=== PATIENT | female | born 1955 | race Caucasian/White ===

== ENCOUNTER 2016-04-28 11:51 | Emergency (ER) | payer MEDICARE, OTHER ==
[~2016-04-28] VITALS: Ht 157.5 cm; Wt 57.6 kg
[~2016-04-28 11:51] MED LIST: ALBU0.63 IH; DILT120C97 PO; DOXY100C2 PO; Doxycycline Hyclate PO; GLIM1TAB2 PO; GUAI600T38 PO; HYDR-2762 PO; HYDR-971 PO; LEVO500T38 PO; LIDO700A4 TP; LOSA25TA4 PO; METH4TAB2 PO; MONT10TA6 PO; ONDA4TAB7 PO; PANT40GR PO; PROAIR HFA8.5 GM IH; PROM25TA10 PO; SIMV40TA3 PO; TIOT18CA IH; VALS80TA3 PO
[2016-04-28] MEDS ORDERED: IV NORMAL SALINE 1000ML BAG 1,000 ML IV SCH (13:01)
[2016-04-28] MEDS ORDERED: ONDANSETRON PF 4 MG/2 ML VIAL. IV ONE (13:15)
[2016-04-28 13:16] LABS: BASO % 1 % (0-3); EOS % 2 % (0-3); HEMATOCRIT 36.8 % (36.0-47.0); HEMOGLOBIN 12.3 g/dL (12.0-15.5); LYMPH # 0.8 x10^3/uL (1.0-4.8); LYMPH % 10 % (24-48); MEAN CORPUSCULAR HEMOGLOBIN 29 pg (25-35); MEAN CORPUSCULAR HGB CONC 33 g/dL (31-37); MEAN CORPUSCULAR VOLUME 87 fL (79-100); MONO % 8 % (0-9); NEUT % 80 % (31-73); PLATELET COUNT 477 x10^3/uL (140-400); RED BLOOD COUNT 4.25 x10^6/uL (3.50-5.40); RED CELL DISTRIBUTION WIDTH 13.8 % (11.5-14.5); WHITE BLOOD COUNT 8.4 x10^3/uL (4.0-11.0)
[2016-04-28] MEDS: MORPHINE SULFATE 4 MG/ML DISP.SYRIN. IV/SQ PRN ×2 (13:25→14:48)
[2016-04-28 13:30] LABS: ALBUMIN 3.5 g/dL (3.4-5.0); DIRECT BILIRUBIN 0.1 mg/dL (0.0-0.2); TOTAL BILIRUBIN 0.6 mg/dL (0.2-1.0); TOTAL PROTEIN 7.4 g/dL (6.4-8.2)
[2016-04-28] MEDS ORDERED: IOHEXOL 300 MG/ML 75 ML VIAL IV ONE (13:30)
[2016-04-28 13:36] LABS: BILIRUBIN,URINE NEGATIVE (NEG); GLUCOSE,URINE NEGATIVE (NEG); NITRITE,URINE NEGATIVE (NEG); PROTEIN,URINE NEGATIVE (NEG-TRACE); UROBILINOGEN,URINE 0.2 mg/dL (0.2 mg/dL)
[2016-04-28 13:48] LABS: BACTERIA,URINE MANY /HPF (0-FEW); RBC,URINE OCC /HPF (0-2); SQUAMOUS EPITHELIAL CELL,UR FEW /LPF
--- NOTE | 2016-04-28 14:19 | RAD ---
CT of the abdomen and pelvis with contrast, 04/28/2016: History: Left-sided pain Multidetector CT imaging was performed following an IV bolus injection of iodinated contrast material. No oral contrast material was administered for this exam. There is a moderate thoracolumbar scoliosis. There is chronic atelectasis and/or scarring posteromedially in the right base, improved since the previous study. A small pleural effusion evident on the previous study has diminished with only a trace amount of residual right-sided pleural fluid. The gallbladder is surgically absent. Unchanged small low-density lesions in the liver are compatible with cysts. The pancreas demonstrates fatty change. The spleen is unremarkable. There is deformity of the lower pole of the left kidney with increased cortical densities compatible with calcifications and/or sutures. These postsurgical findings are unchanged. The kidneys show no evidence of obstruction. A couple of unchanged tiny low density lesions in the right kidney are too small to definitively characterize but are probably cysts. The abdominal aorta is unremarkable. Portions of the lower pelvis are partially obscured by artifacts arising from a right hip prosthesis. No abdominal or pelvic adenopathy is seen. Several small sigmoid diverticula are noted. There is mild streaky increased density in the paracolic fat at the junction of the descending colon and sigmoid. The appearance suggests mild inflammation or scarring. No paracolic abscess is identified. There is a moderate amount stool in the colon. The cecum extends medially to the midline. The small bowel loops are unremarkable. No free air or free fluid is evident in the abdomen or pelvis. Vertebrae in the lower thoracic spine are partially fused. A small sclerotic focus in the superior aspect of the left femoral head suggests avascular necrosis. IMPRESSION: 1. Minimal sigmoid diverticulosis. 2. Minimal paracolic inflammation at the junction of the descending colon and sigmoid colon 3. Previous partial left nephrectomy. 4. Probable right renal and hepatic cysts. 5. Chronic right basilar atelectasis and/or scarring, improved since 10/30/2015. 5. Chronic musculoskeletal findings as described above.
[2016-04-28] MEDS ORDERED: DICY10CA53 PO (14:49)
[2016-04-28] MEDS ORDERED: AMOX1TAB61 PO (14:49)
--- NOTE | 2016-04-28 14:50 | PHYS DOC ---
Past Medical History Past Medical History: Asthma, COPD, Diabetes-Type II, Hypertension, Other Additional Past Medical Histor: SCOLIOSIS Past Surgical History: Hip Replacement, Other Additional Past Surgical Histo: PARTIAL LEFT KIDNEY REMOVED, LEFT OVARY REMOVED , R hip Alcohol Use: None Drug Use: None Adult General Chief Complaint Chief Complaint: ABDOMINAL PAIN HPI HPI Patient is a 60 year old female who presents with achy, constant LLQ abd pain for the past month that has gradually worsened over the past week. She is eating , drinking, urinating and stooling normal. She denies food fear or pain with eating. She denies f/c, dysuria, hematuria, diarrhea, constipation, bloody or dark stools. She states she has never had pain like this before. She took a home hydrocodone without relief prior to calling EMS. Review of Systems Review of Systems Constitutional: Denies fever or chills [] Eyes: Denies change in visual acuity, redness, or eye pain [] HENT: Denies nasal congestion or sore throat [] Respiratory: Denies cough or shortness of breath [] Cardiovascular: No additional information not addressed in HPI [] GI: Denies nausea, vomiting, bloody stools or diarrhea [] : Denies dysuria or hematuria [] Musculoskeletal: Denies back pain or joint pain [] Integument: Denies rash or skin lesions [] Neurologic: Denies headache, focal weakness or sensory changes [] Endocrine: Denies polyuria or polydipsia [] Current Medications Current Medications Current Medications Medications (Trade) Dose Ordered Sig/Thanh Start Time Stop Time Status Last Admin Dose Admin Iohexol (Omnipaque 300 Mg/ml) 75 ml 1X ONCE 04/28/16 13:30 04/28/16 13:31 DC 04/28/16 13:50 75 ML Morphine Sulfate 4 mg 4 mg PRN Q15MIN PRN 04/28/16 13:15 04/28/16 15:31 DC 04/28/16 14:48 4 MG Ondansetron HCl (Zofran) 4 mg 1X ONCE 04/28/16 13:15 04/28/16 13:16 DC 04/28/16 13:25 4 MG Sodium Chloride (Iv Sodium Chloride 0.9% 1000ml Bag) 1,000 ml @ 1,000 mls/hr Q1H 04/28/16 13:01 04/28/16 14:00 DC 04/28/16 13:25 1,000 MLS/HR Allergies Allergies Allergies Coded Allergies Type Severity Reaction Last Updated Verified aspirin Allergy Intermediate 07/24/13 Yes Physical Exam Physical Exam Constitutional: Well developed, well nourished, no acute distress, non-toxic appearance. [] HENT: Normocephalic, atraumatic, bilateral external ears normal, oropharynx moist, nose normal. [] Eyes: PERRLA, EOMI. [] Neck: Normal range of motion, supple. [] Cardiovascular:Heart rate regular rhythm, no murmur [] Lungs & Thorax: Bilateral breath sounds clear to auscultation [] Abdomen: Bowel sounds normal, soft, moderate LLQ tenderness, no guarding or rebound. [] Skin: Warm, dry, no erythema, no rash. [] Back: No tenderness, no CVA tenderness. [] Extremities: ROM intact, no edema. [] Neurologic: Alert and oriented X 3, normal motor function, normal sensory function, no focal deficits noted. [] Psychologic: Affect normal, judgement normal, mood normal. [] Current Patient Data Vital Signs Vital Signs Date Time Temp Pulse Resp B/P Pulse Ox O2 Delivery O2 Flow Rate FiO2 04/28/16 15:20 104 18 135/61 95 Room Air 04/28/16 14:48 2 04/28/16 11:52 98.2 98.2 Lab Values Laboratory Tests Test 04/28/16 12:30 04/28/16 13:19 04/28/16 13:20 White Blood Count 8.4x10^3/uL (4.0-11.0) Red Blood Count 4.25x10^6/uL (3.50-5.40) Hemoglobin 12.3g/dL (12.0-15.5) Hematocrit 36.8% (36.0-47.0) Mean Corpuscular Volume 87fL (79-100) Mean Corpuscular Hemoglobin 29pg (25-35) Mean Corpuscular Hemoglobin Concent 33g/dL (31-37) Red Cell Distribution Width 13.8% (11.5-14.5) Platelet Count 477x10^3/uL (140-400) H Neutrophils (%) (Auto) 80% (31-73) H Lymphocytes (%) (Auto) 10% (24-48) L Monocytes (%) (Auto) 8% (0-9) Eosinophils (%) (Auto) 2% (0-3) Basophils (%) (Auto) 1% (0-3) Neutrophils # (Auto) 6.7x10^3uL (1.8-7.7) Lymphocytes # (Auto) 0.8x10^3/uL (1.0-4.8) L Monocytes # (Auto) 0.7x10^3/uL (0.0-1.1) Eosinophils # (Auto) 0.2x10^3/uL (0.0-0.7) Basophils # (Auto) 0.0x10^3/uL (0.0-0.2) Total Bilirubin 0.6mg/dL (0.2-1.0) Direct Bilirubin 0.1mg/dL (0.0-0.2) Aspartate Amino Transferase (AST) 16U/L (15-37) Alanine Aminotransferase (ALT) 14U/L (14-59) Alkaline Phosphatase 108U/L (46-116) Total Protein 7.4g/dL (6.4-8.2) Albumin 3.5g/dL (3.4-5.0) Lipase 50U/L (73-393) L POC Hemoglobin 12.6g/dL (12-15) POC Hematocrit 37% (36-40) POC Sodium 139mmol/L (135-145) POC Potassium 3.7mmol/L (3.5-5.0) POC Chloride 96mmol/L (98-110) L POC Total CO2 29mmol/L (23-32) Anion Gap 18mmol/L (6-14) H POC Blood Urea Nitrogen 9mg/dL (8-26) POC Creatinine 0.7mg/dL (0.5-1.4) Glucose Level 88mg/dL (70-99) POC Ionized Calcium (Cristal) 1.11mmol/L (1.13-1.32) L Urine Collection Type Unknown Urine Color Yellow Urine Clarity Clear Urine pH 8.0 Urine Specific [place] 1.010 Urine Protein Negativemg/dL (NEG-TRACE) Urine Glucose (UA) Negativemg/dL (NEG) Urine Ketones (Stick) Tracemg/dL (NEG) Urine Blood Negative (NEG) Urine Nitrite Negative (NEG) Urine Bilirubin Negative (NEG) Urine Urobilinogen Dipstick 0.2mg/dL (0.2 mg/dL) Urine Leukocyte Esterase Small (NEG) Urine RBC Occ/HPF (0-2) Urine WBC 1-4/HPF (0-4) Urine Squamous Epithelial Cells Few/LPF Urine Bacteria Many/HPF (0-FEW) Urine Hyaline Casts Occasional/HPF Laboratory Tests 04/28/16 12:30 Laboratory Tests 04/28/16 13:19 Radiology/Procedures Radiology/Procedures CT abdomen and pelvis with IV contrast IMPRESSION: 1. Minimal sigmoid diverticulosis. 2. Minimal paracolic inflammation at the junction of the descending colon and sigmoid colon 3. Previous partial left nephrectomy. 4. Probable right renal and hepatic cysts. 5. Chronic right basilar atelectasis and/or scarring, improved since 10/30/2015. 5. Chronic musculoskeletal findings as described above. DICTATED and SIGNED BY: BREEZY BAKER MD DATE: 04/28/16 1402 Course & Med Decision Making Course & Med Decision Making Pertinent Labs and Imaging studies reviewed. (See chart for details) Lab with left shift and thombocytosis, otherwise unremarkable. CT as above concerning for colitis. Her symptoms have improved after medications. She is tolerating po intake. Will treat with po antibiotics and bentyl. Return precautions given. She understood and agrees with plan. Dragon Disclaimer Dragon Disclaimer This electronic medical record was generated, in whole or in part, using a voice recognition dictation system. Departure Departure Impression: Primary Impression: Colitis Disposition: 01 HOME, SELF-CARE Condition: STABLE Referrals: JACKIE REESE MD (PCP) Patient Instructions: Colitis Additional Instructions: Take Augmentin for colitis. Take Bentyl for abdominal pain. Follow-up with your primary care doctor within one week. Return for any concerns. Scripts Dicyclomine Hcl (Bentyl)10 Mg [id number] Mg PO TID #30 TAB Prov:Lucas ARTHUR MD 04/28/16 Amoxicillin/Potassium Clav (Augmentin 875-125 Tablet)1 Each Tablet1 Tab PO BID # 20 TAB Prov:Lucas ARTHUR MD 04/28/16 Lucas ARTHUR MD Apr 28, 2016 14:49
[2016-04-28 15:02] LABS: POTASSIUM ISTAT 3.7 mmol/L (3.5-5.0)
--- NOTE | 2016-04-28 15:07 | ACF ---
Admission Forms Criteria Admission Criteria Met?: Yes VENITA BOLIVAR Apr 28, 2016 15:07
[2016-04-28 15:20] VITALS: BP 135/61
== END 2016-04-28 15:20 | disposition home or self-care (01) ==
LOC: ER 11:51
DX: K52.9 Noninfective gastroenteritis and colitis, unspecified (principal); J45.909 Unspecified asthma, uncomplicated; J44.9 Chronic obstructive pulmonary disease, unspecified; E11.9 Type 2 diabetes mellitus without complications; I10 Essential (primary) hypertension; M41.9 Scoliosis, unspecified; Z90.5 Acquired absence of kidney; Z88.6 Allergy status to analgesic agent; Z90.721 Acquired absence of ovaries, unilateral
CPT/HCPCS: 36415; 74177; 80047; 80076; 81001; 83690; 85027; 87086; 96361; 96374; 96375; 96376; 99285; J2270; J2405; J7030; Q9967

== ENCOUNTER 2016-08-16 13:50 | Inpatient (IN) | payer OTHER ==
[~2016-08-16] VITALS: Ht 157.5 cm; Wt 58.8 kg
[~2016-08-16 13:50] MED LIST changes: +AMOX1TAB61 PO; +DICY10CA53 PO; +DILT120C80 PO; -DILT120C97 PO; -GUAI600T38 PO; +GUAI600T47 PO; -LEVO500T38 PO; +LEVO500T59 PO
[2016-08-16] MEDS ORDERED: NITROGLYCERIN SUBLINGUAL 0.4 MG BOTTLE OF 25. SL PRN ×2 (14:00→15:00)
[2016-08-16] MEDS ORDERED: fentaNYL PF VIAL 100 MCG/2 ML VIAL IV PRN (14:00)
--- NOTE | 2016-08-16 14:04 | ED.ADGEN ---
Past Medical History Past Medical History: Asthma, COPD, Diabetes-Type II, Hypertension, Other Additional Past Medical Histor: SCOLIOSIS Past Surgical History: Hip Replacement, Other Additional Past Surgical Histo: PARTIAL LEFT KIDNEY REMOVED, LEFT OVARY REMOVED , R hip Alcohol Use: None Drug Use: None Adult General Chief Complaint Chief Complaint: CHEST PAIN HPI HPI Patient is a 60 year old woman, history of COPD, CAD, hypertension, who presents to the emergency department via EMS with a complaint of chest pain. Patient states the chest pain began at 1 PM, is located in the step sternal chest, associated with some shortness of breath, denies any nausea, vomiting, lightheadedness or dizziness, any weakness in this or tingling, any radiation of the pain. She states that she had similar symptoms several years ago, which were more mild, associated with an asthma attack. She did attempt using albuterol inhaler DuoNeb without relief. She did this shortly before calling EMS. She states that she has known CAD, and last received a stress test 3 or 4 years ago, but is unable to name her supply analyst or give additional information. Does not believe she had a catheterization. Denies any recent travel or surgery, and history of DVT or PE. States she's been compliant with her metformin. Denies any other symptoms or complaints at this time. Received nitroglycerin en route to the ED 1 the EMS states pain went from a 10 to an 8. She states she is allergic to aspirin. Review of Systems Review of Systems Constitutional: Denies fever or chills. [] Eyes: Denies change in visual acuity. [] HENT: Denies nasal congestion or sore throat. [] Respiratory: Denies cough, complaining of mild shortness of breath with chest pain since 1 PM this afternoon. Mild improvement with DuoNeb treatment. Cardiovascular: Substernal chest pain, no edema. GI: Denies abdominal pain, nausea, vomiting, bloody stools or diarrhea. [] : Denies dysuria. [] Musculoskeletal: Denies back pain or joint pain. [] Integument: Denies rash. [] Neurologic: Denies headache, focal weakness or sensory changes. [] Endocrine: Denies polyuria or polydipsia. [] Lymphatic: Denies swollen glands. [] Psychiatric: Denies depression or anxiety. [] Current Medications Current Medications Current Medications Medications (Trade) Dose Ordered Sig/Thanh Start Time Stop Time Status Last Admin Dose Admin Acetaminophen (Tylenol) 650 mg PRN Q4HRS PRN 08/16/16 15:00 08/17/16 14:59 Albuterol/ Ipratropium (Duoneb) 3 ml RTQID 08/16/16 16:00 08/17/16 15:59 Dextrose (Dextrose 50%-Water Syringe) 12.5 gm PRN Q15MIN PRN 08/16/16 15:00 Fentanyl Citrate (Fentanyl 2ml Vial) 25 mcg PRN Q15MIN PRN 08/16/16 14:00 08/17/16 13:59 08/16/16 14:13 25 MCG Insulin Aspart (NovoLOG) 0-5 UNITS TIDWMEALS 08/16/16 17:00 Methylprednisolone Sodium Succinate (SOLU-Medrol 125MG VIAL) 125 mg 1X ONCE 08/16/16 14:30 08/16/16 14:31 DC 08/16/16 14:15 125 MG Morphine Sulfate 4 mg PRN Q2HR PRN 08/16/16 15:00 08/17/16 14:59 Nitroglycerin (Nitrostat) 0.4 mg PRN Q5MIN PRN 08/16/16 15:00 08/17/16 14:59 Ondansetron HCl (Zofran) 4 mg PRN Q8HRS PRN 08/16/16 15:00 08/17/16 14:59 Prednisone (Prednisone) 40 mg DAILY 08/17/16 09:00 UNV Allergies Allergies Allergies Coded Allergies Type Severity Reaction Last Updated Verified aspirin Allergy Intermediate 07/24/13 Yes Physical Exam Physical Exam Constitutional: Well developed, well nourished, no acute distress, non-toxic appearance. [] HENT: Normocephalic, atraumatic, bilateral external ears normal, oropharynx moist, no oral exudates, nose normal. [] Eyes: PERRLA, EOMI, conjunctiva normal, no discharge. [] Neck: Normal range of motion, no tenderness, supple, no stridor. [] Cardiovascular:Heart rate regular rhythm, no murmur, S1, S2, no rubs or gallops. [] Lungs & Thorax: Patient with wheezing throughout, expiratory greater than inspiratory, diminished breath sounds throughout. No chest wall crepitus or tenderness. [] Abdomen: Bowel sounds normal, soft, mild initial patient epigastric region, no rebound, rigidity, no guarding, no masses, no pulsatile masses. [] Skin: Warm, dry, no erythema, no rash. [] Back: No tenderness, patient with severe scoliosis and kyphosis, no CVA tenderness. [] Extremities: No tenderness, no cyanosis, no clubbing, ROM intact, no edema. Negative Homans sign. [] Neurologic: Alert and oriented X 3, normal motor function, normal sensory function, no focal deficits noted. [] Psychologic: Affect normal, judgement normal, mood normal. [] Current Patient Data Vital Signs Vital Signs Date Time Temp Pulse Resp B/P (MAP) Pulse Ox O2 Delivery O2 Flow Rate FiO2 08/16/16 14:13 20 08/16/16 14:13 93 Room Air 08/16/16 13:55 98.8 103 108/77 (87) 98.8 Lab Values Laboratory Tests Test 08/16/16 13:58 White Blood Count 6.6 x10^3/uL (4.0-11.0) Red Blood Count 4.01 x10^6/uL (3.50-5.40) Hemoglobin 11.7 g/dL (12.0-15.5) L Hematocrit 34.6 % (36.0-47.0) L Mean Corpuscular Volume 86 fL (79-100) Mean Corpuscular Hemoglobin 29 pg (25-35) Mean Corpuscular Hemoglobin Concent 34 g/dL (31-37) Red Cell Distribution Width 15.1 % (11.5-14.5) H Platelet Count 417 x10^3/uL (140-400) H Neutrophils (%) (Auto) 74 % (31-73) H Lymphocytes (%) (Auto) 15 % (24-48) L Monocytes (%) (Auto) 9 % (0-9) Eosinophils (%) (Auto) 2 % (0-3) Basophils (%) (Auto) 1 % (0-3) Neutrophils # (Auto) 4.9 x10^3uL (1.8-7.7) Lymphocytes # (Auto) 1.0 x10^3/uL (1.0-4.8) Monocytes # (Auto) 0.6 x10^3/uL (0.0-1.1) Eosinophils # (Auto) 0.1 x10^3/uL (0.0-0.7) Basophils # (Auto) 0.1 x10^3/uL (0.0-0.2) Sodium Level 137 mmol/L (136-145) Potassium Level 4.3 mmol/L (3.5-5.1) Chloride Level 101 mmol/L (98-107) Carbon Dioxide Level 31 mmol/L (21-32) Anion Gap 5 (6-14) L Blood Urea Nitrogen 11 mg/dL (7-20) Creatinine 0.7 mg/dL (0.6-1.0) Estimated GFR (Cockcroft-Gault) 85.6 Glucose Level 102 mg/dL (70-99) H Calcium Level 9.2 mg/dL (8.5-10.1) Total Bilirubin 0.3 mg/dL (0.2-1.0) Direct Bilirubin 0.1 mg/dL (0.0-0.2) Aspartate Amino Transferase (AST) 12 U/L (15-37) L Alanine Aminotransferase (ALT) 12 U/L (14-59) L Alkaline Phosphatase 104 U/L (46-116) Troponin I Quantitative < 0.017 ng/mL (0.000-0.055) UF-Ffc-I-Type Natriuretic Peptide 91 pg/mL (0-124) Total Protein 7.0 g/dL (6.4-8.2) Albumin 3.2 g/dL (3.4-5.0) L Lipase 41 U/L (73-393) L Laboratory Tests 08/16/16 13:58 Laboratory Tests 08/16/16 13:58 EKG EKG EC: Sinus tachycardia, heart rate 104 bpm, left axis deviation with left anterior fascicular block and incomplete right bundle-branch block noted, regular laboratory noted, contour malleus noted in the inferior and anterior leads. Abnormal ECG, does not meet STEMI criteria. As interpreted by me. 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 PHYSICIAN: EDWARD DYER DO REASON: CP PROCEDURE: PORTABLE CHEST 1V Examination: Single frontal view the chest. History: History of chest pain, high blood pressure. Comparison: 10/29/2015 Findings: Marked scoliosis again identified which limits evaluation. The cardiomediastinal silhouette grossly appears unchanged. No obvious acute infiltrate or visualized pneumothorax identified. Impression: No acute cardiopulmonary findings. DICTATED and SIGNED BY: THERESA DOWD MD DATE: 08/16/161416 CC: JACKIE REESE MD; EDWARD DYER DO ~ Course & Med Decision Making Course & Med Decision Making Pertinent Labs and Imaging studies reviewed. (See chart for details) Patient wheezing, DuoNeb given in the emergency department she states it helped slightly, patient also received nitroglycerin as stated, states that aspirin makes her shortness of breath acute and significantly worsened, therefore aspirin was held in the emergency department based on this report. Initial troponin was unremarkable, x-ray reveals scoliosis but no evidence of acute cardiopulmonary abnormalities. ECG noted to have an incomplete right bundle- branch block left anterior fascicular block, when compared to previous ECG from 10/30/2015, some morphologic changes noted in the anterior leads, abnormal, but does not meet STEMI criteria. I believe the patient's COPD is also playing a role, as breathing treatment did help. However, based on patient's age and medical history, and length of time since her previous cardiac evaluation, admission for cardiac rule out would be appropriate. I did discuss findings as above with patient, she is agreeable for initial hospital for a cardiac rule out and evaluation with cardiology, continued monitoring. Findings as above discussed with Dr. Crow of internal medicine, patient accepted to his service a full admission to the cardiac telemetry floor with consultation placed for Dr. Shine of cardiology, serial troponins and repeat ECG in the morning. Patient resting comfortably awaiting transfer to the floor, in sinus rhythm on the monitor. Dragon Disclaimer Dragon Disclaimer This electronic medical record was generated, in whole or in part, using a voice recognition dictation system. Departure Impression: Primary Impression: Chest pain Additional Impression: COPD with exacerbation Disposition: ADMITTED INPATIENT Admitting Physician: Laurie Crow Condition: IMPROVED Problem Qualifiers EDWARD DYER DO August 16, 2016 14:04
[2016-08-16 14:13] LABS: BASO # 0.1 x10^3/uL (0.0-0.2); BASO % 1 % (0-3); EOS % 2 % (0-3); HEMATOCRIT 34.6 % (36.0-47.0); HEMOGLOBIN 11.7 g/dL (12.0-15.5); LYMPH % 15 % (24-48); MEAN CORPUSCULAR HEMOGLOBIN 29 pg (25-35); MEAN CORPUSCULAR HGB CONC 34 g/dL (31-37); MEAN CORPUSCULAR VOLUME 86 fL (79-100); MONO % 9 % (0-9); NEUT % 74 % (31-73); PLATELET COUNT 417 x10^3/uL (140-400); RED BLOOD COUNT 4.01 x10^6/uL (3.50-5.40); RED CELL DISTRIBUTION WIDTH 15.1 % (11.5-14.5); WHITE BLOOD COUNT 6.6 x10^3/uL (4.0-11.0)
--- NOTE | 2016-08-16 14:21 | RAD ---
Examination: Single frontal view the chest. History: History of chest pain, high blood pressure. Comparison: 10/29/2015 Findings: Marked scoliosis again identified which limits evaluation. The cardiomediastinal silhouette grossly appears unchanged. No obvious acute infiltrate or visualized pneumothorax identified. Impression: No acute cardiopulmonary findings.
[2016-08-16 14:26] LABS: CALCIUM 9.2 mg/dL (8.5-10.1); CREATININE 0.7 mg/dL (0.6-1.0); GFR 85.6; POTASSIUM 4.3 mmol/L (3.5-5.1)
[2016-08-16 14:29] LABS: ALBUMIN 3.2 g/dL (3.4-5.0); DIRECT BILIRUBIN 0.1 mg/dL (0.0-0.2); TOTAL BILIRUBIN 0.3 mg/dL (0.2-1.0)
[2016-08-16] MEDS ORDERED: IPRATRPIUM/ALBUTEROL 0.5/2.5MG 3 ML NEBU. NEB ONE (14:30)
[2016-08-16] MEDS ORDERED: methylPREDNISolone SOD SUCC PF 125 MG/2 ML VIAL. IV ONE (14:30)
[2016-08-16] MEDS ORDERED: ACETAMINOPHEN 325 MG TABLET. PO PRN (15:00)
[2016-08-16] MEDS ORDERED: ONDANSETRON PF 4 MG/2 ML VIAL. IV PRN (15:00)
[2016-08-16] MEDS ORDERED: DEXTROSE 50% 25 GM / 50ML DISP.SYRIN. IV PRN (15:00)
[2016-08-16] MEDS: IPRATRPIUM/ALBUTEROL 0.5/2.5MG 3 ML NEBU. NEB SCH ×2 (16:00→20:06)
[2016-08-16 16:30] VITALS: BP 128/92
[2016-08-16] MEDS ORDERED: SIMV10TA3 PO (16:52)
[2016-08-16] MEDS ORDERED: LOSA50TA6 PO (16:52)
[2016-08-16] MEDS ORDERED: GUAI600T47 PO (16:59)
[2016-08-16] MEDS ORDERED: GLIM1TAB2 PO (16:59)
[2016-08-16] MEDS ORDERED: BUDE10.2 IH (16:59)
[2016-08-16] MEDS ORDERED: CHOL500050 PO (16:59)
[2016-08-16] MEDS ORDERED: OXYB5TAB33 PO (16:59)
[2016-08-16] MEDS: INSULIN ASPART 300 UNITS/3 ML INSULN.PEN SQ SCH (17:52)
[2016-08-16] MEDS: MORPHINE SULFATE 4 MG/ML DISP.SYRIN. IV PRN (18:39)
--- NOTE | 2016-08-16 18:39 | ACF ---
Admission Forms Criteria COPD Clinical Indications for Admission to Inpatient Care (Place 'X' for any and all applicable criteria): Admission is indicated for ANY ONE of the following (1)(2)(3): [X]I. Acute exacerbation by high-risk comorbidity (e.g., pneumonia, dysrhythmia, heart failure, pleural effusion, pneumothorax) or severe underlying COPD (e.g., steroid dependent) [ ]II. Inpatient admission required rather than observation care (see Chronic Obstructive Pulmonary Disease: Observation Care) because of ANY ONE of the following: [ ]a) New or pre-existing signs or symptoms of COPD (eg, dyspnea or Tachypnea at rest or with minimal activity) that persist despite outpatient and observation care treatment [ ]b) New-onset hypoxemia (room air SaO2 less than 90%, PO2 less than 60 mm Hg (8.0 kPa)) that persists despite outpatient and observation care treatment [ ]c) Worsening of pre-existing hypoxemia (eg, new or increased requirement for supplemental oxygen to maintain oxygenation at baseline level) that persists despite outpatient and observation care treatment, with oxygen treatment needs performable only in acute inpatient setting [ ]d) Hypercarbia (PCO2 greater than 40 mm Hg (5.3 kPa))-induced respiratory acidosis (pH less than 7.35) that persists despite outpatient and observation care treatment [ ]e) Supplemental oxygen or respiratory treatments for over 24 hours that are performable only in acute inpatient setting [ ]f) Chest tube placement with active evacuation (e.g., suction, drainage) (5) [ ]g) Other condition, treatment or monitoring requiring inpatient admission [ ]III. Planned invasive surgical or diagnostic procedures requiring acute- care hospitalization [ ]IV. Acute respiratory failure (e.g., uncompensated hypercarbia, severe hypoxemia) [ ]V. Severe comorbid condition (e.g., severe steroid myopathy, acute vertebral fracture) that has acutely worsened pulmonary function [ ]. Confusion state, lethargy, obtundation, stupor or coma Extended stay beyond goal length of stay may be needed for (31)(32): [ ]a ) Respiratory Failure. [ ]b) Severe or persisting hypoxemia or hypercarbia [ ]c) Severe or persistent dyspnea [ ]d) Comorbidities (e.g. chronic heart failure, atrial fibrillation with rapid response, pneumonia) [ ]e) Malnutrition The original [facility] content created by Lizz Bowser has been revised. The portions of the content which have been revised are identified through the use of italic text or in bold, and Lizz Bowser has neither reviewed nor approved the modified material. All other unmodified content is copyright [facility]. Please see references footnoted in the original [facility] edition 2016 Admission Criteria Met?: Yes MAIA GONZALEZ August 16, 2016 18:39
[2016-08-16 19:50] VITALS: BP 121/83
[2016-08-16 23:10] VITALS: BP 108/71
[2016-08-17] MEDS: MORPHINE SULFATE 4 MG/ML DISP.SYRIN. IV PRN (00:17)
--- NOTE | 2016-08-17 00:39 | HP ---
ADMIT DATE: 08/16/2016 CHIEF COMPLAINT: Chest pain. HISTORY OF PRESENT ILLNESS: The patient is a pleasant 60-year-old female well known to my service. She is cognitively challenged. She also has scoliosis and fell out of the ____ window when she was [age] years old, so she has back injury; she has got rods in her back. She also has COPD and other medical issues. Please see below. Basically, today she presents here with chest pain, rates it 7/10, radiating to the back. She tried increasing her home meds, but that does not work. I discussed the case with the ER physician. They gave her some nitro that seemed to help but I am going to go ahead and admit the patient and consult Cardiology. PAST MEDICAL HISTORY: Cognitively challenged, fall with back injury, she has got rods in her back, GERD, hypertension, hyperlipidemia, diabetes, and COPD. ALLERGIES: ASPIRIN. FAMILY HISTORY: Coronary artery disease. SOCIAL HISTORY: She is on disability. She does not smoke currently. No drinking or drugs. She is under a lot of financial pressure states she gets anxious sometimes. MEDICATIONS: Reviewed, please refer to the MRAD. REVIEW OF SYSTEMS: GENERAL: No history of weight change, weakness or fevers. SKIN: No bruising, hair changes or rashes. EYES: No blurred, double or loss of vision. NOSE AND THROAT: No history of nosebleeds, hoarseness or sore throat. HEART: She complains of chest pain. LUNGS: Denies cough, hemoptysis, wheezing or shortness of breath. GASTROINTESTINAL: Denies changes in appetite, nausea, vomiting, diarrhea or constipation. GENITOURINARY: No history of frequency, urgency, hesitancy or nocturia. NEUROLOGIC: Denies history of numbness, tingling, tremor or weakness. PSYCHIATRIC: No history of panic, anxiety or depression. ENDOCRINE: No history of heat or cold intolerance, polyuria or polydipsia. EXTREMITIES: Denies muscle weakness, joint pain, pain on walking or stiffness. PHYSICAL EXAMINATION: VITAL SIGNS: Temperature afebrile, pulse 77, respirations 20, and blood pressure 144/67. GENERAL: She is alert, cooperative, pleasant. HEART: Normal S1, S2. LUNGS: Clear, but diminished. ABDOMEN: Soft, positive bowel sounds. EXTREMITIES: Trace edema. SKIN: No rashes. PSYCHIATRIC: She is anxious. VASCULAR: Good capillary refill. ENDOCRINE: No thyromegaly. LYMPHATICS: No cervical nodes. HEMATOPOIETIC: No bruising. LABORATORY DATA: Troponin is ____. EKG shows sinus rhythm with some subtle ST changes. ASSESSMENT AND PLAN: Chest pain, rule out coronary artery disease. The patient is being admitted. We will check serial enzymes, serial EKGs, consult cardiology, suspect she will need a stress test and continue home medicines. DAYLIN ANDINO DO DR: MELA/jose JOB#: [id number] / [id number]
[2016-08-17 03:20] VITALS: BP 101/73
--- NOTE | 2016-08-17 06:12 | EKG ---
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
[2016-08-17 06:24] LABS: BASO % 0 % (0-3); EOS % 0 % (0-3); HEMATOCRIT 34.5 % (36.0-47.0); HEMOGLOBIN 11.7 g/dL (12.0-15.5); LYMPH # 0.4 x10^3/uL (1.0-4.8); LYMPH % 7 % (24-48); MEAN CORPUSCULAR HEMOGLOBIN 29 pg (25-35); MEAN CORPUSCULAR HGB CONC 34 g/dL (31-37); MEAN CORPUSCULAR VOLUME 86 fL (79-100); MONO % 2 % (0-9); NEUT % 91 % (31-73); PLATELET COUNT 415 x10^3/uL (140-400); RED CELL DISTRIBUTION WIDTH 14.9 % (11.5-14.5); WHITE BLOOD COUNT 6.1 x10^3/uL (4.0-11.0)
[2016-08-17 06:37] LABS: CALCIUM 9.6 mg/dL (8.5-10.1); CREATININE 0.5 mg/dL (0.6-1.0); GFR 126.3; POTASSIUM 4.7 mmol/L (3.5-5.1)
[2016-08-17 07:00] VITALS: BP 111/75
[2016-08-17] MEDS: INSULIN ASPART 300 UNITS/3 ML INSULN.PEN SQ SCH ×3 (08:00→17:00)
[2016-08-17] MEDS: IPRATRPIUM/ALBUTEROL 0.5/2.5MG 3 ML NEBU. NEB SCH ×2 (08:03→11:46)
--- NOTE | 2016-08-17 08:20 | EKG ---
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
[2016-08-17] MEDS ORDERED: predniSONE 20 MG TABLET PO SCH (09:00)
--- NOTE | 2016-08-17 09:36 | PDOC2 ---
CARDIAC CONSULT DATE OF CONSULT Date of Consult DATE: 08/17/16 TIME: 09:29 REASON FOR CONSULT Reason for Consult: Chest Pain REFERRING PHYSICIAN Referring Physician: Dr. Louis SOURCE Source: Chart review, Patient HISTORY OF PRESENT ILLNESS HISTORY OF PRESENT ILLNESS This is a 60 yo female who presented with complaints of chest pain. Patient reports pain has been intermittent for the last couple of days. Located in her right chest. Describes as soreness; non-radiating. No specific exacerbating or precipitating factors. Relieved with morphine. Associated with some mild SOA, which was improved with breathing treatment. Denies any dizziness, diaphoresis, palpitations, or nausea/vomiting. No recent OCAMPO, orthopnea, or LE edema. PAST MEDICAL HISTORY Cardiovascular: CHF, HTN, Hyperlipidemia Pulmonary: Asthma, COPD CENTRAL NERVOUS SYSTEM: Vertigo (pertinent hx ), Other GI: GERD Heme/Onc: No pertinent hx Hepatobiliary: No pertinent hx Psych: No pertinent hx Musculoskeletal: Osteoarthritis, Other (scoliosis ) Infectious disease: No pertinent hx ENT: No pertinent hx Renal/: No pertinent hx Endocrine: Diabetes Dermatology: No pertinent hx PAST SURGICAL HISTORY Past Surgical History: Total hip replacement (right ), Other (left partial nephrectomy ) FAMILY HISTORY Family History: Cancer, Heart Disease, Hypertension SOCIAL HISTORY Smoke: No ALCOHOL: none Drugs: None Lives: with Family CURRENT MEDICATIONS CURRENT MEDICATIONS Current Medications Medications (Trade) Dose Ordered Sig/Thanh Route PRN Reason Start Time Stop Time Status Last Admin Dose Admin Fentanyl Citrate (Fentanyl 2ml Vial) 25 mcg PRN Q15MIN PRN IV PAIN GREATER THAN 3/10 08/16/16 14:00 08/17/16 13:59 08/16/16 14:13 Albuterol/ Ipratropium (Duoneb) 3 ml 1X ONCE NEB 08/16/16 14:30 08/16/16 14:31 DC 08/16/16 14:13 Methylprednisolone Sodium Succinate (SOLU-Medrol 125MG VIAL) 125 mg 1X ONCE IV 08/16/16 14:30 08/16/16 14:31 DC 08/16/16 14:15 Morphine Sulfate 4 mg PRN Q2HR PRN IV PAIN 08/16/16 15:00 08/17/16 14:59 08/17/16 00:17 Albuterol/ Ipratropium (Duoneb) 3 ml RTQID NEB 08/16/16 16:00 08/17/16 15:59 08/17/16 08:03 Insulin Aspart (NovoLOG) 0-5 UNITS TIDWMEALS SQ 08/16/16 17:00 08/16/16 17:52 ALLERGIES ALLERGIES: Coded Allergies: aspirin (Verified Allergy, Intermediate, 07/24/13) ROS Review of System 14 point ROS conducted with pertinent positives noted above in HPI. PHYSICAL EXAM General: Alert, Oriented X3, Cooperative, No acute distress HEENT: Atraumatic, Mucous membr. moist/pink Lungs: Clear to auscultation Heart: Regular rate, Normal S1, Normal S2 Abdomen: Soft, No tenderness Extremities: No edema, Normal pulses Skin: No breakdown, No significant lesion Neuro: Normal speech, Sensation intact Psych/Mental Status: Mental status NL, Mood NL MUSCULOSKELETAL: Osteoarthritic changes both hands VITALS VITALS Vital Signs Date Time Temp Pulse Resp B/P (MAP) Pulse Ox O2 Delivery O2 Flow Rate FiO2 08/17/16 08:03 96 Room Air 08/17/16 07:00 98.5 111 18 111/75 (87) 98.5 LABS Lab: Laboratory Tests Test 08/16/16 13:58 08/16/16 19:58 08/16/16 21:02 08/17/16 06:09 White Blood Count 6.6 x10^3/uL (4.0-11.0) 6.1 x10^3/uL (4.0-11.0) Red Blood Count 4.01 x10^6/uL (3.50-5.40) 4.00 x10^6/uL (3.50-5.40) Hemoglobin 11.7 g/dL (12.0-15.5) 11.7 g/dL (12.0-15.5) Hematocrit 34.6 % (36.0-47.0) 34.5 % (36.0-47.0) Mean Corpuscular Volume 86 fL (79-100) 86 fL (79-100) Mean Corpuscular Hemoglobin 29 pg (25-35) 29 pg (25-35) Mean Corpuscular Hemoglobin Concent 34 g/dL (31-37) 34 g/dL (31-37) Red Cell Distribution Width 15.1 % (11.5-14.5) 14.9 % (11.5-14.5) Platelet Count 417 x10^3/uL (140-400) 415 x10^3/uL (140-400) Neutrophils (%) (Auto) 74 % (31-73) 91 % (31-73) Lymphocytes (%) (Auto) 15 % (24-48) 7 % (24-48) Monocytes (%) (Auto) 9 % (0-9) 2 % (0-9) Eosinophils (%) (Auto) 2 % (0-3) 0 % (0-3) Basophils (%) (Auto) 1 % (0-3) 0 % (0-3) Neutrophils # (Auto) 4.9 x10^3uL (1.8-7.7) 5.5 x10^3uL (1.8-7.7) Lymphocytes # (Auto) 1.0 x10^3/uL (1.0-4.8) 0.4 x10^3/uL (1.0-4.8) Monocytes # (Auto) 0.6 x10^3/uL (0.0-1.1) 0.1 x10^3/uL (0.0-1.1) Eosinophils # (Auto) 0.1 x10^3/uL (0.0-0.7) 0.0 x10^3/uL (0.0-0.7) Basophils # (Auto) 0.1 x10^3/uL (0.0-0.2) 0.0 x10^3/uL (0.0-0.2) Sodium Level 137 mmol/L (136-145) 138 mmol/L (136-145) Potassium Level 4.3 mmol/L (3.5-5.1) 4.7 mmol/L (3.5-5.1) Chloride Level 101 mmol/L (98-107) 102 mmol/L (98-107) Carbon Dioxide Level 31 mmol/L (21-32) 28 mmol/L (21-32) Anion Gap 5 (6-14) 8 (6-14) Blood Urea Nitrogen 11 mg/dL (7-20) 16 mg/dL (7-20) Creatinine 0.7 mg/dL (0.6-1.0) 0.5 mg/dL (0.6-1.0) Estimated GFR (Cockcroft-Gault) 85.6 126.3 Glucose Level 102 mg/dL (70-99) 112 mg/dL (70-99) Calcium Level 9.2 mg/dL (8.5-10.1) 9.6 mg/dL (8.5-10.1) Total Bilirubin 0.3 mg/dL (0.2-1.0) Direct Bilirubin 0.1 mg/dL (0.0-0.2) Aspartate Amino Transf (AST/SGOT) 12 U/L (15-37) Alanine Aminotransferase (ALT/SGPT) 12 U/L (14-59) Alkaline Phosphatase 104 U/L (46-116) Troponin I Quantitative < 0.017 ng/mL (0.000-0.055) < 0.017 ng/mL (0.000-0.055) < 0.017 ng/mL (0.000-0.055) BB-Wkp-W-Type Natriuretic Peptide 91 pg/mL (0-124) Total Protein 7.0 g/dL (6.4-8.2) Albumin 3.2 g/dL (3.4-5.0) Lipase 41 U/L (73-393) Glucose (Fingerstick) 140 mg/dL (70-99) Test 08/17/16 07:53 Glucose (Fingerstick) 104 mg/dL (70-99) ASSESSMENT/PLAN ASSESSMENT/PLAN 1. Chest pain, atypical troponin series normal- AMI ruled out. EKG without significant acute changes by comparison to study 10/18. pain now resolved. ASA. check lipids, TSH Given risk factors, will proceed with MPI to r/o ischemia 2. Hypertension controlled resume home antiHTN therapy 3. Hyperlipidemia check lipids 4. Diabetes per PCP Problems: АЛЕКСАНДР OLMEDO APRN August 17, 2016 09:36
[2016-08-17 10:05] LABS: CHOLESTEROL/HDL RATIO 2.7
[2016-08-17] MEDS ORDERED: REGADENOSON 0.4 MG/5 ML DISP.SYRIN. IV ONE (10:15)
[2016-08-17 11:07] VITALS: BP 116/77
--- NOTE | 2016-08-17 14:11 | RAD ---
APPROVED REPORT Test Type: Pharmacological Stress Nurse/Tech: Moriah Arndt R.N. Test Indications: Chest discomfort Cardiac History: HTN Medications: SEE EMR Medical History: SEE EMR Resting ECG: ST with RBBB Resting Heart Rate: 110 bpm Resting Blood Pressure: 128/71mmHg Pretest Chest Pain: None Nurse/Tech Notes S1S2, lungs CTA, denied chest pain or SOA. Consent: The procedure was explained to the patient in lay terms. Informed consent was witnessed. Elie eout was entered into [employer]. History and Stress Test performed by Moriah Arndt R.N. Pharm. Details Pharmacologic stress testing was performed using 0.4mg per 5ml of regadenoson given intravenously ove r 7-10 seconds. Stress Symptoms Slightly SOA. POST EXERCISE Reason for Termination: Infusion complete Max HR: 117 bpm Max Blood Pressure: 126/68mmHg Blood Pressure response to exercise: Normal blood pressure response during stress. Heart Rate response to exercise: Normal Chest Pain: No. Arrhythmia: No. ST Change: No. INTERPRETATION Stress EKG Conclusion: The resting EKG shows a sinus tachycardia with T wave inversion in V1, diffuse nonspecific ST-T wave changes and RVH. The stress EKG shows no significant changes from baseline No EKG evidence of stress-induced ischemia. Imaging Protocol IMAGE PROTOCOL: Rest Tc-99m/stress Tc-99m 1 day Rest: Stress: Viability: Radiopharm.Tc99m VibwqslpdDu99o Sestamibi Dose10.9mCi 32mCi Duration 15min. 10min. Img Date 08/17/2016 08/17/2016 Inj-Img Oega51iqw. 60min. Rest Admin Site:IV - Left AntecubitalAdministrator:JAQUELINE Ross Stress Admin Site: IV - Left AntecubitalAdministrator: CRYSTAL Rojas, ARRT (R)(N) STRESS DATA End Diast. Vol.21.0mlAv. Heart Yyhj711.0bpm End Syst. Vol.2.0mlCO Index BSA0.0L/min Myocardial Mass61.0gEject. Cjsqcqyj84.0% Stress Rates Pk. Fill Rate5.86EDV/secLVtime Pk. Fill 93.38msec Pk. Empty Rate8.76ESV/secLVtime Pk. Eject80.74msec 1/3 Pk. Fill3.39EDV/sec Stress Scores Regional WT0.00Summed WT0.00 Regional WM0.00Summed WM12.00 LV Perfusion The stress scans showed no significant defects. The rest scans showed no significant defects. Nuclear imaging shows no reversible ischemia or infarct. [place] Normal left ventricular systolic function with an ejection fraction of greater than 70%. LV Perf. Quant 17 Seg. SSS0.00 17 Seg. SRS0.00 17 Seg. SDS0.00 Stress Defect Extent (% LAD)0.00Rest Defect Extent (% LAD)0.00Rev. Defect Extent (% LAD)0.00 Stress Defect Extent (% LCX) 0.00Rest Defect Extent (% LCX)0.00Rev. Defect Extent (% LCX)0.00 Stress Defect Extent (% RCA)0.00Rest Defect Extent (% RCA)0.00Rev. Defect Extent (% RCA)0.00 Stress Defect Extent (% MICHELL)0.00Rest Defect Extent (% MICHELL)0.00Rev. Defect Extent (% MICHELL)0.00 Conclusion 1. Abnormal baseline EKG but no EKG evidence of stress-induced ischemia. 2. Nuclear imaging shows no reversible ischemia or infarct. 3. Normal left ventricular systolic function with an ejection fraction of greater than 70%. 4. Low to moderately low risk Lexiscan nuclear stress test.
--- NOTE | 2016-08-17 14:37 | PDOC ---
PROGRESS NOTES Chief Complaint Chief Complaint Chest pain ASSESSMENT AND PLAN: 1. Chest pain: atypical. ruled out for AMS. but with risk factors, plan for MPI 2. Back pain: hx lucien fixation and recent fall. 3. GERD: cont PPI 4. DM: by report only; FSBG repeatedly WNL. stop ISS. check HgbA1c 5. HTN, HLD: cont home meds. lipid profile ok 6. COPD: steroid taper, nebs 7. Prophylaxis: lovenox History of Present Illness History of Present Illness feels much better, no further CP or SOB Vitals Vitals Vital Signs Date Time Temp Pulse Resp B/P (MAP) Pulse Ox O2 Delivery O2 Flow Rate FiO2 08/17/16 11:07 98.1 107 18 116/77 (90) 94 Room Air 98.1 Physical Exam General: Alert, Oriented X3, Cooperative, No acute distress Heart: Regular rate, Normal S1, Normal S2 Lungs: Clear, Crackles Abdomen: Soft, No tenderness Extremities: No edema, Normal pulses Skin: No breakdown, No significant lesion Labs LABS Laboratory Tests Test 08/16/16 19:58 08/16/16 21:02 08/17/16 06:09 08/17/16 07:53 Troponin I Quantitative < 0.017 ng/mL (0.000-0.055) < 0.017 ng/mL (0.000-0.055) Glucose (Fingerstick) 140 mg/dL (70-99) 104 mg/dL (70-99) White Blood Count 6.1 x10^3/uL (4.0-11.0) Red Blood Count 4.00 x10^6/uL (3.50-5.40) Hemoglobin 11.7 g/dL (12.0-15.5) Hematocrit 34.5 % (36.0-47.0) Mean Corpuscular Volume 86 fL (79-100) Mean Corpuscular Hemoglobin 29 pg (25-35) Mean Corpuscular Hemoglobin Concent 34 g/dL (31-37) Red Cell Distribution Width 14.9 % (11.5-14.5) Platelet Count 415 x10^3/uL (140-400) Neutrophils (%) (Auto) 91 % (31-73) Lymphocytes (%) (Auto) 7 % (24-48) Monocytes (%) (Auto) 2 % (0-9) Eosinophils (%) (Auto) 0 % (0-3) Basophils (%) (Auto) 0 % (0-3) Neutrophils # (Auto) 5.5 x10^3uL (1.8-7.7) Lymphocytes # (Auto) 0.4 x10^3/uL (1.0-4.8) Monocytes # (Auto) 0.1 x10^3/uL (0.0-1.1) Eosinophils # (Auto) 0.0 x10^3/uL (0.0-0.7) Basophils # (Auto) 0.0 x10^3/uL (0.0-0.2) Sodium Level 138 mmol/L (136-145) Potassium Level 4.7 mmol/L (3.5-5.1) Chloride Level 102 mmol/L (98-107) Carbon Dioxide Level 28 mmol/L (21-32) Anion Gap 8 (6-14) Blood Urea Nitrogen 16 mg/dL (7-20) Creatinine 0.5 mg/dL (0.6-1.0) Estimated GFR (Cockcroft-Gault) 126.3 Glucose Level 112 mg/dL (70-99) Calcium Level 9.6 mg/dL (8.5-10.1) Triglycerides Level 33 mg/dL (0-150) Cholesterol Level 177 mg/dL (0-200) LDL Cholesterol, Calculated 104 mg/dL (0-100) VLDL Cholesterol, Calculated 7 mg/dL (0-40) Non-HDL Cholesterol Calculated 111 mg/dL (0-129) HDL Cholesterol 66 mg/dL (40-60) Cholesterol/HDL Ratio 2.7 Thyroid Stimulating Hormone (TSH) 0.604 uIU/mL (0.358-3.74) Test 08/17/16 12:00 Glucose (Fingerstick) 85 mg/dL (70-99) OCTAVIO GANT MD August 17, 2016 14:37
[2016-08-17] MEDS ORDERED: HYDROcodone/APAP 5/325MG 1 TAB TABLET PO PRN (14:45)
[2016-08-17 14:53] VITALS: BP 133/66
[2016-08-17] MEDS ORDERED: MONTELUKAST SODIUM 10 MG TABLET. PO SCH (15:00)
[2016-08-17] MEDS ORDERED: predniSONE 1 MG TABLET PO SCH (15:00)
[2016-08-17] MEDS ORDERED: OXYBUTYNIN CHLORIDE 5 MG TABLET PO SCH (15:00)
[2016-08-17] MEDS ORDERED: LOSARTAN POTASSIUM 50 MG TABLET. PO SCH (15:00)
[2016-08-17 15:51] VITALS: BP 133/66
[2016-08-17] MEDS ORDERED: IPRATRPIUM/ALBUTEROL 0.5/2.5MG 3 ML NEBU. NEB SCH (16:00)
[2016-08-17] MEDS ORDERED: BUDESONIDE 0.5 MG/2 ML NEBU. NEB SCH (20:00)
[2016-08-17] MEDS ORDERED: SIMVASTATIN 10 MG TABLET PO SCH (21:00)
[2016-08-17] MEDS ORDERED: NON FORMULARY ITEM (Budesonide/Formoterol Fumarate (Symbicort 160-4.5 Mcg Inhaler) 1 PUFF) IH SCH (21:00)
[2016-08-18] MEDS ORDERED: PANTOPRAZOLE 40 MG TABLET.DR. PO SCH (07:30)
--- NOTE | 2016-08-19 21:12 | DS ---
DATE OF DISCHARGE: 08/17/2016 CHIEF COMPLAINT: Chest pain. HOSPITAL COURSE: The patient is a 60-year-old woman who presented with atypical chest pain. Nevertheless, she was admitted, ruled out for ACS, and with poor risk factors, she actually underwent MPI, which was benign. Pain was attributed to GERD and she was continued on PPI. All other medical issues remained stable and home medications were continued. DISCHARGE EXAMINATION: Please refer to note from same day. DISCHARGE DATE: 08/17/2016. DISCHARGE DISPOSITION: To home. DISCHARGE CONDITION: Improved. DISCHARGE DIAGNOSES: Chest pain, gastroesophageal reflux disease. DISCHARGE MEDICATIONS: Please refer to MAR. DISCHARGE INSTRUCTIONS: The patient will follow up with her primary care physician in 1 week. OCTAVIO GANT MD DR: UR/nts JOB#: [id number] / [id number] JACKIE Dumont MD MTDD
== END 2016-08-17 18:45 | disposition home or self-care (01) | DRG 392 ==
LOC: ER 14:57 → 2 NORTH 14:59
PROVIDERS: ADMIT Internal Medicine; ATTEND Internal Medicine
DX: K21.9 Gastro-esophageal reflux disease without esophagitis (principal); J44.1 Chronic obstructive pulmonary disease with (acute) exacerbation; I11.0 Hypertensive heart disease with heart failure; E11.9 Type 2 diabetes mellitus without complications; E78.5 Hyperlipidemia, unspecified; I25.10 Atherosclerotic heart disease of native coronary artery without angina pectoris; I50.9 Heart failure, unspecified; M19.90 Unspecified osteoarthritis, unspecified site; Z96.641 Presence of right artificial hip joint; M41.9 Scoliosis, unspecified; Z82.49 Family history of ischemic heart disease and other diseases of the circulatory system; Z88.6 Allergy status to analgesic agent; Z90.5 Acquired absence of kidney
CPT/HCPCS: 36415; 71010; 78452; 80048; 80061; 80076; 82962; 83036; 83690; 83880; 84443; 84484; 85027; 93005; 93017; 94250; 94640; 96374; 96375; 96376; A4615; A9500; J1815; J2270; J2785; J2930; J3010; J7620; 99285-25

== ENCOUNTER 2016-11-06 08:50 | Inpatient (IN) | payer OTHER ==
[~2016-11-06] VITALS: Ht 157.5 cm; Wt 57.6 kg
[~2016-11-06 08:50] MED LIST changes: +BUDE10.2 IH; +CHOL500050 PO; +LOSA50TA6 PO; +OXYB5TAB33 PO; +SIMV10TA3 PO
--- NOTE | 2016-11-06 09:55 | RAD ---
Right ankle, 3 views, 11/06/2016: History: Ankle pain, swelling There is moderate diffuse soft tissue swelling about the ankle. No fracture or dislocation is identified. No significant arthritic change is seen. IMPRESSION: No acute bony abnormality is detected.
--- NOTE | 2016-11-06 09:58 | PHYS DOC ---
Past Medical History Past Medical History: Anxiety, Asthma, COPD, Diabetes-Type I, High Cholesterol , Heart Disease, Hypertension Additional Past Medical Histor: SCOLIOSIS Past Surgical History: Hip Replacement Additional Past Surgical Histo: R hip, Upper L kidney removed, 5 back surgeries due to fall Alcohol Use: None Drug Use: None Adult General Chief Complaint Chief Complaint: ANKLE PROBLEM [facility] HPI Patient is a 61 year old female presenting to the emergency department via EMS for evaluation of right ankle pain that started last night and has become more severe and intense. She says that she cannot bear weight on the leg because of severe pain. Patient has swelling to the joint. She denies any history of gout but does have arthritis. Patient is in no obvious distress with normal vital signs. Review of Systems Review of Systems Constitutional: Denies fever or chills [] Eyes: Denies change in visual acuity, redness, or eye pain [] HENT: Denies nasal congestion or sore throat [] Respiratory: Denies cough or shortness of breath [] Cardiovascular: No additional information not addressed in HPI [] GI: Denies abdominal pain, nausea, vomiting, bloody stools or diarrhea [] : Denies dysuria or hematuria [] Musculoskeletal: Positive right ankle pain Integument: Positive redness to ankle Neurologic: Denies headache, focal weakness or sensory changes [] Allergies Allergies Allergies Coded Allergies Type Severity Reaction Last Updated Verified aspirin Allergy Intermediate 07/24/13 Yes Physical Exam Physical Exam Constitutional: Well developed, well nourished, no acute distress, non-toxic appearance. [] HENT: Normocephalic, atraumatic, bilateral external ears normal, oropharynx moist, no oral exudates, nose normal. [] Eyes: PERRLA, EOMI, conjunctiva normal, no discharge. [] Neck: Normal range of motion, no tenderness, supple, no stridor. [] Cardiovascular:Heart rate regular rhythm, no murmur [] Lungs & Thorax: Bilateral breath sounds clear to auscultation [] Abdomen: Bowel sounds normal, soft, no tenderness, no masses, no pulsatile masses. [] Skin: Warm, dry, no erythema, no rash. [] Back: No tenderness, no CVA tenderness. [] Extremities: Right ankle joint diffusely swollen with erythema noted on the lateral malleolus and partially on the anterior portion of the knee as well. Neurologic: Alert and oriented X 3, normal motor function, normal sensory function, no focal deficits noted. [] Current Patient Data Vital Signs Vital Signs Date Time Temp Pulse Resp B/P (MAP) Pulse Ox O2 Delivery O2 Flow Rate FiO2 11/06/16 09:05 97.7 91 15 121/63 (82) 94 Room Air 97.7 EKG EKG [] Radiology/Procedures Radiology/Procedures Right ankle, 3 views, 11/06/2016: History: Ankle pain, swelling There is moderate diffuse soft tissue swelling about the ankle. No fracture or dislocation is identified. No significant arthritic change is seen. IMPRESSION: No acute bony abnormality is detected. DICTATED and SIGNED BY: BREEZY BAKER MD DATE: 11/06/16 0952 Course & Med Decision Making Course & Med Decision Making Patient has severe ankle pain with flexion and extension and she cannot bear weight on it. Patient at least has a cellulitis and I do have some concern for a septic joint. Patient will be admitted for further evaluation and treatment. Dragon Disclaimer Dragon Disclaimer This electronic medical record was generated, in whole or in part, using a voice recognition dictation system. Departure Departure Impression: Primary Impression: Cellulitis Additional Impression: Elevated C-reactive protein (CRP) Disposition: ADMITTED INPATIENT Admitting Physician: Other (REUSCH) Condition: STABLE Referrals: JACKIE REESE MD (PCP) Problem Qualifiers Primary Impression: Cellulitis Site of cellulitis: extremity Site of cellulitis of extremity: lower extremity Laterality: right Qualified Codes: L03.115 - Cellulitis of right lower limb NIYAH JEAN BAPTISTE DO Nov 06, 2016 09:57
[2016-11-06] MEDS ORDERED: ONDANSETRON PF 4 MG/2 ML VIAL. IV PRN (10:00)
[2016-11-06] MEDS ORDERED: fentaNYL PF VIAL 100 MCG/2 ML VIAL IV PRN (10:00)
[2016-11-06 10:17] LABS: BASO # 0.1 x10^3/uL (0.0-0.2); BASO % 1 % (0-3); EOS % 2 % (0-3); HEMATOCRIT 34.4 % (36.0-47.0); HEMOGLOBIN 11.7 g/dL (12.0-15.5); LYMPH # 0.9 x10^3/uL (1.0-4.8); LYMPH % 9 % (24-48); MEAN CORPUSCULAR HEMOGLOBIN 30 pg (25-35); MEAN CORPUSCULAR HGB CONC 34 g/dL (31-37); MEAN CORPUSCULAR VOLUME 88 fL (79-100); MONO % 9 % (0-9); NEUT % 80 % (31-73); PLATELET COUNT 384 x10^3/uL (140-400); RED BLOOD COUNT 3.92 x10^6/uL (3.50-5.40); WHITE BLOOD COUNT 10.3 x10^3/uL (4.0-11.0)
--- NOTE | 2016-11-06 10:20 | ACF ---
Admit Criteria Forms Admit Criteria Forms Admit Criteria Forms CELLULITIS Clinical Indications for Admission to Inpatient Care (Place 'X' for any and all applicable criteria): Admission is indicated for ANY ONE of the following(1)(2)(3)(4)(5): [ ]I. Limb-threatening infection [ ]II. High-risk comorbid condition as indicated by ANY ONE of the following: [ ]a) Uncontrolled diabetes (eg, HbA1c greater than 10% (0.1)) [ ]b) Cirrhosis [ ]c) Neutropenia [ ]d) Asplenia [ ]e) Immunosuppression [ ]f) Symptomatic heart failure [ ]III. Failure of outpatient therapy as indicated by ALL of the following: [ ]a) Progression or no improvement after adequate trial (minimum of 48 hours, with longer period for stable lower extremity infection) [ ]b) Adequate antibiotic regimen as indicated by use of ANY ONE of the following: [ ]i) First-generation cephalosporin (e.g., cephalexin) [ ]ii) Antistaphylococcal penicillin (e.g., dicloxacillin) [ ]iii) Penicillin-allergic patient regimen (clindamycin, extended-spectrum fluoroquinolone, or doxycycline) [ ]iv) Resistant organism (eg, methicillin-resistant Staphylococcus aureus) regimen (6) [ ]c) Outpatient intravenous therapy regimen is not appropriate due to ANY ONE of the following. (7)(8)(9)(10): [ ]i) It was tried and was not successful (eg, progression of infection). [ ]ii) It is not available or cannot be arranged in a clinically appropriate time frame (e.g., the next day). [ ]iii) Clinical presentation (eg, acuity of infection, rapidity of progression, confirmed or suspected bacteremia) is judged to require ALL of the following: [ ]1) Immediate initiation of intravenous therapy ( eg, cannot wait for next day) [ ]2) Intensity of patient monitoring and observation (eg, vital sign measurement, checks for infection progression) that cannot be provided at other than inpatient level of care [ ]IV. Mental status changes [ ]V. Bacteremia [ ]. Hemodynamic instability [ ]VII. Suspected necrotizing soft tissue infection (e.g., gas in tissue)(11)( 12) [ ]VIII. Orbital infection (13)(14) [ ]IX. Associated surgical procedure (e.g., abscess drainage, debridement) not amenable to outpatient, emergency department, or observation care [ ]X. Cutaneous gangrene [ ]XI. High fever (temperature greater than 39.5 degrees C (103.1 degrees F) (oral)) not responsive to outpatient, emergency department, or observation care therapy [X]XIII. Inpatient admission required rather than observation care (Also use Cellulitis: Observation Care as appropriate) because of ANY ONE of the following : [ ]a) Periorbital or perineal infection that is severe or worsening [X]b) Severe pain requiring acute inpatient management [ ]c) IV fluid to replace significant ongoing (e.g., for over 24 hours) losses (greater than 3L/m2 per day) [ ]d) Compartment syndrome monitoring (17) [ ]e) Strict or protective (eg, laminar flow) isolation [ ]f) Urgent debridement or skin grafting [ ]g) Bone or joint debridement [ ]h) Immediate inpatient surgery [ ]i) Other condition, treatment or monitoring requiring inpatient admission Extended stay beyond goal length of stay may be needed for (1)(18): [ ]a) Necrotizing soft tissue infection or fasciitis [ ]b) Gram-negative infection [ ]c) Methicillin-resistant Staphylococcal aureus (MRSA) infection [ ]d) Peripheral venous insufficiency with cellulitis [ ]e) Extensive edema [ ]f) Sepsis or continued Hemodynamic instability [ ]g) Continued high fever or mental status change [ ]h) Bacteremia [ ]i) Active serious comorbid conditions ( eg, heart failure, renal insufficiency) The original [employer] [email or web address] content created by [email or web address] has been revised. The portions of the content which have been revised are identified through the use of italic text or in bold, and [facility] has neither reviewed nor approved the modified material. All other unmodified content is copyright [facility] Please see references footnoted in the original [facility] [employer] edition 2016 JAZMYNE DUMONT Nov 06, 2016 10:20
[2016-11-06 10:23] LABS: CALCIUM 8.5 mg/dL (8.5-10.1); CREATININE 0.8 mg/dL (0.6-1.0); GFR 73.2; POTASSIUM 3.9 mmol/L (3.5-5.1)
[2016-11-06 10:30] LABS: ALBUMIN 3.8 g/dL (3.4-5.0); ALBUMIN/GLOBULIN RATIO 1.1 (1.0-1.7); C-REACTIVE PROTEIN 29.6 mg/L (0-3.3); INR 1.1 (0.8-1.1); PROTHROMBIN TIME PATIENT 13.2 SEC (11.7-14.0); TOTAL BILIRUBIN 0.4 mg/dL (0.2-1.0); TOTAL PROTEIN 7.4 g/dL (6.4-8.2)
[2016-11-06 10:45] VITALS: BP 111/78
[2016-11-06] MEDS ORDERED: LIDOCAINE 1%/EPI 1:100,000 20 ML VIAL. INJ ONE (10:45)
[2016-11-06 11:00] VITALS: BP 113/82
[2016-11-06] MEDS ORDERED: TIZA4TAB PO (11:23)
--- NOTE | 2016-11-06 12:14 | OP ---
DATE OF SURGERY: 11/06/2016 SURGEON: Axel Barnes MD. FOOD HANDLER: None. PREOPERATIVE DIAGNOSIS: Possible septic right ankle arthritis versus gout. POSTOPERATIVE DIAGNOSIS: Possible septic right ankle arthritis versus gout. PROCEDURE PERFORMED: Right ankle aspiration. COMPLICATIONS: None. ESTIMATED BLOOD LOSS: 1 mL. SPECIMENS: none. COMPLICATIONS: none. REASON FOR PROCEDURE: The patient is a very pleasant 61-year-old female whom I have seen in inpatient consultation. For details, please see this note. I had discussion of the risks, benefits and alternatives to this procedure with her and she elected to proceed, I stressed the importance of diagnostic purposes. DESCRIPTION OF PROCEDURE: The patient was greeted in her room. I verified the correct extremity. I localized the soft spot in her anteromedial ankle joint medial to her tibialis anterior tendon and I injected approximately 3 mL of lidocaine with epinephrine into the subcutaneous tissue. I allowed this to set up and then after it had taken effect, I used an 18-gauge needle and 20 mL syringe to perform aspiration. The aspiration yeilded no joint fluid. At the conclusion of this, sterile dressing was applied after the area was cleansed and dried. AXEL BARNES MD DR: MASOUD/jose JOB#: [id number] / [id number] ASHLEY
[2016-11-06] MEDS ORDERED: CYCL5TAB PO (13:30)
[2016-11-06] MEDS ORDERED: HYDR-971 PO (13:30)
[2016-11-06 14:41] VITALS: BP 112/75
[2016-11-06] MEDS ORDERED: ALBUTEROL SULFATE IH PRN (17:15)
[2016-11-06] MEDS: HYDROcodone/APAP 5/325MG 1 TAB TABLET PO PRN ×2 (17:24→20:42)
[2016-11-06] MEDS ORDERED: ALBUTEROL SULFATE 2.5 MG/3 ML NEBU. NEB PRN (17:30)
[2016-11-06] MEDS ORDERED: ONDANSETRON ODT 4 MG TAB.RAPDIS. PO PRN (17:45)
[2016-11-06] MEDS: COLCHICINE 0.6 MG TABLET PO SCH (18:00)
[2016-11-06 19:00] VITALS: BP 121/79
--- NOTE | 2016-11-06 19:10 | HP ---
ADMIT DATE: 11/06/2016 CHIEF COMPLAINT: Right ankle pain and swelling. HISTORY OF PRESENT ILLNESS: The patient is a 61-year-old woman with CAD, diabetes, COPD, who presented to the ER with sudden onset right ankle pain yesterday. She relates that pain started insidiously, but became more severe and intense, now she is unable to bear weight secondary to the pain. She has noted swelling laterally on the ankle as well as redness. She denies any history of gout or osteoarthritis. PAST MEDICAL HISTORY: CAD, hypertension, hyperlipidemia, diabetes mellitus, COPD, scoliosis with a back surgery as a child. PAST SURGICAL HISTORY: He is status post right hip replacement, status post left nephrectomy. FAMILY HISTORY: Positive for heart disease. SOCIAL HISTORY: She is , living with her . Never smoked. Denies any alcohol or drug use. ALLERGIES: ASPIRIN. MEDICATIONS: MAR reconciled with home medications. REVIEW OF SYSTEMS: Positive as per HPI. Rest of organ system review was essentially negative. PHYSICAL EXAMINATION: VITAL SIGNS: From today show a blood pressure of 110/69, heart rate at 94, respiratory rate at 16. She is afebrile. GENERAL: This is a 61-year-old woman, well nourished, alert and oriented, in no acute distress, appearing older than her stated age. HEENT: Shows no scleral icterus. NECK: Supple. LUNGS: Clear to auscultation bilaterally. HEART: Regular rate and rhythm. ABDOMEN: Has positive bowel sounds, soft, nontender. BACK: Shows severe scoliosis. EXTREMITIES: Show right-sided ankle swelling laterally over the malleolus with diffuse erythema, very tender to touch and passive movement. IMAGING STUDIES: Ankle x-ray in the Emergency Room showed no acute bony abnormality; however, moderate diffuse soft tissue swelling especially on lateral aspect of the ankle is noted. LABORATORY DATA: CBC with a WBC of 10.3, hemoglobin 11.7, platelets of 384. Chemistries with a BUN and creatinine of 15 and 0.8. Electrolytes within normal. LFTs within normal. C-reactive protein at 29.6, albumin at 3.8. Uric acid pending. ASSESSMENT AND PLAN: The patient is a 61-year-old woman with an ankle injury, question gout versus septic joint. Dr. Salas from Orthopedic Surgery has been consulted and he will be performing a joint aspiration for microbiology. We will obtain further labs as well. For now, we will treat symptomatically with pain medications, rest, ice to the ankle. The patient has significant heart history and risk factors. No acute issues are currently present. We will continue her home medications, same for asthma/chronic obstructive pulmonary disease. For prophylaxis, she will be started on Lovenox and H2 rebecca. OCTAVIO GANT MD DR: FRANK/nts JOB#: [id number] / [id number] JACKIE Dumont MD MTDD
--- NOTE | 2016-11-06 20:14 | CONS ---
DATE OF CONSULTATION: 11/06/2016 REFERRING PROVIDER: Jennifer Mancuso MD CONSULTING PROVIDER: Axel Barnes MD REASON FOR CONSULTATION: Right lateral ankle pain. CHIEF COMPLAINT: Right lateral ankle pain. HISTORY OF PRESENT ILLNESS: The patient is a very pleasant 61-year-old female who noted the acute onset of atraumatic right lateral ankle pain and mild redness around this area last night. She cannot think of any inciting event. She tells me this feels like arthritis, she has had problems with ankle arthritis on the left side in the past, she tells me. Her ankle does hurt worse with any motion. The pain is lateral, it does radiate up her lateral leg a little. It is better at rest. REVIEW OF SYSTEMS: Twelve point review of systems negative except as per HPI. ALLERGIES: ASPIRIN. MEDICATIONS: Reviewed, please see MRAD. PAST MEDICAL HISTORY: Anxiety, asthma, COPD, diabetes, hypercholesterolemia, coronary artery disease, hypertension, scoliosis. PAST SURGICAL HISTORY: Right total hip, partial left nephrectomy, multiple lumbar surgeries. SOCIAL HISTORY: No alcohol or tobacco or drug use. FAMILY HISTORY: Noncontributory. PHYSICAL EXAMINATION: VITAL SIGNS: Reviewed. GENERAL: The patient is alert and oriented. No acute distress at rest. HEENT: Head normocephalic, atraumatic. Extraocular muscles are intact. CARDIOVASCULAR: Regular rate and rhythm. No edema at her ankles. Dorsalis pedis 1+ and symmetric. EHL and FHL 5/5 bilaterally. LUNGS: Respirations are unlabored with symmetric chest rise. ABDOMEN: Soft, nondistended. EXTREMITIES: Examination of bilateral lower extremities further reveals normal sensation, intact to light touch bilateral lower extremities. She does have about a half palm sized area of faint erythema and edema over her right lateral malleolus. No tenderness anteriorly, medially, or posteriorly at her ankle. No tenderness along the Achilles or peroneals. No tenderness at proximal fibula. She does have pain around her ankle joint anteriorly, laterally, with passive range of motion. She does have decreased active range of motion secondary to pain compared to normal contralateral side. IMAGING: Ankle x-rays interpreted by myself. The report was also reviewed. She does have some faint, irregular soft tissue densities anterior and posterior to her ankle joint proper. No other bony abnormalities. IMPRESSION: Possible gout or septic arthritis, right ankle. PLAN: This does seem to be a little bit more hard in that her pain is localized laterally, but no trauma or anything. This could just be a simple cellulitis, but I think an aspiration of her ankle was probably the most prudent thing to do. Please see separate procedure note for this. AXEL BARNES MD DR: MASOUD/jose JOB#: [id number] / [id number] ASHLEY
[2016-11-06] MEDS: BUDESONIDE 0.5 MG/2 ML NEBU. NEB SCH (20:29)
[2016-11-06] MEDS: IPRATRPIUM/ALBUTEROL 0.5/2.5MG 3 ML NEBU. NEB SCH (20:29)
[2016-11-06] MEDS: OXYBUTYNIN CHLORIDE 5 MG TABLET PO SCH (20:43)
[2016-11-06] MEDS: SIMVASTATIN 10 MG TABLET PO SCH (20:43)
[2016-11-06] MEDS: tiZANidine 4 MG TABLET. PO SCH (20:43)
[2016-11-06] MEDS ORDERED: NON FORMULARY ITEM (Budesonide/Formoterol Fumarate (Symbicort 160-4.5 Mcg Inhaler) 1 PUFF) IH SCH (21:00)
[2016-11-06 23:00] VITALS: BP 96/66
[2016-11-07] MEDS: HYDROcodone/APAP 5/325MG 1 TAB TABLET PO PRN ×2 (02:59→08:16)
[2016-11-07 06:06] LABS: BASO % 0 % (0-3); EOS % 2 % (0-3); HEMATOCRIT 31.6 % (36.0-47.0); HEMOGLOBIN 10.8 g/dL (12.0-15.5); LYMPH % 12 % (24-48); MEAN CORPUSCULAR HEMOGLOBIN 30 pg (25-35); MEAN CORPUSCULAR HGB CONC 34 g/dL (31-37); MEAN CORPUSCULAR VOLUME 87 fL (79-100); MONO % 12 % (0-9); NEUT % 73 % (31-73); PLATELET COUNT 337 x10^3/uL (140-400); RED BLOOD COUNT 3.62 x10^6/uL (3.50-5.40); RED CELL DISTRIBUTION WIDTH 13.9 % (11.5-14.5)
[2016-11-07 06:18] LABS: CALCIUM 8.8 mg/dL (8.5-10.1); CREATININE 0.6 mg/dL (0.6-1.0); POTASSIUM 3.8 mmol/L (3.5-5.1)
[2016-11-07 07:22] VITALS: BP 125/86
[2016-11-07] MEDS: IPRATRPIUM/ALBUTEROL 0.5/2.5MG 3 ML NEBU. NEB SCH ×4 (08:00→19:24)
[2016-11-07] MEDS: OXYBUTYNIN CHLORIDE 5 MG TABLET PO SCH ×2 (08:14→20:12)
[2016-11-07] MEDS: LOSARTAN POTASSIUM 50 MG TABLET. PO SCH (08:14)
[2016-11-07] MEDS: MONTELUKAST SODIUM 10 MG TABLET. PO SCH (08:15)
[2016-11-07] MEDS: COLCHICINE 0.6 MG TABLET PO SCH ×2 (08:15→20:12)
[2016-11-07] MEDS: tiZANidine 4 MG TABLET. PO SCH ×2 (08:16→20:13)
[2016-11-07] MEDS: BUDESONIDE 0.5 MG/2 ML NEBU. NEB SCH ×2 (08:25→19:24)
[2016-11-07] MEDS ORDERED: NON FORMULARY ITEM (Tiotropium Bromide (Spiriva) 18 MCG) IH SCH (09:00)
[2016-11-07] MEDS ORDERED: GLIMEPIRIDE 2 MG TABLET. PO SCH (09:00)
--- NOTE | 2016-11-07 09:10 | PDOC ---
ORTHO PROGRESS NOTES Subjective She tells me her ankle still quite sore. She feels the pain laterally. She has tried bearing weight, but is more painful. Vitals Vital Signs Date Time Temp Pulse Resp B/P (MAP) Pulse Ox O2 Delivery O2 Flow Rate FiO2 11/07/16 08:28 94 Room Air 11/07/16 08:16 99 125/86 11/07/16 07:22 99.1 16 99.1 11/06/16 10:13 Labs Laboratory Tests Test 11/06/16 09:55 11/07/16 05:05 White Blood Count 10.3 x10^3/uL (4.0-11.0) 8.0 x10^3/uL (4.0-11.0) Red Blood Count 3.92 x10^6/uL (3.50-5.40) 3.62 x10^6/uL (3.50-5.40) Hemoglobin 11.7 g/dL (12.0-15.5) 10.8 g/dL (12.0-15.5) Hematocrit 34.4 % (36.0-47.0) 31.6 % (36.0-47.0) Mean Corpuscular Volume 88 fL (79-100) 87 fL (79-100) Mean Corpuscular Hemoglobin 30 pg (25-35) 30 pg (25-35) Mean Corpuscular Hemoglobin Concent 34 g/dL (31-37) 34 g/dL (31-37) Red Cell Distribution Width 14.0 % (11.5-14.5) 13.9 % (11.5-14.5) Platelet Count 384 x10^3/uL (140-400) 337 x10^3/uL (140-400) Neutrophils (%) (Auto) 80 % (31-73) 73 % (31-73) Lymphocytes (%) (Auto) 9 % (24-48) 12 % (24-48) Monocytes (%) (Auto) 9 % (0-9) 12 % (0-9) Eosinophils (%) (Auto) 2 % (0-3) 2 % (0-3) Basophils (%) (Auto) 1 % (0-3) 0 % (0-3) Neutrophils # (Auto) 8.2 x10^3uL (1.8-7.7) 5.9 x10^3uL (1.8-7.7) Lymphocytes # (Auto) 0.9 x10^3/uL (1.0-4.8) 1.0 x10^3/uL (1.0-4.8) Monocytes # (Auto) 0.9 x10^3/uL (0.0-1.1) 1.0 x10^3/uL (0.0-1.1) Eosinophils # (Auto) 0.2 x10^3/uL (0.0-0.7) 0.2 x10^3/uL (0.0-0.7) Basophils # (Auto) 0.1 x10^3/uL (0.0-0.2) 0.0 x10^3/uL (0.0-0.2) Erythrocyte Sedimentation Rate 34 (0-25) Prothrombin Time 13.2 SEC (11.7-14.0) Prothromb Time International Ratio 1.1 (0.8-1.1) Activated Partial Thromboplast Time 34 SEC (24-38) Sodium Level 141 mmol/L (136-145) 140 mmol/L (136-145) Potassium Level 3.9 mmol/L (3.5-5.1) 3.8 mmol/L (3.5-5.1) Chloride Level 104 mmol/L (98-107) 103 mmol/L (98-107) Carbon Dioxide Level 32 mmol/L (21-32) 28 mmol/L (21-32) Anion Gap 5 (6-14) 9 (6-14) Blood Urea Nitrogen 15 mg/dL (7-20) 10 mg/dL (7-20) Creatinine 0.8 mg/dL (0.6-1.0) 0.6 mg/dL (0.6-1.0) Estimated GFR (Cockcroft-Gault) 73.2 102.0 BUN/Creatinine Ratio 19 (6-20) Glucose Level 81 mg/dL (70-99) 89 mg/dL (70-99) Calcium Level 8.5 mg/dL (8.5-10.1) 8.8 mg/dL (8.5-10.1) Total Bilirubin 0.4 mg/dL (0.2-1.0) Aspartate Amino Transf (AST/SGOT) 13 U/L (15-37) Alanine Aminotransferase (ALT/SGPT) 16 U/L (14-59) Alkaline Phosphatase 105 U/L (46-116) C-Reactive Protein, Quantitative 29.6 mg/L (0-3.3) Total Protein 7.4 g/dL (6.4-8.2) Albumin 3.8 g/dL (3.4-5.0) Albumin/Globulin Ratio 1.1 (1.0-1.7) Laboratory Tests Test 11/06/16 09:55 11/07/16 05:05 White Blood Count 10.3 x10^3/uL (4.0-11.0) 8.0 x10^3/uL (4.0-11.0) Red Blood Count 3.92 x10^6/uL (3.50-5.40) 3.62 x10^6/uL (3.50-5.40) Hemoglobin 11.7 g/dL (12.0-15.5) 10.8 g/dL (12.0-15.5) Hematocrit 34.4 % (36.0-47.0) 31.6 % (36.0-47.0) Mean Corpuscular Volume 88 fL (79-100) 87 fL (79-100) Mean Corpuscular Hemoglobin 30 pg (25-35) 30 pg (25-35) Mean Corpuscular Hemoglobin Concent 34 g/dL (31-37) 34 g/dL (31-37) Red Cell Distribution Width 14.0 % (11.5-14.5) 13.9 % (11.5-14.5) Platelet Count 384 x10^3/uL (140-400) 337 x10^3/uL (140-400) Neutrophils (%) (Auto) 80 % (31-73) 73 % (31-73) Lymphocytes (%) (Auto) 9 % (24-48) 12 % (24-48) Monocytes (%) (Auto) 9 % (0-9) 12 % (0-9) Eosinophils (%) (Auto) 2 % (0-3) 2 % (0-3) Basophils (%) (Auto) 1 % (0-3) 0 % (0-3) Neutrophils # (Auto) 8.2 x10^3uL (1.8-7.7) 5.9 x10^3uL (1.8-7.7) Lymphocytes # (Auto) 0.9 x10^3/uL (1.0-4.8) 1.0 x10^3/uL (1.0-4.8) Monocytes # (Auto) 0.9 x10^3/uL (0.0-1.1) 1.0 x10^3/uL (0.0-1.1) Eosinophils # (Auto) 0.2 x10^3/uL (0.0-0.7) 0.2 x10^3/uL (0.0-0.7) Basophils # (Auto) 0.1 x10^3/uL (0.0-0.2) 0.0 x10^3/uL (0.0-0.2) Erythrocyte Sedimentation Rate 34 (0-25) Prothrombin Time 13.2 SEC (11.7-14.0) Prothromb Time International Ratio 1.1 (0.8-1.1) Activated Partial Thromboplast Time 34 SEC (24-38) Sodium Level 141 mmol/L (136-145) 140 mmol/L (136-145) Potassium Level 3.9 mmol/L (3.5-5.1) 3.8 mmol/L (3.5-5.1) Chloride Level 104 mmol/L (98-107) 103 mmol/L (98-107) Carbon Dioxide Level 32 mmol/L (21-32) 28 mmol/L (21-32) Anion Gap 5 (6-14) 9 (6-14) Blood Urea Nitrogen 15 mg/dL (7-20) 10 mg/dL (7-20) Creatinine 0.8 mg/dL (0.6-1.0) 0.6 mg/dL (0.6-1.0) Estimated GFR (Cockcroft-Gault) 73.2 102.0 BUN/Creatinine Ratio 19 (6-20) Glucose Level 81 mg/dL (70-99) 89 mg/dL (70-99) Calcium Level 8.5 mg/dL (8.5-10.1) 8.8 mg/dL (8.5-10.1) Total Bilirubin 0.4 mg/dL (0.2-1.0) Aspartate Amino Transf (AST/SGOT) 13 U/L (15-37) Alanine Aminotransferase (ALT/SGPT) 16 U/L (14-59) Alkaline Phosphatase 105 U/L (46-116) C-Reactive Protein, Quantitative 29.6 mg/L (0-3.3) Total Protein 7.4 g/dL (6.4-8.2) Albumin 3.8 g/dL (3.4-5.0) Albumin/Globulin Ratio 1.1 (1.0-1.7) Notes She is sitting in a chair. Erythema looks improved over her lateral ankle. She still has edema and tenderness laterally at her ankle. No tenderness elsewhere Assessment and Plan I did discuss with her that there does not appear to be any joint involvement with whatever is underlying and causing her pain. We could try a walking boot which I think may help. NICK BARNES II, MD Nov 07, 2016 09:10
[2016-11-07] MEDS ORDERED: DEXTROSE 50% 25 GM / 50ML DISP.SYRIN. IV PRN (10:00)
[2016-11-07] MEDS: oxyCODONE/APAP 5/325 1 TAB TABLET PO PRN ×2 (10:09→20:12)
[2016-11-07] MEDS ORDERED: COLCHICINE 0.6 MG TABLET PO ONE ×3 (10:30→12:00)
[2016-11-07 10:42] VITALS: BP 106/62
[2016-11-07] MEDS ORDERED: IV DEXTROSE 5% 250 ML IV ONE (11:34)
[2016-11-07] MEDS: INSULIN ASPART 300 UNITS/3 ML INSULN.PEN SQ SCH ×2 (11:38→17:00)
[2016-11-07] MEDS: IBUPROFEN 600 MG TABLET. PO SCH ×2 (14:00→19:43)
--- NOTE | 2016-11-07 14:38 | PDOC ---
PROGRESS NOTES Chief Complaint Chief Complaint right ankle pain and swollen, 2/2 gout vs. pesudogout? h/o CAD, hypertension, hyperlipidemia, diabetes mellitus, COPD, scoliosis with a back surgery as a child. plan: fu with ortho, try boot check UA add colchicine x2, then NSAIDS add percocet local treatment ptot dc amyral given low glu, SSI History of Present Illness History of Present Illness cont right ankle pain, not controlled aspiration done by ortho, no fluid drained hypoglycemia Vitals Vitals Vital Signs Date Time Temp Pulse Resp B/P (MAP) Pulse Ox O2 Delivery O2 Flow Rate FiO2 11/07/16 11:49 Room Air 11/07/16 10:42 97.6 98 16 106/62 (77) 95 97.6 11/06/16 10:13 Physical Exam Physical Exam right ankle swollen, no erythema, + tenderness General: Alert, Oriented X3, Cooperative Heart: Regular rate, Normal S1 Lungs: Clear, Crackles Abdomen: Normal bowel sounds, Soft Extremities: No clubbing, No cyanosis Labs LABS Laboratory Tests Test 11/07/16 05:05 11/07/16 11:27 11/07/16 13:31 White Blood Count 8.0 x10^3/uL (4.0-11.0) Red Blood Count 3.62 x10^6/uL (3.50-5.40) Hemoglobin 10.8 g/dL (12.0-15.5) Hematocrit 31.6 % (36.0-47.0) Mean Corpuscular Volume 87 fL (79-100) Mean Corpuscular Hemoglobin 30 pg (25-35) Mean Corpuscular Hemoglobin Concent 34 g/dL (31-37) Red Cell Distribution Width 13.9 % (11.5-14.5) Platelet Count 337 x10^3/uL (140-400) Neutrophils (%) (Auto) 73 % (31-73) Lymphocytes (%) (Auto) 12 % (24-48) Monocytes (%) (Auto) 12 % (0-9) Eosinophils (%) (Auto) 2 % (0-3) Basophils (%) (Auto) 0 % (0-3) Neutrophils # (Auto) 5.9 x10^3uL (1.8-7.7) Lymphocytes # (Auto) 1.0 x10^3/uL (1.0-4.8) Monocytes # (Auto) 1.0 x10^3/uL (0.0-1.1) Eosinophils # (Auto) 0.2 x10^3/uL (0.0-0.7) Basophils # (Auto) 0.0 x10^3/uL (0.0-0.2) Sodium Level 140 mmol/L (136-145) Potassium Level 3.8 mmol/L (3.5-5.1) Chloride Level 103 mmol/L (98-107) Carbon Dioxide Level 28 mmol/L (21-32) Anion Gap 9 (6-14) Blood Urea Nitrogen 10 mg/dL (7-20) Creatinine 0.6 mg/dL (0.6-1.0) Estimated GFR (Cockcroft-Gault) 102.0 Glucose Level 89 mg/dL (70-99) Calcium Level 8.8 mg/dL (8.5-10.1) Glucose (Fingerstick) 49 mg/dL (70-99) 92 mg/dL (70-99) Review of Systems Review of Systems no fever, chills, sob or chest pain Assessment and Plan Assessmemt and Plan Problems Medical Problems: (1) Elevated C-reactive protein (CRP) Status: Acute Problems: Comment Review of Relevant I have reviewed the following items jose angel (where applicable) has been applied. Labs Laboratory Tests Test 11/06/16 09:55 11/07/16 05:05 11/07/16 11:27 11/07/16 13:31 White Blood Count 10.3 x10^3/uL (4.0-11.0) 8.0 x10^3/uL (4.0-11.0) Red Blood Count 3.92 x10^6/uL (3.50-5.40) 3.62 x10^6/uL (3.50-5.40) Hemoglobin 11.7 g/dL (12.0-15.5) 10.8 g/dL (12.0-15.5) Hematocrit 34.4 % (36.0-47.0) 31.6 % (36.0-47.0) Mean Corpuscular Volume 88 fL (79-100) 87 fL (79-100) Mean Corpuscular Hemoglobin 30 pg (25-35) 30 pg (25-35) Mean Corpuscular Hemoglobin Concent 34 g/dL (31-37) 34 g/dL (31-37) Red Cell Distribution Width 14.0 % (11.5-14.5) 13.9 % (11.5-14.5) Platelet Count 384 x10^3/uL (140-400) 337 x10^3/uL (140-400) Neutrophils (%) (Auto) 80 % (31-73) 73 % (31-73) Lymphocytes (%) (Auto) 9 % (24-48) 12 % (24-48) Monocytes (%) (Auto) 9 % (0-9) 12 % (0-9) Eosinophils (%) (Auto) 2 % (0-3) 2 % (0-3) Basophils (%) (Auto) 1 % (0-3) 0 % (0-3) Neutrophils # (Auto) 8.2 x10^3uL (1.8-7.7) 5.9 x10^3uL (1.8-7.7) Lymphocytes # (Auto) 0.9 x10^3/uL (1.0-4.8) 1.0 x10^3/uL (1.0-4.8) Monocytes # (Auto) 0.9 x10^3/uL (0.0-1.1) 1.0 x10^3/uL (0.0-1.1) Eosinophils # (Auto) 0.2 x10^3/uL (0.0-0.7) 0.2 x10^3/uL (0.0-0.7) Basophils # (Auto) 0.1 x10^3/uL (0.0-0.2) 0.0 x10^3/uL (0.0-0.2) Erythrocyte Sedimentation Rate 34 (0-25) Prothrombin Time 13.2 SEC (11.7-14.0) Prothromb Time International Ratio 1.1 (0.8-1.1) Activated Partial Thromboplast Time 34 SEC (24-38) Sodium Level 141 mmol/L (136-145) 140 mmol/L (136-145) Potassium Level 3.9 mmol/L (3.5-5.1) 3.8 mmol/L (3.5-5.1) Chloride Level 104 mmol/L (98-107) 103 mmol/L (98-107) Carbon Dioxide Level 32 mmol/L (21-32) 28 mmol/L (21-32) Anion Gap 5 (6-14) 9 (6-14) Blood Urea Nitrogen 15 mg/dL (7-20) 10 mg/dL (7-20) Creatinine 0.8 mg/dL (0.6-1.0) 0.6 mg/dL (0.6-1.0) Estimated GFR (Cockcroft-Gault) 73.2 102.0 BUN/Creatinine Ratio 19 (6-20) Glucose Level 81 mg/dL (70-99) 89 mg/dL (70-99) Calcium Level 8.5 mg/dL (8.5-10.1) 8.8 mg/dL (8.5-10.1) Total Bilirubin 0.4 mg/dL (0.2-1.0) Aspartate Amino Transf (AST/SGOT) 13 U/L (15-37) Alanine Aminotransferase (ALT/SGPT) 16 U/L (14-59) Alkaline Phosphatase 105 U/L (46-116) C-Reactive Protein, Quantitative 29.6 mg/L (0-3.3) Total Protein 7.4 g/dL (6.4-8.2) Albumin 3.8 g/dL (3.4-5.0) Albumin/Globulin Ratio 1.1 (1.0-1.7) Glucose (Fingerstick) 49 mg/dL (70-99) 92 mg/dL (70-99) Laboratory Tests Test 11/07/16 05:05 11/07/16 11:27 11/07/16 13:31 White Blood Count 8.0 x10^3/uL (4.0-11.0) Red Blood Count 3.62 x10^6/uL (3.50-5.40) Hemoglobin 10.8 g/dL (12.0-15.5) Hematocrit 31.6 % (36.0-47.0) Mean Corpuscular Volume 87 fL (79-100) Mean Corpuscular Hemoglobin 30 pg (25-35) Mean Corpuscular Hemoglobin Concent 34 g/dL (31-37) Red Cell Distribution Width 13.9 % (11.5-14.5) Platelet Count 337 x10^3/uL (140-400) Neutrophils (%) (Auto) 73 % (31-73) Lymphocytes (%) (Auto) 12 % (24-48) Monocytes (%) (Auto) 12 % (0-9) Eosinophils (%) (Auto) 2 % (0-3) Basophils (%) (Auto) 0 % (0-3) Neutrophils # (Auto) 5.9 x10^3uL (1.8-7.7) Lymphocytes # (Auto) 1.0 x10^3/uL (1.0-4.8) Monocytes # (Auto) 1.0 x10^3/uL (0.0-1.1) Eosinophils # (Auto) 0.2 x10^3/uL (0.0-0.7) Basophils # (Auto) 0.0 x10^3/uL (0.0-0.2) Sodium Level 140 mmol/L (136-145) Potassium Level 3.8 mmol/L (3.5-5.1) Chloride Level 103 mmol/L (98-107) Carbon Dioxide Level 28 mmol/L (21-32) Anion Gap 9 (6-14) Blood Urea Nitrogen 10 mg/dL (7-20) Creatinine 0.6 mg/dL (0.6-1.0) Estimated GFR (Cockcroft-Gault) 102.0 Glucose Level 89 mg/dL (70-99) Calcium Level 8.8 mg/dL (8.5-10.1) Glucose (Fingerstick) 49 mg/dL (70-99) 92 mg/dL (70-99) Microbiology 11/06/16 Blood Culture - Preliminary, Resulted NO GROWTH AFTER 1 DAY Medications Current Medications Ondansetron HCl (Zofran) 4 mg PRN Q8HRS PRN IV NAUSEA/VOMITING; Start 11/06/16 at 10:00; Stop 11/07/16 at 09:59; Status DC Fentanyl Citrate (Fentanyl 2ml Vial) 50 mcg PRN Q2HR PRN IV PAIN Last administered on 11/06/16t 13:10; Start 11/06/16 at 10:00; Stop 11/06/16 at 17:20; Status DC Lidocaine/ Epinephrine (Xylocaine 1%-Epi 1:100,000) 20 ml 1X ONCE INJ Last administered on 11/06/16 11:30; Start 11/06/16 at 10:45; Stop 11/06/16 at 10:48; Status DC Diltiazem HCl (Cardizem 24hr Cd) 120 mg DAILY PO Last administered on 11/07/16 08:16; Start 11/07/16 at 09:00 Guaifenesin (Mucinex) 600 mg BID PO Last administered on 11/07/16 08:15; Start 11/06/16 at 21:00 Acetaminophen/ Hydrocodone Bitart (Lortab 5/325) 1 tab PRN Q6HRS PRN PO PAIN Last administered on 11/07/16 08:16; Start 11/06/16 at 17:15 Losartan Potassium (Cozaar) 50 mg DAILY PO Last administered on 11/07/16 08:14 ; Start 11/07/16 at 09:00 Montelukast Sodium (Singulair) 10 mg DAILY PO Last administered on 11/07/16 08: 15; Start 11/07/16 at 09:00 Simvastatin (Zocor) 10 mg HS PO Last administered on 11/06/16 20:43; Start 11/06 at 21:00 Tizanidine HCl (Zanaflex) 4 mg BID PO Last administered on 11/07/16 08:16; Start 11/06/16 at 21:00 Non-Formulary Medication 17 gm Q4HRS W/A PRN IH COUGH; Start 11/06/16 at 17:15; Stop 11/06/16 at 17:26; Status DC Non-Formulary Medication 1 puff BID IH ; Start 11/06/16 at 21:00; Stop 11/06/16 at 21:00; Status DC Ergocalciferol (Vitamin D2) 50,000 unit Mo PO ; Start 11/16/16 at 09:00 Glimepiride (Amaryl) 1 mg DAILY PO Last administered on 11/07/16 08:15; Start 11/07/16 at 09:00 Ondansetron HCl (Zofran Odt) 4 mg PRN Q8HRS PRN PO NAUSEA; Start 11/06/16 at 17: 45 Oxybutynin Chloride (Ditropan) 2.5 mg BID PO Last administered on 11/07/16 08: 14; Start 11/06/16 at 21:00 Non-Formulary Medication 18 mcg DAILY IH ; Start 11/07/16 at 09:00; Stop 11/07/16 at 09:00; Status DC Colchicine (Colcrys) 0.6 mg BID PO Last administered on 11/07/16 08:15; Start 11/06/16 at 18:00; Stop 11/09/16 at 17:59 Albuterol/ Ipratropium (Duoneb) 3 ml RTQID NEB Last administered on 11/07/16 11 :49; Start 11/06/16 at 20:00 Albuterol Sulfate (Ventolin Neb Soln) 2.5 mg PRN Q4HRS PRN NEB SHORTNESS OF BREATH Last administered on 11/07/16 08:25; Start 11/06/16 at 17:30 Budesonide (Pulmicort) 0.5 mg RTBID NEB Last administered on 11/07/16 08:25; Start 11/06/16 at 20:00 Oxycodone/ Acetaminophen (Percocet 5/325) 1 tab PRN Q4HRS PRN PO PAIN Last administered on 11/07/16 10:09; Start 11/07/16 at 10:00 Ibuprofen (Motrin) 600 mg TID PO ; Start 11/07/16 at 14:00 Insulin Aspart (NovoLOG) 0-9 UNITS TIDWMEALS SQ ; Start 11/07/16 at 12:00 Dextrose (Dextrose 50%-Water Syringe) 12.5 gm PRN Q15MIN PRN IV SEE COMMENTS Last administered on 11/07/16 11:43; Start 11/07/16 at 10:00 Colchicine (Colcrys) 1.2 mg 1X ONCE PO ; Start 11/07/16 at 10:30; Stop 11/07/16 at 10:31; Status Cancel Colchicine (Colcrys) 0.6 mg 1X ONCE PO Last administered on 11/07/16 14:05; Start 11/07/16 at 12:00; Stop 11/07/16 at 12:01; Status DC Colchicine (Colcrys) 1.2 mg 1X ONCE PO Last administered on 11/07/16 11:38; Start 11/07/16 at 10:30; Stop 11/07/16 at 10:31; Status DC Dextrose 250 ml @ As Directed STK-MED ONCE IV ; Start 11/07/16 at 11:34; Stop at 11:35; Status DC Active Scripts Active Zofran (Ondansetron Hcl) 4 Mg Tablet 1 Tab PO Q8HRS PRN Reported [place] 5-325 Tablet (Acetaminophen/Hydrocodone Bitart) 1 Each Tablet 1 Tab PO PRN Q6HRS PRN Cyclobenzaprine Hcl 5 Mg Tablet 1 Tab PO PRN Q6HRS PRN Tizanidine Hcl 4 Mg Tablet 1 Tab PO BID Mucinex (Guaifenesin) 600 Mg Tablet.er 1 Tab PO BID Glimepiride 1 Mg Tablet 1 Mg PO DAILY Symbicort 160-4.5 Mcg Inhaler (Budesonide/Formoterol Fumarate) 10.2 Gm Hfa.aer.ad 1 Puff IH BID Vitamin D (Cholecalciferol (Vitamin D3)) 50,000 Unit Capsule 50,000 Unit PO WEEKLY Ditropan Xl (Oxybutynin Chloride) 5 Mg Tab.er.24 5 Mg PO DAILY Losartan Potassium 50 Mg Tablet 50 Mg PO DAILY Simvastatin 10 Mg Tablet 10 Mg PO HS Proair Hfa Inhaler (Albuterol Sulfate) 8.5 Gm Hfa.aer.ad 17 Gm IH Q4HRS W/A PRN Spiriva (Tiotropium [place]) 18 Mcg Cap.w.dev 18 Mcg IH DAILY Protonix (Pantoprazole Sodium) 40 Mg Granpkt.dr 40 Mg PO DAILY Singulair Tablet (Montelukast Sodium) 10 Mg Tablet 10 Mg PO DAILY Diltiazem 24HR Cd (Diltiazem Hcl) 120 Mg Cap.er.24h 120 Mg PO DAILY Vitals/I & O Vital Sign - Last 24 Hours 11/06/16 11/06/16 11/06/16 11/06/16 14:41 17:24 19:00 20:00 Temp 98.4 98.2 98.4 98.2 Pulse 95 100 Resp 17 20 B/P (MAP) 112/75 (87) 121/79 (93) Pulse Ox 93 95 O2 Delivery Room Air Room Air Room Air 11/06/16 11/06/16 11/06/16 11/07/16 20:31 20:42 23:00 02:59 Temp 98.5 98.5 Pulse 103 Resp 20 16 20 B/P (MAP) 96/66 (76) Pulse Ox 99 93 O2 Delivery Room Air Room Air Room Air 11/07/16 11/07/16 11/07/16 11/07/16 05:09 07:22 08:14 08:16 Temp 99.1 99.1 Pulse 99 99 99 Resp 20 16 B/P (MAP) 125/86 (99) 125/86 125/86 Pulse Ox 91 O2 Delivery Room Air Room Air 11/07/16 11/07/16 11/07/16 11/07/16 08:16 08:28 10:09 10:42 Temp 97.6 97.6 Pulse 98 Resp 16 B/P (MAP) 106/62 (77) Pulse Ox 94 95 O2 Delivery Room Air Room Air Room Air Room Air 11/07/16 11:49 O2 Delivery Room Air Intake and Output 11/06/16 11/06/16 11/07/16 15:00 23:00 07:00 Intake Total 200 ml Output Total 450 ml Balance 200 ml -450 ml CLAUDETTE QUIGLEY MD Nov 07, 2016 14:38
[2016-11-07] MEDS ORDERED: ACETAMINOPHEN 325 MG TABLET. PO PRN (14:45)
[2016-11-07] MEDS ORDERED: ONDANSETRON PF 4 MG/2 ML VIAL. IV PRN (14:45)
[2016-11-07] MEDS ORDERED: DOCUSATE SODIUM 100 MG CAPSULE. PO PRN (14:45)
[2016-11-07] MEDS ORDERED: traMADol 50 MG TABLET PO PRN (14:45)
[2016-11-07] MEDS ORDERED: MORPHINE SULFATE 2 MG/ML DISP.SYRIN. IV PRN (14:45)
[2016-11-07] MEDS ORDERED: hydrALAZINE 20 MG/ML VIAL. IVP PRN (14:45)
[2016-11-07 14:48] VITALS: BP 104/70
[2016-11-07 19:00] VITALS: BP 112/71
[2016-11-07] MEDS: SIMVASTATIN 10 MG TABLET PO SCH (20:13)
[2016-11-07 23:00] VITALS: BP 109/63
[2016-11-08] MEDS: oxyCODONE/APAP 5/325 1 TAB TABLET PO PRN ×4 (02:26→20:46)
[2016-11-08 06:11] LABS: BASO % 1 % (0-3); EOS % 4 % (0-3); HEMOGLOBIN 10.4 g/dL (12.0-15.5); LYMPH % 15 % (24-48); MEAN CORPUSCULAR HEMOGLOBIN 29 pg (25-35); MEAN CORPUSCULAR HGB CONC 33 g/dL (31-37); MEAN CORPUSCULAR VOLUME 90 fL (79-100); MONO % 14 % (0-9); NEUT % 67 % (31-73); PLATELET COUNT 310 x10^3/uL (140-400); RED BLOOD COUNT 3.55 x10^6/uL (3.50-5.40); RED CELL DISTRIBUTION WIDTH 14.1 % (11.5-14.5); WHITE BLOOD COUNT 6.6 x10^3/uL (4.0-11.0)
[2016-11-08 06:26] LABS: CALCIUM 8.9 mg/dL (8.5-10.1); CREATININE 0.8 mg/dL (0.6-1.0); GFR 73.2; POTASSIUM 4.7 mmol/L (3.5-5.1)
[2016-11-08 07:00] VITALS: BP 103/70
[2016-11-08] MEDS: IPRATRPIUM/ALBUTEROL 0.5/2.5MG 3 ML NEBU. NEB SCH ×4 (07:44→19:55)
[2016-11-08] MEDS: BUDESONIDE 0.5 MG/2 ML NEBU. NEB SCH ×2 (07:44→19:55)
[2016-11-08] MEDS: INSULIN ASPART 300 UNITS/3 ML INSULN.PEN SQ SCH ×3 (08:00→16:23)
[2016-11-08] MEDS: COLCHICINE 0.6 MG TABLET PO SCH ×2 (08:37→20:46)
[2016-11-08] MEDS: MONTELUKAST SODIUM 10 MG TABLET. PO SCH (08:38)
[2016-11-08] MEDS: OXYBUTYNIN CHLORIDE 5 MG TABLET PO SCH ×2 (08:38→20:46)
[2016-11-08] MEDS: IBUPROFEN 600 MG TABLET. PO SCH ×3 (08:38→19:35)
[2016-11-08] MEDS: tiZANidine 4 MG TABLET. PO SCH ×2 (08:38→20:46)
[2016-11-08] MEDS: LOSARTAN POTASSIUM 50 MG TABLET. PO SCH (08:38)
[2016-11-08 11:00] VITALS: BP 97/65
--- NOTE | 2016-11-08 11:57 | PDOC ---
PROGRESS NOTES Chief Complaint Chief Complaint right ankle pain and swollen, 2/2 gout vs. pesudogout? h/o CAD, hypertension, hyperlipidemia, diabetes mellitus, COPD, scoliosis with a back surgery as a child. plan: fu with ortho, try boot check UA normal add colchicine x2, then NSAIDS, encourage pt takes with food add percocet local treatment ptot dc amyral given low glu, SSI hope dc tmr History of Present Illness History of Present Illness cont right ankle pain, not controlled aspiration done by ortho, no fluid drained hypoglycemia pt refused NSAIDS Vitals Vitals Vital Signs Date Time Temp Pulse Resp B/P (MAP) Pulse Ox O2 Delivery O2 Flow Rate FiO2 11/08/16 11:00 97.9 91 18 97/65 (76) 91 Room Air 97.9 Physical Exam Physical Exam right ankle swollen, no erythema, + tenderness General: Alert, Oriented X3, Cooperative Heart: Regular rate, Normal S1 Lungs: Clear, Crackles Abdomen: Normal bowel sounds, Soft Extremities: No clubbing, No cyanosis Labs LABS Laboratory Tests Test 11/07/16 13:31 11/07/16 16:34 11/07/16 21:04 11/08/16 05:45 Glucose (Fingerstick) 92 mg/dL (70-99) 95 mg/dL (70-99) 122 mg/dL (70-99) White Blood Count 6.6 x10^3/uL (4.0-11.0) Red Blood Count 3.55 x10^6/uL (3.50-5.40) Hemoglobin 10.4 g/dL (12.0-15.5) Hematocrit 32.0 % (36.0-47.0) Mean Corpuscular Volume 90 fL (79-100) Mean Corpuscular Hemoglobin 29 pg (25-35) Mean Corpuscular Hemoglobin Concent 33 g/dL (31-37) Red Cell Distribution Width 14.1 % (11.5-14.5) Platelet Count 310 x10^3/uL (140-400) Neutrophils (%) (Auto) 67 % (31-73) Lymphocytes (%) (Auto) 15 % (24-48) Monocytes (%) (Auto) 14 % (0-9) Eosinophils (%) (Auto) 4 % (0-3) Basophils (%) (Auto) 1 % (0-3) Neutrophils # (Auto) 4.4 x10^3uL (1.8-7.7) Lymphocytes # (Auto) 1.0 x10^3/uL (1.0-4.8) Monocytes # (Auto) 0.9 x10^3/uL (0.0-1.1) Eosinophils # (Auto) 0.2 x10^3/uL (0.0-0.7) Basophils # (Auto) 0.0 x10^3/uL (0.0-0.2) Sodium Level 141 mmol/L (136-145) Potassium Level 4.7 mmol/L (3.5-5.1) Chloride Level 104 mmol/L (98-107) Carbon Dioxide Level 31 mmol/L (21-32) Anion Gap 6 (6-14) Blood Urea Nitrogen 13 mg/dL (7-20) Creatinine 0.8 mg/dL (0.6-1.0) Estimated GFR (Cockcroft-Gault) 73.2 Glucose Level 92 mg/dL (70-99) Calcium Level 8.9 mg/dL (8.5-10.1) Test 11/08/16 07:19 11/08/16 11:06 Glucose (Fingerstick) 85 mg/dL (70-99) 109 mg/dL (70-99) Review of Systems Review of Systems no fever, chills, sob or chest pain Assessment and Plan Assessmemt and Plan Problems Medical Problems: (1) Elevated C-reactive protein (CRP) Status: Acute Problems: Comment Review of Relevant I have reviewed the following items jose angel (where applicable) has been applied. Labs Laboratory Tests Test 11/07/16 05:05 11/07/16 11:27 11/07/16 13:31 11/07/16 16:34 White Blood Count 8.0 x10^3/uL (4.0-11.0) Red Blood Count 3.62 x10^6/uL (3.50-5.40) Hemoglobin 10.8 g/dL (12.0-15.5) Hematocrit 31.6 % (36.0-47.0) Mean Corpuscular Volume 87 fL (79-100) Mean Corpuscular Hemoglobin 30 pg (25-35) Mean Corpuscular Hemoglobin Concent 34 g/dL (31-37) Red Cell Distribution Width 13.9 % (11.5-14.5) Platelet Count 337 x10^3/uL (140-400) Neutrophils (%) (Auto) 73 % (31-73) Lymphocytes (%) (Auto) 12 % (24-48) Monocytes (%) (Auto) 12 % (0-9) Eosinophils (%) (Auto) 2 % (0-3) Basophils (%) (Auto) 0 % (0-3) Neutrophils # (Auto) 5.9 x10^3uL (1.8-7.7) Lymphocytes # (Auto) 1.0 x10^3/uL (1.0-4.8) Monocytes # (Auto) 1.0 x10^3/uL (0.0-1.1) Eosinophils # (Auto) 0.2 x10^3/uL (0.0-0.7) Basophils # (Auto) 0.0 x10^3/uL (0.0-0.2) Sodium Level 140 mmol/L (136-145) Potassium Level 3.8 mmol/L (3.5-5.1) Chloride Level 103 mmol/L (98-107) Carbon Dioxide Level 28 mmol/L (21-32) Anion Gap 9 (6-14) Blood Urea Nitrogen 10 mg/dL (7-20) Creatinine 0.6 mg/dL (0.6-1.0) Estimated GFR (Cockcroft-Gault) 102.0 Glucose Level 89 mg/dL (70-99) Uric Acid 3.9 mg/dL (2.6-6.0) Calcium Level 8.8 mg/dL (8.5-10.1) Glucose (Fingerstick) 49 mg/dL (70-99) 92 mg/dL (70-99) 95 mg/dL (70-99) Test 11/07/16 21:04 11/08/16 05:45 11/08/16 07:19 11/08/16 11:06 Glucose (Fingerstick) 122 mg/dL (70-99) 85 mg/dL (70-99) 109 mg/dL (70-99) White Blood Count 6.6 x10^3/uL (4.0-11.0) Red Blood Count 3.55 x10^6/uL (3.50-5.40) Hemoglobin 10.4 g/dL (12.0-15.5) Hematocrit 32.0 % (36.0-47.0) Mean Corpuscular Volume 90 fL (79-100) Mean Corpuscular Hemoglobin 29 pg (25-35) Mean Corpuscular Hemoglobin Concent 33 g/dL (31-37) Red Cell Distribution Width 14.1 % (11.5-14.5) Platelet Count 310 x10^3/uL (140-400) Neutrophils (%) (Auto) 67 % (31-73) Lymphocytes (%) (Auto) 15 % (24-48) Monocytes (%) (Auto) 14 % (0-9) Eosinophils (%) (Auto) 4 % (0-3) Basophils (%) (Auto) 1 % (0-3) Neutrophils # (Auto) 4.4 x10^3uL (1.8-7.7) Lymphocytes # (Auto) 1.0 x10^3/uL (1.0-4.8) Monocytes # (Auto) 0.9 x10^3/uL (0.0-1.1) Eosinophils # (Auto) 0.2 x10^3/uL (0.0-0.7) Basophils # (Auto) 0.0 x10^3/uL (0.0-0.2) Sodium Level 141 mmol/L (136-145) Potassium Level 4.7 mmol/L (3.5-5.1) Chloride Level 104 mmol/L (98-107) Carbon Dioxide Level 31 mmol/L (21-32) Anion Gap 6 (6-14) Blood Urea Nitrogen 13 mg/dL (7-20) Creatinine 0.8 mg/dL (0.6-1.0) Estimated GFR (Cockcroft-Gault) 73.2 Glucose Level 92 mg/dL (70-99) Calcium Level 8.9 mg/dL (8.5-10.1) Laboratory Tests Test 11/07/16 13:31 11/07/16 16:34 11/07/16 21:04 11/08/16 05:45 Glucose (Fingerstick) 92 mg/dL (70-99) 95 mg/dL (70-99) 122 mg/dL (70-99) White Blood Count 6.6 x10^3/uL (4.0-11.0) Red Blood Count 3.55 x10^6/uL (3.50-5.40) Hemoglobin 10.4 g/dL (12.0-15.5) Hematocrit 32.0 % (36.0-47.0) Mean Corpuscular Volume 90 fL (79-100) Mean Corpuscular Hemoglobin 29 pg (25-35) Mean Corpuscular Hemoglobin Concent 33 g/dL (31-37) Red Cell Distribution Width 14.1 % (11.5-14.5) Platelet Count 310 x10^3/uL (140-400) Neutrophils (%) (Auto) 67 % (31-73) Lymphocytes (%) (Auto) 15 % (24-48) Monocytes (%) (Auto) 14 % (0-9) Eosinophils (%) (Auto) 4 % (0-3) Basophils (%) (Auto) 1 % (0-3) Neutrophils # (Auto) 4.4 x10^3uL (1.8-7.7) Lymphocytes # (Auto) 1.0 x10^3/uL (1.0-4.8) Monocytes # (Auto) 0.9 x10^3/uL (0.0-1.1) Eosinophils # (Auto) 0.2 x10^3/uL (0.0-0.7) Basophils # (Auto) 0.0 x10^3/uL (0.0-0.2) Sodium Level 141 mmol/L (136-145) Potassium Level 4.7 mmol/L (3.5-5.1) Chloride Level 104 mmol/L (98-107) Carbon Dioxide Level 31 mmol/L (21-32) Anion Gap 6 (6-14) Blood Urea Nitrogen 13 mg/dL (7-20) Creatinine 0.8 mg/dL (0.6-1.0) Estimated GFR (Cockcroft-Gault) 73.2 Glucose Level 92 mg/dL (70-99) Calcium Level 8.9 mg/dL (8.5-10.1) Test 11/08/16 07:19 11/08/16 11:06 Glucose (Fingerstick) 85 mg/dL (70-99) 109 mg/dL (70-99) Microbiology 11/06/16 Blood Culture - Preliminary, Resulted NO GROWTH AFTER 2 DAYS Medications Current Medications Ondansetron HCl (Zofran) 4 mg PRN Q8HRS PRN IV NAUSEA/VOMITING; Start 11/06/16 at 10:00; Stop 11/07/16 at 09:59; Status DC Fentanyl Citrate (Fentanyl 2ml Vial) 50 mcg PRN Q2HR PRN IV PAIN Last administered on 11/06/16 13:10; Start 11/06/16 at 10:00; Stop 11/06/16 at 17:20; Status DC Lidocaine/ Epinephrine (Xylocaine 1%-Epi 1:100,000) 20 ml 1X ONCE INJ Last administered on 11/06/16 11:30; Start 11/06/16 at 10:45; Stop 11/06/16 at 10:48; Status DC Diltiazem HCl (Cardizem 24hr Cd) 120 mg DAILY PO Last administered on 11/08/16 08:38; Start 11/07/16 at 09:00 Guaifenesin (Mucinex) 600 mg BID PO Last administered on 11/08/16 08:38; Start 11/06/16 at 21:00 Acetaminophen/ Hydrocodone Bitart (Lortab 5/325) 1 tab PRN Q6HRS PRN PO PAIN Last administered on 11/07/16 08:16; Start 11/06/16 at 17:15 Losartan Potassium (Cozaar) 50 mg DAILY PO Last administered on 11/07/16 08:14 ; Start 11/07/16 at 09:00 Montelukast Sodium (Singulair) 10 mg DAILY PO Last administered on 11/08/16 08: 38; Start 11/07/16 at 09:00 Simvastatin (Zocor) 10 mg HS PO Last administered on 11/07/16 20:13; Start 11/06 at 21:00 Tizanidine HCl (Zanaflex) 4 mg BID PO Last administered on 11/08/16 08:38; Start 11/06/16 at 21:00 Non-Formulary Medication 17 gm Q4HRS W/A PRN IH COUGH; Start 11/06/16 at 17:15; Stop 11/06/16 at 17:26; Status DC Non-Formulary Medication 1 puff BID IH ; Start 11/06/16 at 21:00; Stop 11/06/16 at 21:00; Status DC Ergocalciferol (Vitamin D2) 50,000 unit Mo PO ; Start 11/16/16 at 09:00 Glimepiride (Amaryl) 1 mg DAILY PO Last administered on 11/07/16 08:15; Start 11/07/16 at 09:00; Stop 11/07/16 at 14:37; Status DC Ondansetron HCl (Zofran Odt) 4 mg PRN Q8HRS PRN PO NAUSEA; Start 11/06/16 at 17: 45 Oxybutynin Chloride (Ditropan) 2.5 mg BID PO Last administered on 11/08/16 08: 38; Start 11/06/16 at 21:00 Non-Formulary Medication 18 mcg DAILY IH ; Start 11/07/16 at 09:00; Stop 11/07/16 at 09:00; Status DC Colchicine (Colcrys) 0.6 mg BID PO Last administered on 11/08/16 08:37; Start 11/06/16 at 18:00; Stop 11/09/16 at 17:59 Albuterol/ Ipratropium (Duoneb) 3 ml RTQID NEB Last administered on 11/08/16 07 :44; Start 11/06/16 at 20:00 Albuterol Sulfate (Ventolin Neb Soln) 2.5 mg PRN Q4HRS PRN NEB SHORTNESS OF BREATH Last administered on 11/07/16 08:25; Start 11/06/16 at 17:30 Budesonide (Pulmicort) 0.5 mg RTBID NEB Last administered on 11/08/16 07:44; Start 11/06/16 at 20:00 Oxycodone/ Acetaminophen (Percocet 5/325) 1 tab PRN Q4HRS PRN PO PAIN Last administered on 11/08/16 08:39; Start 11/07/16 at 10:00 Ibuprofen (Motrin) 600 mg TID PO ; Start 11/07/16 at 14:00 Insulin Aspart (NovoLOG) 0-9 UNITS TIDWMEALS SQ ; Start 11/07/16 at 12:00 Dextrose (Dextrose 50%-Water Syringe) 12.5 gm PRN Q15MIN PRN IV SEE COMMENTS Last administered on 11/07/16 11:43; Start 11/07/16 at 10:00 Colchicine (Colcrys) 1.2 mg 1X ONCE PO ; Start 11/07/16 at 10:30; Stop 11/07/16 at 10:31; Status Cancel Colchicine (Colcrys) 0.6 mg 1X ONCE PO Last administered on 11/07/16 14:05; Start 11/07/16 at 12:00; Stop 11/07/16 at 12:01; Status DC Colchicine (Colcrys) 1.2 mg 1X ONCE PO Last administered on 11/07/16 11:38; Start 11/07/16 at 10:30; Stop 11/07/16 at 10:31; Status DC Dextrose 250 ml @ As Directed STK-MED ONCE IV ; Start 11/07/16 at 11:34; Stop at 11:35; Status DC Acetaminophen (Tylenol) 650 mg PRN Q6HRS PRN PO FEVER; Start 11/07/16 at 14:45 Ondansetron HCl (Zofran) 4 mg PRN Q6HRS PRN IV NAUSEA/VOMITING; Start 11/07/16 at 14:45 Morphine Sulfate 2 mg PRN Q2HR PRN IV PAIN Last administered on 11/07/16 22:58 ; Start 11/07/16 at 14:45 Tramadol HCl (Ultram) 50 mg PRN Q6HRS PRN PO PAIN; Start 11/07/16 at 14:45 Hydralazine HCl (Apresoline) 10 mg PRN Q4HRS PRN IVP ELEVATED BP, SEE COMMENTS ; Start 11/07/16 at 14:45 Docusate Sodium (Colace) 100 mg PRN DAILY PRN PO CONSTIPATION; Start 11/07/16 at 14:45 Active Scripts Active Zofran (Ondansetron Hcl) 4 Mg Tablet 1 Tab PO Q8HRS PRN Reported [place] 5-325 Tablet (Acetaminophen/Hydrocodone Bitart) 1 Each Tablet 1 Tab PO PRN Q6HRS PRN Cyclobenzaprine Hcl 5 Mg Tablet 1 Tab PO PRN Q6HRS PRN Tizanidine Hcl 4 Mg Tablet 1 Tab PO BID Mucinex (Guaifenesin) 600 Mg Tablet.er 1 Tab PO BID Glimepiride 1 Mg Tablet 1 Mg PO DAILY Symbicort 160-4.5 Mcg Inhaler (Budesonide/Formoterol Fumarate) 10.2 Gm Hfa.aer.ad 1 Puff IH BID Vitamin D (Cholecalciferol (Vitamin D3)) 50,000 Unit Capsule 50,000 Unit PO WEEKLY Ditropan Xl (Oxybutynin Chloride) 5 Mg Tab.er.24 5 Mg PO DAILY Losartan Potassium 50 Mg Tablet 50 Mg PO DAILY Simvastatin 10 Mg Tablet 10 Mg PO HS Proair Hfa Inhaler (Albuterol Sulfate) 8.5 Gm Hfa.aer.ad 17 Gm IH Q4HRS W/A PRN Spiriva (Tiotropium Cobb) 18 Mcg Cap.w.dev 18 Mcg IH DAILY Protonix (Pantoprazole Sodium) 40 Mg Granpkt.dr 40 Mg PO DAILY Singulair Tablet (Montelukast Sodium) 10 Mg Tablet 10 Mg PO DAILY Diltiazem 24HR Cd (Diltiazem Hcl) 120 Mg Cap.er.24h 120 Mg PO DAILY Vitals/I & O Vital Sign - Last 24 Hours 11/07/16 11/07/16 11/07/16 11/07/16 14:48 15:35 19:00 19:05 Temp 98.4 98.4 98.4 98.4 Pulse 114 97 Resp 16 16 B/P (MAP) 104/70 (81) 112/71 (85) Pulse Ox 91 100 O2 Delivery Room Air Room Air Room Air 11/07/16 11/07/16 11/07/16 11/07/16 19:25 20:12 22:58 23:00 Temp 98.2 98.2 Pulse 94 Resp 18 18 16 B/P (MAP) 109/63 (78) Pulse Ox 93 93 93 91 O2 Delivery Room Air Room Air Room Air 11/07/16 11/08/16 11/08/16 11/08/16 23:22 02:26 03:25 07:00 Temp 97.9 97.9 Pulse 86 Resp 16 18 16 18 B/P (MAP) 103/70 (81) Pulse Ox 93 93 93 93 O2 Delivery Room Air Room Air Room Air 11/08/16 11/08/16 11/08/16 11/08/16 07:46 07:50 08:15 08:38 Pulse 86 B/P (MAP) 103/70 Pulse Ox 94 94 O2 Delivery Room Air Room Air Room Air 11/08/16 11/08/16 11/08/16 11/08/16 08:38 08:39 10:36 11:00 Temp 97.9 97.9 Pulse 86 91 Resp 18 B/P (MAP) 103/70 97/65 (76) Pulse Ox 91 O2 Delivery Room Air Room Air Room Air Intake and Output 11/07/16 11/07/16 11/08/16 15:00 23:00 07:00 Intake Total 360 ml 300 ml Output Total 800 ml Balance -440 ml 300 ml CLAUDETTE QUIGLEY MD Nov 08, 2016 11:57
[2016-11-08 14:49] VITALS: BP 101/68
[2016-11-08 19:00] VITALS: BP 136/88
[2016-11-08] MEDS: SIMVASTATIN 10 MG TABLET PO SCH (20:46)
[2016-11-08 23:00] VITALS: BP 120/78
[2016-11-09 07:00] VITALS: BP 123/80
[2016-11-09] MEDS: BUDESONIDE 0.5 MG/2 ML NEBU. NEB SCH (07:55)
[2016-11-09] MEDS: IPRATRPIUM/ALBUTEROL 0.5/2.5MG 3 ML NEBU. NEB SCH ×3 (07:55→16:42)
[2016-11-09] MEDS: INSULIN ASPART 300 UNITS/3 ML INSULN.PEN SQ SCH ×2 (08:00→12:00)
[2016-11-09] MEDS: COLCHICINE 0.6 MG TABLET PO SCH (08:33)
[2016-11-09] MEDS: OXYBUTYNIN CHLORIDE 5 MG TABLET PO SCH (08:34)
[2016-11-09] MEDS: MONTELUKAST SODIUM 10 MG TABLET. PO SCH (08:34)
[2016-11-09] MEDS: tiZANidine 4 MG TABLET. PO SCH (08:34)
[2016-11-09] MEDS: LOSARTAN POTASSIUM 50 MG TABLET. PO SCH (08:34)
[2016-11-09] MEDS: oxyCODONE/APAP 5/325 1 TAB TABLET PO PRN (08:35)
[2016-11-09] MEDS: IBUPROFEN 600 MG TABLET. PO SCH ×2 (08:39→14:00)
[2016-11-09] MEDS ORDERED: COLC0.6T34 PO (09:13)
--- NOTE | 2016-11-09 09:19 | PDOC3 ---
Discharge Summary Visit Information Date of Admission: Nov 06, 2016 Date of Discharge: Nov 09, 2016 Admitting Diagnosis Comment: right ankle pain and swelling, 2/2 gout vs. pesudogout TRial of RT ankle aspiration- failed (keturah aspirate/liquid) h/o CAD, hypertension, hyperlipidemia, diabetes mellitus, COPD, scoliosis with a back surgery as a child. Final Diagnosis Problems Medical Problems: (1) Elevated C-reactive protein (CRP) Status: Acute Brief Hospital Course Allergies Allergies Coded Allergies Type Severity Reaction Last Updated Verified aspirin Allergy Intermediate 07/24/13 Yes Vital Signs Vital Signs Date Time Temp Pulse Resp B/P (MAP) Pulse Ox O2 Delivery O2 Flow Rate FiO2 11/09/16 08:34 87 123/80 11/09/16 07:58 96 Room Air 11/09/16 07:00 97.9 16 97.9 Lab Results Laboratory Tests Test 11/07/16 11:27 11/07/16 13:31 11/07/16 16:34 11/07/16 21:04 Glucose (Fingerstick) 49 mg/dL (70-99) 92 mg/dL (70-99) 95 mg/dL (70-99) 122 mg/dL (70-99) Test 11/08/16 05:45 11/08/16 07:19 11/08/16 11:06 11/08/16 16:14 White Blood Count 6.6 x10^3/uL (4.0-11.0) Red Blood Count 3.55 x10^6/uL (3.50-5.40) Hemoglobin 10.4 g/dL (12.0-15.5) Hematocrit 32.0 % (36.0-47.0) Mean Corpuscular Volume 90 fL (79-100) Mean Corpuscular Hemoglobin 29 pg (25-35) Mean Corpuscular Hemoglobin Concent 33 g/dL (31-37) Red Cell Distribution Width 14.1 % (11.5-14.5) Platelet Count 310 x10^3/uL (140-400) Neutrophils (%) (Auto) 67 % (31-73) Lymphocytes (%) (Auto) 15 % (24-48) Monocytes (%) (Auto) 14 % (0-9) Eosinophils (%) (Auto) 4 % (0-3) Basophils (%) (Auto) 1 % (0-3) Neutrophils # (Auto) 4.4 x10^3uL (1.8-7.7) Lymphocytes # (Auto) 1.0 x10^3/uL (1.0-4.8) Monocytes # (Auto) 0.9 x10^3/uL (0.0-1.1) Eosinophils # (Auto) 0.2 x10^3/uL (0.0-0.7) Basophils # (Auto) 0.0 x10^3/uL (0.0-0.2) Sodium Level 141 mmol/L (136-145) Potassium Level 4.7 mmol/L (3.5-5.1) Chloride Level 104 mmol/L (98-107) Carbon Dioxide Level 31 mmol/L (21-32) Anion Gap 6 (6-14) Blood Urea Nitrogen 13 mg/dL (7-20) Creatinine 0.8 mg/dL (0.6-1.0) Estimated GFR (Cockcroft-Gault) 73.2 Glucose Level 92 mg/dL (70-99) Calcium Level 8.9 mg/dL (8.5-10.1) Glucose (Fingerstick) 85 mg/dL (70-99) 109 mg/dL (70-99) 105 mg/dL (70-99) Test 11/08/16 21:10 11/09/16 07:28 Glucose (Fingerstick) 108 mg/dL (70-99) 86 mg/dL (70-99) Laboratory Tests Test 11/08/16 11:06 11/08/16 16:14 11/08/16 21:10 11/09/16 07:28 Glucose (Fingerstick) 109 mg/dL (70-99) 105 mg/dL (70-99) 108 mg/dL (70-99) 86 mg/dL (70-99) Brief Hospital Course Ms. Moncada is a 61 old female, known to us for frequent COPD exacerbations admit, this time admitted for RT ankle knee pain. Imaging neg. LAbs including uric acid neg,but better on COlcrys. NO hx gout, Does admit to recent stressor, of brother a month ago from alcoholism, Awaitng pT eval. BUt medically ready for home. Requests hydrocodone rx for home PT seen and examined CLEAR BS Dispo: home Time 31 mins > 50% counselling Discharge Information Condition at Discharge: Improved, Stable Disposition/Orders: D/C to Home Scheduled Budesonide/Formoterol Fumarate (Symbicort 160-4.5 Mcg Inhaler), 1 PUFF IH BID, ( Reported) Cholecalciferol (Vitamin D3) (Vitamin D), 50,000 UNIT PO WEEKLY, (Reported) Diltiazem Hcl (Diltiazem 24HR Cd), 120 MG PO DAILY, (Reported) Glimepiride (Glimepiride), 1 MG PO DAILY, (Reported) Guaifenesin (Mucinex), 1 TAB PO BID, (Reported) Losartan Potassium (Losartan Potassium), 50 MG PO DAILY, (Reported) Montelukast Sodium (Singulair Tablet), 10 MG PO DAILY, (Reported) Oxybutynin Chloride (Ditropan Xl), 5 MG PO DAILY, (Reported) Pantoprazole Sodium (Protonix), 40 MG PO DAILY, (Reported) Simvastatin (Simvastatin), 10 MG PO HS, (Reported) Tiotropium [place] (Spiriva), 18 MCG IH DAILY, (Reported) Tizanidine Hcl (Tizanidine Hcl), 1 TAB PO BID, (Reported) Scheduled PRN Albuterol Sulfate (Proair Hfa Inhaler), 17 GM IH Q4HRS W/A PRN for COUGH, ( Reported) Cyclobenzaprine Hcl (Cyclobenzaprine Hcl), 1 TAB PO PRN Q6HRS PRN for MUSCLE SPASMS, (Reported) Hydrocodone/Apap 5-325 ([place] 5-325 Tablet), 1 TAB PO PRN Q6HRS PRN for PAIN, ( Reported) Ondansetron Hcl (Zofran), 1 TAB PO Q8HRS PRN for NAUSEA Discontinued Medications Albuterol Sulfate (Albuterol Sulfate Neb Soln), 3 MG IH Q4HRS PRN for COUGH, ( Reported) GARRY DUBON MD Nov 09, 2016 09:19
[2016-11-09 10:43] VITALS: BP 94/62
[2016-11-09] MEDS: HYDROcodone/APAP 5/325MG 1 TAB TABLET PO PRN (10:56)
[2016-11-09 15:00] VITALS: BP 110/65
[2016-11-16] MEDS ORDERED: ERGOCALCIFEROL (VITAMIN D2) 50,000 UNIT CAPSULE. PO SCH (09:00)
== END 2016-11-09 17:18 | disposition home or self-care (01) | DRG 603 ==
LOC: ER 08:50 → 5 SOUTH 09:23
PROVIDERS: ADMIT Internal Medicine Hematology & Oncology; ATTEND Internal Medicine Hematology & Oncology
PROC: 0Y9K3ZZ Drainage of Right Ankle Region, Percutaneous Approach (ICD-10-PCS; principal; 2016-11-06)
DX: L03.115 Cellulitis of right lower limb (principal); M11.271 Other chondrocalcinosis, right ankle and foot; E10.649 Type 1 diabetes mellitus with hypoglycemia without coma; E78.00 Pure hypercholesterolemia, unspecified; E78.5 Hyperlipidemia, unspecified; I10 Essential (primary) hypertension; I25.10 Atherosclerotic heart disease of native coronary artery without angina pectoris; J44.9 Chronic obstructive pulmonary disease, unspecified; M19.079 Primary osteoarthritis, unspecified ankle and foot; M41.9 Scoliosis, unspecified; M25.471 Effusion, right ankle; M10.9 Gout, unspecified; Z96.641 Presence of right artificial hip joint; F41.9 Anxiety disorder, unspecified; R79.82 Elevated C-reactive protein (CRP); Z90.5 Acquired absence of kidney; Z88.6 Allergy status to analgesic agent; Z82.49 Family history of ischemic heart disease and other diseases of the circulatory system
CPT/HCPCS: 36415; 73610; 80048; 80053; 82962; 84550; 85027; 85610; 85651; 85730; 86140; 87040; 94250; 94640; 94760; C1887; J2270; J3010; J3490; J7042; J7613; J7620; J7626; 99285-25

== ENCOUNTER 2017-06-10 09:33 | Inpatient (IN) | payer OTHER ==
[2017-06-10] MEDS: IV NORMAL SALINE 1000ML BAG 1,000 ML IV ×3 (02:00→14:03)
[2017-06-10] MEDS ORDERED: 0.9 % SODIUM CHLORIDE 10 ML DISP.SYRIN. IV (09:45)
[2017-06-10 09:54] LABS: ADD MAN DIFF? NO
[2017-06-10 09:59] LABS: BASO # 0.1 x10^3/uL (0.0-0.2); BASO % 1 % (0-3); EOS # 0.2 x10^3/uL (0.0-0.7); EOS % 2 % (0-3); HEMATOCRIT 37.6 % (36.0-47.0); HEMOGLOBIN 12.7 g/dL (12.0-15.5); LYMPH # 0.9 x10^3/uL (1.0-4.8); LYMPH % 9 % (24-48); MEAN CORPUSCULAR HEMOGLOBIN 30 pg (25-35); MEAN CORPUSCULAR HGB CONC 34 g/dL (31-37); MEAN CORPUSCULAR VOLUME 89 fL (79-100); MONO # 0.7 x10^3/uL (0.0-1.1); MONO % 7 % (0-9); NEUT # 8.8 x10^3uL (1.8-7.7); NEUT % 82 % (31-73); PLATELET COUNT 452 x10^3/uL (140-400); RED BLOOD COUNT 4.24 x10^6/uL (3.50-5.40); RED CELL DISTRIBUTION WIDTH 13.8 % (11.5-14.5); WHITE BLOOD COUNT 10.8 x10^3/uL (4.0-11.0)
[2017-06-10 10:13] LABS: ANION GAP 8 (6-14); BLOOD UREA NITROGEN 16 mg/dL (7-20); CALCIUM 9.5 mg/dL (8.5-10.1); CARBON DIOXIDE 30 mmol/L (21-32); CHLORIDE 100 mmol/L (98-107); CREATININE 0.8 mg/dL (0.6-1.0); GFR 73.2; GLUCOSE 98 mg/dL (70-99); POTASSIUM 4.1 mmol/L (3.5-5.1); SODIUM 138 mmol/L (136-145)
[2017-06-10 10:15] LABS: BASE EXCESS ABG 5 mmol/L (-3-3); HCO3 ABG 30 mmol/L (21-28); PCO2 ABG 47 mmHg (35-46); PH ABG 7.42 (7.35-7.45); PO2 ABG 68 mmHg (65-108); SAT O2 ABG 92 % (92-99)
[2017-06-10 10:20] LABS: ALBUMIN 3.7 g/dL (3.4-5.0); ALK PHOS 125 U/L (46-116); ALT (SGPT) 16 U/L (14-59); AST (SGOT) 13 U/L (15-37); DIRECT BILIRUBIN 0.1 mg/dL (0.0-0.2); LIPASE 51 U/L (73-393); MAGNESIUM 1.7 mg/dL (1.8-2.4); TOTAL BILIRUBIN 0.5 mg/dL (0.2-1.0); TOTAL PROTEIN 7.7 g/dL (6.4-8.2)
[2017-06-10] MEDS: methylPREDNISolone SOD SUCC PF 125 MG/2 ML VIAL. IV (10:20)
[2017-06-10] MEDS: IPRATRPIUM/ALBUTEROL 0.5/2.5MG 3 ML NEBU. NEB ×4 (10:20→19:28)
[2017-06-10] MEDS: ALBUTEROL SULFATE 2.5 MG/3 ML NEBU. CONT NEB (10:20)
[2017-06-10 10:22] LABS: TROPONINI < 0.017 ng/mL (0.000-0.055)
[2017-06-10 10:24] LABS: THYROID STIM HORMONE (TSH) 1.802 uIU/mL (0.358-3.74)
[2017-06-10 10:27] LABS: CKMB MASS 1.2 ng/mL (0.0-3.6); CREATINE KINASE 58 U/L (26-192)
[2017-06-10 10:27] LABS: NT-PRO BNP 216 pg/mL (0-124)
[2017-06-10 10:38] LABS: INFLUENZA A PATIENT NEGATIVE (NEGATIVE); INFLUENZA B PATIENT NEGATIVE (NEGATIVE); OBC FLU VALID
[2017-06-10] MEDS: fentaNYL PF VIAL 100 MCG/2 ML VIAL IV (10:52)
[2017-06-10] MEDS ORDERED: fentaNYL PF VIAL 100 MCG/2 ML VIAL IV (11:00)
[2017-06-10] MEDS ORDERED: ONDANSETRON PF 4 MG/2 ML VIAL. IV ×2 (11:00→16:15)
[2017-06-10 13:05] LABS: POC GLUCOSE 88 mg/dL (70-99)
[2017-06-10] MEDS: ACETAMINOPHEN 325 MG TABLET. PO (14:01)
[2017-06-10] MEDS: methylPREDNISolone SOD SUCC PF 40 MG/ML VIAL. IV ×2 (14:02→23:09)
[2017-06-10] MEDS: CIPROFLOXACIN 400MG PREMIX 200 ML IV (14:02)
[2017-06-10 14:18] LABS: TROPONINI < 0.017 ng/mL (0.000-0.055)
[2017-06-10] MEDS ORDERED: ALBUTEROL SULFATE 2.5 MG/3 ML NEBU. NEB (16:15)
[2017-06-10] MEDS ORDERED: ACETAMINOPHEN 325 MG TABLET. PO (16:15)
[2017-06-10] MEDS ORDERED: DEXTROSE 50% 25 GM / 50ML DISP.SYRIN. IV (16:15)
[2017-06-10] MEDS ORDERED: DOCUSATE SODIUM 100 MG CAPSULE. PO (16:15)
[2017-06-10] MEDS ORDERED: hydrALAZINE 20 MG/ML VIAL. IVP (16:15)
[2017-06-10] MEDS ORDERED: CYCLOBENZAPRINE 10 MG TABLET. PO (16:45)
[2017-06-10] MEDS ORDERED: ONDANSETRON ODT 4 MG TAB.RAPDIS. PO (16:45)
[2017-06-10] MEDS: DOXYCYCLINE HYCLATE 100 MG TABLET PO (17:54)
[2017-06-10] MEDS: INSULIN ASPART 300 UNITS/3 ML INSULN.PEN SQ (17:58)
[2017-06-10 18:11] LABS: TROPONINI < 0.017 ng/mL (0.000-0.055)
[2017-06-10 18:28] LABS: POC GLUCOSE 211 mg/dL (70-99)
[2017-06-10] MEDS: OXYBUTYNIN CHLORIDE 5 MG TABLET PO (19:41)
[2017-06-10] MEDS: SIMVASTATIN 10 MG TABLET PO (19:41)
[2017-06-10] MEDS: LACTOBACILLUS RHAMNOSUS GG 1 CAPSULE. PO (19:41)
[2017-06-10] MEDS: BUDESONIDE 0.5 MG/2 ML NEBU. NEB (20:00)
[2017-06-10] MEDS: ENOXAPARIN 40 MG/0.4 ML SYRINGE. SQ (20:21)
[2017-06-10] MEDS: guaiFENesin DM 200MG/20MG 10 ML SYRUP PO (20:47)
[2017-06-10] MEDS ORDERED: CIPROFLOXACIN 400MG PREMIX 200 ML IV (21:00)
[2017-06-10] MEDS ORDERED: NON FORMULARY ITEM (Budesonide/Formoterol Fumarate (Symbicort 160-4.5 Mcg Inhaler) 1 PUFF) IH (21:00)
[2017-06-10 21:04] LABS: POC GLUCOSE 120 mg/dL (70-99)
[2017-06-10] MEDS: MORPHINE SULFATE 4 MG/ML DISP.SYRIN. IV (23:09)
[2017-06-11 05:43] LABS: BASO % 0 % (0-3); EOS % 0 % (0-3); HEMATOCRIT 36.5 % (36.0-47.0); HEMOGLOBIN 12.2 g/dL (12.0-15.5); LYMPH # 0.4 x10^3/uL (1.0-4.8); LYMPH % 4 % (24-48); MEAN CORPUSCULAR HEMOGLOBIN 30 pg (25-35); MEAN CORPUSCULAR HGB CONC 33 g/dL (31-37); MEAN CORPUSCULAR VOLUME 90 fL (79-100); MONO # 0.1 x10^3/uL (0.0-1.1); MONO % 1 % (0-9); NEUT # 8.3 x10^3uL (1.8-7.7); NEUT % 95 % (31-73); PLATELET COUNT 403 x10^3/uL (140-400); RED BLOOD COUNT 4.08 x10^6/uL (3.50-5.40); WHITE BLOOD COUNT 8.8 x10^3/uL (4.0-11.0)
[2017-06-11 05:44] LABS: ANION GAP 6 (6-14); BLOOD UREA NITROGEN 18 mg/dL (7-20); CALCIUM 9.3 mg/dL (8.5-10.1); CARBON DIOXIDE 29 mmol/L (21-32); CHLORIDE 105 mmol/L (98-107); CREATININE 0.7 mg/dL (0.6-1.0); GFR 85.4; GLUCOSE 129 mg/dL (70-99); POTASSIUM 4.4 mmol/L (3.5-5.1); SODIUM 140 mmol/L (136-145)
[2017-06-11 05:55] LABS: ADD MAN DIFF? YES
[2017-06-11] MEDS: methylPREDNISolone SOD SUCC PF 40 MG/ML VIAL. IV (06:01)
[2017-06-11 08:00] LABS: POC GLUCOSE 110 mg/dL (70-99)
[2017-06-11] MEDS: INSULIN ASPART 300 UNITS/3 ML INSULN.PEN SQ ×3 (08:00→17:00)
[2017-06-11] MEDS: IPRATRPIUM/ALBUTEROL 0.5/2.5MG 3 ML NEBU. NEB ×4 (08:33→20:08)
[2017-06-11] MEDS: BUDESONIDE 0.5 MG/2 ML NEBU. NEB ×2 (08:33→20:08)
[2017-06-11] MEDS ORDERED: NON FORMULARY ITEM (Tiotropium Bromide (Spiriva) 18 MCG) IH (09:00)
[2017-06-11] MEDS: LACTOBACILLUS RHAMNOSUS GG 1 CAPSULE. PO ×2 (09:03→21:27)
[2017-06-11] MEDS: guaiFENesin DM 200MG/20MG 10 ML SYRUP PO (09:03)
[2017-06-11] MEDS: COLCHICINE 0.6 MG TABLET PO (09:03)
[2017-06-11] MEDS: DOXYCYCLINE HYCLATE 100 MG TABLET PO ×2 (09:04→21:28)
[2017-06-11] MEDS: OXYBUTYNIN CHLORIDE 5 MG TABLET PO ×2 (09:04→21:28)
[2017-06-11] MEDS: HYDROcodone/APAP 5/325MG 1 TAB TABLET PO ×2 (09:05→21:27)
[2017-06-11] MEDS: GLIMEPIRIDE 2 MG TABLET. PO (09:05)
[2017-06-11] MEDS: MONTELUKAST SODIUM 10 MG TABLET. PO (09:06)
[2017-06-11] MEDS: PANTOPRAZOLE 40 MG TABLET.DR. PO (09:06)
[2017-06-11] MEDS: LOSARTAN POTASSIUM 50 MG TABLET. PO (09:06)
[2017-06-11 10:04] LABS: % BANDS 3 % (0-9); % LYMPHS 2 % (24-48); % SEGS 95 % (35-66)
[2017-06-11 10:05] LABS: PLT ESTIMATE INCREASED (ADEQUATE)
[2017-06-11 11:16] LABS: POC GLUCOSE 110 mg/dL (70-99)
[2017-06-11] MEDS: methylPREDNISolone SOD SUCC PF 125 MG/2 ML VIAL. IV ×2 (14:40→21:28)
[2017-06-11] MEDS: IV NORMAL SALINE 1000ML BAG 1,000 ML IV (14:41)
[2017-06-11 16:34] LABS: POC GLUCOSE 108 mg/dL (70-99)
[2017-06-11] MEDS: ENOXAPARIN 40 MG/0.4 ML SYRINGE. SQ (21:00)
[2017-06-11] MEDS: SIMVASTATIN 10 MG TABLET PO (21:28)
[2017-06-11 22:30] LABS: POC GLUCOSE 141 mg/dL (70-99)
[2017-06-11] MEDS: traMADol 50 MG TABLET PO (22:49)
[2017-06-12] MEDS: IPRATRPIUM/ALBUTEROL 0.5/2.5MG 3 ML NEBU. NEB ×6 (03:41→19:48)
[2017-06-12] MEDS: methylPREDNISolone SOD SUCC PF 125 MG/2 ML VIAL. IV ×3 (06:19→21:10)
[2017-06-12] MEDS: HYDROcodone/APAP 5/325MG 1 TAB TABLET PO (06:19)
[2017-06-12] MEDS: guaiFENesin DM 200MG/20MG 10 ML SYRUP PO (06:27)
[2017-06-12] MEDS: DOXYCYCLINE HYCLATE 100 MG TABLET PO ×2 (07:58→21:10)
[2017-06-12] MEDS: MONTELUKAST SODIUM 10 MG TABLET. PO (07:59)
[2017-06-12] MEDS: COLCHICINE 0.6 MG TABLET PO (07:59)
[2017-06-12] MEDS: INSULIN ASPART 300 UNITS/3 ML INSULN.PEN SQ ×3 (08:00→17:00)
[2017-06-12] MEDS: LACTOBACILLUS RHAMNOSUS GG 1 CAPSULE. PO ×2 (08:01→21:10)
[2017-06-12] MEDS: LOSARTAN POTASSIUM 50 MG TABLET. PO (08:01)
[2017-06-12] MEDS: PANTOPRAZOLE 40 MG TABLET.DR. PO (08:01)
[2017-06-12] MEDS: OXYBUTYNIN CHLORIDE 5 MG TABLET PO ×2 (08:02→21:10)
[2017-06-12] MEDS: GLIMEPIRIDE 2 MG TABLET. PO (08:03)
[2017-06-12] MEDS: BUDESONIDE 0.5 MG/2 ML NEBU. NEB ×2 (08:22→19:48)
[2017-06-12 10:10] LABS: POC GLUCOSE 120 mg/dL (70-99)
[2017-06-12 11:02] LABS: POC GLUCOSE 82 mg/dL (70-99)
[2017-06-12 16:32] LABS: POC GLUCOSE 102 mg/dL (70-99)
[2017-06-12 20:25] LABS: POC GLUCOSE 136 mg/dL (70-99)
[2017-06-12] MEDS: ENOXAPARIN 40 MG/0.4 ML SYRINGE. SQ ×2 (21:00→21:10)
[2017-06-12] MEDS: SIMVASTATIN 10 MG TABLET PO (21:10)
[2017-06-13] MEDS: IPRATRPIUM/ALBUTEROL 0.5/2.5MG 3 ML NEBU. NEB ×5 (00:24→16:22)
[2017-06-13] MEDS: HYDROcodone/APAP 5/325MG 1 TAB TABLET PO (00:39)
[2017-06-13] MEDS: methylPREDNISolone SOD SUCC PF 125 MG/2 ML VIAL. IV (05:55)
[2017-06-13 07:32] LABS: POC GLUCOSE 106 mg/dL (70-99)
[2017-06-13] MEDS: INSULIN ASPART 300 UNITS/3 ML INSULN.PEN SQ ×2 (08:00→12:00)
[2017-06-13] MEDS: COLCHICINE 0.6 MG TABLET PO (08:08)
[2017-06-13] MEDS: PANTOPRAZOLE 40 MG TABLET.DR. PO (08:08)
[2017-06-13] MEDS: LOSARTAN POTASSIUM 50 MG TABLET. PO (08:08)
[2017-06-13] MEDS: MONTELUKAST SODIUM 10 MG TABLET. PO (08:09)
[2017-06-13] MEDS: OXYBUTYNIN CHLORIDE 5 MG TABLET PO (08:09)
[2017-06-13] MEDS: LACTOBACILLUS RHAMNOSUS GG 1 CAPSULE. PO (08:09)
[2017-06-13] MEDS: GLIMEPIRIDE 2 MG TABLET. PO (08:09)
[2017-06-13] MEDS: DOXYCYCLINE HYCLATE 100 MG TABLET PO (08:09)
[2017-06-13] MEDS: BUDESONIDE 0.5 MG/2 ML NEBU. NEB (08:15)
[2017-06-13 11:50] LABS: POC GLUCOSE 115 mg/dL (70-99)
[2017-06-13] MEDS ORDERED: methylPREDNISolone SOD SUCC PF 125 MG/2 ML VIAL. IV (21:00)
[2017-06-17] MEDS ORDERED: ERGOCALCIFEROL (VITAMIN D2) 50,000 UNIT CAPSULE. PO (09:00)
== END 2017-06-13 17:03 | disposition home or self-care (01) | DRG 189 ==
LOC: 6 SOUTH 06-11 11:44 → ER 09:33 → 6 SOUTH 11:08
DX: J96.01 Acute respiratory failure with hypoxia (principal); I11.0 Hypertensive heart disease with heart failure; I50.9 Heart failure, unspecified; J44.1 Chronic obstructive pulmonary disease with (acute) exacerbation; E11.9 Type 2 diabetes mellitus without complications; E78.5 Hyperlipidemia, unspecified; F41.9 Anxiety disorder, unspecified; K21.9 Gastro-esophageal reflux disease without esophagitis; M41.9 Scoliosis, unspecified; Z82.49 Family history of ischemic heart disease and other diseases of the circulatory system; Z87.891 Personal history of nicotine dependence; Z96.649 Presence of unspecified artificial hip joint; E78.00 Pure hypercholesterolemia, unspecified; Z88.6 Allergy status to analgesic agent
CPT/HCPCS: 36415; 36600; 71045; 80048; 80076; 82553; 82805; 82962; 83690; 83735; 83880; 84443; 84484; 85007; 85025; 87804; 87804-59; 93005; 94640; 94644; 94760; 96361; 96374; 96375; 99291-25; J0744; J1650; J1815; J2270; J2920; J2930; J3010; J7030; J7613; J7620; J7626

== ENCOUNTER 2017-08-10 19:11 | Inpatient (IN) | payer OTHER ==
[2017-08-10 19:43] LABS: ADD MAN DIFF? NO
[2017-08-10 19:45] LABS: BASO % 1 % (0-3); EOS # 0.2 x10^3/uL (0.0-0.7); EOS % 5 % (0-3); HEMATOCRIT 36.3 % (36.0-47.0); HEMOGLOBIN 12.3 g/dL (12.0-15.5); LYMPH # 0.7 x10^3/uL (1.0-4.8); LYMPH % 18 % (24-48); MEAN CORPUSCULAR HEMOGLOBIN 30 pg (25-35); MEAN CORPUSCULAR HGB CONC 34 g/dL (31-37); MEAN CORPUSCULAR VOLUME 89 fL (79-100); MONO # 0.6 x10^3/uL (0.0-1.1); MONO % 14 % (0-9); NEUT # 2.7 x10^3uL (1.8-7.7); NEUT % 64 % (31-73); PLATELET COUNT 334 x10^3/uL (140-400); RED BLOOD COUNT 4.09 x10^6/uL (3.50-5.40); WHITE BLOOD COUNT 4.3 x10^3/uL (4.0-11.0)
[2017-08-10] MEDS: IPRATRPIUM/ALBUTEROL 0.5/2.5MG 3 ML NEBU. NEB (19:48)
[2017-08-10 20:01] LABS: ANION GAP 5 (6-14); BLOOD UREA NITROGEN 11 mg/dL (7-20); BUN/CREATININE RATIO 16 (6-20); CALCIUM 9.1 mg/dL (8.5-10.1); CARBON DIOXIDE 31 mmol/L (21-32); CHLORIDE 105 mmol/L (98-107); CREATININE 0.7 mg/dL (0.6-1.0); GFR 85.4; GLUCOSE 127 mg/dL (70-99); POTASSIUM 3.6 mmol/L (3.5-5.1); SODIUM 141 mmol/L (136-145)
[2017-08-10 20:07] LABS: ALBUMIN 3.5 g/dL (3.4-5.0); ALBUMIN/GLOBULIN RATIO 1.1 (1.0-1.7); ALK PHOS 104 U/L (46-116); ALT (SGPT) 18 U/L (14-59); AST (SGOT) 15 U/L (15-37); TOTAL BILIRUBIN 0.4 mg/dL (0.2-1.0); TOTAL PROTEIN 6.7 g/dL (6.4-8.2)
[2017-08-10 20:08] LABS: TROPONINI < 0.017 ng/mL (0.000-0.055)
[2017-08-10 20:11] LABS: NT-PRO BNP 166 pg/mL (0-124)
[2017-08-10] MEDS: PROMETHAZINE IM 25 MG/ML VIAL IM (20:25)
[2017-08-10] MEDS: IOHEXOL 300 MG/ML 100ML VIAL. IV (20:30)
[2017-08-10] MEDS: KETOROLAC 30 MG/ML INJ. IV (20:48)
[2017-08-10] MEDS ORDERED: cefTRIAXone IV Push 1 GM VIAL. IVP (21:30)
[2017-08-10] MEDS: methylPREDNISolone SOD SUCC PF 125 MG/2 ML VIAL. IV (21:46)
[2017-08-10] MEDS: cefTRIAXone IV Push 1 GM VIAL. IVP (21:46)
[2017-08-10] MEDS: MORPHINE SULFATE 4 MG/ML DISP.SYRIN. IV (21:47)
[2017-08-10] MEDS: AZITHRMYCN 500MG IVPB FOR OMNI 250 ML IV (21:48)
[2017-08-10] MEDS: ONDANSETRON PF 4 MG/2 ML VIAL. IV (22:05)
[2017-08-11] MEDS: MORPHINE SULFATE 4 MG/ML DISP.SYRIN. IV ×3 (01:20→21:15)
[2017-08-11] MEDS: IPRATRPIUM/ALBUTEROL 0.5/2.5MG 3 ML NEBU. NEB ×5 (06:19→20:34)
[2017-08-11] MEDS: ACETAMINOPHEN 325 MG TABLET. PO (09:19)
[2017-08-11] MEDS ORDERED: ALBUTEROL SULFATE 2.5 MG/3 ML NEBU. NEB (11:15)
[2017-08-11] MEDS ORDERED: DOCUSATE SODIUM 100 MG CAPSULE. PO (11:15)
[2017-08-11] MEDS ORDERED: traMADol 50 MG TABLET PO (11:15)
[2017-08-11] MEDS ORDERED: ONDANSETRON PF 4 MG/2 ML VIAL. IV (11:15)
[2017-08-11] MEDS ORDERED: hydrALAZINE 20 MG/ML VIAL. IVP (11:15)
[2017-08-11] MEDS ORDERED: ACETAMINOPHEN 325 MG TABLET. PO (11:15)
[2017-08-11] MEDS ORDERED: MORPHINE SULFATE 4 MG/ML DISP.SYRIN. IV (11:15)
[2017-08-11] MEDS ORDERED: ONDANSETRON ODT 4 MG TAB.RAPDIS. PO (11:45)
[2017-08-11] MEDS: IOHEXOL 300 MG/ML 100ML VIAL. IV (12:30)
[2017-08-11] MEDS ORDERED: CONTRAST GIVEN MC (12:45)
[2017-08-11] MEDS: predniSONE 20 MG TABLET PO (12:47)
[2017-08-11] MEDS: OXYBUTYNIN CHLORIDE 5 MG TABLET PO ×2 (12:48→21:13)
[2017-08-11] MEDS: PANTOPRAZOLE 40 MG TABLET.DR. PO (12:49)
[2017-08-11] MEDS: tiZANidine 4 MG TABLET. PO ×2 (12:49→21:12)
[2017-08-11] MEDS: GLIMEPIRIDE 2 MG TABLET. PO (12:49)
[2017-08-11] MEDS: LOSARTAN POTASSIUM 50 MG TABLET. PO (12:54)
[2017-08-11] MEDS ORDERED: NON FORMULARY ITEM (Budesonide/Formoterol Fumarate (Symbicort 160-4.5 Mcg Inhaler) 1 PUFF) IH (21:00)
[2017-08-11] MEDS: LACTOBACILLUS RHAMNOSUS GG 1 CAPSULE. PO (21:12)
[2017-08-11] MEDS: MONTELUKAST SODIUM 10 MG TABLET. PO (21:12)
[2017-08-11] MEDS: DOXYCYCLINE HYCLATE 100 MG TABLET PO (21:12)
[2017-08-11] MEDS: FAMOTIDINE 20 MG TABLET. PO (21:13)
[2017-08-11] MEDS: SIMVASTATIN 10 MG TABLET PO (21:13)
[2017-08-11 23:39] LABS: POC GLUCOSE 154 mg/dL (70-99)
[2017-08-12] MEDS: IPRATRPIUM/ALBUTEROL 0.5/2.5MG 3 ML NEBU. NEB ×2 (07:50→11:28)
[2017-08-12 08:51] LABS: ADD MAN DIFF? NO
[2017-08-12] MEDS ORDERED: NON FORMULARY ITEM (Tiotropium Bromide (Spiriva) 18 MCG) IH (09:00)
[2017-08-12 09:03] LABS: ANION GAP 5 (6-14); BLOOD UREA NITROGEN 17 mg/dL (7-20); CALCIUM 9.1 mg/dL (8.5-10.1); CARBON DIOXIDE 31 mmol/L (21-32); CHLORIDE 106 mmol/L (98-107); CHOLESTEROL 179 mg/dL (0-200); CREATININE 0.7 mg/dL (0.6-1.0); GFR 85.4; GLUCOSE 105 mg/dL (70-99); HDLC 55 mg/dL (40-60); LDLC 110 mg/dL (0-100); NON-HDL CHOLESTEROL 124 mg/dL (0-129); POTASSIUM 4.5 mmol/L (3.5-5.1); SODIUM 142 mmol/L (136-145); TRIGLYCERIDES 71 mg/dL (0-150); VLDLC 14 mg/dL (0-40)
[2017-08-12 09:10] LABS: BASO % 0 % (0-3); EOS % 0 % (0-3); HEMATOCRIT 35.3 % (36.0-47.0); HEMOGLOBIN 11.9 g/dL (12.0-15.5); LYMPH # 0.6 x10^3/uL (1.0-4.8); LYMPH % 7 % (24-48); MEAN CORPUSCULAR HEMOGLOBIN 30 pg (25-35); MEAN CORPUSCULAR HGB CONC 34 g/dL (31-37); MEAN CORPUSCULAR VOLUME 90 fL (79-100); MONO # 0.8 x10^3/uL (0.0-1.1); MONO % 10 % (0-9); NEUT # 6.7 x10^3uL (1.8-7.7); NEUT % 83 % (31-73); PLATELET COUNT 353 x10^3/uL (140-400); RED BLOOD COUNT 3.94 x10^6/uL (3.50-5.40); RED CELL DISTRIBUTION WIDTH 14.5 % (11.5-14.5); WHITE BLOOD COUNT 8.1 x10^3/uL (4.0-11.0)
[2017-08-12 09:16] LABS: TROPONINI < 0.017 ng/mL (0.000-0.055)
[2017-08-12 09:19] LABS: CHOLESTEROL/HDL RATIO 3.3
[2017-08-12] MEDS: predniSONE 20 MG TABLET PO (12:20)
[2017-08-12] MEDS: GLIMEPIRIDE 2 MG TABLET. PO (12:20)
[2017-08-12] MEDS: tiZANidine 4 MG TABLET. PO (12:20)
[2017-08-12] MEDS: LACTOBACILLUS RHAMNOSUS GG 1 CAPSULE. PO (12:20)
[2017-08-12] MEDS: DOXYCYCLINE HYCLATE 100 MG TABLET PO (12:20)
[2017-08-12] MEDS: PANTOPRAZOLE 40 MG TABLET.DR. PO (12:21)
[2017-08-12] MEDS: OXYBUTYNIN CHLORIDE 5 MG TABLET PO (12:21)
[2017-08-12] MEDS: LOSARTAN POTASSIUM 50 MG TABLET. PO (12:23)
[2017-08-18] MEDS ORDERED: ERGOCALCIFEROL (VITAMIN D2) 50,000 UNIT CAPSULE. PO (09:00)
== END 2017-08-12 16:17 | disposition home or self-care (01) | DRG 189 ==
LOC: ER 19:11 → 2 NORTH 21:00
DX: J96.01 Acute respiratory failure with hypoxia (principal); I11.0 Hypertensive heart disease with heart failure; I50.9 Heart failure, unspecified; J44.1 Chronic obstructive pulmonary disease with (acute) exacerbation; M41.9 Scoliosis, unspecified; F41.9 Anxiety disorder, unspecified; E78.00 Pure hypercholesterolemia, unspecified; Z96.649 Presence of unspecified artificial hip joint; E78.5 Hyperlipidemia, unspecified; K21.9 Gastro-esophageal reflux disease without esophagitis; E11.9 Type 2 diabetes mellitus without complications; I25.10 Atherosclerotic heart disease of native coronary artery without angina pectoris; J98.4 Other disorders of lung; M19.90 Unspecified osteoarthritis, unspecified site; Z88.6 Allergy status to analgesic agent; Z82.49 Family history of ischemic heart disease and other diseases of the circulatory system; Z80.3 Family history of malignant neoplasm of breast; Z87.891 Personal history of nicotine dependence; Z79.4 Long term (current) use of insulin; Z82.5 Family history of asthma and other chronic lower respiratory diseases; Z90.5 Acquired absence of kidney
CPT/HCPCS: 36415; 71045; 71275; 80048; 80053; 80061; 82962; 83880; 84484; 85025; 93005; 93306; 94640; 94760; 96365; 96375; 97161-GP; 99285; 99285-25; J0456; J0696; J2270; J2405; J2930; J7512; J7620; Q9967

== ENCOUNTER 2017-10-23 07:23 | Inpatient (IN) | payer OTHER ==
[2017-10-23] MEDS: IPRATRPIUM/ALBUTEROL 0.5/2.5MG 3 ML NEBU. NEB ×3 (07:55→19:43)
[2017-10-23 08:18] LABS: ADD MAN DIFF? NO
[2017-10-23 08:23] LABS: BASO # 0.1 x10^3/uL (0.0-0.2); BASO % 1 % (0-3); EOS % 0 % (0-3); HEMATOCRIT 39.5 % (36.0-47.0); HEMOGLOBIN 13.4 g/dL (12.0-15.5); LYMPH # 0.7 x10^3/uL (1.0-4.8); LYMPH % 7 % (24-48); MEAN CORPUSCULAR HEMOGLOBIN 30 pg (25-35); MEAN CORPUSCULAR HGB CONC 34 g/dL (31-37); MEAN CORPUSCULAR VOLUME 89 fL (79-100); MONO # 0.9 x10^3/uL (0.0-1.1); MONO % 8 % (0-9); NEUT # 9.1 x10^3uL (1.8-7.7); NEUT % 84 % (31-73); PLATELET COUNT 372 x10^3/uL (140-400); RED BLOOD COUNT 4.44 x10^6/uL (3.50-5.40); RED CELL DISTRIBUTION WIDTH 15.5 % (11.5-14.5); WHITE BLOOD COUNT 10.8 x10^3/uL (4.0-11.0)
[2017-10-23 08:34] LABS: ANION GAP 8 (6-14); BLOOD UREA NITROGEN 7 mg/dL (7-20); CALCIUM 9.1 mg/dL (8.5-10.1); CARBON DIOXIDE 32 mmol/L (21-32); CHLORIDE 101 mmol/L (98-107); CREATININE 0.7 mg/dL (0.6-1.0); GFR 85.1; GLUCOSE 91 mg/dL (70-99); POTASSIUM 3.3 mmol/L (3.5-5.1); SODIUM 141 mmol/L (136-145)
[2017-10-23 08:38] LABS: ALBUMIN 3.8 g/dL (3.4-5.0); ALK PHOS 117 U/L (46-116); ALT (SGPT) 23 U/L (14-59); AST (SGOT) 14 U/L (15-37); DIRECT BILIRUBIN 0.1 mg/dL (0.0-0.2); LIPASE 50 U/L (73-393); TOTAL BILIRUBIN 0.5 mg/dL (0.2-1.0); TOTAL PROTEIN 7.4 g/dL (6.4-8.2)
[2017-10-23 08:39] LABS: TROPONINI < 0.017 ng/mL (0.000-0.055)
[2017-10-23 08:44] LABS: NT-PRO BNP 562 pg/mL (0-124)
[2017-10-23] MEDS ORDERED: ONDANSETRON PF 4 MG/2 ML VIAL. IV (09:00)
[2017-10-23] MEDS: AZITHROMYCIN 250 MG TABLET. PO (09:59)
[2017-10-23] MEDS: methylPREDNISolone SOD SUCC PF 125 MG/2 ML VIAL. IV (10:00)
[2017-10-23] MEDS: MORPHINE SULFATE 2 MG/ML DISP.SYRIN. IV ×3 (10:04→21:09)
[2017-10-23] MEDS: IV NORMAL SALINE 1000ML BAG 1,000 ML IV ×2 (10:37→18:34)
[2017-10-23 11:10] LABS: POC GLUCOSE 87 mg/dL (70-99)
[2017-10-23 12:16] LABS: TROPONINI < 0.017 ng/mL (0.000-0.055)
[2017-10-23] MEDS ORDERED: DEXTROSE 50% 25 GM / 50ML DISP.SYRIN. IV ×2 (15:30→21:15)
[2017-10-23] MEDS ORDERED: ONDANSETRON ODT 4 MG TAB.RAPDIS. PO (15:45)
[2017-10-23] MEDS ORDERED: PANTOPRAZOLE 40 MG TABLET.DR. PO (16:00)
[2017-10-23] MEDS ORDERED: GLIMEPIRIDE 2 MG TABLET. PO (16:00)
[2017-10-23] MEDS ORDERED: LOSARTAN POTASSIUM 50 MG TABLET. PO (16:00)
[2017-10-23 16:52] LABS: POC GLUCOSE 118 mg/dL (70-99)
[2017-10-23] MEDS: BENZONATATE 100 MG CAPSULE. PO ×2 (16:53→21:08)
[2017-10-23] MEDS: methylPREDNISolone SOD SUCC PF 40 MG/ML VIAL. IV ×2 (16:53→21:08)
[2017-10-23] MEDS: INSULIN LISPRO 300 UNITS/3 ML INSULN.PEN. SQ ×2 (16:54→21:25)
[2017-10-23 17:19] LABS: TROPONINI < 0.017 ng/mL (0.000-0.055)
[2017-10-23 20:38] LABS: POC GLUCOSE 252 mg/dL (70-99)
[2017-10-23] MEDS ORDERED: OXYBUTYNIN CHLORIDE 5 MG TABLET PO (21:00)
[2017-10-23] MEDS: tiZANidine 4 MG TABLET. PO (21:08)
[2017-10-23] MEDS: MONTELUKAST SODIUM 10 MG TABLET. PO (21:08)
[2017-10-23] MEDS: OXYBUTYNIN CHLORIDE 5 MG TABLET PO (21:08)
[2017-10-23] MEDS: SIMVASTATIN 10 MG TABLET PO (21:08)
[2017-10-24] MEDS: IV NORMAL SALINE 1000ML BAG 1,000 ML IV ×2 (05:55→14:12)
[2017-10-24] MEDS: methylPREDNISolone SOD SUCC PF 40 MG/ML VIAL. IV ×3 (05:55→21:54)
[2017-10-24] MEDS: IPRATRPIUM/ALBUTEROL 0.5/2.5MG 3 ML NEBU. NEB ×4 (07:08→19:56)
[2017-10-24] MEDS ORDERED: INSULIN LISPRO 300 UNITS/3 ML INSULN.PEN. SQ (07:30)
[2017-10-24] MEDS: INSULIN LISPRO 300 UNITS/3 ML INSULN.PEN. SQ ×4 (07:30→21:00)
[2017-10-24 08:16] LABS: POC GLUCOSE 110 mg/dL (70-99)
[2017-10-24] MEDS: MORPHINE SULFATE 2 MG/ML DISP.SYRIN. IV (08:24)
[2017-10-24] MEDS: tiZANidine 4 MG TABLET. PO ×2 (08:25→21:53)
[2017-10-24] MEDS: OXYBUTYNIN CHLORIDE 5 MG TABLET PO ×2 (08:25→21:53)
[2017-10-24] MEDS: LOSARTAN POTASSIUM 50 MG TABLET. PO (08:26)
[2017-10-24] MEDS: AZITHROMYCIN 250 MG TABLET. PO (08:26)
[2017-10-24] MEDS: GLIMEPIRIDE 2 MG TABLET. PO (08:27)
[2017-10-24] MEDS: BENZONATATE 100 MG CAPSULE. PO ×3 (08:28→21:53)
[2017-10-24] MEDS: PANTOPRAZOLE 40 MG TABLET.DR. PO (08:28)
[2017-10-24 09:31] LABS: BASO % 0 % (0-3); EOS % 0 % (0-3); HEMATOCRIT 37.1 % (36.0-47.0); HEMOGLOBIN 12.4 g/dL (12.0-15.5); LYMPH # 0.3 x10^3/uL (1.0-4.8); LYMPH % 2 % (24-48); MEAN CORPUSCULAR HEMOGLOBIN 30 pg (25-35); MEAN CORPUSCULAR HGB CONC 33 g/dL (31-37); MEAN CORPUSCULAR VOLUME 90 fL (79-100); MONO # 0.3 x10^3/uL (0.0-1.1); MONO % 2 % (0-9); NEUT % 96 % (31-73); PLATELET COUNT 361 x10^3/uL (140-400); RED BLOOD COUNT 4.13 x10^6/uL (3.50-5.40); RED CELL DISTRIBUTION WIDTH 15.3 % (11.5-14.5); WHITE BLOOD COUNT 13.6 x10^3/uL (4.0-11.0)
[2017-10-24 09:49] LABS: ALBUMIN 3.3 g/dL (3.4-5.0); ALBUMIN/GLOBULIN RATIO 0.9 (1.0-1.7); ALK PHOS 106 U/L (46-116); ALT (SGPT) 22 U/L (14-59); ANION GAP 9 (6-14); AST (SGOT) 13 U/L (15-37); BLOOD UREA NITROGEN 23 mg/dL (7-20); BUN/CREATININE RATIO 33 (6-20); CALCIUM 8.8 mg/dL (8.5-10.1); CARBON DIOXIDE 26 mmol/L (21-32); CHLORIDE 105 mmol/L (98-107); CREATININE 0.7 mg/dL (0.6-1.0); GFR 85.1; GLUCOSE 179 mg/dL (70-99); POTASSIUM 3.7 mmol/L (3.5-5.1); SODIUM 140 mmol/L (136-145); TOTAL BILIRUBIN 0.3 mg/dL (0.2-1.0); TOTAL PROTEIN 6.9 g/dL (6.4-8.2)
[2017-10-24 10:02] LABS: ADD MAN DIFF? YES
[2017-10-24] MEDS ORDERED: ONDANSETRON PF 4 MG/2 ML VIAL. IV (10:30)
[2017-10-24] MEDS ORDERED: hydrALAZINE 20 MG/ML VIAL. IVP (10:30)
[2017-10-24] MEDS ORDERED: ACETAMINOPHEN 325 MG TABLET. PO (10:30)
[2017-10-24] MEDS ORDERED: DOCUSATE SODIUM 100 MG CAPSULE. PO (10:30)
[2017-10-24 11:44] LABS: POC GLUCOSE 113 mg/dL (70-99)
[2017-10-24 12:51] LABS: % BANDS 14 % (0-9); % LYMPHS 1 % (24-48); % METAS 1 % (0-0); % MONOS 1 % (0-10); % SEGS 83 % (35-66); PLT ESTIMATE ADEQUATE (ADEQUATE)
[2017-10-24] MEDS: ENOXAPARIN 40 MG/0.4 ML SYRINGE. SQ (13:45)
[2017-10-24 16:19] LABS: POC GLUCOSE 86 mg/dL (70-99)
[2017-10-24 20:17] LABS: POC GLUCOSE 135 mg/dL (70-99)
[2017-10-24] MEDS: DOXYCYCLINE HYCLATE 100 MG TABLET PO (21:53)
[2017-10-24] MEDS: MONTELUKAST SODIUM 10 MG TABLET. PO (21:53)
[2017-10-24] MEDS: LACTOBACILLUS RHAMNOSUS GG 1 CAPSULE. PO (21:54)
[2017-10-24] MEDS: SIMVASTATIN 10 MG TABLET PO (21:54)
[2017-10-25] MEDS: MORPHINE SULFATE 2 MG/ML DISP.SYRIN. IV (02:40)
[2017-10-25] MEDS: methylPREDNISolone SOD SUCC PF 40 MG/ML VIAL. IV ×3 (06:16→22:11)
[2017-10-25] MEDS: IPRATRPIUM/ALBUTEROL 0.5/2.5MG 3 ML NEBU. NEB ×4 (07:28→19:40)
[2017-10-25] MEDS: INSULIN LISPRO 300 UNITS/3 ML INSULN.PEN. SQ ×4 (07:30→21:00)
[2017-10-25 08:17] LABS: POC GLUCOSE 99 mg/dL (70-99)
[2017-10-25] MEDS: PANTOPRAZOLE 40 MG TABLET.DR. PO (08:32)
[2017-10-25] MEDS: tiZANidine 4 MG TABLET. PO ×2 (08:33→22:18)
[2017-10-25] MEDS: GLIMEPIRIDE 2 MG TABLET. PO (08:33)
[2017-10-25] MEDS: DOXYCYCLINE HYCLATE 100 MG TABLET PO ×2 (08:34→22:11)
[2017-10-25] MEDS: LACTOBACILLUS RHAMNOSUS GG 1 CAPSULE. PO ×2 (08:34→22:10)
[2017-10-25] MEDS: BENZONATATE 100 MG CAPSULE. PO ×3 (08:34→22:10)
[2017-10-25] MEDS: OXYBUTYNIN CHLORIDE 5 MG TABLET PO ×2 (08:35→22:11)
[2017-10-25 09:39] LABS: ADD MAN DIFF? NO
[2017-10-25 09:46] LABS: BASO % 0 % (0-3); EOS % 0 % (0-3); HEMATOCRIT 34.7 % (36.0-47.0); HEMOGLOBIN 11.6 g/dL (12.0-15.5); LYMPH # 0.3 x10^3/uL (1.0-4.8); LYMPH % 2 % (24-48); MEAN CORPUSCULAR HEMOGLOBIN 30 pg (25-35); MEAN CORPUSCULAR HGB CONC 33 g/dL (31-37); MEAN CORPUSCULAR VOLUME 90 fL (79-100); MONO # 0.4 x10^3/uL (0.0-1.1); MONO % 3 % (0-9); NEUT # 14.8 x10^3uL (1.8-7.7); NEUT % 95 % (31-73); PLATELET COUNT 371 x10^3/uL (140-400); RED BLOOD COUNT 3.87 x10^6/uL (3.50-5.40); RED CELL DISTRIBUTION WIDTH 15.3 % (11.5-14.5); WHITE BLOOD COUNT 15.5 x10^3/uL (4.0-11.0)
[2017-10-25 10:08] LABS: ANION GAP 7 (6-14); BLOOD UREA NITROGEN 20 mg/dL (7-20); CALCIUM 8.4 mg/dL (8.5-10.1); CARBON DIOXIDE 26 mmol/L (21-32); CHLORIDE 108 mmol/L (98-107); CREATININE 0.8 mg/dL (0.6-1.0); GFR 72.9; GLUCOSE 139 mg/dL (70-99); POTASSIUM 3.6 mmol/L (3.5-5.1); SODIUM 141 mmol/L (136-145)
[2017-10-25 11:05] LABS: POC GLUCOSE 114 mg/dL (70-99)
[2017-10-25] MEDS ORDERED: methylPREDNISolone SOD SUCC PF 40 MG/ML VIAL. IV (14:00)
[2017-10-25 16:13] LABS: POC GLUCOSE 88 mg/dL (70-99)
[2017-10-25 21:21] LABS: POC GLUCOSE 88 mg/dL (70-99)
[2017-10-25] MEDS: SIMVASTATIN 10 MG TABLET PO (22:11)
[2017-10-25] MEDS: MONTELUKAST SODIUM 10 MG TABLET. PO (22:11)
[2017-10-26] MEDS: traMADol 50 MG TABLET PO ×2 (03:25→22:30)
[2017-10-26] MEDS: methylPREDNISolone SOD SUCC PF 40 MG/ML VIAL. IV ×3 (06:26→22:30)
[2017-10-26] MEDS: INSULIN LISPRO 300 UNITS/3 ML INSULN.PEN. SQ ×4 (07:30→21:00)
[2017-10-26 07:41] LABS: POC GLUCOSE 140 mg/dL (70-99)
[2017-10-26] MEDS: LACTOBACILLUS RHAMNOSUS GG 1 CAPSULE. PO ×2 (08:14→19:58)
[2017-10-26] MEDS: PANTOPRAZOLE 40 MG TABLET.DR. PO (08:14)
[2017-10-26] MEDS: GLIMEPIRIDE 2 MG TABLET. PO (08:14)
[2017-10-26] MEDS: tiZANidine 4 MG TABLET. PO ×2 (08:14→19:58)
[2017-10-26] MEDS: BENZONATATE 100 MG CAPSULE. PO ×3 (08:15→19:58)
[2017-10-26] MEDS: DOXYCYCLINE HYCLATE 100 MG TABLET PO ×2 (08:16→19:59)
[2017-10-26] MEDS: OXYBUTYNIN CHLORIDE 5 MG TABLET PO ×2 (08:16→19:58)
[2017-10-26] MEDS: IPRATRPIUM/ALBUTEROL 0.5/2.5MG 3 ML NEBU. NEB ×4 (08:25→19:20)
[2017-10-26 11:16] LABS: POC GLUCOSE 85 mg/dL (70-99)
[2017-10-26] MEDS: guaiFENesin DM 200MG/20MG 10 ML SYRUP PO ×3 (13:44→19:58)
[2017-10-26 16:07] LABS: POC GLUCOSE 92 mg/dL (70-99)
[2017-10-26] MEDS: MONTELUKAST SODIUM 10 MG TABLET. PO (19:58)
[2017-10-26] MEDS: SIMVASTATIN 10 MG TABLET PO (19:59)
[2017-10-26 20:21] LABS: POC GLUCOSE 136 mg/dL (70-99)
[2017-10-27] MEDS: methylPREDNISolone SOD SUCC PF 40 MG/ML VIAL. IV ×2 (05:38→14:00)
[2017-10-27] MEDS: INSULIN LISPRO 300 UNITS/3 ML INSULN.PEN. SQ ×2 (07:30→11:30)
[2017-10-27 07:52] LABS: POC GLUCOSE 94 mg/dL (70-99)
[2017-10-27] MEDS: IPRATRPIUM/ALBUTEROL 0.5/2.5MG 3 ML NEBU. NEB ×2 (08:16→11:24)
[2017-10-27] MEDS: PANTOPRAZOLE 40 MG TABLET.DR. PO (09:51)
[2017-10-27] MEDS: GLIMEPIRIDE 2 MG TABLET. PO (09:51)
[2017-10-27] MEDS: guaiFENesin DM 200MG/20MG 10 ML SYRUP PO ×2 (09:52→13:38)
[2017-10-27] MEDS: LACTOBACILLUS RHAMNOSUS GG 1 CAPSULE. PO (09:52)
[2017-10-27] MEDS: OXYBUTYNIN CHLORIDE 5 MG TABLET PO (09:52)
[2017-10-27] MEDS: tiZANidine 4 MG TABLET. PO (09:53)
[2017-10-27] MEDS: BENZONATATE 100 MG CAPSULE. PO ×2 (09:53→13:38)
[2017-10-27] MEDS: DOXYCYCLINE HYCLATE 100 MG TABLET PO (09:53)
[2017-10-27 11:29] LABS: POC GLUCOSE 115 mg/dL (70-99)
== END 2017-10-27 14:40 | disposition home or self-care (01) | DRG 189 ==
LOC: ER 07:23 → 5 SOUTH 08:50
DX: J96.01 Acute respiratory failure with hypoxia (principal); J44.1 Chronic obstructive pulmonary disease with (acute) exacerbation; J44.0 Chronic obstructive pulmonary disease with (acute) lower respiratory infection; E11.65 Type 2 diabetes mellitus with hyperglycemia; E78.00 Pure hypercholesterolemia, unspecified; E78.5 Hyperlipidemia, unspecified; F41.9 Anxiety disorder, unspecified; G89.29 Other chronic pain; I11.0 Hypertensive heart disease with heart failure; I25.10 Atherosclerotic heart disease of native coronary artery without angina pectoris; I50.9 Heart failure, unspecified; J06.9 Acute upper respiratory infection, unspecified; K21.9 Gastro-esophageal reflux disease without esophagitis; M41.9 Scoliosis, unspecified; T38.0X5A Adverse effect of glucocorticoids and synthetic analogues, initial encounter; Z79.51 Long term (current) use of inhaled steroids; Z82.49 Family history of ischemic heart disease and other diseases of the circulatory system; Z87.891 Personal history of nicotine dependence; Z96.649 Presence of unspecified artificial hip joint; Z90.5 Acquired absence of kidney; Z88.6 Allergy status to analgesic agent; Z80.9 Family history of malignant neoplasm, unspecified; J20.9 Acute bronchitis, unspecified
CPT/HCPCS: 36415; 71045; 80048; 80053; 80076; 82962; 83690; 83880; 84484; 85007; 85025; 93005; 94640; 94760; 97110-GO; 97110-GP; 97116-GP; 97161-GP; 97165-GO; 97535-GO; 99285; 99285-25; J1650; J1815; J2270; J2920; J2930; J7030; J7620; Q0144

== ENCOUNTER 2017-11-01 12:11 | Inpatient (IN) | payer OTHER ==
[2017-11-01 12:45] LABS: BASO % 0 % (0-3); EOS % 0 % (0-3); HEMATOCRIT 39.9 % (36.0-47.0); HEMOGLOBIN 13.4 g/dL (12.0-15.5); LYMPH # 0.4 x10^3/uL (1.0-4.8); LYMPH % 3 % (24-48); MEAN CORPUSCULAR HEMOGLOBIN 30 pg (25-35); MEAN CORPUSCULAR HGB CONC 34 g/dL (31-37); MEAN CORPUSCULAR VOLUME 89 fL (79-100); MONO # 0.3 x10^3/uL (0.0-1.1); MONO % 2 % (0-9); NEUT # 12.8 x10^3uL (1.8-7.7); NEUT % 95 % (31-73); PLATELET COUNT 454 x10^3/uL (140-400); RED BLOOD COUNT 4.51 x10^6/uL (3.50-5.40); RED CELL DISTRIBUTION WIDTH 15.1 % (11.5-14.5); WHITE BLOOD COUNT 13.4 x10^3/uL (4.0-11.0)
[2017-11-01 12:46] LABS: ADD MAN DIFF? YES
[2017-11-01 13:02] LABS: ANION GAP 6 (6-14); BLOOD UREA NITROGEN 18 mg/dL (7-20); BUN/CREATININE RATIO 20 (6-20); CALCIUM 8.8 mg/dL (8.5-10.1); CARBON DIOXIDE 32 mmol/L (21-32); CHLORIDE 100 mmol/L (98-107); CREATININE 0.9 mg/dL (0.6-1.0); GFR 63.7; GLUCOSE 100 mg/dL (70-99); POTASSIUM 4.5 mmol/L (3.5-5.1); SODIUM 138 mmol/L (136-145)
[2017-11-01] MEDS: IPRATRPIUM/ALBUTEROL 0.5/2.5MG 3 ML NEBU. NEB ×2 (13:04→19:36)
[2017-11-01] MEDS: methylPREDNISolone SOD SUCC PF 125 MG/2 ML VIAL. IV (13:06)
[2017-11-01 13:08] LABS: NT-PRO BNP 176 pg/mL (0-124)
[2017-11-01 13:08] LABS: ALBUMIN 3.4 g/dL (3.4-5.0); ALBUMIN/GLOBULIN RATIO 1.2 (1.0-1.7); ALK PHOS 68 U/L (46-116); ALT (SGPT) 28 U/L (14-59); AST (SGOT) 13 U/L (15-37); CKMB MASS 0.6 ng/mL (0.0-3.6); CREATINE KINASE 43 U/L (26-192); TOTAL BILIRUBIN 0.5 mg/dL (0.2-1.0); TOTAL PROTEIN 6.3 g/dL (6.4-8.2)
[2017-11-01 13:09] LABS: TROPONINI < 0.017 ng/mL (0.000-0.055)
[2017-11-01 13:11] LABS: BASE EXCESS ABG 5 mmol/L (-3-3); HCO3 ABG 29 mmol/L (21-28); PCO2 ABG 39 mmHg (35-46); PH ABG 7.48 (7.35-7.45); PO2 ABG 74 mmHg (65-108); PROTHROMBIN TIME PATIENT 13.1 SEC (11.7-14.0); SAT O2 ABG 94 % (92-99)
[2017-11-01 13:15] LABS: FIO2 ABG 21
[2017-11-01 13:16] LABS: % BANDS 1 % (0-9); % LYMPHS 2 % (24-48); % MONOS 4 % (0-10); % SEGS 93 % (35-66); PLT ESTIMATE ADEQUATE (ADEQUATE)
[2017-11-01] MEDS: fentaNYL PF VIAL 100 MCG/2 ML VIAL IV (15:16)
[2017-11-01] MEDS ORDERED: DEXTROSE 50% 25 GM / 50ML DISP.SYRIN. IV (16:45)
[2017-11-01 16:50] LABS: POC GLUCOSE 93 mg/dL (70-99)
[2017-11-01] MEDS: methylPREDNISolone SOD SUCC PF 40 MG/ML VIAL. IV ×2 (17:53→23:51)
[2017-11-01 20:19] LABS: POC GLUCOSE 195 mg/dL (70-99)
[2017-11-01] MEDS ORDERED: MORPHINE SULFATE 4 MG/ML DISP.SYRIN. IV (23:30)
[2017-11-01] MEDS: MORPHINE SULFATE 2 MG/ML DISP.SYRIN. IV (23:52)
[2017-11-02] MEDS: IPRATRPIUM/ALBUTEROL 0.5/2.5MG 3 ML NEBU. NEB ×3 (00:14→13:56)
[2017-11-02] MEDS: methylPREDNISolone SOD SUCC PF 40 MG/ML VIAL. IV ×2 (05:34→12:00)
[2017-11-02] MEDS: HYDROcodone/APAP 5/325MG 1 TAB TABLET PO (05:34)
[2017-11-02 08:04] LABS: POC GLUCOSE 168 mg/dL (70-99)
[2017-11-02 11:20] LABS: POC GLUCOSE 154 mg/dL (70-99)
== END 2017-11-02 15:00 | disposition home or self-care (01) | DRG 190 ==
LOC: ER 12:11 → 5 SOUTH 14:10
DX: J44.1 Chronic obstructive pulmonary disease with (acute) exacerbation (principal); J96.90 Respiratory failure, unspecified, unspecified whether with hypoxia or hypercapnia; M41.9 Scoliosis, unspecified; J98.4 Other disorders of lung; I25.10 Atherosclerotic heart disease of native coronary artery without angina pectoris; I10 Essential (primary) hypertension; E78.00 Pure hypercholesterolemia, unspecified; E10.9 Type 1 diabetes mellitus without complications; G89.29 Other chronic pain; F41.9 Anxiety disorder, unspecified; E78.5 Hyperlipidemia, unspecified; Z96.641 Presence of right artificial hip joint; Z72.0 Tobacco use; Z82.49 Family history of ischemic heart disease and other diseases of the circulatory system; Z90.5 Acquired absence of kidney; Z88.6 Allergy status to analgesic agent
CPT/HCPCS: 36415; 36600; 71045; 80053; 82553; 82805; 82962; 83880; 84484; 85007; 85025; 85610; 93005; 94640; 97161-GP; J2270; J2920; J2930; J3010; J7620

== ENCOUNTER 2018-01-18 14:28 | Inpatient (IN) | payer OTHER ==
[~2018-01-18] VITALS: Ht 157.5 cm; Wt 59.9 kg
[2018-01-18 07:00] VITALS: BP 114/74
[~2018-01-18 14:28] MED LIST changes: +ALBU2.5V5 NEB; +BENZ-8 PO; +COLC0.6T34 PO; +CYCL5TAB PO; +DOXY100T PO; -LOSA25TA4 PO; +LOSA25TA5 PO; -LOSA50TA6 PO; +LOSA50TA7 PO; +PRED-220 PO; +PRED20TA PO; +TIZA4TAB PO
[2018-01-18] MEDS ORDERED: ONDANSETRON PF 4 MG/2 ML VIAL. IV ONE (15:15)
[2018-01-18] MEDS ORDERED: IV NORMAL SALINE 500ML BAG 500 ML IV ONE (15:15)
[2018-01-18] MEDS ORDERED: fentaNYL PF VIAL 100 MCG/2 ML VIAL IV ONE ×2 (15:15→16:15)
--- NOTE | 2018-01-18 15:23 | PHYS DOC ---
Past Medical History Past Medical History: Anxiety, Asthma, COPD, Diabetes-Type I, High Cholesterol , Heart Disease, Hypertension Additional Past Medical Histor: SCOLIOSIS Past Surgical History: Hip Replacement Additional Past Surgical Histo: R hip, Upper L kidney removed, 5 back surgeries due to fall Alcohol Use: Occasionally Drug Use: None Adult General Chief Complaint Chief Complaint: NAUSEA/VOMITING/DIARRHA HPI HPI 62-year-old female presents to ER via EMS with complaints of nausea and vomiting this morning. Patient has had 4 episodes of vomiting today. Patient denies any diarrhea, fever, chest pain, or palpitations. Patient reports she feels fatigued denying any focal neuro deficits. Patient denies urinary symptoms. Patient denies her having any recent illness or GI symptoms. Pt denies any recent travel. Review of Systems Review of Systems Constitutional: Denies fever or chills. reports generalized fatigue Eyes: Denies change in visual acuity, redness, or eye pain [] HENT: Denies nasal congestion or sore throat [] Respiratory: Denies cough. Reports slight shortness of air Cardiovascular: Denies chest pain or palpitations GI: Denies bloody stools or diarrhea. Reports mid to lower abdomen pain with nausea and 4 episodes of vomiting : Denies dysuria or hematuria [] Musculoskeletal: Denies back pain or joint pain [] Integument: Denies rash, swelling or skin lesions [] Neurologic: Denies headache, focal weakness or sensory changes [] Endocrine: Denies polyuria or polydipsia [] All other systems were reviewed and found to be within normal limits, except as documented in this note. Current Medications Current Medications Current Medications Medications (Trade) Dose Ordered Sig/Thanh Start Time Stop Time Status Last Admin Dose Admin Fentanyl Citrate (Fentanyl 2ml Vial) 50 mcg 1X ONCE 01/18/18 16:15 01/18/18 16:16 DC 01/18/18 16:26 50 MCG Ondansetron HCl (Zofran) 4 mg 1X ONCE 01/18/18 15:15 01/18/18 15:18 DC 01/18/18 15:24 4 MG Sodium Chloride 500 ml @ 500 mls/hr 1X ONCE 01/18/18 15:15 01/18/18 16:14 DC 01/18/18 15:30 500 MLS/HR Allergies Allergies Allergies Coded Allergies Type Severity Reaction Last Updated Verified aspirin Allergy Intermediate 08/10/17 Yes Physical Exam Physical Exam Constitutional: Well developed, well nourished, no acute distress, non-toxic appearance.Fatigued appearance HENT: Normocephalic, atraumatic, bilateral ears normal, mucous membranes pink and dry, no oral exudates, nose normal. [] Eyes: PERRLA, no nystagmus, conjunctiva normal, no discharge. [] Neck: Normal range of motion, no tenderness, supple Cardiovascular:Heart rate regular rhythm, no murmur [] Lungs & Thorax: Bilateral breath sounds clear to auscultation [] Abdomen: Bowel sounds normal, soft/obese- no distention or rigidity, she is tenderness in mid to lower abdomen with no focal area or rebound tenderness, no masses, no pulsatile masses. [] Skin: Warm, dry, no erythema, no rash. [] Back: No tenderness, no CVA tenderness. [] Extremities: No tenderness, no cyanosis, no clubbing, ROM intact, no edema. [] Neurologic: Alert and oriented X 3, normal motor function, normal sensory function, no focal deficits noted. [] Psychologic: Affect normal, judgement normal, mood normal. [] Current Patient Data Vital Signs Vital Signs Date Time Temp Pulse Resp B/P (MAP) Pulse Ox O2 Delivery O2 Flow Rate FiO2 01/18/18 16:26 25 98 2.0 01/18/18 16:21 102 124/78 (93) Nasal Cannula 01/18/18 14:53 98.7 98.7 Lab Values Laboratory Tests Test 01/18/18 14:45 01/18/18 15:30 White Blood Count 8.7 x10^3/uL (4.0-11.0) Red Blood Count 4.52 x10^6/uL (3.50-5.40) Hemoglobin 13.8 g/dL (12.0-15.5) Hematocrit 41.0 % (36.0-47.0) Mean Corpuscular Volume 91 fL (79-100) Mean Corpuscular Hemoglobin 30 pg (25-35) Mean Corpuscular Hemoglobin Concent 34 g/dL (31-37) Red Cell Distribution Width 15.1 % (11.5-14.5) H Platelet Count 475 x10^3/uL (140-400) H Neutrophils (%) (Auto) 73 % (31-73) Lymphocytes (%) (Auto) 14 % (24-48) L Monocytes (%) (Auto) 11 % (0-9) H Eosinophils (%) (Auto) 1 % (0-3) Basophils (%) (Auto) 1 % (0-3) Neutrophils # (Auto) 6.4 x10^3uL (1.8-7.7) Lymphocytes # (Auto) 1.2 x10^3/uL (1.0-4.8) Monocytes # (Auto) 0.9 x10^3/uL (0.0-1.1) Eosinophils # (Auto) 0.1 x10^3/uL (0.0-0.7) Basophils # (Auto) 0.1 x10^3/uL (0.0-0.2) Sodium Level 141 mmol/L (136-145) Potassium Level 3.7 mmol/L (3.5-5.1) Chloride Level 102 mmol/L (98-107) Carbon Dioxide Level 29 mmol/L (21-32) Anion Gap 10 (6-14) Blood Urea Nitrogen 20 mg/dL (7-20) Creatinine 1.1 mg/dL (0.6-1.0) H Estimated GFR (Cockcroft-Gault) 50.5 BUN/Creatinine Ratio 18 (6-20) Glucose Level 108 mg/dL (70-99) H Calcium Level 9.7 mg/dL (8.5-10.1) Magnesium Level 2.0 mg/dL (1.8-2.4) Total Bilirubin 0.5 mg/dL (0.2-1.0) Aspartate Amino Transferase (AST) 24 U/L (15-37) Alanine Aminotransferase (ALT) 35 U/L (14-59) Alkaline Phosphatase 105 U/L (46-116) Troponin I Quantitative < 0.017 ng/mL (0.000-0.055) UI-Idy-W-Type Natriuretic Peptide 91 pg/mL (0-124) Total Protein 7.2 g/dL (6.4-8.2) Albumin 3.7 g/dL (3.4-5.0) Albumin/Globulin Ratio 1.1 (1.0-1.7) Lipase 58 U/L (73-393) L Urine Collection Type U cath Urine Color Dk yellow Urine Clarity Clear Urine pH 5.0 Urine Specific [place] >=1.030 Urine Protein 30 mg/dL (NEG-TRACE) Urine Glucose (UA) Negative mg/dL (NEG) Urine Ketones (Stick) 15 mg/dL (NEG) Urine Blood Negative (NEG) Urine Nitrite Negative (NEG) Urine Bilirubin Moderate (NEG) Urine Urobilinogen Dipstick 1.0 mg/dL (0.2 mg/dL) Urine Leukocyte Esterase Trace (NEG) Urine RBC 0 /HPF (0-2) Urine WBC Rare /HPF (0-4) Urine Squamous Epithelial Cells Few /LPF Urine Transitional Epithelial Cells Occ /LPF Urine Bacteria 0 /HPF (0-FEW) Urine Hyaline Casts Many /HPF Urine Mucus Marked /LPF Laboratory Tests 01/18/18 14:45 Laboratory Tests 01/18/18 14:45 EKG EKG [] Radiology/Procedures Radiology/Procedures [] Course & Med Decision Making Course & Med Decision Making Pertinent Labs and Imaging studies reviewed. (See chart for details) Patient reports no improvement in symptoms and is requesting to be admitted to hospital for further care and monitoring. Discussed pt's case with Dr. Salomon, hospitalist who was in the ER- will admit to their services for further care. CT abd/pelvis ordered and will be pending at time of admit. Dragon Disclaimer Dragon Disclaimer This electronic medical record was generated, in whole or in part, using a voice recognition dictation system. Departure Departure Impression: Primary Impression: Nausea and vomiting Additional Impression: Abdominal pain Disposition: ADMITTED INPATIENT Admitting Physician: Xie. Persaud Condition: STABLE Referrals: JACKIE REESE MD (PCP) Problem Qualifiers LISA BURNETT APRN Jan 18, 2018 15:23
[2018-01-18 15:24] LABS: BASO # 0.1 x10^3/uL (0.0-0.2); BASO % 1 % (0-3); EOS # 0.1 x10^3/uL (0.0-0.7); EOS % 1 % (0-3); HEMOGLOBIN 13.8 g/dL (12.0-15.5); LYMPH # 1.2 x10^3/uL (1.0-4.8); LYMPH % 14 % (24-48); MEAN CORPUSCULAR HEMOGLOBIN 30 pg (25-35); MEAN CORPUSCULAR HGB CONC 34 g/dL (31-37); MEAN CORPUSCULAR VOLUME 91 fL (79-100); MONO # 0.9 x10^3/uL (0.0-1.1); MONO % 11 % (0-9); NEUT # 6.4 x10^3uL (1.8-7.7); NEUT % 73 % (31-73); PLATELET COUNT 475 x10^3/uL (140-400); RED BLOOD COUNT 4.52 x10^6/uL (3.50-5.40); RED CELL DISTRIBUTION WIDTH 15.1 % (11.5-14.5); WHITE BLOOD COUNT 8.7 x10^3/uL (4.0-11.0)
--- NOTE | 2018-01-18 15:37 | EKG ---
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
[2018-01-18 15:38] LABS: CALCIUM 9.7 mg/dL (8.5-10.1); CREATININE 1.1 mg/dL (0.6-1.0); GFR 50.5; POTASSIUM 3.7 mmol/L (3.5-5.1)
[2018-01-18 15:41] LABS: BILIRUBIN,URINE MODERATE (NEG); CLARITY,URINE CLEAR; NITRITE,URINE NEGATIVE (NEG); PROTEIN,URINE 30 mg/dL (NEG-TRACE)
[2018-01-18 15:45] LABS: COLOR,URINE DK YELLOW
[2018-01-18 15:45] LABS: ALBUMIN 3.7 g/dL (3.4-5.0); ALBUMIN/GLOBULIN RATIO 1.1 (1.0-1.7); TOTAL BILIRUBIN 0.5 mg/dL (0.2-1.0); TOTAL PROTEIN 7.2 g/dL (6.4-8.2)
[2018-01-18 15:48] LABS: RBC,URINE 0 /HPF (0-2); WBC,URINE RARE /HPF (0-4)
[2018-01-18 15:49] LABS: BACTERIA,URINE 0 /HPF (0-FEW); HYALINE CASTS, URINE MANY /HPF; SQUAMOUS EPITHELIAL CELL,UR FEW /LPF
[2018-01-18] MEDS ORDERED: fentaNYL PF VIAL 100 MCG/2 ML VIAL IV PRN (16:30)
[2018-01-18] MEDS ORDERED: ONDANSETRON PF 4 MG/2 ML VIAL. IV PRN (16:30)
--- NOTE | 2018-01-18 16:41 | PDOC1 ---
History and Physical Date of Admission Date of Admission 01/18/18 Identification/Chief Complaint Chief Complaint abd pain, N/V Source Source: Chart review, Patient History of Present Illness History of Present Illness HPI HPI 62-year-old female presents to ER via EMS with complaints of nausea and vomiting , abd pain for 1 d. pt denies eating anything wrong. She said she had some GI issues before , but cannot tell what it is. She usually comes here every 2-3 months for copd. She said since last night, she started to have middle abd pain, intermittent, no radiation, 10/12, with 4 times N/V, non bloody, non margarita. BM normal, last night today, denies diarrhea. Denies fever, had chills, some sob, no chest pain or palpitation, was found HR 110s in ER. abd CT pending. PT WAS trying to tell me she got some new meds from card, but cannot tell me which one and she had diarrhea one month ago. she also said she was on blood thinner which i dont see in med rec. has h/o afib, currently sinus. Past Medical History Cardiovascular: CAD, CHF, HTN, Hyperlipidemia Pulmonary: Asthma, COPD CENTRAL NERVOUS SYSTEM: Vertigo, Other GI: GERD Heme/Onc: No pertinent hx Hepatobiliary: No pertinent hx Psych: No pertinent hx Rheumatologic: No pertinent hx Infectious disease: No pertinent hx Renal/: No pertinent hx Endocrine: Diabetes Past Surgical History Past Surgical History: Total hip replacement, Other Family History Family History: Cancer, Heart Disease, Hypertension Social History Smoke: No ALCOHOL: none Drugs: None Current Problem List Problem List Problems Medical Problems: (1) Abdominal pain Status: Acute (2) Nausea and vomiting Status: Acute Current Medications Current Medications Current Medications Medications (Trade) Dose Ordered Sig/Thanh Start Time Stop Time Status Last Admin Dose Admin Fentanyl Citrate (Fentanyl 2ml Vial) 25 mcg PRN Q3HRS PRN 01/18/18 16:30 01/19/18 16:29 Info (CONTRAST GIVEN -- Rx MONITORING) 1 each PRN DAILY PRN 01/18/18 16:45 01/20/18 16:44 Iohexol (Omnipaque 300 Mg/ml) 60 ml 1X ONCE 01/18/18 16:45 01/18/18 16:46 Ondansetron HCl (Zofran) 4 mg PRN Q8HRS PRN 01/18/18 16:30 01/19/18 16:29 Sodium Chloride 500 ml @ 500 mls/hr 1X ONCE 01/18/18 15:15 01/18/18 16:14 DC 01/18/18 15:30 500 MLS/HR Allergies Allergies Allergies Coded Allergies Type Severity Reaction Last Updated Verified aspirin Allergy Intermediate 08/10/17 Yes ROS Review of System CONSTITUTIONAL: No fever or chills EYES: No recent changes SKIN: No rash or itching CARDIOVASCULAR: No chest pain, syncope, palpitations, or edema RESPIRATORY: No SOB or cough GASTROINTESTINAL: No nausea, vomiting or abdominal pain NEUROLOGICAL: No headaches or weakness ENDOCRINE: No cold or heat intolerance GENITOURINARY: No urgency or frequency of urination MUSCULOSKELETAL: No back pain or joint pain LYMPHATICS: No enlarged lymph nodes PSYCHIATRIC: No anxiety or depression Physical Exam Physical Exam GEN.: looks fatigue, aaox3. uncomfortable with abd pain. HEENT: Head is normocephalic, atraumatic NECK: Supple. LUNGS: bl mild decreased bs, with mild crackles HEART: RRR, S1, S2 present. Peripheral pulses intact ABDOMEN: Soft, Positive bowel sounds. mild middle abd tenderness, possible guarding. EXTREMITIES: Without any cyanosis. NEUROLOGIC: Normal speech, normal tone PSYCHIATRIC: Normal affect, normal mood. SKIN: No ulcerations Vitals Vitals Vital Signs Date Time Temp Pulse Resp B/P (MAP) Pulse Ox O2 Delivery O2 Flow Rate FiO2 01/18/18 16:26 25 98 2.0 01/18/18 16:21 102 124/78 (93) Nasal Cannula 01/18/18 14:53 98.7 98.7 Labs Labs Laboratory Tests Test 01/18/18 14:45 01/18/18 15:30 White Blood Count 8.7 x10^3/uL (4.0-11.0) Red Blood Count 4.52 x10^6/uL (3.50-5.40) Hemoglobin 13.8 g/dL (12.0-15.5) Hematocrit 41.0 % (36.0-47.0) Mean Corpuscular Volume 91 fL (79-100) Mean Corpuscular Hemoglobin 30 pg (25-35) Mean Corpuscular Hemoglobin Concent 34 g/dL (31-37) Red Cell Distribution Width 15.1 % (11.5-14.5) Platelet Count 475 x10^3/uL (140-400) Neutrophils (%) (Auto) 73 % (31-73) Lymphocytes (%) (Auto) 14 % (24-48) Monocytes (%) (Auto) 11 % (0-9) Eosinophils (%) (Auto) 1 % (0-3) Basophils (%) (Auto) 1 % (0-3) Neutrophils # (Auto) 6.4 x10^3uL (1.8-7.7) Lymphocytes # (Auto) 1.2 x10^3/uL (1.0-4.8) Monocytes # (Auto) 0.9 x10^3/uL (0.0-1.1) Eosinophils # (Auto) 0.1 x10^3/uL (0.0-0.7) Basophils # (Auto) 0.1 x10^3/uL (0.0-0.2) Sodium Level 141 mmol/L (136-145) Potassium Level 3.7 mmol/L (3.5-5.1) Chloride Level 102 mmol/L (98-107) Carbon Dioxide Level 29 mmol/L (21-32) Anion Gap 10 (6-14) Blood Urea Nitrogen 20 mg/dL (7-20) Creatinine 1.1 mg/dL (0.6-1.0) Estimated GFR (Cockcroft-Gault) 50.5 BUN/Creatinine Ratio 18 (6-20) Glucose Level 108 mg/dL (70-99) Calcium Level 9.7 mg/dL (8.5-10.1) Magnesium Level 2.0 mg/dL (1.8-2.4) Total Bilirubin 0.5 mg/dL (0.2-1.0) Aspartate Amino Transf (AST/SGOT) 24 U/L (15-37) Alanine Aminotransferase (ALT/SGPT) 35 U/L (14-59) Alkaline Phosphatase 105 U/L (46-116) Troponin I Quantitative < 0.017 ng/mL (0.000-0.055) EF-Tcp-V-Type Natriuretic Peptide 91 pg/mL (0-124) Total Protein 7.2 g/dL (6.4-8.2) Albumin 3.7 g/dL (3.4-5.0) Albumin/Globulin Ratio 1.1 (1.0-1.7) Lipase 58 U/L (73-393) Urine Collection Type U cath Urine Color Dk yellow Urine Clarity Clear Urine pH 5.0 Urine Specific [place] >=1.030 Urine Protein 30 mg/dL (NEG-TRACE) Urine Glucose (UA) Negative mg/dL (NEG) Urine Ketones (Stick) 15 mg/dL (NEG) Urine Blood Negative (NEG) Urine Nitrite Negative (NEG) Urine Bilirubin Moderate (NEG) Urine Urobilinogen Dipstick 1.0 mg/dL (0.2 mg/dL) Urine Leukocyte Esterase Trace (NEG) Urine RBC 0 /HPF (0-2) Urine WBC Rare /HPF (0-4) Urine Squamous Epithelial Cells Few /LPF Urine Transitional Epithelial Cells Occ /LPF Urine Bacteria 0 /HPF (0-FEW) Urine Hyaline Casts Many /HPF Urine Mucus Marked /LPF Laboratory Tests Test 01/18/18 14:45 01/18/18 15:30 White Blood Count 8.7 x10^3/uL (4.0-11.0) Red Blood Count 4.52 x10^6/uL (3.50-5.40) Hemoglobin 13.8 g/dL (12.0-15.5) Hematocrit 41.0 % (36.0-47.0) Mean Corpuscular Volume 91 fL (79-100) Mean Corpuscular Hemoglobin 30 pg (25-35) Mean Corpuscular Hemoglobin Concent 34 g/dL (31-37) Red Cell Distribution Width 15.1 % (11.5-14.5) Platelet Count 475 x10^3/uL (140-400) Neutrophils (%) (Auto) 73 % (31-73) Lymphocytes (%) (Auto) 14 % (24-48) Monocytes (%) (Auto) 11 % (0-9) Eosinophils (%) (Auto) 1 % (0-3) Basophils (%) (Auto) 1 % (0-3) Neutrophils # (Auto) 6.4 x10^3uL (1.8-7.7) Lymphocytes # (Auto) 1.2 x10^3/uL (1.0-4.8) Monocytes # (Auto) 0.9 x10^3/uL (0.0-1.1) Eosinophils # (Auto) 0.1 x10^3/uL (0.0-0.7) Basophils # (Auto) 0.1 x10^3/uL (0.0-0.2) Sodium Level 141 mmol/L (136-145) Potassium Level 3.7 mmol/L (3.5-5.1) Chloride Level 102 mmol/L (98-107) Carbon Dioxide Level 29 mmol/L (21-32) Anion Gap 10 (6-14) Blood Urea Nitrogen 20 mg/dL (7-20) Creatinine 1.1 mg/dL (0.6-1.0) Estimated GFR (Cockcroft-Gault) 50.5 BUN/Creatinine Ratio 18 (6-20) Glucose Level 108 mg/dL (70-99) Calcium Level 9.7 mg/dL (8.5-10.1) Magnesium Level 2.0 mg/dL (1.8-2.4) Total Bilirubin 0.5 mg/dL (0.2-1.0) Aspartate Amino Transf (AST/SGOT) 24 U/L (15-37) Alanine Aminotransferase (ALT/SGPT) 35 U/L (14-59) Alkaline Phosphatase 105 U/L (46-116) Troponin I Quantitative < 0.017 ng/mL (0.000-0.055) XG-Bqg-P-Type Natriuretic Peptide 91 pg/mL (0-124) Total Protein 7.2 g/dL (6.4-8.2) Albumin 3.7 g/dL (3.4-5.0) Albumin/Globulin Ratio 1.1 (1.0-1.7) Lipase 58 U/L (73-393) Urine Collection Type U cath Urine Color Dk yellow Urine Clarity Clear Urine pH 5.0 Urine Specific [place] >=1.030 Urine Protein 30 mg/dL (NEG-TRACE) Urine Glucose (UA) Negative mg/dL (NEG) Urine Ketones (Stick) 15 mg/dL (NEG) Urine Blood Negative (NEG) Urine Nitrite Negative (NEG) Urine Bilirubin Moderate (NEG) Urine Urobilinogen Dipstick 1.0 mg/dL (0.2 mg/dL) Urine Leukocyte Esterase Trace (NEG) Urine RBC 0 /HPF (0-2) Urine WBC Rare /HPF (0-4) Urine Squamous Epithelial Cells Few /LPF Urine Transitional Epithelial Cells Occ /LPF Urine Bacteria 0 /HPF (0-FEW) Urine Hyaline Casts Many /HPF Urine Mucus Marked /LPF VTE Prophylaxis Ordered VTE Prophylaxis Devices: No VTE Pharmacological Prophylaxi: Yes Assessment/Plan Assessment/Plan abd pain with N/V, 2/2 gastritis likely COPD DM2, scoliosis, restrictive lung htn hld anxiety d/o NOS bronchitis previous smoker stable diastolic CHF ckd3 plan: abd ct pending resume home meds PAIN CONtrol , zofran iv prn, morphine iv prn gentle ivf ppi iv daily clear liquid diet for now dvt ppx PTot CONT copd MEDS CLAUDETTE QUIGLEY MD Jan 18, 2018 16:41
[2018-01-18] MEDS ORDERED: CONTRAST GIVEN. MC PRN (16:45)
[2018-01-18] MEDS ORDERED: ALBUTEROL SULFATE 2.5 MG/3 ML NEBU. NEB PRN (16:45)
[2018-01-18] MEDS ORDERED: IOHEXOL 300 MG/ML 100ML VIAL. IV ONE (16:45)
[2018-01-18] MEDS ORDERED: DOCUSATE SODIUM 100 MG CAPSULE. PO PRN (16:45)
[2018-01-18] MEDS: PANTOPRAZOLE IV PUSH 40 MG VIAL. IVP SCH (17:00)
--- NOTE | 2018-01-18 17:28 | RAD ---
CT study of the abdomen and pelvis with contrast Clinical indications: Abdominal pain. Nausea and vomiting. Nephrectomy and oophorectomy. TECHNIQUE: After IV infusion of 60 mL Omnipaque 300, helical CT scanning of the abdomen and pelvis was performed. No GI contrast was administered. This may decrease the sensitivity to detect GI tract pathology. PQRS compliance Statement One or more of the following individualized dose reduction techniques were utilized for this study: 1. Automated exposure control 2. Adjustment of the mA and/or kV according to patient size 3. Use of iterative reconstruction technique COMPARISON: CT study of the abdomen and pelvis dated March 24, 2017 and April 28, 2016. FINDINGS: Hepatic cysts are seen. The spleen is not enlarged. Diffuse fatty atrophy of the pancreas is evident. The gallbladder is surgically absent. No extrahepatic biliary ductal dilatation is seen. No adrenal mass is evident. Postsurgical changes of the lower pole of the left kidney are seen. Indeterminate subcentimeter hypodense nodules of the lower pole of the right kidney are seen. These most likely represent small cysts since they are stable since April 28, 2016. Otherwise no renal mass or hydronephrosis is seen on either side. No focal aneurysmal dilatation of the abdominal aorta is seen. No enlarged abdominal or pelvic lymphadenopathy is seen. The pelvis is obscured due to streaking artifact from right hip prosthesis. Urinary bladder is not abnormally distended. No obvious uterine mass is seen. No dominant ovarian cyst or mass is evident. However, the right adnexa is significantly obscured by the artifact. There is wall thickening of colon which may be seen with colitis. The terminal ileum is unremarkable. The appendix is not visualized but there are no secondary findings of appendicitis. No obstructive bowel pattern is evident. No free air or free fluid or mesenteric edema is seen. Scoliosis is seen. There is atelectasis of the medial aspect of the right lower lobe as a result. No osteolytic process is seen. IMPRESSION: Wall thickening of the colon which may be seen with colitis. No obstructive bowel pattern or free air or free fluid is evident. Electronically signed by: Amari Moncada MD (01/18/2018 5:25 PM) [facility]
[2018-01-18] MEDS: traMADol 50 MG TABLET PO PRN (18:43)
[2018-01-18 19:00] VITALS: BP 114/74
[2018-01-18] MEDS: ENOXAPARIN 40 MG/0.4 ML SYRINGE. SQ SCH (20:00)
[2018-01-18] MEDS: IV NORMAL SALINE 1000ML BAG 1,000 ML IV SCH (20:15)
[2018-01-18] MEDS: tiZANidine 4 MG TABLET. PO SCH (20:16)
[2018-01-18] MEDS: MONTELUKAST SODIUM 10 MG TABLET. PO SCH (20:16)
[2018-01-18] MEDS: SIMVASTATIN 10 MG TABLET PO SCH (20:16)
[2018-01-18] MEDS: MORPHINE SULFATE 2 MG/ML VIAL. IV PRN ×2 (20:17→23:56)
[2018-01-18] MEDS: BUDESONIDE 0.5 MG/2 ML NEBU. NEB SCH (20:53)
[2018-01-18] MEDS: IPRATRPIUM/ALBUTEROL 0.5/2.5MG 3 ML NEBU. NEB SCH (20:53)
[2018-01-18] MEDS ORDERED: DEXTROSE 50% 25 GM / 50ML DISP.SYRIN. IV PRN (21:45)
[2018-01-18 23:00] VITALS: BP 97/54
[2018-01-19 03:00] VITALS: BP 97/54
[2018-01-19 06:02] LABS: CALCIUM 8.9 mg/dL (8.5-10.1); CREATININE 0.7 mg/dL (0.6-1.0); GFR 85.1; POTASSIUM 3.9 mmol/L (3.5-5.1)
[2018-01-19 06:09] LABS: BASO % 1 % (0-3); EOS # 0.1 x10^3/uL (0.0-0.7); EOS % 2 % (0-3); HEMATOCRIT 35.6 % (36.0-47.0); HEMOGLOBIN 11.9 g/dL (12.0-15.5); LYMPH % 15 % (24-48); MEAN CORPUSCULAR HEMOGLOBIN 31 pg (25-35); MEAN CORPUSCULAR HGB CONC 33 g/dL (31-37); MEAN CORPUSCULAR VOLUME 92 fL (79-100); MONO # 0.8 x10^3/uL (0.0-1.1); MONO % 13 % (0-9); NEUT # 4.6 x10^3uL (1.8-7.7); NEUT % 70 % (31-73); PLATELET COUNT 392 x10^3/uL (140-400); RED BLOOD COUNT 3.89 x10^6/uL (3.50-5.40); RED CELL DISTRIBUTION WIDTH 15.1 % (11.5-14.5); WHITE BLOOD COUNT 6.6 x10^3/uL (4.0-11.0)
[2018-01-19 07:00] VITALS: BP 135/83
[2018-01-19] MEDS: BUDESONIDE 0.5 MG/2 ML NEBU. NEB SCH ×2 (07:55→20:40)
[2018-01-19] MEDS: IPRATRPIUM/ALBUTEROL 0.5/2.5MG 3 ML NEBU. NEB SCH ×4 (07:55→20:40)
[2018-01-19] MEDS: IV NORMAL SALINE 1000ML BAG 1,000 ML IV SCH ×2 (08:40→19:48)
[2018-01-19] MEDS: MORPHINE SULFATE 2 MG/ML VIAL. IV PRN ×2 (08:41→21:18)
[2018-01-19] MEDS: PANTOPRAZOLE IV PUSH 40 MG VIAL. IVP SCH (08:42)
[2018-01-19] MEDS ORDERED: NON FORMULARY ITEM (Pantoprazole Sodium (Protonix) 40 MG) PO SCH (09:00)
[2018-01-19] MEDS: tiZANidine 4 MG TABLET. PO SCH ×2 (09:12→19:38)
[2018-01-19] MEDS: OXYBUTYNIN CHLORIDE 5 MG TABLET PO SCH (09:12)
[2018-01-19] MEDS: LOSARTAN POTASSIUM 50 MG TABLET. PO SCH (09:13)
[2018-01-19 11:00] VITALS: BP 103/59
--- NOTE | 2018-01-19 11:35 | PDOC ---
PROGRESS NOTES Chief Complaint Chief Complaint Assessment/Plan abd pain with N/V, 2/2 gastritis likely COPD DM2, scoliosis, restrictive lung htn hld anxiety d/o NOS bronchitis previous smoker stable diastolic CHF ckd3 History of Present Illness History of Present Illness Pt seen and examined VSS Looks Nauseated Vitals Vitals Vital Signs Date Time Temp Pulse Resp B/P (MAP) Pulse Ox O2 Delivery O2 Flow Rate FiO2 01/19/18 09:14 98 Nasal Cannula 2.0 01/19/18 09:14 109 135/83 01/19/18 07:00 97.9 20 97.9 Physical Exam General: Alert, Cooperative, mild distress Heart: Regular rate, Normal S1 Lungs: Clear, Other Abdomen: Normal bowel sounds, Other (tender) Labs LABS Laboratory Tests Test 01/18/18 14:45 01/18/18 15:30 01/18/18 21:50 01/19/18 04:55 White Blood Count 8.7 x10^3/uL (4.0-11.0) 6.6 x10^3/uL (4.0-11.0) Red Blood Count 4.52 x10^6/uL (3.50-5.40) 3.89 x10^6/uL (3.50-5.40) Hemoglobin 13.8 g/dL (12.0-15.5) 11.9 g/dL (12.0-15.5) Hematocrit 41.0 % (36.0-47.0) 35.6 % (36.0-47.0) Mean Corpuscular Volume 91 fL (79-100) 92 fL (79-100) Mean Corpuscular Hemoglobin 30 pg (25-35) 31 pg (25-35) Mean Corpuscular Hemoglobin Concent 34 g/dL (31-37) 33 g/dL (31-37) Red Cell Distribution Width 15.1 % (11.5-14.5) 15.1 % (11.5-14.5) Platelet Count 475 x10^3/uL (140-400) 392 x10^3/uL (140-400) Neutrophils (%) (Auto) 73 % (31-73) 70 % (31-73) Lymphocytes (%) (Auto) 14 % (24-48) 15 % (24-48) Monocytes (%) (Auto) 11 % (0-9) 13 % (0-9) Eosinophils (%) (Auto) 1 % (0-3) 2 % (0-3) Basophils (%) (Auto) 1 % (0-3) 1 % (0-3) Neutrophils # (Auto) 6.4 x10^3uL (1.8-7.7) 4.6 x10^3uL (1.8-7.7) Lymphocytes # (Auto) 1.2 x10^3/uL (1.0-4.8) 1.0 x10^3/uL (1.0-4.8) Monocytes # (Auto) 0.9 x10^3/uL (0.0-1.1) 0.8 x10^3/uL (0.0-1.1) Eosinophils # (Auto) 0.1 x10^3/uL (0.0-0.7) 0.1 x10^3/uL (0.0-0.7) Basophils # (Auto) 0.1 x10^3/uL (0.0-0.2) 0.0 x10^3/uL (0.0-0.2) Sodium Level 141 mmol/L (136-145) 141 mmol/L (136-145) Potassium Level 3.7 mmol/L (3.5-5.1) 3.9 mmol/L (3.5-5.1) Chloride Level 102 mmol/L (98-107) 106 mmol/L (98-107) Carbon Dioxide Level 29 mmol/L (21-32) 29 mmol/L (21-32) Anion Gap 10 (6-14) 6 (6-14) Blood Urea Nitrogen 20 mg/dL (7-20) 15 mg/dL (7-20) Creatinine 1.1 mg/dL (0.6-1.0) 0.7 mg/dL (0.6-1.0) Estimated GFR (Cockcroft-Gault) 50.5 85.1 BUN/Creatinine Ratio 18 (6-20) Glucose Level 108 mg/dL (70-99) 76 mg/dL (70-99) Calcium Level 9.7 mg/dL (8.5-10.1) 8.9 mg/dL (8.5-10.1) Magnesium Level 2.0 mg/dL (1.8-2.4) Total Bilirubin 0.5 mg/dL (0.2-1.0) Aspartate Amino Transf (AST/SGOT) 24 U/L (15-37) Alanine Aminotransferase (ALT/SGPT) 35 U/L (14-59) Alkaline Phosphatase 105 U/L (46-116) Troponin I Quantitative < 0.017 ng/mL (0.000-0.055) RB-Tes-N-Type Natriuretic Peptide 91 pg/mL (0-124) Total Protein 7.2 g/dL (6.4-8.2) Albumin 3.7 g/dL (3.4-5.0) Albumin/Globulin Ratio 1.1 (1.0-1.7) Lipase 58 U/L (73-393) Urine Collection Type U cath Urine Color Dk yellow Urine Clarity Clear Urine pH 5.0 Urine Specific [place] >=1.030 Urine Protein 30 mg/dL (NEG-TRACE) Urine Glucose (UA) Negative mg/dL (NEG) Urine Ketones (Stick) 15 mg/dL (NEG) Urine Blood Negative (NEG) Urine Nitrite Negative (NEG) Urine Bilirubin Moderate (NEG) Urine Urobilinogen Dipstick 1.0 mg/dL (0.2 mg/dL) Urine Leukocyte Esterase Trace (NEG) Urine RBC 0 /HPF (0-2) Urine WBC Rare /HPF (0-4) Urine Squamous Epithelial Cells Few /LPF Urine Transitional Epithelial Cells Occ /LPF Urine Bacteria 0 /HPF (0-FEW) Urine Hyaline Casts Many /HPF Urine Mucus Marked /LPF Glucose (Fingerstick) 118 mg/dL (70-99) Review of Systems Review of Systems co weakness co nausea Assessment and Plan Assessmemt and Plan Problems Medical Problems: (1) Abdominal pain Status: Acute (2) Nausea and vomiting Status: Acute Assessment/Plan abd pain with N/V, 2/2 gastritis likely COPD DM2, scoliosis, restrictive lung htn hld anxiety d/o NOS bronchitis previous smoker stable diastolic CHF ckd3 plan: abd ct resume home meds Pain Control , zofran iv prn, morphine iv prn gentle ivf ppi iv daily clear liquid diet for now dvt ppx PTot CONT copd MEDS Comment Review of Relevant I have reviewed the following items jose angel (where applicable) has been applied. Labs Laboratory Tests Test 01/18/18 14:45 01/18/18 15:30 01/18/18 21:50 01/19/18 04:55 White Blood Count 8.7 x10^3/uL (4.0-11.0) 6.6 x10^3/uL (4.0-11.0) Red Blood Count 4.52 x10^6/uL (3.50-5.40) 3.89 x10^6/uL (3.50-5.40) Hemoglobin 13.8 g/dL (12.0-15.5) 11.9 g/dL (12.0-15.5) Hematocrit 41.0 % (36.0-47.0) 35.6 % (36.0-47.0) Mean Corpuscular Volume 91 fL (79-100) 92 fL (79-100) Mean Corpuscular Hemoglobin 30 pg (25-35) 31 pg (25-35) Mean Corpuscular Hemoglobin Concent 34 g/dL (31-37) 33 g/dL (31-37) Red Cell Distribution Width 15.1 % (11.5-14.5) 15.1 % (11.5-14.5) Platelet Count 475 x10^3/uL (140-400) 392 x10^3/uL (140-400) Neutrophils (%) (Auto) 73 % (31-73) 70 % (31-73) Lymphocytes (%) (Auto) 14 % (24-48) 15 % (24-48) Monocytes (%) (Auto) 11 % (0-9) 13 % (0-9) Eosinophils (%) (Auto) 1 % (0-3) 2 % (0-3) Basophils (%) (Auto) 1 % (0-3) 1 % (0-3) Neutrophils # (Auto) 6.4 x10^3uL (1.8-7.7) 4.6 x10^3uL (1.8-7.7) Lymphocytes # (Auto) 1.2 x10^3/uL (1.0-4.8) 1.0 x10^3/uL (1.0-4.8) Monocytes # (Auto) 0.9 x10^3/uL (0.0-1.1) 0.8 x10^3/uL (0.0-1.1) Eosinophils # (Auto) 0.1 x10^3/uL (0.0-0.7) 0.1 x10^3/uL (0.0-0.7) Basophils # (Auto) 0.1 x10^3/uL (0.0-0.2) 0.0 x10^3/uL (0.0-0.2) Sodium Level 141 mmol/L (136-145) 141 mmol/L (136-145) Potassium Level 3.7 mmol/L (3.5-5.1) 3.9 mmol/L (3.5-5.1) Chloride Level 102 mmol/L (98-107) 106 mmol/L (98-107) Carbon Dioxide Level 29 mmol/L (21-32) 29 mmol/L (21-32) Anion Gap 10 (6-14) 6 (6-14) Blood Urea Nitrogen 20 mg/dL (7-20) 15 mg/dL (7-20) Creatinine 1.1 mg/dL (0.6-1.0) 0.7 mg/dL (0.6-1.0) Estimated GFR (Cockcroft-Gault) 50.5 85.1 BUN/Creatinine Ratio 18 (6-20) Glucose Level 108 mg/dL (70-99) 76 mg/dL (70-99) Calcium Level 9.7 mg/dL (8.5-10.1) 8.9 mg/dL (8.5-10.1) Magnesium Level 2.0 mg/dL (1.8-2.4) Total Bilirubin 0.5 mg/dL (0.2-1.0) Aspartate Amino Transf (AST/SGOT) 24 U/L (15-37) Alanine Aminotransferase (ALT/SGPT) 35 U/L (14-59) Alkaline Phosphatase 105 U/L (46-116) Troponin I Quantitative < 0.017 ng/mL (0.000-0.055) IO-Luw-P-Type Natriuretic Peptide 91 pg/mL (0-124) Total Protein 7.2 g/dL (6.4-8.2) Albumin 3.7 g/dL (3.4-5.0) Albumin/Globulin Ratio 1.1 (1.0-1.7) Lipase 58 U/L (73-393) Urine Collection Type U cath Urine Color Dk yellow Urine Clarity Clear Urine pH 5.0 Urine Specific [place] >=1.030 Urine Protein 30 mg/dL (NEG-TRACE) Urine Glucose (UA) Negative mg/dL (NEG) Urine Ketones (Stick) 15 mg/dL (NEG) Urine Blood Negative (NEG) Urine Nitrite Negative (NEG) Urine Bilirubin Moderate (NEG) Urine Urobilinogen Dipstick 1.0 mg/dL (0.2 mg/dL) Urine Leukocyte Esterase Trace (NEG) Urine RBC 0 /HPF (0-2) Urine WBC Rare /HPF (0-4) Urine Squamous Epithelial Cells Few /LPF Urine Transitional Epithelial Cells Occ /LPF Urine Bacteria 0 /HPF (0-FEW) Urine Hyaline Casts Many /HPF Urine Mucus Marked /LPF Glucose (Fingerstick) 118 mg/dL (70-99) Laboratory Tests Test 01/18/18 14:45 01/18/18 15:30 01/18/18 21:50 01/19/18 04:55 White Blood Count 8.7 x10^3/uL (4.0-11.0) 6.6 x10^3/uL (4.0-11.0) Red Blood Count 4.52 x10^6/uL (3.50-5.40) 3.89 x10^6/uL (3.50-5.40) Hemoglobin 13.8 g/dL (12.0-15.5) 11.9 g/dL (12.0-15.5) Hematocrit 41.0 % (36.0-47.0) 35.6 % (36.0-47.0) Mean Corpuscular Volume 91 fL (79-100) 92 fL (79-100) Mean Corpuscular Hemoglobin 30 pg (25-35) 31 pg (25-35) Mean Corpuscular Hemoglobin Concent 34 g/dL (31-37) 33 g/dL (31-37) Red Cell Distribution Width 15.1 % (11.5-14.5) 15.1 % (11.5-14.5) Platelet Count 475 x10^3/uL (140-400) 392 x10^3/uL (140-400) Neutrophils (%) (Auto) 73 % (31-73) 70 % (31-73) Lymphocytes (%) (Auto) 14 % (24-48) 15 % (24-48) Monocytes (%) (Auto) 11 % (0-9) 13 % (0-9) Eosinophils (%) (Auto) 1 % (0-3) 2 % (0-3) Basophils (%) (Auto) 1 % (0-3) 1 % (0-3) Neutrophils # (Auto) 6.4 x10^3uL (1.8-7.7) 4.6 x10^3uL (1.8-7.7) Lymphocytes # (Auto) 1.2 x10^3/uL (1.0-4.8) 1.0 x10^3/uL (1.0-4.8) Monocytes # (Auto) 0.9 x10^3/uL (0.0-1.1) 0.8 x10^3/uL (0.0-1.1) Eosinophils # (Auto) 0.1 x10^3/uL (0.0-0.7) 0.1 x10^3/uL (0.0-0.7) Basophils # (Auto) 0.1 x10^3/uL (0.0-0.2) 0.0 x10^3/uL (0.0-0.2) Sodium Level 141 mmol/L (136-145) 141 mmol/L (136-145) Potassium Level 3.7 mmol/L (3.5-5.1) 3.9 mmol/L (3.5-5.1) Chloride Level 102 mmol/L (98-107) 106 mmol/L (98-107) Carbon Dioxide Level 29 mmol/L (21-32) 29 mmol/L (21-32) Anion Gap 10 (6-14) 6 (6-14) Blood Urea Nitrogen 20 mg/dL (7-20) 15 mg/dL (7-20) Creatinine 1.1 mg/dL (0.6-1.0) 0.7 mg/dL (0.6-1.0) Estimated GFR (Cockcroft-Gault) 50.5 85.1 BUN/Creatinine Ratio 18 (6-20) Glucose Level 108 mg/dL (70-99) 76 mg/dL (70-99) Calcium Level 9.7 mg/dL (8.5-10.1) 8.9 mg/dL (8.5-10.1) Magnesium Level 2.0 mg/dL (1.8-2.4) Total Bilirubin 0.5 mg/dL (0.2-1.0) Aspartate Amino Transf (AST/SGOT) 24 U/L (15-37) Alanine Aminotransferase (ALT/SGPT) 35 U/L (14-59) Alkaline Phosphatase 105 U/L (46-116) Troponin I Quantitative < 0.017 ng/mL (0.000-0.055) ZZ-Gwt-S-Type Natriuretic Peptide 91 pg/mL (0-124) Total Protein 7.2 g/dL (6.4-8.2) Albumin 3.7 g/dL (3.4-5.0) Albumin/Globulin Ratio 1.1 (1.0-1.7) Lipase 58 U/L (73-393) Urine Collection Type U cath Urine Color Dk yellow Urine Clarity Clear Urine pH 5.0 Urine Specific [place] >=1.030 Urine Protein 30 mg/dL (NEG-TRACE) Urine Glucose (UA) Negative mg/dL (NEG) Urine Ketones (Stick) 15 mg/dL (NEG) Urine Blood Negative (NEG) Urine Nitrite Negative (NEG) Urine Bilirubin Moderate (NEG) Urine Urobilinogen Dipstick 1.0 mg/dL (0.2 mg/dL) Urine Leukocyte Esterase Trace (NEG) Urine RBC 0 /HPF (0-2) Urine WBC Rare /HPF (0-4) Urine Squamous Epithelial Cells Few /LPF Urine Transitional Epithelial Cells Occ /LPF Urine Bacteria 0 /HPF (0-FEW) Urine Hyaline Casts Many /HPF Urine Mucus Marked /LPF Glucose (Fingerstick) 118 mg/dL (70-99) Medications Current Medications Sodium Chloride 500 ml @ 500 mls/hr 1X ONCE IV Last administered on at 15:30; Start 01/18/18 at 15:15; Stop 01/18/18 at 16:14; Status DC Ondansetron HCl (Zofran) 4 mg 1X ONCE IV Last administered on 01/18/18at 15:24 ; Start 01/18/18 at 15:15; Stop 01/18/18 at 15:18; Status DC Fentanyl Citrate (Fentanyl 2ml Vial) 25 mcg 1X ONCE IV Last administered on at 15:25; Start 01/18/18 at 15:15; Stop 01/18/18 at 15:18; Status DC Fentanyl Citrate (Fentanyl 2ml Vial) 50 mcg 1X ONCE IV Last administered on at 16:26; Start 01/18/18 at 16:15; Stop 01/18/18 at 16:16; Status DC Ondansetron HCl (Zofran) 4 mg PRN Q8HRS PRN IV NAUSEA/VOMITING; Start at 16:30; Stop 01/19/18 at 16:29 Fentanyl Citrate (Fentanyl 2ml Vial) 25 mcg PRN Q3HRS PRN IV PAIN; Start 01/18 at 16:30; Stop 01/19/18 at 16:29 Iohexol (Omnipaque 300 Mg/ml) 60 ml 1X ONCE IV Last administered on at 16:58; Start 01/18/18 at 16:45; Stop 01/18/18 at 16:46; Status DC Info (CONTRAST GIVEN -- Rx MONITORING) 1 each PRN DAILY PRN MC SEE COMMENTS; Start 01/18/18 at 16:45; Stop 01/20/18 at 16:44 Diltiazem HCl (Cardizem 24hr Cd) 120 mg DAILY PO Last administered on at 09:14; Start 01/19/18 at 09:00 Guaifenesin (Mucinex) 600 mg BID PO Last administered on 01/19/18at 09:12; Start 01/18/18 at 21:00 Losartan Potassium (Cozaar) 50 mg DAILY PO Last administered on 01/19/18at 09: 13; Start 01/19/18 at 09:00 Simvastatin (Zocor) 10 mg HS PO Last administered on 01/18/18at 20:16; Start 01/18/18 at 21:00 Budesonide (Pulmicort) 0.5 mg RTBID NEB Last administered on 01/19/18at 07:55; Start 01/18/18 at 20:00 Ergocalciferol (Vitamin D2) 50,000 unit WEEKLY PO ; Start 01/25/18 at 09:00 Montelukast Sodium (Singulair) 10 mg QHS PO Last administered on 01/18/18at 20: 16; Start 01/18/18 at 21:00 Oxybutynin Chloride (Ditropan) 5 mg DAILY PO Last administered on 01/19/18at 09 :12; Start 01/19/18 at 09:00 Non-Formulary Medication (Pantoprazole Sodium (Protonix)) 40 mg DAILY PO ; Start 01/19/18 at 09:00; Stop 01/19/18 at 09:00; Status DC Albuterol/ Ipratropium (Duoneb) 3 ml RTQID NEB Last administered on 01/19/18at 07:55; Start 01/18/18 at 20:00 Tizanidine HCl (Zanaflex) 4 mg BID PO Last administered on 01/19/18at 09:12; Start 01/18/18 at 21:00 Albuterol Sulfate (Ventolin Neb Soln) 2.5 mg PRN Q4HRS PRN NEB SHORTNESS OF BREATH Last administered on 01/18/18at 17:16; Start 01/18/18 at 16:45 Acetaminophen (Tylenol) 650 mg PRN Q6HRS PRN PO FEVER; Start 01/18/18 at 16:45 Ondansetron HCl (Zofran) 4 mg PRN Q6HRS PRN IV NAUSEA/VOMITING; Start at 16:45 Morphine Sulfate (Morphine Sulfate) 2 mg PRN Q2HR PRN IV MODERATE TO SEVERE PAIN Last administered on 01/19/18at 08:41; Start 01/18/18 at 16:45 Tramadol HCl (Ultram) 50 mg PRN Q6HRS PRN PO MILD TO MODERATE PAIN Last administered on 01/18/18at 18:43; Start 01/18/18 at 16:45 Docusate Sodium (Colace) 100 mg PRN DAILY PRN PO CONSTIPATION; Start 01/18/18 at 16:45 Enoxaparin Sodium (Lovenox 40mg Syringe) 40 mg Q24H SQ ; Start 01/18/18 at 20: 00 Pantoprazole Sodium (PROTONIX VIAL for IV PUSH) 40 mg DAILYAC IVP Last administered on 01/19/18at 08:42; Start 01/18/18 at 17:00 Sodium Chloride 1,000 ml @ 75 mls/hr [id number] IV Last administered on at 08:40; Start 01/18/18 at 17:00 Dextrose (Dextrose 50%-Water Syringe) 12.5 gm PRN Q15MIN PRN IV SEE COMMENTS; Start 01/18/18 at 21:45 Active Scripts Active Zofran (Ondansetron Hcl) 4 Mg Tablet 1 Tab PO Q8HRS PRN Reported Benzonatate 100 Mg Capsule 1 Cap PO TID Albuterol Sulfate Neb Soln (Albuterol Sulfate) 2.5 Mg/3 Ml Vial.neb 1 Vial NEB BID Tizanidine Hcl 4 Mg Tablet 1 Tab PO BID Albuterol Sulfate Neb Soln (Albuterol Sulfate) 2.5 Mg/3 Ml Vial.neb 1 Vial NEB PRN Q4HRS Mucinex (Guaifenesin) 600 Mg Tablet.er 1 Tab PO BID Glimepiride 1 Mg Tablet 1 Mg PO DAILY Symbicort 160-4.5 Mcg Inhaler (Budesonide/Formoterol Fumarate) 10.2 Gm Hfa.aer.ad 1 Puff IH BID Vitamin D (Cholecalciferol (Vitamin D3)) 50,000 Unit Capsule 50,000 Unit PO WEEKLY Ditropan Xl (Oxybutynin Chloride) 5 Mg Tab.er.24 5 Mg PO DAILY Losartan Potassium 50 Mg Tablet 50 Mg PO DAILY Simvastatin 10 Mg Tablet 10 Mg PO HS Proair Hfa Inhaler (Albuterol Sulfate) 8.5 Gm Hfa.aer.ad 17 Gm IH Q4HRS W/A PRN Spiriva (Tiotropium Enigma) 18 Mcg Cap.w.dev 18 Mcg IH DAILY Protonix (Pantoprazole Sodium) 40 Mg Granpkt.dr 40 Mg PO DAILY Singulair Tablet (Montelukast Sodium) 10 Mg Tablet 10 Mg PO HS Diltiazem 24HR Cd (Diltiazem Hcl) 120 Mg Cap.er.24h 120 Mg PO DAILY Vitals/I & O Vital Sign - Last 24 Hours 01/18/18 01/18/18 01/18/18 01/18/18 14:53 15:21 15:25 15:51 Temp 98.7 98.7 Pulse 100 102 98 Resp 20 20 21 22 B/P (MAP) 116/63 (80) 118/77 (91) 124/65 (84) Pulse Ox 92 94 99 O2 Delivery Room Air O2 Flow Rate 2.0 01/18/18 01/18/18 01/18/18 01/18/18 16:21 16:26 17:17 18:43 Pulse 102 Resp 22 25 B/P (MAP) 124/78 (93) Pulse Ox 92 98 99 99 O2 Delivery Nasal Cannula Nasal Cannula O2 Flow Rate 2.0 2.0 2.0 2.0 01/18/18 01/18/18 01/18/18 01/18/18 19:00 20:00 20:17 20:53 Temp 97.6 97.6 Pulse 104 Resp 17 16 B/P (MAP) 114/74 (87) Pulse Ox 93 98 O2 Delivery Room Air Nasal Cannula Nasal Cannula Nasal Cannula O2 Flow Rate 2.0 2.0 01/18/18 01/18/18 01/18/18 01/19/18 21:42 23:00 23:56 00:30 Temp 97.8 97.8 Pulse 105 Resp 17 17 16 B/P (MAP) 97/54 (68) Pulse Ox 95 98 O2 Delivery Room Air Room Air Nasal Cannula O2 Flow Rate 2.0 01/19/18 01/19/18 01/19/18 01/19/18 03:00 07:00 07:57 08:41 Temp 97.8 97.9 97.8 97.9 Pulse 105 109 Resp 16 20 B/P (MAP) 97/54 (68) 135/83 (100) Pulse Ox 98 98 O2 Delivery Room Air Nasal Cannula Nasal Cannula Nasal Cannula O2 Flow Rate 2.0 2.0 01/19/18 01/19/18 01/19/18 09:13 09:14 09:14 Pulse 109 109 B/P (MAP) 135/83 135/83 Pulse Ox 98 O2 Delivery Nasal Cannula O2 Flow Rate 2.0 Intake and Output 01/18/18 01/18/18 01/19/18 15:01 23:01 07:01 Intake Total 300 ml Balance 300 ml CASTLE,NIAL K III DO Jan 19, 2018 11:35
[2018-01-19 15:00] VITALS: BP 99/63
[2018-01-19] MEDS: ACETAMINOPHEN 325 MG TABLET. PO PRN ×3 (17:40→23:56)
[2018-01-19 19:00] VITALS: BP 110/69
[2018-01-19] MEDS: SIMVASTATIN 10 MG TABLET PO SCH (19:37)
[2018-01-19] MEDS: traMADol 50 MG TABLET PO PRN (19:38)
[2018-01-19] MEDS: MONTELUKAST SODIUM 10 MG TABLET. PO SCH (19:38)
[2018-01-19] MEDS: ONDANSETRON PF 4 MG/2 ML VIAL. IV PRN (19:42)
[2018-01-19] MEDS: ENOXAPARIN 40 MG/0.4 ML SYRINGE. SQ SCH (20:00)
[2018-01-19 23:00] VITALS: BP 103/58
[2018-01-20] MEDS ORDERED: PROCHLORPERAZINE 10 MG/2 ML VIAL. IV ONE (00:15)
[2018-01-20] MEDS ORDERED: KETOROLAC 30 MG/ML VIAL. IM PRN (00:15)
[2018-01-20] MEDS ORDERED: KETOROLAC 30 MG/ML VIAL. IV PRN (00:18)
[2018-01-20 03:00] VITALS: BP 101/60
[2018-01-20] MEDS ORDERED: HYDR-2762 PO (03:48)
[2018-01-20] MEDS: traMADol 50 MG TABLET PO PRN (03:48)
[2018-01-20] MEDS: MORPHINE SULFATE 2 MG/ML VIAL. IV PRN ×3 (04:22→20:41)
[2018-01-20 07:00] VITALS: BP 110/64
[2018-01-20] MEDS: IPRATRPIUM/ALBUTEROL 0.5/2.5MG 3 ML NEBU. NEB SCH ×4 (07:56→19:53)
[2018-01-20] MEDS: BUDESONIDE 0.5 MG/2 ML NEBU. NEB SCH ×2 (07:56→19:54)
[2018-01-20] MEDS: ONDANSETRON PF 4 MG/2 ML VIAL. IV PRN ×2 (08:07→18:24)
[2018-01-20] MEDS: PANTOPRAZOLE IV PUSH 40 MG VIAL. IVP SCH (08:07)
[2018-01-20] MEDS: IV NORMAL SALINE 1000ML BAG 1,000 ML IV SCH ×2 (09:39→23:44)
[2018-01-20] MEDS: OXYBUTYNIN CHLORIDE 5 MG TABLET PO SCH (10:40)
[2018-01-20] MEDS: tiZANidine 4 MG TABLET. PO SCH ×2 (10:40→20:42)
[2018-01-20] MEDS: LOSARTAN POTASSIUM 50 MG TABLET. PO SCH (10:41)
[2018-01-20 11:00] VITALS: BP 118/73
[2018-01-20] MEDS: oxyCODONE/APAP 5/325 1 TAB TABLET PO PRN ×2 (12:49→20:41)
[2018-01-20] MEDS: OSELTAMIVIR 75 MG CAPSULE PO SCH ×2 (12:49→20:41)
--- NOTE | 2018-01-20 14:19 | PDOC ---
Infectious Disease Note Vital Sign Vital Signs Vital Signs Date Time Temp Pulse Resp B/P (MAP) Pulse Ox O2 Delivery O2 Flow Rate FiO2 01/20/18 12:56 Nasal Cannula 2.0 01/20/18 12:49 18 01/20/18 11:00 96.4 101 118/73 (88) 96 96.4 Labs Micro IMPRESSION: Wall thickening of the colon which may be seen with colitis. No obstructive bowel pattern or free air or free fluid is evident. Objective Assessment Abd pain N/V ? Colitis on CT DM Plan Plan of Care No need for antimicrobials for now Obtain a Procalcitonin level Consult GI F/u temps and labs D/w Dr. Zhu Thank you # [id number] JAY MOROCHO MD Jan 20, 2018 14:19
--- NOTE | 2018-01-20 14:32 | PDOC ---
PROGRESS NOTES Chief Complaint Chief Complaint Assessment/Plan abd pain with N/V, 2/2 gastritis likely COPD DM2, scoliosis, restrictive lung htn hld anxiety d/o NOS bronchitis previous smoker stable diastolic CHF ckd3 History of Present Illness History of Present Illness weakness myalagia, complains of diffuse pain, will check flu swab Vitals Vitals Vital Signs Date Time Temp Pulse Resp B/P (MAP) Pulse Ox O2 Delivery O2 Flow Rate FiO2 01/20/18 13:49 18 Nasal Cannula 2.0 01/20/18 11:00 96.4 101 118/73 (88) 96 96.4 Physical Exam General: Alert, Cooperative, mild distress Heart: Regular rate, Normal S1 Lungs: Clear, Other Abdomen: Normal bowel sounds, Other (tender) Assessment and Plan Assessmemt and Plan Problems Medical Problems: (1) Abdominal pain Status: Acute (2) Nausea and vomiting Status: Acute Comment Review of Relevant I have reviewed the following items jose angel (where applicable) has been applied. Labs Laboratory Tests Test 01/18/18 14:45 01/18/18 15:30 01/18/18 21:50 01/19/18 04:55 White Blood Count 8.7 x10^3/uL (4.0-11.0) 6.6 x10^3/uL (4.0-11.0) Red Blood Count 4.52 x10^6/uL (3.50-5.40) 3.89 x10^6/uL (3.50-5.40) Hemoglobin 13.8 g/dL (12.0-15.5) 11.9 g/dL (12.0-15.5) Hematocrit 41.0 % (36.0-47.0) 35.6 % (36.0-47.0) Mean Corpuscular Volume 91 fL (79-100) 92 fL (79-100) Mean Corpuscular Hemoglobin 30 pg (25-35) 31 pg (25-35) Mean Corpuscular Hemoglobin Concent 34 g/dL (31-37) 33 g/dL (31-37) Red Cell Distribution Width 15.1 % (11.5-14.5) 15.1 % (11.5-14.5) Platelet Count 475 x10^3/uL (140-400) 392 x10^3/uL (140-400) Neutrophils (%) (Auto) 73 % (31-73) 70 % (31-73) Lymphocytes (%) (Auto) 14 % (24-48) 15 % (24-48) Monocytes (%) (Auto) 11 % (0-9) 13 % (0-9) Eosinophils (%) (Auto) 1 % (0-3) 2 % (0-3) Basophils (%) (Auto) 1 % (0-3) 1 % (0-3) Neutrophils # (Auto) 6.4 x10^3uL (1.8-7.7) 4.6 x10^3uL (1.8-7.7) Lymphocytes # (Auto) 1.2 x10^3/uL (1.0-4.8) 1.0 x10^3/uL (1.0-4.8) Monocytes # (Auto) 0.9 x10^3/uL (0.0-1.1) 0.8 x10^3/uL (0.0-1.1) Eosinophils # (Auto) 0.1 x10^3/uL (0.0-0.7) 0.1 x10^3/uL (0.0-0.7) Basophils # (Auto) 0.1 x10^3/uL (0.0-0.2) 0.0 x10^3/uL (0.0-0.2) Sodium Level 141 mmol/L (136-145) 141 mmol/L (136-145) Potassium Level 3.7 mmol/L (3.5-5.1) 3.9 mmol/L (3.5-5.1) Chloride Level 102 mmol/L (98-107) 106 mmol/L (98-107) Carbon Dioxide Level 29 mmol/L (21-32) 29 mmol/L (21-32) Anion Gap 10 (6-14) 6 (6-14) Blood Urea Nitrogen 20 mg/dL (7-20) 15 mg/dL (7-20) Creatinine 1.1 mg/dL (0.6-1.0) 0.7 mg/dL (0.6-1.0) Estimated GFR (Cockcroft-Gault) 50.5 85.1 BUN/Creatinine Ratio 18 (6-20) Glucose Level 108 mg/dL (70-99) 76 mg/dL (70-99) Calcium Level 9.7 mg/dL (8.5-10.1) 8.9 mg/dL (8.5-10.1) Magnesium Level 2.0 mg/dL (1.8-2.4) Total Bilirubin 0.5 mg/dL (0.2-1.0) Aspartate Amino Transf (AST/SGOT) 24 U/L (15-37) Alanine Aminotransferase (ALT/SGPT) 35 U/L (14-59) Alkaline Phosphatase 105 U/L (46-116) Troponin I Quantitative < 0.017 ng/mL (0.000-0.055) VI-Hcc-O-Type Natriuretic Peptide 91 pg/mL (0-124) Total Protein 7.2 g/dL (6.4-8.2) Albumin 3.7 g/dL (3.4-5.0) Albumin/Globulin Ratio 1.1 (1.0-1.7) Lipase 58 U/L (73-393) Urine Collection Type U cath Urine Color Dk yellow Urine Clarity Clear Urine pH 5.0 Urine Specific [place] >=1.030 Urine Protein 30 mg/dL (NEG-TRACE) Urine Glucose (UA) Negative mg/dL (NEG) Urine Ketones (Stick) 15 mg/dL (NEG) Urine Blood Negative (NEG) Urine Nitrite Negative (NEG) Urine Bilirubin Moderate (NEG) Urine Urobilinogen Dipstick 1.0 mg/dL (0.2 mg/dL) Urine Leukocyte Esterase Trace (NEG) Urine RBC 0 /HPF (0-2) Urine WBC Rare /HPF (0-4) Urine Squamous Epithelial Cells Few /LPF Urine Transitional Epithelial Cells Occ /LPF Urine Bacteria 0 /HPF (0-FEW) Urine Hyaline Casts Many /HPF Urine Mucus Marked /LPF Glucose (Fingerstick) 118 mg/dL (70-99) Medications Current Medications Sodium Chloride 500 ml @ 500 mls/hr 1X ONCE IV Last administered on at 15:30; Start 01/18/18 at 15:15; Stop 01/18/18 at 16:14; Status DC Ondansetron HCl (Zofran) 4 mg 1X ONCE IV Last administered on 01/18/18at 15:24 ; Start 01/18/18 at 15:15; Stop 01/18/18 at 15:18; Status DC Fentanyl Citrate (Fentanyl 2ml Vial) 25 mcg 1X ONCE IV Last administered on at 15:25; Start 01/18/18 at 15:15; Stop 01/18/18 at 15:18; Status DC Fentanyl Citrate (Fentanyl 2ml Vial) 50 mcg 1X ONCE IV Last administered on at 16:26; Start 01/18/18 at 16:15; Stop 01/18/18 at 16:16; Status DC Ondansetron HCl (Zofran) 4 mg PRN Q8HRS PRN IV NAUSEA/VOMITING; Start at 16:30; Stop 01/19/18 at 16:29; Status DC Fentanyl Citrate (Fentanyl 2ml Vial) 25 mcg PRN Q3HRS PRN IV PAIN; Start 01/18 at 16:30; Stop 01/19/18 at 16:29; Status DC Iohexol (Omnipaque 300 Mg/ml) 60 ml 1X ONCE IV Last administered on at 16:58; Start 01/18/18 at 16:45; Stop 01/18/18 at 16:46; Status DC Info (CONTRAST GIVEN -- Rx MONITORING) 1 each PRN DAILY PRN MC SEE COMMENTS; Start 01/18/18 at 16:45; Stop 01/20/18 at 16:44 Diltiazem HCl (Cardizem 24hr Cd) 120 mg DAILY PO Last administered on at 10:40; Start 01/19/18 at 09:00 Guaifenesin (Mucinex) 600 mg BID PO Last administered on 01/20/18at 10:40; Start 01/18/18 at 21:00 Losartan Potassium (Cozaar) 50 mg DAILY PO Last administered on 01/20/18at 10: 41; Start 01/19/18 at 09:00 Simvastatin (Zocor) 10 mg HS PO Last administered on 01/19/18at 19:37; Start 01/18/18 at 21:00 Budesonide (Pulmicort) 0.5 mg RTBID NEB Last administered on 01/20/18at 07:56; Start 01/18/18 at 20:00 Ergocalciferol (Vitamin D2) 50,000 unit WEEKLY PO ; Start 01/25/18 at 09:00 Montelukast Sodium (Singulair) 10 mg QHS PO Last administered on 01/19/18at 19: 38; Start 01/18/18 at 21:00 Oxybutynin Chloride (Ditropan) 5 mg DAILY PO Last administered on 01/20/18at 10 :40; Start 01/19/18 at 09:00 Non-Formulary Medication (Pantoprazole Sodium (Protonix)) 40 mg DAILY PO ; Start 01/19/18 at 09:00; Stop 01/19/18 at 09:00; Status DC Albuterol/ Ipratropium (Duoneb) 3 ml RTQID NEB Last administered on 01/20/18at 12:56; Start 01/18/18 at 20:00 Tizanidine HCl (Zanaflex) 4 mg BID PO Last administered on 01/20/18at 10:40; Start 01/18/18 at 21:00 Albuterol Sulfate (Ventolin Neb Soln) 2.5 mg PRN Q4HRS PRN NEB SHORTNESS OF BREATH Last administered on 01/18/18at 17:16; Start 01/18/18 at 16:45 Acetaminophen (Tylenol) 650 mg PRN Q6HRS PRN PO FEVER Last administered on at 17:40; Start 01/18/18 at 16:45 Ondansetron HCl (Zofran) 4 mg PRN Q6HRS PRN IV NAUSEA/VOMITING Last administered on 01/20/18at 08:07; Start 01/18/18 at 16:45 Morphine Sulfate (Morphine Sulfate) 2 mg PRN Q2HR PRN IV MODERATE TO SEVERE PAIN Last administered on 01/20/18at 09:34; Start 01/18/18 at 16:45 Tramadol HCl (Ultram) 50 mg PRN Q6HRS PRN PO MILD TO MODERATE PAIN Last administered on 01/20/18at 03:48; Start 01/18/18 at 16:45 Docusate Sodium (Colace) 100 mg PRN DAILY PRN PO CONSTIPATION; Start 01/18/18 at 16:45 Enoxaparin Sodium (Lovenox 40mg Syringe) 40 mg Q24H SQ ; Start 01/18/18 at 20: 00 Pantoprazole Sodium (PROTONIX VIAL for IV PUSH) 40 mg DAILYAC IVP Last administered on 01/20/18at 08:07; Start 01/18/18 at 17:00 Sodium Chloride 1,000 ml @ 75 mls/hr [id number] IV Last administered on at 09:39; Start 01/18/18 at 17:00 Dextrose (Dextrose 50%-Water Syringe) 12.5 gm PRN Q15MIN PRN IV SEE COMMENTS; Start 01/18/18 at 21:45 Ketorolac Tromethamine (Toradol 30mg Vial) 30 mg PRN 1X PRN IM headache; Start 01/20/18 at 00:15; Stop 01/20/18 at 00:19; Status DC Prochlorperazine Edisylate (Compazine) 10 mg 1X ONCE IV Last administered on 01/20/18at 00:19; Start 01/20/18 at 00:15; Stop 01/20/18 at 00:16; Status DC Ketorolac Tromethamine (Toradol 30mg Vial) 30 mg PRN 1X PRN IV headache Last administered on 01/20/18at 00:29; Start 01/20/18 at 00:18; Stop 01/25/18 at 00 :17 Oseltamivir Phosphate (Tamiflu) 75 mg BID PO Last administered on 01/20/18at 12 :49; Start 01/20/18 at 13:00; Stop 01/25/18 at 12:59 Oxycodone/ Acetaminophen (Percocet 5/325) 1 tab PRN Q4HRS PRN PO SEVERE PAIN Last administered on 01/20/18at 12:49; Start 01/20/18 at 12:45 Active Scripts Active Zofran (Ondansetron Hcl) 4 Mg Tablet 1 Tab PO Q8HRS PRN Reported Hydrocodone-Apap 7.5-325 (Hydrocodone Bit/Acetaminophen) 1 Each Tablet 1 Tab PO PRN Q6HRS PRN Benzonatate 100 Mg Capsule 1 Cap PO TID Albuterol Sulfate Neb Soln (Albuterol Sulfate) 2.5 Mg/3 Ml Vial.neb 1 Vial NEB BID Tizanidine Hcl 4 Mg Tablet 1 Tab PO BID Albuterol Sulfate Neb Soln (Albuterol Sulfate) 2.5 Mg/3 Ml Vial.neb 1 Vial NEB PRN Q4HRS Mucinex (Guaifenesin) 600 Mg Tablet.er 1 Tab PO BID Glimepiride 1 Mg Tablet 1 Mg PO DAILY Symbicort 160-4.5 Mcg Inhaler (Budesonide/Formoterol Fumarate) 10.2 Gm Hfa.aer.ad 1 Puff IH BID Vitamin D (Cholecalciferol (Vitamin D3)) 50,000 Unit Capsule 50,000 Unit PO WEEKLY Ditropan Xl (Oxybutynin Chloride) 5 Mg Tab.er.24 5 Mg PO DAILY Losartan Potassium 50 Mg Tablet 50 Mg PO DAILY Simvastatin 10 Mg Tablet 10 Mg PO HS Proair Hfa Inhaler (Albuterol Sulfate) 8.5 Gm Hfa.aer.ad 17 Gm IH Q4HRS W/A PRN Spiriva (Tiotropium Antonito) 18 Mcg Cap.w.dev 18 Mcg IH DAILY Protonix (Pantoprazole Sodium) 40 Mg Granpkt.dr 40 Mg PO DAILY Singulair Tablet (Montelukast Sodium) 10 Mg Tablet 10 Mg PO HS Diltiazem 24HR Cd (Diltiazem Hcl) 120 Mg Cap.er.24h 120 Mg PO DAILY Vitals/I & O Vital Sign - Last 24 Hours 01/19/18 01/19/18 01/19/18 01/19/18 15:00 16:19 19:00 19:38 Temp 96.1 98.1 96.1 98.1 Pulse 95 106 Resp 18 18 18 B/P (MAP) 99/63 (75) 110/69 (83) Pulse Ox 95 100 O2 Delivery Room Air Nasal Cannula Nasal Cannula Nasal Cannula O2 Flow Rate 2.0 2.0 2.0 01/19/18 01/19/18 01/19/18 01/19/18 20:00 20:40 21:18 23:00 Temp 97.5 97.5 Pulse 100 Resp 18 18 B/P (MAP) 103/58 (73) Pulse Ox 100 97 O2 Delivery Nasal Cannula Nasal Cannula Nasal Cannula Nasal Cannula O2 Flow Rate 2.0 2.0 2.0 2.0 01/20/18 01/20/18 01/20/18 01/20/18 03:00 03:48 04:22 07:00 Temp 98.8 97.9 98.8 97.9 Pulse 105 98 Resp 18 18 18 18 B/P (MAP) 101/60 (74) 110/64 (79) Pulse Ox 96 96 O2 Delivery Nasal Cannula Nasal Cannula Nasal Cannula Nasal Cannula O2 Flow Rate 2.0 2.0 2.0 01/20/18 01/20/18 01/20/18 01/20/18 07:57 08:00 09:34 10:04 Resp 17 17 Pulse Ox 95 96 O2 Delivery Nasal Cannula Nasal Cannula Nasal Cannula Nasal Cannula O2 Flow Rate 2.0 2.0 2.0 2.0 01/20/18 01/20/18 01/20/18 01/20/18 10:40 10:41 11:00 12:49 Temp 96.4 96.4 Pulse 98 98 101 Resp 18 18 B/P (MAP) 110/64 110/64 118/73 (88) Pulse Ox 96 O2 Delivery Nasal Cannula Nasal Cannula O2 Flow Rate 2.0 01/20/18 01/20/18 12:56 13:49 Resp 18 O2 Delivery Nasal Cannula Nasal Cannula O2 Flow Rate 2.0 2.0 Intake and Output 01/19/18 01/19/18 01/20/18 15:00 23:00 07:00 Intake Total 100 ml 675 ml Output Total 0 ml Balance 100 ml 675 ml WHIT RODRIGUEZ MD Jan 20, 2018 14:32
[2018-01-20 15:00] VITALS: BP 112/62
[2018-01-20 15:02] LABS: INFLUENZA A PATIENT NEGATIVE (NEGATIVE); INFLUENZA B PATIENT NEGATIVE (NEGATIVE)
--- NOTE | 2018-01-20 15:10 | PDOC2 ---
GI CONSULT Reason For Consult: ?colitis vs paresis HPI: HPI: 62 y/o female who we have seen in the past. She is currently not feeling well and is drowsy making history difficult. She tells me her daughter brought her an egg and sausage biscuit from [employer] and she ate it last night. Then she did the laundry and then started vomiting. At first she denies abdominal pain but then tells me she has abd pain (can't really specify location) about twice monthly. She denies recurrent vomiting though she has had several admission for similar symptoms. She says she had "diarrhea" last night - describes a "regular" stool and then a "mushy" one. She still feels sick at this time w/ nausea and middle abdominal pain that comes and goes. D/w Dr. Esposito and RN - has requested pain meds throughout the day. She has had 10 CTs since 2013 - several, including the one performed in the ER yesterday, have noted wall thickening in the left colon. CT also noted hepatic cysts and fatty atrophy of pancreas. S/p cholecystectomy. More than one colonoscopy in the past - cannot view results but the last one I believe was performed in [address] Rebecca Muhammad. Old records also mention h/o duodenal adenoma though it's unclear when her last EGD was performed. She takes a daily prescription medication for her stomach (?reflux) that starts with a "p." She also takes another prescription medication on a PRN basis for abdominal pain. She denies dysphagia, hematemesis, hematochezia, melena, and weight loss. Says no chronic issues w/ diarrhea or constipation. She has a h/o diabetes - can't tell me what glucose normally runs at home or what her last A1c was (5.5 here in 2017). PMH: PMH: CHF, HTN, HLD, DM, asthma/COPD, IBS, vertigo, OA, scoliosis, neurofibromatosis , right hip replacement, partial left nephrectomy, cholecystectomy, ? appendectomy, left oophorectomy, back surgeries FH: Family History: No pertinent hx Social History: Smoke: No ALCOHOL: none Drugs: None ROS: GEN: Denies fevers, chills, sweats HEENT: Denies blurred vision, sore throat CV: Denies chest pain RESP: Denies shortness of air, cough GI: Per HPI : Denies hematuria, dysuria ENDO: Denies weight changes NEURO: Denies confusion, dizziness MSK: Denies weakness, joint pain/swelling SKIN: Denies jaundice, pruritus Vitals: Vitals: Vital Signs Date Time Temp Pulse Resp B/P (MAP) Pulse Ox O2 Delivery O2 Flow Rate FiO2 01/20/18 13:49 18 Nasal Cannula 2.0 01/20/18 11:00 96.4 101 118/73 (88) 96 96.4 Labs: Labs: Laboratory Tests Test 01/20/18 14:20 Influenza Type A Antigen Negative Influenza Type B Antigen Negative Allergies: Coded Allergies: aspirin (Verified Allergy, Intermediate, 08/10/17) TRIGGER ASTHMA Medications: Current Medications Medications (Trade) Dose Ordered Sig/Thanh Route PRN Reason Start Time Stop Time Status Last Admin Dose Admin Prochlorperazine Edisylate (Compazine) 10 mg 1X ONCE IV 01/20/18 00:15 01/20/18 00:16 DC 01/20/18 00:19 Ketorolac Tromethamine (Toradol 30mg Vial) 30 mg PRN 1X PRN IV headache 01/20/18 00:18 01/25/18 00:17 01/20/18 00:29 Oseltamivir Phosphate (Tamiflu) 75 mg BID PO 01/20/18 13:00 01/25/18 12:59 01/20/18 12:49 Oxycodone/ Acetaminophen (Percocet 5/325) 1 tab PRN Q4HRS PRN PO SEVERE PAIN 01/20/18 12:45 01/20/18 12:49 Imaging: Imaging: CT A/P Hepatic cysts are seen. The spleen is not enlarged. Diffuse fatty atrophy of the pancreas is evident. The gallbladder is surgically absent. No extrahepatic biliary ductal dilatation is seen. No adrenal mass is evident. Postsurgical changes of the lower pole of the left kidney are seen. Indeterminate subcentimeter hypodense nodules of the lower pole of the right kidney are seen. These most likely represent small cysts since they are stable since April 28, 2016. Otherwise no renal mass or hydronephrosis is seen on either side. No focal aneurysmal dilatation of the abdominal aorta is seen. No enlarged abdominal or pelvic lymphadenopathy is seen. The pelvis is obscured due to streaking artifact from right hip prosthesis. Urinary bladder is not abnormally distended. No obvious uterine mass is seen. No dominant ovarian cyst or mass is evident. However, the right adnexa is significantly obscured by the artifact. There is wall thickening of colon which may be seen with colitis. The terminal ileum is unremarkable. The appendix is not visualized but there are no secondary findings of appendicitis. No obstructive bowel pattern is evident. No free air or free fluid or mesenteric edema is seen. Scoliosis is seen. There is atelectasis of the medial aspect of the right lower lobe as a result. No osteolytic process is seen. IMPRESSION: Wall thickening of the colon which may be seen with colitis. No obstructive bowel pattern or free air or free fluid is evident. PE: GEN: looks uncomfortable HEENT: Atraumatic, keeps eyes closed for the most part LUNGS: CTAB HEART: RRR ABD: NABS, S/ND, not particularly tender EXTREMITY: No edema SKIN: No rashes, no jaundice NEURO/PSYCH: A & O 3 - very drowsy A/P: A/P: N/v, abd pain - recurrent/chronic ?diarrhea - prior to admission Abnormal CT - several CTs during the past 4 years have noted "wall thickening" in left colon ?GERD ?h/o duodenal adenoma CRC screen - last colonoscopy 2013? S/p cholecystectomy -- Returned to see w/ Dr. Wells - start w/ GES. If unremarkable, would proceed w / SBS and possibly colonoscopy. Will also ask surgery to see. Has IV PPI ordered - can change to PO when reliably eating. Monitor stools. JOY NIEVES Jan 20, 2018 15:10
[2018-01-20 19:00] VITALS: BP 123/70
[2018-01-20] MEDS: SIMVASTATIN 10 MG TABLET PO SCH (20:41)
[2018-01-20] MEDS: MONTELUKAST SODIUM 10 MG TABLET. PO SCH (20:41)
[2018-01-20] MEDS: ENOXAPARIN 40 MG/0.4 ML SYRINGE. SQ SCH (20:42)
[2018-01-20 23:03] VITALS: BP 117/76
--- NOTE | 2018-01-21 00:22 | CONS ---
DATE OF CONSULTATION: 01/20/2018 ROOM: 521. REQUESTING PHYSICIAN: Dr. Concepcion. REASON FOR CONSULTATION: Flu-like illness. HISTORY OF PRESENT ILLNESS: The patient has a 62-year-old longstanding history of diabetes, although she cannot quantify how long she has had diabetes. She has had complications with nausea and vomiting in the past. She presented to the Emergency Room with complaints of nausea, vomiting, abdominal pain for approximately 3-4 days. She lives with her who has not been sick. Denies eating any bad food, but she began to have some abdominal pain and had vomited x 4 with no blood. She had a bowel movement with no blood in it. No gross diarrhea. Denies any dysuria, frequency or urgency and states that she has felt cold and weak, but not having any gross fevers and no gross headaches. She presented to [facility] Emergency Room on . She had a white count of 8.7, 73 segs and 14 lymphs. Urinalysis was essentially clean. She underwent an abdominal and pelvis CT scan that showed some wall thickening of the colon, which may be seen with colitis, nonobstructive bowel pattern or free air. Currently, she is lying in bed. Denies any current pain, but she has been receiving some morphine. She states she feels sick in general. PAST MEDICAL HISTORY: Positive for previous colitis seen on CAT scan back in 03/2017. She has CAD, CHF, hypertension, hyperlipidemia, asthma, COPD, vertigo, diabetes. PAST SURGICAL HISTORY: Positive for total hip replacement. REVIEW OF SYSTEMS: Otherwise negative except for as mentioned above. FAMILY HISTORY: Positive for cancer, heart disease, hypertension. She denies any diabetes in the family. SOCIAL HISTORY: No tobacco, no alcohol. She has no pets, no birds, no fish. Does not do a lot of outdoor activities and is . CURRENT MEDICATIONS: Include albuterol, Pulmicort, diltiazem, Colace, Lovenox, fentanyl, guaifenesin, losartan, Singulair, Ditropan, Protonix, Zocor, Zanaflex, Ultram. PHYSICAL EXAMINATION: VITAL SIGNS: She has been afebrile since her presentation, currently 96.4, pulse 101, respirations 18, blood pressure 118/73, satting 96% on 2 liters. CONSTITUTIONAL: She is alert. She looks tired. She is in no acute distress. HEENT: Pupils equal and reactive. Oral cavity, pharynx is dry, she has some questionable dentition. NECK: Supple. LUNGS: Decreased in the bases. HEART: S1, S2. ABDOMEN: Mildly protuberant, soft. No guarding, no rebound. Some decreased bowel sounds. EXTREMITIES: Without clubbing, cyanosis nor gross edema. SKIN: Warm to touch without signs of rash. PSYCHIATRIC: Affect is flat. LABORATORY DATA: White count 6.6, hemoglobin 11.9, platelets of 392, neutrophils 70, lymphs 15, monos 13. Creatinine 0.7, was 1.1 on arrival. Normal liver function study tests. Lipase was 58. IMPRESSION: 1. Abdominal pain. 2. Nausea and vomiting. 3. Colitis on CT scan. 4. Diabetes. RECOMMENDATIONS: For now, there is no need for any antimicrobials. She is afebrile. White blood cell count is normal. Obtain a procalcitonin level. We will consult GI. May need gastric emptying or other type of evaluation. We will follow up labs and temps. This was discussed with Dr. Zhu. Also discussed with nursing. Thank you for allowing me to participate in the patient's care. Should you have any questions, please do not hesitate to contact me. JAY MOROCHO MD DR: ISELA/jose JOB#: [id number] / [id number]
[2018-01-21] MEDS: oxyCODONE/APAP 5/325 1 TAB TABLET PO PRN (02:09)
[2018-01-21 03:08] VITALS: BP 115/71
[2018-01-21] MEDS: ONDANSETRON PF 4 MG/2 ML VIAL. IV PRN ×2 (03:39→10:59)
[2018-01-21 07:00] VITALS: BP 130/78
[2018-01-21] MEDS: BUDESONIDE 0.5 MG/2 ML NEBU. NEB SCH ×2 (07:22→19:43)
[2018-01-21] MEDS: IPRATRPIUM/ALBUTEROL 0.5/2.5MG 3 ML NEBU. NEB SCH ×4 (07:22→19:43)
[2018-01-21] MEDS: PANTOPRAZOLE IV PUSH 40 MG VIAL. IVP SCH (08:24)
[2018-01-21] MEDS: tiZANidine 4 MG TABLET. PO SCH ×2 (09:00→21:25)
[2018-01-21] MEDS: OSELTAMIVIR 75 MG CAPSULE PO SCH (09:00)
--- NOTE | 2018-01-21 10:42 | PDOC ---
PROGRESS NOTES Chief Complaint Chief Complaint Assessment/Plan abd pain with N/V, 2/[address] showed possible colitis COPD DM2, scoliosis, restrictive lung htn hld anxiety d/o NOS bronchitis previous smoker stable diastolic CHF ckd3 acute resp failure with hypoxia plan: fu with gi, id neg Flu, but ID started tamiflu bid, defer to ID if need dc it clear liquid diet no abx ivf GES today dvt ppx protonix iv daily for now PTOT duoneb, NC as needed. History of Present Illness History of Present Illness ROS: no fever, chills, sob or chest pain low sat , required 2 L NC, NO Home o2 weakness myalagia gone c/o mild abd pain, 1 time BM in ER, vomited 01/20, still nausea Vitals Vitals Vital Signs Date Time Temp Pulse Resp B/P (MAP) Pulse Ox O2 Delivery O2 Flow Rate FiO2 01/21/18 07:24 94 Room Air 01/21/18 07:00 97.9 104 16 130/78 (95) 97.9 01/20/18 21:11 2.0 Physical Exam General: Alert, Cooperative, mild distress Heart: Regular rate, Normal S1 Lungs: Clear, Other Abdomen: Normal bowel sounds, Other (decreased bs, mild middle abd tenderness) Extremities: No clubbing, No cyanosis, No edema Skin: No rashes Labs LABS Laboratory Tests Test 01/20/18 14:20 Influenza Type A Antigen Negative (NEGATIVE) Influenza Type B Antigen Negative (NEGATIVE) Assessment and Plan Assessmemt and Plan Problems Medical Problems: (1) Abdominal pain Status: Acute (2) Nausea and vomiting Status: Acute Comment Review of Relevant I have reviewed the following items jose angel (where applicable) has been applied. Labs Laboratory Tests Test 01/20/18 14:20 Influenza Type A Antigen Negative (NEGATIVE) Influenza Type B Antigen Negative (NEGATIVE) Laboratory Tests Test 01/20/18 14:20 Influenza Type A Antigen Negative (NEGATIVE) Influenza Type B Antigen Negative (NEGATIVE) Microbiology 01/18/18 Urine Culture - Final, Complete 01/18/18 Urine Culture Result 1 (RYANN) - Final, Complete Medications Current Medications Sodium Chloride 500 ml @ 500 mls/hr 1X ONCE IV Last administered on at 15:30; Start 01/18/18 at 15:15; Stop 01/18/18 at 16:14; Status DC Ondansetron HCl (Zofran) 4 mg 1X ONCE IV Last administered on 01/18/18at 15:24 ; Start 01/18/18 at 15:15; Stop 01/18/18 at 15:18; Status DC Fentanyl Citrate (Fentanyl 2ml Vial) 25 mcg 1X ONCE IV Last administered on at 15:25; Start 01/18/18 at 15:15; Stop 01/18/18 at 15:18; Status DC Fentanyl Citrate (Fentanyl 2ml Vial) 50 mcg 1X ONCE IV Last administered on at 16:26; Start 01/18/18 at 16:15; Stop 01/18/18 at 16:16; Status DC Ondansetron HCl (Zofran) 4 mg PRN Q8HRS PRN IV NAUSEA/VOMITING; Start at 16:30; Stop 01/19/18 at 16:29; Status DC Fentanyl Citrate (Fentanyl 2ml Vial) 25 mcg PRN Q3HRS PRN IV PAIN; Start 01/18 at 16:30; Stop 01/19/18 at 16:29; Status DC Iohexol (Omnipaque 300 Mg/ml) 60 ml 1X ONCE IV Last administered on at 16:58; Start 01/18/18 at 16:45; Stop 01/18/18 at 16:46; Status DC Info (CONTRAST GIVEN -- Rx MONITORING) 1 each PRN DAILY PRN MC SEE COMMENTS; Start 01/18/18 at 16:45; Stop 01/20/18 at 16:44; Status DC Diltiazem HCl (Cardizem 24hr Cd) 120 mg DAILY PO Last administered on at 10:40; Start 01/19/18 at 09:00 Guaifenesin (Mucinex) 600 mg BID PO Last administered on 01/20/18at 20:41; Start 01/18/18 at 21:00 Losartan Potassium (Cozaar) 50 mg DAILY PO Last administered on 01/20/18at 10: 41; Start 01/19/18 at 09:00 Simvastatin (Zocor) 10 mg HS PO Last administered on 01/20/18at 20:41; Start 01/18/18 at 21:00 Budesonide (Pulmicort) 0.5 mg RTBID NEB Last administered on 01/21/18at 07:22; Start 01/18/18 at 20:00 Ergocalciferol (Vitamin D2) 50,000 unit WEEKLY PO ; Start 01/25/18 at 09:00 Montelukast Sodium (Singulair) 10 mg QHS PO Last administered on 01/20/18at 20: 41; Start 01/18/18 at 21:00 Oxybutynin Chloride (Ditropan) 5 mg DAILY PO Last administered on 01/20/18at 10 :40; Start 01/19/18 at 09:00 Non-Formulary Medication (Pantoprazole Sodium (Protonix)) 40 mg DAILY PO ; Start 01/19/18 at 09:00; Stop 01/19/18 at 09:00; Status DC Albuterol/ Ipratropium (Duoneb) 3 ml RTQID NEB Last administered on 01/21/18at 07:22; Start 01/18/18 at 20:00 Tizanidine HCl (Zanaflex) 4 mg BID PO Last administered on 01/20/18at 20:42; Start 01/18/18 at 21:00 Albuterol Sulfate (Ventolin Neb Soln) 2.5 mg PRN Q4HRS PRN NEB SHORTNESS OF BREATH Last administered on 01/18/18at 17:16; Start 01/18/18 at 16:45 Acetaminophen (Tylenol) 650 mg PRN Q6HRS PRN PO FEVER Last administered on at 17:40; Start 01/18/18 at 16:45 Ondansetron HCl (Zofran) 4 mg PRN Q6HRS PRN IV NAUSEA/VOMITING Last administered on 01/21/18at 03:39; Start 01/18/18 at 16:45 Morphine Sulfate (Morphine Sulfate) 2 mg PRN Q2HR PRN IV MODERATE TO SEVERE PAIN Last administered on 01/20/18 20:41; Start 01/18/18 at 16:45 Tramadol HCl (Ultram) 50 mg PRN Q6HRS PRN PO MILD TO MODERATE PAIN Last administered on 01/20/18at 03:48; Start 01/18/18 at 16:45 Docusate Sodium (Colace) 100 mg PRN DAILY PRN PO CONSTIPATION; Start 01/18/18 at 16:45 Enoxaparin Sodium (Lovenox 40mg Syringe) 40 mg Q24H SQ Last administered on at 20:42; Start 01/18/18 at 20:00 Pantoprazole Sodium (PROTONIX VIAL for IV PUSH) 40 mg DAILYAC IVP Last administered on 01/21/18at 08:24; Start 01/18/18 at 17:00 Sodium Chloride 1,000 ml @ 75 mls/hr [id number] IV Last administered on at 23:44; Start 01/18/18 at 17:00 Dextrose (Dextrose 50%-Water Syringe) 12.5 gm PRN Q15MIN PRN IV SEE COMMENTS; Start 01/18/18 at 21:45 Ketorolac Tromethamine (Toradol 30mg Vial) 30 mg PRN 1X PRN IM headache; Start 01/20/18 at 00:15; Stop 01/20/18 at 00:19; Status DC Prochlorperazine Edisylate (Compazine) 10 mg 1X ONCE IV Last administered on 01/20/18at 00:19; Start 01/20/18 at 00:15; Stop 01/20/18 at 00:16; Status DC Ketorolac Tromethamine (Toradol 30mg Vial) 30 mg PRN 1X PRN IV headache Last administered on 01/20/18at 00:29; Start 01/20/18 at 00:18; Stop 01/25/18 at 00 :17 Oseltamivir Phosphate (Tamiflu) 75 mg BID PO Last administered on 01/20/18at 20 :41; Start 01/20/18 at 13:00; Stop 01/25/18 at 12:59 Oxycodone/ Acetaminophen (Percocet 5/325) 1 tab PRN Q4HRS PRN PO SEVERE PAIN Last administered on 01/21/18at 02:09; Start 01/20/18 at 12:45 Active Scripts Active Zofran (Ondansetron Hcl) 4 Mg Tablet 1 Tab PO Q8HRS PRN Reported Hydrocodone-Apap 7.5-325 (Hydrocodone Bit/Acetaminophen) 1 Each Tablet 1 Tab PO PRN Q6HRS PRN Benzonatate 100 Mg Capsule 1 Cap PO TID Albuterol Sulfate Neb Soln (Albuterol Sulfate) 2.5 Mg/3 Ml Vial.neb 1 Vial NEB BID Tizanidine Hcl 4 Mg Tablet 1 Tab PO BID Albuterol Sulfate Neb Soln (Albuterol Sulfate) 2.5 Mg/3 Ml Vial.neb 1 Vial NEB PRN Q4HRS Mucinex (Guaifenesin) 600 Mg Tablet.er 1 Tab PO BID Glimepiride 1 Mg Tablet 1 Mg PO DAILY Symbicort 160-4.5 Mcg Inhaler (Budesonide/Formoterol Fumarate) 10.2 Gm Hfa.aer.ad 1 Puff IH BID Vitamin D (Cholecalciferol (Vitamin D3)) 50,000 Unit Capsule 50,000 Unit PO WEEKLY Ditropan Xl (Oxybutynin Chloride) 5 Mg Tab.er.24 5 Mg PO DAILY Losartan Potassium 50 Mg Tablet 50 Mg PO DAILY Simvastatin 10 Mg Tablet 10 Mg PO HS Proair Hfa Inhaler (Albuterol Sulfate) 8.5 Gm Hfa.aer.ad 17 Gm IH Q4HRS W/A PRN Spiriva (Tiotropium [place]) 18 Mcg Cap.w.dev 18 Mcg IH DAILY Protonix (Pantoprazole Sodium) 40 Mg Granpkt.dr 40 Mg PO DAILY Singulair Tablet (Montelukast Sodium) 10 Mg Tablet 10 Mg PO HS Diltiazem 24HR Cd (Diltiazem Hcl) 120 Mg Cap.er.24h 120 Mg PO DAILY Vitals/I & O Vital Sign - Last 24 Hours 01/20/18 01/20/18 01/20/18 01/20/18 10:40 10:41 11:00 12:49 Temp 96.4 96.4 Pulse 98 98 101 Resp 18 B/P (MAP) 110/64 110/64 118/73 (88) Pulse Ox 96 O2 Delivery Nasal Cannula Nasal Cannula O2 Flow Rate 2.0 01/20/18 01/20/18 01/20/18 01/20/18 12:56 13:49 15:00 15:39 Temp 97.7 97.7 Pulse 95 Resp 18 18 B/P (MAP) 112/62 (79) Pulse Ox 98 O2 Delivery Nasal Cannula Nasal Cannula Nasal Cannula O2 Flow Rate 2.0 2.0 2.0 01/20/18 01/20/18 01/20/18 01/20/18 19:00 20:00 20:41 20:41 Temp 98.1 98.1 Pulse 95 Resp 20 B/P (MAP) 123/70 (87) Pulse Ox 99 O2 Delivery Nasal Cannula Nasal Cannula Room Air Room Air O2 Flow Rate 2.0 01/20/18 01/20/18 01/21/18 01/21/18 21:11 23:03 02:09 03:08 Temp 98.6 97.9 98.6 97.9 Pulse 98 72 Resp 20 20 B/P (MAP) 117/76 (90) 115/71 (86) Pulse Ox 99 97 96 O2 Delivery Nasal Cannula Nasal Cannula Room Air Nasal Cannula O2 Flow Rate 2.0 01/21/18 01/21/18 01/21/18 03:09 07:00 07:24 Temp 97.9 97.9 Pulse 104 Resp 16 B/P (MAP) 130/78 (95) Pulse Ox 85 94 O2 Delivery Nasal Cannula Room Air Room Air Intake and Output 01/20/18 01/20/18 01/21/18 15:00 23:00 07:00 Intake Total 0 ml Output Total 300 ml Balance 0 ml -300 ml CLAUDETTE QUIGLEY MD Jan 21, 2018 10:42
[2018-01-21 11:00] VITALS: BP 133/91
[2018-01-21] MEDS: MORPHINE SULFATE 2 MG/ML VIAL. IV PRN ×2 (11:02→13:05)
--- NOTE | 2018-01-21 11:41 | PDOC ---
Infectious Disease Note Subjective Subjective Feeling better except for a headache Denies N/V/D/F/C/S ROS ROS per HPI otherwise neg Vital Sign Vital Signs Vital Signs Date Time Temp Pulse Resp B/P (MAP) Pulse Ox O2 Delivery O2 Flow Rate FiO2 01/21/18 11:02 17 94 Nasal Cannula 2.0 01/21/18 07:00 97.9 104 130/78 (95) 97.9 Physical Exam PHYSICAL EXAM GENERAL: Lying down, NAD HEENT: Pupils equal and reactive. Oral cavity, pharynx is dry NECK: Supple. LUNGS: Decreased in the bases. HEART: S1, S2. ABDOMEN: Soft. No guarding, no rebound. + BS EXTREMITIES: Without clubbing, cyanosis nor gross edema. SKIN: Warm to touch without signs of rash. Labs Lab Laboratory Tests Test 01/20/18 14:20 Influenza Type A Antigen Negative (NEGATIVE) Influenza Type B Antigen Negative (NEGATIVE) Micro URINE CULTURE RES 1 Final No growth Objective Assessment Abd pain - better N/V - better ? Colitis on CT DM Headache Plan Plan of Care No need for antimicrobials for now D/c Tamiflu Obtain a Procalcitonin level Consult GI F/u temps and labs Appreciate GI input Attending Co-Sign The patient was seen and interviewed as well as examined at the bedside. The chart was reviewed. The case was discussed. Agree with the plan of care. PATTI LYNN APRN Jan 21, 2018 11:41 BENI VICENTE MD Jan 21, 2018 12:40
--- NOTE | 2018-01-21 14:23 | PDOC2 ---
CONSULT Date of Consult Date of Consult DATE: 01/21/18 TIME: 14:17 Reason for Consult Reason for Consult: Chronic abdominal pain Referring Physician Referring Physician: Umm Identification/Chief Complaint Chief Complaint Abdominal pain Source Source: Patient History of Present Illness Reason for Visit: 62 yo female with recurrent and episodic abdominal pain. Currently, resting comfortably in bed without complaints of pain. Getting GES today Past Medical History Cardiovascular: CAD, CHF, HTN, Hyperlipidemia Pulmonary: Asthma, COPD CENTRAL NERVOUS SYSTEM: Vertigo, Other GI: GERD Heme/Onc: No pertinent hx Hepatobiliary: No pertinent hx Psych: No pertinent hx Musculoskeletal: Osteoarthritis, Other Rheumatologic: No pertinent hx Infectious disease: No pertinent hx Renal/: No pertinent hx Endocrine: Diabetes Past Surgical History Past Surgical History: Total hip replacement, Other Family History Family History: Cancer, Heart Disease, Hypertension Social History No ALCOHOL: none Drugs: None Lives: with Family Domestic Violence: Neg Current Problem List Problem List Problems Medical Problems: (1) Abdominal pain Status: Acute (2) Nausea and vomiting Status: Acute Current Medications Current Medications Current Medications Sodium Chloride 500 ml @ 500 mls/hr 1X ONCE IV Last administered on at 15:30; Start 01/18/18 at 15:15; Stop 01/18/18 at 16:14; Status DC Ondansetron HCl (Zofran) 4 mg 1X ONCE IV Last administered on 01/18/18at 15:24 ; Start 01/18/18 at 15:15; Stop 01/18/18 at 15:18; Status DC Fentanyl Citrate (Fentanyl 2ml Vial) 25 mcg 1X ONCE IV Last administered on at 15:25; Start 01/18/18 at 15:15; Stop 01/18/18 at 15:18; Status DC Fentanyl Citrate (Fentanyl 2ml Vial) 50 mcg 1X ONCE IV Last administered on at 16:26; Start 01/18/18 at 16:15; Stop 01/18/18 at 16:16; Status DC Ondansetron HCl (Zofran) 4 mg PRN Q8HRS PRN IV NAUSEA/VOMITING; Start at 16:30; Stop 01/19/18 at 16:29; Status DC Fentanyl Citrate (Fentanyl 2ml Vial) 25 mcg PRN Q3HRS PRN IV PAIN; Start 01/18 at 16:30; Stop 01/19/18 at 16:29; Status DC Iohexol (Omnipaque 300 Mg/ml) 60 ml 1X ONCE IV Last administered on at 16:58; Start 01/18/18 at 16:45; Stop 01/18/18 at 16:46; Status DC Info (CONTRAST GIVEN -- Rx MONITORING) 1 each PRN DAILY PRN MC SEE COMMENTS; Start 01/18/18 at 16:45; Stop 01/20/18 at 16:44; Status DC Diltiazem HCl (Cardizem 24hr Cd) 120 mg DAILY PO Last administered on at 10:40; Start 01/19/18 at 09:00 Guaifenesin (Mucinex) 600 mg BID PO Last administered on 01/20/18at 20:41; Start 01/18/18 at 21:00 Losartan Potassium (Cozaar) 50 mg DAILY PO Last administered on 01/20/18at 10: 41; Start 01/19/18 at 09:00 Simvastatin (Zocor) 10 mg HS PO Last administered on 01/20/18at 20:41; Start 01/18/18 at 21:00 Budesonide (Pulmicort) 0.5 mg RTBID NEB Last administered on 01/21/18at 07:22; Start 01/18/18 at 20:00 Ergocalciferol (Vitamin D2) 50,000 unit WEEKLY PO ; Start 01/25/18 at 09:00 Montelukast Sodium (Singulair) 10 mg QHS PO Last administered on 01/20/18at 20: 41; Start 01/18/18 at 21:00 Oxybutynin Chloride (Ditropan) 5 mg DAILY PO Last administered on 01/20/18at 10 :40; Start 01/19/18 at 09:00 Non-Formulary Medication (Pantoprazole Sodium (Protonix)) 40 mg DAILY PO ; Start 01/19/18 at 09:00; Stop 01/19/18 at 09:00; Status DC Albuterol/ Ipratropium (Duoneb) 3 ml RTQID NEB Last administered on 01/21/18at 11:46; Start 01/18/18 at 20:00 Tizanidine HCl (Zanaflex) 4 mg BID PO Last administered on 01/20/18at 20:42; Start 01/18/18 at 21:00 Albuterol Sulfate (Ventolin Neb Soln) 2.5 mg PRN Q4HRS PRN NEB SHORTNESS OF BREATH Last administered on 01/18/18 17:16; Start 01/18/18 at 16:45 Acetaminophen (Tylenol) 650 mg PRN Q6HRS PRN PO FEVER Last administered on 17:40; Start 01/18/18 at 16:45 Ondansetron HCl (Zofran) 4 mg PRN Q6HRS PRN IV NAUSEA/VOMITING Last administered on 01/21/18 10:59; Start 01/18/18 at 16:45 Morphine Sulfate (Morphine Sulfate) 2 mg PRN Q2HR PRN IV MODERATE TO SEVERE PAIN Last administered on 01/21/18at 13:05; Start 01/18/18 at 16:45 Tramadol HCl (Ultram) 50 mg PRN Q6HRS PRN PO MILD TO MODERATE PAIN Last administered on 01/20/18at 03:48; Start 01/18/18 at 16:45 Docusate Sodium (Colace) 100 mg PRN DAILY PRN PO CONSTIPATION; Start 01/18/18 at 16:45 Enoxaparin Sodium (Lovenox 40mg Syringe) 40 mg Q24H SQ Last administered on 20:42; Start 01/18/18 at 20:00 Pantoprazole Sodium (PROTONIX VIAL for IV PUSH) 40 mg DAILYAC IVP Last administered on 01/21/18 08:24; Start 01/18/18 at 17:00 Sodium Chloride 1,000 ml @ 75 mls/hr [id number] IV Last administered on at 23:44; Start 01/18/18 at 17:00 Dextrose (Dextrose 50%-Water Syringe) 12.5 gm PRN Q15MIN PRN IV SEE COMMENTS; Start 01/18/18 at 21:45 Ketorolac Tromethamine (Toradol 30mg Vial) 30 mg PRN 1X PRN IM headache; Start 01/20/18 at 00:15; Stop 01/20/18 at 00:19; Status DC Prochlorperazine Edisylate (Compazine) 10 mg 1X ONCE IV Last administered on 01/20/18at 00:19; Start 01/20/18 at 00:15; Stop 01/20/18 at 00:16; Status DC Ketorolac Tromethamine (Toradol 30mg Vial) 30 mg PRN 1X PRN IV headache Last administered on 01/20/18at 00:29; Start 01/20/18 at 00:18; Stop 01/25/18 at 00 :17 Oseltamivir Phosphate (Tamiflu) 75 mg BID PO Last administered on 01/20/18at 20 :41; Start 01/20/18 at 13:00; Stop 01/21/18 at 11:41; Status DC Oxycodone/ Acetaminophen (Percocet 5/325) 1 tab PRN Q4HRS PRN PO SEVERE PAIN Last administered on 01/21/18at 02:09; Start 01/20/18 at 12:45 Active Scripts Active Zofran (Ondansetron Hcl) 4 Mg Tablet 1 Tab PO Q8HRS PRN Reported Hydrocodone-Apap 7.5-325 (Hydrocodone Bit/Acetaminophen) 1 Each Tablet 1 Tab PO PRN Q6HRS PRN Benzonatate 100 Mg Capsule 1 Cap PO TID Albuterol Sulfate Neb Soln (Albuterol Sulfate) 2.5 Mg/3 Ml Vial.neb 1 Vial NEB BID Tizanidine Hcl 4 Mg Tablet 1 Tab PO BID Albuterol Sulfate Neb Soln (Albuterol Sulfate) 2.5 Mg/3 Ml Vial.neb 1 Vial NEB PRN Q4HRS Mucinex (Guaifenesin) 600 Mg Tablet.er 1 Tab PO BID Glimepiride 1 Mg Tablet 1 Mg PO DAILY Symbicort 160-4.5 Mcg Inhaler (Budesonide/Formoterol Fumarate) 10.2 Gm Hfa.aer.ad 1 Puff IH BID Vitamin D (Cholecalciferol (Vitamin D3)) 50,000 Unit Capsule 50,000 Unit PO WEEKLY Ditropan Xl (Oxybutynin Chloride) 5 Mg Tab.er.24 5 Mg PO DAILY Losartan Potassium 50 Mg Tablet 50 Mg PO DAILY Simvastatin 10 Mg Tablet 10 Mg PO HS Proair Hfa Inhaler (Albuterol Sulfate) 8.5 Gm Hfa.aer.ad 17 Gm IH Q4HRS W/A PRN Spiriva (Tiotropium [place]) 18 Mcg Cap.w.dev 18 Mcg IH DAILY Protonix (Pantoprazole Sodium) 40 Mg Granpkt.dr 40 Mg PO DAILY Singulair Tablet (Montelukast Sodium) 10 Mg Tablet 10 Mg PO HS Diltiazem 24HR Cd (Diltiazem Hcl) 120 Mg Cap.er.24h 120 Mg PO DAILY Allergies Allergies: Coded Allergies: aspirin (Verified Allergy, Intermediate, 08/10/17) TRIGGER ASTHMA ROS Gastrointestinal: Yes Abdominal Pain Physical Exam General: Alert, Oriented X3, Cooperative, No acute distress HEENT: Atraumatic, PERRLA, EOMI Lungs: Clear to auscultation, Normal air movement Heart: Regular rate, No murmurs Abdomen: Normal bowel sounds, Soft, No tenderness Extremities: No edema Skin: No significant lesion Neuro: Normal speech Psych/Mental Status: Mental status NL Vitals VITALS Vital Signs Date Time Temp Pulse Resp B/P (MAP) Pulse Ox O2 Delivery O2 Flow Rate FiO2 01/21/18 13:05 17 Nasal Cannula 2.0 01/21/18 11:02 94 01/21/18 11:00 98.8 102 133/91 (105) 98.8 Labs Labs Laboratory Tests Test 01/20/18 14:20 01/21/18 12:59 Influenza Type A Antigen Negative (NEGATIVE) Influenza Type B Antigen Negative (NEGATIVE) Procalcitonin < 0.10 ng/mL (0.00-0.10) Laboratory Tests Test 01/20/18 14:20 01/21/18 12:59 Influenza Type A Antigen Negative (NEGATIVE) Influenza Type B Antigen Negative (NEGATIVE) Procalcitonin < 0.10 ng/mL (0.00-0.10) Images Images CT show some thickening of the sigmoid colon which has been present on previous CT's and she has had colonoscopy in the past Assessment/Plan Assessment/Plan Intermittent abdominal pain. No surgical indications at this time will F/U on GI studies JUNE CORNELL MD Jan 21, 2018 14:23
[2018-01-21] MEDS: OXYBUTYNIN CHLORIDE 5 MG TABLET PO SCH (14:27)
[2018-01-21] MEDS: IV NORMAL SALINE 1000ML BAG 1,000 ML IV SCH (14:27)
[2018-01-21] MEDS: LOSARTAN POTASSIUM 50 MG TABLET. PO SCH (14:28)
--- NOTE | 2018-01-21 14:32 | RAD ---
EXAM: Nuclear gastric emptying scan. HISTORY: Pain. Diabetes. COMPARISON: None. TECHNIQUE: Serial static images were obtained over the stomach following oral administration of 2 mCi of 99m-Tc sulfur colloid. FINDINGS: The stomach empties into the small bowel without evidence of reflux in the area of the esophagus. The estimated time for half emptying of gastric contents, i.e. 'gastric emptying time' is 146 minutes (normal is 66 +/- 22 minutes). There is 58% retained tracer activity at one hour, 48% retained tracer activity at 2 hours, 28% retained tracer activity at 3 hours and 21% retained tracer activity at 4 hours. IMPRESSION: Delayed gastric emptying with a calculated half-time of 146 minutes. Electronically signed by: Estrella Hawthorne MD (01/21/2018 2:29 PM) [email or web address]
--- NOTE | 2018-01-21 14:45 | PDOC ---
Subjective: Subjective: Pt reports some improvement in her abdominal pain, N/V today. She reports only mild abdominal pain today. She states she had some vomiting this morning. She does have a headache today. She has not had a BM today. She had her GES earlier this morning. Objective: Vital Signs: Vital Signs Date Time Temp Pulse Resp B/P (MAP) Pulse Ox O2 Delivery O2 Flow Rate FiO2 01/21/18 14:28 102 133/91 01/21/18 13:05 17 Nasal Cannula 2.0 01/21/18 11:02 94 01/21/18 11:00 98.8 98.8 Imaging: GES 01/21/2018 IMPRESSION: Delayed gastric emptying with a calculated half-time of 146 minutes. PE: GEN: NAD HEENT: Atraumatic, PERRLA LUNGS: CTAB HEART: RRR, no murmurs ABD: +TTP in epigastric and suprapubic regions EXTREMITY: No edema SKIN: No rashes, no jaundice NEURO/PSYCH: A & O 3 A/P: Gastroparesis- T 1/2 time calculated at 146 min on recent GES -Trial of prokinetic medication -Recommend small, frequent meals throughout day, low-fiber, low-fat when discharged N/v, abd pain - recurrent/chronic ?diarrhea - prior to admission Abnormal CT - several CTs during the past 4 years have noted "wall thickening" in left colon ?GERD ?h/o duodenal adenoma CRC screen - last colonoscopy 2013? S/p cholecystectomy -- Consider SBS and possibly colonoscopy. Has IV PPI ordered - can change to PO when reliably eating. Monitor stools. JOSELO BARERRA Jan 21, 2018 14:44 DIONNA STEPHENS MD Jan 21, 2018 16:09
[2018-01-21 15:22] VITALS: BP 143/83
[2018-01-21] MEDS ORDERED: METOCLOPRAMIDE 5 MG TABLET. PO PRN (16:45)
[2018-01-21 19:00] VITALS: BP 136/80
[2018-01-21] MEDS: ENOXAPARIN 40 MG/0.4 ML SYRINGE. SQ SCH (20:00)
[2018-01-21] MEDS: MONTELUKAST SODIUM 10 MG TABLET. PO SCH (21:25)
[2018-01-21] MEDS: SIMVASTATIN 10 MG TABLET PO SCH (21:25)
[2018-01-21] MEDS: ACETAMINOPHEN 325 MG TABLET. PO PRN (21:25)
[2018-01-21] MEDS: traMADol 50 MG TABLET PO PRN (21:25)
[2018-01-21 23:00] VITALS: BP 124/81
[2018-01-22] VITALS (7 sets, daily range): BP systolic 93–146; BP diastolic 49–85
[2018-01-22] MEDS: IV NORMAL SALINE 1000ML BAG 1,000 ML IV SCH (02:23)
[2018-01-22 05:01] LABS: BASO % 1 % (0-3); EOS # 0.1 x10^3/uL (0.0-0.7); EOS % 1 % (0-3); HEMATOCRIT 35.6 % (36.0-47.0); HEMOGLOBIN 12.1 g/dL (12.0-15.5); LYMPH # 0.8 x10^3/uL (1.0-4.8); LYMPH % 11 % (24-48); MEAN CORPUSCULAR HEMOGLOBIN 31 pg (25-35); MEAN CORPUSCULAR HGB CONC 34 g/dL (31-37); MEAN CORPUSCULAR VOLUME 91 fL (79-100); MONO # 0.8 x10^3/uL (0.0-1.1); MONO % 12 % (0-9); NEUT # 5.4 x10^3uL (1.8-7.7); NEUT % 76 % (31-73); PLATELET COUNT 332 x10^3/uL (140-400); RED CELL DISTRIBUTION WIDTH 14.6 % (11.5-14.5); WHITE BLOOD COUNT 7.1 x10^3/uL (4.0-11.0)
[2018-01-22 05:18] LABS: CALCIUM 9.3 mg/dL (8.5-10.1); CREATININE 0.5 mg/dL (0.6-1.0); GFR 125.4; POTASSIUM 3.6 mmol/L (3.5-5.1)
[2018-01-22] MEDS: IPRATRPIUM/ALBUTEROL 0.5/2.5MG 3 ML NEBU. NEB SCH ×4 (08:13→19:31)
[2018-01-22] MEDS: BUDESONIDE 0.5 MG/2 ML NEBU. NEB SCH ×2 (08:13→19:31)
[2018-01-22] MEDS: oxyCODONE/APAP 5/325 1 TAB TABLET PO PRN ×3 (08:47→22:55)
[2018-01-22] MEDS: tiZANidine 4 MG TABLET. PO SCH ×2 (08:47→21:00)
[2018-01-22] MEDS: PANTOPRAZOLE IV PUSH 40 MG VIAL. IVP SCH (08:47)
[2018-01-22] MEDS: LOSARTAN POTASSIUM 50 MG TABLET. PO SCH (08:47)
[2018-01-22] MEDS: OXYBUTYNIN CHLORIDE 5 MG TABLET PO SCH (08:48)
--- NOTE | 2018-01-22 09:05 | PDOC ---
SURGICAL PROGRESS NOTE Subjective No complaints this morning Vital Signs Vital Signs Date Time Temp Pulse Resp B/P (MAP) Pulse Ox O2 Delivery O2 Flow Rate FiO2 01/22/18 08:47 Nasal Cannula 01/22/18 08:47 103 137/84 01/22/18 08:14 99 2.0 01/22/18 07:32 98.2 17 98.2 I&O Intake and Output 01/22/18 07:00 # Voids 6 PATIENT HAS A RODRIGUEZ: No General: Alert, Oriented X3, Cooperative, No acute distress Abdomen: Normal bowel sounds, Soft, No tenderness Labs Laboratory Tests Test 01/20/18 14:20 01/21/18 12:59 01/21/18 20:46 01/22/18 04:30 Influenza Type A Antigen Negative (NEGATIVE) Influenza Type B Antigen Negative (NEGATIVE) Procalcitonin < 0.10 ng/mL (0.00-0.10) Glucose (Fingerstick) 93 mg/dL (70-99) White Blood Count 7.1 x10^3/uL (4.0-11.0) Red Blood Count 3.90 x10^6/uL (3.50-5.40) Hemoglobin 12.1 g/dL (12.0-15.5) Hematocrit 35.6 % (36.0-47.0) Mean Corpuscular Volume 91 fL (79-100) Mean Corpuscular Hemoglobin 31 pg (25-35) Mean Corpuscular Hemoglobin Concent 34 g/dL (31-37) Red Cell Distribution Width 14.6 % (11.5-14.5) Platelet Count 332 x10^3/uL (140-400) Neutrophils (%) (Auto) 76 % (31-73) Lymphocytes (%) (Auto) 11 % (24-48) Monocytes (%) (Auto) 12 % (0-9) Eosinophils (%) (Auto) 1 % (0-3) Basophils (%) (Auto) 1 % (0-3) Neutrophils # (Auto) 5.4 x10^3uL (1.8-7.7) Lymphocytes # (Auto) 0.8 x10^3/uL (1.0-4.8) Monocytes # (Auto) 0.8 x10^3/uL (0.0-1.1) Eosinophils # (Auto) 0.1 x10^3/uL (0.0-0.7) Basophils # (Auto) 0.0 x10^3/uL (0.0-0.2) Sodium Level 142 mmol/L (136-145) Potassium Level 3.6 mmol/L (3.5-5.1) Chloride Level 103 mmol/L (98-107) Carbon Dioxide Level 31 mmol/L (21-32) Anion Gap 8 (6-14) Blood Urea Nitrogen 5 mg/dL (7-20) Creatinine 0.5 mg/dL (0.6-1.0) Estimated GFR (Cockcroft-Gault) 125.4 Glucose Level 85 mg/dL (70-99) Calcium Level 9.3 mg/dL (8.5-10.1) Test 01/22/18 07:39 Glucose (Fingerstick) 69 mg/dL (70-99) Laboratory Tests Test 01/21/18 12:59 01/21/18 20:46 01/22/18 04:30 01/22/18 07:39 Procalcitonin < 0.10 ng/mL (0.00-0.10) Glucose (Fingerstick) 93 mg/dL (70-99) 69 mg/dL (70-99) White Blood Count 7.1 x10^3/uL (4.0-11.0) Red Blood Count 3.90 x10^6/uL (3.50-5.40) Hemoglobin 12.1 g/dL (12.0-15.5) Hematocrit 35.6 % (36.0-47.0) Mean Corpuscular Volume 91 fL (79-100) Mean Corpuscular Hemoglobin 31 pg (25-35) Mean Corpuscular Hemoglobin Concent 34 g/dL (31-37) Red Cell Distribution Width 14.6 % (11.5-14.5) Platelet Count 332 x10^3/uL (140-400) Neutrophils (%) (Auto) 76 % (31-73) Lymphocytes (%) (Auto) 11 % (24-48) Monocytes (%) (Auto) 12 % (0-9) Eosinophils (%) (Auto) 1 % (0-3) Basophils (%) (Auto) 1 % (0-3) Neutrophils # (Auto) 5.4 x10^3uL (1.8-7.7) Lymphocytes # (Auto) 0.8 x10^3/uL (1.0-4.8) Monocytes # (Auto) 0.8 x10^3/uL (0.0-1.1) Eosinophils # (Auto) 0.1 x10^3/uL (0.0-0.7) Basophils # (Auto) 0.0 x10^3/uL (0.0-0.2) Sodium Level 142 mmol/L (136-145) Potassium Level 3.6 mmol/L (3.5-5.1) Chloride Level 103 mmol/L (98-107) Carbon Dioxide Level 31 mmol/L (21-32) Anion Gap 8 (6-14) Blood Urea Nitrogen 5 mg/dL (7-20) Creatinine 0.5 mg/dL (0.6-1.0) Estimated GFR (Cockcroft-Gault) 125.4 Glucose Level 85 mg/dL (70-99) Calcium Level 9.3 mg/dL (8.5-10.1) I have reviewed the following Gastric emptying study shows delayed emptying consistent with gastroparesis Problem List Problems Medical Problems: (1) Abdominal pain Status: Acute (2) Nausea and vomiting Status: Acute Assessment/Plan Gastroparesis and abdominal pain No plans for any surgical interventions defer to GI for prokinetics JUNE CORNELL MD Jan 22, 2018 09:04
[2018-01-22] MEDS: POTASSIUM CL 20MEQ D5-0.9%NACL 1,000 ML IV SCH ×2 (09:34→22:53)
[2018-01-22] MEDS: METOCLOPRAMIDE HCL 10 MG/2 ML VIAL. IV SCH ×3 (11:33→21:01)
--- NOTE | 2018-01-22 13:05 | PDOC ---
PROGRESS NOTES Chief Complaint Chief Complaint Assessment/Plan abd pain with N/V, 2/[address] showed possible colitis COPD DM2, scoliosis, restrictive lung htn hld anxiety d/o NOS bronchitis previous smoker stable diastolic CHF ckd3 acute resp failure with hypoxia plan: fu with gi, id neg Flu,tamiflu dced advance diet to full liquid, add reglan 5mg iv ac + hs no abx ivf change to k+ d5+ NS GES today dvt ppx protonix iv daily for now PTOT duoneb, NC as needed. History of Present Illness History of Present Illness ROS: no fever, chills, sob or chest pain low sat , required 2 L NC, NO Home o2 weakness myalagia gone c/o mild abd pain, 1 time BM in ER, vomited 01/20, still nausea 01/22: no N/V, still very weak, abd pain 11/12, + GES Vitals Vitals Vital Signs Date Time Temp Pulse Resp B/P (MAP) Pulse Ox O2 Delivery O2 Flow Rate FiO2 01/22/18 11:57 Nasal Cannula 2.0 01/22/18 10:52 97.7 91 18 99/68 (78) 97 97.7 Physical Exam Physical Exam GENERAL: Lying down, NAD HEENT: Pupils equal and reactive. Oral cavity, pharynx is dry NECK: Supple. LUNGS: Decreased in the bases. HEART: S1, S2. ABDOMEN: Soft. No guarding, no rebound. + BS EXTREMITIES: Without clubbing, cyanosis nor gross edema. SKIN: Warm to touch without signs of rash. General: Alert, Oriented X3, Cooperative, No acute distress Heart: Regular rate, No murmurs Lungs: Clear, Other Abdomen: Normal bowel sounds, Soft, No tenderness Extremities: No edema Skin: No significant lesion Labs LABS Laboratory Tests Test 01/21/18 20:46 01/22/18 04:30 01/22/18 07:39 01/22/18 11:27 Glucose (Fingerstick) 93 mg/dL (70-99) 69 mg/dL (70-99) 99 mg/dL (70-99) White Blood Count 7.1 x10^3/uL (4.0-11.0) Red Blood Count 3.90 x10^6/uL (3.50-5.40) Hemoglobin 12.1 g/dL (12.0-15.5) Hematocrit 35.6 % (36.0-47.0) Mean Corpuscular Volume 91 fL (79-100) Mean Corpuscular Hemoglobin 31 pg (25-35) Mean Corpuscular Hemoglobin Concent 34 g/dL (31-37) Red Cell Distribution Width 14.6 % (11.5-14.5) Platelet Count 332 x10^3/uL (140-400) Neutrophils (%) (Auto) 76 % (31-73) Lymphocytes (%) (Auto) 11 % (24-48) Monocytes (%) (Auto) 12 % (0-9) Eosinophils (%) (Auto) 1 % (0-3) Basophils (%) (Auto) 1 % (0-3) Neutrophils # (Auto) 5.4 x10^3uL (1.8-7.7) Lymphocytes # (Auto) 0.8 x10^3/uL (1.0-4.8) Monocytes # (Auto) 0.8 x10^3/uL (0.0-1.1) Eosinophils # (Auto) 0.1 x10^3/uL (0.0-0.7) Basophils # (Auto) 0.0 x10^3/uL (0.0-0.2) Sodium Level 142 mmol/L (136-145) Potassium Level 3.6 mmol/L (3.5-5.1) Chloride Level 103 mmol/L (98-107) Carbon Dioxide Level 31 mmol/L (21-32) Anion Gap 8 (6-14) Blood Urea Nitrogen 5 mg/dL (7-20) Creatinine 0.5 mg/dL (0.6-1.0) Estimated GFR (Cockcroft-Gault) 125.4 Glucose Level 85 mg/dL (70-99) Calcium Level 9.3 mg/dL (8.5-10.1) Assessment and Plan Assessmemt and Plan Problems Medical Problems: (1) Abdominal pain Status: Acute (2) Nausea and vomiting Status: Acute Comment Review of Relevant I have reviewed the following items jose angel (where applicable) has been applied. Labs Laboratory Tests Test 01/20/18 14:20 01/21/18 12:59 01/21/18 20:46 01/22/18 04:30 Influenza Type A Antigen Negative (NEGATIVE) Influenza Type B Antigen Negative (NEGATIVE) Procalcitonin < 0.10 ng/mL (0.00-0.10) Glucose (Fingerstick) 93 mg/dL (70-99) White Blood Count 7.1 x10^3/uL (4.0-11.0) Red Blood Count 3.90 x10^6/uL (3.50-5.40) Hemoglobin 12.1 g/dL (12.0-15.5) Hematocrit 35.6 % (36.0-47.0) Mean Corpuscular Volume 91 fL (79-100) Mean Corpuscular Hemoglobin 31 pg (25-35) Mean Corpuscular Hemoglobin Concent 34 g/dL (31-37) Red Cell Distribution Width 14.6 % (11.5-14.5) Platelet Count 332 x10^3/uL (140-400) Neutrophils (%) (Auto) 76 % (31-73) Lymphocytes (%) (Auto) 11 % (24-48) Monocytes (%) (Auto) 12 % (0-9) Eosinophils (%) (Auto) 1 % (0-3) Basophils (%) (Auto) 1 % (0-3) Neutrophils # (Auto) 5.4 x10^3uL (1.8-7.7) Lymphocytes # (Auto) 0.8 x10^3/uL (1.0-4.8) Monocytes # (Auto) 0.8 x10^3/uL (0.0-1.1) Eosinophils # (Auto) 0.1 x10^3/uL (0.0-0.7) Basophils # (Auto) 0.0 x10^3/uL (0.0-0.2) Sodium Level 142 mmol/L (136-145) Potassium Level 3.6 mmol/L (3.5-5.1) Chloride Level 103 mmol/L (98-107) Carbon Dioxide Level 31 mmol/L (21-32) Anion Gap 8 (6-14) Blood Urea Nitrogen 5 mg/dL (7-20) Creatinine 0.5 mg/dL (0.6-1.0) Estimated GFR (Cockcroft-Gault) 125.4 Glucose Level 85 mg/dL (70-99) Calcium Level 9.3 mg/dL (8.5-10.1) Test 01/22/18 07:39 01/22/18 11:27 Glucose (Fingerstick) 69 mg/dL (70-99) 99 mg/dL (70-99) Laboratory Tests Test 01/21/18 20:46 01/22/18 04:30 01/22/18 07:39 01/22/18 11:27 Glucose (Fingerstick) 93 mg/dL (70-99) 69 mg/dL (70-99) 99 mg/dL (70-99) White Blood Count 7.1 x10^3/uL (4.0-11.0) Red Blood Count 3.90 x10^6/uL (3.50-5.40) Hemoglobin 12.1 g/dL (12.0-15.5) Hematocrit 35.6 % (36.0-47.0) Mean Corpuscular Volume 91 fL (79-100) Mean Corpuscular Hemoglobin 31 pg (25-35) Mean Corpuscular Hemoglobin Concent 34 g/dL (31-37) Red Cell Distribution Width 14.6 % (11.5-14.5) Platelet Count 332 x10^3/uL (140-400) Neutrophils (%) (Auto) 76 % (31-73) Lymphocytes (%) (Auto) 11 % (24-48) Monocytes (%) (Auto) 12 % (0-9) Eosinophils (%) (Auto) 1 % (0-3) Basophils (%) (Auto) 1 % (0-3) Neutrophils # (Auto) 5.4 x10^3uL (1.8-7.7) Lymphocytes # (Auto) 0.8 x10^3/uL (1.0-4.8) Monocytes # (Auto) 0.8 x10^3/uL (0.0-1.1) Eosinophils # (Auto) 0.1 x10^3/uL (0.0-0.7) Basophils # (Auto) 0.0 x10^3/uL (0.0-0.2) Sodium Level 142 mmol/L (136-145) Potassium Level 3.6 mmol/L (3.5-5.1) Chloride Level 103 mmol/L (98-107) Carbon Dioxide Level 31 mmol/L (21-32) Anion Gap 8 (6-14) Blood Urea Nitrogen 5 mg/dL (7-20) Creatinine 0.5 mg/dL (0.6-1.0) Estimated GFR (Cockcroft-Gault) 125.4 Glucose Level 85 mg/dL (70-99) Calcium Level 9.3 mg/dL (8.5-10.1) Microbiology 01/18/18 Urine Culture - Final, Complete 01/18/18 Urine Culture Result 1 (RYANN) - Final, Complete Medications Current Medications Sodium Chloride 500 ml @ 500 mls/hr 1X ONCE IV Last administered on at 15:30; Start 01/18/18 at 15:15; Stop 01/18/18 at 16:14; Status DC Ondansetron HCl (Zofran) 4 mg 1X ONCE IV Last administered on 01/18/18at 15:24 ; Start 01/18/18 at 15:15; Stop 01/18/18 at 15:18; Status DC Fentanyl Citrate (Fentanyl 2ml Vial) 25 mcg 1X ONCE IV Last administered on at 15:25; Start 01/18/18 at 15:15; Stop 01/18/18 at 15:18; Status DC Fentanyl Citrate (Fentanyl 2ml Vial) 50 mcg 1X ONCE IV Last administered on at 16:26; Start 01/18/18 at 16:15; Stop 01/18/18 at 16:16; Status DC Ondansetron HCl (Zofran) 4 mg PRN Q8HRS PRN IV NAUSEA/VOMITING; Start at 16:30; Stop 01/19/18 at 16:29; Status DC Fentanyl Citrate (Fentanyl 2ml Vial) 25 mcg PRN Q3HRS PRN IV PAIN; Start 01/18 at 16:30; Stop 01/19/18 at 16:29; Status DC Iohexol (Omnipaque 300 Mg/ml) 60 ml 1X ONCE IV Last administered on at 16:58; Start 01/18/18 at 16:45; Stop 01/18/18 at 16:46; Status DC Info (CONTRAST GIVEN -- Rx MONITORING) 1 each PRN DAILY PRN MC SEE COMMENTS; Start 01/18/18 at 16:45; Stop 01/20/18 at 16:44; Status DC Diltiazem HCl (Cardizem 24hr Cd) 120 mg DAILY PO Last administered on 08:47; Start 01/19/18 at 09:00 Guaifenesin (Mucinex) 600 mg BID PO Last administered on 01/22/18 08:47; Start 01/18/18 at 21:00 Losartan Potassium (Cozaar) 50 mg DAILY PO Last administered on 01/22/18 08: 47; Start 01/19/18 at 09:00 Simvastatin (Zocor) 10 mg HS PO Last administered on 01/21/18 21:25; Start 01/18/18 at 21:00 Budesonide (Pulmicort) 0.5 mg RTBID NEB Last administered on 01/22/18 08:13; Start 01/18/18 at 20:00 Ergocalciferol (Vitamin D2) 50,000 unit WEEKLY PO ; Start 01/25/18 at 09:00 Montelukast Sodium (Singulair) 10 mg QHS PO Last administered on 01/21/18 21: 25; Start 01/18/18 at 21:00 Oxybutynin Chloride (Ditropan) 5 mg DAILY PO Last administered on 01/22/18 08 :48; Start 01/19/18 at 09:00 Non-Formulary Medication (Pantoprazole Sodium (Protonix)) 40 mg DAILY PO ; Start 01/19/18 at 09:00; Stop 01/19/18 at 09:00; Status DC Albuterol/ Ipratropium (Duoneb) 3 ml RTQID NEB Last administered on 01/22/18at 11:56; Start 01/18/18 at 20:00 Tizanidine HCl (Zanaflex) 4 mg BID PO Last administered on 01/22/18 08:47; Start 01/18/18 at 21:00 Albuterol Sulfate (Ventolin Neb Soln) 2.5 mg PRN Q4HRS PRN NEB SHORTNESS OF BREATH Last administered on 01/18/18 17:16; Start 01/18/18 at 16:45 Acetaminophen (Tylenol) 650 mg PRN Q6HRS PRN PO FEVER Last administered on 21:25; Start 01/18/18 at 16:45 Ondansetron HCl (Zofran) 4 mg PRN Q6HRS PRN IV NAUSEA/VOMITING Last administered on 01/21/18at 10:59; Start 01/18/18 at 16:45 Morphine Sulfate (Morphine Sulfate) 2 mg PRN Q2HR PRN IV MODERATE TO SEVERE PAIN Last administered on 01/21/18at 13:05; Start 01/18/18 at 16:45 Tramadol HCl (Ultram) 50 mg PRN Q6HRS PRN PO MILD TO MODERATE PAIN Last administered on 01/21/18at 21:25; Start 01/18/18 at 16:45 Docusate Sodium (Colace) 100 mg PRN DAILY PRN PO CONSTIPATION; Start 01/18/18 at 16:45 Enoxaparin Sodium (Lovenox 40mg Syringe) 40 mg Q24H SQ Last administered on at 20:42; Start 01/18/18 at 20:00 Pantoprazole Sodium (PROTONIX VIAL for IV PUSH) 40 mg DAILYAC IVP Last administered on 01/22/18at 08:47; Start 01/18/18 at 17:00 Sodium Chloride 1,000 ml @ 75 mls/hr [id number] IV Last administered on at 02:23; Start 01/18/18 at 17:00; Stop 01/22/18 at 09:01; Status DC Dextrose (Dextrose 50%-Water Syringe) 12.5 gm PRN Q15MIN PRN IV SEE COMMENTS; Start 01/18/18 at 21:45 Ketorolac Tromethamine (Toradol 30mg Vial) 30 mg PRN 1X PRN IM headache; Start 01/20/18 at 00:15; Stop 01/20/18 at 00:19; Status DC Prochlorperazine Edisylate (Compazine) 10 mg 1X ONCE IV Last administered on 01/20/18at 00:19; Start 01/20/18 at 00:15; Stop 01/20/18 at 00:16; Status DC Ketorolac Tromethamine (Toradol 30mg Vial) 30 mg PRN 1X PRN IV headache Last administered on 01/20/18at 00:29; Start 01/20/18 at 00:18; Stop 01/25/18 at 00 :17 Oseltamivir Phosphate (Tamiflu) 75 mg BID PO Last administered on 01/20/18at 20 :41; Start 01/20/18 at 13:00; Stop 01/21/18 at 11:41; Status DC Oxycodone/ Acetaminophen (Percocet 5/325) 1 tab PRN Q4HRS PRN PO SEVERE PAIN Last administered on 01/22/18at 08:47; Start 01/20/18 at 12:45 Metoclopramide HCl (Reglan) 5 mg PRN BFRMEALHC PRN PO NAUSEA/VOMITING; Start 01/21/18 at 16:45 Potassium Chloride/Dextrose/ Sod Cl 1,000 ml @ 75 mls/hr [id number] IV Last administered on 01/22/18at 09:34; Start 01/22/18 at 09:00 Metoclopramide HCl (Reglan Vial) 5 mg QIDACHS IV Last administered on at 11:33; Start 01/22/18 at 11:30 Active Scripts Active Zofran (Ondansetron Hcl) 4 Mg Tablet 1 Tab PO Q8HRS PRN Reported Hydrocodone-Apap 7.5-325 (Hydrocodone Bit/Acetaminophen) 1 Each Tablet 1 Tab PO PRN Q6HRS PRN Benzonatate 100 Mg Capsule 1 Cap PO TID Albuterol Sulfate Neb Soln (Albuterol Sulfate) 2.5 Mg/3 Ml Vial.neb 1 Vial NEB BID Tizanidine Hcl 4 Mg Tablet 1 Tab PO BID Albuterol Sulfate Neb Soln (Albuterol Sulfate) 2.5 Mg/3 Ml Vial.neb 1 Vial NEB PRN Q4HRS Mucinex (Guaifenesin) 600 Mg Tablet.er 1 Tab PO BID Glimepiride 1 Mg Tablet 1 Mg PO DAILY Symbicort 160-4.5 Mcg Inhaler (Budesonide/Formoterol Fumarate) 10.2 Gm Hfa.aer.ad 1 Puff IH BID Vitamin D (Cholecalciferol (Vitamin D3)) 50,000 Unit Capsule 50,000 Unit PO WEEKLY Ditropan Xl (Oxybutynin Chloride) 5 Mg Tab.er.24 5 Mg PO DAILY Losartan Potassium 50 Mg Tablet 50 Mg PO DAILY Simvastatin 10 Mg Tablet 10 Mg PO HS Proair Hfa Inhaler (Albuterol Sulfate) 8.5 Gm Hfa.aer.ad 17 Gm IH Q4HRS W/A PRN Spiriva (Tiotropium Hi Hat) 18 Mcg Cap.w.dev 18 Mcg IH DAILY Protonix (Pantoprazole Sodium) 40 Mg Granpkt.dr 40 Mg PO DAILY Singulair Tablet (Montelukast Sodium) 10 Mg Tablet 10 Mg PO HS Diltiazem 24HR Cd (Diltiazem Hcl) 120 Mg Cap.er.24h 120 Mg PO DAILY Vitals/I & O Vital Sign - Last 24 Hours 01/21/18 01/21/18 01/21/18 01/21/18 13:05 14:27 14:28 15:22 Temp 99.2 99.2 Pulse 102 102 106 Resp 17 16 B/P (MAP) 133/91 133/91 143/83 (103) Pulse Ox 99 O2 Delivery Nasal Cannula Nasal Cannula O2 Flow Rate 2.0 2.0 01/21/18 01/21/18 01/21/18 01/21/18 16:33 19:00 19:44 20:00 Temp 100.4 100.4 Pulse 104 Resp 18 B/P (MAP) 136/80 (98) Pulse Ox 98 O2 Delivery Room Air Nasal Cannula Room Air Nasal Cannula O2 Flow Rate 2.0 2.0 01/21/18 01/21/18 01/22/18 01/22/18 21:25 23:00 03:00 07:32 Temp 98.8 98.8 98.2 98.8 98.8 98.2 Pulse 104 102 103 Resp 18 18 18 17 B/P (MAP) 124/81 (95) 134/78 (96) 137/84 (101) Pulse Ox 98 97 99 98 O2 Delivery Nasal Cannula Nasal Cannula Nasal Cannula Nasal Cannula O2 Flow Rate 2.0 2.0 2.0 2.0 01/22/18 01/22/18 01/22/18 01/22/18 08:00 08:14 08:47 08:47 Pulse 103 103 B/P (MAP) 137/84 137/84 Pulse Ox 99 O2 Delivery Nasal Cannula Nasal Cannula O2 Flow Rate 2.0 2.0 01/22/18 01/22/18 01/22/18 01/22/18 08:47 09:47 10:52 11:57 Temp 97.7 97.7 Pulse 91 Resp 18 B/P (MAP) 99/68 (78) Pulse Ox 97 O2 Delivery Nasal Cannula Nasal Cannula Nasal Cannula Nasal Cannula O2 Flow Rate 2.0 2.0 CLAUDETTE QUIGLEY MD Jan 22, 2018 13:05
[2018-01-22] MEDS: ENOXAPARIN 40 MG/0.4 ML SYRINGE. SQ SCH (20:00)
[2018-01-22] MEDS: traMADol 50 MG TABLET PO PRN (20:58)
[2018-01-22] MEDS: SIMVASTATIN 10 MG TABLET PO SCH (20:59)
[2018-01-22] MEDS: MONTELUKAST SODIUM 10 MG TABLET. PO SCH (21:00)
[2018-01-23 03:00] VITALS: BP 134/78
[2018-01-23] MEDS: oxyCODONE/APAP 5/325 1 TAB TABLET PO PRN ×2 (03:56→16:20)
[2018-01-23 04:28] LABS: BASO % 1 % (0-3); EOS # 0.2 x10^3/uL (0.0-0.7); EOS % 3 % (0-3); HEMATOCRIT 33.4 % (36.0-47.0); HEMOGLOBIN 11.3 g/dL (12.0-15.5); LYMPH # 0.9 x10^3/uL (1.0-4.8); LYMPH % 10 % (24-48); MEAN CORPUSCULAR HEMOGLOBIN 31 pg (25-35); MEAN CORPUSCULAR HGB CONC 34 g/dL (31-37); MEAN CORPUSCULAR VOLUME 91 fL (79-100); MONO % 11 % (0-9); NEUT # 6.4 x10^3uL (1.8-7.7); NEUT % 75 % (31-73); PLATELET COUNT 333 x10^3/uL (140-400); RED BLOOD COUNT 3.67 x10^6/uL (3.50-5.40); RED CELL DISTRIBUTION WIDTH 14.9 % (11.5-14.5); WHITE BLOOD COUNT 8.4 x10^3/uL (4.0-11.0)
[2018-01-23 04:36] LABS: CALCIUM 8.7 mg/dL (8.5-10.1); CREATININE 0.5 mg/dL (0.6-1.0); GFR 125.4; POTASSIUM 3.8 mmol/L (3.5-5.1)
[2018-01-23 07:00] VITALS: BP 121/79
[2018-01-23] MEDS: IPRATRPIUM/ALBUTEROL 0.5/2.5MG 3 ML NEBU. NEB SCH ×4 (07:36→20:14)
[2018-01-23] MEDS: BUDESONIDE 0.5 MG/2 ML NEBU. NEB SCH ×2 (07:36→20:14)
[2018-01-23] MEDS: tiZANidine 4 MG TABLET. PO SCH ×2 (08:42→20:36)
[2018-01-23] MEDS: PANTOPRAZOLE IV PUSH 40 MG VIAL. IVP SCH (08:42)
[2018-01-23] MEDS: OXYBUTYNIN CHLORIDE 5 MG TABLET PO SCH (08:42)
[2018-01-23] MEDS: METOCLOPRAMIDE HCL 10 MG/2 ML VIAL. IV SCH ×4 (08:43→20:36)
[2018-01-23] MEDS: LOSARTAN POTASSIUM 50 MG TABLET. PO SCH (08:44)
[2018-01-23] MEDS: POTASSIUM CL 20MEQ D5-0.9%NACL 1,000 ML IV SCH (10:54)
[2018-01-23 11:00] VITALS: BP_SYST 108; BP_SYST 119; BP_DIAS 58; BP_DIAS 78
--- NOTE | 2018-01-23 12:03 | PDOC ---
PROGRESS NOTES Chief Complaint Chief Complaint Assessment/Plan abd pain with N/V, 2/[address] showed possible colitis COPD DM2, scoliosis, restrictive lung htn hld anxiety d/o NOS bronchitis previous smoker stable diastolic CHF ckd3 acute resp failure with hypoxia plan: fu with gi, id neg Flu,tamiflu dced advance diet to gi soft diet, added reglan 5mg iv ac + hs no abx ivf change to k+ d5+ NS GES today dvt ppx protonix po daily PTOT duoneb, NC as needed. consider dc tmr if eats ok History of Present Illness History of Present Illness ROS: no fever, chills, sob or chest pain low sat , required 2 L NC, NO Home o2 weakness myalagia gone c/o mild abd pain, 1 time BM in ER, vomited 01/20, still nausea 01/22: no N/V, still very weak, abd pain 11/12, + GES 01/23: no N/V, abd pain gone. very weak, low po intake Vitals Vitals Vital Signs Date Time Temp Pulse Resp B/P (MAP) Pulse Ox O2 Delivery O2 Flow Rate FiO2 01/23/18 11:35 Nasal Cannula 2.0 01/23/18 08:44 98 121/79 01/23/18 07:00 95.0 18 96 95.0 Physical Exam Physical Exam GENERAL: Lying down, NAD HEENT: Pupils equal and reactive. Oral cavity, pharynx is dry NECK: Supple. LUNGS: Decreased in the bases. HEART: S1, S2. ABDOMEN: Soft. No guarding, no rebound. + BS EXTREMITIES: Without clubbing, cyanosis nor gross edema. SKIN: Warm to touch without signs of rash. General: Alert, Oriented X3, Cooperative, No acute distress Heart: Regular rate, No murmurs Lungs: Clear, Other Abdomen: Normal bowel sounds, Soft, No tenderness Extremities: No edema Skin: No significant lesion Labs LABS Laboratory Tests Test 01/22/18 16:18 01/22/18 20:45 01/23/18 04:15 Glucose (Fingerstick) 98 mg/dL (70-99) 130 mg/dL (70-99) White Blood Count 8.4 x10^3/uL (4.0-11.0) Red Blood Count 3.67 x10^6/uL (3.50-5.40) Hemoglobin 11.3 g/dL (12.0-15.5) Hematocrit 33.4 % (36.0-47.0) Mean Corpuscular Volume 91 fL (79-100) Mean Corpuscular Hemoglobin 31 pg (25-35) Mean Corpuscular Hemoglobin Concent 34 g/dL (31-37) Red Cell Distribution Width 14.9 % (11.5-14.5) Platelet Count 333 x10^3/uL (140-400) Neutrophils (%) (Auto) 75 % (31-73) Lymphocytes (%) (Auto) 10 % (24-48) Monocytes (%) (Auto) 11 % (0-9) Eosinophils (%) (Auto) 3 % (0-3) Basophils (%) (Auto) 1 % (0-3) Neutrophils # (Auto) 6.4 x10^3uL (1.8-7.7) Lymphocytes # (Auto) 0.9 x10^3/uL (1.0-4.8) Monocytes # (Auto) 1.0 x10^3/uL (0.0-1.1) Eosinophils # (Auto) 0.2 x10^3/uL (0.0-0.7) Basophils # (Auto) 0.0 x10^3/uL (0.0-0.2) Sodium Level 145 mmol/L (136-145) Potassium Level 3.8 mmol/L (3.5-5.1) Chloride Level 106 mmol/L (98-107) Carbon Dioxide Level 34 mmol/L (21-32) Anion Gap 5 (6-14) Blood Urea Nitrogen 3 mg/dL (7-20) Creatinine 0.5 mg/dL (0.6-1.0) Estimated GFR (Cockcroft-Gault) 125.4 Glucose Level 116 mg/dL (70-99) Calcium Level 8.7 mg/dL (8.5-10.1) Assessment and Plan Assessmemt and Plan Problems Medical Problems: (1) Abdominal pain Status: Acute (2) Nausea and vomiting Status: Acute Comment Review of Relevant I have reviewed the following items jose angel (where applicable) has been applied. Labs Laboratory Tests Test 01/21/18 12:59 01/21/18 20:46 01/22/18 04:30 01/22/18 07:39 Procalcitonin < 0.10 ng/mL (0.00-0.10) Glucose (Fingerstick) 93 mg/dL (70-99) 69 mg/dL (70-99) White Blood Count 7.1 x10^3/uL (4.0-11.0) Red Blood Count 3.90 x10^6/uL (3.50-5.40) Hemoglobin 12.1 g/dL (12.0-15.5) Hematocrit 35.6 % (36.0-47.0) Mean Corpuscular Volume 91 fL (79-100) Mean Corpuscular Hemoglobin 31 pg (25-35) Mean Corpuscular Hemoglobin Concent 34 g/dL (31-37) Red Cell Distribution Width 14.6 % (11.5-14.5) Platelet Count 332 x10^3/uL (140-400) Neutrophils (%) (Auto) 76 % (31-73) Lymphocytes (%) (Auto) 11 % (24-48) Monocytes (%) (Auto) 12 % (0-9) Eosinophils (%) (Auto) 1 % (0-3) Basophils (%) (Auto) 1 % (0-3) Neutrophils # (Auto) 5.4 x10^3uL (1.8-7.7) Lymphocytes # (Auto) 0.8 x10^3/uL (1.0-4.8) Monocytes # (Auto) 0.8 x10^3/uL (0.0-1.1) Eosinophils # (Auto) 0.1 x10^3/uL (0.0-0.7) Basophils # (Auto) 0.0 x10^3/uL (0.0-0.2) Sodium Level 142 mmol/L (136-145) Potassium Level 3.6 mmol/L (3.5-5.1) Chloride Level 103 mmol/L (98-107) Carbon Dioxide Level 31 mmol/L (21-32) Anion Gap 8 (6-14) Blood Urea Nitrogen 5 mg/dL (7-20) Creatinine 0.5 mg/dL (0.6-1.0) Estimated GFR (Cockcroft-Gault) 125.4 Glucose Level 85 mg/dL (70-99) Calcium Level 9.3 mg/dL (8.5-10.1) Test 01/22/18 11:27 01/22/18 16:18 01/22/18 20:45 01/23/18 04:15 Glucose (Fingerstick) 99 mg/dL (70-99) 98 mg/dL (70-99) 130 mg/dL (70-99) White Blood Count 8.4 x10^3/uL (4.0-11.0) Red Blood Count 3.67 x10^6/uL (3.50-5.40) Hemoglobin 11.3 g/dL (12.0-15.5) Hematocrit 33.4 % (36.0-47.0) Mean Corpuscular Volume 91 fL (79-100) Mean Corpuscular Hemoglobin 31 pg (25-35) Mean Corpuscular Hemoglobin Concent 34 g/dL (31-37) Red Cell Distribution Width 14.9 % (11.5-14.5) Platelet Count 333 x10^3/uL (140-400) Neutrophils (%) (Auto) 75 % (31-73) Lymphocytes (%) (Auto) 10 % (24-48) Monocytes (%) (Auto) 11 % (0-9) Eosinophils (%) (Auto) 3 % (0-3) Basophils (%) (Auto) 1 % (0-3) Neutrophils # (Auto) 6.4 x10^3uL (1.8-7.7) Lymphocytes # (Auto) 0.9 x10^3/uL (1.0-4.8) Monocytes # (Auto) 1.0 x10^3/uL (0.0-1.1) Eosinophils # (Auto) 0.2 x10^3/uL (0.0-0.7) Basophils # (Auto) 0.0 x10^3/uL (0.0-0.2) Sodium Level 145 mmol/L (136-145) Potassium Level 3.8 mmol/L (3.5-5.1) Chloride Level 106 mmol/L (98-107) Carbon Dioxide Level 34 mmol/L (21-32) Anion Gap 5 (6-14) Blood Urea Nitrogen 3 mg/dL (7-20) Creatinine 0.5 mg/dL (0.6-1.0) Estimated GFR (Cockcroft-Gault) 125.4 Glucose Level 116 mg/dL (70-99) Calcium Level 8.7 mg/dL (8.5-10.1) Laboratory Tests Test 01/22/18 16:18 01/22/18 20:45 01/23/18 04:15 Glucose (Fingerstick) 98 mg/dL (70-99) 130 mg/dL (70-99) White Blood Count 8.4 x10^3/uL (4.0-11.0) Red Blood Count 3.67 x10^6/uL (3.50-5.40) Hemoglobin 11.3 g/dL (12.0-15.5) Hematocrit 33.4 % (36.0-47.0) Mean Corpuscular Volume 91 fL (79-100) Mean Corpuscular Hemoglobin 31 pg (25-35) Mean Corpuscular Hemoglobin Concent 34 g/dL (31-37) Red Cell Distribution Width 14.9 % (11.5-14.5) Platelet Count 333 x10^3/uL (140-400) Neutrophils (%) (Auto) 75 % (31-73) Lymphocytes (%) (Auto) 10 % (24-48) Monocytes (%) (Auto) 11 % (0-9) Eosinophils (%) (Auto) 3 % (0-3) Basophils (%) (Auto) 1 % (0-3) Neutrophils # (Auto) 6.4 x10^3uL (1.8-7.7) Lymphocytes # (Auto) 0.9 x10^3/uL (1.0-4.8) Monocytes # (Auto) 1.0 x10^3/uL (0.0-1.1) Eosinophils # (Auto) 0.2 x10^3/uL (0.0-0.7) Basophils # (Auto) 0.0 x10^3/uL (0.0-0.2) Sodium Level 145 mmol/L (136-145) Potassium Level 3.8 mmol/L (3.5-5.1) Chloride Level 106 mmol/L (98-107) Carbon Dioxide Level 34 mmol/L (21-32) Anion Gap 5 (6-14) Blood Urea Nitrogen 3 mg/dL (7-20) Creatinine 0.5 mg/dL (0.6-1.0) Estimated GFR (Cockcroft-Gault) 125.4 Glucose Level 116 mg/dL (70-99) Calcium Level 8.7 mg/dL (8.5-10.1) Microbiology 01/18/18 Urine Culture - Final, Complete 01/18/18 Urine Culture Result 1 (RYANN) - Final, Complete Medications Current Medications Sodium Chloride 500 ml @ 500 mls/hr 1X ONCE IV Last administered on at 15:30; Start 01/18/18 at 15:15; Stop 01/18/18 at 16:14; Status DC Ondansetron HCl (Zofran) 4 mg 1X ONCE IV Last administered on 01/18/18at 15:24 ; Start 01/18/18 at 15:15; Stop 01/18/18 at 15:18; Status DC Fentanyl Citrate (Fentanyl 2ml Vial) 25 mcg 1X ONCE IV Last administered on at 15:25; Start 01/18/18 at 15:15; Stop 01/18/18 at 15:18; Status DC Fentanyl Citrate (Fentanyl 2ml Vial) 50 mcg 1X ONCE IV Last administered on at 16:26; Start 01/18/18 at 16:15; Stop 01/18/18 at 16:16; Status DC Ondansetron HCl (Zofran) 4 mg PRN Q8HRS PRN IV NAUSEA/VOMITING; Start at 16:30; Stop 01/19/18 at 16:29; Status DC Fentanyl Citrate (Fentanyl 2ml Vial) 25 mcg PRN Q3HRS PRN IV PAIN; Start 01/18 at 16:30; Stop 01/19/18 at 16:29; Status DC Iohexol (Omnipaque 300 Mg/ml) 60 ml 1X ONCE IV Last administered on at 16:58; Start 01/18/18 at 16:45; Stop 01/18/18 at 16:46; Status DC Info (CONTRAST GIVEN -- Rx MONITORING) 1 each PRN DAILY PRN MC SEE COMMENTS; Start 01/18/18 at 16:45; Stop 01/20/18 at 16:44; Status DC Diltiazem HCl (Cardizem 24hr Cd) 120 mg DAILY PO Last administered on at 08:43; Start 01/19/18 at 09:00 Guaifenesin (Mucinex) 600 mg BID PO Last administered on 01/23/18 08:42; Start 01/18/18 at 21:00 Losartan Potassium (Cozaar) 50 mg DAILY PO Last administered on 01/23/18at 08: 44; Start 01/19/18 at 09:00 Simvastatin (Zocor) 10 mg HS PO Last administered on 01/22/18at 20:59; Start 01/18/18 at 21:00 Budesonide (Pulmicort) 0.5 mg RTBID NEB Last administered on 01/23/18at 07:36; Start 01/18/18 at 20:00 Ergocalciferol (Vitamin D2) 50,000 unit WEEKLY PO ; Start 01/25/18 at 09:00 Montelukast Sodium (Singulair) 10 mg QHS PO Last administered on 01/22/18at 21: 00; Start 01/18/18 at 21:00 Oxybutynin Chloride (Ditropan) 5 mg DAILY PO Last administered on 01/23/18at 08 :42; Start 01/19/18 at 09:00 Non-Formulary Medication (Pantoprazole Sodium (Protonix)) 40 mg DAILY PO ; Start 01/19/18 at 09:00; Stop 01/19/18 at 09:00; Status DC Albuterol/ Ipratropium (Duoneb) 3 ml RTQID NEB Last administered on 01/23/18at 11:35; Start 01/18/18 at 20:00 Tizanidine HCl (Zanaflex) 4 mg BID PO Last administered on 01/23/18at 08:42; Start 01/18/18 at 21:00 Albuterol Sulfate (Ventolin Neb Soln) 2.5 mg PRN Q4HRS PRN NEB SHORTNESS OF BREATH Last administered on 01/18/18 17:16; Start 01/18/18 at 16:45 Acetaminophen (Tylenol) 650 mg PRN Q6HRS PRN PO FEVER Last administered on at 21:25; Start 01/18/18 at 16:45 Ondansetron HCl (Zofran) 4 mg PRN Q6HRS PRN IV NAUSEA/VOMITING Last administered on 01/21/18at 10:59; Start 01/18/18 at 16:45 Morphine Sulfate (Morphine Sulfate) 2 mg PRN Q2HR PRN IV MODERATE TO SEVERE PAIN Last administered on 01/21/18at 13:05; Start 01/18/18 at 16:45 Tramadol HCl (Ultram) 50 mg PRN Q6HRS PRN PO MILD TO MODERATE PAIN Last administered on 01/22/18at 20:58; Start 01/18/18 at 16:45 Docusate Sodium (Colace) 100 mg PRN DAILY PRN PO CONSTIPATION; Start 01/18/18 at 16:45 Enoxaparin Sodium (Lovenox 40mg Syringe) 40 mg Q24H SQ Last administered on at 20:42; Start 01/18/18 at 20:00 Pantoprazole Sodium (PROTONIX VIAL for IV PUSH) 40 mg DAILYAC IVP Last administered on 01/23/18at 08:42; Start 01/18/18 at 17:00 Sodium Chloride 1,000 ml @ 75 mls/hr [id number] IV Last administered on at 02:23; Start 01/18/18 at 17:00; Stop 01/22/18 at 09:01; Status DC Dextrose (Dextrose 50%-Water Syringe) 12.5 gm PRN Q15MIN PRN IV SEE COMMENTS; Start 01/18/18 at 21:45 Ketorolac Tromethamine (Toradol 30mg Vial) 30 mg PRN 1X PRN IM headache; Start 01/20/18 at 00:15; Stop 01/20/18 at 00:19; Status DC Prochlorperazine Edisylate (Compazine) 10 mg 1X ONCE IV Last administered on 01/20/18at 00:19; Start 01/20/18 at 00:15; Stop 01/20/18 at 00:16; Status DC Ketorolac Tromethamine (Toradol 30mg Vial) 30 mg PRN 1X PRN IV headache Last administered on 01/20/18at 00:29; Start 01/20/18 at 00:18; Stop 01/25/18 at 00 :17 Oseltamivir Phosphate (Tamiflu) 75 mg BID PO Last administered on 01/20/18at 20 :41; Start 01/20/18 at 13:00; Stop 01/21/18 at 11:41; Status DC Oxycodone/ Acetaminophen (Percocet 5/325) 1 tab PRN Q4HRS PRN PO SEVERE PAIN Last administered on 01/23/18at 03:56; Start 01/20/18 at 12:45 Metoclopramide HCl (Reglan) 5 mg PRN BFRMEALHC PRN PO NAUSEA/VOMITING; Start 01/21/18 at 16:45 Potassium Chloride/Dextrose/ Sod Cl 1,000 ml @ 75 mls/hr [id number] IV Last administered on 01/23/18at 10:54; Start 01/22/18 at 09:00 Metoclopramide HCl (Reglan Vial) 5 mg QIDACHS IV Last administered on at 10:54; Start 01/22/18 at 11:30 Active Scripts Active Zofran (Ondansetron Hcl) 4 Mg Tablet 1 Tab PO Q8HRS PRN Reported Hydrocodone-Apap 7.5-325 (Hydrocodone Bit/Acetaminophen) 1 Each Tablet 1 Tab PO PRN Q6HRS PRN Benzonatate 100 Mg Capsule 1 Cap PO TID Albuterol Sulfate Neb Soln (Albuterol Sulfate) 2.5 Mg/3 Ml Vial.neb 1 Vial NEB BID Tizanidine Hcl 4 Mg Tablet 1 Tab PO BID Albuterol Sulfate Neb Soln (Albuterol Sulfate) 2.5 Mg/3 Ml Vial.neb 1 Vial NEB PRN Q4HRS Mucinex (Guaifenesin) 600 Mg Tablet.er 1 Tab PO BID Glimepiride 1 Mg Tablet 1 Mg PO DAILY Symbicort 160-4.5 Mcg Inhaler (Budesonide/Formoterol Fumarate) 10.2 Gm Hfa.aer.ad 1 Puff IH BID Vitamin D (Cholecalciferol (Vitamin D3)) 50,000 Unit Capsule 50,000 Unit PO WEEKLY Ditropan Xl (Oxybutynin Chloride) 5 Mg Tab.er.24 5 Mg PO DAILY Losartan Potassium 50 Mg Tablet 50 Mg PO DAILY Simvastatin 10 Mg Tablet 10 Mg PO HS Proair Hfa Inhaler (Albuterol Sulfate) 8.5 Gm Hfa.aer.ad 17 Gm IH Q4HRS W/A PRN Spiriva (Tiotropium [place]) 18 Mcg Cap.w.dev 18 Mcg IH DAILY Protonix (Pantoprazole Sodium) 40 Mg Granpkt.dr 40 Mg PO DAILY Singulair Tablet (Montelukast Sodium) 10 Mg Tablet 10 Mg PO HS Diltiazem 24HR Cd (Diltiazem Hcl) 120 Mg Cap.er.24h 120 Mg PO DAILY Vitals/I & O Vital Sign - Last 24 Hours 01/22/18 01/22/18 01/22/18 01/22/18 15:00 15:52 18:36 19:00 Temp 97.7 96.0 97.7 96.0 Pulse 100 100 Resp 18 20 B/P (MAP) 146/85 (105) 119/67 (84) Pulse Ox 99 100 O2 Delivery Nasal Cannula Nasal Cannula Nasal Cannula Nasal Cannula O2 Flow Rate 2.0 2.0 2.0 01/22/18 01/22/18 01/22/18 01/22/18 19:31 20:00 20:58 21:58 Resp 18 18 Pulse Ox 99 99 O2 Delivery Nasal Cannula Nasal Cannula Nasal Cannula Nasal Cannula O2 Flow Rate 2.0 2.0 2.0 2.0 01/22/18 01/22/18 01/22/18 01/22/18 22:55 23:00 23:30 23:55 Temp 97.5 97.5 Pulse 91 89 Resp 18 18 18 18 B/P (MAP) 93/49 (64) 109/59 (76) Pulse Ox 99 96 96 O2 Delivery Nasal Cannula Nasal Cannula Nasal Cannula O2 Flow Rate 2.0 2.0 2.0 01/23/18 01/23/18 01/23/18 01/23/18 03:00 03:56 04:56 07:00 Temp 97.9 95.0 97.9 95.0 Pulse 93 98 Resp 18 18 18 B/P (MAP) 134/78 (96) 121/79 (93) Pulse Ox 96 96 96 96 O2 Delivery Nasal Cannula Nasal Cannula Nasal Cannula Nasal Cannula O2 Flow Rate 2.0 2.0 2.0 2.0 01/23/18 01/23/18 01/23/18 01/23/18 07:36 07:53 08:43 08:44 Pulse 98 98 B/P (MAP) 121/79 121/79 O2 Delivery Nasal Cannula Nasal Cannula O2 Flow Rate 2.0 3.5 01/23/18 11:35 O2 Delivery Nasal Cannula O2 Flow Rate 2.0 Intake and Output 01/22/18 01/22/18 01/23/18 15:00 23:00 07:00 Intake Total 240 ml 200 ml 400 ml Balance 240 ml 200 ml 400 ml CLAUDETTE QUIGLEY MD Jan 23, 2018 12:03
[2018-01-23 15:00] VITALS: BP 197/88
[2018-01-23 19:00] VITALS: BP 144/87
[2018-01-23] MEDS: ENOXAPARIN 40 MG/0.4 ML SYRINGE. SQ SCH ×2 (20:00→20:40)
[2018-01-23] MEDS: SIMVASTATIN 10 MG TABLET PO SCH (20:36)
[2018-01-23] MEDS: MONTELUKAST SODIUM 10 MG TABLET. PO SCH (20:36)
[2018-01-23] MEDS: traMADol 50 MG TABLET PO PRN (20:36)
[2018-01-23 23:00] VITALS: BP 110/73
[2018-01-24] MEDS: POTASSIUM CL 20MEQ D5-0.9%NACL 1,000 ML IV SCH (00:23)
[2018-01-24 03:00] VITALS: BP 138/99
[2018-01-24 04:37] LABS: BASO % 1 % (0-3); EOS # 0.3 x10^3/uL (0.0-0.7); EOS % 4 % (0-3); HEMATOCRIT 31.8 % (36.0-47.0); HEMOGLOBIN 10.9 g/dL (12.0-15.5); LYMPH # 0.9 x10^3/uL (1.0-4.8); LYMPH % 12 % (24-48); MEAN CORPUSCULAR HEMOGLOBIN 32 pg (25-35); MEAN CORPUSCULAR HGB CONC 34 g/dL (31-37); MEAN CORPUSCULAR VOLUME 92 fL (79-100); MONO % 14 % (0-9); NEUT # 5.3 x10^3uL (1.8-7.7); NEUT % 70 % (31-73); PLATELET COUNT 327 x10^3/uL (140-400); RED BLOOD COUNT 3.47 x10^6/uL (3.50-5.40); RED CELL DISTRIBUTION WIDTH 14.7 % (11.5-14.5); WHITE BLOOD COUNT 7.6 x10^3/uL (4.0-11.0)
[2018-01-24 04:59] LABS: CALCIUM 8.6 mg/dL (8.5-10.1); CREATININE 0.5 mg/dL (0.6-1.0); GFR 125.4; POTASSIUM 4.3 mmol/L (3.5-5.1)
[2018-01-24 07:00] VITALS: BP 155/92
[2018-01-24] MEDS: BUDESONIDE 0.5 MG/2 ML NEBU. NEB SCH (07:24)
[2018-01-24] MEDS: IPRATRPIUM/ALBUTEROL 0.5/2.5MG 3 ML NEBU. NEB SCH ×2 (07:24→12:34)
[2018-01-24] MEDS ORDERED: PANTOPRAZOLE 40 MG TABLET.DR. PO SCH (07:30)
[2018-01-24] MEDS ORDERED: METO5TAB PO (08:35)
[2018-01-24] MEDS ORDERED: PANT40GR PO (08:35)
[2018-01-24] MEDS ORDERED: CIPR500T94 PO (08:35)
--- NOTE | 2018-01-24 08:37 | PDOC3 ---
Discharge Summary Visit Information Date of Admission: Jan 18, 2018 Date of Discharge: Jan 24, 2018 Admitting Diagnosis Comment: abd pain with N/V, 2/2 gastroparesis colitis COPD stable DM2, scoliosis, restrictive lung htn hld anxiety d/o NOS bronchitis previous smoker stable diastolic CHF ckd3 Final Diagnosis Problems Medical Problems: (1) Abdominal pain Status: Acute (2) Nausea and vomiting Status: Acute Brief Hospital Course Allergies Allergies Coded Allergies Type Severity Reaction Last Updated Verified aspirin Allergy Intermediate 08/10/17 Yes Vital Signs Vital Signs Date Time Temp Pulse Resp B/P (MAP) Pulse Ox O2 Delivery O2 Flow Rate FiO2 01/24/18 07:27 Nasal Cannula 2.0 01/24/18 03:00 97.9 90 18 138/99 (112) 96 97.9 Lab Results Laboratory Tests Test 01/22/18 11:27 01/22/18 16:18 01/22/18 20:45 01/23/18 04:15 Glucose (Fingerstick) 99 mg/dL (70-99) 98 mg/dL (70-99) 130 mg/dL (70-99) White Blood Count 8.4 x10^3/uL (4.0-11.0) Red Blood Count 3.67 x10^6/uL (3.50-5.40) Hemoglobin 11.3 g/dL (12.0-15.5) Hematocrit 33.4 % (36.0-47.0) Mean Corpuscular Volume 91 fL (79-100) Mean Corpuscular Hemoglobin 31 pg (25-35) Mean Corpuscular Hemoglobin Concent 34 g/dL (31-37) Red Cell Distribution Width 14.9 % (11.5-14.5) Platelet Count 333 x10^3/uL (140-400) Neutrophils (%) (Auto) 75 % (31-73) Lymphocytes (%) (Auto) 10 % (24-48) Monocytes (%) (Auto) 11 % (0-9) Eosinophils (%) (Auto) 3 % (0-3) Basophils (%) (Auto) 1 % (0-3) Neutrophils # (Auto) 6.4 x10^3uL (1.8-7.7) Lymphocytes # (Auto) 0.9 x10^3/uL (1.0-4.8) Monocytes # (Auto) 1.0 x10^3/uL (0.0-1.1) Eosinophils # (Auto) 0.2 x10^3/uL (0.0-0.7) Basophils # (Auto) 0.0 x10^3/uL (0.0-0.2) Sodium Level 145 mmol/L (136-145) Potassium Level 3.8 mmol/L (3.5-5.1) Chloride Level 106 mmol/L (98-107) Carbon Dioxide Level 34 mmol/L (21-32) Anion Gap 5 (6-14) Blood Urea Nitrogen 3 mg/dL (7-20) Creatinine 0.5 mg/dL (0.6-1.0) Estimated GFR (Cockcroft-Gault) 125.4 Glucose Level 116 mg/dL (70-99) Calcium Level 8.7 mg/dL (8.5-10.1) Test 01/23/18 08:42 01/23/18 11:53 01/24/18 04:10 Glucose (Fingerstick) 135 mg/dL (70-99) 95 mg/dL (70-99) White Blood Count 7.6 x10^3/uL (4.0-11.0) Red Blood Count 3.47 x10^6/uL (3.50-5.40) Hemoglobin 10.9 g/dL (12.0-15.5) Hematocrit 31.8 % (36.0-47.0) Mean Corpuscular Volume 92 fL (79-100) Mean Corpuscular Hemoglobin 32 pg (25-35) Mean Corpuscular Hemoglobin Concent 34 g/dL (31-37) Red Cell Distribution Width 14.7 % (11.5-14.5) Platelet Count 327 x10^3/uL (140-400) Neutrophils (%) (Auto) 70 % (31-73) Lymphocytes (%) (Auto) 12 % (24-48) Monocytes (%) (Auto) 14 % (0-9) Eosinophils (%) (Auto) 4 % (0-3) Basophils (%) (Auto) 1 % (0-3) Neutrophils # (Auto) 5.3 x10^3uL (1.8-7.7) Lymphocytes # (Auto) 0.9 x10^3/uL (1.0-4.8) Monocytes # (Auto) 1.0 x10^3/uL (0.0-1.1) Eosinophils # (Auto) 0.3 x10^3/uL (0.0-0.7) Basophils # (Auto) 0.0 x10^3/uL (0.0-0.2) Sodium Level 144 mmol/L (136-145) Potassium Level 4.3 mmol/L (3.5-5.1) Chloride Level 106 mmol/L (98-107) Carbon Dioxide Level 36 mmol/L (21-32) Anion Gap 2 (6-14) Blood Urea Nitrogen 4 mg/dL (7-20) Creatinine 0.5 mg/dL (0.6-1.0) Estimated GFR (Cockcroft-Gault) 125.4 Glucose Level 97 mg/dL (70-99) Calcium Level 8.6 mg/dL (8.5-10.1) Laboratory Tests Test 01/23/18 08:42 01/23/18 11:53 01/24/18 04:10 Glucose (Fingerstick) 135 mg/dL (70-99) 95 mg/dL (70-99) White Blood Count 7.6 x10^3/uL (4.0-11.0) Red Blood Count 3.47 x10^6/uL (3.50-5.40) Hemoglobin 10.9 g/dL (12.0-15.5) Hematocrit 31.8 % (36.0-47.0) Mean Corpuscular Volume 92 fL (79-100) Mean Corpuscular Hemoglobin 32 pg (25-35) Mean Corpuscular Hemoglobin Concent 34 g/dL (31-37) Red Cell Distribution Width 14.7 % (11.5-14.5) Platelet Count 327 x10^3/uL (140-400) Neutrophils (%) (Auto) 70 % (31-73) Lymphocytes (%) (Auto) 12 % (24-48) Monocytes (%) (Auto) 14 % (0-9) Eosinophils (%) (Auto) 4 % (0-3) Basophils (%) (Auto) 1 % (0-3) Neutrophils # (Auto) 5.3 x10^3uL (1.8-7.7) Lymphocytes # (Auto) 0.9 x10^3/uL (1.0-4.8) Monocytes # (Auto) 1.0 x10^3/uL (0.0-1.1) Eosinophils # (Auto) 0.3 x10^3/uL (0.0-0.7) Basophils # (Auto) 0.0 x10^3/uL (0.0-0.2) Sodium Level 144 mmol/L (136-145) Potassium Level 4.3 mmol/L (3.5-5.1) Chloride Level 106 mmol/L (98-107) Carbon Dioxide Level 36 mmol/L (21-32) Anion Gap 2 (6-14) Blood Urea Nitrogen 4 mg/dL (7-20) Creatinine 0.5 mg/dL (0.6-1.0) Estimated GFR (Cockcroft-Gault) 125.4 Glucose Level 97 mg/dL (70-99) Calcium Level 8.6 mg/dL (8.5-10.1) Brief Hospital Course Ms. Moncada is a 62 old white female known to us for COPD exacerbation hospitalization, but this time coming in because of colitis on CAT scan. Better with IV Cipro. COPD was stable. Some nausea and emesis gastric imaging test showed delayed findings. Started on Reglan. I have Rx'd Reglan and Cipro for 4 more days. We'll get total of 10 days of antibiotics. She still has her prescriptions for inhalers. Consults performed pulmonary, GI Procedures performed CAT scan of abdomen and pelvis and gastric emptying test Discharge time less than 30 minutes Patient seen and examined, Rx on chart Discharge Information Condition at Discharge: Improved, Stable Disposition/Orders: D/C to Home Scheduled Albuterol Sulfate (Albuterol Sulfate Neb Soln) 2.5 Mg/3 Ml Vial.neb, 1 VIAL NEB PRN Q4HRS for asthma, #50 (Reported) Entered as Reported by: BILL GUTIERREZ on 03/24/172028 Albuterol Sulfate (Albuterol Sulfate Neb Soln) 2.5 Mg/3 Ml Vial.neb, 1 VIAL NEB BID for asthma, #50 (Reported) Entered as Reported by: Dieter Patel on 08/11/17 8458 Last Action: HELD on 01/18/18 0876 by CLAUDETTE QUIGLEY MD Benzonatate (Benzonatate) 100 Mg Capsule, 1 CAP PO TID for cough, (Reported) Entered as Reported by: PETRA DELONG RN on 10/23/17 1101 Last Action: HELD on 01/18/181645 by CLAUDETTE QUIGLEY MD Budesonide/Formoterol Fumarate (Symbicort 160-4.5 Mcg Inhaler) 10.2 Gm Hfa.aer.ad, 1 PUFF IH BID for asthma, (Reported) Entered as Reported by: DAENTTE MERCADO on 08/16/161658 Last Action: Converted on 01/18/181645 by CLAUDETTE QUIGLEY MD Cholecalciferol (Vitamin D3) (Vitamin D) 50,000 Unit Capsule, 50,000 UNIT PO WEEKLY for supplement, (Reported) Entered as Reported by: DANETTE MERCADO on 08/16/161658 Last Action: Converted on 01/18/181645 by CLAUDETTE QUIGLEY MD Ciprofloxacin Hcl (Cipro) 500 Mg Tablet, 1 TAB PO BID, #8 Prescribed by: GARYR DUBON on 01/24/18 0835 Diltiazem Hcl (Diltiazem 24HR Cd) 120 Mg Cap.er.24h, 120 MG PO DAILY for HTN, ( Reported) Entered as Reported by: Antwan Simmons on 07/23/13 1753 Last Action: Continued on 01/18/181645 by CLAUDETTE QUIGLEY MD Glimepiride (Glimepiride) 1 Mg Tablet, 1 MG PO DAILY for diabetes, (Reported) Entered as Reported by: DANETTE MERCADO on 08/16/161658 Last Action: HELD on 01/18/181645 by CLAUDETTE QUIGLEY MD Guaifenesin (Mucinex) 600 Mg Tablet.er, 1 TAB PO BID for congestion, #20 ( Reported) Entered as Reported by: DANETTE MERCADO on 08/16/161658 Last Action: Continued on 01/18/181645 by CLAUDETTE QUIGLEY MD Losartan Potassium (Losartan Potassium) 50 Mg Tablet, 50 MG PO DAILY for HTN, ( Reported) Entered as Reported by: DANETTE MERCADO on 08/16/161651 Last Action: Continued on 01/18/181645 by CLAUDETTE QUIGLEY MD Montelukast Sodium (Singulair Tablet) 10 Mg Tablet, 10 MG PO HS for allergies, ( Reported) Entered as Reported by: Antwan Simmons on 07/23/131752 Last Action: Converted on 01/18/181645 by CLAUDETTE QUIGLEY MD Oxybutynin Chloride (Ditropan Xl) 5 Mg Tab.er.24, 5 MG PO DAILY for bladder, ( Reported) Entered as Reported by: DANETTE MERCADO on 08/16/161658 Last Action: Converted on 01/18/181645 by CLAUDETTE QUIGLEY MD Pantoprazole Sodium (Protonix) 40 Mg Granpkt.dr, 40 MG PO DAILY for GERD for 30 Days, #30 Prescribed by: GARRY DUBON on 01/24/18 0835 Simvastatin (Simvastatin) 10 Mg Tablet, 10 MG PO HS for FOR CHOLESTEROL, #30 Ref 0 (Reported) Entered as Reported by: DANETTE MERCADO on 08/16/161651 Last Action: Continued on 01/18/181645 by CLAUDETTE QUIGLEY MD Tiotropium [place] (Spiriva) 18 Mcg Cap.w.dev, 18 MCG IH DAILY for asthma, ( Reported) Entered as Reported by: Antwan Simmons on 07/23/131752 Last Action: Converted on 01/18/181645 by CLAUDETTE QUIGLEY MD Tizanidine Hcl (Tizanidine Hcl) 4 Mg Tablet, 1 TAB PO BID for muscle relaxer, # 60 (Reported) Entered as Reported by: Dieter Patel on 08/11/17247 Last Action: Converted on 01/18/181645 by CLAUDETTE QUIGLEY MD Scheduled PRN Albuterol Sulfate (Proair Hfa Inhaler) 8.5 Gm Hfa.aer.ad, 17 GM IH Q4HRS W/A PRN for wheezing, (Reported) Entered as Reported by: Antwan Simmons on 07/23/131752 Last Action: HELD on 01/18/181645 by CLAUDETTE QUIGLEY MD Hydrocodone Bit/Acetaminophen (Hydrocodone-Apap 7.5-325 ) 1 Each Tablet, 1 TAB PO PRN Q6HRS PRN for PAIN, Ref 0 (Reported) Entered as Reported by: BECCA LE on 01/20/18347 Last Action: New Order on 01/20/18347 by BECCA LE Metoclopramide Hcl (Metoclopramide Hcl) 5 Mg Tablet, 5 MG PO PRN BFRMEALHC PRN for NAUSEA/VOMITING, #60 Prescribed by: GARRY DUBON on 01/24/18 0835 Ondansetron Hcl (Zofran) 4 Mg Tablet, 1 TAB PO Q8HRS PRN for NAUSEA, #20 Prescribed by: RANDALL KNIGHT D.O. on 10/26/15 2318 Last Action: HELD on 01/18/18 1646 by MD JAGDISH FLAHERTY CHERRIE Y MD Jan 24, 2018 08:37
[2018-01-24] MEDS: OXYBUTYNIN CHLORIDE 5 MG TABLET PO SCH (09:18)
[2018-01-24] MEDS: tiZANidine 4 MG TABLET. PO SCH (09:18)
[2018-01-24] MEDS: LOSARTAN POTASSIUM 50 MG TABLET. PO SCH (09:18)
[2018-01-24] MEDS: METOCLOPRAMIDE HCL 10 MG/2 ML VIAL. IV SCH ×2 (09:19→12:16)
[2018-01-24] MEDS: traMADol 50 MG TABLET PO PRN (09:30)
[2018-01-24 11:00] VITALS: BP 119/74
[2018-01-24] MEDS: oxyCODONE/APAP 5/325 1 TAB TABLET PO PRN (12:24)
--- NOTE | 2018-01-24 14:50 | PDOC ---
Subjective: Subjective: Pt is feeling much better today. She currently denies abdominal pain, N/V. She was started on Reglan yesterday after GES showed delayed gastric emptying with T 1/2 time of 146 minutes. Pt is being discharged today. Objective: Vital Signs: Vital Signs Date Time Temp Pulse Resp B/P (MAP) Pulse Ox O2 Delivery O2 Flow Rate FiO2 01/24/18 12:34 Room Air 01/24/18 12:24 97 1.0 01/24/18 11:00 96.8 91 20 119/74 (89) 96.8 Labs: Laboratory Tests Test 01/24/18 04:10 White Blood Count 7.6 x10^3/uL Red Blood Count 3.47 x10^6/uL Hemoglobin 10.9 g/dL Hematocrit 31.8 % Mean Corpuscular Volume 92 fL Mean Corpuscular Hemoglobin 32 pg Mean Corpuscular Hemoglobin Concent 34 g/dL Red Cell Distribution Width 14.7 % Platelet Count 327 x10^3/uL Neutrophils (%) (Auto) 70 % Lymphocytes (%) (Auto) 12 % Monocytes (%) (Auto) 14 % Eosinophils (%) (Auto) 4 % Basophils (%) (Auto) 1 % Neutrophils # (Auto) 5.3 x10^3uL Lymphocytes # (Auto) 0.9 x10^3/uL Monocytes # (Auto) 1.0 x10^3/uL Eosinophils # (Auto) 0.3 x10^3/uL Basophils # (Auto) 0.0 x10^3/uL Sodium Level 144 mmol/L Potassium Level 4.3 mmol/L Chloride Level 106 mmol/L Carbon Dioxide Level 36 mmol/L Anion Gap 2 Blood Urea Nitrogen 4 mg/dL Creatinine 0.5 mg/dL Estimated GFR (Cockcroft-Gault) 125.4 Glucose Level 97 mg/dL Calcium Level 8.6 mg/dL Current Medications Medications (Trade) Dose Ordered Sig/Thanh Route PRN Reason Start Time Stop Time Status Last Admin Dose Admin Sodium Chloride 500 ml @ 500 mls/hr 1X ONCE IV 01/18/18 15:15 01/18/18 16:14 DC 01/18/18 15:30 Ondansetron HCl (Zofran) 4 mg 1X ONCE IV 01/18/18 15:15 01/18/18 15:18 DC 01/18/18 15:24 Fentanyl Citrate (Fentanyl 2ml Vial) 25 mcg 1X ONCE IV 01/18/18 15:15 01/18/18 15:18 DC 01/18/18 15:25 Fentanyl Citrate (Fentanyl 2ml Vial) 50 mcg 1X ONCE IV 01/18/18 16:15 01/18/18 16:16 DC 01/18/18 16:26 Ondansetron HCl (Zofran) 4 mg PRN Q8HRS PRN IV NAUSEA/VOMITING 01/18/18 16:30 01/19/18 16:29 DC Fentanyl Citrate (Fentanyl 2ml Vial) 25 mcg PRN Q3HRS PRN IV PAIN 01/18/18 16:30 01/19/18 16:29 DC Iohexol (Omnipaque 300 Mg/ml) 60 ml 1X ONCE IV 01/18/18 16:45 01/18/18 16:46 DC 01/18/18 16:58 Info (CONTRAST GIVEN -- Rx MONITORING) 1 each PRN DAILY PRN MC SEE COMMENTS 01/18/18 16:45 01/20/18 16:44 DC Diltiazem HCl (Cardizem 24hr Cd) 120 mg DAILY PO 01/19/18 09:00 01/24/18 14:28 DC 01/24/18 09:17 Guaifenesin (Mucinex) 600 mg BID PO 01/18/18 21:00 01/24/18 14:28 DC 01/24/18 09:17 Losartan Potassium (Cozaar) 50 mg DAILY PO 01/19/18 09:00 01/24/18 14:28 DC 01/24/18 09:18 Simvastatin (Zocor) 10 mg HS PO 01/18/18 21:00 01/24/18 14:28 DC 01/23/18 20:36 Budesonide (Pulmicort) 0.5 mg RTBID NEB 01/18/18 20:00 01/24/18 14:28 DC 01/24/18 07:24 Ergocalciferol (Vitamin D2) 50,000 unit WEEKLY PO 01/25/18 09:00 01/25/18 09:00 DC Montelukast Sodium (Singulair) 10 mg QHS PO 01/18/18 21:00 01/24/18 14:28 DC 01/23/18 20:36 Oxybutynin Chloride (Ditropan) 5 mg DAILY PO 01/19/18 09:00 01/24/18 14:28 DC 01/24/18 09:18 Non-Formulary Medication (Pantoprazole Sodium (Protonix)) 40 mg DAILY PO 01/19/18 09:00 01/19/18 09:00 DC Albuterol/ Ipratropium (Duoneb) 3 ml RTQID NEB 01/18/18 20:00 01/24/18 14:28 DC 01/24/18 12:34 Tizanidine HCl (Zanaflex) 4 mg BID PO 01/18/18 21:00 01/24/18 14:28 DC 01/24/18 09:18 Albuterol Sulfate (Ventolin Neb Soln) 2.5 mg PRN Q4HRS PRN NEB SHORTNESS OF BREATH 01/18/18 16:45 01/24/18 14:28 DC 01/18/18 17:16 Acetaminophen (Tylenol) 650 mg PRN Q6HRS PRN PO FEVER 01/18/18 16:45 01/24/18 14:28 DC 01/21/18 21:25 Ondansetron HCl (Zofran) 4 mg PRN Q6HRS PRN IV NAUSEA/VOMITING 01/18/18 16:45 01/24/18 14:28 DC 01/21/18 10:59 Morphine Sulfate (Morphine Sulfate) 2 mg PRN Q2HR PRN IV MODERATE TO SEVERE PAIN 01/18/18 16:45 01/24/18 14:28 DC 01/21/18 13:05 Tramadol HCl (Ultram) 50 mg PRN Q6HRS PRN PO MILD TO MODERATE PAIN 01/18/18 16:45 01/24/18 14:28 DC 01/24/18 09:30 Docusate Sodium (Colace) 100 mg PRN DAILY PRN PO CONSTIPATION 01/18/18 16:45 01/24/18 14:28 DC Enoxaparin Sodium (Lovenox 40mg Syringe) 40 mg Q24H SQ 01/18/18 20:00 01/24/18 14:28 DC 01/23/18 20:40 Pantoprazole Sodium (PROTONIX VIAL for IV PUSH) 40 mg DAILYAC IVP 01/18/18 17:00 01/23/18 12:04 DC 01/23/18 08:42 Sodium Chloride 1,000 ml @ 75 mls/hr [id number] IV 01/18/18 17:00 01/22/18 09:01 DC 01/22/18 02:23 Dextrose (Dextrose 50%-Water Syringe) 12.5 gm PRN Q15MIN PRN IV SEE COMMENTS 01/18/18 21:45 01/24/18 14:28 DC Ketorolac Tromethamine (Toradol 30mg Vial) 30 mg PRN 1X PRN IM headache 01/20/18 00:15 01/20/18 00:19 DC Prochlorperazine Edisylate (Compazine) 10 mg 1X ONCE IV 01/20/18 00:15 01/20/18 00:16 DC 01/20/18 00:19 Ketorolac Tromethamine (Toradol 30mg Vial) 30 mg PRN 1X PRN IV headache 01/20/18 00:18 01/24/18 14:28 DC 01/20/18 00:29 Oseltamivir Phosphate (Tamiflu) 75 mg BID PO 01/20/18 13:00 01/21/18 11:41 DC 01/20/18 20:41 Oxycodone/ Acetaminophen (Percocet 5/325) 1 tab PRN Q4HRS PRN PO SEVERE PAIN 01/20/18 12:45 01/24/18 14:28 DC 01/24/18 12:24 Metoclopramide HCl (Reglan) 5 mg PRN BFRMEALHC PRN PO NAUSEA/VOMITING 01/21/18 16:45 01/24/18 14:28 DC Potassium Chloride/Dextrose/ Sod Cl 1,000 ml @ 75 mls/hr [id number] IV 01/22/18 09:00 01/24/18 14:28 DC 01/24/18 00:23 Metoclopramide HCl (Reglan Vial) 5 mg QIDACHS IV 01/22/18 11:30 01/24/18 14:28 DC 01/24/18 12:16 Pantoprazole Sodium (Protonix) 40 mg DAILYAC PO 01/24/18 07:30 01/24/18 14:28 DC 01/24/18 09:18 PE: GEN: NAD HEENT: Atraumatic, PERRLA LUNGS: CTAB HEART: RRR, no murmurs ABD: NABS, S/ND/NT, no masses EXTREMITY: No edema SKIN: No rashes, no jaundice NEURO/PSYCH: A & O 3 A/P: Gastroparesis- T 1/2 time calculated at 146 min on recent GES -Pt was started on Reglan while inpatient -Recommend small, frequent meals throughout day, low-fiber, low-fat when discharged -Recommend f/u in the office ?h/o duodenal adenoma CRC screen - last colonoscopy 2013? S/p cholecystectomy -- Consider SBS and possibly colonoscopy as outpatient JOSELO BARRERA Jan 24, 2018 14:50
[2018-01-25] MEDS ORDERED: ERGOCALCIFEROL (VITAMIN D2) 50,000 UNIT CAPSULE. PO SCH (09:00)
== END 2018-01-24 14:00 | disposition home or self-care (01) | DRG 73 ==
LOC: ER 14:28 → 5 NORTH 16:27
PROVIDERS: ADMIT Internal Medicine; ATTEND Internal Medicine
DX: E11.43 Type 2 diabetes mellitus with diabetic autonomic (poly)neuropathy (principal); N17.0 Acute kidney failure with tubular necrosis; J96.01 Acute respiratory failure with hypoxia; I13.0 Hypertensive heart and chronic kidney disease with heart failure and stage 1 through stage 4 chronic kidney disease, or unspecified chronic kidney disease; I50.30 Unspecified diastolic (congestive) heart failure; K29.70 Gastritis, unspecified, without bleeding; E11.22 Type 2 diabetes mellitus with diabetic chronic kidney disease; Z96.641 Presence of right artificial hip joint; N18.3 Chronic kidney disease, stage 3 (moderate); M19.90 Unspecified osteoarthritis, unspecified site; F41.9 Anxiety disorder, unspecified; E78.5 Hyperlipidemia, unspecified; K52.9 Noninfective gastroenteritis and colitis, unspecified; K86.89 Other specified diseases of pancreas; K76.89 Other specified diseases of liver; E78.00 Pure hypercholesterolemia, unspecified; G89.29 Other chronic pain; I25.10 Atherosclerotic heart disease of native coronary artery without angina pectoris; M41.9 Scoliosis, unspecified; I48.91 Unspecified atrial fibrillation; J44.9 Chronic obstructive pulmonary disease, unspecified; K31.84 Gastroparesis; K21.9 Gastro-esophageal reflux disease without esophagitis; Z79.4 Long term (current) use of insulin; Z79.51 Long term (current) use of inhaled steroids; Z82.49 Family history of ischemic heart disease and other diseases of the circulatory system; Z90.49 Acquired absence of other specified parts of digestive tract; Z87.891 Personal history of nicotine dependence; Z90.5 Acquired absence of kidney; Z91.81 History of falling; Z90.721 Acquired absence of ovaries, unilateral; Z79.899 Other long term (current) drug therapy; Z88.6 Allergy status to analgesic agent
CPT/HCPCS: 36415; 74177; 78264; 80048; 80053; 81001; 82962; 83690; 83735; 83880; 84145; 84484; 85025; 87086; 87804; 93005; 94640; 94760; 96361; 96374; 96375; 96376; A9541; C9113; J0780; J1650; J1885; J2270; J2405; J2765; J3010; J7030; J7040; J7613; J7620; J7626; P9612; Q9967; 99285-25

== ENCOUNTER 2018-06-13 15:56 | Inpatient (IN) | payer OTHER ==
[~2018-06-13] VITALS: Ht 149.9 cm; Wt 57.4 kg
[~2018-06-13 15:56] MED LIST changes: +ALBU2.5V8 IH; +AMOX1TAB58 PO; +CIPR500T94 PO; -DILT120C80 PO; +DILT120C85 PO; -HYDR-2762 PO; +HYDR-2765 PO; +HYDR-3164 PO; -HYDR-971 PO; +LOSA-73 PO; -LOSA25TA5 PO; +LOSA25TA54 PO; -LOSA50TA7 PO; +METO5TAB PO; -PROAIR HFA8.5 GM IH
[2018-06-13] MEDS ORDERED: IPRATRPIUM/ALBUTEROL 0.5/2.5MG 3 ML NEBU. NEB ONE (17:15)
[2018-06-13] MEDS ORDERED: methylPREDNISolone SOD SUCC PF 125 MG/2 ML VIAL. IV ONE (17:15)
[2018-06-13 17:24] LABS: BASO # 0.1 x10^3/uL (0.0-0.2); BASO % 1 % (0-3); EOS # 0.3 x10^3/uL (0.0-0.7); EOS % 4 % (0-3); HEMATOCRIT 36.9 % (36.0-47.0); HEMOGLOBIN 11.9 g/dL (12.0-15.5); LYMPH # 1.2 x10^3/uL (1.0-4.8); LYMPH % 17 % (24-48); MEAN CORPUSCULAR HEMOGLOBIN 28 pg (25-35); MEAN CORPUSCULAR HGB CONC 32 g/dL (31-37); MEAN CORPUSCULAR VOLUME 86 fL (79-100); MONO # 0.9 x10^3/uL (0.0-1.1); MONO % 13 % (0-9); NEUT # 4.3 x10^3uL (1.8-7.7); NEUT % 64 % (31-73); PLATELET COUNT 498 x10^3/uL (140-400); RED BLOOD COUNT 4.28 x10^6/uL (3.50-5.40); RED CELL DISTRIBUTION WIDTH 15.8 % (11.5-14.5); WHITE BLOOD COUNT 6.6 x10^3/uL (4.0-11.0)
[2018-06-13 17:33] LABS: CALCIUM 9.1 mg/dL (8.5-10.1); CREATININE 0.7 mg/dL (0.6-1.0); GFR 85.1
--- NOTE | 2018-06-13 17:41 | RAD ---
EXAM: Chest, single view. HISTORY: Shortness of breath. COMPARISON: 03/20/2018 FINDINGS: A single view of the chest is obtained. There is oblique patient positioning due to severe thoracic kyphoscoliosis. There is mild diffuse increased interstitial opacity suggesting pelvic congestion. No consolidation, pleural effusion or pneumothorax is seen. There is a stable prominent cardiac silhouette. IMPRESSION: 1. Diffuse central predominant increased interstitial opacity suggesting pulmonary congestion. No consolidated infiltrate is seen. 2. Prominent cardiac silhouette, likely accentuated due to severe thoracic kyphoscoliosis. Electronically signed by: Estrella Hawthorne MD (06/13/2018 5:39 PM) [id number]
[2018-06-13 17:47] LABS: ALBUMIN 3.6 g/dL (3.4-5.0); TOTAL BILIRUBIN 0.3 mg/dL (0.2-1.0); TOTAL PROTEIN 7.3 g/dL (6.4-8.2)
--- NOTE | 2018-06-13 17:47 | PHYS DOC ---
Past Medical History Past Medical History: Anxiety, Asthma, COPD, Diabetes-Type I, High Cholesterol , Heart Disease, Hypertension Additional Past Medical Histor: SCOLIOSIS Past Surgical History: Hip Replacement Additional Past Surgical Histo: R hip, Upper L kidney removed, 5 back surgeries due to fall Alcohol Use: Occasionally Drug Use: None Adult General Chief Complaint Chief Complaint: SHORTNESS OF BREATH HPI HPI 62-year-old female with a history of COPD presents with increasing shortness of breath over the last 2-3 days. Patient states her was sick with the same. She denies any fever chills or sweats. She states she has had a cough that has been nonproductive. She states she has taken 6 nebulized treatments today without relief of her shortness of breath.[] Review of Systems Review of Systems Constitutional: Denies fever or chills [] Eyes: Denies change in visual acuity, redness, or eye pain [] HENT: Denies nasal congestion or sore throat [] Respiratory: Per history of present illness[] Cardiovascular: No additional information not addressed in HPI [] GI: Denies abdominal pain, nausea, vomiting, bloody stools or diarrhea [] : Denies dysuria or hematuria [] Musculoskeletal: Denies back pain or joint pain [] Integument: Denies rash or skin lesions [] Neurologic: Denies headache, focal weakness or sensory changes [] Endocrine: Denies polyuria or polydipsia [] All other systems were reviewed and found to be within normal limits, except as documented in this note. Current Medications Current Medications Current Medications Medications (Trade) Dose Ordered Sig/Thanh Start Time Stop Time Status Last Admin Dose Admin Albuterol/ Ipratropium (Duoneb) 6 ml 1X ONCE 06/13/18 17:15 06/13/18 17:16 DC Methylprednisolone Sodium Succinate (SOLU-Medrol 125MG VIAL) 125 mg 1X ONCE 06/13/18 17:15 06/13/18 17:16 DC Allergies Allergies Allergies Coded Allergies Type Severity Reaction Last Updated Verified aspirin Allergy Intermediate 06/13/18 Yes Physical Exam Physical Exam Constitutional: Well developed, well nourished, mild respiratory distress, non- toxic appearance. [] HENT: Normocephalic, atraumatic, bilateral external ears normal, oropharynx moist, no oral exudates, nose normal. [] Eyes: PERRLA, EOMI, conjunctiva normal, no discharge. [] Neck: Normal range of motion, no tenderness, supple, no stridor. [] Cardiovascular:Heart rate regular rhythm, no murmur [] Lungs & Thorax: Diminished breath sounds on the right diffuse coarse wheezes on the left[] Abdomen: Bowel sounds normal, soft, no tenderness, no masses, no pulsatile masses. [] Skin: Warm, dry, no erythema, no rash. [] Back: No tenderness, no CVA tenderness. [] Extremities: No tenderness, no cyanosis, no clubbing, ROM intact, no edema. [] Neurologic: Alert and oriented X 3, normal motor function, normal sensory function, no focal deficits noted. [] Psychologic: Depressed affect[] Current Patient Data Vital Signs Vital Signs Date Time Temp Pulse Resp B/P (MAP) Pulse Ox O2 Delivery O2 Flow Rate FiO2 06/13/18 17:00 98.2 96 20 132/79 (96) 88 Room Air 98.2 Lab Values Laboratory Tests Test 06/13/18 17:10 White Blood Count 6.6 x10^3/uL (4.0-11.0) Red Blood Count 4.28 x10^6/uL (3.50-5.40) Hemoglobin 11.9 g/dL (12.0-15.5) L Hematocrit 36.9 % (36.0-47.0) Mean Corpuscular Volume 86 fL (79-100) Mean Corpuscular Hemoglobin 28 pg (25-35) Mean Corpuscular Hemoglobin Concent 32 g/dL (31-37) Red Cell Distribution Width 15.8 % (11.5-14.5) H Platelet Count 498 x10^3/uL (140-400) H Neutrophils (%) (Auto) 64 % (31-73) Lymphocytes (%) (Auto) 17 % (24-48) L Monocytes (%) (Auto) 13 % (0-9) H Eosinophils (%) (Auto) 4 % (0-3) H Basophils (%) (Auto) 1 % (0-3) Neutrophils # (Auto) 4.3 x10^3uL (1.8-7.7) Lymphocytes # (Auto) 1.2 x10^3/uL (1.0-4.8) Monocytes # (Auto) 0.9 x10^3/uL (0.0-1.1) Eosinophils # (Auto) 0.3 x10^3/uL (0.0-0.7) Basophils # (Auto) 0.1 x10^3/uL (0.0-0.2) Sodium Level 140 mmol/L (136-145) Potassium Level 4.0 mmol/L (3.5-5.1) Chloride Level 97 mmol/L (98-107) L Carbon Dioxide Level 36 mmol/L (21-32) H Anion Gap 7 (6-14) Blood Urea Nitrogen 10 mg/dL (7-20) Creatinine 0.7 mg/dL (0.6-1.0) Estimated GFR (Cockcroft-Gault) 85.1 BUN/Creatinine Ratio 14 (6-20) Glucose Level 98 mg/dL (70-99) Calcium Level 9.1 mg/dL (8.5-10.1) Total Bilirubin Pending Aspartate Amino Transferase (AST) Pending Alanine Aminotransferase (ALT) Pending Alkaline Phosphatase Pending Total Protein Pending Albumin Pending Albumin/Globulin Ratio Pending Laboratory Tests 06/13/18 17:10 Laboratory Tests 06/13/18 17:10 EKG EKG [] Radiology/Procedures Radiology/Procedures [] Impressions: Chest x-ray: Severe scoliosis collapsing of the right lung hyperexpanded left lung with no obvious infiltrate as interpreted by me Course & Med Decision Making Course & Med Decision Making Pertinent Labs and Imaging studies reviewed. (See chart for details) [ED course: Evaluation reveals a 62-year-old female with COPD. On arrival she had oxygen saturations in the mid 80s. She was given IV Solu-Medrol and 2 DuoNeb nebs with some improvement in her symptoms are she continued to desaturate below 90% without oxygen. Not have oxygen at home. I will go ahead and admit her to the hospital for aggressive respiratory treatment.] Dragon Disclaimer Dragon Disclaimer This electronic medical record was generated, in whole or in part, using a voice recognition dictation system. Departure Departure Impression: Primary Impression: COPD exacerbation Disposition: 09 ADMITTED INPATIENT Admitting Physician: Lyn Jain Condition: GUARDED Referrals: JACKIE REESE MD (PCP) RANDALL KNIGHT DO Jun 13, 2018 17:47
[2018-06-13 17:56] LABS: INFLUENZA A PATIENT NEGATIVE (NEGATIVE); INFLUENZA B PATIENT NEGATIVE (NEGATIVE)
[2018-06-13] MEDS ORDERED: ONDANSETRON PF 4 MG/2 ML VIAL. IV PRN ×2 (18:00→18:30)
[2018-06-13] MEDS ORDERED: diphenhydrAMINE HCL 25 MG CAPSULE PO PRN (18:30)
[2018-06-13] MEDS ORDERED: METOCLOPRAMIDE 5 MG TABLET. PO PRN (18:30)
[2018-06-13] MEDS ORDERED: ALBUTEROL SULFATE 2.5 MG/3 ML NEBU. NEB PRN (18:30)
[2018-06-13] MEDS ORDERED: cloNIDine HCL 0.1 MG TABLET PO PRN (18:30)
[2018-06-13] MEDS ORDERED: ACETAMINOPHEN 500 MG TABLET PO PRN (18:30)
[2018-06-13] MEDS ORDERED: ONDANSETRON ODT 4 MG TAB.RAPDIS. PO PRN (18:45)
--- NOTE | 2018-06-13 19:04 | PDOC1 ---
History and Physical Date of Admission Date of Admission DATE: 06/13/18 TIME: 19:00 Identification/Chief Complaint Chief Complaint S OA Source Source: Caregiver, Chart review, Patient History of Present Illness History of Present Illness 62-year-old female known to us, history of COPD on inhalers, nonsmoker , severe kyphoscoliosis when she had an accident as a child when she fell off her window 2 stories high Also possibly mild CHF on hx ?, SOA today. No pneumonia on chest x-ray but maybe pulmo congestion. She lives at home with also a sickly No recent sick contacts or fevers or travels. Admitted for COPD exacerbation and maybe a touch of CHF Last hospitalization was last yr, no recent echo Past Medical History Cardiovascular: CAD, CHF, HTN, Hyperlipidemia Pulmonary: Asthma, COPD CENTRAL NERVOUS SYSTEM: Vertigo, Other GI: GERD Heme/Onc: No pertinent hx Hepatobiliary: No pertinent hx Psych: No pertinent hx Musculoskeletal: Osteoarthritis, Other Rheumatologic: No pertinent hx Infectious disease: No pertinent hx Renal/: No pertinent hx Endocrine: Diabetes Past Surgical History Past Surgical History: Total hip replacement, Other Family History Family History: Cancer, Heart Disease, Hypertension Social History Smoke: No ALCOHOL: none Drugs: None Current Medications Current Medications Current Medications Albuterol/ Ipratropium (Duoneb) 6 ml 1X ONCE NEB Last administered on at 17:41; Start 06/13/18 at 17:15; Stop 06/13/18 at 17:16; Status DC Methylprednisolone Sodium Succinate (SOLU-Medrol 125MG VIAL) 125 mg 1X ONCE IV ; Start 06/13/18 at 17:15; Stop 06/13/18 at 17:16; Status DC Ondansetron HCl (Zofran) 4 mg PRN Q8HRS PRN IV NAUSEA/VOMITING; Start 06/13/18 at 18:00; Stop 06/13/18 at 18:22; Status DC Albuterol/ Ipratropium (Duoneb) 3 ml RTQID NEB ; Start 06/13/18 at 20:00; Stop 06/13/18 at 20:00; Status DC Methylprednisolone Sodium Succinate (SOLU-Medrol 40MG VIAL) 40 mg Q8HRS IV ; Start 06/13/18 at 22:00; Stop 06/14/18 at 22:00 Ondansetron HCl (Zofran) 4 mg PRN Q6HRS PRN IV NAUSEA/VOMITING; Start 06/13/18 at 18:30 Guaifenesin (Robitussin Dm) 10 ml PRN Q6HRS PRN PO COUGH; Start 06/13/18 at 18: 30 Acetaminophen (Tylenol) 500 mg PRN Q6HRS PRN PO MILD PAIN / TEMP; Start at 18:30 Acetaminophen/ Codeine Phosphate (Tylenol #3) 1 tab PRN Q6HRS PRN PO PAIN; Start 06/13/18 at 18:30 Benzonatate (Tessalon Perle) 100 mg [id number] PO ; Start 06/13/18 at 21:00 Diphenhydramine HCl (Benadryl) 25 mg PRN QHS PRN PO INSOMNIA; Start 06/13/18 at 18:30 Clonidine HCl (Catapres) 0.1 mg PRN Q1HR PRN PO HYPERTENSION, SEE COMMENTS; Start 06/13/18 at 18:30 Albuterol Sulfate (Ventolin Neb Soln) 2.5 mg PRN Q4HRS PRN NEB soa; Start 06/13 at 18:30 Losartan Potassium (Cozaar) 50 mg DAILY PO ; Start 06/14/18 at 09:00 Metoclopramide HCl (Reglan) 5 mg PRN BFRMEALHC PRN PO NAUSEA/VOMITING; Start at 18:30 Simvastatin (Zocor) 10 mg HS PO ; Start 06/13/18 at 21:00 Ergocalciferol (Vitamin D2) 50,000 unit WEEKLY PO ; Start 06/20/18 at 09:00 Diltiazem HCl (Cardizem 24hr Cd) 120 mg DAILY PO ; Start 06/14/18 at 09:00 Glimepiride (Amaryl) 1 mg DAILY PO ; Start 06/14/18 at 09:00 Montelukast Sodium (Singulair) 10 mg QHS PO ; Start 06/13/18 at 21:00 Ondansetron HCl (Zofran Odt) 4 mg PRN Q8HRS PRN PO NAUSEA/VOMITING, 1ST CHOICE PO; Start 06/13/18 at 18:45 Oxybutynin Chloride (Ditropan) 2.5 mg BID PO ; Start 06/13/18 at 21:00 Pantoprazole Sodium (Protonix) 40 mg DAILYAC PO ; Start 06/14/18 at 07:30 Albuterol/ Ipratropium (Duoneb) 3 ml RTQID NEB ; Start 06/13/18 at 20:00 Tizanidine HCl (Zanaflex) 4 mg BID PO ; Start 06/13/18 at 21:00 Active Scripts Active Augmentin 500-125 Tablet (Amoxicillin/Potassium Clav) 1 Each Tablet 1 Tab PO BID Metoclopramide Hcl 5 Mg Tablet 5 Mg PO PRN BFRMEALHC PRN Protonix (Pantoprazole Sodium) 40 Mg Granpkt.dr 40 Mg PO DAILY 30 Days Zofran (Ondansetron Hcl) 4 Mg Tablet 1 Tab PO Q8HRS PRN Reported Benzonatate 100 Mg Capsule 1 Cap PO TID Albuterol Sulfate Neb Soln (Albuterol Sulfate) 2.5 Mg/3 Ml Vial.neb 1 Vial NEB BID Tizanidine Hcl 4 Mg Tablet 1 Tab PO BID Albuterol Sulfate Neb Soln (Albuterol Sulfate) 2.5 Mg/3 Ml Vial.neb 1 Vial NEB PRN Q4HRS Mucinex (Guaifenesin) 600 Mg Tablet.er 1 Tab PO BID Glimepiride 1 Mg Tablet 1 Mg PO DAILY Symbicort 160-4.5 Mcg Inhaler (Budesonide/Formoterol Fumarate) 10.2 Gm Hfa.aer.ad 1 Puff IH BID Vitamin D (Cholecalciferol (Vitamin D3)) 50,000 Unit Capsule 50,000 Unit PO WEEKLY Ditropan Xl (Oxybutynin Chloride) 5 Mg Tab.er.24 5 Mg PO DAILY Losartan Potassium 50 Mg Tablet 50 Mg PO DAILY Simvastatin 10 Mg Tablet 10 Mg PO HS Proair Hfa Inhaler (Albuterol Sulfate) 8.5 Gm Hfa.aer.ad 17 Gm IH Q4HRS W/A PRN Spiriva (Tiotropium [place]) 18 Mcg Cap.w.dev 18 Mcg IH DAILY Singulair Tablet (Montelukast Sodium) 10 Mg Tablet 10 Mg PO HS Diltiazem 24HR Cd (Diltiazem Hcl) 120 Mg Cap.er.24h 120 Mg PO DAILY Allergies Allergies: Coded Allergies: aspirin (Verified Allergy, Intermediate, 06/13/18) TRIGGER ASTHMA ROS Review of System As per history of present illness, the rest of ROS negative Physical Exam General: No acute distress HEENT: Atraumatic, PERRLA Lungs: Normal air movement, Other (sinus tachycardia, diminished bases, wheezy , symmetric chest expansion,) Heart: no thrills, no rubs, no gallops, no murmurs, other (sinus tachycardia) Cardiovascular: S1, S2 Breasts: Normal, Rt breast nml w/o mass, Lt breast nml w/o mass, Nipples normal Abdomen: Normal bowel sounds, Soft, No tenderness, No hepatosplenomegaly, No masses Rectal Exam: not examined PELVIC: Nml ext genitalia Extremities: No clubbing, No cyanosis, No edema, Normal pulses, No tenderness/ swelling Skin: No rashes, No breakdown, No significant lesion Neuro: Normal gait, Normal speech, Strength at 5/5 X4 ext, Normal tone, Sensation intact, Cranial nerves 3-12 NL, Reflexes 2+ Psych/Mental Status: Mental status NL, Mood NL Vitals Vitals Vital Signs Date Time Temp Pulse Resp B/P (MAP) Pulse Ox O2 Delivery O2 Flow Rate FiO2 06/13/18 17:45 96 Nasal Cannula 2.0 06/13/18 17:00 98.2 96 20 132/79 (96) 98.2 Labs Labs Laboratory Tests Test 06/13/18 17:10 06/13/18 17:23 White Blood Count 6.6 x10^3/uL (4.0-11.0) Red Blood Count 4.28 x10^6/uL (3.50-5.40) Hemoglobin 11.9 g/dL (12.0-15.5) Hematocrit 36.9 % (36.0-47.0) Mean Corpuscular Volume 86 fL (79-100) Mean Corpuscular Hemoglobin 28 pg (25-35) Mean Corpuscular Hemoglobin Concent 32 g/dL (31-37) Red Cell Distribution Width 15.8 % (11.5-14.5) Platelet Count 498 x10^3/uL (140-400) Neutrophils (%) (Auto) 64 % (31-73) Lymphocytes (%) (Auto) 17 % (24-48) Monocytes (%) (Auto) 13 % (0-9) Eosinophils (%) (Auto) 4 % (0-3) Basophils (%) (Auto) 1 % (0-3) Neutrophils # (Auto) 4.3 x10^3uL (1.8-7.7) Lymphocytes # (Auto) 1.2 x10^3/uL (1.0-4.8) Monocytes # (Auto) 0.9 x10^3/uL (0.0-1.1) Eosinophils # (Auto) 0.3 x10^3/uL (0.0-0.7) Basophils # (Auto) 0.1 x10^3/uL (0.0-0.2) Sodium Level 140 mmol/L (136-145) Potassium Level 4.0 mmol/L (3.5-5.1) Chloride Level 97 mmol/L (98-107) Carbon Dioxide Level 36 mmol/L (21-32) Anion Gap 7 (6-14) Blood Urea Nitrogen 10 mg/dL (7-20) Creatinine 0.7 mg/dL (0.6-1.0) Estimated GFR (Cockcroft-Gault) 85.1 BUN/Creatinine Ratio 14 (6-20) Glucose Level 98 mg/dL (70-99) Lactic Acid Level 0.8 mmol/L (0.4-2.0) Calcium Level 9.1 mg/dL (8.5-10.1) Total Bilirubin 0.3 mg/dL (0.2-1.0) Aspartate Amino Transf (AST/SGOT) 15 U/L (15-37) Alanine Aminotransferase (ALT/SGPT) 16 U/L (14-59) Alkaline Phosphatase 108 U/L (46-116) Troponin I Quantitative < 0.017 ng/mL (0.000-0.055) QK-Mhl-W-Type Natriuretic Peptide 968 pg/mL (0-124) Total Protein 7.3 g/dL (6.4-8.2) Albumin 3.6 g/dL (3.4-5.0) Albumin/Globulin Ratio 1.0 (1.0-1.7) Influenza Type A Antigen Negative (NEGATIVE) Influenza Type B Antigen Negative (NEGATIVE) Laboratory Tests Test 06/13/18 17:10 06/13/18 17:23 White Blood Count 6.6 x10^3/uL (4.0-11.0) Red Blood Count 4.28 x10^6/uL (3.50-5.40) Hemoglobin 11.9 g/dL (12.0-15.5) Hematocrit 36.9 % (36.0-47.0) Mean Corpuscular Volume 86 fL (79-100) Mean Corpuscular Hemoglobin 28 pg (25-35) Mean Corpuscular Hemoglobin Concent 32 g/dL (31-37) Red Cell Distribution Width 15.8 % (11.5-14.5) Platelet Count 498 x10^3/uL (140-400) Neutrophils (%) (Auto) 64 % (31-73) Lymphocytes (%) (Auto) 17 % (24-48) Monocytes (%) (Auto) 13 % (0-9) Eosinophils (%) (Auto) 4 % (0-3) Basophils (%) (Auto) 1 % (0-3) Neutrophils # (Auto) 4.3 x10^3uL (1.8-7.7) Lymphocytes # (Auto) 1.2 x10^3/uL (1.0-4.8) Monocytes # (Auto) 0.9 x10^3/uL (0.0-1.1) Eosinophils # (Auto) 0.3 x10^3/uL (0.0-0.7) Basophils # (Auto) 0.1 x10^3/uL (0.0-0.2) Sodium Level 140 mmol/L (136-145) Potassium Level 4.0 mmol/L (3.5-5.1) Chloride Level 97 mmol/L (98-107) Carbon Dioxide Level 36 mmol/L (21-32) Anion Gap 7 (6-14) Blood Urea Nitrogen 10 mg/dL (7-20) Creatinine 0.7 mg/dL (0.6-1.0) Estimated GFR (Cockcroft-Gault) 85.1 BUN/Creatinine Ratio 14 (6-20) Glucose Level 98 mg/dL (70-99) Lactic Acid Level 0.8 mmol/L (0.4-2.0) Calcium Level 9.1 mg/dL (8.5-10.1) Total Bilirubin 0.3 mg/dL (0.2-1.0) Aspartate Amino Transf (AST/SGOT) 15 U/L (15-37) Alanine Aminotransferase (ALT/SGPT) 16 U/L (14-59) Alkaline Phosphatase 108 U/L (46-116) Troponin I Quantitative < 0.017 ng/mL (0.000-0.055) UK-Esj-T-Type Natriuretic Peptide 968 pg/mL (0-124) Total Protein 7.3 g/dL (6.4-8.2) Albumin 3.6 g/dL (3.4-5.0) Albumin/Globulin Ratio 1.0 (1.0-1.7) Influenza Type A Antigen Negative (NEGATIVE) Influenza Type B Antigen Negative (NEGATIVE) VTE Prophylaxis Ordered VTE Prophylaxis Devices: Yes VTE Pharmacological Prophylaxi: Yes Assessment/Plan Assessment/Plan COPD exacerbation, acute bronchitis dis-no pneumonia Mild pulmonary congestion Severe kyphoscoliosis Nonsmoker, CAD, hypertension-chronic stable Plan: admit 2 MN< touch of Lasix, DuoNeb's, pulmo consulted, cough medicine, supportive meds, I have reconciled home meds Watch E lites, I did put her on mild IV Lasix 20 daily Possibly home after 2 days Seen at GARRY CHOU MD Jun 13, 2018 19:04
[2018-06-13] MEDS ORDERED: FUROSEMIDE 20 MG/2 ML VIAL. IVP ONE (19:15)
[2018-06-13] MEDS ORDERED: IPRATRPIUM/ALBUTEROL 0.5/2.5MG 3 ML NEBU. NEB SCH (20:00)
[2018-06-13] MEDS: IPRATRPIUM/ALBUTEROL 0.5/2.5MG 3 ML NEBU. NEB SCH (21:40)
[2018-06-13] MEDS: MONTELUKAST SODIUM 10 MG TABLET. PO SCH (21:44)
[2018-06-13] MEDS: tiZANidine 4 MG TABLET. PO SCH (21:44)
[2018-06-13] MEDS: SIMVASTATIN 10 MG TABLET PO SCH (21:44)
[2018-06-13] MEDS: BENZONATATE 100 MG CAPSULE. PO SCH (21:44)
[2018-06-13] MEDS: methylPREDNISolone SOD SUCC PF 40 MG/ML VIAL. IV SCH (21:45)
[2018-06-13] MEDS: OXYBUTYNIN CHLORIDE 5 MG TABLET PO SCH (21:45)
[2018-06-13 23:00] VITALS: BP 122/81
--- NOTE | 2018-06-14 01:30 | NUR ---
Called to see patient for c/o chest pain. Patient is very vague about where the pain is and when asked if she has had it before she said she has had it twice before in the hospital and was given Morphine for it. Says when she has it at home she takes "a shot of Nyquil" and it goes away. EKG was done and patient stated the pain was better. Serial Trops were done earlier in the day and all 3 were negative. Addendum: 06/14/18 at 0643 by VENTURA ALTMAN RN Amended: Links added.
--- NOTE | 2018-06-14 02:15 | NUR ---
At 0045 Rapid team activated due to patient's complain of Chest pain. Rated pain at 10/10, said never had such pain with a lot of pressure on her chest. BP noted at 125/73, O2 sat 94% on 2L, and HR 104. Has been ST since she arrived to the unit. Rapid team arrived shortly, 12 lead EKG completed, nothing acute noted. When asked again if the pain was new, she said she always get this kind of pain and she takes a shot of Nyquil at home and it helps. Patient in no distress. Three Trop levels have been completed, the last one just shortly before she reported CP, and all were negative. Dr Griffith notified, no new orders at this time.
[2018-06-14 03:19] VITALS: BP 124/76
[2018-06-14] MEDS: ACETAMINOPHEN/CODEINE 300/30MG TABLET. PO PRN ×3 (05:18→23:54)
[2018-06-14] MEDS: methylPREDNISolone SOD SUCC PF 40 MG/ML VIAL. IV SCH ×3 (05:22→21:10)
[2018-06-14 07:00] VITALS: BP 129/81
[2018-06-14] MEDS: IPRATRPIUM/ALBUTEROL 0.5/2.5MG 3 ML NEBU. NEB SCH ×4 (07:28→20:07)
--- NOTE | 2018-06-14 08:14 | EKG ---
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
[2018-06-14] MEDS: PANTOPRAZOLE 40 MG TABLET.DR. PO SCH (08:54)
[2018-06-14] MEDS: LOSARTAN POTASSIUM 50 MG TABLET. PO SCH (08:54)
[2018-06-14] MEDS: OXYBUTYNIN CHLORIDE 5 MG TABLET PO SCH ×2 (08:55→21:10)
[2018-06-14] MEDS: GLIMEPIRIDE 2 MG TABLET. PO SCH (08:55)
[2018-06-14] MEDS: tiZANidine 4 MG TABLET. PO SCH ×2 (08:55→21:10)
[2018-06-14] MEDS: FUROSEMIDE 20 MG/2 ML VIAL. IVP SCH (08:56)
[2018-06-14] MEDS: BENZONATATE 100 MG CAPSULE. PO SCH ×3 (08:56→21:10)
[2018-06-14 11:00] VITALS: BP 111/60
--- NOTE | 2018-06-14 12:47 | CONS ---
DATE OF CONSULTATION: ATTENDING PHYSICIAN: Dr. Dubon. REASON FOR CONSULTATION: Dyspnea. HISTORY OF PRESENT ILLNESS: The patient is a 62-year-old female with history of COPD and severe kyphoscoliosis. The patient came to the hospital with increased shortness of breath. She has a nonproductive cough, no fever, no chills, no chest pain, no headache. No nausea, vomiting, diarrhea. No leg edema. Her chest x-ray showed mild vascular congestion. There was severe kyphoscoliosis. She had an echo done last year, which showed LVH and likely suggesting diastolic dysfunction. PAST MEDICAL HISTORY: Significant for CAD, CHF, hypertension, hyperlipidemia, COPD. PAST SURGICAL HISTORY: Total hip replacement. FAMILY HISTORY: Cancer, heart disease and hypertension. SOCIAL HISTORY: Quit tobacco, smoked for about 40+ years. ALLERGIES: ASPIRIN. CURRENT MEDICATIONS: Reviewed as listed in the MRAD including IV steroids, bronchodilators. She received Lasix. REVIEW OF SYSTEMS: Twelve-point system obtained. Pertinent positives discussed in my history of present illness, otherwise noncontributory. All systems that were negative were reviewed as well. PHYSICAL EXAMINATION: GENERAL: She is comfortable. VITAL SIGNS: Blood pressure stable, pulse ox 94% on 2 liters. NECK: Supple. LUNGS: Clear. No wheezing. CARDIOVASCULAR: Regular rate and rhythm. ABDOMEN: Soft, nontender. EXTREMITIES: With no pitting edema. LABORATORY DATA: Reviewed. White cell count 6.6 and normal. Her hemoglobin is stable. BUN 10, creatinine 0.7. ProBNP 968. IMPRESSION: 1. Acute hypoxic respiratory failure secondary to combination of mild congestive heart failure and chronic obstructive pulmonary disease exacerbation. 2. No definite pneumonia. 3. Severe kyphoscoliosis. 4. Abnormal chest x-ray revealing mild congestive heart failure. RECOMMENDATIONS: 1. Clinically improved with Lasix. 2. Continue present bronchodilators. 3. Continue steroids with taper. 4. Continue diuresis. 5. Anticipate hospitalization for another 24 hours. GRACE BARCENAS MD DR: ANTONIO/jose JOB#: [id number] / [id number] cheri DUBON DR
--- NOTE | 2018-06-14 14:30 | NUR ---
SW following pt for anticipated dc needs. Chart reviewed. Pt lives at home with spouse. No discharge recommendations or SW needs noted at this time. Will continue to evaluate needs.
[2018-06-14 15:00] VITALS: BP 113/99
[2018-06-14 19:49] VITALS: BP 97/50
[2018-06-14] MEDS: MONTELUKAST SODIUM 10 MG TABLET. PO SCH (21:10)
[2018-06-14] MEDS: SIMVASTATIN 10 MG TABLET PO SCH (21:10)
--- NOTE | 2018-06-14 22:06 | PDOC ---
PROGRESS NOTES Chief Complaint Chief Complaint COPD exacerbation, acute bronchitis dis-no pneumonia Mild pulmonary congestion Severe kyphoscoliosis Nonsmoker, CAD, hypertension-chronic stable Plan: continue Lasix, DuoNeb's, pulmo consulted, cough medicine, supportive meds, continue home meds Possibly home in the next 24 to 48hours History of Present Illness History of Present Illness No new complaints, still very short of breath but somewhat improved comapred to admission no acute events reported overnight. Vitals Vitals Vital Signs Date Time Temp Pulse Resp B/P (MAP) Pulse Ox O2 Delivery O2 Flow Rate FiO2 06/14/18 20:08 95 Nasal Cannula 2.0 06/14/18 19:49 98.1 113 20 97/50 (66) 98.1 Physical Exam General: No acute distress Lungs: Clear, Other Abdomen: Normal bowel sounds, Soft, No tenderness, No hepatosplenomegaly, No masses Extremities: No clubbing, No cyanosis, No edema, Normal pulses, No tenderness/ swelling Skin: No rashes, No breakdown, No significant lesion Labs LABS Laboratory Tests Test 06/13/18 23:30 06/14/18 07:07 06/14/18 11:48 06/14/18 16:55 Troponin I Quantitative < 0.017 ng/mL (0.000-0.055) Glucose (Fingerstick) 127 mg/dL (70-99) 172 mg/dL (70-99) 104 mg/dL (70-99) Test 06/14/18 20:05 Glucose (Fingerstick) 166 mg/dL (70-99) Comment Review of Relevant I have reviewed the following items jose angel (where applicable) has been applied. Labs Laboratory Tests Test 06/13/18 17:10 06/13/18 17:23 06/13/18 20:23 06/13/18 20:54 White Blood Count 6.6 x10^3/uL (4.0-11.0) Red Blood Count 4.28 x10^6/uL (3.50-5.40) Hemoglobin 11.9 g/dL (12.0-15.5) Hematocrit 36.9 % (36.0-47.0) Mean Corpuscular Volume 86 fL (79-100) Mean Corpuscular Hemoglobin 28 pg (25-35) Mean Corpuscular Hemoglobin Concent 32 g/dL (31-37) Red Cell Distribution Width 15.8 % (11.5-14.5) Platelet Count 498 x10^3/uL (140-400) Neutrophils (%) (Auto) 64 % (31-73) Lymphocytes (%) (Auto) 17 % (24-48) Monocytes (%) (Auto) 13 % (0-9) Eosinophils (%) (Auto) 4 % (0-3) Basophils (%) (Auto) 1 % (0-3) Neutrophils # (Auto) 4.3 x10^3uL (1.8-7.7) Lymphocytes # (Auto) 1.2 x10^3/uL (1.0-4.8) Monocytes # (Auto) 0.9 x10^3/uL (0.0-1.1) Eosinophils # (Auto) 0.3 x10^3/uL (0.0-0.7) Basophils # (Auto) 0.1 x10^3/uL (0.0-0.2) Sodium Level 140 mmol/L (136-145) Potassium Level 4.0 mmol/L (3.5-5.1) Chloride Level 97 mmol/L (98-107) Carbon Dioxide Level 36 mmol/L (21-32) Anion Gap 7 (6-14) Blood Urea Nitrogen 10 mg/dL (7-20) Creatinine 0.7 mg/dL (0.6-1.0) Estimated GFR (Cockcroft-Gault) 85.1 BUN/Creatinine Ratio 14 (6-20) Glucose Level 98 mg/dL (70-99) Lactic Acid Level 0.8 mmol/L (0.4-2.0) Calcium Level 9.1 mg/dL (8.5-10.1) Total Bilirubin 0.3 mg/dL (0.2-1.0) Aspartate Amino Transf (AST/SGOT) 15 U/L (15-37) Alanine Aminotransferase (ALT/SGPT) 16 U/L (14-59) Alkaline Phosphatase 108 U/L (46-116) Troponin I Quantitative < 0.017 ng/mL (0.000-0.055) < 0.017 ng/mL (0.000-0.055) YY-Uww-T-Type Natriuretic Peptide 968 pg/mL (0-124) Total Protein 7.3 g/dL (6.4-8.2) Albumin 3.6 g/dL (3.4-5.0) Albumin/Globulin Ratio 1.0 (1.0-1.7) Influenza Type A Antigen Negative (NEGATIVE) Influenza Type B Antigen Negative (NEGATIVE) Glucose (Fingerstick) 98 mg/dL (70-99) Test 06/13/18 23:30 06/14/18 07:07 06/14/18 11:48 06/14/18 16:55 Troponin I Quantitative < 0.017 ng/mL (0.000-0.055) Glucose (Fingerstick) 127 mg/dL (70-99) 172 mg/dL (70-99) 104 mg/dL (70-99) Test 06/14/18 20:05 Glucose (Fingerstick) 166 mg/dL (70-99) Laboratory Tests Test 06/13/18 23:30 06/14/18 07:07 06/14/18 11:48 06/14/18 16:55 Troponin I Quantitative < 0.017 ng/mL (0.000-0.055) Glucose (Fingerstick) 127 mg/dL (70-99) 172 mg/dL (70-99) 104 mg/dL (70-99) Test 06/14/18 20:05 Glucose (Fingerstick) 166 mg/dL (70-99) Microbiology 06/13/18 Blood Culture - Preliminary, Resulted NO GROWTH AFTER 1 DAY Medications Current Medications Albuterol/ Ipratropium (Duoneb) 6 ml 1X ONCE NEB Last administered on at 17:41; Start 06/13/18 at 17:15; Stop 06/13/18 at 17:16; Status DC Methylprednisolone Sodium Succinate (SOLU-Medrol 125MG VIAL) 125 mg 1X ONCE IV Last administered on 06/13/18at 19:26; Start 06/13/18 at 17:15; Stop 06/13/18 at 17:16; Status DC Ondansetron HCl (Zofran) 4 mg PRN Q8HRS PRN IV NAUSEA/VOMITING; Start 06/13/18 at 18:00; Stop 06/13/18 at 18:22; Status DC Albuterol/ Ipratropium (Duoneb) 3 ml RTQID NEB ; Start 06/13/18 at 20:00; Stop 06/13/18 at 20:00; Status DC Methylprednisolone Sodium Succinate (SOLU-Medrol 40MG VIAL) 40 mg Q8HRS IV Last administered on 06/14/18at 21:10; Start 06/13/18 at 22:00; Stop 06/14/18 at 22:00; Status DC Ondansetron HCl (Zofran) 4 mg PRN Q6HRS PRN IV NAUSEA/VOMITING; Start 06/13/18 at 18:30 Guaifenesin (Robitussin Dm) 10 ml PRN Q6HRS PRN PO COUGH; Start 06/13/18 at 18: 30 Acetaminophen (Tylenol) 500 mg PRN Q6HRS PRN PO MILD PAIN / TEMP; Start at 18:30 Acetaminophen/ Codeine Phosphate (Tylenol #3) 1 tab PRN Q6HRS PRN PO MODERATE PAIN Last administered on 06/14/18at 14:26; Start 06/13/18 at 18:30 Benzonatate (Tessalon Perle) 100 mg [id number] PO Last administered on 06/14/18at 21 :10; Start 06/13/18 at 21:00 Diphenhydramine HCl (Benadryl) 25 mg PRN QHS PRN PO INSOMNIA; Start 06/13/18 at 18:30 Clonidine HCl (Catapres) 0.1 mg PRN Q1HR PRN PO HYPERTENSION, SEE COMMENTS; Start 06/13/18 at 18:30 Albuterol Sulfate (Ventolin Neb Soln) 2.5 mg PRN Q4HRS PRN NEB soa; Start 06/13 at 18:30 Losartan Potassium (Cozaar) 50 mg DAILY PO Last administered on 06/14/18at 08:54 ; Start 06/14/18 at 09:00 Metoclopramide HCl (Reglan) 5 mg PRN BFRMEALHC PRN PO NAUSEA/VOMITING 2ND CHOICE PO; Start 06/13/18 at 18:30 Simvastatin (Zocor) 10 mg HS PO Last administered on 06/14/18at 21:10; Start 02/21 at 21:00 Ergocalciferol (Vitamin D2) 50,000 unit WEEKLY PO ; Start 06/20/18 at 09:00 Diltiazem HCl (Cardizem 24hr Cd) 120 mg DAILY PO Last administered on 08:53; Start 06/14/18 at 09:00 Glimepiride (Amaryl) 1 mg DAILY PO Last administered on 06/14/18 08:55; Start 06/14/18 at 09:00 Montelukast Sodium (Singulair) 10 mg QHS PO Last administered on 06/14/18 21: 10; Start 06/13/18 at 21:00 Ondansetron HCl (Zofran Odt) 4 mg PRN Q8HRS PRN PO NAUSEA/VOMITING, 1ST CHOICE PO; Start 06/13/18 at 18:45 Oxybutynin Chloride (Ditropan) 2.5 mg BID PO Last administered on 06/14/18 21: 10; Start 06/13/18 at 21:00 Pantoprazole Sodium (Protonix) 40 mg DAILYAC PO Last administered on 06/14/18 08:54; Start 06/14/18 at 07:30 Albuterol/ Ipratropium (Duoneb) 3 ml RTQID NEB Last administered on 06/14/18 20:07; Start 06/13/18 at 20:00 Tizanidine HCl (Zanaflex) 4 mg BID PO Last administered on 06/14/18 21:10; Start 06/13/18 at 21:00 Furosemide (Lasix) 20 mg 1X ONCE IVP Last administered on 06/13/18 21:44; Start 06/13/18 at 19:15; Stop 06/13/18 at 19:16; Status DC Furosemide (Lasix) 20 mg DAILY IVP Last administered on 06/14/18 08:56; Start 06/14/18 at 09:00 Active Scripts Active Augmentin 500-125 Tablet (Amoxicillin/Potassium Clav) 1 Each Tablet 1 Tab PO BID Metoclopramide Hcl 5 Mg Tablet 5 Mg PO PRN BFRMEALHC PRN Protonix (Pantoprazole Sodium) 40 Mg Granpkt.dr 40 Mg PO DAILY 30 Days Zofran (Ondansetron Hcl) 4 Mg Tablet 1 Tab PO Q8HRS PRN Reported Benzonatate 100 Mg Capsule 1 Cap PO TID Albuterol Sulfate Neb Soln (Albuterol Sulfate) 2.5 Mg/3 Ml Vial.neb 1 Vial NEB BID Tizanidine Hcl 4 Mg Tablet 1 Tab PO BID Albuterol Sulfate Neb Soln (Albuterol Sulfate) 2.5 Mg/3 Ml Vial.neb 1 Vial NEB PRN Q4HRS Mucinex (Guaifenesin) 600 Mg Tablet.er 1 Tab PO BID Glimepiride 1 Mg Tablet 1 Mg PO DAILY Symbicort 160-4.5 Mcg Inhaler (Budesonide/Formoterol Fumarate) 10.2 Gm Hfa.aer.ad 1 Puff IH BID Vitamin D (Cholecalciferol (Vitamin D3)) 50,000 Unit Capsule 50,000 Unit PO WEEKLY Ditropan Xl (Oxybutynin Chloride) 5 Mg Tab.er.24 5 Mg PO DAILY Losartan Potassium 50 Mg Tablet 50 Mg PO DAILY Simvastatin 10 Mg Tablet 10 Mg PO HS Proair Hfa Inhaler (Albuterol Sulfate) 8.5 Gm Hfa.aer.ad 17 Gm IH Q4HRS W/A PRN Spiriva (Tiotropium Macy) 18 Mcg Cap.w.dev 18 Mcg IH DAILY Singulair Tablet (Montelukast Sodium) 10 Mg Tablet 10 Mg PO HS Diltiazem 24HR Cd (Diltiazem Hcl) 120 Mg Cap.er.24h 120 Mg PO DAILY Vitals/I & O Vital Sign - Last 24 Hours 06/13/18 06/14/18 06/14/18 06/14/18 23:00 03:19 07:00 07:29 Temp 98.3 98.5 97.5 98.3 98.5 97.5 Pulse 107 109 106 Resp 18 18 18 B/P (MAP) 122/81 (95) 124/76 (92) 129/81 (97) Pulse Ox 95 94 96 94 O2 Delivery Nasal Cannula Nasal Cannula Nasal Cannula Nasal Cannula O2 Flow Rate 2.0 2.0 2.0 2.0 06/14/18 06/14/18 06/14/18 06/14/18 08:00 08:53 08:54 11:00 Temp 97.7 97.7 Pulse 106 106 111 Resp 18 B/P (MAP) 129/81 129/81 111/60 (77) Pulse Ox 95 O2 Delivery Nasal Cannula Nasal Cannula O2 Flow Rate 2.0 2.0 06/14/18 06/14/18 06/14/1819 11:17 14:26 15:00 15:24 Temp 97.5 97.5 Pulse 108 Resp 18 B/P (MAP) 113/99 (104) Pulse Ox 94 96 O2 Delivery Nasal Cannula Room Air Nasal Cannula Room Air O2 Flow Rate 2.0 2.0 06/14/18 06/14/18 06/14/18 06/14/18 15:43 19:46 19:49 20:08 Temp 98.1 98.1 Pulse 113 Resp 20 B/P (MAP) 97/50 (66) Pulse Ox 97 95 O2 Delivery Nasal Cannula Nasal Cannula Nasal Cannula Nasal Cannula O2 Flow Rate 2.0 2.0 2.0 2.0 Intake and Output 06/13/18 06/13/18 06/14/18 15:00 23:00 07:00 Intake Total 2000 ml Output Total 250 ml Balance 1750 ml DAVID TEMPLETON MD Jun 14, 2018 22:06
[2018-06-14 23:19] VITALS: BP 95/55
[2018-06-15 03:14] VITALS: BP 112/75
[2018-06-15] MEDS: PANTOPRAZOLE 40 MG TABLET.DR. PO SCH (06:09)
[2018-06-15 07:00] VITALS: BP 116/74
[2018-06-15] MEDS: IPRATRPIUM/ALBUTEROL 0.5/2.5MG 3 ML NEBU. NEB SCH ×4 (07:57→19:41)
[2018-06-15] MEDS: BENZONATATE 100 MG CAPSULE. PO SCH ×3 (10:30→20:47)
[2018-06-15] MEDS: GLIMEPIRIDE 2 MG TABLET. PO SCH (10:31)
[2018-06-15] MEDS: tiZANidine 4 MG TABLET. PO SCH ×2 (10:32→20:46)
[2018-06-15] MEDS: OXYBUTYNIN CHLORIDE 5 MG TABLET PO SCH ×2 (10:32→20:46)
[2018-06-15] MEDS: LOSARTAN POTASSIUM 50 MG TABLET. PO SCH (10:32)
[2018-06-15] MEDS: FUROSEMIDE 20 MG/2 ML VIAL. IVP SCH (10:33)
[2018-06-15 11:00] VITALS: BP 122/55
--- NOTE | 2018-06-15 12:14 | PDOC ---
PULMONARY PROGRESS NOTES Subjective no soa/ feels better Vitals Vital Signs Date Time Temp Pulse Resp B/P (MAP) Pulse Ox O2 Delivery O2 Flow Rate FiO2 06/15/18 12:12 Nasal Cannula 2.0 06/15/18 11:00 98.0 104 18 122/55 (77) 93 98.0 General: Alert, No acute distress Lungs: Clear Cardiovascular: S1, S2 Abdomen: Soft Neuro Exam: Alert Extremities: No Edema Labs Laboratory Tests Test 06/13/18 17:10 06/13/18 17:23 06/13/18 20:23 06/13/18 20:54 White Blood Count 6.6 x10^3/uL (4.0-11.0) Red Blood Count 4.28 x10^6/uL (3.50-5.40) Hemoglobin 11.9 g/dL (12.0-15.5) Hematocrit 36.9 % (36.0-47.0) Mean Corpuscular Volume 86 fL (79-100) Mean Corpuscular Hemoglobin 28 pg (25-35) Mean Corpuscular Hemoglobin Concent 32 g/dL (31-37) Red Cell Distribution Width 15.8 % (11.5-14.5) Platelet Count 498 x10^3/uL (140-400) Neutrophils (%) (Auto) 64 % (31-73) Lymphocytes (%) (Auto) 17 % (24-48) Monocytes (%) (Auto) 13 % (0-9) Eosinophils (%) (Auto) 4 % (0-3) Basophils (%) (Auto) 1 % (0-3) Neutrophils # (Auto) 4.3 x10^3uL (1.8-7.7) Lymphocytes # (Auto) 1.2 x10^3/uL (1.0-4.8) Monocytes # (Auto) 0.9 x10^3/uL (0.0-1.1) Eosinophils # (Auto) 0.3 x10^3/uL (0.0-0.7) Basophils # (Auto) 0.1 x10^3/uL (0.0-0.2) Sodium Level 140 mmol/L (136-145) Potassium Level 4.0 mmol/L (3.5-5.1) Chloride Level 97 mmol/L (98-107) Carbon Dioxide Level 36 mmol/L (21-32) Anion Gap 7 (6-14) Blood Urea Nitrogen 10 mg/dL (7-20) Creatinine 0.7 mg/dL (0.6-1.0) Estimated GFR (Cockcroft-Gault) 85.1 BUN/Creatinine Ratio 14 (6-20) Glucose Level 98 mg/dL (70-99) Lactic Acid Level 0.8 mmol/L (0.4-2.0) Calcium Level 9.1 mg/dL (8.5-10.1) Total Bilirubin 0.3 mg/dL (0.2-1.0) Aspartate Amino Transf (AST/SGOT) 15 U/L (15-37) Alanine Aminotransferase (ALT/SGPT) 16 U/L (14-59) Alkaline Phosphatase 108 U/L (46-116) Troponin I Quantitative < 0.017 ng/mL (0.000-0.055) < 0.017 ng/mL (0.000-0.055) KF-Kuq-X-Type Natriuretic Peptide 968 pg/mL (0-124) Total Protein 7.3 g/dL (6.4-8.2) Albumin 3.6 g/dL (3.4-5.0) Albumin/Globulin Ratio 1.0 (1.0-1.7) Influenza Type A Antigen Negative (NEGATIVE) Influenza Type B Antigen Negative (NEGATIVE) Glucose (Fingerstick) 98 mg/dL (70-99) Test 06/13/18 23:30 06/14/18 07:07 06/14/18 11:48 06/14/18 16:55 Troponin I Quantitative < 0.017 ng/mL (0.000-0.055) Glucose (Fingerstick) 127 mg/dL (70-99) 172 mg/dL (70-99) 104 mg/dL (70-99) Test 06/14/18 20:05 Glucose (Fingerstick) 166 mg/dL (70-99) Laboratory Tests Test 06/14/18 16:55 06/14/18 20:05 Glucose (Fingerstick) 104 mg/dL (70-99) 166 mg/dL (70-99) Medications Active Scripts Medications Dose Route/Sig Max Daily Dose Days Date Category Augmentin 500-125 Tablet (Amoxicillin/Potassium Clav) 1 Each Tablet 1 Tab PO BID 03/22/18 Rx Metoclopramide Hcl 5 Mg Tablet 5 Mg PO PRN BFRMEALHC PRN 01/24/18 Rx Protonix (Pantoprazole Sodium) 40 Mg Granpkt.dr 40 Mg PO DAILY 30 01/24/18 Rx Benzonatate 100 Mg Capsule 1 Cap PO TID 10/23/17 Reported Albuterol Sulfate Neb Soln (Albuterol Sulfate) 2.5 Mg/3 Ml Vial.neb 1 Vial NEB BID 08/11/17 Reported Tizanidine Hcl 4 Mg Tablet 1 Tab PO BID 08/11/17 Reported Albuterol Sulfate Neb Soln (Albuterol Sulfate) 2.5 Mg/3 Ml Vial.neb 1 Vial NEB PRN Q4HRS 03/24/17 Reported Mucinex (Guaifenesin) 600 Mg Tablet.er 1 Tab PO BID 08/16/16 Reported Glimepiride 1 Mg Tablet 1 Mg PO DAILY 08/16/16 Reported Symbicort 160-4.5 Mcg Inhaler (Budesonide/Formoterol Fumarate) 10.2 Gm Hfa.aer.ad 1 Puff IH BID 08/16/16 Reported Vitamin D (Cholecalciferol (Vitamin D3)) 50,000 Unit Capsule 50,000 Unit PO WEEKLY 08/16/16 Reported Ditropan Xl (Oxybutynin Chloride) 5 Mg Tab.er.24 5 Mg PO DAILY 08/16/16 Reported Losartan Potassium 50 Mg Tablet 50 Mg PO DAILY 08/16/16 Reported Simvastatin 10 Mg Tablet 10 Mg PO HS 08/16/16 Reported Zofran (Ondansetron Hcl) 4 Mg Tablet 1 Tab PO Q8HRS PRN 10/26/15 Rx Proair Hfa Inhaler (Albuterol Sulfate) 8.5 Gm Hfa.aer.ad 17 Gm IH Q4HRS W/A PRN 07/23/13 Reported Spiriva (Tiotropium Sherman) 18 Mcg Cap.w.dev 18 Mcg IH DAILY 07/23/13 Reported Singulair Tablet (Montelukast Sodium) 10 Mg Tablet 10 Mg PO HS 07/23/13 Reported Diltiazem 24HR Cd (Diltiazem Hcl) 120 Mg Cap.er.24h 120 Mg PO DAILY 07/23/13 Reported Impression . 1. Acute hypoxic respiratory failure secondary to combination of mild congestive heart failure and chronic obstructive pulmonary disease exacerbation. 2. No definite pneumonia. 3. Severe kyphoscoliosis. 4. Abnormal chest x-ray revealing mild congestive heart failure. Plan . 1. Clinically improved with Lasix. 2. Continue present bronchodilators. 3. Continue steroids with taper. 4. Continue diuresis. 5. Anticipate hospitalization for another 24 hours. GRACE BARCENAS MD Jun 15, 2018 12:14
--- NOTE | 2018-06-15 13:49 | CARD ---
MR#: [id number] Date of Study: 06/15/2018 Ordering Physician: GARRY DUBON, Referring Physician: GARRY DUBON, Tech: Evangelina Vega APPROVED REPORT EXAM: Two-dimensional and M-mode echocardiogram with Doppler and color Doppler. Other Information Quality : FairHR: 107bpm INDICATION LV Function:Systolic Congestive Heart Failure RISK FACTORS Hypertension Hyperlipidemia Diabetes Previous smoker 2D DIMENSIONS Left Atrium(2D)2.8 (1.6-4.0cm)IVSd1.2 (0.7-1.1cm) Aortic Root(2D)2.9 (2.0-3.7cm)LVDd3.5 (3.9-5.9cm) LVOT Diameter2.2 (1.8-2.4cm)PWd1.1 (0.7-1.1cm) IVSs2.2 (0.8-1.2cm) Aortic Valve AoV Peak Mir.149.4cm/sAoV VTI32.5cm AO Peak GR.8.9mmHgLVOT Peak Mir.131.3cm/s LVOT VTI 22.80cmAO Mean GR.5mmHg RUTHIE (VMAX)2.40vy0LUF (VTI)2.63cm2 Mitral Valve MV E Uzyznskj31.6cm/sMV DECEL [id number] MV A Qxbdbcaf071.1cm/sMV JBR14mt E/A Ratio0.6MVA (PHT)3.54cm2 TDI E/Lateral E'6.3E/Medial E'9.1 Pulmonary Valve PV Peak Ixiiojku856.2cm/sPV Peak Grad.9mmHg Tricuspid Valve TR P. Fecxgbbl322em/sRAP [id number] TR Peak Gr.93pnVlCEVD91jlLb Pulmonary Vein S1 Ceeazuwb51.9cm/sD2 Jeaggdnp96.9cm/s PVa sejqadpm148haqi LEFT VENTRICLE The left ventricle is normal size. There is mild concentric left ventricular hypertrophy. The left ve ntricle is hyperdynamic. The ejection fraction is estimated at 75-80%. There is normal LV segmental w all motion. Transmitral Doppler flow pattern is Grade I-abnormal relaxation pattern. RIGHT VENTRICLE The right ventricle is normal size. There is normal right ventricular wall thickness. The right ventr icular systolic function is normal. ATRIA The left atrium size is normal. The right atrium size is normal. The interatrial septum is intact wit h no evidence for an atrial septal defect or patent foramen ovale as noted on 2-D or Doppler imaging. AORTIC VALVE The aortic valve is thickened but opens well. Doppler and Color Flow revealed trace aortic regurgitat ion. There is no significant aortic valvular stenosis. MITRAL VALVE The mitral valve is normal in structure and function. There is no evidence of mitral valve prolapse. There is no mitral valve stenosis. Doppler and Color-flow revealed trace mitral regurgitation. TRICUSPID VALVE The tricuspid valve is normal in structure and function. Doppler and Color Flow revealed mild tricusp id regurgitation with an estimated PAP of 44 mmHg. There is no tricuspid valve stenosis. PULMONIC VALVE The pulmonic valve is not well visualized. Doppler and Color Flow revealed no pulmonic valvular regur gitation. GREAT VESSELS The aortic root is normal in size. The IVC is normal in size and collapses >50% with inspiration. PERICARDIAL EFFUSION There is no evidence of significant pericardial effusion. Critical Notification Critical Value: No <Conclusion> The left ventricle is hyperdynamic. The ejection fraction is estimated at 75-80%. There is normal LV segmental wall motion. Transmitral Doppler flow pattern is Grade I-abnormal relaxation pattern. Trace aortic regurgitation. Trace mitral regurgitation. Mild tricuspid regurgitation with an estimated PAP of 44 mmHg. There is no evidence of significant pericardial effusion. Signed by : Oscar Jones, Electronically Approved : 06/15/2018 13:49:06
--- NOTE | 2018-06-15 14:07 | PDOC ---
PROGRESS NOTES Chief Complaint Chief Complaint COPD exacerbation, acute bronchitis dis-no pneumonia Mild pulmonary congestion Severe kyphoscoliosis Nonsmoker, CAD, hypertension-chronic stable Plan: continue Angelica Nunez's, pulmo consulted, cough medicine, supportive meds, continue home meds Possibly home in the next 24 to 48hours History of Present Illness History of Present Illness Pt seen and examined VSS Co soa A little tachycardic this afternoon. Vitals Vitals Vital Signs Date Time Temp Pulse Resp B/P (MAP) Pulse Ox O2 Delivery O2 Flow Rate FiO2 06/15/18 12:12 Nasal Cannula 2.0 06/15/18 11:00 98.0 104 18 122/55 (77) 93 98.0 Physical Exam General: Alert, Oriented X3, Cooperative, No acute distress Heart: Regular rate, Other (Tachy S1S2) Lungs: Crackles Abdomen: Normal bowel sounds, Soft, No tenderness, No hepatosplenomegaly, No masses Extremities: No clubbing, No cyanosis, No edema, Normal pulses, No tenderness/ swelling Skin: No rashes, No breakdown, No significant lesion Labs LABS Laboratory Tests Test 06/14/18 16:55 06/14/18 20:05 Glucose (Fingerstick) 104 mg/dL (70-99) 166 mg/dL (70-99) Review of Systems Review of Systems co soa co anxiety Assessment and Plan Assessmemt and Plan COPD exacerbation, acute bronchitis dis-no pneumonia Mild pulmonary congestion Severe kyphoscoliosis Nonsmoker, CAD, hypertension-chronic stable Plan: Nayely Dominguez Pulmo consulted Antitussives Home meds Comment Review of Relevant I have reviewed the following items jose angel (where applicable) has been applied. Labs Laboratory Tests Test 06/13/18 17:10 06/13/18 17:23 06/13/18 20:23 06/13/18 20:54 White Blood Count 6.6 x10^3/uL (4.0-11.0) Red Blood Count 4.28 x10^6/uL (3.50-5.40) Hemoglobin 11.9 g/dL (12.0-15.5) Hematocrit 36.9 % (36.0-47.0) Mean Corpuscular Volume 86 fL (79-100) Mean Corpuscular Hemoglobin 28 pg (25-35) Mean Corpuscular Hemoglobin Concent 32 g/dL (31-37) Red Cell Distribution Width 15.8 % (11.5-14.5) Platelet Count 498 x10^3/uL (140-400) Neutrophils (%) (Auto) 64 % (31-73) Lymphocytes (%) (Auto) 17 % (24-48) Monocytes (%) (Auto) 13 % (0-9) Eosinophils (%) (Auto) 4 % (0-3) Basophils (%) (Auto) 1 % (0-3) Neutrophils # (Auto) 4.3 x10^3uL (1.8-7.7) Lymphocytes # (Auto) 1.2 x10^3/uL (1.0-4.8) Monocytes # (Auto) 0.9 x10^3/uL (0.0-1.1) Eosinophils # (Auto) 0.3 x10^3/uL (0.0-0.7) Basophils # (Auto) 0.1 x10^3/uL (0.0-0.2) Sodium Level 140 mmol/L (136-145) Potassium Level 4.0 mmol/L (3.5-5.1) Chloride Level 97 mmol/L (98-107) Carbon Dioxide Level 36 mmol/L (21-32) Anion Gap 7 (6-14) Blood Urea Nitrogen 10 mg/dL (7-20) Creatinine 0.7 mg/dL (0.6-1.0) Estimated GFR (Cockcroft-Gault) 85.1 BUN/Creatinine Ratio 14 (6-20) Glucose Level 98 mg/dL (70-99) Lactic Acid Level 0.8 mmol/L (0.4-2.0) Calcium Level 9.1 mg/dL (8.5-10.1) Total Bilirubin 0.3 mg/dL (0.2-1.0) Aspartate Amino Transf (AST/SGOT) 15 U/L (15-37) Alanine Aminotransferase (ALT/SGPT) 16 U/L (14-59) Alkaline Phosphatase 108 U/L (46-116) Troponin I Quantitative < 0.017 ng/mL (0.000-0.055) < 0.017 ng/mL (0.000-0.055) YS-Hdh-O-Type Natriuretic Peptide 968 pg/mL (0-124) Total Protein 7.3 g/dL (6.4-8.2) Albumin 3.6 g/dL (3.4-5.0) Albumin/Globulin Ratio 1.0 (1.0-1.7) Influenza Type A Antigen Negative (NEGATIVE) Influenza Type B Antigen Negative (NEGATIVE) Glucose (Fingerstick) 98 mg/dL (70-99) Test 06/13/18 23:30 06/14/18 07:07 06/14/18 11:48 06/14/18 16:55 Troponin I Quantitative < 0.017 ng/mL (0.000-0.055) Glucose (Fingerstick) 127 mg/dL (70-99) 172 mg/dL (70-99) 104 mg/dL (70-99) Test 06/14/18 20:05 Glucose (Fingerstick) 166 mg/dL (70-99) Laboratory Tests Test 06/14/18 16:55 06/14/18 20:05 Glucose (Fingerstick) 104 mg/dL (70-99) 166 mg/dL (70-99) Microbiology 06/13/18 Blood Culture - Preliminary, Resulted NO GROWTH AFTER 1 DAY Medications Current Medications Albuterol/ Ipratropium (Duoneb) 6 ml 1X ONCE NEB Last administered on at 17:41; Start 06/13/18 at 17:15; Stop 06/13/18 at 17:16; Status DC Methylprednisolone Sodium Succinate (SOLU-Medrol 125MG VIAL) 125 mg 1X ONCE IV Last administered on 06/13/18at 19:26; Start 06/13/18 at 17:15; Stop 06/13/18 at 17:16; Status DC Ondansetron HCl (Zofran) 4 mg PRN Q8HRS PRN IV NAUSEA/VOMITING; Start 06/13/18 at 18:00; Stop 06/13/18 at 18:22; Status DC Albuterol/ Ipratropium (Duoneb) 3 ml RTQID NEB ; Start 06/13/18 at 20:00; Stop 06/13/18 at 20:00; Status DC Methylprednisolone Sodium Succinate (SOLU-Medrol 40MG VIAL) 40 mg Q8HRS IV Last administered on 06/14/18at 21:10; Start 06/13/18 at 22:00; Stop 06/14/18 at 22:00; Status DC Ondansetron HCl (Zofran) 4 mg PRN Q6HRS PRN IV NAUSEA/VOMITING; Start 06/13/18 at 18:30 Guaifenesin (Robitussin Dm) 10 ml PRN Q6HRS PRN PO COUGH; Start 06/13/18 at 18: 30 Acetaminophen (Tylenol) 500 mg PRN Q6HRS PRN PO MILD PAIN / TEMP; Start at 18:30 Acetaminophen/ Codeine Phosphate (Tylenol #3) 1 tab PRN Q6HRS PRN PO MODERATE PAIN Last administered on 06/14/18at 23:54; Start 06/13/18 at 18:30 Benzonatate (Tessalon Perle) 100 mg [id number] PO Last administered on 06/15/18at 10 :30; Start 06/13/18 at 21:00 Diphenhydramine HCl (Benadryl) 25 mg PRN QHS PRN PO INSOMNIA; Start 06/13/18 at 18:30 Clonidine HCl (Catapres) 0.1 mg PRN Q1HR PRN PO HYPERTENSION, SEE COMMENTS; Start 06/13/18 at 18:30 Albuterol Sulfate (Ventolin Neb Soln) 2.5 mg PRN Q4HRS PRN NEB soa; Start 06/13 at 18:30 Losartan Potassium (Cozaar) 50 mg DAILY PO Last administered on 06/15/18at 10:32 ; Start 06/14/18 at 09:00 Metoclopramide HCl (Reglan) 5 mg PRN BFRMEALHC PRN PO NAUSEA/VOMITING 2ND CHOICE PO; Start 06/13/18 at 18:30 Simvastatin (Zocor) 10 mg HS PO Last administered on 06/14/18at 21:10; Start 02/21 at 21:00 Ergocalciferol (Vitamin D2) 50,000 unit WEEKLY PO ; Start 06/20/18 at 09:00 Diltiazem HCl (Cardizem 24hr Cd) 120 mg DAILY PO Last administered on at 10:31; Start 06/14/18 at 09:00 Glimepiride (Amaryl) 1 mg DAILY PO Last administered on 06/15/18 10:31; Start 06/14/18 at 09:00 Montelukast Sodium (Singulair) 10 mg QHS PO Last administered on 06/14/18 21: 10; Start 06/13/18 at 21:00 Ondansetron HCl (Zofran Odt) 4 mg PRN Q8HRS PRN PO NAUSEA/VOMITING, 1ST CHOICE PO; Start 06/13/18 at 18:45 Oxybutynin Chloride (Ditropan) 2.5 mg BID PO Last administered on 06/15/18 10: 32; Start 06/13/18 at 21:00 Pantoprazole Sodium (Protonix) 40 mg DAILYAC PO Last administered on 06/15/18 06:09; Start 06/14/18 at 07:30 Albuterol/ Ipratropium (Duoneb) 3 ml RTQID NEB Last administered on 06/15/18 12:11; Start 06/13/18 at 20:00 Tizanidine HCl (Zanaflex) 4 mg BID PO Last administered on 06/15/18 10:32; Start 06/13/18 at 21:00 Furosemide (Lasix) 20 mg 1X ONCE IVP Last administered on 06/13/18 21:44; Start 06/13/18 at 19:15; Stop 06/13/18 at 19:16; Status DC Furosemide (Lasix) 20 mg DAILY IVP Last administered on 06/15/18 10:33; Start 06/14/18 at 09:00 Active Scripts Active Augmentin 500-125 Tablet (Amoxicillin/Potassium Clav) 1 Each Tablet 1 Tab PO BID Metoclopramide Hcl 5 Mg Tablet 5 Mg PO PRN BFRMEALHC PRN Protonix (Pantoprazole Sodium) 40 Mg Granpkt.dr 40 Mg PO DAILY 30 Days Zofran (Ondansetron Hcl) 4 Mg Tablet 1 Tab PO Q8HRS PRN Reported Benzonatate 100 Mg Capsule 1 Cap PO TID Albuterol Sulfate Neb Soln (Albuterol Sulfate) 2.5 Mg/3 Ml Vial.neb 1 Vial NEB BID Tizanidine Hcl 4 Mg Tablet 1 Tab PO BID Albuterol Sulfate Neb Soln (Albuterol Sulfate) 2.5 Mg/3 Ml Vial.neb 1 Vial NEB PRN Q4HRS Mucinex (Guaifenesin) 600 Mg Tablet.er 1 Tab PO BID Glimepiride 1 Mg Tablet 1 Mg PO DAILY Symbicort 160-4.5 Mcg Inhaler (Budesonide/Formoterol Fumarate) 10.2 Gm Hfa.aer.ad 1 Puff IH BID Vitamin D (Cholecalciferol (Vitamin D3)) 50,000 Unit Capsule 50,000 Unit PO WEEKLY Ditropan Xl (Oxybutynin Chloride) 5 Mg Tab.er.24 5 Mg PO DAILY Losartan Potassium 50 Mg Tablet 50 Mg PO DAILY Simvastatin 10 Mg Tablet 10 Mg PO HS Proair Hfa Inhaler (Albuterol Sulfate) 8.5 Gm Hfa.aer.ad 17 Gm IH Q4HRS W/A PRN Spiriva (Tiotropium [place]) 18 Mcg Cap.w.dev 18 Mcg IH DAILY Singulair Tablet (Montelukast Sodium) 10 Mg Tablet 10 Mg PO HS Diltiazem 24HR Cd (Diltiazem Hcl) 120 Mg Cap.er.24h 120 Mg PO DAILY Vitals/I & O Vital Sign - Last 24 Hours 06/14/18 06/14/18 06/14/18 06/14/18 14:26 15:00 15:43 19:46 Temp 97.5 97.5 Pulse 108 Resp 18 B/P (MAP) 113/99 (104) Pulse Ox 96 O2 Delivery Room Air Nasal Cannula Nasal Cannula Nasal Cannula O2 Flow Rate 2.0 2.0 2.0 06/14/18 06/14/18 06/14/18 06/14/18 19:49 20:08 23:19 23:54 Temp 98.1 98.3 98.1 98.3 Pulse 113 104 Resp 20 16 18 B/P (MAP) 97/50 (66) 95/55 (68) Pulse Ox 97 95 96 96 O2 Delivery Nasal Cannula Nasal Cannula Nasal Cannula Nasal Cannula O2 Flow Rate 2.0 2.0 2.0 2.0 06/15/18 06/15/18 06/15/18 06/15/18 00:54 03:14 07:00 07:59 Temp 98.3 98.0 98.3 98.0 Pulse 102 98 Resp 18 20 18 B/P (MAP) 112/75 (87) 116/74 (88) Pulse Ox 96 97 99 99 O2 Delivery Nasal Cannula Nasal Cannula Nasal Cannula Nasal Cannula O2 Flow Rate 2.0 2.0 2.0 2.0 06/15/18 06/15/18 06/15/18 06/15/18 08:00 10:31 10:32 11:00 Temp 98.0 98.0 Pulse 98 98 104 Resp 18 B/P (MAP) 116/74 116/74 122/55 (77) Pulse Ox 93 O2 Delivery Nasal Cannula Nasal Cannula O2 Flow Rate 2.0 2.0 06/15/18 12:12 O2 Delivery Nasal Cannula O2 Flow Rate 2.0 Intake and Output 06/14/18 06/14/18 06/15/18 15:00 23:00 07:00 Intake Total 590 ml 570 ml 200 ml Balance 590 ml 570 ml 200 ml DAYLIN ANDINO III DO Jun 15, 2018 14:07
[2018-06-15 15:00] VITALS: BP 112/76
[2018-06-15] MEDS: guaiFENesin DM 200MG/20MG 10 ML SYRUP PO PRN ×2 (15:18→21:21)
[2018-06-15 19:30] VITALS: BP 128/68
[2018-06-15] MEDS: SIMVASTATIN 10 MG TABLET PO SCH (20:45)
[2018-06-15] MEDS: MONTELUKAST SODIUM 10 MG TABLET. PO SCH (20:46)
[2018-06-15 23:01] VITALS: BP 103/59
[2018-06-15] MEDS: ACETAMINOPHEN/CODEINE 300/30MG TABLET. PO PRN (23:23)
[2018-06-16 03:07] VITALS: BP 113/69
[2018-06-16] MEDS: IPRATRPIUM/ALBUTEROL 0.5/2.5MG 3 ML NEBU. NEB SCH ×3 (07:06→15:57)
[2018-06-16 07:15] VITALS: BP 118/77
[2018-06-16] MEDS: FUROSEMIDE 20 MG/2 ML VIAL. IVP SCH (08:40)
[2018-06-16] MEDS: LOSARTAN POTASSIUM 50 MG TABLET. PO SCH (08:40)
[2018-06-16] MEDS: BENZONATATE 100 MG CAPSULE. PO SCH ×2 (08:40→14:37)
[2018-06-16] MEDS: PANTOPRAZOLE 40 MG TABLET.DR. PO SCH (08:40)
[2018-06-16] MEDS: tiZANidine 4 MG TABLET. PO SCH (08:41)
[2018-06-16] MEDS: GLIMEPIRIDE 2 MG TABLET. PO SCH (08:41)
[2018-06-16] MEDS: OXYBUTYNIN CHLORIDE 5 MG TABLET PO SCH (08:42)
[2018-06-16 11:07] VITALS: BP 101/58
[2018-06-16] MEDS ORDERED: AMOX1TAB58 PO (12:05)
--- NOTE | 2018-06-16 12:07 | SNU/HH DC ---
DISCHARGE WITH HOME HEALTH DISCHARGE INFORMATION: Discharge Date: Jun 16, 2018 Condition on Discharge: Stable CODE STATUS: Code Status: Full HOME HEALTH: Face to Face: I certify this patient is under my care and that I, or a nurse practitioner or physician's orthodontic assistant working with me, had a face to face encounter that meets the physician face to face encounter requirements with this patient on 06/16/ Medical Complications: CHF (secondary to COPD), COPD Physical Therapy For: Evalulation/Treatment POST DISCHARGE ORDERS: Activity Instructions for Disc: No restrictions Weight Bearing Status after Di: As tolerated DIET AFTER DISCHARGE: Regular CHECKS AFTER DISCHARGE: Checks after discharge: Check blood press - daily, Check blood sugar, ac/hs Comment: hold AMaryl for hypoglycemia here, f/u PCP FOLLOW-UP: Follow up with: Dr. Lugo TREATMENT/EQUIPMENT ORDERS: Adaptive Equipment Issued: None CERTIFICATION STATEMENT: Certification Statement: Certification Statement: Based on the above finding, I certify that this patient is confined to the home and needs intermittent senior living care, physical therapy and/or speech therapy, or continues to need occupational therapy.~ This patient is under my care, and I have initiated the establishment of the plan of care.~ This patient will be followed by myself or a community physician who will periodically review the plan of care. Home Meds Active Scripts Amoxicillin/Potassium Clav (AUGMENTIN 500-125 TABLET) 1 Each Tablet, 1 TAB PO BID for pneumonia, #14 TAB Prov:WHIT RODRIGUEZ MD 06/16/18 Metoclopramide Hcl (METOCLOPRAMIDE HCL) 5 Mg Tablet, 5 MG PO PRN BFRMEALHC PRN for NAUSEA/VOMITING, #60 TAB Prov:GARRY DUBON MD 01/24/18 Pantoprazole Sodium (PROTONIX) 40 Mg , 40 MG PO DAILY for GERD for 30 Days, #30 PKT Prov:GARRY DUBON MD 01/24/18 Ondansetron Hcl (ZOFRAN) 4 Mg Tablet, 1 TAB PO Q8HRS PRN for NAUSEA, #20 TAB Prov:RANDALL KNIGHT DO 10/26/15 Reported Medications Benzonatate (BENZONATATE) 100 Mg Capsule, 1 CAP PO TID for cough 10/23/17 Albuterol Sulfate (ALBUTEROL SULFATE NEB SOLN) 2.5 Mg/3 Ml Vial.neb, 1 VIAL NEB BID for asthma, #50 VIAL 08/11/17 Tizanidine Hcl (TIZANIDINE HCL) 4 Mg Tablet, 1 TAB PO BID for muscle relaxer, # 60 TAB 08/11/17 Albuterol Sulfate (ALBUTEROL SULFATE NEB SOLN) 2.5 Mg/3 Ml Vial.neb, 1 VIAL NEB PRN Q4HRS for asthma, #50 VIAL 03/24/17 Guaifenesin (MUCINEX) 600 Mg Tablet.er, 1 TAB PO BID for congestion, #20 TAB 08/16/16 Budesonide/Formoterol Fumarate (SYMBICORT 160-4.5 MCG INHALER) 10.2 Gm Hfa.aer.ad, 1 PUFF IH BID for asthma, INHALER 08/16/16 Cholecalciferol (Vitamin D3) (Vitamin D) 50,000 Unit Capsule, 40337 UNIT PO WEEKLY for supplement, CAP 08/16/16 Oxybutynin Chloride (DITROPAN XL) 5 Mg Tab.er.24, 5 MG PO DAILY for bladder, TAB.SR 08/16/16 Losartan Potassium (LOSARTAN POTASSIUM) 50 Mg Tablet, 50 MG PO DAILY for HTN, TAB 08/16/16 Simvastatin (SIMVASTATIN) 10 Mg Tablet, 10 MG PO HS for FOR CHOLESTEROL, #30 TAB 0 Refills 08/16/16 Albuterol Sulfate (PROAIR HFA INHALER) 8.5 Gm Hfa.aer.ad, 17 GM IH Q4HRS W/A PRN for wheezing 07/23/13 Tiotropium [place] (SPIRIVA) 18 Mcg Cap.w.dev, 18 MCG IH DAILY for asthma 07/23/13 Montelukast Sodium (SINGULAIR TABLET) 10 Mg Tablet, 10 MG PO HS for allergies 07/23/13 Diltiazem Hcl (DILTIAZEM 24HR CD) 120 Mg Cap.er.24h, 120 MG PO DAILY for HTN 07/23/13 Discontinued Reported Medications Glimepiride (GLIMEPIRIDE) 1 Mg Tablet, 1 MG PO DAILY for diabetes, TAB 08/16/16 WHIT RODRIGUEZ MD Jun 16, 2018 12:07
--- NOTE | 2018-06-16 12:09 | PDOC3 ---
Discharge Summary Visit Information Date of Admission: Jun 13, 2018 Date of Discharge: Jun 16, 2018 Final Diagnosis COPD exacerbation, acute bronchitis dis-no pneumonia Mild pulmonary congestion Severe kyphoscoliosis Nonsmoker, CAD, hypertension-chronic stable Brief Hospital Course Allergies Allergies Coded Allergies Type Severity Reaction Last Updated Verified aspirin Allergy Intermediate 06/13/18 Yes Vital Signs Vital Signs Date Time Temp Pulse Resp B/P (MAP) Pulse Ox O2 Delivery O2 Flow Rate FiO2 06/16/18 11:09 100 Nasal Cannula 2.0 06/16/18 11:07 98.1 78 16 101/58 (72) 98.1 Lab Results Laboratory Tests Test 06/14/18 16:55 06/14/18 20:05 06/15/18 20:36 06/16/18 07:40 Glucose (Fingerstick) 104 mg/dL (70-99) 166 mg/dL (70-99) 104 mg/dL (70-99) 83 mg/dL (70-99) Test 06/16/18 11:26 06/16/18 11:41 Glucose (Fingerstick) 56 mg/dL (70-99) 58 mg/dL (70-99) Laboratory Tests Test 06/15/18 20:36 06/16/18 07:40 06/16/18 11:26 06/16/18 11:41 Glucose (Fingerstick) 104 mg/dL (70-99) 83 mg/dL (70-99) 56 mg/dL (70-99) 58 mg/dL (70-99) Brief Hospital Course Ms. Moncada is a 62 old admit with COPD, bronchitis, secondary CHF, cor pulmonale Lasix, DuoNeb's, pulmo consulted, cough medicine, supportive meds, home meds improved over 2 days Discharge Information Condition at Discharge: Improved Follow Up: Weeks Disposition/Orders: D/C to Home w/ HH Scheduled Albuterol Sulfate (Albuterol Sulfate Neb Soln) 2.5 Mg/3 Ml Vial.neb, 1 VIAL NEB PRN Q4HRS for asthma, #50 (Reported) Entered as Reported by: BILL GUTIERREZ on 03/24/172028 Last Action: Continued on 06/13/181821 by GARRY DUBON Albuterol Sulfate (Albuterol Sulfate Neb Soln) 2.5 Mg/3 Ml Vial.neb, 1 VIAL NEB BID for asthma, #50 (Reported) Entered as Reported by: Dieter Patel on 08/11/17 0248 Last Action: HELD on 06/13/181822 by GARRY DUBON Amoxicillin/Potassium Clav (Augmentin 500-125 Tablet) 1 Each Tablet, 1 TAB PO BID for pneumonia, #14 Prescribed by: WHIT RODRIGUEZ on 06/16/18 1205 Benzonatate (Benzonatate) 100 Mg Capsule, 1 CAP PO TID for cough, (Reported) Entered as Reported by: PETRA DELONG RN on 10/23/17 1101 Last Action: HELD on 06/13/181822 by GARRY DUBON Budesonide/Formoterol Fumarate (Symbicort 160-4.5 Mcg Inhaler) 10.2 Gm Hfa.aer.ad, 1 PUFF IH BID for asthma, (Reported) Entered as Reported by: DANETTE MERCADO on 08/16/161658 Last Action: HELD on 06/13/181821 by GARRY DUBON Cholecalciferol (Vitamin D3) (Vitamin D) 50,000 Unit Capsule, 50,000 UNIT PO WEEKLY for supplement, (Reported) Entered as Reported by: DANETTE MERCADO on 08/16/161658 Last Action: Converted on 06/13/181821 by GARRY DUBON Diltiazem Hcl (Diltiazem 24HR Cd) 120 Mg Cap.er.24h, 120 MG PO DAILY for HTN, ( Reported) Entered as Reported by: Antwan Simmons on 07/23/13 175 Last Action: Converted on 06/13/181821 by GARRY DUBON Guaifenesin (Mucinex) 600 Mg Tablet.er, 1 TAB PO BID for congestion, #20 ( Reported) Entered as Reported by: DANETTE MERCADO on 08/16/161658 Last Action: HELD on 06/13/181821 by GARRY DUBON Losartan Potassium (Losartan Potassium) 50 Mg Tablet, 50 MG PO DAILY for HTN, ( Reported) Entered as Reported by: DANETTE MERCADO on 08/16/161651 Last Action: Continued on 06/13/181821 by GARRY DUBON Montelukast Sodium (Singulair Tablet) 10 Mg Tablet, 10 MG PO HS for allergies, ( Reported) Entered as Reported by: Antwan Simmons on 07/23/131752 Last Action: Converted on 06/13/181821 by GARRY DUBON Oxybutynin Chloride (Ditropan Xl) 5 Mg Tab.er.24, 5 MG PO DAILY for bladder, ( Reported) Entered as Reported by: DANETTE MERCADO on 08/16/161658 Last Action: Converted on 06/13/181821 by GARRY DUBON Pantoprazole Sodium (Protonix) 40 Mg Granpkt.dr, 40 MG PO DAILY for GERD for 30 Days, #30 Prescribed by: GARRY DUBON on 01/24/18834 Last Action: Converted on 06/13/181822 by GARRY DUBON Simvastatin (Simvastatin) 10 Mg Tablet, 10 MG PO HS for FOR CHOLESTEROL, #30 Ref 0 (Reported) Entered as Reported by: DANETTE MERCADO on 08/16/161651 Last Action: Continued on 06/13/181821 by GARRY DUBON Tiotropium [place] (Spiriva) 18 Mcg Cap.w.dev, 18 MCG IH DAILY for asthma, ( Reported) Entered as Reported by: Antwan Simmons on 07/23/131752 Last Action: Converted on 06/13/181821 by GARRY DUBON Tizanidine Hcl (Tizanidine Hcl) 4 Mg Tablet, 1 TAB PO BID for muscle relaxer, # 60 (Reported) Entered as Reported by: Dieter Patel on 08/11/17 0248 Last Action: Converted on 06/13/181821 by GARRY DUBON Scheduled PRN Albuterol Sulfate (Proair Hfa Inhaler) 8.5 Gm Hfa.aer.ad, 17 GM IH Q4HRS W/A PRN for wheezing, (Reported) Entered as Reported by: Antwan Simmons on 07/23/131752 Last Action: HELD on 06/13/181821 by GARRY DUBON Metoclopramide Hcl (Metoclopramide Hcl) 5 Mg Tablet, 5 MG PO PRN BFRMEALHC PRN for NAUSEA/VOMITING, #60 Prescribed by: GARRY DUBON on 01/24/18834 Last Action: Continued on 06/13/181822 by GARRY DUBON Ondansetron Hcl (Zofran) 4 Mg Tablet, 1 TAB PO Q8HRS PRN for NAUSEA, #20 Prescribed by: RANDALL KNIGHT D.O. on 10/26/15 2378 Last Action: Converted on 06/13/181821 by GARRY DUBON Discontinued Medications Glimepiride (Glimepiride) 1 Mg Tablet, 1 MG PO DAILY for diabetes, (Reported) Entered as Reported by: DANETTE MERCADO on 08/16/16 1659 Last Action: Converted on 06/13/181821 by GARRY DUBON Patient Instructions Patient Instructions > 30 min face to face WHIT RODRIGUEZ MD Jun 16, 2018 12:09
--- NOTE | 2018-06-16 14:11 | PDOC ---
PULMONARY PROGRESS NOTES Subjective no soa/ feels better Vitals Vital Signs Date Time Temp Pulse Resp B/P (MAP) Pulse Ox O2 Delivery O2 Flow Rate FiO2 06/16/18 11:09 100 Nasal Cannula 2.0 06/16/18 11:07 98.1 78 16 101/58 (72) 98.1 General: Alert, No acute distress Lungs: Crackles Cardiovascular: S1, S2 Abdomen: Soft Neuro Exam: Alert Extremities: No Edema Labs Laboratory Tests Test 06/14/18 16:55 06/14/18 20:05 06/15/18 20:36 06/16/18 07:40 Glucose (Fingerstick) 104 mg/dL (70-99) 166 mg/dL (70-99) 104 mg/dL (70-99) 83 mg/dL (70-99) Test 06/16/18 11:26 06/16/18 11:41 Glucose (Fingerstick) 56 mg/dL (70-99) 58 mg/dL (70-99) Laboratory Tests Test 06/15/18 20:36 06/16/18 07:40 06/16/18 11:26 06/16/18 11:41 Glucose (Fingerstick) 104 mg/dL (70-99) 83 mg/dL (70-99) 56 mg/dL (70-99) 58 mg/dL (70-99) Medications Active Scripts Medications Dose Route/Sig Max Daily Dose Days Date Category Augmentin 500-125 Tablet (Amoxicillin/Potassium Clav) 1 Each Tablet 1 Tab PO BID 03/22/18 Rx Metoclopramide Hcl 5 Mg Tablet 5 Mg PO PRN BFRMEALHC PRN 01/24/18 Rx Protonix (Pantoprazole Sodium) 40 Mg Granpkt.dr 40 Mg PO DAILY 30 01/24/18 Rx Benzonatate 100 Mg Capsule 1 Cap PO TID 10/23/17 Reported Albuterol Sulfate Neb Soln (Albuterol Sulfate) 2.5 Mg/3 Ml Vial.neb 1 Vial NEB BID 08/11/17 Reported Tizanidine Hcl 4 Mg Tablet 1 Tab PO BID 08/11/17 Reported Albuterol Sulfate Neb Soln (Albuterol Sulfate) 2.5 Mg/3 Ml Vial.neb 1 Vial NEB PRN Q4HRS 03/24/17 Reported Mucinex (Guaifenesin) 600 Mg Tablet.er 1 Tab PO BID 08/16/16 Reported Glimepiride 1 Mg Tablet 1 Mg PO DAILY 08/16/16 Reported Symbicort 160-4.5 Mcg Inhaler (Budesonide/Formoterol Fumarate) 10.2 Gm Hfa.aer.ad 1 Puff IH BID 08/16/16 Reported Vitamin D (Cholecalciferol (Vitamin D3)) 50,000 Unit Capsule 50,000 Unit PO WEEKLY 08/16/16 Reported Ditropan Xl (Oxybutynin Chloride) 5 Mg Tab.er.24 5 Mg PO DAILY 08/16/16 Reported Losartan Potassium 50 Mg Tablet 50 Mg PO DAILY 08/16/16 Reported Simvastatin 10 Mg Tablet 10 Mg PO HS 08/16/16 Reported Zofran (Ondansetron Hcl) 4 Mg Tablet 1 Tab PO Q8HRS PRN 10/26/15 Rx Proair Hfa Inhaler (Albuterol Sulfate) 8.5 Gm Hfa.aer.ad 17 Gm IH Q4HRS W/A PRN 07/23/13 Reported Spiriva (Tiotropium [place]) 18 Mcg Cap.w.dev 18 Mcg IH DAILY 07/23/13 Reported Singulair Tablet (Montelukast Sodium) 10 Mg Tablet 10 Mg PO HS 07/23/13 Reported Diltiazem 24HR Cd (Diltiazem Hcl) 120 Mg Cap.er.24h 120 Mg PO DAILY 07/23/13 Reported Impression . 1. Acute hypoxic respiratory failure secondary to combination of mild congestive heart failure and chronic obstructive pulmonary disease exacerbation. 2. No definite pneumonia. 3. Severe kyphoscoliosis. 4. Abnormal chest x-ray revealing mild congestive heart failure. Plan . 1. Clinically improved with Lasix. 2. Continue present bronchodilators. 3. dc steroids 4. Continue diuresis. 5. ok with dc much better today GRACE BARCENAS MD Jun 16, 2018 14:11
[2018-06-16 15:15] VITALS: BP 119/88
--- NOTE | 2018-06-16 15:36 | NUR ---
SW following pt. Spoke with pt about HH options. Pt chose [facility] stating she was on the service with them in the past. HH services is arranged by Ashly from [facility]. SW arranged transportation via [employer] between [id number]. RN notified.
--- NOTE | 2018-06-16 16:37 | NUR ---
Discharge Note: TREASURE CALVERT [address] [place] [address] Discharge instructions and discharge home medications reviewed with Patient and a copy given. All questions have been answered and understanding verbalized. The following instructions and handouts were given: Diet, activity, medication list and follow up instructions provided to patient. Discontinued lines and drains: Peripheral IV discontinued and catheter intact. Patient discharged to Home w/services with Self via Wheelchair
[2018-06-20] MEDS ORDERED: ERGOCALCIFEROL (VITAMIN D2) 50,000 UNIT CAPSULE. PO SCH (09:00)
--- NOTE | 2018-06-20 09:13 | EKG ---
[facility] [address] [place] [address] Test Date: 2018-06-14 Test Time: 00:51:14 Pat Name: TREASURE CALVERT Department: Room: [facility] Gender: F School [employer] Operator: ANA LILIA : 1955 Requested By: GARRY DUBON Order Number: [id number] Reading MD: Spenser Shine MD Measurements Intervals [place] Rate: 111 P: 42 NV: 134 QRS: -79 QRSD: 118 T: 28 QT: 352 QTc: 482 Interpretive Statements SVT RBBB LAD Electronically Signed On 06-23-2018 9:24:55 CDT by Spenser Shine MD
[2018-09-08] MEDS ORDERED: OXYC1TAB15 PO (10:12)
== END 2018-06-16 16:05 | disposition home health service (06) | DRG 291 ==
LOC: ER 15:56 → 6 SOUTH 17:45
PROVIDERS: ADMIT Internal Medicine; ATTEND Internal Medicine
DX: I11.0 Hypertensive heart disease with heart failure (principal); J96.01 Acute respiratory failure with hypoxia; J44.1 Chronic obstructive pulmonary disease with (acute) exacerbation; I50.43 Acute on chronic combined systolic (congestive) and diastolic (congestive) heart failure; J20.9 Acute bronchitis, unspecified; E78.5 Hyperlipidemia, unspecified; E10.9 Type 1 diabetes mellitus without complications; M41.9 Scoliosis, unspecified; E78.00 Pure hypercholesterolemia, unspecified; I25.10 Atherosclerotic heart disease of native coronary artery without angina pectoris; I27.81 Cor pulmonale (chronic); K21.9 Gastro-esophageal reflux disease without esophagitis; Z79.4 Long term (current) use of insulin; Z82.49 Family history of ischemic heart disease and other diseases of the circulatory system; Z96.649 Presence of unspecified artificial hip joint; Z87.891 Personal history of nicotine dependence; F41.9 Anxiety disorder, unspecified; M19.90 Unspecified osteoarthritis, unspecified site
CPT/HCPCS: 36415; 71045; 80053; 82962; 83605; 83880; 84484; 85025; 87040; 87804; 93005; 93306; 94640; 94760; J1940; J2920; J2930; J7620; 99285-25

== ENCOUNTER 2018-07-13 06:10 | Inpatient (IN) | payer OTHER ==
[~2018-07-13] VITALS: Ht 157.5 cm; Wt 52.3 kg
[2018-07-13 06:44] LABS: BASO % 0 % (0-3); EOS # 0.2 x10^3/uL (0.0-0.7); EOS % 3 % (0-3); HEMATOCRIT 38.1 % (36.0-47.0); HEMOGLOBIN 12.3 g/dL (12.0-15.5); LYMPH # 0.4 x10^3/uL (1.0-4.8); LYMPH % 5 % (24-48); MEAN CORPUSCULAR HEMOGLOBIN 28 pg (25-35); MEAN CORPUSCULAR HGB CONC 32 g/dL (31-37); MEAN CORPUSCULAR VOLUME 86 fL (79-100); MONO # 0.6 x10^3/uL (0.0-1.1); MONO % 7 % (0-9); NEUT # 7.5 x10^3uL (1.8-7.7); NEUT % 85 % (31-73); PLATELET COUNT 430 x10^3/uL (140-400); RED BLOOD COUNT 4.45 x10^6/uL (3.50-5.40); RED CELL DISTRIBUTION WIDTH 16.4 % (11.5-14.5); WHITE BLOOD COUNT 8.8 x10^3/uL (4.0-11.0)
--- NOTE | 2018-07-13 06:44 | PHYS DOC ---
Past Medical History Past Medical History: Anxiety, Asthma, COPD, Diabetes-Type I, High Cholesterol , Heart Disease, Hypertension Additional Past Medical Histor: SCOLIOSIS Past Surgical History: Hip Replacement Additional Past Surgical Histo: R hip, Upper L kidney removed, 5 back surgeries due to fall Smoking: Quit Greater Than 1 Year Alcohol Use: Occasionally Drug Use: None Adult General Chief Complaint Chief Complaint: NAUSEA/VOMITING/DIARRHA HPI HPI Patient is a 62 year old female who brought in by EMS because of nausea and vomiting and chest pain. Patient complaining of 4 episodes of nonbloody vomiting since 4 AM without abdominal pain. Patient complaining of right-sided chest pain as a sharp pain after episodes of vomiting with radiation to her shoulder blade and rated her pain 9/10 associated with shortness of breath. Patient complaining of chills after episodes of vomiting and denies fever, urinary symptoms, diarrhea and constipation, sick contact. Patient has history of remote smoking and COPD without remaining oxygen but had O2 sat of low 80s at arrival of EMS that increased to low 90s with 2 L of oxygen. O2 sat dropped to 79 at room air during the time of changing to wall oxygen. Review of Systems Review of Systems Constitutional: Denies fever or chills [] Eyes: Denies change in visual acuity, redness, or eye pain [] HENT: Denies nasal congestion or sore throat [] Respiratory: Denies cough , reports shortness of breath [] Cardiovascular: No additional information not addressed in HPI [] GI: Denies abdominal pain, bloody stools or diarrhea , reports nausea and vomiting[] : Denies dysuria or hematuria [] Musculoskeletal: Denies back pain or joint pain [] Integument: Denies rash or skin lesions [] Neurologic: Denies headache, focal weakness or sensory changes [] Endocrine: Denies polyuria or polydipsia [] All other systems were reviewed and found to be within normal limits, except as documented in this note. Current Medications Current Medications Current Medications Medications (Trade) Dose Ordered Sig/Thanh Start Time Stop Time Status Last Admin Dose Admin Albuterol/ Ipratropium (Duoneb) 3 ml 1X ONCE 07/13/18 06:45 07/13/18 06:46 DC 07/13/18 06:51 3 ML Fentanyl Citrate (Fentanyl 2ml Vial) 25 mcg 1X ONCE 07/13/18 07:00 07/13/18 07:01 DC Methylprednisolone Sodium Succinate (SOLU-Medrol 125MG VIAL) 125 mg 1X ONCE 07/13/18 06:45 07/13/18 06:46 DC 07/13/18 06:42 125 MG Ondansetron HCl (Zofran) 4 mg 1X ONCE 07/13/18 06:45 07/13/18 06:46 DC 07/13/18 06:41 4 MG Sodium Chloride 1,000 ml @ 1,000 mls/hr Q1H 07/13/18 06:45 07/13/18 07:44 DC 07/13/18 06:42 1,000 MLS/HR Allergies Allergies Allergies Coded Allergies Type Severity Reaction Last Updated Verified aspirin Allergy Intermediate 06/13/18 Yes Physical Exam Physical Exam Constitutional: Well developed, moderate distress, non-toxic appearance. [] HENT: Normocephalic, atraumatic, oropharynx dry Eyes: PERRLA, EOMI, conjunctiva normal, no discharge. [] Neck: Normal range of motion, no tenderness, supple, no stridor. [] Cardiovascular: Tachycardia, no murmur [] Lungs & Thorax: Bilateral decrease of air movement, mild rhonchi, scoliosis Abdomen: Bowel sounds normal, mildly distended with gas, right upper quadrant guarding, soft, no tenderness, no masses, no pulsatile masses. [] Skin: Warm, dry, no erythema, no rash. [] Back: No tenderness, no CVA tenderness. [] Extremities: No tenderness, no cyanosis, no clubbing, ROM intact, no edema. [] Neurologic: Alert and oriented X3, somnolent, normal motor function, normal sensory function, no focal deficits noted. [] Psychologic: Affect normal, judgement normal, mood normal. [] Current Patient Data Vital Signs Vital Signs Date Time Temp Pulse Resp B/P (MAP) Pulse Ox O2 Delivery O2 Flow Rate FiO2 07/13/18 06:58 112 24 115/66 (82) 93 Nasal Cannula 3.0 07/13/18 06:20 98.9 98.9 Lab Values Laboratory Tests Test 07/13/18 06:30 07/13/18 06:50 07/13/18 07:40 White Blood Count 8.8 x10^3/uL (4.0-11.0) Red Blood Count 4.45 x10^6/uL (3.50-5.40) Hemoglobin 12.3 g/dL (12.0-15.5) Hematocrit 38.1 % (36.0-47.0) Mean Corpuscular Volume 86 fL (79-100) Mean Corpuscular Hemoglobin 28 pg (25-35) Mean Corpuscular Hemoglobin Concent 32 g/dL (31-37) Red Cell Distribution Width 16.4 % (11.5-14.5) H Platelet Count 430 x10^3/uL (140-400) H Neutrophils (%) (Auto) 85 % (31-73) H Lymphocytes (%) (Auto) 5 % (24-48) L Monocytes (%) (Auto) 7 % (0-9) Eosinophils (%) (Auto) 3 % (0-3) Basophils (%) (Auto) 0 % (0-3) Neutrophils # (Auto) 7.5 x10^3uL (1.8-7.7) Lymphocytes # (Auto) 0.4 x10^3/uL (1.0-4.8) L Monocytes # (Auto) 0.6 x10^3/uL (0.0-1.1) Eosinophils # (Auto) 0.2 x10^3/uL (0.0-0.7) Basophils # (Auto) 0.0 x10^3/uL (0.0-0.2) Platelet Estimate Pending D-Dimer (Lexie) 0.48 ug/mlFEU (0.00-0.50) Sodium Level 143 mmol/L (136-145) Potassium Level 4.0 mmol/L (3.5-5.1) Chloride Level 104 mmol/L (98-107) Carbon Dioxide Level 33 mmol/L (21-32) H Anion Gap 6 (6-14) Blood Urea Nitrogen 23 mg/dL (7-20) H Creatinine 0.9 mg/dL (0.6-1.0) Estimated GFR (Cockcroft-Gault) 63.7 BUN/Creatinine Ratio 26 (6-20) H Glucose Level 118 mg/dL (70-99) H Lactic Acid Level 0.6 mmol/L (0.4-2.0) Calcium Level 9.0 mg/dL (8.5-10.1) Magnesium Level 1.7 mg/dL (1.8-2.4) L Total Bilirubin 0.2 mg/dL (0.2-1.0) Aspartate Amino Transferase (AST) 12 U/L (15-37) L Alanine Aminotransferase (ALT) 15 U/L (14-59) Alkaline Phosphatase 124 U/L (46-116) H Creatine Kinase 52 U/L (26-192) Troponin I Quantitative < 0.017 ng/mL (0.000-0.055) TH-Hdb-H-Type Natriuretic Peptide 136 pg/mL (0-124) H Total Protein 7.8 g/dL (6.4-8.2) Albumin 3.8 g/dL (3.4-5.0) Albumin/Globulin Ratio 1.0 (1.0-1.7) Lipase 49 U/L (73-393) L Urine Collection Type Unknown Urine Color Yellow Urine Clarity Clear Urine pH 5.5 Urine Specific [place] 1.025 Urine Protein Negative mg/dL (NEG-TRACE) Urine Glucose (UA) Negative mg/dL (NEG) Urine Ketones (Stick) Negative mg/dL (NEG) Urine Blood Negative (NEG) Urine Nitrite Negative (NEG) Urine Bilirubin Negative (NEG) Urine Urobilinogen Dipstick 1.0 mg/dL (0.2 mg/dL) Urine Leukocyte Esterase Negative (NEG) Urine RBC 0 /HPF (0-2) Urine WBC 1-4 /HPF (0-4) Urine Squamous Epithelial Cells Occ /LPF Urine Bacteria 0 /HPF (0-FEW) Urine Hyaline Casts Occasional /HPF Urine Mucus Mod /LPF O2 Saturation 91 % (92-99) L Arterial Blood pH 7.16 (7.35-7.45) *L Arterial Blood pCO2 at Patient Temp 76 mmHg (35-46) *H Arterial Blood pO2 at Patient Temp 86 mmHg (65-108) Arterial Blood HCO3 27 mmol/L (21-28) Arterial Blood Base Excess -3 mmol/L (-3-3) FiO2 32 Laboratory Tests 07/13/18 06:30 Laboratory Tests 07/13/18 06:30 EKG EKG EKG interpreted by me. EKG at 0 620 showed sinus tachycardia at rate of 1:15, left atrial abnormality, abnormal left axis deviation, left anterior fascicular block, right bundle branch block, bifascicular block, LVH, normal KS and QT intervals, no acute ST and T-wave abnormality Radiology/Procedures Radiology/Procedures [facility] [address] [place] [address] IMAGING REPORT Signed PATIENT: TREASURE CALVERT ACCOUNT: [id number] : 1955 LOCATION: [address] [place] [address] AGE: 62 SEX: F EXAM STATUS: ADM IN ORD. PHYSICIAN: GEMA FUNES MD REASON: nausea and vomiting and right abdominal pain PROCEDURE: CT ABD PELV W/ IV CONTRST ONLY PQRS Compliance Statement: One or more of the following individualized dose reduction techniques were utilized for this examination: 1. Automated exposure control 2. Adjustment of the mA and/or kV according to patient size 3. Use of iterative reconstruction technique CT abdomen/pelvis with contrast 07/13/2018 8:06 AM INDICATION: Abdominal pain, vomiting COMPARISON: CT abdomen/pelvis January 18, 2018 TECHNIQUE: Multiple axial CT images of the abdomen and pelvis were obtained after the intravenous administration of 75 mL Omnipaque 300. Coronal and sagittal reformats are provided. FINDINGS: There is chronic airspace consolidation in the medial right lower lobe which may reflect atelectasis and/or infiltrate. New airspace consolidation in the left lung base may represent subsegmental atelectasis versus infiltrate. Heart size is borderline enlarged. There are hypoattenuating lesions within the hepatic parenchyma measuring up to 18 mm in segment , most suggestive of simple cysts. Spleen is nonenlarged. Adrenal glands are normal in appearance. There is moderate fatty atrophy of the pancreas. She's pancreatic mass. Gallbladder surgically absent. No intrahepatic or extrahepatic biliary ductal dilatation. Portal venous system is patent. Abdominal aorta is tortuous with mild calcified atheromatous plaque. There are no pathologically enlarged abdominal or pelvic lymph nodes. There is no abdominal free fluid. No free intraperitoneal air. Postsurgical changes are identified along the inferior pole the left kidney. No suspicious renal mass is identified. Kidneys enhance symmetrically. Subcentimeter hypodensities in the mid to inferior pole the right kidney are statistically favor to represent simple cysts. There is no hydronephrosis. No renal calculi are identified. Moderate amount of stool is noted within the right colon. The appendix is not definitively visualized. No pericecal inflammatory changes are identified. Evaluation of the pelvis is limited by streak artifact from right total hip arthroplasty. There is no significant joint effusion. Urinary bladder is within normal limits given degree of distention. Uterus and adnexa are within normal limits. There is S-shaped scoliosis of the thoracolumbar spine with multilevel facet fusion appears chronic. IMPRESSION: 1. New airspace consolidation within the left lung base which may represent pulmonary infiltrate in the appropriate clinical setting. 2. Chronic airspace consolidation in the medial right lower lobe may reflect atelectasis, scarring or pulmonary infiltrate. 3. Simple appearing hepatic cysts. No new or suspicious hepatic lesions are identified. 4. Cholecystectomy changes without intrahepatic or extrahepatic biliary ductal dilatation. 5. Partial left nephrectomy involving the inferior pole of the left kidney. No suspicious renal mass. No pathologically enlarged lymph nodes in abdomen and pelvis. Electronically signed by: Trell Rodriguez MD (07/13/2018 8:34 AM) [id number] DICTATED and SIGNED BY: TRELL RODRIGUEZ MD DATE: 07/13/18 0834 [facility] [address] [place] [address] IMAGING REPORT Signed PATIENT: TREASURE CALVERT ACCOUNT: [id number] : 1955 LOCATION: [address] [place] [address] AGE: 62 SEX: F EXAM STATUS: ADM IN ORD. PHYSICIAN: GEMA FUNES MD REASON: chest pain PROCEDURE: PORTABLE CHEST 1V Examination: PORTABLE CHEST 1V History: CHEST PAIN Comparison/Correlation: 05/16/2018 AP view of the chest Findings: Frontal view of the chest was obtained by portable technique with the patient upright. The cardiomediastinal silhouette is similar in appearance. Patient appears rotated with dextroconvex scoliosis of the thoracic spine. Mild right medial basilar atelectasis is similar to previous exam. Surgical clips at the level of the aortic hiatus noted. Left lung field is clear. No definite new infiltrate involving the lung stafford. Impression: No suspicious change. Electronically signed by: Tomi Sabillon MD (07/13/2018 8:09 AM) [facility] DICTATED and SIGNED BY: TOMI SABILLON MD DATE: 07/13/18 0809 [facility] [address] [place] [address] IMAGING REPORT Signed PATIENT: TREASURE CALVERT ACCOUNT: [id number] : 1955 LOCATION: ER AGE: 62 SEX: F EXAM STATUS: REG ER ORD. PHYSICIAN: GEMA FUNES MD REASON: R chest pain PROCEDURE: ABDOMEN LTD DATE OF SERVICE: 07/13/2018 6:57 AM EXAM: Abdominal ultrasound - limited CLINICAL HISTORY: Right chest pain. TECHNIQUE: Transabdominal ultrasound of the right upper quadrant was performed. COMPARISON: CT scans of the abdomen/pelvis dated 01/18/2018 and October 30, 2015. FINDINGS: The liver is normal in size and morphology. It demonstrates normal echogenicity. There is redemonstration of small cysts in the liver, the largest measuring 1.5 cm, not significantly changed. The portal vein is patent and demonstrates hepatopetal flow. No intrahepatic biliary ductal dilatation is identified. The gallbladder is surgically absent. No intrahepatic biliary ductal dilatation is identified. There is redemonstration of mild prominence of the common hepatic/common bile duct which measures 7-8 mm diameter. No obstructing lesion is identified. This is unchanged compared to the previous examinations and likely represents the normal postcholecystectomy state. If there is clinical concern for biliary ductal obstruction, MRCP/ERCP can be considered for further evaluation. The pancreas was unable to be visualized at this examination. The right kidney measures 9.8 x 3. x 4.4 cm. There is no mass lesion, shadowing calculus, or hydronephrosis. The inferior vena cava is patent. No ascites is seen. IMPRESSION: 1. Redemonstration of small hepatic cysts. 2. Redemonstration of mild postcholecystectomy biliary ductal prominence. 3. Nonvisualization of the pancreas. Electronically signed by: Roberto Gamboa MD (07/13/2018 7:25 AM) [facility] Course & Med Decision Making Course & Med Decision Making Pertinent Labs and Imaging studies reviewed. (See chart for details) Evaluation of patient in ER showed 62-year-old female patient with history of diabetes mellitus hypertension coronary artery disease and hypertension brought in by EMS because of nausea and vomiting and right-sided chest pain. Patient had O2 sat of 80s that improved with 2 L of oxygen to 90s with sinus tachycardia. Patient had remarkable lactic acid, white count, d-dimer, cardiac enzymes. Patient rated her pain 9/10 but was able to fall asleep without any pain medication. Aspirin was not given because of history of allergic to aspirin. EKG did not show acute ST and T-wave abnormalities. CT of abdomen and pelvis was requested. Delayed obtained ABG showed pH of 7.1 and PCO2 of 76 with Po2 of 85 and BiPAP was requested. Plan to admit patient with diagnosis of hypoxia and acute chest pain and nausea and vomiting. Patient requiring admission for further evaluation and treatment. Discussed with Dr. Harris who is in agreement with admission. Discussed findings and plan with patient and family, who acknowledge understanding and agreement. Dragon Disclaimer Dragon Disclaimer This electronic medical record was generated, in whole or in part, using a voice recognition dictation system. Departure Departure Impression: Primary Impression: Hypoxia Additional Impressions: CO2 narcosis COPD exacerbation Acute chest pain Acute respiratory acidosis Disposition: ADMITTED INPATIENT (at 0751) Admitting Physician: Alin Restrepo (accepted admission at 0750) Condition: GUARDED Referrals: JACKIE REESE MD (PCP) Critical Care Time Critical care time was 70 minutes exclusive of procedures. Problem Qualifiers GEMA FUNES MD Jul 13, 2018 06:44
[2018-07-13] MEDS ORDERED: ONDANSETRON PF 4 MG/2 ML VIAL. IV ONE (06:45)
[2018-07-13] MEDS ORDERED: IV NORMAL SALINE 1000ML BAG 1,000 ML IV SCH (06:45)
[2018-07-13] MEDS ORDERED: IPRATRPIUM/ALBUTEROL 0.5/2.5MG 3 ML NEBU. NEB ONE (06:45)
[2018-07-13] MEDS ORDERED: methylPREDNISolone SOD SUCC PF 125 MG/2 ML VIAL. IV ONE (06:45)
[2018-07-13 06:57] LABS: CREATININE 0.9 mg/dL (0.6-1.0); GFR 63.7
--- NOTE | 2018-07-13 06:59 | EKG ---
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
[2018-07-13] MEDS ORDERED: fentaNYL PF VIAL 100 MCG/2 ML VIAL IV ONE (07:00)
[2018-07-13 07:02] LABS: BILIRUBIN,URINE NEGATIVE (NEG); CLARITY,URINE CLEAR; COLOR,URINE YELLOW; NITRITE,URINE NEGATIVE (NEG); PH,URINE 5.5; PROTEIN,URINE NEGATIVE (NEG-TRACE)
[2018-07-13 07:08] LABS: ALBUMIN 3.8 g/dL (3.4-5.0); MAGNESIUM 1.7 mg/dL (1.8-2.4); TOTAL BILIRUBIN 0.2 mg/dL (0.2-1.0); TOTAL PROTEIN 7.8 g/dL (6.4-8.2)
[2018-07-13 07:11] LABS: HYALINE CASTS, URINE OCCASIONAL /HPF; SQUAMOUS EPITHELIAL CELL,UR OCC /LPF
[2018-07-13 07:12] LABS: BACTERIA,URINE 0 /HPF (0-FEW); RBC,URINE 0 /HPF (0-2)
--- NOTE | 2018-07-13 07:28 | RAD ---
DATE OF SERVICE: 07/13/2018 6:57 AM EXAM: Abdominal ultrasound - limited CLINICAL HISTORY: Right chest pain. TECHNIQUE: Transabdominal ultrasound of the right upper quadrant was performed. COMPARISON: CT scans of the abdomen/pelvis dated 01/18/2018 and October 30, 2015. FINDINGS: The liver is normal in size and morphology. It demonstrates normal echogenicity. There is redemonstration of small cysts in the liver, the largest measuring 1.5 cm, not significantly changed. The portal vein is patent and demonstrates hepatopetal flow. No intrahepatic biliary ductal dilatation is identified. The gallbladder is surgically absent. No intrahepatic biliary ductal dilatation is identified. There is redemonstration of mild prominence of the common hepatic/common bile duct which measures 7-8 mm diameter. No obstructing lesion is identified. This is unchanged compared to the previous examinations and likely represents the normal postcholecystectomy state. If there is clinical concern for biliary ductal obstruction, MRCP/ERCP can be considered for further evaluation. The pancreas was unable to be visualized at this examination. The right kidney measures 9.8 x 3. x 4.4 cm. There is no mass lesion, shadowing calculus, or hydronephrosis. The inferior vena cava is patent. No ascites is seen. IMPRESSION: 1. Redemonstration of small hepatic cysts. 2. Redemonstration of mild postcholecystectomy biliary ductal prominence. 3. Nonvisualization of the pancreas. Electronically signed by: Roberto Gamboa MD (07/13/2018 7:25 AM) [facility]
[2018-07-13 07:44] LABS: BASE EXCESS ABG -3 mmol/L (-3-3); HCO3 ABG 27 mmol/L (21-28); PO2 ABG 86 mmHg (65-108); SAT O2 ABG 91 % (92-99)
[2018-07-13] MEDS ORDERED: IOHEXOL 300 MG/ML 100ML VIAL. IV ONE (08:00)
[2018-07-13] MEDS ORDERED: cefTRIAXone IV Push 1 GM VIAL. IVP ONE (08:00)
[2018-07-13] MEDS ORDERED: CONTRAST GIVEN. MC PRN (08:00)
--- NOTE | 2018-07-13 08:11 | RAD ---
Examination: PORTABLE CHEST 1V History: CHEST PAIN Comparison/Correlation: 05/16/2018 AP view of the chest Findings: Frontal view of the chest was obtained by portable technique with the patient upright. The cardiomediastinal silhouette is similar in appearance. Patient appears rotated with dextroconvex scoliosis of the thoracic spine. Mild right medial basilar atelectasis is similar to previous exam. Surgical clips at the level of the aortic hiatus noted. Left lung field is clear. No definite new infiltrate involving the lung stafford. Impression: No suspicious change. Electronically signed by: Tomi Badillo MD (07/13/2018 8:09 AM) [facility]
[2018-07-13 08:30] VITALS: BP 124/74
[2018-07-13 08:32] LABS: FIO2 ABG 32; PCO2 ABG 76 mmHg (35-46)
--- NOTE | 2018-07-13 08:37 | RAD ---
PQRS Compliance Statement: One or more of the following individualized dose reduction techniques were utilized for this examination: 1. Automated exposure control 2. Adjustment of the mA and/or kV according to patient size 3. Use of iterative reconstruction technique CT abdomen/pelvis with contrast 07/13/2018 8:06 AM INDICATION: Abdominal pain, vomiting COMPARISON: CT abdomen/pelvis January 18, 2018 TECHNIQUE: Multiple axial CT images of the abdomen and pelvis were obtained after the intravenous administration of 75 mL Omnipaque 300. Coronal and sagittal reformats are provided. FINDINGS: There is chronic airspace consolidation in the medial right lower lobe which may reflect atelectasis and/or infiltrate. New airspace consolidation in the left lung base may represent subsegmental atelectasis versus infiltrate. Heart size is borderline enlarged. There are hypoattenuating lesions within the hepatic parenchyma measuring up to 18 mm in segment , most suggestive of simple cysts. Spleen is nonenlarged. Adrenal glands are normal in appearance. There is moderate fatty atrophy of the pancreas. She's pancreatic mass. Gallbladder surgically absent. No intrahepatic or extrahepatic biliary ductal dilatation. Portal venous system is patent. Abdominal aorta is tortuous with mild calcified atheromatous plaque. There are no pathologically enlarged abdominal or pelvic lymph nodes. There is no abdominal free fluid. No free intraperitoneal air. Postsurgical changes are identified along the inferior pole the left kidney. No suspicious renal mass is identified. Kidneys enhance symmetrically. Subcentimeter hypodensities in the mid to inferior pole the right kidney are statistically favor to represent simple cysts. There is no hydronephrosis. No renal calculi are identified. Moderate amount of stool is noted within the right colon. The appendix is not definitively visualized. No pericecal inflammatory changes are identified. Evaluation of the pelvis is limited by streak artifact from right total hip arthroplasty. There is no significant joint effusion. Urinary bladder is within normal limits given degree of distention. Uterus and adnexa are within normal limits. There is S-shaped scoliosis of the thoracolumbar spine with multilevel facet fusion appears chronic. IMPRESSION: 1. New airspace consolidation within the left lung base which may represent pulmonary infiltrate in the appropriate clinical setting. 2. Chronic airspace consolidation in the medial right lower lobe may reflect atelectasis, scarring or pulmonary infiltrate. 3. Simple appearing hepatic cysts. No new or suspicious hepatic lesions are identified. 4. Cholecystectomy changes without intrahepatic or extrahepatic biliary ductal dilatation. 5. Partial left nephrectomy involving the inferior pole of the left kidney. No suspicious renal mass. No pathologically enlarged lymph nodes in abdomen and pelvis. Electronically signed by: Dominga Choudhary MD (07/13/2018 8:34 AM) [id number]
[2018-07-13] MEDS: IV NORMAL SALINE 1000ML BAG 1,000 ML IV SCH ×2 (09:23→17:53)
--- NOTE | 2018-07-13 10:28 | PDOC1 ---
History and Physical Date of Admission Date of Admission DATE: 07/13/18 TIME: 10:27 Identification/Chief Complaint Chief Complaint seen in er , Patient is a 62 year old female who brought in by EMS because of nausea and vomiting and chest pain. Patient complaining of 4 episodes of nonbloody vomiting since 4 AM 07/13 without abdominal pain. Patient complaining of right-sided chest pain as a sharp pain after episodes of vomiting with radiation to her shoulder blade and rated her pain 9/10 associated with shortness of breath. Patient complaining of chills after episodes of vomiting and denies fever, urinary symptoms, diarrhea and constipation, sick contact. Patient has history of remote smoking and COPD without remaining oxygen but had O2 sat of low 80s at arrival of EMS that increased to low 90s with 2 L of oxygen. O2 sat dropped to [address] chest c/w new infiltrate She has chronic hypoxia and hypercapnia and history of restrictive lung disease secondary to her severe scoliosis. Past Medical History Past Medical History Past Medical History Past Medical History: Anxiety, Asthma, COPD, Diabetes-Type I, High Cholesterol , Heart Disease, Hypertension Additional Past Medical Histor: SCOLIOSIS Past Surgical History: Hip Replacement Additional Past Surgical Histo: R hip, Upper L kidney removed, 5 back surgeries due to fall Smoking: Quit Greater Than 1 Year Alcohol Use: Occasionally Drug Use: None family hx htn Cardiovascular: CAD, CHF, HTN, Hyperlipidemia Pulmonary: Asthma, COPD CENTRAL NERVOUS SYSTEM: Vertigo, Other GI: GERD Heme/Onc: No pertinent hx Hepatobiliary: No pertinent hx Psych: No pertinent hx Musculoskeletal: Osteoarthritis, Other Rheumatologic: No pertinent hx Infectious disease: No pertinent hx Renal/: No pertinent hx Endocrine: Diabetes Past Surgical History Past Surgical History: Total hip replacement, Other Family History Family History: Cancer, Heart Disease, Hypertension Social History Smoke: Quit ALCOHOL: none Drugs: None Current Problem List Problem List Problems Medical Problems: (1) Acute chest pain Status: Acute (2) Acute respiratory acidosis Status: Acute (3) CO2 narcosis Status: Acute (4) Hypoxia Status: Acute Current Medications Current Medications Current Medications Sodium Chloride 1,000 ml @ 1,000 mls/hr Q1H IV Last administered on 07/13/18at 06:42; Start 07/13/18 at 06:45; Stop 07/13/18 at 07:44; Status DC Ondansetron HCl (Zofran) 4 mg 1X ONCE IV Last administered on 07/13/18at 06:41 ; Start 07/13/18 at 06:45; Stop 07/13/18 at 06:46; Status DC Albuterol/ Ipratropium (Duoneb) 3 ml 1X ONCE NEB Last administered on at 06:51; Start 07/13/18 at 06:45; Stop 07/13/18 at 06:46; Status DC Methylprednisolone Sodium Succinate (SOLU-Medrol 125MG VIAL) 125 mg 1X ONCE IV Last administered on 07/13/18at 06:42; Start 07/13/18 at 06:45; Stop 07/13/18 at 06:46; Status DC Fentanyl Citrate (Fentanyl 2ml Vial) 25 mcg 1X ONCE IV ; Start 07/13/18 at 07: 00; Stop 07/13/18 at 07:01; Status DC Ceftriaxone Sodium (Rocephin) 1 gm 1X ONCE IVP Last administered on 07/13/18at 08:25; Start 07/13/18 at 08:00; Stop 07/13/18 at 08:01; Status DC Iohexol (Omnipaque 300 Mg/ml) 75 ml 1X ONCE IV Last administered on 07/13/18at 08:14; Start 07/13/18 at 08:00; Stop 07/13/18 at 08:01; Status DC Sodium Chloride 1,000 ml @ 150 mls/hr Q6H40M IV Last administered on at 09:23; Start 07/13/18 at 07:55; Stop 07/14/18 at 07:54 Lorazepam (Ativan) 0.5 mg PRN Q4HRS PRN IV ANXIETY / AGITATION Last administered on 07/13/18at 08:03; Start 07/13/18 at 08:00 Info (CONTRAST GIVEN -- Rx MONITORING) 1 each PRN DAILY PRN MC SEE COMMENTS; Start 07/13/18 at 08:00; Stop 07/15/18 at 07:59 Active Scripts Active Augmentin 500-125 Tablet (Amoxicillin/Potassium Clav) 1 Each Tablet 1 Tab PO BID Metoclopramide Hcl 5 Mg Tablet 5 Mg PO PRN BFRMEALHC PRN Protonix (Pantoprazole Sodium) 40 Mg Granpkt.dr 40 Mg PO DAILY 30 Days Zofran (Ondansetron Hcl) 4 Mg Tablet 1 Tab PO Q8HRS PRN Reported Benzonatate 100 Mg Capsule 1 Cap PO TID Albuterol Sulfate Neb Soln (Albuterol Sulfate) 2.5 Mg/3 Ml Vial.neb 1 Vial NEB BID Tizanidine Hcl 4 Mg Tablet 1 Tab PO BID Albuterol Sulfate Neb Soln (Albuterol Sulfate) 2.5 Mg/3 Ml Vial.neb 1 Vial NEB PRN Q4HRS Mucinex (Guaifenesin) 600 Mg Tablet.er 1 Tab PO BID Symbicort 160-4.5 Mcg Inhaler (Budesonide/Formoterol Fumarate) 10.2 Gm Hfa.aer.ad 1 Puff IH BID Vitamin D (Cholecalciferol (Vitamin D3)) 50,000 Unit Capsule 50,000 Unit PO WEEKLY Ditropan Xl (Oxybutynin Chloride) 5 Mg Tab.er.24 5 Mg PO DAILY Losartan Potassium 50 Mg Tablet 50 Mg PO DAILY Simvastatin 10 Mg Tablet 10 Mg PO HS Proair Hfa Inhaler (Albuterol Sulfate) 8.5 Gm Hfa.aer.ad 17 Gm IH Q4HRS W/A PRN Spiriva (Tiotropium [employer] Mdl) 18 Mcg Cap.w.dev 18 Mcg IH DAILY Singulair Tablet (Montelukast Sodium) 10 Mg Tablet 10 Mg PO HS Diltiazem 24HR Cd (Diltiazem Hcl) 120 Mg Cap.er.24h 120 Mg PO DAILY Allergies Allergies: Coded Allergies: aspirin (Verified Allergy, Intermediate, 06/13/18) TRIGGER ASTHMA ROS Review of System Review of Systems Review of Systems Constitutional: pos for chills [] Eyes: Denies change in visual acuity, redness, or eye pain [] HENT: Denies nasal congestion or sore throat [] Respiratory: Denies cough , reports shortness of breath [] Cardiovascular: No additional information not addressed in HPI [] GI: Denies abdominal pain, bloody stools or diarrhea , reports nausea and vomiting[] : Denies dysuria or hematuria [] Musculoskeletal: Denies back pain or joint pain [] Integument: Denies rash or skin lesions [] Neurologic: Denies headache, focal weakness or sensory changes [] Endocrine: Denies polyuria or polydipsia [] 14 pt systems were reviewed and found to be within normal limits, except as documented . Physical Exam Physical Exam Physical Exam Physical Exam Constitutional: Well developed, moderate distress, non-toxic appearance. [] HENT: Normocephalic, atraumatic, oropharynx dry Eyes: PERRLA, EOMI, conjunctiva normal, no discharge. [] Neck: Normal range of motion, no tenderness, supple, no stridor. [] Cardiovascular: Tachycardia, no murmur [] Lungs & Thorax: Bilateral decrease of air movement, mild rhonchi, scoliosis Abdomen: Bowel sounds normal, mildly distended with gas, right upper quadrant guarding, soft, no tenderness, no masses, no pulsatile masses. [] Skin: Warm, dry, no erythema, no rash. [] Back: No tenderness, no CVA tenderness. [] Extremities: No tenderness, no cyanosis, no clubbing, ROM intact, no edema. [] Neurologic: Alert and oriented X3, somnolent, normal motor function, normal sensory function, no focal deficits noted. [] Psychologic: Affect normal, judgement normal, mood normal. [] General: moderate distress, Other (LETHARGIC) HEENT: EOMI, Mucous membr. moist/pink Breasts: Not examined Abdomen: Soft Rectal Exam: not examined PELVIC: Examination not indicated Extremities: No cyanosis Skin: No breakdown Neuro: Normal speech, Cranial nerves 3-12 NL Psych/Mental Status: Mental status NL, Mood NL Vitals Vitals Vital Signs Date Time Temp Pulse Resp B/P (MAP) Pulse Ox O2 Delivery O2 Flow Rate FiO2 07/13/18 09:00 94 BiPAP/CPAP 07/13/18 08:30 98.8 117 16 124/74 (91) 98.8 07/13/18 08:30 3.0 Labs Labs Laboratory Tests Test 07/13/18 06:30 07/13/18 06:50 07/13/18 07:40 White Blood Count 8.8 x10^3/uL (4.0-11.0) Red Blood Count 4.45 x10^6/uL (3.50-5.40) Hemoglobin 12.3 g/dL (12.0-15.5) Hematocrit 38.1 % (36.0-47.0) Mean Corpuscular Volume 86 fL (79-100) Mean Corpuscular Hemoglobin 28 pg (25-35) Mean Corpuscular Hemoglobin Concent 32 g/dL (31-37) Red Cell Distribution Width 16.4 % (11.5-14.5) Platelet Count 430 x10^3/uL (140-400) Neutrophils (%) (Auto) 85 % (31-73) Lymphocytes (%) (Auto) 5 % (24-48) Monocytes (%) (Auto) 7 % (0-9) Eosinophils (%) (Auto) 3 % (0-3) Basophils (%) (Auto) 0 % (0-3) Neutrophils # (Auto) 7.5 x10^3uL (1.8-7.7) Lymphocytes # (Auto) 0.4 x10^3/uL (1.0-4.8) Monocytes # (Auto) 0.6 x10^3/uL (0.0-1.1) Eosinophils # (Auto) 0.2 x10^3/uL (0.0-0.7) Basophils # (Auto) 0.0 x10^3/uL (0.0-0.2) D-Dimer (Lexie) 0.48 ug/mlFEU (0.00-0.50) Sodium Level 143 mmol/L (136-145) Potassium Level 4.0 mmol/L (3.5-5.1) Chloride Level 104 mmol/L (98-107) Carbon Dioxide Level 33 mmol/L (21-32) Anion Gap 6 (6-14) Blood Urea Nitrogen 23 mg/dL (7-20) Creatinine 0.9 mg/dL (0.6-1.0) Estimated GFR (Cockcroft-Gault) 63.7 BUN/Creatinine Ratio 26 (6-20) Glucose Level 118 mg/dL (70-99) Lactic Acid Level 0.6 mmol/L (0.4-2.0) Calcium Level 9.0 mg/dL (8.5-10.1) Magnesium Level 1.7 mg/dL (1.8-2.4) Total Bilirubin 0.2 mg/dL (0.2-1.0) Aspartate Amino Transf (AST/SGOT) 12 U/L (15-37) Alanine Aminotransferase (ALT/SGPT) 15 U/L (14-59) Alkaline Phosphatase 124 U/L (46-116) Creatine Kinase 52 U/L (26-192) Troponin I Quantitative < 0.017 ng/mL (0.000-0.055) UZ-Oza-W-Type Natriuretic Peptide 136 pg/mL (0-124) Total Protein 7.8 g/dL (6.4-8.2) Albumin 3.8 g/dL (3.4-5.0) Albumin/Globulin Ratio 1.0 (1.0-1.7) Lipase 49 U/L (73-393) Urine Collection Type Unknown Urine Color Yellow Urine Clarity Clear Urine pH 5.5 Urine Specific Irving 1.025 Urine Protein Negative mg/dL (NEG-TRACE) Urine Glucose (UA) Negative mg/dL (NEG) Urine Ketones (Stick) Negative mg/dL (NEG) Urine Blood Negative (NEG) Urine Nitrite Negative (NEG) Urine Bilirubin Negative (NEG) Urine Urobilinogen Dipstick 1.0 mg/dL (0.2 mg/dL) Urine Leukocyte Esterase Negative (NEG) Urine RBC 0 /HPF (0-2) Urine WBC 1-4 /HPF (0-4) Urine Squamous Epithelial Cells Occ /LPF Urine Bacteria 0 /HPF (0-FEW) Urine Hyaline Casts Occasional /HPF Urine Mucus Mod /LPF O2 Saturation 91 % (92-99) Arterial Blood pH 7.16 (7.35-7.45) Arterial Blood pCO2 at Patient Temp 76 mmHg (35-46) Arterial Blood pO2 at Patient Temp 86 mmHg (65-108) Arterial Blood HCO3 27 mmol/L (21-28) Arterial Blood Base Excess -3 mmol/L (-3-3) FiO2 32 Laboratory Tests Test 07/13/18 06:30 07/13/18 06:50 07/13/18 07:40 White Blood Count 8.8 x10^3/uL (4.0-11.0) Red Blood Count 4.45 x10^6/uL (3.50-5.40) Hemoglobin 12.3 g/dL (12.0-15.5) Hematocrit 38.1 % (36.0-47.0) Mean Corpuscular Volume 86 fL (79-100) Mean Corpuscular Hemoglobin 28 pg (25-35) Mean Corpuscular Hemoglobin Concent 32 g/dL (31-37) Red Cell Distribution Width 16.4 % (11.5-14.5) Platelet Count 430 x10^3/uL (140-400) Neutrophils (%) (Auto) 85 % (31-73) Lymphocytes (%) (Auto) 5 % (24-48) Monocytes (%) (Auto) 7 % (0-9) Eosinophils (%) (Auto) 3 % (0-3) Basophils (%) (Auto) 0 % (0-3) Neutrophils # (Auto) 7.5 x10^3uL (1.8-7.7) Lymphocytes # (Auto) 0.4 x10^3/uL (1.0-4.8) Monocytes # (Auto) 0.6 x10^3/uL (0.0-1.1) Eosinophils # (Auto) 0.2 x10^3/uL (0.0-0.7) Basophils # (Auto) 0.0 x10^3/uL (0.0-0.2) D-Dimer (Lexie) 0.48 ug/mlFEU (0.00-0.50) Sodium Level 143 mmol/L (136-145) Potassium Level 4.0 mmol/L (3.5-5.1) Chloride Level 104 mmol/L (98-107) Carbon Dioxide Level 33 mmol/L (21-32) Anion Gap 6 (6-14) Blood Urea Nitrogen 23 mg/dL (7-20) Creatinine 0.9 mg/dL (0.6-1.0) Estimated GFR (Cockcroft-Gault) 63.7 BUN/Creatinine Ratio 26 (6-20) Glucose Level 118 mg/dL (70-99) Lactic Acid Level 0.6 mmol/L (0.4-2.0) Calcium Level 9.0 mg/dL (8.5-10.1) Magnesium Level 1.7 mg/dL (1.8-2.4) Total Bilirubin 0.2 mg/dL (0.2-1.0) Aspartate Amino Transf (AST/SGOT) 12 U/L (15-37) Alanine Aminotransferase (ALT/SGPT) 15 U/L (14-59) Alkaline Phosphatase 124 U/L (46-116) Creatine Kinase 52 U/L (26-192) Troponin I Quantitative < 0.017 ng/mL (0.000-0.055) HI-Yie-S-Type Natriuretic Peptide 136 pg/mL (0-124) Total Protein 7.8 g/dL (6.4-8.2) Albumin 3.8 g/dL (3.4-5.0) Albumin/Globulin Ratio 1.0 (1.0-1.7) Lipase 49 U/L (73-393) Urine Collection Type Unknown Urine Color Yellow Urine Clarity Clear Urine pH 5.5 Urine Specific Irving 1.025 Urine Protein Negative mg/dL (NEG-TRACE) Urine Glucose (UA) Negative mg/dL (NEG) Urine Ketones (Stick) Negative mg/dL (NEG) Urine Blood Negative (NEG) Urine Nitrite Negative (NEG) Urine Bilirubin Negative (NEG) Urine Urobilinogen Dipstick 1.0 mg/dL (0.2 mg/dL) Urine Leukocyte Esterase Negative (NEG) Urine RBC 0 /HPF (0-2) Urine WBC 1-4 /HPF (0-4) Urine Squamous Epithelial Cells Occ /LPF Urine Bacteria 0 /HPF (0-FEW) Urine Hyaline Casts Occasional /HPF Urine Mucus Mod /LPF O2 Saturation 91 % (92-99) Arterial Blood pH 7.16 (7.35-7.45) Arterial Blood pCO2 at Patient Temp 76 mmHg (35-46) Arterial Blood pO2 at Patient Temp 86 mmHg (65-108) Arterial Blood HCO3 27 mmol/L (21-28) Arterial Blood Base Excess -3 mmol/L (-3-3) FiO2 [address] abdomen/pelvis with contrast 07/13/2018 8:06 AM INDICATION: Abdominal pain, vomiting COMPARISON: CT abdomen/pelvis January 18, 2018 TECHNIQUE: Multiple axial CT images of the abdomen and pelvis were obtained after the intravenous administration of 75 mL Omnipaque 300. Coronal and sagittal reformats are provided. FINDINGS: There is chronic airspace consolidation in the medial right lower lobe which may reflect atelectasis and/or infiltrate. New airspace consolidation in the left lung base may represent subsegmental atelectasis versus infiltrate. Heart size is borderline enlarged. There are hypoattenuating lesions within the hepatic parenchyma measuring up to 18 mm in segment , most suggestive of simple cysts. Spleen is nonenlarged. Adrenal glands are normal in appearance. There is moderate fatty atrophy of the pancreas. She's pancreatic mass. Gallbladder surgically absent. No intrahepatic or extrahepatic biliary ductal dilatation. Portal venous system is patent. Abdominal aorta is tortuous with mild calcified atheromatous plaque. There are no pathologically enlarged abdominal or pelvic lymph nodes. There is no abdominal free fluid. No free intraperitoneal air. Postsurgical changes are identified along the inferior pole the left kidney. No suspicious renal mass is identified. Kidneys enhance symmetrically. Subcentimeter hypodensities in the mid to inferior pole the right kidney are statistically favor to represent simple cysts. There is no hydronephrosis. No renal calculi are identified. Moderate amount of stool is noted within the right colon. The appendix is not definitively visualized. No pericecal inflammatory changes are identified. Evaluation of the pelvis is limited by streak artifact from right total hip arthroplasty. There is no significant joint effusion. Urinary bladder is within normal limits given degree of distention. Uterus and adnexa are within normal limits. There is S-shaped scoliosis of the thoracolumbar spine with multilevel facet fusion appears chronic. IMPRESSION: 1. New airspace consolidation within the left lung base which may represent pulmonary infiltrate in the appropriate clinical setting. 2. Chronic airspace consolidation in the medial right lower lobe may reflect atelectasis, scarring or pulmonary infiltrate. 3. Simple appearing hepatic cysts. No new or suspicious hepatic lesions are identified. 4. Cholecystectomy changes without intrahepatic or extrahepatic biliary ductal dilatation. 5. Partial left nephrectomy involving the inferior pole of the left kidney. No suspicious renal mass. No pathologically enlarged lymph nodes in abdomen and pelvis. Electronically signed by: Trell Choudhary MD (07/13/2018 8:34 AM) [id number] DICTATED and SIGNED BY: TRELL CHOUDHARY MD DATE: 07/13/18 0834 VTE Prophylaxis Ordered VTE Prophylaxis Devices: Yes VTE Pharmacological Prophylaxi: Yes Assessment/Plan Assessment/Plan IMPRESSION: 1. airspace consolidation within the left lung base likely pulmonary infiltrate 2. Chronic airspace consolidation in the medial right lower lobe may reflect atelectasis, scarring or pulmonary infiltrate. 3. Simple appearing hepatic cysts. No new or suspicious hepatic lesions are identified. 4. chest pain 5. COPD, ie restrictive lung disease, severe 6. Morbid obesity 7. severe hypercapnic resp failure with severe resp acidosis and hypoxic resp failure 8. Aspiration pneumonia 9. DM 10.CHF 11.N/V intractable 12. severe scoliosis plan CT CHEST admit pulm consult cardiology consult emperic iv antibiotics blood cult trend troponin i BIPAP SUPPORT ID CONSULT iv zofran 4 mg q 4 hrs prn emesis dvt prophylaxis REPEAT ABG IN 1 HR HOLD SEDATING MEDS very poor prognosis due to severe hypercapnea, resp failure, acute severe compromise of respiratory disease per my chart review 37 MIN CC TIME JUNE CORREA MD Jul 13, 2018 10:28
--- NOTE | 2018-07-13 10:50 | PDOC2 ---
CARDIAC CONSULT DATE OF CONSULT Date of Consult DATE: 07/13/18 TIME: 10:37 REASON FOR CONSULT Reason for Consult: Chest pain REFERRING PHYSICIAN Referring Physician: Dr. Harris SOURCE Source: Chart review, Patient HISTORY OF PRESENT ILLNESS HISTORY OF PRESENT ILLNESS This is a 62 yo female, with a history of chronic respiratory failure, who presented secondary to nausea and vomiting with subsequent chest pain. Patient presently on BiPAP and drowsy secondary to Ativan. HPI obtain mainly from chart review. Vomiting began around 4am this morning. Following episode of vomiting, experienced sharp pain in her left chest. EMS was called and reportedly was noted to be hypoxic with oxygen saturations in the mid 80's. Was placed on BiPAP in ED. PAST MEDICAL HISTORY Cardiovascular: CHF, HTN, Hyperlipidemia Pulmonary: COPD, Pneumonia CENTRAL NERVOUS SYSTEM: Other (no pertinent hx) GI: GERD Heme/Onc: No pertinent hx Hepatobiliary: No pertinent hx Psych: Anxiety Musculoskeletal: Osteoarthritis, Other (scoliosis.) Infectious disease: No pertinent hx ENT: No pertinent hx Renal/: Chronic renal insuff Endocrine: Diabetes Dermatology: No pertinent hx PAST SURGICAL HISTORY Past Surgical History: Cholecystectomy, Total hip replacement (right ), Other ( left oophorectomy, partial left nephrectomy) FAMILY HISTORY Family History: Cancer (breast), Heart Disease, Hypertension CURRENT MEDICATIONS CURRENT MEDICATIONS Current Medications Medications (Trade) Dose Ordered Sig/Thanh Route PRN Reason Start Time Stop Time Status Last Admin Dose Admin Sodium Chloride 1,000 ml @ 1,000 mls/hr Q1H IV 07/13/18 06:45 07/13/18 07:44 DC 07/13/18 06:42 Ondansetron HCl (Zofran) 4 mg 1X ONCE IV 07/13/18 06:45 07/13/18 06:46 DC 07/13/18 06:41 Albuterol/ Ipratropium (Duoneb) 3 ml 1X ONCE NEB 07/13/18 06:45 07/13/18 06:46 DC 07/13/18 06:51 Methylprednisolone Sodium Succinate (SOLU-Medrol 125MG VIAL) 125 mg 1X ONCE IV 07/13/18 06:45 07/13/18 06:46 DC 07/13/18 06:42 Ceftriaxone Sodium (Rocephin) 1 gm 1X ONCE IVP 07/13/18 08:00 07/13/18 08:01 DC 07/13/18 08:25 Iohexol (Omnipaque 300 Mg/ml) 75 ml 1X ONCE IV 07/13/18 08:00 07/13/18 08:01 DC 07/13/18 08:14 Sodium Chloride 1,000 ml @ 150 mls/hr Q6H40M IV 07/13/18 07:55 07/14/18 07:54 07/13/18 09:23 Lorazepam (Ativan) 0.5 mg PRN Q4HRS PRN IV ANXIETY / AGITATION 07/13/18 08:00 07/13/18 08:03 ALLERGIES ALLERGIES: Coded Allergies: aspirin (Verified Allergy, Intermediate, 06/13/18) TRIGGER ASTHMA ROS Review of System 14 point ROS conducted with pertinent positives noted above in HPI although difficult to obtain as patient is presently drowsy from Ativan PHYSICAL EXAM General: No acute distress, Other (drowsy) HEENT: Atraumatic, Mucous membr. moist/pink Lungs: Clear to auscultation, Other (BiPAP) Heart: Other (tele ST, distant heart tones) Abdomen: Soft Extremities: No edema, Normal pulses Skin: No significant lesion Neuro: Sensation intact Psych/Mental Status: Other (drowsy) MUSCULOSKELETAL: Osteoarthritic changes both hands VITALS VITALS Vital Signs Date Time Temp Pulse Resp B/P (MAP) Pulse Ox O2 Delivery O2 Flow Rate FiO2 07/13/18 09:00 94 BiPAP/CPAP 07/13/18 08:30 98.8 117 16 124/74 (91) 98.8 07/13/18 08:30 3.0 LABS Lab: Laboratory Tests Test 07/13/18 06:30 07/13/18 06:50 07/13/18 07:40 White Blood Count 8.8 x10^3/uL (4.0-11.0) Red Blood Count 4.45 x10^6/uL (3.50-5.40) Hemoglobin 12.3 g/dL (12.0-15.5) Hematocrit 38.1 % (36.0-47.0) Mean Corpuscular Volume 86 fL (79-100) Mean Corpuscular Hemoglobin 28 pg (25-35) Mean Corpuscular Hemoglobin Concent 32 g/dL (31-37) Red Cell Distribution Width 16.4 % (11.5-14.5) Platelet Count 430 x10^3/uL (140-400) Neutrophils (%) (Auto) 85 % (31-73) Lymphocytes (%) (Auto) 5 % (24-48) Monocytes (%) (Auto) 7 % (0-9) Eosinophils (%) (Auto) 3 % (0-3) Basophils (%) (Auto) 0 % (0-3) Neutrophils # (Auto) 7.5 x10^3uL (1.8-7.7) Lymphocytes # (Auto) 0.4 x10^3/uL (1.0-4.8) Monocytes # (Auto) 0.6 x10^3/uL (0.0-1.1) Eosinophils # (Auto) 0.2 x10^3/uL (0.0-0.7) Basophils # (Auto) 0.0 x10^3/uL (0.0-0.2) D-Dimer (Lexie) 0.48 ug/mlFEU (0.00-0.50) Sodium Level 143 mmol/L (136-145) Potassium Level 4.0 mmol/L (3.5-5.1) Chloride Level 104 mmol/L (98-107) Carbon Dioxide Level 33 mmol/L (21-32) Anion Gap 6 (6-14) Blood Urea Nitrogen 23 mg/dL (7-20) Creatinine 0.9 mg/dL (0.6-1.0) Estimated GFR (Cockcroft-Gault) 63.7 BUN/Creatinine Ratio 26 (6-20) Glucose Level 118 mg/dL (70-99) Lactic Acid Level 0.6 mmol/L (0.4-2.0) Calcium Level 9.0 mg/dL (8.5-10.1) Magnesium Level 1.7 mg/dL (1.8-2.4) Total Bilirubin 0.2 mg/dL (0.2-1.0) Aspartate Amino Transf (AST/SGOT) 12 U/L (15-37) Alanine Aminotransferase (ALT/SGPT) 15 U/L (14-59) Alkaline Phosphatase 124 U/L (46-116) Creatine Kinase 52 U/L (26-192) Troponin I Quantitative < 0.017 ng/mL (0.000-0.055) UP-Tpt-A-Type Natriuretic Peptide 136 pg/mL (0-124) Total Protein 7.8 g/dL (6.4-8.2) Albumin 3.8 g/dL (3.4-5.0) Albumin/Globulin Ratio 1.0 (1.0-1.7) Lipase 49 U/L (73-393) Urine Collection Type Unknown Urine Color Yellow Urine Clarity Clear Urine pH 5.5 Urine Specific Welch 1.025 Urine Protein Negative mg/dL (NEG-TRACE) Urine Glucose (UA) Negative mg/dL (NEG) Urine Ketones (Stick) Negative mg/dL (NEG) Urine Blood Negative (NEG) Urine Nitrite Negative (NEG) Urine Bilirubin Negative (NEG) Urine Urobilinogen Dipstick 1.0 mg/dL (0.2 mg/dL) Urine Leukocyte Esterase Negative (NEG) Urine RBC 0 /HPF (0-2) Urine WBC 1-4 /HPF (0-4) Urine Squamous Epithelial Cells Occ /LPF Urine Bacteria 0 /HPF (0-FEW) Urine Hyaline Casts Occasional /HPF Urine Mucus Mod /LPF O2 Saturation 91 % (92-99) Arterial Blood pH 7.16 (7.35-7.45) Arterial Blood pCO2 at Patient Temp 76 mmHg (35-46) Arterial Blood pO2 at Patient Temp 86 mmHg (65-108) Arterial Blood HCO3 27 mmol/L (21-28) Arterial Blood Base Excess -3 mmol/L (-3-3) FiO2 32 ECHOCARDIOGRAM ECHOCARDIOGRAM <Conclusion> The left ventricle is hyperdynamic. The ejection fraction is estimated at 75-80%. There is normal LV segmental wall motion. Transmitral Doppler flow pattern is Grade I-abnormal relaxation pattern. Trace aortic regurgitation. Trace mitral regurgitation. Mild tricuspid regurgitation with an estimated PAP of 44 mmHg. There is no evidence of significant pericardial effusion. DATE: 06/15/18 1349 STRESS TEST STRESS TEST Conclusion 1. Abnormal baseline EKG but no EKG evidence of stress-induced ischemia. 2. Nuclear imaging shows no reversible ischemia or infarct. 3. Normal left ventricular systolic function with an ejection fraction of greater than 70%. 4. Low to moderately low risk Lexiscan nuclear stress test. DATE: 08/17/16 1410 ASSESSMENT/PLAN ASSESSMENT/PLAN 1. Chest pain, atypical; initial troponin negative. Doubt ACS. Recent echo with hyperdynamic left ventricle with an EF of 75-80% as noted above. 2. Acute respiratory failure with AE COPD and PNA; requiring BiPAP 3. Nausea/vomiting 4. Chronic diastolic HF, compensated 5. Hypertension; controlled 6. Sinus tach, reactive. 7. Hyperlipidemia; statin 8. Diabetes, II 9. CKD 10. Hypomagnesemia Recommendations Trend troponin lipid panel Allergy to ASA. on Plavix Replace Mg Follow pulmonary recommendations Treatment of PNA Consider outpatient ischemic evaluation based upon risk factors. Supportive care [id number] OLMEDO APRN Jul 13, 2018 10:50
--- NOTE | 2018-07-13 10:56 | PDOC ---
Infectious Disease Note Vital Sign Vital Signs Vital Signs Date Time Temp Pulse Resp B/P (MAP) Pulse Ox O2 Delivery O2 Flow Rate FiO2 07/13/18 09:00 94 BiPAP/CPAP 07/13/18 08:30 98.8 117 16 124/74 (91) 98.8 07/13/18 08:30 3.0 Labs Lab Laboratory Tests Test 07/13/18 06:30 07/13/18 06:50 07/13/18 07:40 White Blood Count 8.8 x10^3/uL (4.0-11.0) Red Blood Count 4.45 x10^6/uL (3.50-5.40) Hemoglobin 12.3 g/dL (12.0-15.5) Hematocrit 38.1 % (36.0-47.0) Mean Corpuscular Volume 86 fL (79-100) Mean Corpuscular Hemoglobin 28 pg (25-35) Mean Corpuscular Hemoglobin Concent 32 g/dL (31-37) Red Cell Distribution Width 16.4 % (11.5-14.5) Platelet Count 430 x10^3/uL (140-400) Neutrophils (%) (Auto) 85 % (31-73) Lymphocytes (%) (Auto) 5 % (24-48) Monocytes (%) (Auto) 7 % (0-9) Eosinophils (%) (Auto) 3 % (0-3) Basophils (%) (Auto) 0 % (0-3) Neutrophils # (Auto) 7.5 x10^3uL (1.8-7.7) Lymphocytes # (Auto) 0.4 x10^3/uL (1.0-4.8) Monocytes # (Auto) 0.6 x10^3/uL (0.0-1.1) Eosinophils # (Auto) 0.2 x10^3/uL (0.0-0.7) Basophils # (Auto) 0.0 x10^3/uL (0.0-0.2) D-Dimer (Lexie) 0.48 ug/mlFEU (0.00-0.50) Sodium Level 143 mmol/L (136-145) Potassium Level 4.0 mmol/L (3.5-5.1) Chloride Level 104 mmol/L (98-107) Carbon Dioxide Level 33 mmol/L (21-32) Anion Gap 6 (6-14) Blood Urea Nitrogen 23 mg/dL (7-20) Creatinine 0.9 mg/dL (0.6-1.0) Estimated GFR (Cockcroft-Gault) 63.7 BUN/Creatinine Ratio 26 (6-20) Glucose Level 118 mg/dL (70-99) Lactic Acid Level 0.6 mmol/L (0.4-2.0) Calcium Level 9.0 mg/dL (8.5-10.1) Magnesium Level 1.7 mg/dL (1.8-2.4) Total Bilirubin 0.2 mg/dL (0.2-1.0) Aspartate Amino Transf (AST/SGOT) 12 U/L (15-37) Alanine Aminotransferase (ALT/SGPT) 15 U/L (14-59) Alkaline Phosphatase 124 U/L (46-116) Creatine Kinase 52 U/L (26-192) Troponin I Quantitative < 0.017 ng/mL (0.000-0.055) GD-Eih-H-Type Natriuretic Peptide 136 pg/mL (0-124) Total Protein 7.8 g/dL (6.4-8.2) Albumin 3.8 g/dL (3.4-5.0) Albumin/Globulin Ratio 1.0 (1.0-1.7) Lipase 49 U/L (73-393) Urine Collection Type Unknown Urine Color Yellow Urine Clarity Clear Urine pH 5.5 Urine Specific [place] 1.025 Urine Protein Negative mg/dL (NEG-TRACE) Urine Glucose (UA) Negative mg/dL (NEG) Urine Ketones (Stick) Negative mg/dL (NEG) Urine Blood Negative (NEG) Urine Nitrite Negative (NEG) Urine Bilirubin Negative (NEG) Urine Urobilinogen Dipstick 1.0 mg/dL (0.2 mg/dL) Urine Leukocyte Esterase Negative (NEG) Urine RBC 0 /HPF (0-2) Urine WBC 1-4 /HPF (0-4) Urine Squamous Epithelial Cells Occ /LPF Urine Bacteria 0 /HPF (0-FEW) Urine Hyaline Casts Occasional /HPF Urine Mucus Mod /LPF O2 Saturation 91 % (92-99) Arterial Blood pH 7.16 (7.35-7.45) Arterial Blood pCO2 at Patient Temp 76 mmHg (35-46) Arterial Blood pO2 at Patient Temp 86 mmHg (65-108) Arterial Blood HCO3 27 mmol/L (21-28) Arterial Blood Base Excess -3 mmol/L (-3-3) FiO2 32 Objective Assessment Aspiration pneumonia COPD Hypoxia Hypercarbic respiratory failure DM CHF N/V Plan Plan of Care zosyn and zyvox supportive care check cultures BENI VICENTE MD Jul 13, 2018 10:56
[2018-07-13 11:00] VITALS: BP 119/74
--- NOTE | 2018-07-13 11:03 | CONS ---
DATE OF CONSULTATION: ATTENDING PHYSICIAN: Dr. Harris. REASON FOR CONSULTATION: Respiratory failure. HISTORY OF PRESENT ILLNESS: The patient is a 62-year-old female who has history of chronic respiratory failure. She has chronic hypoxia and hypercapnia and history of restrictive lung disease secondary to her severe scoliosis. She was brought into the hospital with some nausea, vomiting and chest pain. She had 4 episodes of nonbloody vomiting. The patient was also complaining of right-sided chest pain after episodes of vomiting. She had oxygen saturation of 80% when EMS arrived. The patient was noted to be hypercapnic. Her arterial blood gases revealed a pH of 7.16, pCO2 of 76 and a pO2 of 86. She was placed on BiPAP. I am unable to obtain much history from the patient as she received Ativan and sleepy. Her saturations are in the high 90s on BiPAP. She underwent imaging study including CT of the abdomen and pelvis. I have reviewed the lower sections of the lung. There is new airspace infiltrate in the left lung base. There is chronic atelectasis in the right lower lobe related to atelectasis. PAST MEDICAL HISTORY: History of COPD, history of restrictive lung disease secondary to severe scoliosis. History of chronic hypoxic hypercapnia, dyslipidemia, hypertension. PAST SURGICAL HISTORY: Left kidney removed. 5 back surgeries. ALLERGIES: ASPIRIN. MEDICATIONS: Reviewed as listed in the MRAD, she received antibiotics and steroids. REVIEW OF SYSTEMS: Unable to obtain from the patient. PHYSICAL EXAMINATION: GENERAL: She is sleepy. VITAL SIGNS: Blood pressure stable, pulse ox 97% on 3 liters. NECK: Supple. LUNGS: With diminished breath sounds. CARDIOVASCULAR: Regular rate and rhythm. ABDOMEN: Soft, obese. EXTREMITIES: With trace pitting edema. LABORATORY DATA: Reviewed. ABG discussed in my history of present illness. BUN 23, creatinine 0.9. D-dimer 0.48, which is within normal limits. White cell count 8.8. IMPRESSION: 1. [id number] hypercapnic respiratory failure secondary to chronic obstructive pulmonary disease exacerbation and suspected new left lower lobe pneumonia. 2. Nausea, vomiting present on admission. CT abdomen and pelvis with no acute abdominal pathology. 3. Underlying chronic and underlying severe restrictive lung disease secondary to severe scoliosis. 4. Abnormal CT chest with left lower lobe pneumonia and chronic right middle lobe atelectasis. RECOMMENDATIONS: 1. Continue with present BiPAP and follow ABGs. 2. Would avoid any further Ativan. 3. Bronchodilators. 4. Taper off steroids. 5. Continue antibiotics. 6. Follow GI recommendations. 7. Discussed with RN. We will follow along with you. cct 30 min GRACE BARCENAS MD DR: ANTONIO/jose JOB#: [id number] / [id number] ASHLEY
[2018-07-13 11:08] LABS: % BANDS 1 % (0-9); % LYMPHS 6 % (24-48); % MONOS 8 % (0-10); % SEGS 85 % (35-66); PLT ESTIMATE INCREASED (ADEQUATE)
[2018-07-13 11:28] LABS: CHOLESTEROL/HDL RATIO 3.2
[2018-07-13 11:33] LABS: BASE EXCESS ABG 0 mmol/L (-3-3); HCO3 ABG 30 mmol/L (21-28); PO2 ABG 81 mmHg (65-108); SAT O2 ABG 93 % (92-99)
[2018-07-13 11:35] LABS: PCO2 ABG 82 mmHg (35-46)
[2018-07-13] MEDS: PIPERACILLIN/TAZOBACTAM 3.375 GM in IV NORMAL SALINE 50ML 50 ML IV SCH ×2 (11:55→17:55)
[2018-07-13] MEDS ORDERED: ALBUTEROL SULFATE 2.5 MG/3 ML NEBU. NEB PRN (13:45)
[2018-07-13] MEDS ORDERED: ONDANSETRON ODT 4 MG TAB.RAPDIS. PO PRN (14:00)
[2018-07-13] MEDS ORDERED: PROP10TA PO (14:10)
[2018-07-13] MEDS ORDERED: FURO20TA3 PO (14:11)
[2018-07-13] MEDS ORDERED: GLIM1TAB2 PO (14:11)
[2018-07-13] MEDS ORDERED: CLOP75TA PO (14:11)
[2018-07-13] MEDS ORDERED: CYCL10TA2 PO (14:11)
[2018-07-13] MEDS ORDERED: POTA10TA12 PO (14:11)
[2018-07-13] MEDS ORDERED: HYDR-2765 PO (14:11)
[2018-07-13 14:41] VITALS: BP 103/64
[2018-07-13] MEDS: CLOPIDOGREL BISULFATE 75 MG TABLET PO SCH (14:57)
[2018-07-13] MEDS: BENZONATATE 100 MG CAPSULE. PO SCH ×2 (14:57→21:33)
[2018-07-13] MEDS: LOSARTAN POTASSIUM 50 MG TABLET. PO SCH (14:58)
[2018-07-13] MEDS: PANTOPRAZOLE 40 MG TABLET.DR. PO SCH (14:59)
[2018-07-13] MEDS: PROPRANOLOL 10 MG TABLET. PO SCH (15:00)
[2018-07-13] MEDS: IPRATRPIUM/ALBUTEROL 0.5/2.5MG 3 ML NEBU. NEB SCH ×2 (15:09→20:03)
[2018-07-13 15:25] LABS: BASE EXCESS ABG 0 mmol/L (-3-3); HCO3 ABG 28 mmol/L (21-28); PO2 ABG 81 mmHg (65-108); SAT O2 ABG 95 % (92-99)
[2018-07-13 15:26] LABS: PCO2 ABG 62 mmHg (35-46)
[2018-07-13 15:27] LABS: FIO2 ABG 30% BIPAP
[2018-07-13] MEDS ORDERED: MAGNESIUM SULFATE 2GM 50 ML IV ONE (15:30)
--- NOTE | 2018-07-13 16:19 | RAD ---
Examination: CT chest without contrast HISTORY: History of pneumonia COMPARISON: 08/11/2017 TECHNIQUE: Axial CT images of chest were performed without contrast. Coronal and sagittal reformats are performed. Exposure: One or more of the following individualized dose reduction techniques were utilized for this examination: 1. Automated exposure control 2. Adjustment of the mA and/or kV according to patient size 3. Use of iterative reconstruction technique FINDINGS: Examination limited due to thoracic scoliosis and due to lack of IV contrast. The ascending aorta measures 4 cm in transverse dimension. Mild cardiomegaly. Evaluation the mediastinum is limited due to severe scoliosis. Right lower lobe lung consolidation identified with narrowing of the right lower lobe bronchial branches, compared to prior exam from August 2017 the right lower lobe consolidation has mildly increased. New airspace opacity identified in the left lower lobe lung likely atelectasis or infiltrate. The visualized noncontrasted liver, demonstrates multiple cystic hypodensities as described on the abdomen CT. The visualized spleen grossly appears unremarkable. IMPRESSION: 1. Mild left lung base airspace opacity likely atelectasis or infiltrate or pneumonia. Follow-up to resolution. 2. Mild increase in right lower lobe chronic consolidation with narrowing of the right lower lobe bronchial branches. Electronically signed by: Olvin Fink MD (07/13/2018 4:16 PM) [id number]
[2018-07-13 19:16] VITALS: BP 95/68
[2018-07-13] MEDS: BUDESONIDE 0.5 MG/2 ML NEBU. NEB SCH (20:03)
[2018-07-13] MEDS ORDERED: NON FORMULARY ITEM (Budesonide/Formoterol Fumarate (Symbicort 160-4.5 Mcg Inhaler) 1 PUFF) IH SCH (21:00)
[2018-07-13] MEDS: SIMVASTATIN 10 MG TABLET PO SCH (21:32)
[2018-07-13] MEDS: MONTELUKAST SODIUM 10 MG TABLET. PO SCH (21:32)
[2018-07-13 23:11] VITALS: BP 118/72
--- NOTE | 2018-07-13 23:51 | CONS ---
DATE OF CONSULTATION: 07/13/2018 REQUESTING PHYSICIAN: Dr. Harris. REASON FOR CONSULTATION: Pneumonia. HISTORY OF PRESENT ILLNESS: This is a 62-year-old female with history of multiple medical problems including COPD, who called the EMS because she was having nausea, vomiting and chest pain. The patient in fact was found to be hypoxic and unable to breathe. The patient was brought in. The patient has been receiving BiPAP. The patient also had Ativan. So, she is not able to respond much to be able to communicate right now. Her vitals have been stable other than respiratory rate is high. Her ABGs were showing initially respiratory acidosis with pH 7.16 and pCO2 76, hence BiPAP. The patient was given a dose of Zosyn and maybe Rocephin. No nausea, vomiting, diarrhea noted since she is here according to the RN and no fever. PAST MEDICAL HISTORY: Positive for diabetes mellitus, hypertension, congestive heart failure, COPD, hyperlipidemia, scoliosis. Has had hip surgery, partial kidney removal done in the past and back surgery done in the past. SOCIAL HISTORY: Negative for smoking. She quit about a year ago. No alcohol use or drug use. ALLERGIES: LISTED ALLERGIC TO ASPIRIN. CURRENT MEDICATIONS: Reviewed. REVIEW OF SYSTEMS: As per HPI. All other systems reviewed and are negative. PHYSICAL EXAMINATION: GENERAL: Alert, arousable female who is on a BiPAP, sleepy because of the Ativan, in mild respiratory distress. VITAL SIGNS: Stable, afebrile with respiratory rate 24-28. HEENT: NAD. NECK: Supple, no JVP, no lymphadenopathy. LUNGS: Bilateral diffuse rhonchi present. No crackles. HEART: S1, S2 regular. No gallop or murmur. ABDOMEN: Soft, nontender, no organomegaly. EXTREMITIES: No edema or cyanosis. SKIN: Unremarkable. NEUROLOGIC: Alert, somnolent right now, but does move all the extremities. 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 LABORATORY DATA: ABGs as I mentioned in HPI. White count is normal. Platelets are 430,000. BUN and creatinine is 23 and 0.9. Her BNP was 136. Liver functions are normal. Lactic acid was normal. Urinalysis unremarkable. Chest x-ray was unremarkable, but CT of the abdomen and pelvis and the chest showed pulmonary infiltrate. IMPRESSION: 1. Nausea, vomiting with possible aspiration. 2. Aspiration pneumonitis. 3. Hypercarbic respiratory failure. 4. Hypoxemia. 5. Diabetes. 6. Hypertension. 7. Congestive heart failure. 8. Chronic obstructive pulmonary disease. PLAN: Would continue Zosyn, add Zyvox, supportive care. We will check the cultures and we will continue to follow. Thank you very much, Dr. Harris, for giving me the opportunity to participate in this patient's care. BENI VICENTE MD DR: LIEN/jose JOB#: [id number] / [id number]
[2018-07-14] MEDS: PIPERACILLIN/TAZOBACTAM 3.375 GM in IV NORMAL SALINE 50ML 50 ML IV SCH ×5 (02:01→23:18)
[2018-07-14] MEDS: IV NORMAL SALINE 1000ML BAG 1,000 ML IV SCH ×2 (02:45→03:55)
[2018-07-14 03:13] VITALS: BP 123/80
[2018-07-14 04:00] LABS: BASO % 0 % (0-3); EOS % 0 % (0-3); HEMATOCRIT 30.6 % (36.0-47.0); HEMOGLOBIN 9.9 g/dL (12.0-15.5); LYMPH # 0.4 x10^3/uL (1.0-4.8); LYMPH % 7 % (24-48); MEAN CORPUSCULAR HEMOGLOBIN 28 pg (25-35); MEAN CORPUSCULAR HGB CONC 32 g/dL (31-37); MEAN CORPUSCULAR VOLUME 86 fL (79-100); MONO # 0.5 x10^3/uL (0.0-1.1); MONO % 9 % (0-9); NEUT # 5.2 x10^3uL (1.8-7.7); NEUT % 84 % (31-73); PLATELET COUNT 339 x10^3/uL (140-400); RED BLOOD COUNT 3.56 x10^6/uL (3.50-5.40); RED CELL DISTRIBUTION WIDTH 16.7 % (11.5-14.5); WHITE BLOOD COUNT 6.2 x10^3/uL (4.0-11.0)
[2018-07-14 04:45] LABS: ALBUMIN 2.9 g/dL (3.4-5.0); ALBUMIN/GLOBULIN RATIO 0.9 (1.0-1.7); CALCIUM 8.6 mg/dL (8.5-10.1); CREATININE 0.8 mg/dL (0.6-1.0); GFR 72.9; TOTAL BILIRUBIN 0.4 mg/dL (0.2-1.0); TOTAL PROTEIN 6.2 g/dL (6.4-8.2)
[2018-07-14 07:00] VITALS: BP 123/69
[2018-07-14] MEDS: BUDESONIDE 0.5 MG/2 ML NEBU. NEB SCH ×2 (08:00→20:20)
[2018-07-14] MEDS: IPRATRPIUM/ALBUTEROL 0.5/2.5MG 3 ML NEBU. NEB SCH ×4 (08:00→20:20)
[2018-07-14 08:34] LABS: BASE EXCESS ABG -4 mmol/L (-3-3); HCO3 ABG 20 mmol/L (21-28); PCO2 ABG 32 mmHg (35-46); PO2 ABG 56 mmHg (65-108); SAT O2 ABG 90 % (92-99)
[2018-07-14 08:37] LABS: FIO2 ABG 21
--- NOTE | 2018-07-14 09:13 | PDOC ---
Infectious Disease Note Subjective Subjective says feeling better, still has BiPaP on ROS ROS no n/v/d/fever Vital Sign Vital Signs Vital Signs Date Time Temp Pulse Resp B/P (MAP) Pulse Ox O2 Delivery O2 Flow Rate FiO2 07/14/18 08:02 96 BiPAP/CPAP 07/14/18 07:00 98.6 97 26 123/69 (87) 98.6 07/13/18 08:30 3.0 Physical Exam PHYSICAL EXAM GENERAL: Alert, arousable female who is on a BiPAP, sleepy because of the Ativan, in mild respiratory distress. VITAL SIGNS: Stable, afebrile with respiratory rate 24-28. HEENT: NAD. NECK: Supple, no JVP, no lymphadenopathy. LUNGS: Bilateral diffuse rhonchi present. No crackles. HEART: S1, S2 regular. No gallop or murmur. ABDOMEN: Soft, nontender, no organomegaly. EXTREMITIES: No edema or cyanosis. SKIN: Unremarkable. NEUROLOGIC: Alert, somnolent right now, but does move all the extremities. 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 Labs Lab Laboratory Tests Test 07/13/18 11:25 07/13/18 12:00 07/13/18 15:18 07/13/18 17:20 O2 Saturation 93 % (92-99) 95 % (92-99) Arterial Blood pH 7.18 (7.35-7.45) 7.27 (7.35-7.45) Arterial Blood pCO2 at Patient Temp 82 mmHg (35-46) 62 mmHg (35-46) Arterial Blood pO2 at Patient Temp 81 mmHg (65-108) 81 mmHg (65-108) Arterial Blood HCO3 30 mmol/L (21-28) 28 mmol/L (21-28) Arterial Blood Base Excess 0 mmol/L (-3-3) 0 mmol/L (-3-3) Troponin I Quantitative < 0.017 ng/mL (0.000-0.055) FiO2 30% bipap Glucose (Fingerstick) 115 mg/dL (70-99) Test 07/13/18 18:14 07/13/18 20:35 07/14/18 03:35 07/14/18 08:00 Troponin I Quantitative < 0.017 ng/mL (0.000-0.055) Glucose (Fingerstick) 99 mg/dL (70-99) White Blood Count 6.2 x10^3/uL (4.0-11.0) Red Blood Count 3.56 x10^6/uL (3.50-5.40) Hemoglobin 9.9 g/dL (12.0-15.5) Hematocrit 30.6 % (36.0-47.0) Mean Corpuscular Volume 86 fL (79-100) Mean Corpuscular Hemoglobin 28 pg (25-35) Mean Corpuscular Hemoglobin Concent 32 g/dL (31-37) Red Cell Distribution Width 16.7 % (11.5-14.5) Platelet Count 339 x10^3/uL (140-400) Neutrophils (%) (Auto) 84 % (31-73) Lymphocytes (%) (Auto) 7 % (24-48) Monocytes (%) (Auto) 9 % (0-9) Eosinophils (%) (Auto) 0 % (0-3) Basophils (%) (Auto) 0 % (0-3) Neutrophils # (Auto) 5.2 x10^3uL (1.8-7.7) Lymphocytes # (Auto) 0.4 x10^3/uL (1.0-4.8) Monocytes # (Auto) 0.5 x10^3/uL (0.0-1.1) Eosinophils # (Auto) 0.0 x10^3/uL (0.0-0.7) Basophils # (Auto) 0.0 x10^3/uL (0.0-0.2) Sodium Level 141 mmol/L (136-145) Potassium Level 4.0 mmol/L (3.5-5.1) Chloride Level 106 mmol/L (98-107) Carbon Dioxide Level 26 mmol/L (21-32) Anion Gap 9 (6-14) Blood Urea Nitrogen 18 mg/dL (7-20) Creatinine 0.8 mg/dL (0.6-1.0) Estimated GFR (Cockcroft-Gault) 72.9 BUN/Creatinine Ratio 23 (6-20) Glucose Level 108 mg/dL (70-99) Calcium Level 8.6 mg/dL (8.5-10.1) Total Bilirubin 0.4 mg/dL (0.2-1.0) Aspartate Amino Transf (AST/SGOT) 12 U/L (15-37) Alanine Aminotransferase (ALT/SGPT) 12 U/L (14-59) Alkaline Phosphatase 93 U/L (46-116) Total Protein 6.2 g/dL (6.4-8.2) Albumin 2.9 g/dL (3.4-5.0) Albumin/Globulin Ratio 0.9 (1.0-1.7) O2 Saturation 90 % (92-99) Arterial Blood pH 7.42 (7.35-7.45) Arterial Blood pCO2 at Patient Temp 32 mmHg (35-46) Arterial Blood pO2 at Patient Temp 56 mmHg (65-108) Arterial Blood HCO3 20 mmol/L (21-28) Arterial Blood Base Excess -4 mmol/L (-3-3) FiO2 21 Test 07/14/18 08:14 Glucose (Fingerstick) 82 mg/dL (70-99) Micro Microbiology 07/13/18 Blood Culture - Preliminary, Resulted NO GROWTH AFTER 1 DAY Objective Assessment Aspiration pneumonia COPD Hypoxia Hypercarbic respiratory failure DM CHF N/V Plan Plan of Care zosyn and zyvox supportive care check cultures BENI VICENTE MD Jul 14, 2018 09:12
[2018-07-14] MEDS: PANTOPRAZOLE 40 MG TABLET.DR. PO SCH (09:33)
[2018-07-14] MEDS: BENZONATATE 100 MG CAPSULE. PO SCH ×3 (09:33→20:40)
[2018-07-14] MEDS: CLOPIDOGREL BISULFATE 75 MG TABLET PO SCH (09:33)
[2018-07-14] MEDS: LOSARTAN POTASSIUM 50 MG TABLET. PO SCH (09:33)
--- NOTE | 2018-07-14 10:26 | PDOC ---
PULMONARY PROGRESS NOTES Subjective on , used bipap all night, sob, cough better. not on home 02 Vitals Vital Signs Date Time Temp Pulse Resp B/P (MAP) Pulse Ox O2 Delivery O2 Flow Rate FiO2 07/14/18 09:33 97 123/69 07/14/18 08:02 96 BiPAP/CPAP 07/14/18 07:00 98.6 26 98.6 07/13/18 08:30 3.0 ROS: No Nausea General: Alert, No acute distress Lungs: Crackles Cardiovascular: S1, S2 Abdomen: Soft, Non-tender Neuro Exam: Alert Extremities: No Edema Labs Laboratory Tests Test 07/13/18 06:30 07/13/18 06:50 07/13/18 07:40 07/13/18 11:25 White Blood Count 8.8 x10^3/uL (4.0-11.0) Red Blood Count 4.45 x10^6/uL (3.50-5.40) Hemoglobin 12.3 g/dL (12.0-15.5) Hematocrit 38.1 % (36.0-47.0) Mean Corpuscular Volume 86 fL (79-100) Mean Corpuscular Hemoglobin 28 pg (25-35) Mean Corpuscular Hemoglobin Concent 32 g/dL (31-37) Red Cell Distribution Width 16.4 % (11.5-14.5) Platelet Count 430 x10^3/uL (140-400) Neutrophils (%) (Auto) 85 % (31-73) Lymphocytes (%) (Auto) 5 % (24-48) Monocytes (%) (Auto) 7 % (0-9) Eosinophils (%) (Auto) 3 % (0-3) Basophils (%) (Auto) 0 % (0-3) Neutrophils # (Auto) 7.5 x10^3uL (1.8-7.7) Lymphocytes # (Auto) 0.4 x10^3/uL (1.0-4.8) Monocytes # (Auto) 0.6 x10^3/uL (0.0-1.1) Eosinophils # (Auto) 0.2 x10^3/uL (0.0-0.7) Basophils # (Auto) 0.0 x10^3/uL (0.0-0.2) Segmented Neutrophils % 85 % (35-66) Band Neutrophils % 1 % (0-9) Lymphocytes % 6 % (24-48) Monocytes % 8 % (0-10) Platelet Estimate Increased (ADEQUATE) D-Dimer (Lexie) 0.48 ug/mlFEU (0.00-0.50) Sodium Level 143 mmol/L (136-145) Potassium Level 4.0 mmol/L (3.5-5.1) Chloride Level 104 mmol/L (98-107) Carbon Dioxide Level 33 mmol/L (21-32) Anion Gap 6 (6-14) Blood Urea Nitrogen 23 mg/dL (7-20) Creatinine 0.9 mg/dL (0.6-1.0) Estimated GFR (Cockcroft-Gault) 63.7 BUN/Creatinine Ratio 26 (6-20) Glucose Level 118 mg/dL (70-99) Lactic Acid Level 0.6 mmol/L (0.4-2.0) Calcium Level 9.0 mg/dL (8.5-10.1) Magnesium Level 1.7 mg/dL (1.8-2.4) Total Bilirubin 0.2 mg/dL (0.2-1.0) Aspartate Amino Transf (AST/SGOT) 12 U/L (15-37) Alanine Aminotransferase (ALT/SGPT) 15 U/L (14-59) Alkaline Phosphatase 124 U/L (46-116) Creatine Kinase 52 U/L (26-192) Troponin I Quantitative < 0.017 ng/mL (0.000-0.055) ZU-Wib-M-Type Natriuretic Peptide 136 pg/mL (0-124) Total Protein 7.8 g/dL (6.4-8.2) Albumin 3.8 g/dL (3.4-5.0) Albumin/Globulin Ratio 1.0 (1.0-1.7) Triglycerides Level 104 mg/dL (0-150) Cholesterol Level 185 mg/dL (0-200) LDL Cholesterol, Calculated 107 mg/dL (0-100) VLDL Cholesterol, Calculated 21 mg/dL (0-40) Non-HDL Cholesterol Calculated 128 mg/dL (0-129) HDL Cholesterol 57 mg/dL (40-60) Cholesterol/HDL Ratio 3.2 Lipase 49 U/L (73-393) Urine Collection Type Unknown Urine Color Yellow Urine Clarity Clear Urine pH 5.5 Urine Specific [place] 1.025 Urine Protein Negative mg/dL (NEG-TRACE) Urine Glucose (UA) Negative mg/dL (NEG) Urine Ketones (Stick) Negative mg/dL (NEG) Urine Blood Negative (NEG) Urine Nitrite Negative (NEG) Urine Bilirubin Negative (NEG) Urine Urobilinogen Dipstick 1.0 mg/dL (0.2 mg/dL) Urine Leukocyte Esterase Negative (NEG) Urine RBC 0 /HPF (0-2) Urine WBC 1-4 /HPF (0-4) Urine Squamous Epithelial Cells Occ /LPF Urine Bacteria 0 /HPF (0-FEW) Urine Hyaline Casts Occasional /HPF Urine Mucus Mod /LPF O2 Saturation 91 % (92-99) 93 % (92-99) Arterial Blood pH 7.16 (7.35-7.45) 7.18 (7.35-7.45) Arterial Blood pCO2 at Patient Temp 76 mmHg (35-46) 82 mmHg (35-46) Arterial Blood pO2 at Patient Temp 86 mmHg (65-108) 81 mmHg (65-108) Arterial Blood HCO3 27 mmol/L (21-28) 30 mmol/L (21-28) Arterial Blood Base Excess -3 mmol/L (-3-3) 0 mmol/L (-3-3) FiO2 32 Test 07/13/18 12:00 07/13/18 15:18 07/13/18 17:20 07/13/18 18:14 Troponin I Quantitative < 0.017 ng/mL (0.000-0.055) < 0.017 ng/mL (0.000-0.055) O2 Saturation 95 % (92-99) Arterial Blood pH 7.27 (7.35-7.45) Arterial Blood pCO2 at Patient Temp 62 mmHg (35-46) Arterial Blood pO2 at Patient Temp 81 mmHg (65-108) Arterial Blood HCO3 28 mmol/L (21-28) Arterial Blood Base Excess 0 mmol/L (-3-3) FiO2 30% bipap Glucose (Fingerstick) 115 mg/dL (70-99) Test 07/13/18 20:35 07/14/18 03:35 07/14/18 08:00 07/14/18 08:14 Glucose (Fingerstick) 99 mg/dL (70-99) 82 mg/dL (70-99) White Blood Count 6.2 x10^3/uL (4.0-11.0) Red Blood Count 3.56 x10^6/uL (3.50-5.40) Hemoglobin 9.9 g/dL (12.0-15.5) Hematocrit 30.6 % (36.0-47.0) Mean Corpuscular Volume 86 fL (79-100) Mean Corpuscular Hemoglobin 28 pg (25-35) Mean Corpuscular Hemoglobin Concent 32 g/dL (31-37) Red Cell Distribution Width 16.7 % (11.5-14.5) Platelet Count 339 x10^3/uL (140-400) Neutrophils (%) (Auto) 84 % (31-73) Lymphocytes (%) (Auto) 7 % (24-48) Monocytes (%) (Auto) 9 % (0-9) Eosinophils (%) (Auto) 0 % (0-3) Basophils (%) (Auto) 0 % (0-3) Neutrophils # (Auto) 5.2 x10^3uL (1.8-7.7) Lymphocytes # (Auto) 0.4 x10^3/uL (1.0-4.8) Monocytes # (Auto) 0.5 x10^3/uL (0.0-1.1) Eosinophils # (Auto) 0.0 x10^3/uL (0.0-0.7) Basophils # (Auto) 0.0 x10^3/uL (0.0-0.2) Sodium Level 141 mmol/L (136-145) Potassium Level 4.0 mmol/L (3.5-5.1) Chloride Level 106 mmol/L (98-107) Carbon Dioxide Level 26 mmol/L (21-32) Anion Gap 9 (6-14) Blood Urea Nitrogen 18 mg/dL (7-20) Creatinine 0.8 mg/dL (0.6-1.0) Estimated GFR (Cockcroft-Gault) 72.9 BUN/Creatinine Ratio 23 (6-20) Glucose Level 108 mg/dL (70-99) Calcium Level 8.6 mg/dL (8.5-10.1) Total Bilirubin 0.4 mg/dL (0.2-1.0) Aspartate Amino Transf (AST/SGOT) 12 U/L (15-37) Alanine Aminotransferase (ALT/SGPT) 12 U/L (14-59) Alkaline Phosphatase 93 U/L (46-116) Total Protein 6.2 g/dL (6.4-8.2) Albumin 2.9 g/dL (3.4-5.0) Albumin/Globulin Ratio 0.9 (1.0-1.7) O2 Saturation 90 % (92-99) Arterial Blood pH 7.42 (7.35-7.45) Arterial Blood pCO2 at Patient Temp 32 mmHg (35-46) Arterial Blood pO2 at Patient Temp 56 mmHg (65-108) Arterial Blood HCO3 20 mmol/L (21-28) Arterial Blood Base Excess -4 mmol/L (-3-3) FiO2 21 Laboratory Tests Test 07/13/18 11:25 07/13/18 12:00 07/13/18 15:18 07/13/18 17:20 O2 Saturation 93 % (92-99) 95 % (92-99) Arterial Blood pH 7.18 (7.35-7.45) 7.27 (7.35-7.45) Arterial Blood pCO2 at Patient Temp 82 mmHg (35-46) 62 mmHg (35-46) Arterial Blood pO2 at Patient Temp 81 mmHg (65-108) 81 mmHg (65-108) Arterial Blood HCO3 30 mmol/L (21-28) 28 mmol/L (21-28) Arterial Blood Base Excess 0 mmol/L (-3-3) 0 mmol/L (-3-3) Troponin I Quantitative < 0.017 ng/mL (0.000-0.055) FiO2 30% bipap Glucose (Fingerstick) 115 mg/dL (70-99) Test 07/13/18 18:14 07/13/18 20:35 07/14/18 03:35 07/14/18 08:00 Troponin I Quantitative < 0.017 ng/mL (0.000-0.055) Glucose (Fingerstick) 99 mg/dL (70-99) White Blood Count 6.2 x10^3/uL (4.0-11.0) Red Blood Count 3.56 x10^6/uL (3.50-5.40) Hemoglobin 9.9 g/dL (12.0-15.5) Hematocrit 30.6 % (36.0-47.0) Mean Corpuscular Volume 86 fL (79-100) Mean Corpuscular Hemoglobin 28 pg (25-35) Mean Corpuscular Hemoglobin Concent 32 g/dL (31-37) Red Cell Distribution Width 16.7 % (11.5-14.5) Platelet Count 339 x10^3/uL (140-400) Neutrophils (%) (Auto) 84 % (31-73) Lymphocytes (%) (Auto) 7 % (24-48) Monocytes (%) (Auto) 9 % (0-9) Eosinophils (%) (Auto) 0 % (0-3) Basophils (%) (Auto) 0 % (0-3) Neutrophils # (Auto) 5.2 x10^3uL (1.8-7.7) Lymphocytes # (Auto) 0.4 x10^3/uL (1.0-4.8) Monocytes # (Auto) 0.5 x10^3/uL (0.0-1.1) Eosinophils # (Auto) 0.0 x10^3/uL (0.0-0.7) Basophils # (Auto) 0.0 x10^3/uL (0.0-0.2) Sodium Level 141 mmol/L (136-145) Potassium Level 4.0 mmol/L (3.5-5.1) Chloride Level 106 mmol/L (98-107) Carbon Dioxide Level 26 mmol/L (21-32) Anion Gap 9 (6-14) Blood Urea Nitrogen 18 mg/dL (7-20) Creatinine 0.8 mg/dL (0.6-1.0) Estimated GFR (Cockcroft-Gault) 72.9 BUN/Creatinine Ratio 23 (6-20) Glucose Level 108 mg/dL (70-99) Calcium Level 8.6 mg/dL (8.5-10.1) Total Bilirubin 0.4 mg/dL (0.2-1.0) Aspartate Amino Transf (AST/SGOT) 12 U/L (15-37) Alanine Aminotransferase (ALT/SGPT) 12 U/L (14-59) Alkaline Phosphatase 93 U/L (46-116) Total Protein 6.2 g/dL (6.4-8.2) Albumin 2.9 g/dL (3.4-5.0) Albumin/Globulin Ratio 0.9 (1.0-1.7) O2 Saturation 90 % (92-99) Arterial Blood pH 7.42 (7.35-7.45) Arterial Blood pCO2 at Patient Temp 32 mmHg (35-46) Arterial Blood pO2 at Patient Temp 56 mmHg (65-108) Arterial Blood HCO3 20 mmol/L (21-28) Arterial Blood Base Excess -4 mmol/L (-3-3) FiO2 21 Test 07/14/18 08:14 Glucose (Fingerstick) 82 mg/dL (70-99) Medications Active Scripts Medications Dose Route/Sig Max Daily Dose Days Date Category Hydrocodone-Apap 7.5-325 (Hydrocodone Bit/Acetaminophen) 1 Tab Tablet 1 Tab PO PRN Q6HRS PRN 07/13/18 Reported Glimepiride 1 Mg Tablet 1 Mg PO DAILY 07/13/18 Reported Klor-Con 10 (Potassium Chloride) 10 Meq Tablet.er 10 Meq PO DAILY 07/13/18 Reported Furosemide 20 Mg Tablet 1 Tab PO DAILY 07/13/18 Reported Clopidogrel (Clopidogrel Bisulfate) 75 Mg Tablet 75 Mg PO DAILY 07/13/18 Reported Cyclobenzaprine Hcl 10 Mg Tablet 1 Tab PO BID 07/13/18 Reported Propranolol Hcl 10 Mg Tablet 10 Mg PO DAILY 07/13/18 Reported Augmentin 500-125 Tablet (Amoxicillin/Potassium Clav) 1 Each Tablet 1 Tab PO BID 06/16/18 Rx Metoclopramide Hcl 5 Mg Tablet 5 Mg PO PRN BFRMEALHC PRN 01/24/18 Rx Protonix (Pantoprazole Sodium) 40 Mg Granpkt.dr 40 Mg PO DAILY 30 01/24/18 Rx Benzonatate 100 Mg Capsule 1 Cap PO TID 10/23/17 Reported Albuterol Sulfate Neb Soln (Albuterol Sulfate) 2.5 Mg/3 Ml Vial.neb 1 Vial NEB BID 08/11/17 Reported Tizanidine Hcl 4 Mg Tablet 1 Tab PO BID 08/11/17 Reported Albuterol Sulfate Neb Soln (Albuterol Sulfate) 2.5 Mg/3 Ml Vial.neb 1 Vial NEB PRN Q4HRS 03/24/17 Reported Mucinex (Guaifenesin) 600 Mg Tablet.er 1 Tab PO BID 08/16/16 Reported Symbicort 160-4.5 Mcg Inhaler (Budesonide/Formoterol Fumarate) 10.2 Gm Hfa.aer.ad 1 Puff IH BID 08/16/16 Reported Vitamin D (Cholecalciferol (Vitamin D3)) 50,000 Unit Capsule 50,000 Unit PO WEEKLY 08/16/16 Reported Ditropan Xl (Oxybutynin Chloride) 5 Mg Tab.er.24 5 Mg PO DAILY 08/16/16 Reported Losartan Potassium 50 Mg Tablet 50 Mg PO DAILY 08/16/16 Reported Simvastatin 10 Mg Tablet 10 Mg PO HS 08/16/16 Reported Zofran (Ondansetron Hcl) 4 Mg Tablet 1 Tab PO Q8HRS PRN 10/26/15 Rx Proair Hfa Inhaler (Albuterol Sulfate) 8.5 Gm Hfa.aer.ad 17 Gm IH Q4HRS W/A PRN 07/23/13 Reported Spiriva (Tiotropium [place]) 18 Mcg Cap.w.dev 18 Mcg IH DAILY 07/23/13 Reported Singulair Tablet (Montelukast Sodium) 10 Mg Tablet 10 Mg PO HS 07/23/13 Reported Diltiazem 24HR Cd (Diltiazem Hcl) 120 Mg Cap.er.24h 120 Mg PO DAILY 07/23/13 Reported Impression . IMPRESSION: 1. Flxtp-yd-[id number] hypercapnic respiratory failure secondary to chronic obstructive pulmonary disease exacerbation and suspected new left lower lobe pneumonia. 2. Nausea, vomiting present on admission. CT abdomen and pelvis with no acute abdominal pathology. 3. Underlying chronic and underlying severe restrictive lung disease secondary to severe scoliosis. 4. Abnormal CT chest with left lower lobe pneumonia and chronic right middle lobe atelectasis. Plan . RECOMMENDATIONS: 1. BiPAP prn during day, cont at night, setting reviewed 2. avoid over sedation 3. Bronchodilators. 4. off steroids. 5. Continue antibiotics. per id zosyn and zyvox 6. Follow GI recommendations. 7. Discussed with RN, pt. RODRIGO JONES MD Jul 14, 2018 10:26
[2018-07-14 11:00] VITALS: BP 128/81
[2018-07-14] MEDS: PROPRANOLOL 10 MG TABLET. PO SCH (11:04)
[2018-07-14 15:00] VITALS: BP 125/77
--- NOTE | 2018-07-14 19:42 | PDOC ---
PROGRESS NOTES Chief Complaint Chief Complaint 1. airspace consolidation within the left lung base likely pulmonary infiltrate 2. Chronic airspace consolidation in the medial right lower lobe may reflect atelectasis, scarring or pulmonary infiltrate. 3. Simple appearing hepatic cysts. No new or suspicious hepatic lesions are identified. 4. chest pain pleuritic in nature, unlikely cardiac in nature 5. COPD, ie restrictive lung disease, severe 6. Morbid obesity 7. severe hypercapnic resp failure with severe resp acidosis and hypoxic resp failure 8. Aspiration pneumonia 9. DM 10.CHF 11.N/V intractable 12. severe scoliosis plan continue empiric iv antibiotics follow blood cult demand ischemia most likely etiology of elevated troponin BIPAP SUPPORT ID CONSULT appreciated symptomatic relief of symptoms dvt prophylaxis reassess in the am History of Present Illness History of Present Illness patient lying in bed in no apparent distress, no fever or chills no acute events reported overnight. Vitals Vitals Vital Signs Date Time Temp Pulse Resp B/P (MAP) Pulse Ox O2 Delivery O2 Flow Rate FiO2 07/14/18 15:46 90 Nasal Cannula 1.0 07/14/18 15:00 97.9 82 20 125/77 (93) 97.9 Physical Exam Physical Exam GENERAL: Alert, awake oriented in person and situation, no acute distress. HEENT: NAD. atraumatic, peerla eomi NECK: Supple, no JVP, no lymphadenopathy. LUNGS: Bilateral diffuse rhonchi present. No crackles. HEART: S1, S2 regular. No gallop or murmur. ABDOMEN: Soft, nontender, no organomegaly. EXTREMITIES: No edema or cyanosis. SKIN: Unremarkable. NEUROLOGIC: Alert, cn 2 to 12 intact no focal neurological deficits. General: No acute distress, Other (drowsy) Heart: Other (tele ST, distant heart tones) Lungs: Crackles Abdomen: Soft Extremities: No edema, Normal pulses Skin: No significant lesion Labs LABS Laboratory Tests Test 07/13/18 20:35 07/14/18 03:35 07/14/18 08:00 07/14/18 08:14 Glucose (Fingerstick) 99 mg/dL (70-99) 82 mg/dL (70-99) White Blood Count 6.2 x10^3/uL (4.0-11.0) Red Blood Count 3.56 x10^6/uL (3.50-5.40) Hemoglobin 9.9 g/dL (12.0-15.5) Hematocrit 30.6 % (36.0-47.0) Mean Corpuscular Volume 86 fL (79-100) Mean Corpuscular Hemoglobin 28 pg (25-35) Mean Corpuscular Hemoglobin Concent 32 g/dL (31-37) Red Cell Distribution Width 16.7 % (11.5-14.5) Platelet Count 339 x10^3/uL (140-400) Neutrophils (%) (Auto) 84 % (31-73) Lymphocytes (%) (Auto) 7 % (24-48) Monocytes (%) (Auto) 9 % (0-9) Eosinophils (%) (Auto) 0 % (0-3) Basophils (%) (Auto) 0 % (0-3) Neutrophils # (Auto) 5.2 x10^3uL (1.8-7.7) Lymphocytes # (Auto) 0.4 x10^3/uL (1.0-4.8) Monocytes # (Auto) 0.5 x10^3/uL (0.0-1.1) Eosinophils # (Auto) 0.0 x10^3/uL (0.0-0.7) Basophils # (Auto) 0.0 x10^3/uL (0.0-0.2) Sodium Level 141 mmol/L (136-145) Potassium Level 4.0 mmol/L (3.5-5.1) Chloride Level 106 mmol/L (98-107) Carbon Dioxide Level 26 mmol/L (21-32) Anion Gap 9 (6-14) Blood Urea Nitrogen 18 mg/dL (7-20) Creatinine 0.8 mg/dL (0.6-1.0) Estimated GFR (Cockcroft-Gault) 72.9 BUN/Creatinine Ratio 23 (6-20) Glucose Level 108 mg/dL (70-99) Calcium Level 8.6 mg/dL (8.5-10.1) Total Bilirubin 0.4 mg/dL (0.2-1.0) Aspartate Amino Transf (AST/SGOT) 12 U/L (15-37) Alanine Aminotransferase (ALT/SGPT) 12 U/L (14-59) Alkaline Phosphatase 93 U/L (46-116) Total Protein 6.2 g/dL (6.4-8.2) Albumin 2.9 g/dL (3.4-5.0) Albumin/Globulin Ratio 0.9 (1.0-1.7) O2 Saturation 90 % (92-99) Arterial Blood pH 7.42 (7.35-7.45) Arterial Blood pCO2 at Patient Temp 32 mmHg (35-46) Arterial Blood pO2 at Patient Temp 56 mmHg (65-108) Arterial Blood HCO3 20 mmol/L (21-28) Arterial Blood Base Excess -4 mmol/L (-3-3) FiO2 21 Test 07/14/18 11:18 07/14/18 17:38 Glucose (Fingerstick) 113 mg/dL (70-99) 108 mg/dL (70-99) Review of Systems Review of Systems pertinent as per hpi otherwise 10 point review is negative. Assessment and Plan Assessmemt and Plan Problems Medical Problems: (1) Acute chest pain Status: Acute (2) Acute respiratory acidosis Status: Acute (3) CO2 narcosis Status: Acute (4) Hypoxia Status: Acute Comment Review of Relevant I have reviewed the following items jose angel (where applicable) has been applied. Labs Laboratory Tests Test 07/13/18 06:30 07/13/18 06:50 07/13/18 07:40 07/13/18 11:25 White Blood Count 8.8 x10^3/uL (4.0-11.0) Red Blood Count 4.45 x10^6/uL (3.50-5.40) Hemoglobin 12.3 g/dL (12.0-15.5) Hematocrit 38.1 % (36.0-47.0) Mean Corpuscular Volume 86 fL (79-100) Mean Corpuscular Hemoglobin 28 pg (25-35) Mean Corpuscular Hemoglobin Concent 32 g/dL (31-37) Red Cell Distribution Width 16.4 % (11.5-14.5) Platelet Count 430 x10^3/uL (140-400) Neutrophils (%) (Auto) 85 % (31-73) Lymphocytes (%) (Auto) 5 % (24-48) Monocytes (%) (Auto) 7 % (0-9) Eosinophils (%) (Auto) 3 % (0-3) Basophils (%) (Auto) 0 % (0-3) Neutrophils # (Auto) 7.5 x10^3uL (1.8-7.7) Lymphocytes # (Auto) 0.4 x10^3/uL (1.0-4.8) Monocytes # (Auto) 0.6 x10^3/uL (0.0-1.1) Eosinophils # (Auto) 0.2 x10^3/uL (0.0-0.7) Basophils # (Auto) 0.0 x10^3/uL (0.0-0.2) Segmented Neutrophils % 85 % (35-66) Band Neutrophils % 1 % (0-9) Lymphocytes % 6 % (24-48) Monocytes % 8 % (0-10) Platelet Estimate Increased (ADEQUATE) D-Dimer (Lexie) 0.48 ug/mlFEU (0.00-0.50) Sodium Level 143 mmol/L (136-145) Potassium Level 4.0 mmol/L (3.5-5.1) Chloride Level 104 mmol/L (98-107) Carbon Dioxide Level 33 mmol/L (21-32) Anion Gap 6 (6-14) Blood Urea Nitrogen 23 mg/dL (7-20) Creatinine 0.9 mg/dL (0.6-1.0) Estimated GFR (Cockcroft-Gault) 63.7 BUN/Creatinine Ratio 26 (6-20) Glucose Level 118 mg/dL (70-99) Lactic Acid Level 0.6 mmol/L (0.4-2.0) Calcium Level 9.0 mg/dL (8.5-10.1) Magnesium Level 1.7 mg/dL (1.8-2.4) Total Bilirubin 0.2 mg/dL (0.2-1.0) Aspartate Amino Transf (AST/SGOT) 12 U/L (15-37) Alanine Aminotransferase (ALT/SGPT) 15 U/L (14-59) Alkaline Phosphatase 124 U/L (46-116) Creatine Kinase 52 U/L (26-192) Troponin I Quantitative < 0.017 ng/mL (0.000-0.055) UP-Gqi-N-Type Natriuretic Peptide 136 pg/mL (0-124) Total Protein 7.8 g/dL (6.4-8.2) Albumin 3.8 g/dL (3.4-5.0) Albumin/Globulin Ratio 1.0 (1.0-1.7) Triglycerides Level 104 mg/dL (0-150) Cholesterol Level 185 mg/dL (0-200) LDL Cholesterol, Calculated 107 mg/dL (0-100) VLDL Cholesterol, Calculated 21 mg/dL (0-40) Non-HDL Cholesterol Calculated 128 mg/dL (0-129) HDL Cholesterol 57 mg/dL (40-60) Cholesterol/HDL Ratio 3.2 Lipase 49 U/L (73-393) Urine Collection Type Unknown Urine Color Yellow Urine Clarity Clear Urine pH 5.5 Urine Specific [place] 1.025 Urine Protein Negative mg/dL (NEG-TRACE) Urine Glucose (UA) Negative mg/dL (NEG) Urine Ketones (Stick) Negative mg/dL (NEG) Urine Blood Negative (NEG) Urine Nitrite Negative (NEG) Urine Bilirubin Negative (NEG) Urine Urobilinogen Dipstick 1.0 mg/dL (0.2 mg/dL) Urine Leukocyte Esterase Negative (NEG) Urine RBC 0 /HPF (0-2) Urine WBC 1-4 /HPF (0-4) Urine Squamous Epithelial Cells Occ /LPF Urine Bacteria 0 /HPF (0-FEW) Urine Hyaline Casts Occasional /HPF Urine Mucus Mod /LPF O2 Saturation 91 % (92-99) 93 % (92-99) Arterial Blood pH 7.16 (7.35-7.45) 7.18 (7.35-7.45) Arterial Blood pCO2 at Patient Temp 76 mmHg (35-46) 82 mmHg (35-46) Arterial Blood pO2 at Patient Temp 86 mmHg (65-108) 81 mmHg (65-108) Arterial Blood HCO3 27 mmol/L (21-28) 30 mmol/L (21-28) Arterial Blood Base Excess -3 mmol/L (-3-3) 0 mmol/L (-3-3) FiO2 32 Test 07/13/18 12:00 07/13/18 15:18 07/13/18 17:20 07/13/18 18:14 Troponin I Quantitative < 0.017 ng/mL (0.000-0.055) < 0.017 ng/mL (0.000-0.055) O2 Saturation 95 % (92-99) Arterial Blood pH 7.27 (7.35-7.45) Arterial Blood pCO2 at Patient Temp 62 mmHg (35-46) Arterial Blood pO2 at Patient Temp 81 mmHg (65-108) Arterial Blood HCO3 28 mmol/L (21-28) Arterial Blood Base Excess 0 mmol/L (-3-3) FiO2 30% bipap Glucose (Fingerstick) 115 mg/dL (70-99) Test 07/13/18 20:35 07/14/18 03:35 07/14/18 08:00 07/14/18 08:14 Glucose (Fingerstick) 99 mg/dL (70-99) 82 mg/dL (70-99) White Blood Count 6.2 x10^3/uL (4.0-11.0) Red Blood Count 3.56 x10^6/uL (3.50-5.40) Hemoglobin 9.9 g/dL (12.0-15.5) Hematocrit 30.6 % (36.0-47.0) Mean Corpuscular Volume 86 fL (79-100) Mean Corpuscular Hemoglobin 28 pg (25-35) Mean Corpuscular Hemoglobin Concent 32 g/dL (31-37) Red Cell Distribution Width 16.7 % (11.5-14.5) Platelet Count 339 x10^3/uL (140-400) Neutrophils (%) (Auto) 84 % (31-73) Lymphocytes (%) (Auto) 7 % (24-48) Monocytes (%) (Auto) 9 % (0-9) Eosinophils (%) (Auto) 0 % (0-3) Basophils (%) (Auto) 0 % (0-3) Neutrophils # (Auto) 5.2 x10^3uL (1.8-7.7) Lymphocytes # (Auto) 0.4 x10^3/uL (1.0-4.8) Monocytes # (Auto) 0.5 x10^3/uL (0.0-1.1) Eosinophils # (Auto) 0.0 x10^3/uL (0.0-0.7) Basophils # (Auto) 0.0 x10^3/uL (0.0-0.2) Sodium Level 141 mmol/L (136-145) Potassium Level 4.0 mmol/L (3.5-5.1) Chloride Level 106 mmol/L (98-107) Carbon Dioxide Level 26 mmol/L (21-32) Anion Gap 9 (6-14) Blood Urea Nitrogen 18 mg/dL (7-20) Creatinine 0.8 mg/dL (0.6-1.0) Estimated GFR (Cockcroft-Gault) 72.9 BUN/Creatinine Ratio 23 (6-20) Glucose Level 108 mg/dL (70-99) Calcium Level 8.6 mg/dL (8.5-10.1) Total Bilirubin 0.4 mg/dL (0.2-1.0) Aspartate Amino Transf (AST/SGOT) 12 U/L (15-37) Alanine Aminotransferase (ALT/SGPT) 12 U/L (14-59) Alkaline Phosphatase 93 U/L (46-116) Total Protein 6.2 g/dL (6.4-8.2) Albumin 2.9 g/dL (3.4-5.0) Albumin/Globulin Ratio 0.9 (1.0-1.7) O2 Saturation 90 % (92-99) Arterial Blood pH 7.42 (7.35-7.45) Arterial Blood pCO2 at Patient Temp 32 mmHg (35-46) Arterial Blood pO2 at Patient Temp 56 mmHg (65-108) Arterial Blood HCO3 20 mmol/L (21-28) Arterial Blood Base Excess -4 mmol/L (-3-3) FiO2 21 Test 07/14/18 11:18 07/14/18 17:38 Glucose (Fingerstick) 113 mg/dL (70-99) 108 mg/dL (70-99) Laboratory Tests Test 07/13/18 20:35 07/14/18 03:35 07/14/18 08:00 07/14/18 08:14 Glucose (Fingerstick) 99 mg/dL (70-99) 82 mg/dL (70-99) White Blood Count 6.2 x10^3/uL (4.0-11.0) Red Blood Count 3.56 x10^6/uL (3.50-5.40) Hemoglobin 9.9 g/dL (12.0-15.5) Hematocrit 30.6 % (36.0-47.0) Mean Corpuscular Volume 86 fL (79-100) Mean Corpuscular Hemoglobin 28 pg (25-35) Mean Corpuscular Hemoglobin Concent 32 g/dL (31-37) Red Cell Distribution Width 16.7 % (11.5-14.5) Platelet Count 339 x10^3/uL (140-400) Neutrophils (%) (Auto) 84 % (31-73) Lymphocytes (%) (Auto) 7 % (24-48) Monocytes (%) (Auto) 9 % (0-9) Eosinophils (%) (Auto) 0 % (0-3) Basophils (%) (Auto) 0 % (0-3) Neutrophils # (Auto) 5.2 x10^3uL (1.8-7.7) Lymphocytes # (Auto) 0.4 x10^3/uL (1.0-4.8) Monocytes # (Auto) 0.5 x10^3/uL (0.0-1.1) Eosinophils # (Auto) 0.0 x10^3/uL (0.0-0.7) Basophils # (Auto) 0.0 x10^3/uL (0.0-0.2) Sodium Level 141 mmol/L (136-145) Potassium Level 4.0 mmol/L (3.5-5.1) Chloride Level 106 mmol/L (98-107) Carbon Dioxide Level 26 mmol/L (21-32) Anion Gap 9 (6-14) Blood Urea Nitrogen 18 mg/dL (7-20) Creatinine 0.8 mg/dL (0.6-1.0) Estimated GFR (Cockcroft-Gault) 72.9 BUN/Creatinine Ratio 23 (6-20) Glucose Level 108 mg/dL (70-99) Calcium Level 8.6 mg/dL (8.5-10.1) Total Bilirubin 0.4 mg/dL (0.2-1.0) Aspartate Amino Transf (AST/SGOT) 12 U/L (15-37) Alanine Aminotransferase (ALT/SGPT) 12 U/L (14-59) Alkaline Phosphatase 93 U/L (46-116) Total Protein 6.2 g/dL (6.4-8.2) Albumin 2.9 g/dL (3.4-5.0) Albumin/Globulin Ratio 0.9 (1.0-1.7) O2 Saturation 90 % (92-99) Arterial Blood pH 7.42 (7.35-7.45) Arterial Blood pCO2 at Patient Temp 32 mmHg (35-46) Arterial Blood pO2 at Patient Temp 56 mmHg (65-108) Arterial Blood HCO3 20 mmol/L (21-28) Arterial Blood Base Excess -4 mmol/L (-3-3) FiO2 21 Test 07/14/18 11:18 07/14/18 17:38 Glucose (Fingerstick) 113 mg/dL (70-99) 108 mg/dL (70-99) Microbiology 07/13/18 Blood Culture - Preliminary, Resulted NO GROWTH AFTER 1 DAY Medications Current Medications Sodium Chloride 1,000 ml @ 1,000 mls/hr Q1H IV Last administered on 07/13/18at 06:42; Start 07/13/18 at 06:45; Stop 07/13/18 at 07:44; Status DC Ondansetron HCl (Zofran) 4 mg 1X ONCE IV Last administered on 07/13/18at 06:41 ; Start 07/13/18 at 06:45; Stop 07/13/18 at 06:46; Status DC Albuterol/ Ipratropium (Duoneb) 3 ml 1X ONCE NEB Last administered on at 06:51; Start 07/13/18 at 06:45; Stop 07/13/18 at 06:46; Status DC Methylprednisolone Sodium Succinate (SOLU-Medrol 125MG VIAL) 125 mg 1X ONCE IV Last administered on 07/13/18 06:42; Start 07/13/18 at 06:45; Stop 07/13/18 at 06:46; Status DC Fentanyl Citrate (Fentanyl 2ml Vial) 25 mcg 1X ONCE IV ; Start 07/13/18 at 07: 00; Stop 07/13/18 at 07:01; Status DC Ceftriaxone Sodium (Rocephin) 1 gm 1X ONCE IVP Last administered on 07/13/18at 08:25; Start 07/13/18 at 08:00; Stop 07/13/18 at 08:01; Status DC Iohexol (Omnipaque 300 Mg/ml) 75 ml 1X ONCE IV Last administered on 07/13/18at 08:14; Start 07/13/18 at 08:00; Stop 07/13/18 at 08:01; Status DC Sodium Chloride 1,000 ml @ 150 mls/hr Q6H40M IV Last administered on at 02:45; Start 07/13/18 at 07:55; Stop 07/14/18 at 07:54; Status DC Lorazepam (Ativan) 0.5 mg PRN Q4HRS PRN IV ANXIETY / AGITATION Last administered on 07/13/18at 21:32; Start 07/13/18 at 08:00 Info (CONTRAST GIVEN -- Rx MONITORING) 1 each PRN DAILY PRN MC SEE COMMENTS; Start 07/13/18 at 08:00; Stop 07/15/18 at 07:59 Piperacillin Sod/ Tazobactam Sod 3.375 gm/Sodium Chloride 50 ml @ 100 mls/hr Q6HRS IV Last administered on 07/14/18 19:11; Start 07/13/18 at 12:00 Linezolid/Dextrose 300 ml @ 300 mls/hr Q12HR IV Last administered on 09:34; Start 07/13/18 at 12:00 Albuterol/ Ipratropium (Duoneb) 3 ml RTQID NEB Last administered on 07/14/18at 15:46; Start 07/13/18 at 16:00 Albuterol Sulfate (Ventolin Neb Soln) 2.5 mg PRN Q4HRS PRN NEB SHORTNESS OF BREATH; Start 07/13/18 at 13:45 Guaifenesin (Mucinex) 600 mg BID PO Last administered on 07/14/18at 09:33; Start 07/13/18 at 21:00 Losartan Potassium (Cozaar) 50 mg DAILY PO Last administered on 07/14/18at 09:33 ; Start 07/13/18 at 15:00 Simvastatin (Zocor) 10 mg HS PO Last administered on 07/13/18at 21:32; Start 01/21 at 21:00 Benzonatate (Tessalon Perle) 100 mg [id number] PO Last administered on 07/14/18at 14 :22; Start 07/13/18 at 15:00 Non-Formulary Medication (Budesonide/ Formoterol Fumarate (Symbicort 160-4.5 Mcg Inhaler)) 1 puff BID IH ; Start 07/13/18 at 21:00; Status UNV Vitamin D (Vitamin D3) 50,000 unit WEEKLY PO ; Start 07/20/18 at 09:00 Diltiazem HCl (Cardizem 24hr Cd) 120 mg DAILY PO Last administered on 09:33; Start 07/13/18 at 15:00 Montelukast Sodium (Singulair) 10 mg QHS PO Last administered on 07/13/18at 21: 32; Start 07/13/18 at 21:00 Ondansetron HCl (Zofran Odt) 4 mg PRN Q8HRS PRN PO NAUSEA/VOMITING; Start 07/13 at 14:00 Pantoprazole Sodium (Protonix) 40 mg DAILYAC PO Last administered on 07/14/18 09:33; Start 07/13/18 at 15:00 Budesonide (Pulmicort) 0.5 mg RTBID NEB Last administered on 07/14/18 08:00; Start 07/13/18 at 20:00 Clopidogrel Bisulfate (Plavix) 75 mg DAILY PO Last administered on 07/14/18 09 :33; Start 07/13/18 at 15:00 Propranolol HCl (Inderal) 10 mg DAILY PO Last administered on 07/14/18 11:04; Start 07/13/18 at 15:00 Magnesium Sulfate 50 ml @ 25 mls/hr 1X ONCE IV Last administered on 07/13/18 16:02; Start 07/13/18 at 15:30; Stop 07/13/18 at 17:29; Status DC Lactobacillus Rhamnosus (Culturelle) 1 cap BID PO ; Start 07/14/18 at 21:00 Active Scripts Active Augmentin 500-125 Tablet (Amoxicillin/Potassium Clav) 1 Each Tablet 1 Tab PO BID Metoclopramide Hcl 5 Mg Tablet 5 Mg PO PRN BFRMEALHC PRN Protonix (Pantoprazole Sodium) 40 Mg Granpkt.dr 40 Mg PO DAILY 30 Days Zofran (Ondansetron Hcl) 4 Mg Tablet 1 Tab PO Q8HRS PRN Reported Hydrocodone-Apap 7.5-325 (Hydrocodone Bit/Acetaminophen) 1 Tab Tablet 1 Tab PO PRN Q6HRS PRN Glimepiride 1 Mg Tablet 1 Mg PO DAILY Klor-Con 10 (Potassium Chloride) 10 Meq Tablet.er 10 Meq PO DAILY Furosemide 20 Mg Tablet 1 Tab PO DAILY Clopidogrel (Clopidogrel Bisulfate) 75 Mg Tablet 75 Mg PO DAILY Cyclobenzaprine Hcl 10 Mg Tablet 1 Tab PO BID Propranolol Hcl 10 Mg Tablet 10 Mg PO DAILY Benzonatate 100 Mg Capsule 1 Cap PO TID Albuterol Sulfate Neb Soln (Albuterol Sulfate) 2.5 Mg/3 Ml Vial.neb 1 Vial NEB BID Tizanidine Hcl 4 Mg Tablet 1 Tab PO BID Albuterol Sulfate Neb Soln (Albuterol Sulfate) 2.5 Mg/3 Ml Vial.neb 1 Vial NEB PRN Q4HRS Mucinex (Guaifenesin) 600 Mg Tablet.er 1 Tab PO BID Symbicort 160-4.5 Mcg Inhaler (Budesonide/Formoterol Fumarate) 10.2 Gm Hfa.aer.ad 1 Puff IH BID Vitamin D (Cholecalciferol (Vitamin D3)) 50,000 Unit Capsule 50,000 Unit PO WEEKLY Ditropan Xl (Oxybutynin Chloride) 5 Mg Tab.er.24 5 Mg PO DAILY Losartan Potassium 50 Mg Tablet 50 Mg PO DAILY Simvastatin 10 Mg Tablet 10 Mg PO HS Proair Hfa Inhaler (Albuterol Sulfate) 8.5 Gm Hfa.aer.ad 17 Gm IH Q4HRS W/A PRN Spiriva (Tiotropium [place]) 18 Mcg Cap.w.dev 18 Mcg IH DAILY Singulair Tablet (Montelukast Sodium) 10 Mg Tablet 10 Mg PO HS Diltiazem 24HR Cd (Diltiazem Hcl) 120 Mg Cap.er.24h 120 Mg PO DAILY Vitals/I & O Vital Sign - Last 24 Hours 07/13/18 07/13/18 07/13/18 07/13/18 19:55 20:00 23:11 23:24 Temp 98.9 98.9 Pulse 100 Resp B/P (MAP) 118/72 (87) Pulse Ox 96 96 96 O2 Delivery BiPAP/CPAP Bi-pap BiPAP/CPAP BiPAP/CPAP 07/14/18 07/14/18 07/14/18 07/14/18 01:51 03:13 03:40 07:00 Temp 98.5 98.6 98.5 98.6 Pulse 101 97 Resp 26 26 B/P (MAP) 123/80 (94) 123/69 (87) Pulse Ox 96 96 96 100 O2 Delivery BiPAP/CPAP BiPAP/CPAP BiPAP/CPAP BiPAP/CPAP 07/14/18 07/14/18 07/14/18 07/14/18 08:00 08:02 09:33 09:33 Pulse 97 97 B/P (MAP) 123/69 123/69 Pulse Ox 96 O2 Delivery Bi-pap BiPAP/CPAP 07/14/18 07/14/18 07/14/18 07/14/18 11:00 11:04 11:43 15:00 Temp 98.4 97.9 98.4 97.9 Pulse 101 97 82 Resp 18 20 B/P (MAP) 128/81 (97) 128/81 125/77 (93) Pulse Ox 89 98 94 O2 Delivery Nasal Cannula Nasal Cannula Nasal Cannula O2 Flow Rate 1.0 1.0 1.0 07/14/18 15:46 Pulse Ox 90 O2 Delivery Nasal Cannula O2 Flow Rate 1.0 Intake and Output 07/13/18 07/13/18 07/14/18 15:00 23:00 07:00 Intake Total 1000 ml 100 ml Output Total 350 ml Balance 1000 ml -250 ml DAVID TEMPLETON MD Jul 14, 2018 19:42
[2018-07-14 19:50] VITALS: BP 119/71
[2018-07-14] MEDS: SIMVASTATIN 10 MG TABLET PO SCH (20:40)
[2018-07-14] MEDS: MONTELUKAST SODIUM 10 MG TABLET. PO SCH (20:40)
[2018-07-14] MEDS: LACTOBACILLUS RHAMNOSUS GG 1 CAPSULE. PO SCH (20:40)
[2018-07-14 22:55] VITALS: BP 121/78
[2018-07-15 02:20] VITALS: BP 143/94
[2018-07-15] MEDS: PIPERACILLIN/TAZOBACTAM 3.375 GM in IV NORMAL SALINE 50ML 50 ML IV SCH (06:34)
[2018-07-15 07:00] VITALS: BP 138/92
[2018-07-15] MEDS: BUDESONIDE 0.5 MG/2 ML NEBU. NEB SCH (07:33)
[2018-07-15] MEDS: IPRATRPIUM/ALBUTEROL 0.5/2.5MG 3 ML NEBU. NEB SCH ×2 (07:37→11:29)
--- NOTE | 2018-07-15 08:29 | PDOC ---
PROGRESS NOTES Chief Complaint Chief Complaint 1. airspace consolidation within the left lung base likely pulmonary infiltrate 2. Chronic airspace consolidation in the medial right lower lobe may reflect atelectasis, scarring or pulmonary infiltrate. 3. Simple appearing hepatic cysts. No new or suspicious hepatic lesions are identified. 4. chest pain pleuritic in nature, unlikely cardiac in nature 5. COPD, ie restrictive lung disease, severe 6. Morbid obesity 7. severe hypercapnic resp failure with severe resp acidosis and hypoxic resp failure 8. Aspiration pneumonia 9. DM 10.CHF 11.N/V intractable 12. severe scoliosis plan continue empiric iv antibiotics follow blood cult demand ischemia most likely etiology of elevated troponin BIPAP SUPPORT ID CONSULT appreciated symptomatic relief of symptoms dvt prophylaxis reassess in the am History of Present Illness History of Present Illness Wore BIPAP for 5 hours last night. States she is waiting for home sleep study. Her administers everything, changed to oral antibiotics per ID. She really wishes for discharge. Not currently on any O2, saturations > 88%. patient lying in bed in no apparent distress, no fever or chills no acute events reported overnight. Vitals Vitals Vital Signs Date Time Temp Pulse Resp B/P (MAP) Pulse Ox O2 Delivery O2 Flow Rate FiO2 07/15/18 07:38 98 Nasal Cannula 1.0 07/15/18 07:00 97.7 93 18 138/92 (107) 97.7 Physical Exam Physical Exam GENERAL: Alert, awake oriented in person and situation, no acute distress. HEENT: NAD. atraumatic, peerla eomi NECK: Supple, no JVP, no lymphadenopathy. LUNGS: Bilateral diffuse rhonchi present. No crackles. HEART: S1, S2 regular. No gallop or murmur. ABDOMEN: Soft, nontender, no organomegaly. EXTREMITIES: No edema or cyanosis. SKIN: Unremarkable. NEUROLOGIC: Alert, cn 2 to 12 intact no focal neurological deficits. General: No acute distress, Other (drowsy) Heart: Other (tele ST, distant heart tones) Lungs: Crackles Abdomen: Soft Extremities: No edema, Normal pulses Skin: No significant lesion Labs LABS Laboratory Tests Test 07/14/18 11:18 07/14/18 17:38 07/14/18 21:05 07/15/18 07:25 Glucose (Fingerstick) 113 mg/dL (70-99) 108 mg/dL (70-99) 113 mg/dL (70-99) 76 mg/dL (70-99) Assessment and Plan Assessmemt and Plan Problems Medical Problems: (1) Acute chest pain Status: Acute (2) Acute respiratory acidosis Status: Acute (3) CO2 narcosis Status: Acute (4) Hypoxia Status: Acute Comment Review of Relevant I have reviewed the following items jose angel (where applicable) has been applied. Labs Laboratory Tests Test 07/13/18 11:25 07/13/18 12:00 07/13/18 15:18 07/13/18 17:20 O2 Saturation 93 % (92-99) 95 % (92-99) Arterial Blood pH 7.18 (7.35-7.45) 7.27 (7.35-7.45) Arterial Blood pCO2 at Patient Temp 82 mmHg (35-46) 62 mmHg (35-46) Arterial Blood pO2 at Patient Temp 81 mmHg (65-108) 81 mmHg (65-108) Arterial Blood HCO3 30 mmol/L (21-28) 28 mmol/L (21-28) Arterial Blood Base Excess 0 mmol/L (-3-3) 0 mmol/L (-3-3) Troponin I Quantitative < 0.017 ng/mL (0.000-0.055) FiO2 30% bipap Glucose (Fingerstick) 115 mg/dL (70-99) Test 07/13/18 18:14 07/13/18 20:35 07/14/18 03:35 07/14/18 08:00 Troponin I Quantitative < 0.017 ng/mL (0.000-0.055) Glucose (Fingerstick) 99 mg/dL (70-99) White Blood Count 6.2 x10^3/uL (4.0-11.0) Red Blood Count 3.56 x10^6/uL (3.50-5.40) Hemoglobin 9.9 g/dL (12.0-15.5) Hematocrit 30.6 % (36.0-47.0) Mean Corpuscular Volume 86 fL (79-100) Mean Corpuscular Hemoglobin 28 pg (25-35) Mean Corpuscular Hemoglobin Concent 32 g/dL (31-37) Red Cell Distribution Width 16.7 % (11.5-14.5) Platelet Count 339 x10^3/uL (140-400) Neutrophils (%) (Auto) 84 % (31-73) Lymphocytes (%) (Auto) 7 % (24-48) Monocytes (%) (Auto) 9 % (0-9) Eosinophils (%) (Auto) 0 % (0-3) Basophils (%) (Auto) 0 % (0-3) Neutrophils # (Auto) 5.2 x10^3uL (1.8-7.7) Lymphocytes # (Auto) 0.4 x10^3/uL (1.0-4.8) Monocytes # (Auto) 0.5 x10^3/uL (0.0-1.1) Eosinophils # (Auto) 0.0 x10^3/uL (0.0-0.7) Basophils # (Auto) 0.0 x10^3/uL (0.0-0.2) Sodium Level 141 mmol/L (136-145) Potassium Level 4.0 mmol/L (3.5-5.1) Chloride Level 106 mmol/L (98-107) Carbon Dioxide Level 26 mmol/L (21-32) Anion Gap 9 (6-14) Blood Urea Nitrogen 18 mg/dL (7-20) Creatinine 0.8 mg/dL (0.6-1.0) Estimated GFR (Cockcroft-Gault) 72.9 BUN/Creatinine Ratio 23 (6-20) Glucose Level 108 mg/dL (70-99) Calcium Level 8.6 mg/dL (8.5-10.1) Total Bilirubin 0.4 mg/dL (0.2-1.0) Aspartate Amino Transf (AST/SGOT) 12 U/L (15-37) Alanine Aminotransferase (ALT/SGPT) 12 U/L (14-59) Alkaline Phosphatase 93 U/L (46-116) Total Protein 6.2 g/dL (6.4-8.2) Albumin 2.9 g/dL (3.4-5.0) Albumin/Globulin Ratio 0.9 (1.0-1.7) O2 Saturation 90 % (92-99) Arterial Blood pH 7.42 (7.35-7.45) Arterial Blood pCO2 at Patient Temp 32 mmHg (35-46) Arterial Blood pO2 at Patient Temp 56 mmHg (65-108) Arterial Blood HCO3 20 mmol/L (21-28) Arterial Blood Base Excess -4 mmol/L (-3-3) FiO2 21 Test 07/14/18 08:14 07/14/18 11:18 07/14/18 17:38 07/14/18 21:05 Glucose (Fingerstick) 82 mg/dL (70-99) 113 mg/dL (70-99) 108 mg/dL (70-99) 113 mg/dL (70-99) Test 07/15/18 07:25 Glucose (Fingerstick) 76 mg/dL (70-99) Laboratory Tests Test 07/14/18 11:18 07/14/18 17:38 07/14/18 21:05 07/15/18 07:25 Glucose (Fingerstick) 113 mg/dL (70-99) 108 mg/dL (70-99) 113 mg/dL (70-99) 76 mg/dL (70-99) Microbiology 07/13/18 Blood Culture - Preliminary, Resulted NO GROWTH AFTER 2 DAYS Medications Current Medications Sodium Chloride 1,000 ml @ 1,000 mls/hr Q1H IV Last administered on 07/13/18at 06:42; Start 07/13/18 at 06:45; Stop 07/13/18 at 07:44; Status DC Ondansetron HCl (Zofran) 4 mg 1X ONCE IV Last administered on 07/13/18at 06:41 ; Start 07/13/18 at 06:45; Stop 07/13/18 at 06:46; Status DC Albuterol/ Ipratropium (Duoneb) 3 ml 1X ONCE NEB Last administered on at 06:51; Start 07/13/18 at 06:45; Stop 07/13/18 at 06:46; Status DC Methylprednisolone Sodium Succinate (SOLU-Medrol 125MG VIAL) 125 mg 1X ONCE IV Last administered on 07/13/18at 06:42; Start 07/13/18 at 06:45; Stop 07/13/18 at 06:46; Status DC Fentanyl Citrate (Fentanyl 2ml Vial) 25 mcg 1X ONCE IV ; Start 07/13/18 at 07: 00; Stop 07/13/18 at 07:01; Status DC Ceftriaxone Sodium (Rocephin) 1 gm 1X ONCE IVP Last administered on 07/13/18at 08:25; Start 07/13/18 at 08:00; Stop 07/13/18 at 08:01; Status DC Iohexol (Omnipaque 300 Mg/ml) 75 ml 1X ONCE IV Last administered on 07/13/18at 08:14; Start 07/13/18 at 08:00; Stop 07/13/18 at 08:01; Status DC Sodium Chloride 1,000 ml @ 150 mls/hr Q6H40M IV Last administered on at 02:45; Start 07/13/18 at 07:55; Stop 07/14/18 at 07:54; Status DC Lorazepam (Ativan) 0.5 mg PRN Q4HRS PRN IV ANXIETY / AGITATION Last administered on 07/15/18at 01:40; Start 07/13/18 at 08:00 Info (CONTRAST GIVEN -- Rx MONITORING) 1 each PRN DAILY PRN MC SEE COMMENTS; Start 07/13/18 at 08:00; Stop 07/15/18 at 07:59; Status DC Piperacillin Sod/ Tazobactam Sod 3.375 gm/Sodium Chloride 50 ml @ 100 mls/hr Q6HRS IV Last administered on 07/15/18 06:34; Start 07/13/18 at 12:00 Linezolid/Dextrose 300 ml @ 300 mls/hr Q12HR IV Last administered on at 20:40; Start 07/13/18 at 12:00 Albuterol/ Ipratropium (Duoneb) 3 ml RTQID NEB Last administered on 07/15/18at 07:37; Start 07/13/18 at 16:00 Albuterol Sulfate (Ventolin Neb Soln) 2.5 mg PRN Q4HRS PRN NEB SHORTNESS OF BREATH; Start 07/13/18 at 13:45 Guaifenesin (Mucinex) 600 mg BID PO Last administered on 07/14/18 20:40; Start 07/13/18 at 21:00 Losartan Potassium (Cozaar) 50 mg DAILY PO Last administered on 07/14/18at 09:33 ; Start 07/13/18 at 15:00 Simvastatin (Zocor) 10 mg HS PO Last administered on 07/14/18at 20:40; Start 01/21 at 21:00 Benzonatate (Tessalon Perle) 100 mg [id number] PO Last administered on 07/14/18 20 :40; Start 07/13/18 at 15:00 Non-Formulary Medication (Budesonide/ Formoterol Fumarate (Symbicort 160-4.5 Mcg Inhaler)) 1 puff BID IH ; Start 07/13/18 at 21:00; Status UNV Vitamin D (Vitamin D3) 50,000 unit WEEKLY PO ; Start 07/20/18 at 09:00 Diltiazem HCl (Cardizem 24hr Cd) 120 mg DAILY PO Last administered on 09:33; Start 07/13/18 at 15:00 Montelukast Sodium (Singulair) 10 mg QHS PO Last administered on 07/14/18 20: 40; Start 07/13/18 at 21:00 Ondansetron HCl (Zofran Odt) 4 mg PRN Q8HRS PRN PO NAUSEA/VOMITING; Start 07/13 at 14:00 Pantoprazole Sodium (Protonix) 40 mg DAILYAC PO Last administered on 07/14/18 09:33; Start 07/13/18 at 15:00 Budesonide (Pulmicort) 0.5 mg RTBID NEB Last administered on 07/15/18 07:33; Start 07/13/18 at 20:00 Clopidogrel Bisulfate (Plavix) 75 mg DAILY PO Last administered on 07/14/18 09 :33; Start 07/13/18 at 15:00 Propranolol HCl (Inderal) 10 mg DAILY PO Last administered on 07/14/18 11:04; Start 07/13/18 at 15:00 Magnesium Sulfate 50 ml @ 25 mls/hr 1X ONCE IV Last administered on 07/13/18 16:02; Start 07/13/18 at 15:30; Stop 07/13/18 at 17:29; Status DC Lactobacillus Rhamnosus (Culturelle) 1 cap BID PO Last administered on 20:40; Start 07/14/18 at 21:00 Active Scripts Active Augmentin 500-125 Tablet (Amoxicillin/Potassium Clav) 1 Each Tablet 1 Tab PO BID Metoclopramide Hcl 5 Mg Tablet 5 Mg PO PRN BFRMEALHC PRN Protonix (Pantoprazole Sodium) 40 Mg Granpkt.dr 40 Mg PO DAILY 30 Days Zofran (Ondansetron Hcl) 4 Mg Tablet 1 Tab PO Q8HRS PRN Reported Hydrocodone-Apap 7.5-325 (Hydrocodone Bit/Acetaminophen) 1 Tab Tablet 1 Tab PO PRN Q6HRS PRN Glimepiride 1 Mg Tablet 1 Mg PO DAILY Klor-Con 10 (Potassium Chloride) 10 Meq Tablet.er 10 Meq PO DAILY Furosemide 20 Mg Tablet 1 Tab PO DAILY Clopidogrel (Clopidogrel Bisulfate) 75 Mg Tablet 75 Mg PO DAILY Cyclobenzaprine Hcl 10 Mg Tablet 1 Tab PO BID Propranolol Hcl 10 Mg Tablet 10 Mg PO DAILY Benzonatate 100 Mg Capsule 1 Cap PO TID Albuterol Sulfate Neb Soln (Albuterol Sulfate) 2.5 Mg/3 Ml Vial.neb 1 Vial NEB BID Tizanidine Hcl 4 Mg Tablet 1 Tab PO BID Albuterol Sulfate Neb Soln (Albuterol Sulfate) 2.5 Mg/3 Ml Vial.neb 1 Vial NEB PRN Q4HRS Mucinex (Guaifenesin) 600 Mg Tablet.er 1 Tab PO BID Symbicort 160-4.5 Mcg Inhaler (Budesonide/Formoterol Fumarate) 10.2 Gm Hfa.aer.ad 1 Puff IH BID Vitamin D (Cholecalciferol (Vitamin D3)) 50,000 Unit Capsule 50,000 Unit PO WEEKLY Ditropan Xl (Oxybutynin Chloride) 5 Mg Tab.er.24 5 Mg PO DAILY Losartan Potassium 50 Mg Tablet 50 Mg PO DAILY Simvastatin 10 Mg Tablet 10 Mg PO HS Proair Hfa Inhaler (Albuterol Sulfate) 8.5 Gm Hfa.aer.ad 17 Gm IH Q4HRS W/A PRN Spiriva (Tiotropium [place]) 18 Mcg Cap.w.dev 18 Mcg IH DAILY Singulair Tablet (Montelukast Sodium) 10 Mg Tablet 10 Mg PO HS Diltiazem 24HR Cd (Diltiazem Hcl) 120 Mg Cap.er.24h 120 Mg PO DAILY Vitals/I & O Vital Sign - Last 24 Hours 07/14/18 07/14/18 07/14/18 07/14/18 09:33 09:33 11:00 11:04 Temp 98.4 98.4 Pulse 97 97 101 97 Resp 18 B/P (MAP) 123/69 123/69 128/81 (97) 128/81 Pulse Ox 89 O2 Delivery Nasal Cannula O2 Flow Rate 1.0 07/14/18 07/14/18 07/14/18 07/14/18 11:43 15:00 15:46 19:45 Temp 97.9 97.9 Pulse 82 Resp 20 B/P (MAP) 125/77 (93) Pulse Ox 98 94 90 O2 Delivery Nasal Cannula Nasal Cannula Nasal Cannula Nasal Cannula O2 Flow Rate 1.0 1.0 1.0 1.0 07/14/18 07/14/18 07/14/18 07/14/18 19:50 20:18 22:50 22:55 Temp 97.6 97.7 97.6 97.7 Pulse 89 84 Resp 20 18 B/P (MAP) 119/71 (87) 121/78 (92) Pulse Ox 96 96 96 97 O2 Delivery Nasal Cannula Nasal Cannula BiPAP/CPAP Nasal Cannula O2 Flow Rate 1.0 1.0 2.0 07/14/18 07/15/18 07/15/18 07/15/18 23:26 02:20 02:35 07:00 Temp 98.0 97.7 98.0 97.7 Pulse 86 93 Resp 18 18 B/P (MAP) 143/94 (110) 138/92 (107) Pulse Ox 99 96 97 O2 Delivery BiPAP/CPAP BiPAP/CPAP Nasal Cannula O2 Flow Rate 2.0 1.0 07/15/18 07:38 Pulse Ox 98 O2 Delivery Nasal Cannula O2 Flow Rate 1.0 NABIL SCHERER MD Jul 15, 2018 08:29
[2018-07-15] MEDS: PANTOPRAZOLE 40 MG TABLET.DR. PO SCH (08:34)
[2018-07-15] MEDS: LACTOBACILLUS RHAMNOSUS GG 1 CAPSULE. PO SCH (08:34)
[2018-07-15] MEDS: CLOPIDOGREL BISULFATE 75 MG TABLET PO SCH (08:34)
[2018-07-15] MEDS: BENZONATATE 100 MG CAPSULE. PO SCH (08:35)
[2018-07-15] MEDS: LOSARTAN POTASSIUM 50 MG TABLET. PO SCH (08:35)
[2018-07-15 08:36] VITALS: BP 138/92
[2018-07-15] MEDS: PROPRANOLOL 10 MG TABLET. PO SCH (08:36)
--- NOTE | 2018-07-15 08:38 | PDOC ---
PULMONARY PROGRESS NOTES Subjective on , used bipap last night, sob, cough better. not on home 02 Vitals Vital Signs Date Time Temp Pulse Resp B/P (MAP) Pulse Ox O2 Delivery O2 Flow Rate FiO2 07/15/18 07:38 98 Nasal Cannula 1.0 07/15/18 07:00 97.7 93 18 138/92 (107) 97.7 ROS: No Nausea General: Alert, No acute distress HEENT: Other (nc at perrl ) Lungs: Crackles Cardiovascular: S1, S2 Abdomen: Soft, Non-tender Neuro Exam: Alert Extremities: No Edema Labs Laboratory Tests Test 07/13/18 11:25 07/13/18 12:00 07/13/18 15:18 07/13/18 17:20 O2 Saturation 93 % (92-99) 95 % (92-99) Arterial Blood pH 7.18 (7.35-7.45) 7.27 (7.35-7.45) Arterial Blood pCO2 at Patient Temp 82 mmHg (35-46) 62 mmHg (35-46) Arterial Blood pO2 at Patient Temp 81 mmHg (65-108) 81 mmHg (65-108) Arterial Blood HCO3 30 mmol/L (21-28) 28 mmol/L (21-28) Arterial Blood Base Excess 0 mmol/L (-3-3) 0 mmol/L (-3-3) Troponin I Quantitative < 0.017 ng/mL (0.000-0.055) FiO2 30% bipap Glucose (Fingerstick) 115 mg/dL (70-99) Test 07/13/18 18:14 07/13/18 20:35 07/14/18 03:35 07/14/18 08:00 Troponin I Quantitative < 0.017 ng/mL (0.000-0.055) Glucose (Fingerstick) 99 mg/dL (70-99) White Blood Count 6.2 x10^3/uL (4.0-11.0) Red Blood Count 3.56 x10^6/uL (3.50-5.40) Hemoglobin 9.9 g/dL (12.0-15.5) Hematocrit 30.6 % (36.0-47.0) Mean Corpuscular Volume 86 fL (79-100) Mean Corpuscular Hemoglobin 28 pg (25-35) Mean Corpuscular Hemoglobin Concent 32 g/dL (31-37) Red Cell Distribution Width 16.7 % (11.5-14.5) Platelet Count 339 x10^3/uL (140-400) Neutrophils (%) (Auto) 84 % (31-73) Lymphocytes (%) (Auto) 7 % (24-48) Monocytes (%) (Auto) 9 % (0-9) Eosinophils (%) (Auto) 0 % (0-3) Basophils (%) (Auto) 0 % (0-3) Neutrophils # (Auto) 5.2 x10^3uL (1.8-7.7) Lymphocytes # (Auto) 0.4 x10^3/uL (1.0-4.8) Monocytes # (Auto) 0.5 x10^3/uL (0.0-1.1) Eosinophils # (Auto) 0.0 x10^3/uL (0.0-0.7) Basophils # (Auto) 0.0 x10^3/uL (0.0-0.2) Sodium Level 141 mmol/L (136-145) Potassium Level 4.0 mmol/L (3.5-5.1) Chloride Level 106 mmol/L (98-107) Carbon Dioxide Level 26 mmol/L (21-32) Anion Gap 9 (6-14) Blood Urea Nitrogen 18 mg/dL (7-20) Creatinine 0.8 mg/dL (0.6-1.0) Estimated GFR (Cockcroft-Gault) 72.9 BUN/Creatinine Ratio 23 (6-20) Glucose Level 108 mg/dL (70-99) Calcium Level 8.6 mg/dL (8.5-10.1) Total Bilirubin 0.4 mg/dL (0.2-1.0) Aspartate Amino Transf (AST/SGOT) 12 U/L (15-37) Alanine Aminotransferase (ALT/SGPT) 12 U/L (14-59) Alkaline Phosphatase 93 U/L (46-116) Total Protein 6.2 g/dL (6.4-8.2) Albumin 2.9 g/dL (3.4-5.0) Albumin/Globulin Ratio 0.9 (1.0-1.7) O2 Saturation 90 % (92-99) Arterial Blood pH 7.42 (7.35-7.45) Arterial Blood pCO2 at Patient Temp 32 mmHg (35-46) Arterial Blood pO2 at Patient Temp 56 mmHg (65-108) Arterial Blood HCO3 20 mmol/L (21-28) Arterial Blood Base Excess -4 mmol/L (-3-3) FiO2 21 Test 07/14/18 08:14 07/14/18 11:18 07/14/18 17:38 07/14/18 21:05 Glucose (Fingerstick) 82 mg/dL (70-99) 113 mg/dL (70-99) 108 mg/dL (70-99) 113 mg/dL (70-99) Test 07/15/18 07:25 Glucose (Fingerstick) 76 mg/dL (70-99) Laboratory Tests Test 07/14/18 11:18 07/14/18 17:38 07/14/18 21:05 07/15/18 07:25 Glucose (Fingerstick) 113 mg/dL (70-99) 108 mg/dL (70-99) 113 mg/dL (70-99) 76 mg/dL (70-99) Medications Active Scripts Medications Dose Route/Sig Max Daily Dose Days Date Category Hydrocodone-Apap 7.5-325 (Hydrocodone Bit/Acetaminophen) 1 Tab Tablet 1 Tab PO PRN Q6HRS PRN 07/13/18 Reported Glimepiride 1 Mg Tablet 1 Mg PO DAILY 07/13/18 Reported Klor-Con 10 (Potassium Chloride) 10 Meq Tablet.er 10 Meq PO DAILY 07/13/18 Reported Furosemide 20 Mg Tablet 1 Tab PO DAILY 07/13/18 Reported Clopidogrel (Clopidogrel Bisulfate) 75 Mg Tablet 75 Mg PO DAILY 07/13/18 Reported Cyclobenzaprine Hcl 10 Mg Tablet 1 Tab PO BID 07/13/18 Reported Propranolol Hcl 10 Mg Tablet 10 Mg PO DAILY 07/13/18 Reported Augmentin 500-125 Tablet (Amoxicillin/Potassium Clav) 1 Each Tablet 1 Tab PO BID 06/16/18 Rx Metoclopramide Hcl 5 Mg Tablet 5 Mg PO PRN BFRMEALHC PRN 01/24/18 Rx Protonix (Pantoprazole Sodium) 40 Mg Granpkt.dr 40 Mg PO DAILY 30 01/24/18 Rx Benzonatate 100 Mg Capsule 1 Cap PO TID 10/23/17 Reported Albuterol Sulfate Neb Soln (Albuterol Sulfate) 2.5 Mg/3 Ml Vial.neb 1 Vial NEB BID 08/11/17 Reported Tizanidine Hcl 4 Mg Tablet 1 Tab PO BID 08/11/17 Reported Albuterol Sulfate Neb Soln (Albuterol Sulfate) 2.5 Mg/3 Ml Vial.neb 1 Vial NEB PRN Q4HRS 03/24/17 Reported Mucinex (Guaifenesin) 600 Mg Tablet.er 1 Tab PO BID 08/16/16 Reported Symbicort 160-4.5 Mcg Inhaler (Budesonide/Formoterol Fumarate) 10.2 Gm Hfa.aer.ad 1 Puff IH BID 08/16/16 Reported Vitamin D (Cholecalciferol (Vitamin D3)) 50,000 Unit Capsule 50,000 Unit PO WEEKLY 08/16/16 Reported Ditropan Xl (Oxybutynin Chloride) 5 Mg Tab.er.24 5 Mg PO DAILY 08/16/16 Reported Losartan Potassium 50 Mg Tablet 50 Mg PO DAILY 08/16/16 Reported Simvastatin 10 Mg Tablet 10 Mg PO HS 08/16/16 Reported Zofran (Ondansetron Hcl) 4 Mg Tablet 1 Tab PO Q8HRS PRN 10/26/15 Rx Proair Hfa Inhaler (Albuterol Sulfate) 8.5 Gm Hfa.aer.ad 17 Gm IH Q4HRS W/A PRN 07/23/13 Reported Spiriva (Tiotropium [place]) 18 Mcg Cap.w.dev 18 Mcg IH DAILY 07/23/13 Reported Singulair Tablet (Montelukast Sodium) 10 Mg Tablet 10 Mg PO HS 07/23/13 Reported Diltiazem 24HR Cd (Diltiazem Hcl) 120 Mg Cap.er.24h 120 Mg PO DAILY 07/23/13 Reported Impression . IMPRESSION: 1. [id number] hypercapnic respiratory failure secondary to chronic obstructive pulmonary disease exacerbation and suspected new left lower lobe pneumonia. 2. Nausea, vomiting present on admission. CT abdomen and pelvis with no acute abdominal pathology. 3. Underlying chronic and underlying severe restrictive lung disease secondary to severe scoliosis. 4. Abnormal CT chest with left lower lobe pneumonia and chronic right middle lobe atelectasis. Plan . RECOMMENDATIONS: 1. BiPAP prn, setting reviewed, 02 titration 2. avoid over sedation 3. Bronchodilators. 4. off steroids. 5. Continue antibiotics. per id 6. Follow GI recommendations. 7. increase activity Discussed with RN, pt. RODRIGO JONES MD Jul 15, 2018 08:37
--- NOTE | 2018-07-15 10:26 | PDOC ---
Infectious Disease Note Subjective Subjective pt is feeling good, no bipap, not even on o2 ROS ROS no n/v/d/sob/fever Vital Sign Vital Signs Vital Signs Date Time Temp Pulse Resp B/P (MAP) Pulse Ox O2 Delivery O2 Flow Rate FiO2 07/15/18 08:36 93 138/92 07/15/18 08:00 Nasal Cannula 1.0 07/15/18 07:38 98 07/15/18 07:00 97.7 18 97.7 Physical Exam PHYSICAL EXAM GENERAL: Alert, awake oriented in person and situation, no acute distress. HEENT: NAD. atraumatic, peerla eomi NECK: Supple, no JVP, no lymphadenopathy. LUNGS: Bilateral diffuse rhonchi present. No crackles. HEART: S1, S2 regular. No gallop or murmur. ABDOMEN: Soft, nontender, no organomegaly. EXTREMITIES: No edema or cyanosis. SKIN: Unremarkable. NEUROLOGIC: Alert, cn 2 to 12 intact no focal neurological deficits. Labs Lab Laboratory Tests Test 07/14/18 11:18 07/14/18 17:38 07/14/18 21:05 07/15/18 07:25 Glucose (Fingerstick) 113 mg/dL (70-99) 108 mg/dL (70-99) 113 mg/dL (70-99) 76 mg/dL (70-99) Micro Microbiology 07/13/18 Blood Culture - Preliminary, Resulted NO GROWTH AFTER 1 DAY Objective Assessment Aspiration pneumonia COPD Hypoxia Hypercarbic respiratory failure DM CHF N/V Plan Plan of Care zosyn and zyvox,,, change to po augmentin for 7 days supportive care check cultures d/c ok from ID stand point BENI VICENTE MD Jul 15, 2018 10:26
[2018-07-15] MEDS ORDERED: AMOX1TAB58 PO (12:00)
[2018-07-15] MEDS ORDERED: LACT1CAP19 PO (12:00)
[2018-07-15] MEDS ORDERED: PRED20TA PO (12:00)
--- NOTE | 2018-07-15 12:06 | PDOC3 ---
Discharge Summary Visit Information Date of Admission: Jul 13, 2018 Date of Discharge: Jul 15, 2018 Admitting Diagnosis: Pneumonia, COPD exacerbation Final Diagnosis Problems Medical Problems: (1) Acute chest pain Status: Acute (2) Acute respiratory acidosis Status: Acute (3) CO2 narcosis Status: Acute (4) Hypoxia Status: Acute Brief Hospital Course Allergies Allergies Coded Allergies Type Severity Reaction Last Updated Verified aspirin Allergy Intermediate 06/13/18 Yes Vital Signs Vital Signs Date Time Temp Pulse Resp B/P (MAP) Pulse Ox O2 Delivery O2 Flow Rate FiO2 07/15/18 11:30 Room Air 07/15/18 08:36 93 138/92 07/15/18 08:00 1.0 07/15/18 07:38 98 07/15/18 07:00 97.7 18 97.7 Lab Results Laboratory Tests Test 07/13/18 15:18 07/13/18 17:20 07/13/18 18:14 07/13/18 20:35 O2 Saturation 95 % (92-99) Arterial Blood pH 7.27 (7.35-7.45) Arterial Blood pCO2 at Patient Temp 62 mmHg (35-46) Arterial Blood pO2 at Patient Temp 81 mmHg (65-108) Arterial Blood HCO3 28 mmol/L (21-28) Arterial Blood Base Excess 0 mmol/L (-3-3) FiO2 30% bipap Glucose (Fingerstick) 115 mg/dL (70-99) 99 mg/dL (70-99) Troponin I Quantitative < 0.017 ng/mL (0.000-0.055) Test 07/14/18 03:35 07/14/18 08:00 07/14/18 08:14 07/14/18 11:18 White Blood Count 6.2 x10^3/uL (4.0-11.0) Red Blood Count 3.56 x10^6/uL (3.50-5.40) Hemoglobin 9.9 g/dL (12.0-15.5) Hematocrit 30.6 % (36.0-47.0) Mean Corpuscular Volume 86 fL (79-100) Mean Corpuscular Hemoglobin 28 pg (25-35) Mean Corpuscular Hemoglobin Concent 32 g/dL (31-37) Red Cell Distribution Width 16.7 % (11.5-14.5) Platelet Count 339 x10^3/uL (140-400) Neutrophils (%) (Auto) 84 % (31-73) Lymphocytes (%) (Auto) 7 % (24-48) Monocytes (%) (Auto) 9 % (0-9) Eosinophils (%) (Auto) 0 % (0-3) Basophils (%) (Auto) 0 % (0-3) Neutrophils # (Auto) 5.2 x10^3uL (1.8-7.7) Lymphocytes # (Auto) 0.4 x10^3/uL (1.0-4.8) Monocytes # (Auto) 0.5 x10^3/uL (0.0-1.1) Eosinophils # (Auto) 0.0 x10^3/uL (0.0-0.7) Basophils # (Auto) 0.0 x10^3/uL (0.0-0.2) Sodium Level 141 mmol/L (136-145) Potassium Level 4.0 mmol/L (3.5-5.1) Chloride Level 106 mmol/L (98-107) Carbon Dioxide Level 26 mmol/L (21-32) Anion Gap 9 (6-14) Blood Urea Nitrogen 18 mg/dL (7-20) Creatinine 0.8 mg/dL (0.6-1.0) Estimated GFR (Cockcroft-Gault) 72.9 BUN/Creatinine Ratio 23 (6-20) Glucose Level 108 mg/dL (70-99) Calcium Level 8.6 mg/dL (8.5-10.1) Total Bilirubin 0.4 mg/dL (0.2-1.0) Aspartate Amino Transf (AST/SGOT) 12 U/L (15-37) Alanine Aminotransferase (ALT/SGPT) 12 U/L (14-59) Alkaline Phosphatase 93 U/L (46-116) Total Protein 6.2 g/dL (6.4-8.2) Albumin 2.9 g/dL (3.4-5.0) Albumin/Globulin Ratio 0.9 (1.0-1.7) O2 Saturation 90 % (92-99) Arterial Blood pH 7.42 (7.35-7.45) Arterial Blood pCO2 at Patient Temp 32 mmHg (35-46) Arterial Blood pO2 at Patient Temp 56 mmHg (65-108) Arterial Blood HCO3 20 mmol/L (21-28) Arterial Blood Base Excess -4 mmol/L (-3-3) FiO2 21 Glucose (Fingerstick) 82 mg/dL (70-99) 113 mg/dL (70-99) Test 07/14/18 17:38 07/14/18 21:05 07/15/18 07:25 Glucose (Fingerstick) 108 mg/dL (70-99) 113 mg/dL (70-99) 76 mg/dL (70-99) Laboratory Tests Test 07/14/18 17:38 07/14/18 21:05 07/15/18 07:25 Glucose (Fingerstick) 108 mg/dL (70-99) 113 mg/dL (70-99) 76 mg/dL (70-99) Brief Hospital Course Ms Moncada is a 62yo F admitted for COPD exacerbation, hypoxia, and pneumonia, improved with prn BIPAP, nebs, antibiotics, seen by ID and pulmonology, downgraded to augmentin and steroids for d/c. Has plans for outpatient sleep study, already has seen pulm outpatient. patient lying in bed in no apparent distress, no fever or chills no acute events reported overnight. had normal O2 sats on room air, 92% for me 1. airspace consolidation within the left lung base likely pulmonary infiltrate 2. Chronic airspace consolidation in the medial right lower lobe may reflect atelectasis, scarring or pulmonary infiltrate. 3. Simple appearing hepatic cysts. No new or suspicious hepatic lesions are identified. 4. chest pain pleuritic in nature, unlikely cardiac in nature 5. COPD, ie restrictive lung disease, severe 6. Morbid obesity 7. severe hypercapnic resp failure with severe resp acidosis and hypoxic resp failure 8. Aspiration pneumonia 9. DM 10.CHF 11.N/V intractable 12. severe scoliosis Greater than 30 minutes spent on discharge to home with home health Discharge Information Condition at Discharge: Improved Follow Up: Weeks (2) Disposition/Orders: D/C to Home w/ HH Scheduled Albuterol Sulfate (Albuterol Sulfate Neb Soln) 2.5 Mg/3 Ml Vial.neb, 1 VIAL NEB PRN Q4HRS for asthma, #50 (Reported) Entered as Reported by: BILL GUTIERREZ on 03/24/172028 Last Action: HELD on 07/13/18 1412 by DANETTE MUNOZ Albuterol Sulfate (Albuterol Sulfate Neb Soln) 2.5 Mg/3 Ml Vial.neb, 1 VIAL NEB BID for asthma, #50 (Reported) Entered as Reported by: Dieter Patel on 08/11/17 0248 Last Action: Reviewed on 07/13/181400 by DANETTE MUNOZ Amoxicillin/Potassium Clav (Augmentin 500-125 Tablet) 1 Each Tablet, 1 TAB PO BID for pneumonia for 7 Days, #14 Prescribed by: NABIL SCHERER MD on 07/15/18 1200 Benzonatate (Benzonatate) 100 Mg Capsule, 1 CAP PO TID for cough, (Reported) Entered as Reported by: PETRA DELONG RN on 10/23/17 1101 Last Action: Reviewed on 07/13/181400 by DANETTE MUNOZ Budesonide/Formoterol Fumarate (Symbicort 160-4.5 Mcg Inhaler) 10.2 Gm Hfa.aer.ad, 1 PUFF IH BID for asthma, (Reported) Entered as Reported by: DANETTE MERCADO on 08/16/161658 Last Action: Reviewed on 07/13/181400 by DANETTE MUNOZ Cholecalciferol (Vitamin D3) (Vitamin D) 50,000 Unit Capsule, 50,000 UNIT PO WEEKLY for supplement, (Reported) Entered as Reported by: DANETTE MERCADO on 08/16/161658 Last Action: Reviewed on 07/13/181400 by DANETTE MUNOZ Clopidogrel Bisulfate (Clopidogrel) 75 Mg Tablet, 75 MG PO DAILY for TO PREVENT BLOOD CLOTS, #30 Ref 0 (Reported) Entered as Reported by: DANETTE MUNOZ on 07/13/181410 Last Action: Continued on 07/13/18 141 by DANETTE MUNOZ Diltiazem Hcl (Diltiazem 24HR Cd) 120 Mg Cap.er.24h, 120 MG PO DAILY for HTN, ( Reported) Entered as Reported by: Antwan Simmons on 07/23/13 175 Last Action: Reviewed on 07/13/181400 by DANETTE MUNOZ Furosemide (Furosemide) 20 Mg Tablet, 1 TAB PO DAILY for CHF, #90 Ref 1 ( Reported) Entered as Reported by: DANETTE MUNOZ on 07/13/18 141 Last Action: New Order on 07/13/181410 by DANETTE MUNOZ Glimepiride (Glimepiride) 1 Mg Tablet, 1 MG PO DAILY for Diabetes, (Reported) Entered as Reported by: DANETTE MUNOZ on 07/13/181410 Last Action: New Order on 07/13/181410 by DANETTE MUNOZ Guaifenesin (Mucinex) 600 Mg Tablet.er, 1 TAB PO BID for congestion, #20 ( Reported) Entered as Reported by: DANETTE MERCADO on 08/16/161658 Last Action: Reviewed on 07/13/181400 by DANETTE MUNOZ Lactobacillus Rhamnosus Gg (Culturelle) 1 Each Cap.sprink, 1 CAP PO BID for diarrhea for 7 Days, #14 Prescribed by: NABIL SCHERER MD on 07/15/18 1200 Losartan Potassium (Losartan Potassium) 50 Mg Tablet, 50 MG PO DAILY for HTN, ( Reported) Entered as Reported by: DANETTE MERCADO on 08/16/161651 Last Action: Reviewed on 07/13/181400 by DANETTE MUNOZ Montelukast Sodium (Singulair Tablet) 10 Mg Tablet, 10 MG PO HS for allergies, ( Reported) Entered as Reported by: Antwan Simmons on 07/23/13 175 Last Action: Reviewed on 07/13/181400 by DANETTE MUNOZ Oxybutynin Chloride (Ditropan Xl) 5 Mg Tab.er.24, 5 MG PO DAILY for bladder, ( Reported) Entered as Reported by: DANETTE MERCADO on 08/16/161658 Last Action: HELD on 07/13/181411 by DANETTE MUNOZ Pantoprazole Sodium (Protonix) 40 Mg Granpkt.dr, 40 MG PO DAILY for GERD for 30 Days, #30 Prescribed by: GARRY DUBON on 01/24/18 0835 Last Action: Reviewed on 07/13/181400 by DANETTE MUNOZ Potassium Chloride (Klor-Con 10) 10 Meq Tablet.er, 10 MEQ PO DAILY for K+ Supplement, (Reported) Entered as Reported by: DANETTE MUNOZ on 07/13/181410 Last Action: New Order on 07/13/181410 by DANETTE MUNOZ Prednisone (Prednisone) 20 Mg Tablet, 1 TAB PO DAILY for COPD for 5 Days, #5 Prescribed by: NABIL SCHERER MD on 07/15/18 1200 Propranolol Hcl (Propranolol Hcl) 10 Mg Tablet, 10 MG PO DAILY for HTN, ( Reported) Entered as Reported by: DANETTE MUNOZ on 07/13/181409 Last Action: Converted on 07/13/181411 by DANETTE MUNOZ Simvastatin (Simvastatin) 10 Mg Tablet, 10 MG PO HS for FOR CHOLESTEROL, #30 Ref 0 (Reported) Entered as Reported by: DANETTE MERCADO on 08/16/16 165 Last Action: Reviewed on 07/13/181400 by DANETTE MUNOZ Tiotropium [place] (Spiriva) 18 Mcg Cap.w.dev, 18 MCG IH DAILY for asthma, ( Reported) Entered as Reported by: Antwan Simmons on 07/23/131752 Last Action: HELD on 07/13/181411 by DANETTE MUNOZ Tizanidine Hcl (Tizanidine Hcl) 4 Mg Tablet, 1 TAB PO BID for muscle relaxer, # 60 (Reported) Entered as Reported by: Dieter Patel on 08/11/17 0248 Last Action: HELD on 07/13/181411 by DANETTE MUNOZ Scheduled PRN Albuterol Sulfate (Proair Hfa Inhaler) 8.5 Gm Hfa.aer.ad, 17 GM IH Q4HRS W/A PRN for wheezing, (Reported) Entered as Reported by: Antwan Simmons on 07/23/131752 Last Action: HELD on 07/13/181411 by DANETTE MUNOZ Hydrocodone Bit/Acetaminophen (Hydrocodone-Apap 7.5-325 ) 1 Tab Tablet, 1 TAB PO PRN Q6HRS PRN for PAIN, Ref 0 (Reported) Entered as Reported by: DANETTE MUNOZ on 07/13/181410 Last Action: New Order on 07/13/181410 by DANETTE MUNOZ Metoclopramide Hcl (Metoclopramide Hcl) 5 Mg Tablet, 5 MG PO PRN BFRMEALHC PRN for NAUSEA/VOMITING, #60 Prescribed by: GARRY DUBON on 01/24/18 0835 Last Action: HELD on 07/13/181411 by DANETTE MUNOZ Ondansetron Hcl (Zofran) 4 Mg Tablet, 1 TAB PO Q8HRS PRN for NAUSEA, #20 Prescribed by: RANDALL KNIGHT D.O. on 10/26/15 4048 Last Action: Converted on 07/13/186 by JUNE CORREA MD Discontinued Medications Cyclobenzaprine Hcl (Cyclobenzaprine Hcl) 10 Mg Tablet, 1 TAB PO BID for Muscle Relaxor, #90 (Reported) Entered as Reported by: DANETTE MUNOZ on 07/13/181410 Last Action: New Order on 07/13/181410 by NABIL JACKSON MD Jul 15, 2018 12:06
--- NOTE | 2018-07-15 12:07 | SNU/HH DC ---
DISCHARGE WITH HOME HEALTH DISCHARGE INFORMATION: Discharge Date: Jul 15, 2018 Final Diagnosis: Problems Medical Problems: (1) Acute chest pain Status: Acute (2) Acute respiratory acidosis Status: Acute (3) CO2 narcosis Status: Acute (4) Hypoxia Status: Acute Condition on Discharge: Stable CODE STATUS: Code Status: Full HOME HEALTH: Face to Face: I certify this patient is under my care and that I, or a nurse practitioner or physician's assistant associate professor working with me, had a face to face encounter that meets the physician face to face encounter requirements with this patient on 07/15/18. Medical Complications: COPD RN For Eval/Treatment: Yes Physical Therapy For: Evalulation/Treatment Occupational Therapy For: Evaluation/Treatment Home Health Aide For: Self-care Pt Meets Homebound Status: Extreme weakness w/ amb., Fatigue w/ amb., Limited distance walking POST DISCHARGE ORDERS: Activity Instructions for Disc: No restrictions Weight Bearing Status after Di: As tolerated DIET AFTER DISCHARGE: Regular CHECKS AFTER DISCHARGE: Checks after discharge: Check blood press - daily, Check blood sugar, ac/hs TREATMENT/EQUIPMENT ORDERS: Adaptive Equipment Issued: None CERTIFICATION STATEMENT: Certification Statement: Certification Statement: Based on the above finding, I certify that this patient is confined to the home and needs intermittent shelter care, physical therapy and/or speech therapy, or continues to need occupational therapy.~ This patient is under my care, and I have initiated the establishment of the plan of care.~ This patient will be followed by myself or a community physician who will periodically review the plan of care. Home Meds Active Scripts Prednisone (PREDNISONE) 20 Mg Tablet, 1 TAB PO DAILY for COPD for 5 Days, #5 TAB Prov:NABIL SCHERER MD 07/15/18 Lactobacillus Rhamnosus Gg (CULTURELLE) 1 Each Cap.sprink, 1 CAP PO BID for diarrhea for 7 Days, #14 CAP Prov:NABIL SCHERER MD 07/15/18 Amoxicillin/Potassium Clav (AUGMENTIN 500-125 TABLET) 1 Each Tablet, 1 TAB PO BID for pneumonia for 7 Days, #14 TAB Prov:NABIL SCHERER MD 07/15/18 Metoclopramide Hcl (METOCLOPRAMIDE HCL) 5 Mg Tablet, 5 MG PO PRN BFRMEALHC PRN for NAUSEA/VOMITING, #60 TAB Prov:GARRY DUBON MD 01/24/18 Pantoprazole Sodium (PROTONIX) 40 Mg Granpkt.dr, 40 MG PO DAILY for GERD for 30 Days, #30 PKT Prov:GARRY DUBON MD 01/24/18 Ondansetron Hcl (ZOFRAN) 4 Mg Tablet, 1 TAB PO Q8HRS PRN for NAUSEA, #20 TAB Prov:RANDALL KNIGHT DO 10/26/15 Reported Medications Hydrocodone Bit/Acetaminophen (HYDROCODONE-APAP 7.5-325 ) 1 Tab Tablet, 1 TAB PO PRN Q6HRS PRN for PAIN, TAB 0 Refills 07/13/18 Glimepiride (GLIMEPIRIDE) 1 Mg Tablet, 1 MG PO DAILY for Diabetes, TAB 07/13/18 Potassium Chloride (KLOR-CON 10) 10 Meq Tablet.er, 10 MEQ PO DAILY for K+ Supplement, TAB 07/13/18 Furosemide (FUROSEMIDE) 20 Mg Tablet, 1 TAB PO DAILY for CHF, #90 TAB 1 Refill 07/13/18 Clopidogrel Bisulfate (CLOPIDOGREL) 75 Mg Tablet, 75 MG PO DAILY for TO PREVENT BLOOD CLOTS, #30 TAB 0 Refills 07/13/18 Propranolol Hcl (PROPRANOLOL HCL) 10 Mg Tablet, 10 MG PO DAILY for HTN, TAB 07/13/18 Benzonatate (BENZONATATE) 100 Mg Capsule, 1 CAP PO TID for cough 10/23/17 Albuterol Sulfate (ALBUTEROL SULFATE NEB SOLN) 2.5 Mg/3 Ml Vial.neb, 1 VIAL NEB BID for asthma, #50 VIAL 08/11/17 Tizanidine Hcl (TIZANIDINE HCL) 4 Mg Tablet, 1 TAB PO BID for muscle relaxer, # 60 TAB 08/11/17 Albuterol Sulfate (ALBUTEROL SULFATE NEB SOLN) 2.5 Mg/3 Ml Vial.neb, 1 VIAL NEB PRN Q4HRS for asthma, #50 VIAL 03/24/17 Guaifenesin (MUCINEX) 600 Mg Tablet.er, 1 TAB PO BID for congestion, #20 TAB 08/16/16 Budesonide/Formoterol Fumarate (SYMBICORT 160-4.5 MCG INHALER) 10.2 Gm Hfa.aer.ad, 1 PUFF IH BID for asthma, INHALER 08/16/16 Cholecalciferol (Vitamin D3) (Vitamin D) 50,000 Unit Capsule, 49747 UNIT PO WEEKLY for supplement, CAP 08/16/16 Oxybutynin Chloride (DITROPAN XL) 5 Mg Tab.er.24, 5 MG PO DAILY for bladder, TAB.SR 08/16/16 Losartan Potassium (LOSARTAN POTASSIUM) 50 Mg Tablet, 50 MG PO DAILY for HTN, TAB 08/16/16 Simvastatin (SIMVASTATIN) 10 Mg Tablet, 10 MG PO HS for FOR CHOLESTEROL, #30 TAB 0 Refills 08/16/16 Albuterol Sulfate (PROAIR HFA INHALER) 8.5 Gm Hfa.aer.ad, 17 GM IH Q4HRS W/A PRN for wheezing 07/23/13 Tiotropium [place] (SPIRIVA) 18 Mcg Cap.w.dev, 18 MCG IH DAILY for asthma 07/23/13 Montelukast Sodium (SINGULAIR TABLET) 10 Mg Tablet, 10 MG PO HS for allergies 07/23/13 Diltiazem Hcl (DILTIAZEM 24HR CD) 120 Mg Cap.er.24h, 120 MG PO DAILY for HTN 07/23/13 Discontinued Reported Medications Cyclobenzaprine Hcl (CYCLOBENZAPRINE HCL) 10 Mg Tablet, 1 TAB PO BID for Muscle Relaxor, #90 TAB 07/13/18 NABIL SCHERER MD Jul 15, 2018 12:07
[2018-07-15] MEDS ORDERED: AMOXICILLIN/K CLAV 875/125MG TABLET. PO SCH (21:00)
--- NOTE | 2018-07-18 08:55 | EKG ---
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
[2018-07-20] MEDS ORDERED: CHOLECALCIFEROL (VITAMIN D3) 5,000 UNIT CAPSULE PO SCH (09:00)
[2018-09-08] MEDS ORDERED: OXYC1TAB15 PO (10:12)
== END 2018-07-15 12:40 | disposition home health service (06) | DRG 871 ==
LOC: ER 06:10 → 2 NORTH 07:40
PROVIDERS: ADMIT Family Medicine; ATTEND Family Medicine
PROC: 5A09357 Assistance with Respiratory Ventilation, Less than 24 Consecutive Hours, Continuous Positive Airway Pressure (ICD-10-PCS; principal; 2018-07-13)
PROC: 5A09357 Assistance with Respiratory Ventilation, Less than 24 Consecutive Hours, Continuous Positive Airway Pressure (ICD-10-PCS; 2018-07-14)
PROC: 5A09357 Assistance with Respiratory Ventilation, Less than 24 Consecutive Hours, Continuous Positive Airway Pressure (ICD-10-PCS; 2018-07-15)
DX: A41.9 Sepsis, unspecified organism (principal); J69.0 Pneumonitis due to inhalation of food and vomit; J96.21 Acute and chronic respiratory failure with hypoxia; J96.22 Acute and chronic respiratory failure with hypercapnia; J44.1 Chronic obstructive pulmonary disease with (acute) exacerbation; E87.2 Acidosis; I13.0 Hypertensive heart and chronic kidney disease with heart failure and stage 1 through stage 4 chronic kidney disease, or unspecified chronic kidney disease; I50.32 Chronic diastolic (congestive) heart failure; J98.11 Atelectasis; M41.9 Scoliosis, unspecified; K76.89 Other specified diseases of liver; E66.01 Morbid (severe) obesity due to excess calories; E83.42 Hypomagnesemia; E11.22 Type 2 diabetes mellitus with diabetic chronic kidney disease; Z96.641 Presence of right artificial hip joint; F41.9 Anxiety disorder, unspecified; M19.90 Unspecified osteoarthritis, unspecified site; E78.00 Pure hypercholesterolemia, unspecified; E78.5 Hyperlipidemia, unspecified; I25.10 Atherosclerotic heart disease of native coronary artery without angina pectoris; K21.9 Gastro-esophageal reflux disease without esophagitis; J98.4 Other disorders of lung; N18.9 Chronic kidney disease, unspecified; Z87.891 Personal history of nicotine dependence; Z90.5 Acquired absence of kidney; Z88.6 Allergy status to analgesic agent; Z82.49 Family history of ischemic heart disease and other diseases of the circulatory system; Z80.3 Family history of malignant neoplasm of breast; Z79.4 Long term (current) use of insulin; Z90.721 Acquired absence of ovaries, unilateral
CPT/HCPCS: 36415; 36600; 71045; 71250; 74177; 76705; 80053; 80061; 81001; 82550; 82805; 82962; 83605; 83690; 83735; 83880; 84484; 85007; 85025; 85379; 87040; 93005; 94640; 94660; 94760; 96361; 96374; 96375; 99291; J0696; J2020; J2060; J2405; J2543; J2930; J3475; J7030; J7620; J7626; Q9967

== ENCOUNTER 2018-07-24 21:52 | Inpatient (IN) | payer OTHER ==
[~2018-07-24] VITALS: Ht 157.5 cm; Wt 55.4 kg
[~2018-07-24 21:52] MED LIST changes: +CLOP75TA PO; +CYCL10TA2 PO; +FURO20TA3 PO; +LACT1CAP19 PO; +POTA10TA12 PO; +PROP10TA PO
[2018-07-24 22:26] LABS: AMPHETAMINE/METHAMPHETAMINE NEG (NEG); BARBITURATES NEG (NEG); BENZODIAZEPINES NEG (NEG); CANNABINOIDS NEG (NEG); COCAINE NEG (NEG); METHADONE NEG (NEG); OPIATES POS (NEG); PHENCYCLIDINE NEG (NEG)
[2018-07-24] MEDS ORDERED: ONDANSETRON PF 4 MG/2 ML VIAL. IV ONE (22:30)
[2018-07-24] MEDS ORDERED: FAMOTIDINE 20 MG/2 ML VIAL IVP ONE (22:30)
[2018-07-24] MEDS ORDERED: methylPREDNISolone SOD SUCC PF 125 MG/2 ML VIAL. IV ONE (22:30)
[2018-07-24] MEDS ORDERED: IPRATRPIUM/ALBUTEROL 0.5/2.5MG 3 ML NEBU. NEB ONE (22:30)
[2018-07-24 22:48] LABS: BASO # 0.1 x10^3/uL (0.0-0.2); BASO % 1 % (0-3); EOS # 0.3 x10^3/uL (0.0-0.7); EOS % 3 % (0-3); HEMATOCRIT 39.9 % (36.0-47.0); HEMOGLOBIN 13.1 g/dL (12.0-15.5); LYMPH # 1.5 x10^3/uL (1.0-4.8); LYMPH % 14 % (24-48); MEAN CORPUSCULAR HEMOGLOBIN 28 pg (25-35); MEAN CORPUSCULAR HGB CONC 33 g/dL (31-37); MEAN CORPUSCULAR VOLUME 86 fL (79-100); MONO # 1.3 x10^3/uL (0.0-1.1); MONO % 13 % (0-9); NEUT # 7.5 x10^3uL (1.8-7.7); NEUT % 70 % (31-73); PLATELET COUNT 500 x10^3/uL (140-400); RED BLOOD COUNT 4.67 x10^6/uL (3.50-5.40); RED CELL DISTRIBUTION WIDTH 16.8 % (11.5-14.5); WHITE BLOOD COUNT 10.7 x10^3/uL (4.0-11.0)
[2018-07-24 22:58] LABS: CALCIUM 9.5 mg/dL (8.5-10.1); CREATININE 1.2 mg/dL (0.6-1.0); GFR 45.7; POTASSIUM 4.2 mmol/L (3.5-5.1)
[2018-07-24 23:06] LABS: ALBUMIN 3.5 g/dL (3.4-5.0); ALBUMIN/GLOBULIN RATIO 0.9 (1.0-1.7); MAGNESIUM 1.9 mg/dL (1.8-2.4); TOTAL BILIRUBIN 0.3 mg/dL (0.2-1.0); TOTAL PROTEIN 7.4 g/dL (6.4-8.2)
[2018-07-24 23:11] LABS: CREATINE KINASE 29 U/L (26-192)
[2018-07-24] MEDS ORDERED: CONTRAST GIVEN. MC PRN (23:15)
[2018-07-24] MEDS ORDERED: IOHEXOL 300 MG/ML 100ML VIAL. IV ONE (23:15)
[2018-07-25] VITALS (7 sets, daily range): BP systolic 104–123; BP diastolic 61–83
--- NOTE | 2018-07-25 00:07 | RAD ---
INDICATION: n/v/d, OMNI 300, 60ml COMPARISON: July 13, 2018 TECHNIQUE: Axial CT images obtained through the abdomen and pelvis with contrast. One or more of the following individualized dose reduction techniques were utilized for this examination: 1. Automated exposure control; 2. Adjustment of the mA and/or kV according to patient size; 3. Use of iterative reconstruction technique. FINDINGS: Severe scoliotic curvature limits exam. Focal opacities at left and right lung base. Right hip arthroplasty. Abdominal aorta not aneurysmal. Scattered plaque. There is some low-density lesions within the liver. The larger 1's have the appearance of cysts and some are too small to characterize. Postcholecystectomy. There is some fatty atrophy of the pancreas. Spleen unremarkable. Postoperative changes to the left kidney with high density along periphery. Skin lesion is seen on the left posterior medially at level of kidneys. No hydronephrosis. There are several tiny too small to characterize renal lesions. Urinary bladder is largely decompressed. Moderate stool in the colon. No definite dilated loops of bowel to suggest obstruction. Sclerosis at left femoral head. Could be from degenerative changes although avascular necrosis also in differential. IMPRESSION: 1. No definite evidence of bowel obstruction. 2. Focal opacities at lung bases which could be from atelectasis or infiltrate. 3. Postoperative changes left kidney again seen. 4. Repeat demonstration of low-density lesions of the liver. Electronically signed by: Bret Paulion MD (07/25/2018 12:04 AM) [id number]
[2018-07-25] MEDS ORDERED: PIPERACILLIN/TAZOBACTAM 2.25 GM in IV NORMAL SALINE 50ML 50 ML IV ONE (00:30)
[2018-07-25] MEDS ORDERED: VANCOMYCIN 1.25 GM in IV NORMAL SALINE 250ML 250 ML IV ONE (00:30)
[2018-07-25] MEDS ORDERED: VANCOMYCIN PER PHARMACY MC PRN (00:30)
[2018-07-25] MEDS ORDERED: PIP/TAZO PER PHARMACY MC PRN (00:30)
--- NOTE | 2018-07-25 01:27 | PHYS DOC ---
Past Medical History Past Medical History: Anxiety, Asthma, COPD, Diabetes-Type I, High Cholesterol , Heart Disease, Hypertension Additional Past Medical Histor: SCOLIOSIS Past Surgical History: Hip Replacement Additional Past Surgical Histo: R hip, Upper L kidney removed, 5 back surgeries due to fall Alcohol Use: Occasionally Drug Use: None Adult General Chief Complaint Chief Complaint: NAUSEA/VOMITING/DIARRHA HPI HPI Patient is a 62 year old female who is presenting with shortness of breath as well as nausea and vomiting she was here for pneumonia couple weeks ago she did get a little bit better but then the last couple of days she is coughing more no definite fevers but she feels very weak it's been hard for her to get around daughter is worried that she is having some trouble taking care of her due to the weakness she did throw up twice after dinner tonight which is not unusual for her she denies abdominal pain she has been admitted several times in the past for COPD and colitis Review of Systems Review of Systems Constitutional: Denies fever or chills [] Eyes: Denies change in visual acuity, redness, or eye pain [] HENT: Denies nasal congestion or sore throat [] Neurologic: Denies headache, focal weakness or sensory changes [] Endocrine: Denies polyuria or polydipsia [] All other systems were reviewed and found to be within normal limits, except as documented in this note. Current Medications Current Medications Current Medications Medications (Trade) Dose Ordered Sig/Thanh Start Time Stop Time Status Last Admin Dose Admin Albuterol/ Ipratropium (Duoneb) 3 ml 1X ONCE 07/24/18 22:30 07/24/18 22:31 DC 07/24/18 22:23 3 ML Famotidine (Pepcid Vial) 20 mg 1X ONCE 07/24/18 22:30 07/24/18 22:31 DC 07/24/18 22:42 20 MG Info (CONTRAST GIVEN -- Rx MONITORING) 1 each PRN DAILY PRN 07/24/18 23:15 07/26/18 23:14 Iohexol (Omnipaque 300 Mg/ml) 60 ml 1X ONCE 07/24/18 23:15 07/24/18 23:16 DC 07/24/18 23:24 60 ML Methylprednisolone Sodium Succinate (SOLU-Medrol 125MG VIAL) 125 mg 1X ONCE 07/24/18 22:30 07/24/18 22:31 DC 07/24/18 22:41 125 MG Ondansetron HCl (Zofran) 4 mg 1X ONCE 07/24/18 22:30 07/24/18 22:31 DC 07/24/18 22:42 4 MG Allergies Allergies Allergies Coded Allergies Type Severity Reaction Last Updated Verified aspirin Allergy Intermediate 06/13/18 Yes Physical Exam Physical Exam Constitutional: Chronically ill-appearing HENT: Normocephalic, atraumatic, bilateral external ears normal, oropharynx moist, no oral exudates, nose normal. [] Eyes: PERRLA, EOMI, conjunctiva normal, no discharge. [] Neck: Normal range of motion, no tenderness, supple, no stridor. [] Cardiovascular:Heart rate regular rhythm, no murmur [] Lungs & Thorax: Wheezing noted per slipped breathing Abdomen: Bowel sounds normal, soft, mild epigastric tenderness, no masses, no pulsatile masses. [] Skin: Warm, dry, no erythema, no rash. [] Back: Significant scoliosis noted Extremities: No tenderness, no cyanosis, no clubbing, ROM intact, trace bilateral symmetric Neurologic: Alert and oriented X 3, normal motor function, normal sensory function, no focal deficits noted. [] Psychologic: Affect normal, judgement normal, mood normal. [] Current Patient Data Vital Signs Vital Signs Date Time Temp Pulse Resp B/P (MAP) Pulse Ox O2 Delivery O2 Flow Rate FiO2 07/24/18 22:23 94 Nasal Cannula 2.0 07/24/18 22:10 97.7 89 20 115/75 (88) 97.7 Lab Values Laboratory Tests Test 07/24/18 22:00 07/24/18 22:40 Urine Opiates Screen Pos (NEG) Urine Methadone Screen Neg (NEG) Urine Barbiturates Neg (NEG) Urine Phencyclidine Screen Neg (NEG) Urine Amphetamine/Methamphetamine Neg (NEG) Urine Benzodiazepines Screen Neg (NEG) Urine Cocaine Screen Neg (NEG) Urine Cannabinoids Screen Neg (NEG) Urine Ethyl Alcohol Neg (NEG) White Blood Count 10.7 x10^3/uL (4.0-11.0) Red Blood Count 4.67 x10^6/uL (3.50-5.40) Hemoglobin 13.1 g/dL (12.0-15.5) Hematocrit 39.9 % (36.0-47.0) Mean Corpuscular Volume 86 fL (79-100) Mean Corpuscular Hemoglobin 28 pg (25-35) Mean Corpuscular Hemoglobin Concent 33 g/dL (31-37) Red Cell Distribution Width 16.8 % (11.5-14.5) H Platelet Count 500 x10^3/uL (140-400) H Neutrophils (%) (Auto) 70 % (31-73) Lymphocytes (%) (Auto) 14 % (24-48) L Monocytes (%) (Auto) 13 % (0-9) H Eosinophils (%) (Auto) 3 % (0-3) Basophils (%) (Auto) 1 % (0-3) Neutrophils # (Auto) 7.5 x10^3uL (1.8-7.7) Lymphocytes # (Auto) 1.5 x10^3/uL (1.0-4.8) Monocytes # (Auto) 1.3 x10^3/uL (0.0-1.1) H Eosinophils # (Auto) 0.3 x10^3/uL (0.0-0.7) Basophils # (Auto) 0.1 x10^3/uL (0.0-0.2) Sodium Level 138 mmol/L (136-145) Potassium Level 4.2 mmol/L (3.5-5.1) Chloride Level 101 mmol/L (98-107) Carbon Dioxide Level 34 mmol/L (21-32) H Anion Gap 3 (6-14) L Blood Urea Nitrogen 16 mg/dL (7-20) Creatinine 1.2 mg/dL (0.6-1.0) H Estimated GFR (Cockcroft-Gault) 45.7 BUN/Creatinine Ratio 13 (6-20) Glucose Level 124 mg/dL (70-99) H Calcium Level 9.5 mg/dL (8.5-10.1) Magnesium Level 1.9 mg/dL (1.8-2.4) Total Bilirubin 0.3 mg/dL (0.2-1.0) Aspartate Amino Transferase (AST) 10 U/L (15-37) L Alanine Aminotransferase (ALT) 13 U/L (14-59) L Alkaline Phosphatase 97 U/L (46-116) Creatine Kinase 29 U/L (26-192) Creatine Kinase MB (Mass) 0.8 ng/mL (0.0-3.6) Creatine Kinase MB Relative Index % (0-4) Troponin I Quantitative < 0.017 ng/mL (0.000-0.055) VG-Ifv-H-Type Natriuretic Peptide 155 pg/mL (0-124) H Total Protein 7.4 g/dL (6.4-8.2) Albumin 3.5 g/dL (3.4-5.0) Albumin/Globulin Ratio 0.9 (1.0-1.7) L Lipase 40 U/L (73-393) L Laboratory Tests 07/24/18 22:40 Laboratory Tests 07/24/18 22:40 EKG EKG []EKG shows a normal sinus rhythm rate of 89 no acute ischemic changes noted interpreted by me at the time of encounter. Radiology/Procedures Radiology/Procedures [] Impressions: IMPRESSION: 1. No definite evidence of bowel obstruction. 2. Focal opacities at lung bases which could be from atelectasis or infiltrate. 3. Postoperative changes left kidney again seen. 4. Repeat demonstration of low-density lesions of the liver. Electronically signed by: Bret Paulino MD (07/25/2018 12:04 AM) [facility] Chest x-ray very difficult to interpret due to scoliosis possible pneumonia CT scan noted above does show continued focal opacities at the lung bases. Course & Med Decision Making Course & Med Decision Making Pertinent Labs and Imaging studies reviewed. (See chart for details) []62-year-old female presenting with shortness of breath found to have COPD exacerbation 88% on room air she is not on home oxygen she warrants admission for oxygen support as well as beta agonist and steroid therapy. In addition CT of the abdomen pelvis that was ordered due to history of colitis did show lung base opacity so patient was given broad-spectrum antibiotics given her recent admission to the hospital for pneumonia lactic acid and blood cultures are currently pending. Patient is stable at this time she felt better after breathing treatment in the emergency room and she'll be admitted for further evaluation to the service of Dr. Beckett per the usual local protocol Dragon Disclaimer Dragon Disclaimer This electronic medical record was generated, in whole or in part, using a voice recognition dictation system. Departure Departure Impression: Primary Impression: COPD exacerbation Additional Impression: Pneumonia Disposition: 09 ADMITTED INPATIENT Admitting Physician: Laurie Crow Condition: STABLE Referrals: JACKIE REESE MD (PCP) Problem Qualifiers JALEESA SOTO MD Jul 25, 2018 01:27
--- NOTE | 2018-07-25 01:30 | NUR ---
The patient, TREASURE CALVERT, 62 y/o, F admitted by DAYLIN ANDINO III, DO, was given written information regarding hospital policies, unit procedures and contact persons. Valuables were checked and left in the room.
--- NOTE | 2018-07-25 02:10 | NUR ---
Pharmacy Vancomycin Dosing Note S:Consulted to monitor and dose vancomycin started 07/25/18. O:TREASURE CALVERT is a 62 year old F with Pneumonia . Height: 5 feet, 2 inches Weight: 52.027822 kg [place] Body Weight: 50.10 Adjusted Body Weight: 50.94 Dosing Weight: Actual Other Antibiotics: ZOSYN 2.25G IV Q6H LABS: Last BUN: 16 Last Creatinine: 1.2 Creatinine Clearance: 39.5 mL/min Last WBC: 10.7 Last Procalcitonin: Tmax (past 24 hours): Microbiology: I/O: Drug Levels: Last level: on at Last dose given at Vancomycin Dosing: Loading Dose: 1250 mg x1 07/25/18 0150 Dosing Weight: Actual Target Trough: 15-20 A: Based on: Actual Wt and CrCl P: 1. 07/26/18 0200 Vancomycin 750 mg IV q24h 2. Follow up Trough level on 07/27/18 at 0130 3. Pharmacy will continue to monitor, follow and adjust therapy as needed. JAMES SOTELO RPH, 07/25/18209 Signed: 07/25/18 at 0211 by JAMES SOTELO RPH PHA
[2018-07-25] MEDS ORDERED: AMLO2.5T5 PO (02:20)
[2018-07-25] MEDS: HYDROcodone/APAP 5/325MG 1 TAB TABLET PO PRN ×2 (04:20→20:53)
[2018-07-25] MEDS: PIPERACILLIN/TAZOBACTAM 2.25 GM in IV NORMAL SALINE 50ML 50 ML IV SCH ×4 (05:50→23:53)
[2018-07-25] MEDS: IPRATRPIUM/ALBUTEROL 0.5/2.5MG 3 ML NEBU. NEB SCH ×4 (07:36→19:30)
--- NOTE | 2018-07-25 07:39 | EKG ---
[facility] [address] [place] [address] Test Date: 2018-07-24 Test Time: 22:30:46 Pat Name: TREASURE CALVERT Department: Room: 506 1 Gender: F [employer] Fe[employer]: : [id number] Requested By: DMITRIY CARRASQUILLO Order Number: [id number] Reading MD: Spenser Shine MD Measurements Intervals Fowler Rate: 89 P: 61 NE: 140 QRS: -69 QRSD: 118 T: 28 QT: 392 QTc: 478 Interpretive Statements SINUS RHYTHM LEFT ATRIAL ABNORMALITY RBBB NON-SPECIFIC ST/T CHANGES Electronically Signed On 07-29-2018 14:50:55 CDT by Spenser Shine MD
--- NOTE | 2018-07-25 07:42 | RAD ---
Examination: PORTABLE CHEST 1V History: sob, Comparison/Correlation: 07/13/2018 portable chest x-ray exam Findings: Portable upright frontal view chest was obtained. Significant dextroconvex scoliosis of the thoracic spine again seen. Right lung volume is fairly minimal as compared to the left lung volume on basis of the frontal view provided similar to previous exams. No new infiltrate. No pneumothorax or pleural effusion. Pulmonary vasculature is within normal limits. Surgical clip overlies the lower thoracic spine level. Right upper quadrant surgical clips noted. Impression: No active disease. Consider lateral view for more complete assessment of lung bases if clinically desired. Electronically signed by: Tomi Badillo MD (07/25/2018 7:39 AM) [facility]
[2018-07-25] MEDS ORDERED: ALBUTEROL SULFATE 2.5 MG/3 ML NEBU. NEB PRN (10:45)
[2018-07-25] MEDS ORDERED: METOCLOPRAMIDE 5 MG TABLET. PO PRN (10:45)
[2018-07-25] MEDS ORDERED: ONDANSETRON ODT 4 MG TAB.RAPDIS. PO PRN (11:00)
[2018-07-25] MEDS: LOSARTAN POTASSIUM 50 MG TABLET. PO SCH (11:00)
[2018-07-25] MEDS: amLODIPine BESYLATE 5 MG TABLET PO SCH (11:00)
--- NOTE | 2018-07-25 11:46 | HP ---
ADMIT DATE: 07/25/2018 CHIEF COMPLAINT: Nausea, vomiting, abdominal pain and diarrhea. HISTORY OF PRESENT ILLNESS: The patient is a pleasant 62-year-old female, well known to our service. She has advanced COPD, but states she has quit smoking. At this time, she surprisingly presented with GI complaints. It is nausea, abdominal pain, diarrhea and vomiting. She has associated weakness, rates it as a 7/10. She was brought in by her daughter. She vomited twice last night. She tried taking some home meds, but that did not seem to work, describes it as agonizing. I discussed the case with ER physician. It appears she probably has colitis. We are going to admit the patient and consult GI and Pulmonary. PAST MEDICAL HISTORY: COPD, multiple admissions for COPD, asthma, anxiety, diabetes, hypertension, hyperlipidemia, scoliosis, hip replacement, left kidney resection, 5 back surgeries. ALLERGIES: ASPIRIN. FAMILY HISTORY: Scoliosis. SOCIAL HISTORY: She does not drink or take drugs. She smoked, but she states she has quit. MEDICATIONS: She is on Augmentin, Spiriva, ProAir, albuterol, simvastatin, amlodipine, diltiazem, losartan, benzonatate, Singulair, Mucinex, ondansetron, Protonix, metoclopramide, Culturelle, prednisone, Ditropan and vitamin D. REVIEW OF SYSTEMS: GENERAL: No history of weight change, weakness or fevers. SKIN: No bruising, hair changes or rashes. EYES: No blurred, double or loss of vision. NOSE AND THROAT: No history of nosebleeds, hoarseness or sore throat. HEART: No history of palpitations, chest pain or shortness of breath on exertion. LUNGS: Denies cough, hemoptysis, wheezing or shortness of breath. GASTROINTESTINAL: She complains of abdominal pain, nausea and diarrhea. GENITOURINARY: No history of frequency, urgency, hesitancy or nocturia. NEUROLOGIC: Denies history of numbness, tingling, tremor or weakness. PSYCHIATRIC: No history of panic, anxiety or depression. ENDOCRINE: No history of heat or cold intolerance, polyuria or polydipsia. EXTREMITIES: Denies muscle weakness, joint pain, pain on walking or stiffness. PHYSICAL EXAMINATION: VITAL SIGNS: Temperature 97, pulse 109, respirations 18, blood pressure 105/69, O2 sat 95% on 2 liters. GENERAL: She is depressed and weak. Does not appear her normal self, she does appear sick. HEART: Distant S1, S2. LUNGS: Diminished. ABDOMEN: Soft, slightly tender. Decreased bowel sounds. EXTREMITIES: Trace edema. SKIN: No rashes. PSYCHIATRIC: She is depressed. VASCULAR: Good capillary refill. ENDOCRINE: No thyromegaly. LYMPHATICS: No cervical nodes. HEMATOPOIETIC: No bruising. LABORATORY DATA: White count is 10, hemoglobin 13, platelets 500. Electrolytes are pending. Troponin is 0. BNP 155. Drug screen is positive for opiates, but otherwise negative. Chest x-ray, no acute disease. CT of the abdomen shows no definitive evidence of bowel obstruction. It does show possible atelectasis or infiltrate. Postoperative changes of the left kidney. ASSESSMENT AND PLAN: Nausea, vomiting, abdominal pain, diarrhea, suspected clinical colitis or enteritis in a middle-aged female who also has chronic obstructive pulmonary disease and abnormal imaging suspicious for atelectasis or pneumonia. The patient is being admitted. We will consult Pulmonary, consult GI. Full code. DVT prophylaxis. Home meds, IV vancomycin, IV Zosyn. O2 per nasal cannula. PROGNOSIS: Guarded. DAYLIN ANDINO DO DR: MELA/jose JOB#: [id number] / [id number]
[2018-07-25] MEDS: PANTOPRAZOLE 40 MG TABLET.DR. PO SCH (12:38)
--- NOTE | 2018-07-25 13:43 | PDOC2 ---
JOY NIEVES 07/25/18 1343: GI CONSULT Reason For Consult: n/v/d with h/o colitis HPI: HPI: 62 y/o female seen with Dr. Wells this afternoon - she just finished eating a burger, broccoli, and jello. Reports abdomen felt achy x 2 days. Before that she had some diarrhea. Later she ate a steak and baked potato and vomited. No precipitating events or sick contacts. Currently feeling better with no pain, no n/v, and no diarrhea. Probably not the best historian. Recent admission for pneumonia/bronchitis. Several past CTs (though not this admission) have noted left colonic wall thickening, also hepatic cysts and fatty atrophy of pancreas. S/p cholecystectomy. More than one colonoscopy in the past - unable to view results but seems last performed in [address] Muhammad (though outpt colonoscopy recommended when we saw in 01/2018). Old records mention h/o duodenal adenoma, unclear when last EGD performed. GES in 2018 showed delayed gastric emptying w/ T1/2 146 min. Looks like she has been given prescriptions for PRN Reglan in the past. Previously reported she takes a "stomach medicine that start with a p" and another PRN Rx for abd pain. Now says her doctor told her to take an OTC medication for constipation. PMH: PMH: CHF, HTN, HLD, DM, asthma/COPD, pneumonia, ?GERD, gastroparesis, duodenal adenoma, IBS, vertigo, OA, scoliosis, ?neurofibromatosis right hip replacement, partial left nephrectomy, cholecystectomy, ?appendectomy, left oophorectomy, back surgeries FH: Family History: No pertinent hx Social History: ALCOHOL: none Drugs: None ROS: GEN: Denies fevers, chills, sweats HEENT: Denies blurred vision, sore throat CV: Denies chest pain RESP: +SOA GI: Per HPI : Denies hematuria, dysuria ENDO: Denies weight changes NEURO: Denies confusion, dizziness MSK: Denies weakness, joint pain/swelling SKIN: Denies jaundice, pruritus Vitals: Vitals: Vital Signs Date Time Temp Pulse Resp B/P (MAP) Pulse Ox O2 Delivery O2 Flow Rate FiO2 07/25/18 12:38 109 105/69 07/25/18 11:10 92 Nasal Cannula 1.0 07/25/18 10:42 97.8 18 97.8 Labs: Labs: Laboratory Tests Test 07/24/18 22:00 07/24/18 22:40 07/25/18 01:10 07/25/18 07:21 Urine Opiates Screen Pos (NEG) Urine Methadone Screen Neg (NEG) Urine Barbiturates Neg (NEG) Urine Phencyclidine Screen Neg (NEG) Urine Amphetamine/Methamphetamine Neg (NEG) Urine Benzodiazepines Screen Neg (NEG) Urine Cocaine Screen Neg (NEG) Urine Cannabinoids Screen Neg (NEG) Urine Ethyl Alcohol Neg (NEG) White Blood Count 10.7 x10^3/uL (4.0-11.0) Red Blood Count 4.67 x10^6/uL (3.50-5.40) Hemoglobin 13.1 g/dL (12.0-15.5) Hematocrit 39.9 % (36.0-47.0) Mean Corpuscular Volume 86 fL (79-100) Mean Corpuscular Hemoglobin 28 pg (25-35) Mean Corpuscular Hemoglobin Concent 33 g/dL (31-37) Red Cell Distribution Width 16.8 % (11.5-14.5) Platelet Count 500 x10^3/uL (140-400) Neutrophils (%) (Auto) 70 % (31-73) Lymphocytes (%) (Auto) 14 % (24-48) Monocytes (%) (Auto) 13 % (0-9) Eosinophils (%) (Auto) 3 % (0-3) Basophils (%) (Auto) 1 % (0-3) Neutrophils # (Auto) 7.5 x10^3uL (1.8-7.7) Lymphocytes # (Auto) 1.5 x10^3/uL (1.0-4.8) Monocytes # (Auto) 1.3 x10^3/uL (0.0-1.1) Eosinophils # (Auto) 0.3 x10^3/uL (0.0-0.7) Basophils # (Auto) 0.1 x10^3/uL (0.0-0.2) Sodium Level 138 mmol/L (136-145) Potassium Level 4.2 mmol/L (3.5-5.1) Chloride Level 101 mmol/L (98-107) Carbon Dioxide Level 34 mmol/L (21-32) Anion Gap 3 (6-14) Blood Urea Nitrogen 16 mg/dL (7-20) Creatinine 1.2 mg/dL (0.6-1.0) Estimated GFR (Cockcroft-Gault) 45.7 BUN/Creatinine Ratio 13 (6-20) Glucose Level 124 mg/dL (70-99) Calcium Level 9.5 mg/dL (8.5-10.1) Magnesium Level 1.9 mg/dL (1.8-2.4) Total Bilirubin 0.3 mg/dL (0.2-1.0) Aspartate Amino Transf (AST/SGOT) 10 U/L (15-37) Alanine Aminotransferase (ALT/SGPT) 13 U/L (14-59) Alkaline Phosphatase 97 U/L (46-116) Creatine Kinase 29 U/L (26-192) Creatine Kinase MB (Mass) 0.8 ng/mL (0.0-3.6) Creatine Kinase MB Relative Index % (0-4) Troponin I Quantitative < 0.017 ng/mL (0.000-0.055) ZI-Cca-J-Type Natriuretic Peptide 155 pg/mL (0-124) Total Protein 7.4 g/dL (6.4-8.2) Albumin 3.5 g/dL (3.4-5.0) Albumin/Globulin Ratio 0.9 (1.0-1.7) Lipase 40 U/L (73-393) Lactic Acid Level 0.5 mmol/L (0.4-2.0) Glucose (Fingerstick) 147 mg/dL (70-99) Test 07/25/18 11:00 Glucose (Fingerstick) 204 mg/dL (70-99) Allergies: Coded Allergies: aspirin (Verified Allergy, Intermediate, 06/13/18) TRIGGER ASTHMA Medications: Current Medications Medications (Trade) Dose Ordered Sig/Thanh Route PRN Reason Start Time Stop Time Status Last Admin Dose Admin Albuterol/ Ipratropium (Duoneb) 3 ml 1X ONCE NEB 07/24/18 22:30 07/24/18 22:31 DC 07/24/18 22:23 Methylprednisolone Sodium Succinate (SOLU-Medrol 125MG VIAL) 125 mg 1X ONCE IV 07/24/18 22:30 07/24/18 22:31 DC 07/24/18 22:41 Famotidine (Pepcid Vial) 20 mg 1X ONCE IVP 07/24/18 22:30 07/24/18 22:31 DC 07/24/18 22:42 Ondansetron HCl (Zofran) 4 mg 1X ONCE IV 07/24/18 22:30 07/24/18 22:31 DC 07/24/18 22:42 Iohexol (Omnipaque 300 Mg/ml) 60 ml 1X ONCE IV 07/24/18 23:15 07/24/18 23:16 DC 07/24/18 23:24 Vancomycin HCl (Vanco Per Pharmacy) 1 each PRN DAILY PRN MC SEE COMMENTS 07/25/18 00:30 07/25/18 02:06 Albuterol/ Ipratropium (Duoneb) 3 ml RTQID NEB 07/25/18 08:00 07/26/18 07:59 07/25/18 11:09 Vancomycin HCl 1.25 gm/Sodium Chloride 250 ml @ 166.667 mls/hr 1X ONCE IV 07/25/18 00:30 07/25/18 01:59 DC 07/25/18 01:50 Piperacillin Sod/ Tazobactam Sod 2.25 gm/Sodium Chloride 50 ml @ 100 mls/hr 1X ONCE IV 07/25/18 00:30 07/25/18 00:59 DC 07/25/18 00:47 Piperacillin Sod/ Tazobactam Sod 2.25 gm/Sodium Chloride 50 ml @ 100 mls/hr Q6HRS IV 07/25/18 06:00 07/25/18 12:39 Acetaminophen/ Hydrocodone Bitart (Lortab 5/325) 1 tab PRN Q4HRS PRN PO PAIN 07/25/18 03:45 07/25/18 04:20 Diltiazem HCl (Cardizem 24hr Cd) 120 mg DAILY PO 07/25/18 11:00 07/25/18 12:38 Pantoprazole Sodium (Protonix) 40 mg DAILYAC PO 07/25/18 11:00 07/25/18 12:38 Imaging: Imaging: CXR Impression: No active disease. Consider lateral view for more complete assessment of lung bases if clinically desired. CT A/P Severe scoliotic curvature limits exam. Focal opacities at left and right lung base. Right hip arthroplasty. Abdominal aorta not aneurysmal. Scattered plaque. There is some low-density lesions within the liver. The larger 1's have the appearance of cysts and some are too small to characterize. Postcholecystectomy. There is some fatty atrophy of the pancreas. Spleen unremarkable. Postoperative changes to the left kidney with high density along periphery. Skin lesion is seen on the left posterior medially at level of kidneys. No hydronephrosis. There are several tiny too small to characterize renal lesions. Urinary bladder is largely decompressed. Moderate stool in the colon. No definite dilated loops of bowel to suggest obstruction. Sclerosis at left femoral head. Could be from degenerative changes although avascular necrosis also in differential. IMPRESSION: 1. No definite evidence of bowel obstruction. 2. Focal opacities at lung bases which could be from atelectasis or infiltrate. 3. Postoperative changes left kidney again seen. 4. Repeat demonstration of low-density lesions of the liver. PE: GEN: NAD HEENT: Atraumatic, PERRL LUNGS: NC HEART: tachycardic ABD: NABS, S/ND/NT EXTREMITY: No edema SKIN: No rashes, no jaundice NEURO/PSYCH: A & O 3 A/P: A/P: Abd pain, n/v, "diarrhea" ---> h/o gastroparesis ?GERD, h/o duodenal adenoma CRC screen - last in 2013 S/p cholecystectomy H/o COPD, recent pneumonia (and on IV atbx here) Thrombocytosis (intermittent on past labs), ?ROSSANA -- GI symptoms resolved. Check stool studies if diarrhea recurs (but moderate stool noted on CT). Consider outpt 'scopes. Agree w/ PPI. Also has Reglan PRN ordered. DIONNA WELLS MD 07/25/18 1348: JOY NIEVES Jul 25, 2018 13:43 DIONNA WELLS MD Jul 25, 2018 13:48
[2018-07-25] MEDS: BENZONATATE 100 MG CAPSULE. PO SCH ×2 (15:01→20:45)
[2018-07-25] MEDS: OXYBUTYNIN CHLORIDE 5 MG TABLET PO SCH ×2 (15:01→20:45)
--- NOTE | 2018-07-25 18:15 | PDOC ---
PULMONARY PROGRESS NOTES Vitals Vital Signs Date Time Temp Pulse Resp B/P (MAP) Pulse Ox O2 Delivery O2 Flow Rate FiO2 07/25/18 15:29 93 Nasal Cannula 1.0 07/25/18 15:00 97.8 111 18 118/61 (80) 97.8 General: Alert, No acute distress Lungs: Crackles Cardiovascular: S1, S2 Abdomen: Soft Extremities: No Edema Labs Laboratory Tests Test 07/24/18 22:00 07/24/18 22:40 07/25/18 01:10 07/25/18 07:21 Urine Opiates Screen Pos (NEG) Urine Methadone Screen Neg (NEG) Urine Barbiturates Neg (NEG) Urine Phencyclidine Screen Neg (NEG) Urine Amphetamine/Methamphetamine Neg (NEG) Urine Benzodiazepines Screen Neg (NEG) Urine Cocaine Screen Neg (NEG) Urine Cannabinoids Screen Neg (NEG) Urine Ethyl Alcohol Neg (NEG) White Blood Count 10.7 x10^3/uL (4.0-11.0) Red Blood Count 4.67 x10^6/uL (3.50-5.40) Hemoglobin 13.1 g/dL (12.0-15.5) Hematocrit 39.9 % (36.0-47.0) Mean Corpuscular Volume 86 fL (79-100) Mean Corpuscular Hemoglobin 28 pg (25-35) Mean Corpuscular Hemoglobin Concent 33 g/dL (31-37) Red Cell Distribution Width 16.8 % (11.5-14.5) Platelet Count 500 x10^3/uL (140-400) Neutrophils (%) (Auto) 70 % (31-73) Lymphocytes (%) (Auto) 14 % (24-48) Monocytes (%) (Auto) 13 % (0-9) Eosinophils (%) (Auto) 3 % (0-3) Basophils (%) (Auto) 1 % (0-3) Neutrophils # (Auto) 7.5 x10^3uL (1.8-7.7) Lymphocytes # (Auto) 1.5 x10^3/uL (1.0-4.8) Monocytes # (Auto) 1.3 x10^3/uL (0.0-1.1) Eosinophils # (Auto) 0.3 x10^3/uL (0.0-0.7) Basophils # (Auto) 0.1 x10^3/uL (0.0-0.2) Sodium Level 138 mmol/L (136-145) Potassium Level 4.2 mmol/L (3.5-5.1) Chloride Level 101 mmol/L (98-107) Carbon Dioxide Level 34 mmol/L (21-32) Anion Gap 3 (6-14) Blood Urea Nitrogen 16 mg/dL (7-20) Creatinine 1.2 mg/dL (0.6-1.0) Estimated GFR (Cockcroft-Gault) 45.7 BUN/Creatinine Ratio 13 (6-20) Glucose Level 124 mg/dL (70-99) Calcium Level 9.5 mg/dL (8.5-10.1) Magnesium Level 1.9 mg/dL (1.8-2.4) Total Bilirubin 0.3 mg/dL (0.2-1.0) Aspartate Amino Transf (AST/SGOT) 10 U/L (15-37) Alanine Aminotransferase (ALT/SGPT) 13 U/L (14-59) Alkaline Phosphatase 97 U/L (46-116) Creatine Kinase 29 U/L (26-192) Creatine Kinase MB (Mass) 0.8 ng/mL (0.0-3.6) Creatine Kinase MB Relative Index % (0-4) Troponin I Quantitative < 0.017 ng/mL (0.000-0.055) ZN-Kpt-V-Type Natriuretic Peptide 155 pg/mL (0-124) Total Protein 7.4 g/dL (6.4-8.2) Albumin 3.5 g/dL (3.4-5.0) Albumin/Globulin Ratio 0.9 (1.0-1.7) Lipase 40 U/L (73-393) Lactic Acid Level 0.5 mmol/L (0.4-2.0) Glucose (Fingerstick) 147 mg/dL (70-99) Test 07/25/18 11:00 07/25/18 16:26 Glucose (Fingerstick) 204 mg/dL (70-99) 120 mg/dL (70-99) Laboratory Tests Test 07/24/18 22:00 07/24/18 22:40 07/25/18 01:10 07/25/18 07:21 Urine Opiates Screen Pos (NEG) Urine Methadone Screen Neg (NEG) Urine Barbiturates Neg (NEG) Urine Phencyclidine Screen Neg (NEG) Urine Amphetamine/Methamphetamine Neg (NEG) Urine Benzodiazepines Screen Neg (NEG) Urine Cocaine Screen Neg (NEG) Urine Cannabinoids Screen Neg (NEG) Urine Ethyl Alcohol Neg (NEG) White Blood Count 10.7 x10^3/uL (4.0-11.0) Red Blood Count 4.67 x10^6/uL (3.50-5.40) Hemoglobin 13.1 g/dL (12.0-15.5) Hematocrit 39.9 % (36.0-47.0) Mean Corpuscular Volume 86 fL (79-100) Mean Corpuscular Hemoglobin 28 pg (25-35) Mean Corpuscular Hemoglobin Concent 33 g/dL (31-37) Red Cell Distribution Width 16.8 % (11.5-14.5) Platelet Count 500 x10^3/uL (140-400) Neutrophils (%) (Auto) 70 % (31-73) Lymphocytes (%) (Auto) 14 % (24-48) Monocytes (%) (Auto) 13 % (0-9) Eosinophils (%) (Auto) 3 % (0-3) Basophils (%) (Auto) 1 % (0-3) Neutrophils # (Auto) 7.5 x10^3uL (1.8-7.7) Lymphocytes # (Auto) 1.5 x10^3/uL (1.0-4.8) Monocytes # (Auto) 1.3 x10^3/uL (0.0-1.1) Eosinophils # (Auto) 0.3 x10^3/uL (0.0-0.7) Basophils # (Auto) 0.1 x10^3/uL (0.0-0.2) Sodium Level 138 mmol/L (136-145) Potassium Level 4.2 mmol/L (3.5-5.1) Chloride Level 101 mmol/L (98-107) Carbon Dioxide Level 34 mmol/L (21-32) Anion Gap 3 (6-14) Blood Urea Nitrogen 16 mg/dL (7-20) Creatinine 1.2 mg/dL (0.6-1.0) Estimated GFR (Cockcroft-Gault) 45.7 BUN/Creatinine Ratio 13 (6-20) Glucose Level 124 mg/dL (70-99) Calcium Level 9.5 mg/dL (8.5-10.1) Magnesium Level 1.9 mg/dL (1.8-2.4) Total Bilirubin 0.3 mg/dL (0.2-1.0) Aspartate Amino Transf (AST/SGOT) 10 U/L (15-37) Alanine Aminotransferase (ALT/SGPT) 13 U/L (14-59) Alkaline Phosphatase 97 U/L (46-116) Creatine Kinase 29 U/L (26-192) Creatine Kinase MB (Mass) 0.8 ng/mL (0.0-3.6) Creatine Kinase MB Relative Index % (0-4) Troponin I Quantitative < 0.017 ng/mL (0.000-0.055) UU-Gze-D-Type Natriuretic Peptide 155 pg/mL (0-124) Total Protein 7.4 g/dL (6.4-8.2) Albumin 3.5 g/dL (3.4-5.0) Albumin/Globulin Ratio 0.9 (1.0-1.7) Lipase 40 U/L (73-393) Lactic Acid Level 0.5 mmol/L (0.4-2.0) Glucose (Fingerstick) 147 mg/dL (70-99) Test 07/25/18 11:00 07/25/18 16:26 Glucose (Fingerstick) 204 mg/dL (70-99) 120 mg/dL (70-99) Medications Active Scripts Medications Dose Route/Sig Max Daily Dose Days Date Category Amlodipine Besylate 2.5 Mg Tablet 2.5 Mg PO DAILY 07/25/18 Reported Prednisone 20 Mg Tablet 1 Tab PO DAILY 5 07/15/18 Rx Culturelle (Lactobacillus Rhamnosus Gg) 1 Each Cap.sprink 1 Cap PO BID 7 07/15/18 Rx Augmentin 500-125 Tablet (Amoxicillin/Potassium Clav) 1 Each Tablet 1 Tab PO BID 7 07/15/18 Rx Metoclopramide Hcl 5 Mg Tablet 5 Mg PO PRN BFRMEALHC PRN 01/24/18 Rx Protonix (Pantoprazole Sodium) 40 Mg Granpkt.dr 40 Mg PO DAILY 30 01/24/18 Rx Benzonatate 100 Mg Capsule 1 Cap PO TID 10/23/17 Reported Albuterol Sulfate Neb Soln (Albuterol Sulfate) 2.5 Mg/3 Ml Vial.neb 1 Vial NEB BID 08/11/17 Reported Albuterol Sulfate Neb Soln (Albuterol Sulfate) 2.5 Mg/3 Ml Vial.neb 1 Vial NEB PRN Q4HRS 03/24/17 Reported Mucinex (Guaifenesin) 600 Mg Tablet.er 1 Tab PO BID 08/16/16 Reported Vitamin D (Cholecalciferol (Vitamin D3)) 50,000 Unit Capsule 50,000 Unit PO WEEKLY 08/16/16 Reported Ditropan Xl (Oxybutynin Chloride) 5 Mg Tab.er.24 5 Mg PO DAILY 08/16/16 Reported Losartan Potassium 50 Mg Tablet 50 Mg PO DAILY 08/16/16 Reported Simvastatin 10 Mg Tablet 10 Mg PO HS 08/16/16 Reported Zofran (Ondansetron Hcl) 4 Mg Tablet 1 Tab PO Q8HRS PRN 10/26/15 Rx Proair Hfa Inhaler (Albuterol Sulfate) 8.5 Gm Hfa.aer.ad 17 Gm IH Q4HRS W/A PRN 07/23/13 Reported Spiriva (Tiotropium [place]) 18 Mcg Cap.w.dev 18 Mcg IH DAILY 07/23/13 Reported Singulair Tablet (Montelukast Sodium) 10 Mg Tablet 10 Mg PO HS 07/23/13 Reported Diltiazem 24HR Cd (Diltiazem Hcl) 120 Mg Cap.er.24h 120 Mg PO DAILY 07/23/13 Reported Impression . NOTE DICTATED POSSIBLE PNEUMONIA SEE ORDERS RUSSELL ROBERTSON MD Jul 25, 2018 18:15
[2018-07-25] MEDS: BUDESONIDE 0.5 MG/2 ML NEBU. NEB SCH (19:29)
[2018-07-25] MEDS: LACTOBACILLUS RHAMNOSUS GG 1 CAPSULE. PO SCH (20:45)
[2018-07-25] MEDS: MONTELUKAST SODIUM 10 MG TABLET. PO SCH (20:45)
[2018-07-25] MEDS: SIMVASTATIN 10 MG TABLET PO SCH (20:45)
[2018-07-25] MEDS ORDERED: LACTOBACILLUS RHAMNOSUS GG 1 CAPSULE. PO SCH (21:00)
[2018-07-25] MEDS ORDERED: ALBUTEROL SULFATE 2.5 MG/3 ML NEBU. NEB SCH (21:00)
[2018-07-26] MEDS ORDERED: VANCOMYCIN 750 MG in IV NORMAL SALINE 250ML 250 ML IV SCH (02:00)
[2018-07-26 03:00] VITALS: BP 108/66
[2018-07-26] MEDS: PIPERACILLIN/TAZOBACTAM 2.25 GM in IV NORMAL SALINE 50ML 50 ML IV SCH ×3 (05:56→18:14)
[2018-07-26 05:59] LABS: BASO % 0 % (0-3); EOS % 0 % (0-3); HEMATOCRIT 33.1 % (36.0-47.0); LYMPH # 0.8 x10^3/uL (1.0-4.8); LYMPH % 8 % (24-48); MEAN CORPUSCULAR HEMOGLOBIN 28 pg (25-35); MEAN CORPUSCULAR HGB CONC 33 g/dL (31-37); MEAN CORPUSCULAR VOLUME 86 fL (79-100); MONO # 1.1 x10^3/uL (0.0-1.1); MONO % 11 % (0-9); NEUT # 8.3 x10^3uL (1.8-7.7); NEUT % 81 % (31-73); PLATELET COUNT 376 x10^3/uL (140-400); RED BLOOD COUNT 3.86 x10^6/uL (3.50-5.40); RED CELL DISTRIBUTION WIDTH 16.9 % (11.5-14.5); WHITE BLOOD COUNT 10.2 x10^3/uL (4.0-11.0)
[2018-07-26 06:03] LABS: CALCIUM 9.1 mg/dL (8.5-10.1); CREATININE 0.7 mg/dL (0.6-1.0); GFR 85.1; POTASSIUM 4.5 mmol/L (3.5-5.1)
[2018-07-26 07:00] VITALS: BP 114/72
[2018-07-26] MEDS: BUDESONIDE 0.5 MG/2 ML NEBU. NEB SCH ×2 (07:09→20:11)
[2018-07-26] MEDS: IPRATRPIUM/ALBUTEROL 0.5/2.5MG 3 ML NEBU. NEB SCH ×4 (07:09→20:11)
[2018-07-26] MEDS: PANTOPRAZOLE 40 MG TABLET.DR. PO SCH (08:11)
[2018-07-26] MEDS: OXYBUTYNIN CHLORIDE 5 MG TABLET PO SCH ×3 (08:11→21:43)
[2018-07-26] MEDS: LACTOBACILLUS RHAMNOSUS GG 1 CAPSULE. PO SCH ×2 (08:11→21:43)
[2018-07-26] MEDS: amLODIPine BESYLATE 5 MG TABLET PO SCH (08:12)
[2018-07-26] MEDS: BENZONATATE 100 MG CAPSULE. PO SCH ×3 (08:13→21:43)
[2018-07-26] MEDS ORDERED: NON FORMULARY ITEM (Tiotropium Bromide (Spiriva) 18 MCG) IH SCH (09:00)
--- NOTE | 2018-07-26 10:35 | CONS ---
DATE OF CONSULTATION: 07/25/2018 ATTENDING PHYSICIAN: Laurie Crow D.O. CONSULTING PHYSICIAN: Russell Robertson M.D. REASON FOR CONSULTATION: The patient seen in Pulmonary consultation at the request of Dr. Crow for increasing shortness of air. HISTORY OF PRESENT ILLNESS: The patient is a 62-year old who presented mostly because of nausea, vomiting for the past 2-3 days. She was increasingly more short of breath. No fever or chills. No sick contacts. She had a chest x-ray, which revealed no significant abnormality. She has severe scoliosis and imaging studies included a CT abdomen and pelvis. CT abdomen upper cuts reveals focal opacities in the lung bases. The patient is currently receiving IV antibiotics. I was asked to see her in consultation. PAST MEDICAL HISTORY: Tobacco dependence, in remission; underlying COPD; severe scoliosis with restrictive lung disorder; type 1 diabetes; hyperlipidemia; hypertension and coronary artery disease. PAST SURGICAL HISTORY: Previous back surgery and hip surgery. She had a partial nephrectomy. ALLERGIES: To ASPIRIN. MEDICATIONS: List was reviewed. HOME MEDICATIONS: List was likewise reviewed. SOCIAL HISTORY: She quit tobacco. REVIEW OF SYSTEMS: As indicated above, otherwise, a 10-point system was reviewed and negative. PHYSICAL EXAMINATION: GENERAL: The patient was in no respiratory distress. VITAL SIGNS: O2 saturation currently on 2 liters was greater than 92%. HEENT: Eyes, the sclerae were nonicteric. NECK: Jugular venous distention was not elevated. No lymphadenopathy. CHEST: Full expansion. LUNGS: Adequate airway flow. No wheezes. CARDIOVASCULAR: Regular rate and rhythm with S1 and S2. No S3. ABDOMEN: Soft and nontender. EXTREMITIES: No clubbing, cyanosis or edema. LABORATORY DATA: Labs were reviewed. White count was normal. Hemoglobin and hematocrit were noted. Urine drug screen was positive for opiates. RADIOLOGICAL DATA: CT abdomen and pelvis as documented above. IMPRESSION: 1. Abnormal CT abdomen revealing basilar opacities compatible with possible pneumonia. 2. Acute exacerbation of chronic obstructive pulmonary disease. 3. Severe scoliosis. 4. Nausea and vomiting per gastrointestinal service. PLAN: 1. Continue current antibiotics. 2. Oxygen supplementation. 3. Follow GI's recommendation. 4. A 6-minute walk prior to discharge. I do appreciate the privilege in sharing in the patient's care. RUSSELL ROBERTSON MD DR: Silvana JOB#: [id number] / [id number]
[2018-07-26] MEDS: LOSARTAN POTASSIUM 50 MG TABLET. PO SCH (10:54)
[2018-07-26 11:00] VITALS: BP 113/70
--- NOTE | 2018-07-26 11:33 | PDOC ---
PROGRESS NOTES Chief Complaint Chief Complaint diarrhea, SOB History of Present Illness History of Present Illness Patient ambulating room, states she wants to go home. Diarrhea has resolved. Vitals Vitals Vital Signs Date Time Temp Pulse Resp B/P (MAP) Pulse Ox O2 Delivery O2 Flow Rate FiO2 07/26/18 10:54 106/64 07/26/18 08:12 95 07/26/18 08:00 Nasal Cannula 1.0 07/26/18 07:10 93 07/26/18 07:00 97.8 18 97.8 Physical Exam General: Alert, Oriented X3, No acute distress, Other (severe scoliosis) Heart: Regular rate, Normal S1, Normal S2, No murmurs Lungs: Crackles Abdomen: Normal bowel sounds, Soft, No tenderness Extremities: No clubbing, No cyanosis, No edema Skin: No rashes, No breakdown, No significant lesion Labs LABS Laboratory Tests Test 07/25/18 16:26 07/25/18 20:56 07/26/18 04:55 07/26/18 07:12 Glucose (Fingerstick) 120 mg/dL (70-99) 179 mg/dL (70-99) 111 mg/dL (70-99) White Blood Count 10.2 x10^3/uL (4.0-11.0) Red Blood Count 3.86 x10^6/uL (3.50-5.40) Hemoglobin 11.0 g/dL (12.0-15.5) Hematocrit 33.1 % (36.0-47.0) Mean Corpuscular Volume 86 fL (79-100) Mean Corpuscular Hemoglobin 28 pg (25-35) Mean Corpuscular Hemoglobin Concent 33 g/dL (31-37) Red Cell Distribution Width 16.9 % (11.5-14.5) Platelet Count 376 x10^3/uL (140-400) Neutrophils (%) (Auto) 81 % (31-73) Lymphocytes (%) (Auto) 8 % (24-48) Monocytes (%) (Auto) 11 % (0-9) Eosinophils (%) (Auto) 0 % (0-3) Basophils (%) (Auto) 0 % (0-3) Neutrophils # (Auto) 8.3 x10^3uL (1.8-7.7) Lymphocytes # (Auto) 0.8 x10^3/uL (1.0-4.8) Monocytes # (Auto) 1.1 x10^3/uL (0.0-1.1) Eosinophils # (Auto) 0.0 x10^3/uL (0.0-0.7) Basophils # (Auto) 0.0 x10^3/uL (0.0-0.2) Sodium Level 140 mmol/L (136-145) Potassium Level 4.5 mmol/L (3.5-5.1) Chloride Level 103 mmol/L (98-107) Carbon Dioxide Level 36 mmol/L (21-32) Anion Gap 1 (6-14) Blood Urea Nitrogen 21 mg/dL (7-20) Creatinine 0.7 mg/dL (0.6-1.0) Estimated GFR (Cockcroft-Gault) 85.1 Glucose Level 110 mg/dL (70-99) Calcium Level 9.1 mg/dL (8.5-10.1) Procalcitonin < 0.10 ng/mL (0.00-0.10) Review of Systems Review of Systems Diarrhea has resolved, some shortness of air better with O2 Assessment and Plan Assessmemt and Plan Problems Medical Problems: (1) Pneumonia Status: Acute Assessment: Acute exacerbation of COPD Possible pneumonia Diarrhea, resolved Gastroparesis Duodenal adenoma, history of Thrombocytosis, resolved ROSSANA, improved Severe Scoliosis Plan: Pulm: Continue abx, O2, 6 min walk prior to discharge - appreciate recs GI: PPI and prn Reglan, stool studies if diarrhea recurring, outpatient scopes - appreciate recs Micro: BCx (07/25): NGTD Antibiotics IV Vanc and Zosyn Plan deescalation of abx to Augmentin 875 mg #14 at discharge, script written, on chart Home medications Script for Proair inhaler #1 on chart Dispo: discharge home when okay with specialties Comment Review of Relevant I have reviewed the following items jose angel (where applicable) has been applied. Labs Laboratory Tests Test 07/24/18 22:00 07/24/18 22:40 07/25/18 01:10 07/25/18 07:21 Urine Opiates Screen Pos (NEG) Urine Methadone Screen Neg (NEG) Urine Barbiturates Neg (NEG) Urine Phencyclidine Screen Neg (NEG) Urine Amphetamine/Methamphetamine Neg (NEG) Urine Benzodiazepines Screen Neg (NEG) Urine Cocaine Screen Neg (NEG) Urine Cannabinoids Screen Neg (NEG) Urine Ethyl Alcohol Neg (NEG) White Blood Count 10.7 x10^3/uL (4.0-11.0) Red Blood Count 4.67 x10^6/uL (3.50-5.40) Hemoglobin 13.1 g/dL (12.0-15.5) Hematocrit 39.9 % (36.0-47.0) Mean Corpuscular Volume 86 fL (79-100) Mean Corpuscular Hemoglobin 28 pg (25-35) Mean Corpuscular Hemoglobin Concent 33 g/dL (31-37) Red Cell Distribution Width 16.8 % (11.5-14.5) Platelet Count 500 x10^3/uL (140-400) Neutrophils (%) (Auto) 70 % (31-73) Lymphocytes (%) (Auto) 14 % (24-48) Monocytes (%) (Auto) 13 % (0-9) Eosinophils (%) (Auto) 3 % (0-3) Basophils (%) (Auto) 1 % (0-3) Neutrophils # (Auto) 7.5 x10^3uL (1.8-7.7) Lymphocytes # (Auto) 1.5 x10^3/uL (1.0-4.8) Monocytes # (Auto) 1.3 x10^3/uL (0.0-1.1) Eosinophils # (Auto) 0.3 x10^3/uL (0.0-0.7) Basophils # (Auto) 0.1 x10^3/uL (0.0-0.2) Sodium Level 138 mmol/L (136-145) Potassium Level 4.2 mmol/L (3.5-5.1) Chloride Level 101 mmol/L (98-107) Carbon Dioxide Level 34 mmol/L (21-32) Anion Gap 3 (6-14) Blood Urea Nitrogen 16 mg/dL (7-20) Creatinine 1.2 mg/dL (0.6-1.0) Estimated GFR (Cockcroft-Gault) 45.7 BUN/Creatinine Ratio 13 (6-20) Glucose Level 124 mg/dL (70-99) Calcium Level 9.5 mg/dL (8.5-10.1) Magnesium Level 1.9 mg/dL (1.8-2.4) Total Bilirubin 0.3 mg/dL (0.2-1.0) Aspartate Amino Transf (AST/SGOT) 10 U/L (15-37) Alanine Aminotransferase (ALT/SGPT) 13 U/L (14-59) Alkaline Phosphatase 97 U/L (46-116) Creatine Kinase 29 U/L (26-192) Creatine Kinase MB (Mass) 0.8 ng/mL (0.0-3.6) Creatine Kinase MB Relative Index % (0-4) Troponin I Quantitative < 0.017 ng/mL (0.000-0.055) RL-Zgn-Y-Type Natriuretic Peptide 155 pg/mL (0-124) Total Protein 7.4 g/dL (6.4-8.2) Albumin 3.5 g/dL (3.4-5.0) Albumin/Globulin Ratio 0.9 (1.0-1.7) Lipase 40 U/L (73-393) Lactic Acid Level 0.5 mmol/L (0.4-2.0) Glucose (Fingerstick) 147 mg/dL (70-99) Test 07/25/18 11:00 07/25/18 16:26 07/25/18 20:56 07/26/18 04:55 Glucose (Fingerstick) 204 mg/dL (70-99) 120 mg/dL (70-99) 179 mg/dL (70-99) White Blood Count 10.2 x10^3/uL (4.0-11.0) Red Blood Count 3.86 x10^6/uL (3.50-5.40) Hemoglobin 11.0 g/dL (12.0-15.5) Hematocrit 33.1 % (36.0-47.0) Mean Corpuscular Volume 86 fL (79-100) Mean Corpuscular Hemoglobin 28 pg (25-35) Mean Corpuscular Hemoglobin Concent 33 g/dL (31-37) Red Cell Distribution Width 16.9 % (11.5-14.5) Platelet Count 376 x10^3/uL (140-400) Neutrophils (%) (Auto) 81 % (31-73) Lymphocytes (%) (Auto) 8 % (24-48) Monocytes (%) (Auto) 11 % (0-9) Eosinophils (%) (Auto) 0 % (0-3) Basophils (%) (Auto) 0 % (0-3) Neutrophils # (Auto) 8.3 x10^3uL (1.8-7.7) Lymphocytes # (Auto) 0.8 x10^3/uL (1.0-4.8) Monocytes # (Auto) 1.1 x10^3/uL (0.0-1.1) Eosinophils # (Auto) 0.0 x10^3/uL (0.0-0.7) Basophils # (Auto) 0.0 x10^3/uL (0.0-0.2) Sodium Level 140 mmol/L (136-145) Potassium Level 4.5 mmol/L (3.5-5.1) Chloride Level 103 mmol/L (98-107) Carbon Dioxide Level 36 mmol/L (21-32) Anion Gap 1 (6-14) Blood Urea Nitrogen 21 mg/dL (7-20) Creatinine 0.7 mg/dL (0.6-1.0) Estimated GFR (Cockcroft-Gault) 85.1 Glucose Level 110 mg/dL (70-99) Calcium Level 9.1 mg/dL (8.5-10.1) Procalcitonin < 0.10 ng/mL (0.00-0.10) Test 07/26/18 07:12 Glucose (Fingerstick) 111 mg/dL (70-99) Laboratory Tests Test 07/25/18 16:26 07/25/18 20:56 07/26/18 04:55 07/26/18 07:12 Glucose (Fingerstick) 120 mg/dL (70-99) 179 mg/dL (70-99) 111 mg/dL (70-99) White Blood Count 10.2 x10^3/uL (4.0-11.0) Red Blood Count 3.86 x10^6/uL (3.50-5.40) Hemoglobin 11.0 g/dL (12.0-15.5) Hematocrit 33.1 % (36.0-47.0) Mean Corpuscular Volume 86 fL (79-100) Mean Corpuscular Hemoglobin 28 pg (25-35) Mean Corpuscular Hemoglobin Concent 33 g/dL (31-37) Red Cell Distribution Width 16.9 % (11.5-14.5) Platelet Count 376 x10^3/uL (140-400) Neutrophils (%) (Auto) 81 % (31-73) Lymphocytes (%) (Auto) 8 % (24-48) Monocytes (%) (Auto) 11 % (0-9) Eosinophils (%) (Auto) 0 % (0-3) Basophils (%) (Auto) 0 % (0-3) Neutrophils # (Auto) 8.3 x10^3uL (1.8-7.7) Lymphocytes # (Auto) 0.8 x10^3/uL (1.0-4.8) Monocytes # (Auto) 1.1 x10^3/uL (0.0-1.1) Eosinophils # (Auto) 0.0 x10^3/uL (0.0-0.7) Basophils # (Auto) 0.0 x10^3/uL (0.0-0.2) Sodium Level 140 mmol/L (136-145) Potassium Level 4.5 mmol/L (3.5-5.1) Chloride Level 103 mmol/L (98-107) Carbon Dioxide Level 36 mmol/L (21-32) Anion Gap 1 (6-14) Blood Urea Nitrogen 21 mg/dL (7-20) Creatinine 0.7 mg/dL (0.6-1.0) Estimated GFR (Cockcroft-Gault) 85.1 Glucose Level 110 mg/dL (70-99) Calcium Level 9.1 mg/dL (8.5-10.1) Procalcitonin < 0.10 ng/mL (0.00-0.10) Microbiology 07/25/18 Blood Culture - Preliminary, Resulted NO GROWTH AFTER 1 DAY Medications Current Medications Albuterol/ Ipratropium (Duoneb) 3 ml 1X ONCE NEB Last administered on 07/24/18at 22:23; Start 07/24/18 at 22:30; Stop 07/24/18 at 22:31; Status DC Methylprednisolone Sodium Succinate (SOLU-Medrol 125MG VIAL) 125 mg 1X ONCE IV Last administered on 07/24/18at 22:41; Start 07/24/18 at 22:30; Stop 07/24/18 at 22:31; Status DC Famotidine (Pepcid Vial) 20 mg 1X ONCE IVP Last administered on 07/24/18at 22:42; Start 07/24/18 at 22:30; Stop 07/24/18 at 22:31; Status DC Ondansetron HCl (Zofran) 4 mg 1X ONCE IV Last administered on 07/24/18at 22:42; Start 07/24/18 at 22:30; Stop 07/24/18 at 22:31; Status DC Iohexol (Omnipaque 300 Mg/ml) 60 ml 1X ONCE IV Last administered on 07/24/18at 23:24; Start 07/24/18 at 23:15; Stop 07/24/18 at 23:16; Status DC Info (CONTRAST GIVEN -- Rx MONITORING) 1 each PRN DAILY PRN MC SEE COMMENTS; Start 07/24/18 at 23:15; Stop 07/26/18 at 23:14 Vancomycin HCl (Vanco Per Pharmacy) 1 each PRN DAILY PRN MC SEE COMMENTS Last administered on 07/25/18at 02:06; Start 07/25/18 at 00:30; Stop 07/25/18 at 18:17; Status DC Piperacillin Sod/ Tazobactam Sod (Zosyn Per Pharmacy) 1 each PRN DAILY PRN MC SEE COMMENTS; Start 07/25/18 at 00:30 Albuterol/ Ipratropium (Duoneb) 3 ml RTQID NEB Last administered on 07/25/18at 19:30; Start 07/25/18 at 08:00; Stop 07/26/18 at 07:59; Status DC Vancomycin HCl 1.25 gm/Sodium Chloride 250 ml @ 166.667 mls/hr 1X ONCE IV Last administered on 07/25/18at 01:50; Start 07/25/18 at 00:30; Stop 07/25/18 at 01:59; Status DC Piperacillin Sod/ Tazobactam Sod 2.25 gm/Sodium Chloride 50 ml @ 100 mls/hr 1X ONCE IV Last administered on 07/25/18at 00:47; Start 07/25/18 at 00:30; Stop 07/25/18 at 00:59; Status DC Piperacillin Sod/ Tazobactam Sod 2.25 gm/Sodium Chloride 50 ml @ 100 mls/hr Q6HRS IV Last administered on 07/26/18at 05:56; Start 07/25/18 at 06:00 Vancomycin HCl 750 mg/Sodium Chloride 250 ml @ 250 mls/hr Q24H IV ; Start 07/26/18 at 02:00; Stop 07/26/18 at 02:00; Status DC Vancomycin HCl (Vancomycin Trough Level) 1 each 1X ONCE MC ; Start 07/27/18 at 01:30; Stop 07/27/18 at 01:30; Status DC Acetaminophen/ Hydrocodone Bitart (Lortab 5/325) 1 tab PRN Q4HRS PRN PO PAIN Last administered on 07/25/18at 20:53; Start 07/25/18 at 03:45 Albuterol Sulfate (Ventolin Neb Soln) 2.5 mg BID NEB ; Start 07/25/18 at 21:00; Status Cancel Albuterol Sulfate (Ventolin Neb Soln) 2.5 mg PRN Q4HRS PRN NEB SHORTNESS OF BREATH; Start 07/25/18 at 10:45 Guaifenesin (Mucinex) 600 mg BID PO Last administered on 07/26/18at 08:13; Start 07/25/18 at 21:00 Lactobacillus Rhamnosus (Culturelle) 1 cap BID PO ; Start 07/25/18 at 21:00; Status Cancel Losartan Potassium (Cozaar) 50 mg DAILY PO ; Start 07/25/18 at 11:00 Metoclopramide HCl (Reglan) 5 mg PRN BFRMEALHC PRN PO NAUSEA/VOMITING; Start 07/25/18 at 10:45 Simvastatin (Zocor) 10 mg HS PO Last administered on 07/25/18at 20:45; Start 07/25/18 at 21:00 Amlodipine Besylate (Norvasc) 2.5 mg DAILY PO Last administered on 07/26/18at 08:12; Start 07/25/18 at 11:00 Benzonatate (Tessalon [place]) 100 mg [id number] PO Last administered on 07/26/18at 08:13; Start 07/25/18 at 14:00 Ergocalciferol (Vitamin D2) 50,000 unit WEEKLY PO ; Start 08/01/18 at 09:00 Diltiazem HCl (Cardizem 24hr Cd) 120 mg DAILY PO Last administered on 07/26/18 08:12; Start 07/25/18 at 11:00 Montelukast Sodium (Singulair) 10 mg QHS PO Last administered on 07/25/18at 20:45; Start 07/25/18 at 21:00 Ondansetron HCl (Zofran Odt) 4 mg PRN Q8HRS PRN PO NAUSEA/VOMITING; Start 07/25/18 at 11:00 Oxybutynin Chloride (Ditropan) 5 mg [id number] PO Last administered on 07/26/18 08:11; Start 07/25/18 at 14:00 Pantoprazole Sodium (Protonix) 40 mg DAILYAC PO Last administered on 07/26/18 08:11; Start 07/25/18 at 11:00 Non-Formulary Medication (Tiotropium [place] (Spiriva)) 18 mcg DAILY IH ; Start 07/26/18 at 09:00; Status UNV Budesonide (Pulmicort) 0.5 mg RTBID NEB Last administered on 07/26/18 07:09; Start 07/25/18 at 20:00 Albuterol/ Ipratropium (Duoneb) 3 ml RTQID NEB Last administered on 07/26/18at 1 1:12; Start 07/26/18 at 08:00 Lactobacillus Rhamnosus (Culturelle) 1 cap BID PO Last administered on 07/26/18at 08:11; Start 07/25/18 at 21:00 Active Scripts Active Prednisone 20 Mg Tablet 1 Tab PO DAILY 5 Days Culturelle (Lactobacillus Rhamnosus Gg) 1 Each Cap.sprink 1 Cap PO BID 7 Days Augmentin 500-125 Tablet (Amoxicillin/Potassium Clav) 1 Each Tablet 1 Tab PO BID 7 Days Metoclopramide Hcl 5 Mg Tablet 5 Mg PO PRN BFRMEALHC PRN Protonix (Pantoprazole Sodium) 40 Mg Granpkt.dr 40 Mg PO DAILY 30 Days Zofran (Ondansetron Hcl) 4 Mg Tablet 1 Tab PO Q8HRS PRN Reported Amlodipine Besylate 2.5 Mg Tablet 2.5 Mg PO DAILY Benzonatate 100 Mg Capsule 1 Cap PO TID Albuterol Sulfate Neb Soln (Albuterol Sulfate) 2.5 Mg/3 Ml Vial.neb 1 Vial NEB BID Albuterol Sulfate Neb Soln (Albuterol Sulfate) 2.5 Mg/3 Ml Vial.neb 1 Vial NEB PRN Q4HRS Mucinex (Guaifenesin) 600 Mg Tablet.er 1 Tab PO BID Vitamin D (Cholecalciferol (Vitamin D3)) 50,000 Unit Capsule 50,000 Unit PO WEEKLY Ditropan Xl (Oxybutynin Chloride) 5 Mg Tab.er.24 5 Mg PO DAILY Losartan Potassium 50 Mg Tablet 50 Mg PO DAILY Simvastatin 10 Mg Tablet 10 Mg PO HS Proair Hfa Inhaler (Albuterol Sulfate) 8.5 Gm Hfa.aer.ad 17 Gm IH Q4HRS W/A PRN Spiriva (Tiotropium [place]) 18 Mcg Cap.w.dev 18 Mcg IH DAILY Singulair Tablet (Montelukast Sodium) 10 Mg Tablet 10 Mg PO HS Diltiazem 24HR Cd (Diltiazem Hcl) 120 Mg Cap.er.24h 120 Mg PO DAILY Vitals/I & O Vital Sign - Last 24 Hours 07/25/18 07/25/18 07/25/18 07/25/18 12:38 15:00 15:29 19:00 Temp 97.8 98.1 97.8 98.1 Pulse 109 111 106 Resp 18 20 B/P (MAP) 105/69 118/61 (80) 109/74 (86) Pulse Ox 94 93 95 O2 Delivery Nasal Cannula Nasal Cannula Nasal Cannula O2 Flow Rate 2.0 1.0 2.0 07/25/18 07/25/18 07/25/18 07/25/18 19:30 20:00 20:53 21:53 Pulse Ox 94 O2 Delivery Nasal Cannula Nasal Cannula Nasal Cannula Nasal Cannula O2 Flow Rate 1.0 2.0 2.0 2.0 07/25/18 07/26/18 07/26/18 07/26/18 23:00 03:00 07:00 07:10 Temp 98.0 97.8 97.8 98.0 97.8 97.8 Pulse 101 100 95 Resp 20 18 18 B/P (MAP) 113/71 (85) 108/66 (80) 114/72 (86) Pulse Ox 96 95 99 93 O2 Delivery Nasal Cannula Nasal Cannula Nasal Cannula Nasal Cannula O2 Flow Rate 2.0 2.0 2.0 1.0 07/26/18 07/26/18 07/26/1807/26/19 08:00 08:12 08:12 10:54 Pulse 95 95 B/P (MAP) 114/72 114/72 106/64 O2 Delivery Nasal Cannula O2 Flow Rate 1.0 Intake and Output 07/25/18 07/25/18 07/26/18 15:00 23:00 07:00 Intake Total 600 ml 500 ml 350 ml Balance 600 ml 500 ml 350 ml DAYLIN ANDINO III DO Jul 26, 2018 11:33
--- NOTE | 2018-07-26 12:16 | PDOC ---
Subjective: Subjective: Tolerating PO w/o n/v, abd pain, or diarrhea. Objective: Objective: Reviewed w/ RN - ?DC Hasn't needed Reglan. Vital Signs: Vital Signs Date Time Temp Pulse Resp B/P (MAP) Pulse Ox O2 Delivery O2 Flow Rate FiO2 07/26/18 11:00 97.7 99 18 113/70 (84) 96 Nasal Cannula 2.0 97.7 Labs: Laboratory Tests Test 07/25/18 16:26 07/25/18 20:56 07/26/18 04:55 07/26/18 07:12 Glucose (Fingerstick) 120 mg/dL 179 mg/dL 111 mg/dL White Blood Count 10.2 x10^3/uL Red Blood Count 3.86 x10^6/uL Hemoglobin 11.0 g/dL Hematocrit 33.1 % Mean Corpuscular Volume 86 fL Mean Corpuscular Hemoglobin 28 pg Mean Corpuscular Hemoglobin Concent 33 g/dL Red Cell Distribution Width 16.9 % Platelet Count 376 x10^3/uL Neutrophils (%) (Auto) 81 % Lymphocytes (%) (Auto) 8 % Monocytes (%) (Auto) 11 % Eosinophils (%) (Auto) 0 % Basophils (%) (Auto) 0 % Neutrophils # (Auto) 8.3 x10^3uL Lymphocytes # (Auto) 0.8 x10^3/uL Monocytes # (Auto) 1.1 x10^3/uL Eosinophils # (Auto) 0.0 x10^3/uL Basophils # (Auto) 0.0 x10^3/uL Sodium Level 140 mmol/L Potassium Level 4.5 mmol/L Chloride Level 103 mmol/L Carbon Dioxide Level 36 mmol/L Anion Gap 1 Blood Urea Nitrogen 21 mg/dL Creatinine 0.7 mg/dL Estimated GFR (Cockcroft-Gault) 85.1 Glucose Level 110 mg/dL Calcium Level 9.1 mg/dL Procalcitonin < 0.10 ng/mL Test 07/26/18 11:21 Glucose (Fingerstick) 87 mg/dL BLOOD CULTURE Preliminary NO GROWTH AFTER 1 DAY PE: GEN: NAD LUNGS: CTAB HEART: RRR ABD: NABS, S/ND/NT NEURO/PSYCH: A & O 3 A/P: Abd pain, n/v, diarrhea - resolved, h/o gastroparesis -- DC per primary on PPI and Miralax PRN. Check anemia parameters for completeness. Follow-up for EGD (h/o duodenal adenoma) and colonoscopy (?due for screening). JOY NIEVES Jul 26, 2018 12:16
--- NOTE | 2018-07-26 12:27 | PDOC ---
PULMONARY PROGRESS NOTES Subjective Patient is up in chair eating lunch, without distress. PT. appears comfortable on 2 liter N/C. PT. denies SOB, cough, abdominal pain, N/V, or change in bowel. Vitals Laboratory Tests Test 07/25/18 16:26 07/25/18 20:56 07/26/18 04:55 07/26/18 07:12 Glucose (Fingerstick) 120 mg/dL 179 mg/dL 111 mg/dL White Blood Count 10.2 x10^3/uL Red Blood Count 3.86 x10^6/uL Hemoglobin 11.0 g/dL Hematocrit 33.1 % Mean Corpuscular Volume 86 fL Mean Corpuscular Hemoglobin 28 pg Mean Corpuscular Hemoglobin Concent 33 g/dL Red Cell Distribution Width 16.9 % Platelet Count 376 x10^3/uL Neutrophils (%) (Auto) 81 % Lymphocytes (%) (Auto) 8 % Monocytes (%) (Auto) 11 % Eosinophils (%) (Auto) 0 % Basophils (%) (Auto) 0 % Neutrophils # (Auto) 8.3 x10^3uL Lymphocytes # (Auto) 0.8 x10^3/uL Monocytes # (Auto) 1.1 x10^3/uL Eosinophils # (Auto) 0.0 x10^3/uL Basophils # (Auto) 0.0 x10^3/uL Sodium Level 140 mmol/L Potassium Level 4.5 mmol/L Chloride Level 103 mmol/L Carbon Dioxide Level 36 mmol/L Anion Gap 1 Blood Urea Nitrogen 21 mg/dL Creatinine 0.7 mg/dL Estimated GFR (Cockcroft-Gault) 85.1 Glucose Level 110 mg/dL Calcium Level 9.1 mg/dL Procalcitonin < 0.10 ng/mL Test 07/26/18 11:21 Glucose (Fingerstick) 87 mg/dL Current Medications Medications (Trade) Dose Ordered Sig/Thanh Route PRN Reason Start Time Stop Time Status Last Admin Dose Admin Albuterol/ Ipratropium (Duoneb) 3 ml 1X ONCE NEB 07/24/18 22:30 07/24/18 22:31 DC 07/24/18 22:23 Methylprednisolone Sodium Succinate (SOLU-Medrol 125MG VIAL) 125 mg 1X ONCE IV 07/24/18 22:30 07/24/18 22:31 DC 07/24/18 22:41 Famotidine (Pepcid Vial) 20 mg 1X ONCE IVP 07/24/18 22:30 07/24/18 22:31 DC 07/24/18 22:42 Ondansetron HCl (Zofran) 4 mg 1X ONCE IV 07/24/18 22:30 07/24/18 22:31 DC 07/24/18 22:42 Iohexol (Omnipaque 300 Mg/ml) 60 ml 1X ONCE IV 07/24/18 23:15 07/24/18 23:16 DC 07/24/18 23:24 Info (CONTRAST GIVEN -- Rx MONITORING) 1 each PRN DAILY PRN MC SEE COMMENTS 07/24/18 23:15 07/26/18 23:14 Vancomycin HCl (Vanco Per Pharmacy) 1 each PRN DAILY PRN MC SEE COMMENTS 07/25/18 00:30 07/25/18 18:17 DC 07/25/18 02:06 Piperacillin Sod/ Tazobactam Sod (Zosyn Per Pharmacy) 1 each PRN DAILY PRN MC SEE COMMENTS 07/25/18 00:30 Albuterol/ Ipratropium (Duoneb) 3 ml RTQID NEB 07/25/18 08:00 07/26/18 07:59 DC 07/25/18 19:30 Vancomycin HCl 1.25 gm/Sodium Chloride 250 ml @ 166.667 mls/hr 1X ONCE IV 07/25/18 00:30 07/25/18 01:59 DC 07/25/18 01:50 Piperacillin Sod/ Tazobactam Sod 2.25 gm/Sodium Chloride 50 ml @ 100 mls/hr 1X ONCE IV 07/25/18 00:30 07/25/18 00:59 DC 07/25/18 00:47 Piperacillin Sod/ Tazobactam Sod 2.25 gm/Sodium Chloride 50 ml @ 100 mls/hr Q6HRS IV 07/25/18 06:00 07/26/18 05:56 Vancomycin HCl 750 mg/Sodium Chloride 250 ml @ 250 mls/hr Q24H IV 07/26/18 02:00 07/26/18 02:00 DC Vancomycin HCl (Vancomycin Trough Level) 1 each 1X ONCE MC 07/27/18 01:30 07/27/18 01:30 DC Acetaminophen/ Hydrocodone Bitart (Lortab 5/325) 1 tab PRN Q4HRS PRN PO PAIN 07/25/18 03:45 07/25/18 20:53 Albuterol Sulfate (Ventolin Neb Soln) 2.5 mg BID NEB 07/25/18 21:00 Cancel Albuterol Sulfate (Ventolin Neb Soln) 2.5 mg PRN Q4HRS PRN NEB SHORTNESS OF BREATH 07/25/18 10:45 Guaifenesin (Mucinex) 600 mg BID PO 07/25/18 21:00 07/26/18 08:13 Lactobacillus Rhamnosus (Culturelle) 1 cap BID PO 07/25/18 21:00 Cancel Losartan Potassium (Cozaar) 50 mg DAILY PO 07/25/18 11:00 Metoclopramide HCl (Reglan) 5 mg PRN BFRMEALHC PRN PO NAUSEA/VOMITING 07/25/18 10:45 Simvastatin (Zocor) 10 mg HS PO 07/25/18 21:00 07/25/18 20:45 Amlodipine Besylate (Norvasc) 2.5 mg DAILY PO 07/25/18 11:00 07/26/18 08:12 Benzonatate (Tessalon Perle) 100 mg [id number] PO 07/25/18 14:00 07/26/18 08:13 Ergocalciferol (Vitamin D2) 50,000 unit WEEKLY PO 08/01/18 09:00 Diltiazem HCl (Cardizem 24hr Cd) 120 mg DAILY PO 07/25/18 11:00 07/26/18 08:12 Montelukast Sodium (Singulair) 10 mg QHS PO 07/25/18 21:00 07/25/18 20:45 Ondansetron HCl (Zofran Odt) 4 mg PRN Q8HRS PRN PO NAUSEA/VOMITING 07/25/18 11:00 Oxybutynin Chloride (Ditropan) 5 mg [id number] PO 07/25/18 14:00 07/26/18 08:11 Pantoprazole Sodium (Protonix) 40 mg DAILYAC PO 07/25/18 11:00 07/26/18 08:11 Non-Formulary Medication (Tiotropium [place] (Spiriva)) 18 mcg DAILY IH 07/26/18 09:00 UNV Budesonide (Pulmicort) 0.5 mg RTBID NEB 07/25/18 20:00 07/26/18 07:09 Albuterol/ Ipratropium (Duoneb) 3 ml RTQID NEB 07/26/18 08:00 07/26/18 11:12 Lactobacillus Rhamnosus (Culturelle) 1 cap BID PO 07/25/18 21:00 07/26/18 08:11 Vital Signs Date Time Temp Pulse Resp B/P (MAP) Pulse Ox O2 Delivery O2 Flow Rate FiO2 07/26/18 11:00 97.7 99 18 113/70 (84) 96 Nasal Cannula 2.0 97.7 ROS: No Nausea, No Chest Pain, No Abdominal Pain, No Increase Cough General: Alert, Oriented X4, No acute distress Lungs: Clear Cardiovascular: S1, S2 Abdomen: Soft, Non-tender Neuro Exam: Alert, Oriented Extremities: No Edema Skin: Warm, Dry Labs Laboratory Tests Test 07/25/18 16:26 07/25/18 20:56 07/26/18 04:55 07/26/18 07:12 Glucose (Fingerstick) 120 mg/dL 179 mg/dL 111 mg/dL White Blood Count 10.2 x10^3/uL Red Blood Count 3.86 x10^6/uL Hemoglobin 11.0 g/dL Hematocrit 33.1 % Mean Corpuscular Volume 86 fL Mean Corpuscular Hemoglobin 28 pg Mean Corpuscular Hemoglobin Concent 33 g/dL Red Cell Distribution Width 16.9 % Platelet Count 376 x10^3/uL Neutrophils (%) (Auto) 81 % Lymphocytes (%) (Auto) 8 % Monocytes (%) (Auto) 11 % Eosinophils (%) (Auto) 0 % Basophils (%) (Auto) 0 % Neutrophils # (Auto) 8.3 x10^3uL Lymphocytes # (Auto) 0.8 x10^3/uL Monocytes # (Auto) 1.1 x10^3/uL Eosinophils # (Auto) 0.0 x10^3/uL Basophils # (Auto) 0.0 x10^3/uL Sodium Level 140 mmol/L Potassium Level 4.5 mmol/L Chloride Level 103 mmol/L Carbon Dioxide Level 36 mmol/L Anion Gap 1 Blood Urea Nitrogen 21 mg/dL Creatinine 0.7 mg/dL Estimated GFR (Cockcroft-Gault) 85.1 Glucose Level 110 mg/dL Calcium Level 9.1 mg/dL Procalcitonin < 0.10 ng/mL Test 07/26/18 11:21 Glucose (Fingerstick) 87 mg/dL Current Medications Medications (Trade) Dose Ordered Sig/Thanh Route PRN Reason Start Time Stop Time Status Last Admin Dose Admin Albuterol/ Ipratropium (Duoneb) 3 ml 1X ONCE NEB 07/24/18 22:30 07/24/18 22:31 DC 07/24/18 22:23 Methylprednisolone Sodium Succinate (SOLU-Medrol 125MG VIAL) 125 mg 1X ONCE IV 07/24/18 22:30 07/24/18 22:31 DC 07/24/18 22:41 Famotidine (Pepcid Vial) 20 mg 1X ONCE IVP 07/24/18 22:30 07/24/18 22:31 DC 07/24/18 22:42 Ondansetron HCl (Zofran) 4 mg 1X ONCE IV 07/24/18 22:30 07/24/18 22:31 DC 07/24/18 22:42 Iohexol (Omnipaque 300 Mg/ml) 60 ml 1X ONCE IV 07/24/18 23:15 07/24/18 23:16 DC 07/24/18 23:24 Info (CONTRAST GIVEN -- Rx MONITORING) 1 each PRN DAILY PRN MC SEE COMMENTS 07/24/18 23:15 07/26/18 23:14 Vancomycin HCl (Vanco Per Pharmacy) 1 each PRN DAILY PRN MC SEE COMMENTS 07/25/18 00:30 07/25/18 18:17 DC 07/25/18 02:06 Piperacillin Sod/ Tazobactam Sod (Zosyn Per Pharmacy) 1 each PRN DAILY PRN MC SEE COMMENTS 07/25/18 00:30 Albuterol/ Ipratropium (Duoneb) 3 ml RTQID NEB 07/25/18 08:00 07/26/18 07:59 DC 07/25/18 19:30 Vancomycin HCl 1.25 gm/Sodium Chloride 250 ml @ 166.667 mls/hr 1X ONCE IV 07/25/18 00:30 07/25/18 01:59 DC 07/25/18 01:50 Piperacillin Sod/ Tazobactam Sod 2.25 gm/Sodium Chloride 50 ml @ 100 mls/hr 1X ONCE IV 07/25/18 00:30 07/25/18 00:59 DC 07/25/18 00:47 Piperacillin Sod/ Tazobactam Sod 2.25 gm/Sodium Chloride 50 ml @ 100 mls/hr Q6HRS IV 07/25/18 06:00 07/26/18 05:56 Vancomycin HCl 750 mg/Sodium Chloride 250 ml @ 250 mls/hr Q24H IV 07/26/18 02:00 07/26/18 02:00 DC Vancomycin HCl (Vancomycin Trough Level) 1 each 1X ONCE MC 07/27/18 01:30 07/27/18 01:30 DC Acetaminophen/ Hydrocodone Bitart (Lortab 5/325) 1 tab PRN Q4HRS PRN PO PAIN 07/25/18 03:45 07/25/18 20:53 Albuterol Sulfate (Ventolin Neb Soln) 2.5 mg BID NEB 07/25/18 21:00 Cancel Albuterol Sulfate (Ventolin Neb Soln) 2.5 mg PRN Q4HRS PRN NEB SHORTNESS OF BREATH 07/25/18 10:45 Guaifenesin (Mucinex) 600 mg BID PO 07/25/18 21:00 07/26/18 08:13 Lactobacillus Rhamnosus (Culturelle) 1 cap BID PO 07/25/18 21:00 Cancel Losartan Potassium (Cozaar) 50 mg DAILY PO 07/25/18 11:00 Metoclopramide HCl (Reglan) 5 mg PRN BFRMEALHC PRN PO NAUSEA/VOMITING 07/25/18 10:45 Simvastatin (Zocor) 10 mg HS PO 07/25/18 21:00 07/25/18 20:45 Amlodipine Besylate (Norvasc) 2.5 mg DAILY PO 07/25/18 11:00 07/26/18 08:12 Benzonatate (Tessalon Perle) 100 mg [id number] PO 07/25/18 14:00 07/26/18 08:13 Ergocalciferol (Vitamin D2) 50,000 unit WEEKLY PO 08/01/18 09:00 Diltiazem HCl (Cardizem 24hr Cd) 120 mg DAILY PO 07/25/18 11:00 07/26/18 08:12 Montelukast Sodium (Singulair) 10 mg QHS PO 07/25/18 21:00 07/25/18 20:45 Ondansetron HCl (Zofran Odt) 4 mg PRN Q8HRS PRN PO NAUSEA/VOMITING 07/25/18 11:00 Oxybutynin Chloride (Ditropan) 5 mg [id number] PO 07/25/18 14:00 07/26/18 08:11 Pantoprazole Sodium (Protonix) 40 mg DAILYAC PO 07/25/18 11:00 07/26/18 08:11 Non-Formulary Medication (Tiotropium [place] (Spiriva)) 18 mcg DAILY IH 07/26/18 09:00 UNV Budesonide (Pulmicort) 0.5 mg RTBID NEB 07/25/18 20:00 07/26/18 07:09 Albuterol/ Ipratropium (Duoneb) 3 ml RTQID NEB 07/26/18 08:00 07/26/18 11:12 Lactobacillus Rhamnosus (Culturelle) 1 cap BID PO 07/25/18 21:00 07/26/18 08:11 Laboratory Tests Test 07/24/18 22:00 07/24/18 22:40 07/25/18 01:10 07/25/18 07:21 Urine Opiates Screen Pos (NEG) Urine Methadone Screen Neg (NEG) Urine Barbiturates Neg (NEG) Urine Phencyclidine Screen Neg (NEG) Urine Amphetamine/Methamphetamine Neg (NEG) Urine Benzodiazepines Screen Neg (NEG) Urine Cocaine Screen Neg (NEG) Urine Cannabinoids Screen Neg (NEG) Urine Ethyl Alcohol Neg (NEG) White Blood Count 10.7 x10^3/uL (4.0-11.0) Red Blood Count 4.67 x10^6/uL (3.50-5.40) Hemoglobin 13.1 g/dL (12.0-15.5) Hematocrit 39.9 % (36.0-47.0) Mean Corpuscular Volume 86 fL (79-100) Mean Corpuscular Hemoglobin 28 pg (25-35) Mean Corpuscular Hemoglobin Concent 33 g/dL (31-37) Red Cell Distribution Width 16.8 % (11.5-14.5) Platelet Count 500 x10^3/uL (140-400) Neutrophils (%) (Auto) 70 % (31-73) Lymphocytes (%) (Auto) 14 % (24-48) Monocytes (%) (Auto) 13 % (0-9) Eosinophils (%) (Auto) 3 % (0-3) Basophils (%) (Auto) 1 % (0-3) Neutrophils # (Auto) 7.5 x10^3uL (1.8-7.7) Lymphocytes # (Auto) 1.5 x10^3/uL (1.0-4.8) Monocytes # (Auto) 1.3 x10^3/uL (0.0-1.1) Eosinophils # (Auto) 0.3 x10^3/uL (0.0-0.7) Basophils # (Auto) 0.1 x10^3/uL (0.0-0.2) Sodium Level 138 mmol/L (136-145) Potassium Level 4.2 mmol/L (3.5-5.1) Chloride Level 101 mmol/L (98-107) Carbon Dioxide Level 34 mmol/L (21-32) Anion Gap 3 (6-14) Blood Urea Nitrogen 16 mg/dL (7-20) Creatinine 1.2 mg/dL (0.6-1.0) Estimated GFR (Cockcroft-Gault) 45.7 BUN/Creatinine Ratio 13 (6-20) Glucose Level 124 mg/dL (70-99) Calcium Level 9.5 mg/dL (8.5-10.1) Magnesium Level 1.9 mg/dL (1.8-2.4) Total Bilirubin 0.3 mg/dL (0.2-1.0) Aspartate Amino Transf (AST/SGOT) 10 U/L (15-37) Alanine Aminotransferase (ALT/SGPT) 13 U/L (14-59) Alkaline Phosphatase 97 U/L (46-116) Creatine Kinase 29 U/L (26-192) Creatine Kinase MB (Mass) 0.8 ng/mL (0.0-3.6) Creatine Kinase MB Relative Index % (0-4) Troponin I Quantitative < 0.017 ng/mL (0.000-0.055) RA-[id number]-Type Natriuretic Peptide 155 pg/mL (0-124) Total Protein 7.4 g/dL (6.4-8.2) Albumin 3.5 g/dL (3.4-5.0) Albumin/Globulin Ratio 0.9 (1.0-1.7) Lipase 40 U/L (73-393) Lactic Acid Level 0.5 mmol/L (0.4-2.0) Glucose (Fingerstick) 147 mg/dL (70-99) Test 07/25/18 11:00 07/25/18 16:26 07/25/18 20:56 07/26/18 04:55 Glucose (Fingerstick) 204 mg/dL (70-99) 120 mg/dL (70-99) 179 mg/dL (70-99) White Blood Count 10.2 x10^3/uL (4.0-11.0) Red Blood Count 3.86 x10^6/uL (3.50-5.40) Hemoglobin 11.0 g/dL (12.0-15.5) Hematocrit 33.1 % (36.0-47.0) Mean Corpuscular Volume 86 fL (79-100) Mean Corpuscular Hemoglobin 28 pg (25-35) Mean Corpuscular Hemoglobin Concent 33 g/dL (31-37) Red Cell Distribution Width 16.9 % (11.5-14.5) Platelet Count 376 x10^3/uL (140-400) Neutrophils (%) (Auto) 81 % (31-73) Lymphocytes (%) (Auto) 8 % (24-48) Monocytes (%) (Auto) 11 % (0-9) Eosinophils (%) (Auto) 0 % (0-3) Basophils (%) (Auto) 0 % (0-3) Neutrophils # (Auto) 8.3 x10^3uL (1.8-7.7) Lymphocytes # (Auto) 0.8 x10^3/uL (1.0-4.8) Monocytes # (Auto) 1.1 x10^3/uL (0.0-1.1) Eosinophils # (Auto) 0.0 x10^3/uL (0.0-0.7) Basophils # (Auto) 0.0 x10^3/uL (0.0-0.2) Sodium Level 140 mmol/L (136-145) Potassium Level 4.5 mmol/L (3.5-5.1) Chloride Level 103 mmol/L (98-107) Carbon Dioxide Level 36 mmol/L (21-32) Anion Gap 1 (6-14) Blood Urea Nitrogen 21 mg/dL (7-20) Creatinine 0.7 mg/dL (0.6-1.0) Estimated GFR (Cockcroft-Gault) 85.1 Glucose Level 110 mg/dL (70-99) Calcium Level 9.1 mg/dL (8.5-10.1) Procalcitonin < 0.10 ng/mL (0.00-0.10) Test 07/26/18 07:12 07/26/18 11:21 Glucose (Fingerstick) 111 mg/dL (70-99) 87 mg/dL (70-99) Laboratory Tests Test 07/25/18 16:26 07/25/18 20:56 07/26/18 04:55 07/26/18 07:12 Glucose (Fingerstick) 120 mg/dL (70-99) 179 mg/dL (70-99) 111 mg/dL (70-99) White Blood Count 10.2 x10^3/uL (4.0-11.0) Red Blood Count 3.86 x10^6/uL (3.50-5.40) Hemoglobin 11.0 g/dL (12.0-15.5) Hematocrit 33.1 % (36.0-47.0) Mean Corpuscular Volume 86 fL (79-100) Mean Corpuscular Hemoglobin 28 pg (25-35) Mean Corpuscular Hemoglobin Concent 33 g/dL (31-37) Red Cell Distribution Width 16.9 % (11.5-14.5) Platelet Count 376 x10^3/uL (140-400) Neutrophils (%) (Auto) 81 % (31-73) Lymphocytes (%) (Auto) 8 % (24-48) Monocytes (%) (Auto) 11 % (0-9) Eosinophils (%) (Auto) 0 % (0-3) Basophils (%) (Auto) 0 % (0-3) Neutrophils # (Auto) 8.3 x10^3uL (1.8-7.7) Lymphocytes # (Auto) 0.8 x10^3/uL (1.0-4.8) Monocytes # (Auto) 1.1 x10^3/uL (0.0-1.1) Eosinophils # (Auto) 0.0 x10^3/uL (0.0-0.7) Basophils # (Auto) 0.0 x10^3/uL (0.0-0.2) Sodium Level 140 mmol/L (136-145) Potassium Level 4.5 mmol/L (3.5-5.1) Chloride Level 103 mmol/L (98-107) Carbon Dioxide Level 36 mmol/L (21-32) Anion Gap 1 (6-14) Blood Urea Nitrogen 21 mg/dL (7-20) Creatinine 0.7 mg/dL (0.6-1.0) Estimated GFR (Cockcroft-Gault) 85.1 Glucose Level 110 mg/dL (70-99) Calcium Level 9.1 mg/dL (8.5-10.1) Procalcitonin < 0.10 ng/mL (0.00-0.10) Test 07/26/18 11:21 Glucose (Fingerstick) 87 mg/dL (70-99) Medications Active Scripts Medications Dose Route/Sig Max Daily Dose Days Date Category Amlodipine Besylate 2.5 Mg Tablet 2.5 Mg PO DAILY 07/25/18 Reported Prednisone 20 Mg Tablet 1 Tab PO DAILY 5 07/15/18 Rx Culturelle (Lactobacillus Rhamnosus Gg) 1 Each Cap.sprink 1 Cap PO BID 7 07/15/18 Rx Augmentin 500-125 Tablet (Amoxicillin/Potassium Clav) 1 Each Tablet 1 Tab PO BID 7 07/15/18 Rx Metoclopramide Hcl 5 Mg Tablet 5 Mg PO PRN BFRMEALHC PRN 01/24/18 Rx Protonix (Pantoprazole Sodium) 40 Mg Granpkt.dr 40 Mg PO DAILY 30 01/24/18 Rx Benzonatate 100 Mg Capsule 1 Cap PO TID 10/23/17 Reported Albuterol Sulfate Neb Soln (Albuterol Sulfate) 2.5 Mg/3 Ml Vial.neb 1 Vial NEB BID 08/11/17 Reported Albuterol Sulfate Neb Soln (Albuterol Sulfate) 2.5 Mg/3 Ml Vial.neb 1 Vial NEB PRN Q4HRS 03/24/17 Reported Mucinex (Guaifenesin) 600 Mg Tablet.er 1 Tab PO BID 08/16/16 Reported Vitamin D (Cholecalciferol (Vitamin D3)) 50,000 Unit Capsule 50,000 Unit PO WEEKLY 08/16/16 Reported Ditropan Xl (Oxybutynin Chloride) 5 Mg Tab.er.24 5 Mg PO DAILY 08/16/16 Reported Losartan Potassium 50 Mg Tablet 50 Mg PO DAILY 08/16/16 Reported Simvastatin 10 Mg Tablet 10 Mg PO HS 08/16/16 Reported Zofran (Ondansetron Hcl) 4 Mg Tablet 1 Tab PO Q8HRS PRN 10/26/15 Rx Proair Hfa Inhaler (Albuterol Sulfate) 8.5 Gm Hfa.aer.ad 17 Gm IH Q4HRS W/A PRN 07/23/13 Reported Spiriva (Tiotropium [place]) 18 Mcg Cap.w.dev 18 Mcg IH DAILY 07/23/13 Reported Singulair Tablet (Montelukast Sodium) 10 Mg Tablet 10 Mg PO HS 07/23/13 Reported Diltiazem 24HR Cd (Diltiazem Hcl) 120 Mg Cap.er.24h 120 Mg PO DAILY 07/23/13 Reported Active Scripts Medications Dose Route/Sig Max Daily Dose Days Date Category Amlodipine Besylate 2.5 Mg Tablet 2.5 Mg PO DAILY 07/25/18 Reported Prednisone 20 Mg Tablet 1 Tab PO DAILY 5 07/15/18 Rx Culturelle (Lactobacillus Rhamnosus Gg) 1 Each Cap.sprink 1 Cap PO BID 7 07/15/18 Rx Augmentin 500-125 Tablet (Amoxicillin/Potassium Clav) 1 Each Tablet 1 Tab PO BID 7 07/15/18 Rx Metoclopramide Hcl 5 Mg Tablet 5 Mg PO PRN BFRMEALHC PRN 01/24/18 Rx Protonix (Pantoprazole Sodium) 40 Mg Granpkt.dr 40 Mg PO DAILY 30 01/24/18 Rx Benzonatate 100 Mg Capsule 1 Cap PO TID 10/23/17 Reported Albuterol Sulfate Neb Soln (Albuterol Sulfate) 2.5 Mg/3 Ml Vial.neb 1 Vial NEB BID 08/11/17 Reported Albuterol Sulfate Neb Soln (Albuterol Sulfate) 2.5 Mg/3 Ml Vial.neb 1 Vial NEB PRN Q4HRS 03/24/17 Reported Mucinex (Guaifenesin) 600 Mg Tablet.er 1 Tab PO BID 08/16/16 Reported Vitamin D (Cholecalciferol (Vitamin D3)) 50,000 Unit Capsule 50,000 Unit PO WEEKLY 08/16/16 Reported Ditropan Xl (Oxybutynin Chloride) 5 Mg Tab.er.24 5 Mg PO DAILY 08/16/16 Reported Losartan Potassium 50 Mg Tablet 50 Mg PO DAILY 08/16/16 Reported Simvastatin 10 Mg Tablet 10 Mg PO HS 08/16/16 Reported Zofran (Ondansetron Hcl) 4 Mg Tablet 1 Tab PO Q8HRS PRN 10/26/15 Rx Proair Hfa Inhaler (Albuterol Sulfate) 8.5 Gm Hfa.aer.ad 17 Gm IH Q4HRS W/A PRN 07/23/13 Reported Spiriva (Tiotropium [place]) 18 Mcg Cap.w.dev 18 Mcg IH DAILY 07/23/13 Reported Singulair Tablet (Montelukast Sodium) 10 Mg Tablet 10 Mg PO HS 07/23/13 Reported Diltiazem 24HR Cd (Diltiazem Hcl) 120 Mg Cap.er.24h 120 Mg PO DAILY 07/23/13 Reported Impression . Abnormal CT abdomen revealing basilar opacities compatible with possible pneumonia. Acute exacerbation of chronic obstructive pulmonary disease. Severe scoliosis. Nausea and vomiting per gastrointestinal service. Plan . Basilar opacities compatible with possible pneumonia. * cont Zosyn, D/C vanco IF BETTER IN AM WILL D/C 07/27 * afebrile, WBC WNL * follow cultures:NGTD Acute exacerbation of chronic obstructive pulmonary disease. * cont. bronchodilators * cont/ Pulmicort * supplemental oxygen titrate to keep sats above 92% * 6 min walk ordered Severe scoliosis. * PT/OT * supportive care Nausea and vomiting:resolved * PRN antiemetics * GI following * tolerating p.o. today Anemia, normocytic * no S/S of bleeding * HGB appears at baseline RUSSELL ROBERTSON MD Jul 26, 2018 12:26
--- NOTE | 2018-07-26 14:00 | DS ---
DATE OF DISCHARGE: 07/26/2018 ADMISSION DIAGNOSES: Clinical colitis with nausea, vomiting, diarrhea; history of chronic obstructive pulmonary disease. DISCHARGE DIAGNOSIS: Resolving infectious colitis, chronic obstructive pulmonary disease, history of scoliosis, abnormal chest x-ray (we were concerned she could have pneumonia or atelectasis. We did consult Dr. Casarez who agreed with antibiotics), history of asthma, anxiety, diabetes, hypertension, hyperlipidemia, hip replacement, left kidney resection, 5 back surgeries. CONSULTS: Dr. Casarez and Dr. Alex Zhu. HOSPITAL COURSE: The patient is a pleasant middle-aged female, well known to our service. We normally admit her for COPD exacerbations. This time she came in with some nausea, vomiting, diarrhea. Clinically, she seemed to have colitis or enteritis. We gave her IV fluids, empiric IV antibiotics, and consulted GI and Pulmonary. This morning, when I saw her and examined her, she was up walking, requesting to be discharged. She is smiling. Her heart tones are normal. Her lungs are clear. She is tolerating her diet. We plan to discharge if okay with the consultants. I did give her prescriptions for albuterol and Augmentin, and she states she cannot take PREDNISONE because she is allergic to it. We did give her Augmentin and albuterol and we continued her home Spiriva, simvastatin, amlodipine, Cardizem, losartan, benzonatate, Singulair, Mucinex, Zofran, Protonix, vitamins, metoclopramide, Culturelle. DISPOSITION: Home. ACTIVITY: As tolerated. DIET: Low sodium. MEDICATIONS: Please see the MRAD. TOTAL TIME: 32 minutes. DAYLIN ANDINO DO DR: MELA/jose JOB#: [id number] / [id number]
[2018-07-26 15:00] VITALS: BP 115/69
[2018-07-26] MEDS: CYANOCOBALAMIN (VITAMIN B-12) 1,000 MCG TABLET. PO SCH (15:31)
[2018-07-26 19:00] VITALS: BP 100/65
[2018-07-26] MEDS: MONTELUKAST SODIUM 10 MG TABLET. PO SCH (21:43)
[2018-07-26] MEDS: SIMVASTATIN 10 MG TABLET PO SCH (21:43)
[2018-07-26] MEDS: HYDROcodone/APAP 5/325MG 1 TAB TABLET PO PRN (22:18)
[2018-07-26 23:00] VITALS: BP 117/82
[2018-07-27] MEDS: PIPERACILLIN/TAZOBACTAM 2.25 GM in IV NORMAL SALINE 50ML 50 ML IV SCH ×3 (00:31→11:46)
[2018-07-27 02:57] VITALS: BP 126/87
[2018-07-27 07:00] VITALS: BP 124/76
[2018-07-27] MEDS: PANTOPRAZOLE 40 MG TABLET.DR. PO SCH (07:37)
[2018-07-27 07:41] LABS: BASO % 1 % (0-3); EOS # 0.2 x10^3/uL (0.0-0.7); EOS % 3 % (0-3); HEMATOCRIT 33.8 % (36.0-47.0); HEMOGLOBIN 11.2 g/dL (12.0-15.5); LYMPH # 1.5 x10^3/uL (1.0-4.8); LYMPH % 20 % (24-48); MEAN CORPUSCULAR HEMOGLOBIN 29 pg (25-35); MEAN CORPUSCULAR HGB CONC 33 g/dL (31-37); MEAN CORPUSCULAR VOLUME 86 fL (79-100); MONO # 0.9 x10^3/uL (0.0-1.1); MONO % 12 % (0-9); NEUT # 5.1 x10^3uL (1.8-7.7); NEUT % 66 % (31-73); PLATELET COUNT 395 x10^3/uL (140-400); RED BLOOD COUNT 3.92 x10^6/uL (3.50-5.40); RED CELL DISTRIBUTION WIDTH 17.2 % (11.5-14.5); WHITE BLOOD COUNT 7.8 x10^3/uL (4.0-11.0)
[2018-07-27 07:42] LABS: CALCIUM 9.1 mg/dL (8.5-10.1); CREATININE 0.9 mg/dL (0.6-1.0); GFR 63.7; POTASSIUM 4.1 mmol/L (3.5-5.1)
[2018-07-27] MEDS: IPRATRPIUM/ALBUTEROL 0.5/2.5MG 3 ML NEBU. NEB SCH ×2 (08:49→13:10)
[2018-07-27] MEDS: BUDESONIDE 0.5 MG/2 ML NEBU. NEB SCH (08:50)
[2018-07-27] MEDS: LACTOBACILLUS RHAMNOSUS GG 1 CAPSULE. PO SCH (08:51)
[2018-07-27] MEDS: BENZONATATE 100 MG CAPSULE. PO SCH (08:51)
[2018-07-27] MEDS: CYANOCOBALAMIN (VITAMIN B-12) 1,000 MCG TABLET. PO SCH (08:52)
[2018-07-27] MEDS: LOSARTAN POTASSIUM 50 MG TABLET. PO SCH (08:52)
[2018-07-27] MEDS: amLODIPine BESYLATE 5 MG TABLET PO SCH (08:52)
[2018-07-27] MEDS: OXYBUTYNIN CHLORIDE 5 MG TABLET PO SCH (08:52)
[2018-07-27 10:41] VITALS: BP 122/77
--- NOTE | 2018-07-27 10:58 | PDOC ---
PULMONARY PROGRESS NOTES Subjective Patient is up in chair eating lunch, without distress. PT. appears comfortable on 2 liter N/C. PT. denies SOB, cough, abdominal pain, N/V, or change in bowel. Vitals Vital Signs Date Time Temp Pulse Resp B/P (MAP) Pulse Ox O2 Delivery O2 Flow Rate FiO2 07/27/18 10:41 97.8 103 18 122/77 (92) 93 Nasal Cannula 2.0 97.8 ROS: No Nausea, No Chest Pain, No Abdominal Pain, No Increase Cough General: Alert, Oriented X4, No acute distress Lungs: Clear Cardiovascular: S1, S2 Abdomen: Soft, Non-tender Neuro Exam: Alert, Oriented Extremities: No Edema Skin: Warm, Dry Labs Laboratory Tests Test 07/25/18 11:00 07/25/18 16:26 07/25/18 20:56 07/26/18 04:55 Glucose (Fingerstick) 204 mg/dL (70-99) 120 mg/dL (70-99) 179 mg/dL (70-99) White Blood Count 10.2 x10^3/uL (4.0-11.0) Red Blood Count 3.86 x10^6/uL (3.50-5.40) Hemoglobin 11.0 g/dL (12.0-15.5) Hematocrit 33.1 % (36.0-47.0) Mean Corpuscular Volume 86 fL (79-100) Mean Corpuscular Hemoglobin 28 pg (25-35) Mean Corpuscular Hemoglobin Concent 33 g/dL (31-37) Red Cell Distribution Width 16.9 % (11.5-14.5) Platelet Count 376 x10^3/uL (140-400) Neutrophils (%) (Auto) 81 % (31-73) Lymphocytes (%) (Auto) 8 % (24-48) Monocytes (%) (Auto) 11 % (0-9) Eosinophils (%) (Auto) 0 % (0-3) Basophils (%) (Auto) 0 % (0-3) Neutrophils # (Auto) 8.3 x10^3uL (1.8-7.7) Lymphocytes # (Auto) 0.8 x10^3/uL (1.0-4.8) Monocytes # (Auto) 1.1 x10^3/uL (0.0-1.1) Eosinophils # (Auto) 0.0 x10^3/uL (0.0-0.7) Basophils # (Auto) 0.0 x10^3/uL (0.0-0.2) Reticulocyte Count (auto) 1.4 % (0.5-2.5) Sodium Level 140 mmol/L (136-145) Potassium Level 4.5 mmol/L (3.5-5.1) Chloride Level 103 mmol/L (98-107) Carbon Dioxide Level 36 mmol/L (21-32) Anion Gap 1 (6-14) Blood Urea Nitrogen 21 mg/dL (7-20) Creatinine 0.7 mg/dL (0.6-1.0) Estimated GFR (Cockcroft-Gault) 85.1 Glucose Level 110 mg/dL (70-99) Calcium Level 9.1 mg/dL (8.5-10.1) Iron Level 27 ug/dL (50-170) Total Iron Binding Capacity 291 ug/dL (250-450) Iron Saturation 9 % (15-34) Vitamin B12 Level 258 pg/mL (247-911) Procalcitonin < 0.10 ng/mL (0.00-0.10) Test 07/26/18 07:12 07/26/18 11:21 07/26/18 16:47 07/26/18 21:44 Glucose (Fingerstick) 111 mg/dL (70-99) 87 mg/dL (70-99) 96 mg/dL (70-99) 116 mg/dL (70-99) Test 07/27/18 06:30 07/27/18 07:29 White Blood Count 7.8 x10^3/uL (4.0-11.0) Red Blood Count 3.92 x10^6/uL (3.50-5.40) Hemoglobin 11.2 g/dL (12.0-15.5) Hematocrit 33.8 % (36.0-47.0) Mean Corpuscular Volume 86 fL (79-100) Mean Corpuscular Hemoglobin 29 pg (25-35) Mean Corpuscular Hemoglobin Concent 33 g/dL (31-37) Red Cell Distribution Width 17.2 % (11.5-14.5) Platelet Count 395 x10^3/uL (140-400) Neutrophils (%) (Auto) 66 % (31-73) Lymphocytes (%) (Auto) 20 % (24-48) Monocytes (%) (Auto) 12 % (0-9) Eosinophils (%) (Auto) 3 % (0-3) Basophils (%) (Auto) 1 % (0-3) Neutrophils # (Auto) 5.1 x10^3uL (1.8-7.7) Lymphocytes # (Auto) 1.5 x10^3/uL (1.0-4.8) Monocytes # (Auto) 0.9 x10^3/uL (0.0-1.1) Eosinophils # (Auto) 0.2 x10^3/uL (0.0-0.7) Basophils # (Auto) 0.0 x10^3/uL (0.0-0.2) Sodium Level 140 mmol/L (136-145) Potassium Level 4.1 mmol/L (3.5-5.1) Chloride Level 102 mmol/L (98-107) Carbon Dioxide Level 34 mmol/L (21-32) Anion Gap 4 (6-14) Blood Urea Nitrogen 17 mg/dL (7-20) Creatinine 0.9 mg/dL (0.6-1.0) Estimated GFR (Cockcroft-Gault) 63.7 Glucose Level 96 mg/dL (70-99) Calcium Level 9.1 mg/dL (8.5-10.1) Glucose (Fingerstick) 85 mg/dL (70-99) Laboratory Tests Test 07/26/18 11:21 07/26/18 16:47 07/26/18 21:44 07/27/18 06:30 Glucose (Fingerstick) 87 mg/dL (70-99) 96 mg/dL (70-99) 116 mg/dL (70-99) White Blood Count 7.8 x10^3/uL (4.0-11.0) Red Blood Count 3.92 x10^6/uL (3.50-5.40) Hemoglobin 11.2 g/dL (12.0-15.5) Hematocrit 33.8 % (36.0-47.0) Mean Corpuscular Volume 86 fL (79-100) Mean Corpuscular Hemoglobin 29 pg (25-35) Mean Corpuscular Hemoglobin Concent 33 g/dL (31-37) Red Cell Distribution Width 17.2 % (11.5-14.5) Platelet Count 395 x10^3/uL (140-400) Neutrophils (%) (Auto) 66 % (31-73) Lymphocytes (%) (Auto) 20 % (24-48) Monocytes (%) (Auto) 12 % (0-9) Eosinophils (%) (Auto) 3 % (0-3) Basophils (%) (Auto) 1 % (0-3) Neutrophils # (Auto) 5.1 x10^3uL (1.8-7.7) Lymphocytes # (Auto) 1.5 x10^3/uL (1.0-4.8) Monocytes # (Auto) 0.9 x10^3/uL (0.0-1.1) Eosinophils # (Auto) 0.2 x10^3/uL (0.0-0.7) Basophils # (Auto) 0.0 x10^3/uL (0.0-0.2) Sodium Level 140 mmol/L (136-145) Potassium Level 4.1 mmol/L (3.5-5.1) Chloride Level 102 mmol/L (98-107) Carbon Dioxide Level 34 mmol/L (21-32) Anion Gap 4 (6-14) Blood Urea Nitrogen 17 mg/dL (7-20) Creatinine 0.9 mg/dL (0.6-1.0) Estimated GFR (Cockcroft-Gault) 63.7 Glucose Level 96 mg/dL (70-99) Calcium Level 9.1 mg/dL (8.5-10.1) Test 07/27/18 07:29 Glucose (Fingerstick) 85 mg/dL (70-99) Medications Active Scripts Medications Dose Route/Sig Max Daily Dose Days Date Category Amlodipine Besylate 2.5 Mg Tablet 2.5 Mg PO DAILY 07/25/18 Reported Prednisone 20 Mg Tablet 1 Tab PO DAILY 5 07/15/18 Rx Culturelle (Lactobacillus Rhamnosus Gg) 1 Each Cap.sprink 1 Cap PO BID 7 07/15/18 Rx Augmentin 500-125 Tablet (Amoxicillin/Potassium Clav) 1 Each Tablet 1 Tab PO BID 7 07/15/18 Rx Metoclopramide Hcl 5 Mg Tablet 5 Mg PO PRN BFRMEALHC PRN 01/24/18 Rx Protonix (Pantoprazole Sodium) 40 Mg Granpkt.dr 40 Mg PO DAILY 30 01/24/18 Rx Benzonatate 100 Mg Capsule 1 Cap PO TID 10/23/17 Reported Albuterol Sulfate Neb Soln (Albuterol Sulfate) 2.5 Mg/3 Ml Vial.neb 1 Vial NEB BID 08/11/17 Reported Albuterol Sulfate Neb Soln (Albuterol Sulfate) 2.5 Mg/3 Ml Vial.neb 1 Vial NEB PRN Q4HRS 03/24/17 Reported Mucinex (Guaifenesin) 600 Mg Tablet.er 1 Tab PO BID 08/16/16 Reported Vitamin D (Cholecalciferol (Vitamin D3)) 50,000 Unit Capsule 50,000 Unit PO WEEKLY 08/16/16 Reported Ditropan Xl (Oxybutynin Chloride) 5 Mg Tab.er.24 5 Mg PO DAILY 08/16/16 Reported Losartan Potassium 50 Mg Tablet 50 Mg PO DAILY 08/16/16 Reported Simvastatin 10 Mg Tablet 10 Mg PO HS 08/16/16 Reported Zofran (Ondansetron Hcl) 4 Mg Tablet 1 Tab PO Q8HRS PRN 10/26/15 Rx Proair Hfa Inhaler (Albuterol Sulfate) 8.5 Gm Hfa.aer.ad 17 Gm IH Q4HRS W/A PRN 07/23/13 Reported Spiriva (Tiotropium [place]) 18 Mcg Cap.w.dev 18 Mcg IH DAILY 07/23/13 Reported Singulair Tablet (Montelukast Sodium) 10 Mg Tablet 10 Mg PO HS 07/23/13 Reported Diltiazem 24HR Cd (Diltiazem Hcl) 120 Mg Cap.er.24h 120 Mg PO DAILY 07/23/13 Reported Active Scripts Medications Dose Route/Sig Max Daily Dose Days Date Category Amlodipine Besylate 2.5 Mg Tablet 2.5 Mg PO DAILY 07/25/18 Reported Prednisone 20 Mg Tablet 1 Tab PO DAILY 5 07/15/18 Rx Culturelle (Lactobacillus Rhamnosus Gg) 1 Each Cap.sprink 1 Cap PO BID 7 07/15/18 Rx Augmentin 500-125 Tablet (Amoxicillin/Potassium Clav) 1 Each Tablet 1 Tab PO BID 7 07/15/18 Rx Metoclopramide Hcl 5 Mg Tablet 5 Mg PO PRN BFRMEALHC PRN 01/24/18 Rx Protonix (Pantoprazole Sodium) 40 Mg Granpkt.dr 40 Mg PO DAILY 30 01/24/18 Rx Benzonatate 100 Mg Capsule 1 Cap PO TID 10/23/17 Reported Albuterol Sulfate Neb Soln (Albuterol Sulfate) 2.5 Mg/3 Ml Vial.neb 1 Vial NEB BID 08/11/17 Reported Albuterol Sulfate Neb Soln (Albuterol Sulfate) 2.5 Mg/3 Ml Vial.neb 1 Vial NEB PRN Q4HRS 03/24/17 Reported Mucinex (Guaifenesin) 600 Mg Tablet.er 1 Tab PO BID 08/16/16 Reported Vitamin D (Cholecalciferol (Vitamin D3)) 50,000 Unit Capsule 50,000 Unit PO WEEKLY 08/16/16 Reported Ditropan Xl (Oxybutynin Chloride) 5 Mg Tab.er.24 5 Mg PO DAILY 08/16/16 Reported Losartan Potassium 50 Mg Tablet 50 Mg PO DAILY 08/16/16 Reported Simvastatin 10 Mg Tablet 10 Mg PO HS 08/16/16 Reported Zofran (Ondansetron Hcl) 4 Mg Tablet 1 Tab PO Q8HRS PRN 10/26/15 Rx Proair Hfa Inhaler (Albuterol Sulfate) 8.5 Gm Hfa.aer.ad 17 Gm IH Q4HRS W/A PRN 07/23/13 Reported Spiriva (Tiotropium [place]) 18 Mcg Cap.w.dev 18 Mcg IH DAILY 07/23/13 Reported Singulair Tablet (Montelukast Sodium) 10 Mg Tablet 10 Mg PO HS 07/23/13 Reported Diltiazem 24HR Cd (Diltiazem Hcl) 120 Mg Cap.er.24h 120 Mg PO DAILY 07/23/13 Reported Impression . Abnormal CT abdomen revealing basilar opacities compatible with possible pneumonia. Acute exacerbation of chronic obstructive pulmonary disease. Severe scoliosis. Nausea and vomiting per gastrointestinal service. Plan . Basilar opacities compatible with possible pneumonia. * cont Zosyn, D/C vanco IF BETTER IN AM WILL D/C 07/27 * afebrile, WBC WNL * follow cultures:NGTD Acute exacerbation of chronic obstructive pulmonary disease. * cont. bronchodilators * cont/ Pulmicort * supplemental oxygen titrate to keep sats above 92% * 6 min walk ordered Severe scoliosis. * PT/OT * supportive care Nausea and vomiting:resolved * PRN antiemetics * GI following * tolerating p.o. today Anemia, normocytic * no S/S of bleeding * HGB appears at baseline RUSSELL ROBERTSON MD Jul 27, 2018 10:58
--- NOTE | 2018-07-27 12:29 | PDOC ---
PROGRESS NOTES Chief Complaint Chief Complaint diarrhea, SOB History of Present Illness History of Present Illness Patient sitting in bedside chair with NC in place, in no acute distress. Vitals Vitals Vital Signs Date Time Temp Pulse Resp B/P (MAP) Pulse Ox O2 Delivery O2 Flow Rate FiO2 07/27/18 10:41 97.8 103 18 122/77 (92) 93 Nasal Cannula 2.0 97.8 Physical Exam General: Alert, Oriented X3, No acute distress, Other (severe scoliosis) Heart: Regular rate, Normal S1, Normal S2, No murmurs Lungs: Clear Abdomen: Normal bowel sounds, Soft, No tenderness Extremities: No clubbing, No cyanosis, No edema Skin: No rashes, No breakdown, No significant lesion Labs LABS Laboratory Tests Test 07/26/18 16:47 07/26/18 21:44 07/27/18 06:30 07/27/18 07:29 Glucose (Fingerstick) 96 mg/dL (70-99) 116 mg/dL (70-99) 85 mg/dL (70-99) White Blood Count 7.8 x10^3/uL (4.0-11.0) Red Blood Count 3.92 x10^6/uL (3.50-5.40) Hemoglobin 11.2 g/dL (12.0-15.5) Hematocrit 33.8 % (36.0-47.0) Mean Corpuscular Volume 86 fL (79-100) Mean Corpuscular Hemoglobin 29 pg (25-35) Mean Corpuscular Hemoglobin Concent 33 g/dL (31-37) Red Cell Distribution Width 17.2 % (11.5-14.5) Platelet Count 395 x10^3/uL (140-400) Neutrophils (%) (Auto) 66 % (31-73) Lymphocytes (%) (Auto) 20 % (24-48) Monocytes (%) (Auto) 12 % (0-9) Eosinophils (%) (Auto) 3 % (0-3) Basophils (%) (Auto) 1 % (0-3) Neutrophils # (Auto) 5.1 x10^3uL (1.8-7.7) Lymphocytes # (Auto) 1.5 x10^3/uL (1.0-4.8) Monocytes # (Auto) 0.9 x10^3/uL (0.0-1.1) Eosinophils # (Auto) 0.2 x10^3/uL (0.0-0.7) Basophils # (Auto) 0.0 x10^3/uL (0.0-0.2) Sodium Level 140 mmol/L (136-145) Potassium Level 4.1 mmol/L (3.5-5.1) Chloride Level 102 mmol/L (98-107) Carbon Dioxide Level 34 mmol/L (21-32) Anion Gap 4 (6-14) Blood Urea Nitrogen 17 mg/dL (7-20) Creatinine 0.9 mg/dL (0.6-1.0) Estimated GFR (Cockcroft-Gault) 63.7 Glucose Level 96 mg/dL (70-99) Calcium Level 9.1 mg/dL (8.5-10.1) Test 07/27/18 11:01 Glucose (Fingerstick) 101 mg/dL (70-99) Review of Systems Review of Systems improved SOB, denies diarrhea Assessment and Plan Assessmemt and Plan Problems Medical Problems: (1) Pneumonia Status: Acute Assessment: Acute exacerbation of COPD Possible pneumonia Diarrhea, resolved Gastroparesis Duodenal adenoma, history of Thrombocytosis, resolved Anemia, normocytic - stable ROSSANA, improved Severe Scoliosis Plan: Pulm: Discontinued Vanc, titrate O2 >92%, 6 min walk GI: Discharge on PPI and Miralax PRN, outpatient EGD and screening colonoscopy, if symptoms recur plan to do Sb series to assess for volvulus Micro: BCx (07/25): no growth x2 days Antibiotics: IV Vanc 07/25-07/27 Zosyn 07/25- Plan deescalation of abx to Augmentin 875 mg #14 at discharge, script written, on chart Home medications Script for Proair inhaler #1 on chart Appreciate subspecialty recs Dispo: anticipate discharge home today if okay with subspecialties Comment Review of Relevant I have reviewed the following items jose angel (where applicable) has been applied. Labs Laboratory Tests Test 07/25/18 16:26 07/25/18 20:56 07/26/18 04:55 07/26/18 07:12 Glucose (Fingerstick) 120 mg/dL (70-99) 179 mg/dL (70-99) 111 mg/dL (70-99) White Blood Count 10.2 x10^3/uL (4.0-11.0) Red Blood Count 3.86 x10^6/uL (3.50-5.40) Hemoglobin 11.0 g/dL (12.0-15.5) Hematocrit 33.1 % (36.0-47.0) Mean Corpuscular Volume 86 fL (79-100) Mean Corpuscular Hemoglobin 28 pg (25-35) Mean Corpuscular Hemoglobin Concent 33 g/dL (31-37) Red Cell Distribution Width 16.9 % (11.5-14.5) Platelet Count 376 x10^3/uL (140-400) Neutrophils (%) (Auto) 81 % (31-73) Lymphocytes (%) (Auto) 8 % (24-48) Monocytes (%) (Auto) 11 % (0-9) Eosinophils (%) (Auto) 0 % (0-3) Basophils (%) (Auto) 0 % (0-3) Neutrophils # (Auto) 8.3 x10^3uL (1.8-7.7) Lymphocytes # (Auto) 0.8 x10^3/uL (1.0-4.8) Monocytes # (Auto) 1.1 x10^3/uL (0.0-1.1) Eosinophils # (Auto) 0.0 x10^3/uL (0.0-0.7) Basophils # (Auto) 0.0 x10^3/uL (0.0-0.2) Reticulocyte Count (auto) 1.4 % (0.5-2.5) Sodium Level 140 mmol/L (136-145) Potassium Level 4.5 mmol/L (3.5-5.1) Chloride Level 103 mmol/L (98-107) Carbon Dioxide Level 36 mmol/L (21-32) Anion Gap 1 (6-14) Blood Urea Nitrogen 21 mg/dL (7-20) Creatinine 0.7 mg/dL (0.6-1.0) Estimated GFR (Cockcroft-Gault) 85.1 Glucose Level 110 mg/dL (70-99) Calcium Level 9.1 mg/dL (8.5-10.1) Iron Level 27 ug/dL (50-170) Total Iron Binding Capacity 291 ug/dL (250-450) Iron Saturation 9 % (15-34) Vitamin B12 Level 258 pg/mL (247-911) Procalcitonin < 0.10 ng/mL (0.00-0.10) Test 07/26/18 11:21 07/26/18 16:47 07/26/18 21:44 07/27/18 06:30 Glucose (Fingerstick) 87 mg/dL (70-99) 96 mg/dL (70-99) 116 mg/dL (70-99) White Blood Count 7.8 x10^3/uL (4.0-11.0) Red Blood Count 3.92 x10^6/uL (3.50-5.40) Hemoglobin 11.2 g/dL (12.0-15.5) Hematocrit 33.8 % (36.0-47.0) Mean Corpuscular Volume 86 fL (79-100) Mean Corpuscular Hemoglobin 29 pg (25-35) Mean Corpuscular Hemoglobin Concent 33 g/dL (31-37) Red Cell Distribution Width 17.2 % (11.5-14.5) Platelet Count 395 x10^3/uL (140-400) Neutrophils (%) (Auto) 66 % (31-73) Lymphocytes (%) (Auto) 20 % (24-48) Monocytes (%) (Auto) 12 % (0-9) Eosinophils (%) (Auto) 3 % (0-3) Basophils (%) (Auto) 1 % (0-3) Neutrophils # (Auto) 5.1 x10^3uL (1.8-7.7) Lymphocytes # (Auto) 1.5 x10^3/uL (1.0-4.8) Monocytes # (Auto) 0.9 x10^3/uL (0.0-1.1) Eosinophils # (Auto) 0.2 x10^3/uL (0.0-0.7) Basophils # (Auto) 0.0 x10^3/uL (0.0-0.2) Sodium Level 140 mmol/L (136-145) Potassium Level 4.1 mmol/L (3.5-5.1) Chloride Level 102 mmol/L (98-107) Carbon Dioxide Level 34 mmol/L (21-32) Anion Gap 4 (6-14) Blood Urea Nitrogen 17 mg/dL (7-20) Creatinine 0.9 mg/dL (0.6-1.0) Estimated GFR (Cockcroft-Gault) 63.7 Glucose Level 96 mg/dL (70-99) Calcium Level 9.1 mg/dL (8.5-10.1) Test 07/27/18 07:29 07/27/18 11:01 Glucose (Fingerstick) 85 mg/dL (70-99) 101 mg/dL (70-99) Laboratory Tests Test 07/26/18 16:47 07/26/18 21:44 07/27/18 06:30 07/27/18 07:29 Glucose (Fingerstick) 96 mg/dL (70-99) 116 mg/dL (70-99) 85 mg/dL (70-99) White Blood Count 7.8 x10^3/uL (4.0-11.0) Red Blood Count 3.92 x10^6/uL (3.50-5.40) Hemoglobin 11.2 g/dL (12.0-15.5) Hematocrit 33.8 % (36.0-47.0) Mean Corpuscular Volume 86 fL (79-100) Mean Corpuscular Hemoglobin 29 pg (25-35) Mean Corpuscular Hemoglobin Concent 33 g/dL (31-37) Red Cell Distribution Width 17.2 % (11.5-14.5) Platelet Count 395 x10^3/uL (140-400) Neutrophils (%) (Auto) 66 % (31-73) Lymphocytes (%) (Auto) 20 % (24-48) Monocytes (%) (Auto) 12 % (0-9) Eosinophils (%) (Auto) 3 % (0-3) Basophils (%) (Auto) 1 % (0-3) Neutrophils # (Auto) 5.1 x10^3uL (1.8-7.7) Lymphocytes # (Auto) 1.5 x10^3/uL (1.0-4.8) Monocytes # (Auto) 0.9 x10^3/uL (0.0-1.1) Eosinophils # (Auto) 0.2 x10^3/uL (0.0-0.7) Basophils # (Auto) 0.0 x10^3/uL (0.0-0.2) Sodium Level 140 mmol/L (136-145) Potassium Level 4.1 mmol/L (3.5-5.1) Chloride Level 102 mmol/L (98-107) Carbon Dioxide Level 34 mmol/L (21-32) Anion Gap 4 (6-14) Blood Urea Nitrogen 17 mg/dL (7-20) Creatinine 0.9 mg/dL (0.6-1.0) Estimated GFR (Cockcroft-Gault) 63.7 Glucose Level 96 mg/dL (70-99) Calcium Level 9.1 mg/dL (8.5-10.1) Test 07/27/18 11:01 Glucose (Fingerstick) 101 mg/dL (70-99) Microbiology 07/25/18 Blood Culture - Preliminary, Resulted NO GROWTH AFTER 2 DAYS Medications Current Medications Albuterol/ Ipratropium (Duoneb) 3 ml 1X ONCE NEB Last administered on 07/24/18at 22:23; Start 07/24/18 at 22:30; Stop 07/24/18 at 22:31; Status DC Methylprednisolone Sodium Succinate (SOLU-Medrol 125MG VIAL) 125 mg 1X ONCE IV Last administered on 07/24/18at 22:41; Start 07/24/18 at 22:30; Stop 07/24/18 at 22:31; Status DC Famotidine (Pepcid Vial) 20 mg 1X ONCE IVP Last administered on 07/24/18at 22:42; Start 07/24/18 at 22:30; Stop 07/24/18 at 22:31; Status DC Ondansetron HCl (Zofran) 4 mg 1X ONCE IV Last administered on 07/24/18at 22:42; Start 07/24/18 at 22:30; Stop 07/24/18 at 22:31; Status DC Iohexol (Omnipaque 300 Mg/ml) 60 ml 1X ONCE IV Last administered on 07/24/18at 23:24; Start 07/24/18 at 23:15; Stop 07/24/18 at 23:16; Status DC Info (CONTRAST GIVEN -- Rx MONITORING) 1 each PRN DAILY PRN MC SEE COMMENTS; Start 07/24/18 at 23:15; Stop 07/26/18 at 23:14; Status DC Vancomycin HCl (Vanco Per Pharmacy) 1 each PRN DAILY PRN MC SEE COMMENTS Last administered on 07/25/18at 02:06; Start 07/25/18 at 00:30; Stop 07/25/18 at 18:17; Status DC Piperacillin Sod/ Tazobactam Sod (Zosyn Per Pharmacy) 1 each PRN DAILY PRN MC SEE COMMENTS; Start 07/25/18 at 00:30 Albuterol/ Ipratropium (Duoneb) 3 ml RTQID NEB Last administered on 07/25/18at 19:30; Start 07/25/18 at 08:00; Stop 07/26/18 at 07:59; Status DC Vancomycin HCl 1.25 gm/Sodium Chloride 250 ml @ 166.667 mls/hr 1X ONCE IV Last administered on 07/25/18at 01:50; Start 07/25/18 at 00:30; Stop 07/25/18 at 01:59; Status DC Piperacillin Sod/ Tazobactam Sod 2.25 gm/Sodium Chloride 50 ml @ 100 mls/hr 1X ONCE IV Last administered on 07/25/18at 00:47; Start 07/25/18 at 00:30; Stop 07/25/18 at 00:59; Status DC Piperacillin Sod/ Tazobactam Sod 2.25 gm/Sodium Chloride 50 ml @ 100 mls/hr Q6HRS IV Last administered on 07/27/18at 11:46; Start 07/25/18 at 06:00 Vancomycin HCl 750 mg/Sodium Chloride 250 ml @ 250 mls/hr Q24H IV ; Start 07/26/18 at 02:00; Stop 07/26/18 at 02:00; Status DC Vancomycin HCl (Vancomycin Trough Level) 1 each 1X ONCE MC ; Start 07/27/18 at 01:30; Stop 07/27/18 at 01:30; Status DC Acetaminophen/ Hydrocodone Bitart (Lortab 5/325) 1 tab PRN Q4HRS PRN PO PAIN Last administered on 07/26/18at 22:18; Start 07/25/18 at 03:45 Albuterol Sulfate (Ventolin Neb Soln) 2.5 mg BID NEB ; Start 07/25/18 at 21:00; Status Cancel Albuterol Sulfate (Ventolin Neb Soln) 2.5 mg PRN Q4HRS PRN NEB SHORTNESS OF BREATH Last administered on 07/27/18 04:52; Start 07/25/18 at 10:45 Guaifenesin (Mucinex) 600 mg BID PO Last administered on 07/27/18 08:52; Start 07/25/18 at 21:00 Lactobacillus Rhamnosus (Culturelle) 1 cap BID PO ; Start 07/25/18 at 21:00; Status Cancel Losartan Potassium (Cozaar) 50 mg DAILY PO Last administered on 07/27/18 08:52; Start 07/25/18 at 11:00 Metoclopramide HCl (Reglan) 5 mg PRN BFRMEALHC PRN PO NAUSEA/VOMITING; Start 07/25/18 at 10:45 Simvastatin (Zocor) 10 mg HS PO Last administered on 07/26/18 21:43; Start 07/25/18 at 21:00 Amlodipine Besylate (Norvasc) 2.5 mg DAILY PO Last administered on 07/27/18 08:52; Start 07/25/18 at 11:00 Benzonatate (Tessalon [place]) 100 mg [id number] PO Last administered on 07/27/18 08:51; Start 07/25/18 at 14:00 Ergocalciferol (Vitamin D2) 50,000 unit WEEKLY PO ; Start 08/01/18 at 09:00 Diltiazem HCl (Cardizem 24hr Cd) 120 mg DAILY PO Last administered on 07/27/18 08:51; Start 07/25/18 at 11:00 Montelukast Sodium (Singulair) 10 mg QHS PO Last administered on 07/26/18 21:43; Start 07/25/18 at 21:00 Ondansetron HCl (Zofran Odt) 4 mg PRN Q8HRS PRN PO NAUSEA/VOMITING; Start 07/25/18 at 11:00 Oxybutynin Chloride (Ditropan) 5 mg [id number] PO Last administered on 07/27/18 08:52; Start 07/25/18 at 14:00 Pantoprazole Sodium (Protonix) 40 mg DAILYAC PO Last administered on 07/27/18 07:37; Start 07/25/18 at 11:00 Non-Formulary Medication (Tiotropium [place] (Spiriva)) 18 mcg DAILY IH ; Start 07/26/18 at 09:00; Status UNV Budesonide (Pulmicort) 0.5 mg RTBID NEB Last administered on 07/27/18at 08:50; Start 07/25/18 at 20:00 Albuterol/ Ipratropium (Duoneb) 3 ml RTQID NEB Last administered on 07/27/18 08:49; Start 07/26/18 at 08:00 Lactobacillus Rhamnosus (Culturelle) 1 cap BID PO Last administered on 07/27/18at 08:51; Start 07/25/18 at 21:00 Cyanocobalamin (Vitamin B-12) 1,000 mcg DAILY PO Last administered on 07/27/18at 08:52; Start 07/26/18 at 15:30 Active Scripts Active Prednisone 20 Mg Tablet 1 Tab PO DAILY 5 Days Culturelle (Lactobacillus Rhamnosus Gg) 1 Each Cap.sprink 1 Cap PO BID 7 Days Augmentin 500-125 Tablet (Amoxicillin/Potassium Clav) 1 Each Tablet 1 Tab PO BID 7 Days Metoclopramide Hcl 5 Mg Tablet 5 Mg PO PRN BFRMEALHC PRN Protonix (Pantoprazole Sodium) 40 Mg Granpkt.dr 40 Mg PO DAILY 30 Days Zofran (Ondansetron Hcl) 4 Mg Tablet 1 Tab PO Q8HRS PRN Reported Amlodipine Besylate 2.5 Mg Tablet 2.5 Mg PO DAILY Benzonatate 100 Mg Capsule 1 Cap PO TID Albuterol Sulfate Neb Soln (Albuterol Sulfate) 2.5 Mg/3 Ml Vial.neb 1 Vial NEB BID Albuterol Sulfate Neb Soln (Albuterol Sulfate) 2.5 Mg/3 Ml Vial.neb 1 Vial NEB PRN Q4HRS Mucinex (Guaifenesin) 600 Mg Tablet.er 1 Tab PO BID Vitamin D (Cholecalciferol (Vitamin D3)) 50,000 Unit Capsule 50,000 Unit PO WEEKLY Ditropan Xl (Oxybutynin Chloride) 5 Mg Tab.er.24 5 Mg PO DAILY Losartan Potassium 50 Mg Tablet 50 Mg PO DAILY Simvastatin 10 Mg Tablet 10 Mg PO HS Proair Hfa Inhaler (Albuterol Sulfate) 8.5 Gm Hfa.aer.ad 17 Gm IH Q4HRS W/A PRN Spiriva (Tiotropium [place]) 18 Mcg Cap.w.dev 18 Mcg IH DAILY Singulair Tablet (Montelukast Sodium) 10 Mg Tablet 10 Mg PO HS Diltiazem 24HR Cd (Diltiazem Hcl) 120 Mg Cap.er.24h 120 Mg PO DAILY Vitals/I & O Vital Sign - Last 24 Hours 07/26/18 07/26/18 07/26/18 07/26/18 15:00 15:16 19:00 20:00 Temp 97.8 97.7 97.8 97.7 Pulse 97 94 Resp 18 18 B/P (MAP) 115/69 (84) 100/65 (77) Pulse Ox 94 97 95 O2 Delivery Nasal Cannula Nasal Cannula Nasal Cannula Nasal Cannula O2 Flow Rate 2.0 1.0 2.0 2.0 07/26/18 07/26/18 07/26/18 07/26/18 20:11 22:18 23:00 23:20 Temp 98.0 98.0 Pulse 93 Resp 18 B/P (MAP) 117/82 (94) Pulse Ox 99 93 O2 Delivery Nasal Cannula Room Air Nasal Cannula Nasal Cannula O2 Flow Rate 1.0 1.0 2.0 07/27/18 07/27/18 07/27/18 07/27/18 02:57 04:51 07:00 08:06 Temp 98.8 98.1 98.8 98.1 Pulse 90 90 Resp 18 18 B/P (MAP) 126/87 (100) 124/76 (92) Pulse Ox 97 94 O2 Delivery Nasal Cannula Nasal Cannula Nasal Cannula Nasal Cannula O2 Flow Rate 2.0 1.0 2.0 1.0 07/27/18 07/27/18 07/27/18 07/27/18 08:50 08:51 08:52 08:52 Pulse 90 90 90 B/P (MAP) 124/76 124/76 124/76 Pulse Ox 94 O2 Delivery Nasal Cannula O2 Flow Rate 1.0 07/27/18 10:41 Temp 97.8 97.8 Pulse 103 Resp 18 B/P (MAP) 122/77 (92) Pulse Ox 93 O2 Delivery Nasal Cannula O2 Flow Rate 2.0 Intake and Output 07/26/18 07/26/18 07/27/18 15:00 23:00 07:00 Intake Total 840 ml 300 ml 0 ml Balance 840 ml 300 ml 0 ml CASTLE,NIAL K III DO Jul 27, 2018 12:29
--- NOTE | 2018-07-27 14:03 | NUR ---
SW following pt for dc needs. Chart reviewed. Pt lives at home with spouse and has no skilled needs. No other needs noted at this time.
--- NOTE | 2018-07-27 14:06 | PDOC ---
Subjective: Subjective: No GI complaints. Objective: Vital Signs: Vital Signs Date Time Temp Pulse Resp B/P (MAP) Pulse Ox O2 Delivery O2 Flow Rate FiO2 07/27/18 13:11 96 Nasal Cannula 1.0 07/27/18 10:41 97.8 103 18 122/77 (92) 97.8 Labs: Laboratory Tests Test 07/26/18 16:47 07/26/18 21:44 07/27/18 07:29 07/27/18 11:01 Glucose (Fingerstick) 96 mg/dL (70-99) 116 mg/dL (70-99) 85 mg/dL (70-99) 101 mg/dL (70-99) PE: GEN: NAD - resp therapy present LUNGS: NC NEURO/PSYCH: A & O 3 A/P: Abd pain, n/v, diarrhea - resolved -- DC plans noted. Follow-up as outpt. JOY NIEVES Jul 27, 2018 14:06
--- NOTE | 2018-07-27 14:39 | NUR ---
Discharge Note: TREASURE CALVERT Discharge instructions and discharge home medications reviewed with Patient and a copy given. All questions have been answered and understanding verbalized. The following instructions and handouts were given: discharge instructions, new prescriptions, education and follow up recommendations. Discontinued lines and drains: Peripheral IV discontinued intact. Patient discharged to Home or Self Care with Family Member via Wheelchair off unit by RAT BREEDER.
[2018-07-27 15:00] VITALS: BP 129/77
[2018-08-01] MEDS ORDERED: ERGOCALCIFEROL (VITAMIN D2) 50,000 UNIT CAPSULE. PO SCH (09:00)
[2018-09-08] MEDS ORDERED: OXYC1TAB15 PO (10:12)
== END 2018-07-27 14:41 | disposition home or self-care (01) | DRG 177 ==
LOC: ER 21:52 → 5 NORTH 07-25 00:25
PROVIDERS: ADMIT Internal Medicine; ATTEND Internal Medicine
DX: J69.0 Pneumonitis due to inhalation of food and vomit (principal); N17.0 Acute kidney failure with tubular necrosis; A09 Infectious gastroenteritis and colitis, unspecified; J44.1 Chronic obstructive pulmonary disease with (acute) exacerbation; J44.0 Chronic obstructive pulmonary disease with (acute) lower respiratory infection; J18.9 Pneumonia, unspecified organism; F41.9 Anxiety disorder, unspecified; E78.00 Pure hypercholesterolemia, unspecified; M41.9 Scoliosis, unspecified; Z96.641 Presence of right artificial hip joint; E78.5 Hyperlipidemia, unspecified; I50.9 Heart failure, unspecified; I11.0 Hypertensive heart disease with heart failure; E10.43 Type 1 diabetes mellitus with diabetic autonomic (poly)neuropathy; K31.84 Gastroparesis; I25.10 Atherosclerotic heart disease of native coronary artery without angina pectoris; D13.2 Benign neoplasm of duodenum; D64.9 Anemia, unspecified; K58.9 Irritable bowel syndrome, unspecified; Z90.5 Acquired absence of kidney; Z90.721 Acquired absence of ovaries, unilateral; Z90.49 Acquired absence of other specified parts of digestive tract; Z88.6 Allergy status to analgesic agent; Z87.891 Personal history of nicotine dependence; Z87.01 Personal history of pneumonia (recurrent); Z79.4 Long term (current) use of insulin
CPT/HCPCS: 36415; 71045; 74177; 80048; 80053; 80307; 82553; 82607; 82962; 83540; 83550; 83605; 83690; 83735; 83880; 84145; 84484; 85025; 85045; 87040; 93005; 94618; 94640; 94760; 96365; 96375; J2405; J2543; J2930; J3370; J3490; J7050; J7613; J7620; J7626; Q9967; 99285-25; J7030

== ENCOUNTER 2018-12-11 03:25 | Emergency (ER) | payer OTHER ==
[~2018-12-11] VITALS: Ht 154.9 cm; Wt 54.4 kg
[~2018-12-11 03:25] MED LIST changes: +AMLO2.5T5 PO; +CEPH500C PO; +DOXY100C14 PO; +IPRA3AMP29 NEB; +MONT10TA49 PO; -MONT10TA6 PO; +NITR0.4T22 SL; +OXYC1TAB15 PO; -TIZA4TAB PO; +TIZA4TAB2 PO; +TRAM50TA PO
[2018-12-11] MEDS ORDERED: diazePAM 5 MG TABLET PO ONE (03:45)
--- NOTE | 2018-12-11 03:45 | PHYS DOC ---
Past Medical History Past Medical History: Anxiety, Asthma, COPD, Diabetes-Type I, High Cholesterol, Heart Disease, Hypertension Additional Past Medical Histor: SCOLIOSIS Past Surgical History: Hip Replacement Additional Past Surgical Histo: R hip, Upper L kidney removed, 5 back surgeries due to fall Alcohol Use: Occasionally Drug Use: None Adult General Chief Complaint Chief Complaint: ABDOMINAL PAIN HPI HPI Patient is a 63-year-old female with chronic pain issues who presents with 12 hour history of abdominal pain. She states the pain started in her lower abdomen is now in her upper abdomen. She denies any fever chills or sweats. She had said some been nausea but no vomiting. She denies any melena or hematemesis. She states she does occasionally get pain like this but it seemed worse tonight.[] Review of Systems Review of Systems Constitutional: Denies fever or chills [] Eyes: Denies change in visual acuity, redness, or eye pain [] HENT: Denies nasal congestion or sore throat [] Respiratory: Denies cough or shortness of breath [] Cardiovascular: No additional information not addressed in HPI [] GI: Per history of present illness[] : Denies dysuria or hematuria [] Musculoskeletal: Denies back pain or joint pain [] Integument: Denies rash or skin lesions [] Neurologic: Denies headache, focal weakness or sensory changes [] Endocrine: Denies polyuria or polydipsia [] All other systems were reviewed and found to be within normal limits, except as documented in this note. Current Medications Current Medications Current Medications Medications (Trade) Dose Ordered Sig/Thanh Start Time Stop Time Status Last Admin Dose Admin Diazepam (Valium) 5 mg 1X ONCE 12/11/18 03:45 12/11/18 03:46 DC 12/11/18 04:01 5 MG Info (CONTRAST GIVEN -- Rx MONITORING) 1 each PRN DAILY PRN 12/11/18 05:15 12/13/18 05:14 Iohexol (Omnipaque 300 Mg/ml) 75 ml 1X ONCE 12/11/18 05:15 12/11/18 05:16 DC 12/11/18 05:10 75 ML Ondansetron HCl (Zofran) 4 mg 1X ONCE 12/11/18 04:15 12/11/18 04:19 DC 12/11/18 04:22 4 MG Sodium Chloride 1,000 ml @ 1,000 mls/hr 1X ONCE 12/11/18 04:00 12/11/18 04:59 DC 12/11/18 04:01 1,000 MLS/HR Allergies Allergies Allergies Coded Allergies Type Severity Reaction Last Updated Verified aspirin Allergy Intermediate 06/13/18 Yes Physical Exam Physical Exam Constitutional: Well developed, well nourished, mild distress, non-toxic appearance. [] HENT: Normocephalic, atraumatic, bilateral external ears normal, oropharynx moist, no oral exudates, nose normal. [] Eyes: PERRLA, EOMI, conjunctiva normal, no discharge. [] Neck: Normal range of motion, no tenderness, supple, no stridor. [] Cardiovascular:Heart rate regular rhythm, no murmur [] Lungs & Thorax: Bilateral breath sounds clear to auscultation [] Abdomen: Diffuse tender to palp no rebound or guarding. [] Skin: Warm, dry, no erythema, no rash. [] Back: No tenderness, no CVA tenderness. [] Extremities: No tenderness, no cyanosis, no clubbing, ROM intact, no edema. [] Neurologic: Alert and oriented X 3, normal motor function, normal sensory function, no focal deficits noted. [] Psychologic: Depressed affect. [] Current Patient Data Vital Signs Vital Signs Date Time Temp Pulse Resp B/P (MAP) Pulse Ox O2 Delivery O2 Flow Rate FiO2 12/11/18 04:24 92 26 158/98 (118) 96 Nasal Cannula 2.0 12/11/18 03:42 96.6 96.6 Lab Values Laboratory Tests Test 12/11/18 04:10 White Blood Count 6.3 x10^3/uL (4.0-11.0) Red Blood Count 3.85 x10^6/uL (3.50-5.40) Hemoglobin 11.3 g/dL (12.0-15.5) L Hematocrit 33.9 % (36.0-47.0) L Mean Corpuscular Volume 88 fL (79-100) Mean Corpuscular Hemoglobin 29 pg (25-35) Mean Corpuscular Hemoglobin Concent 33 g/dL (31-37) Red Cell Distribution Width 15.8 % (11.5-14.5) H Platelet Count 361 x10^3/uL (140-400) Neutrophils (%) (Auto) 69 % (31-73) Lymphocytes (%) (Auto) 14 % (24-48) L Monocytes (%) (Auto) 11 % (0-9) H Eosinophils (%) (Auto) 5 % (0-3) H Basophils (%) (Auto) 1 % (0-3) Neutrophils # (Auto) 4.3 x10^3/uL (1.8-7.7) Lymphocytes # (Auto) 0.9 x10^3/uL (1.0-4.8) L Monocytes # (Auto) 0.7 x10^3/uL (0.0-1.1) Eosinophils # (Auto) 0.3 x10^3/uL (0.0-0.7) Basophils # (Auto) 0.1 x10^3/uL (0.0-0.2) Sodium Level 143 mmol/L (136-145) Potassium Level 4.5 mmol/L (3.5-5.1) Chloride Level 106 mmol/L (98-107) Carbon Dioxide Level 31 mmol/L (21-32) Anion Gap 6 (6-14) Blood Urea Nitrogen 16 mg/dL (7-20) Creatinine 0.8 mg/dL (0.6-1.0) Estimated GFR (Cockcroft-Gault) 72.7 BUN/Creatinine Ratio 20 (6-20) Glucose Level 94 mg/dL (70-99) Calcium Level 8.8 mg/dL (8.5-10.1) Total Bilirubin 0.4 mg/dL (0.2-1.0) Aspartate Amino Transferase (AST) 14 U/L (15-37) L Alanine Aminotransferase (ALT) 12 U/L (14-59) L Alkaline Phosphatase 92 U/L (46-116) Troponin I Quantitative < 0.017 ng/mL (0.000-0.055) Total Protein 6.1 g/dL (6.4-8.2) L Albumin 3.3 g/dL (3.4-5.0) L Albumin/Globulin Ratio 1.2 (1.0-1.7) Lipase 38 U/L (73-393) L Laboratory Tests 12/11/18 04:10 Laboratory Tests 12/11/18 04:10 EKG EKG [] Radiology/Procedures Radiology/Procedures [] Impressions: REASON: abd pain, OMNI 300, 75ml PROCEDURE: CT ABD PELV W/ IV CONTRST ONLY CT ABD PELV W/ IV CONTRST ONLY History: Comparison: None. Technique: After administration of intravenous contrast, helical CT of the abdomen and pelvis was performed from the lung bases through the ischial tuberosities. Coronal and sagittal reconstructions were obtained. 75 mL of Omnipaque 300 were used. One or more of the following dose reduction techniques were utilized: Automated exposure control (AEC), Adjustment of mA and/or kV according to patient size, Use of iterative reconstruction technique such as ASiR, CT scan done according to ALARA and image gently/image wisely Abdomen Findings: Increased bibasilar lung opacities. The spleen and bilateral adrenal glands are normal. Stable scattered small hepatic hypodensities, likely cysts. Cholecystectomy. Fatty infiltration of the pancreas. Left partial nephrectomy. Symmetric renal enhancement. There is no focal renal mass. There is no hydronephrosis. The visualized loops of small bowel are normal. The visualized loops of large bowel are normal. There is no evidence of bowel obstruction. Appendix is mildly. There is no free fluid. There is no mesenteric or retroperitoneal adenopathy. The abdominal aorta is normal in caliber. Pelvis Findings: Urinary bladder is normal. No pelvic free fluid. There is no pelvic or inguinal adenopathy. Marked right convex thoracolumbar curvature. Right total hip arthroplasty. IMPRESSION: 1. No acute abdominal process. Normal caliber bowel. No mass or fluid collection. 2. Increasing bibasilar lung opacities, which could represent relaxation/subsegmental atelectasis associated with patient's scoliosis, although infection or aspiration could have a similar appearance. Course & Med Decision Making Course & Med Decision Making Pertinent Labs and Imaging studies reviewed. (See chart for details) [ED course: Evaluation reveals a 63-year-old female with chronic pain issues who presents with abdominal pain today. She seemed very anxious on arrival. I gave her by mouth Valium which did seem to help calm her down. Her laboratory studies including CT scan were unrevealing. Fill the patient is safe for discharge home.] Dragon Disclaimer Dragon Disclaimer This electronic medical record was generated, in whole or in part, using a voice recognition dictation system. Departure Departure Impression: Primary Impression: Abdominal pain Disposition: HOME, SELF-CARE Condition: STABLE Referrals: JACKIE REESE MD (PCP) Patient Instructions: Abdominal Pain (Nonspecific) Additional Instructions: Return to the emergency department with any new or concerning symptoms Scripts Ondansetron Hcl (ZOFRAN) 4 Mg Tablet 1 TAB PO Q8HRS PRN for NAUSEA, #20 TAB Prov: RANDALL KNIGHT DO 12/11/18 Problem Qualifiers Primary Impression: Abdominal pain Abdominal location: unspecified location Qualified Codes: R10.9 - Unspecified abdominal pain RANDALL KNIGHT DO Dec 11, 2018 03:44
[2018-12-11] MEDS ORDERED: IV NORMAL SALINE 1000ML BAG 1,000 ML IV ONE (04:00)
[2018-12-11] MEDS ORDERED: ONDANSETRON PF 4 MG/2 ML VIAL. IV ONE (04:15)
[2018-12-11 04:29] LABS: CALCIUM 8.8 mg/dL (8.5-10.1); CREATININE 0.8 mg/dL (0.6-1.0); GFR 72.7; POTASSIUM 4.5 mmol/L (3.5-5.1)
[2018-12-11 04:33] LABS: BASO # 0.1 x10^3/uL (0.0-0.2); BASO % 1 % (0-3); EOS # 0.3 x10^3/uL (0.0-0.7); EOS % 5 % (0-3); HEMATOCRIT 33.9 % (36.0-47.0); HEMOGLOBIN 11.3 g/dL (12.0-15.5); LYMPH # 0.9 x10^3/uL (1.0-4.8); LYMPH % 14 % (24-48); MEAN CORPUSCULAR HEMOGLOBIN 29 pg (25-35); MEAN CORPUSCULAR HGB CONC 33 g/dL (31-37); MEAN CORPUSCULAR VOLUME 88 fL (79-100); MONO # 0.7 x10^3/uL (0.0-1.1); MONO % 11 % (0-9); NEUT # 4.3 x10^3/uL (1.8-7.7); NEUT % 69 % (31-73); PLATELET COUNT 361 x10^3/uL (140-400); RED BLOOD COUNT 3.85 x10^6/uL (3.50-5.40); RED CELL DISTRIBUTION WIDTH 15.8 % (11.5-14.5); WHITE BLOOD COUNT 6.3 x10^3/uL (4.0-11.0)
[2018-12-11 04:35] LABS: ALBUMIN 3.3 g/dL (3.4-5.0); ALBUMIN/GLOBULIN RATIO 1.2 (1.0-1.7); TOTAL BILIRUBIN 0.4 mg/dL (0.2-1.0); TOTAL PROTEIN 6.1 g/dL (6.4-8.2)
[2018-12-11] MEDS ORDERED: IOHEXOL 300 MG/ML 100ML VIAL. IV ONE (05:15)
[2018-12-11] MEDS ORDERED: CONTRAST GIVEN. MC PRN (05:15)
--- NOTE | 2018-12-11 05:40 | RAD ---
CT ABD PELV W/ IV CONTRST ONLY History: Comparison: None. Technique: After administration of intravenous contrast, helical CT of the abdomen and pelvis was performed from the lung bases through the ischial tuberosities. Coronal and sagittal reconstructions were obtained. 75 mL of Omnipaque 300 were used. One or more of the following dose reduction techniques were utilized: Automated exposure control (AEC), Adjustment of mA and/or kV according to patient size, Use of iterative reconstruction technique such as ASiR, CT scan done according to ALARA and image gently/image wisely Abdomen Findings: Increased bibasilar lung opacities. The spleen and bilateral adrenal glands are normal. Stable scattered small hepatic hypodensities, likely cysts. Cholecystectomy. Fatty infiltration of the pancreas. Left partial nephrectomy. Symmetric renal enhancement. There is no focal renal mass. There is no hydronephrosis. The visualized loops of small bowel are normal. The visualized loops of large bowel are normal. There is no evidence of bowel obstruction. Appendix is mildly. There is no free fluid. There is no mesenteric or retroperitoneal adenopathy. The abdominal aorta is normal in caliber. Pelvis Findings: Urinary bladder is normal. No pelvic free fluid. There is no pelvic or inguinal adenopathy. Marked right convex thoracolumbar curvature. Right total hip arthroplasty. IMPRESSION: 1. No acute abdominal process. Normal caliber bowel. No mass or fluid collection. 2. Increasing bibasilar lung opacities, which could represent relaxation/subsegmental atelectasis associated with patient's scoliosis, although infection or aspiration could have a similar appearance. Electronically signed by: Mazin Chen MD (12/11/2018 5:37 AM) [id number]
[2018-12-11] MEDS ORDERED: ONDA4TAB7 PO (05:46)
[2018-12-11 09:18] VITALS: BP 155/98
--- NOTE | 2018-12-12 07:36 | EKG ---
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
== END 2018-12-11 09:18 | disposition home or self-care (01) ==
LOC: ER 03:25
DX: G89.29 Other chronic pain (principal); R10.84 Generalized abdominal pain; F41.9 Anxiety disorder, unspecified; E10.9 Type 1 diabetes mellitus without complications; J44.9 Chronic obstructive pulmonary disease, unspecified; E78.00 Pure hypercholesterolemia, unspecified; I11.9 Hypertensive heart disease without heart failure; Z96.641 Presence of right artificial hip joint; Z88.6 Allergy status to analgesic agent
CPT/HCPCS: 36415; 74177; 80053; 83690; 84484; 85025; 93005; 96374; 99285; J2405; J7030; Q9967

== ENCOUNTER 2018-12-31 12:54 | Emergency (ER) | payer OTHER ==
[~2018-12-31] VITALS: Ht 157.5 cm; Wt 52.6 kg
[~2018-12-31 12:54] MED LIST changes: -DILT120C85 PO; +DILT120C99 PO; -GLIM1TAB2 PO; +GLIM1TAB3 PO; +SIMV10TA15 PO; -SIMV10TA3 PO; +SIMV40TA18 PO; -SIMV40TA3 PO
[2018-12-31 13:13] VITALS: BP 156/73
--- NOTE | 2018-12-31 13:52 | RAD ---
EXAM: Right wrist, 3 views; right hand, 3 views. HISTORY: Pain. Gout. COMPARISON: None. FINDINGS: 3 views of the right hand and wrist are obtained. There is partially calcified increased soft tissue surrounding the distal aspect of the ulna with small superimposed lucencies within the distal ulnar metaphysis, consistent with a history of gout. No acute fracture is seen. There are suspected chronic fragmented osteophytes along the dorsal aspect of the third and fourth distal phalanges. IMPRESSION: Soft tissue with associated calcification surrounding the distal aspect of the ulna and subchondral lucencies within the distal ulnar metaphysis, the appearance of which favors changes due to known gout. No pathologic fracture is seen. Electronically signed by: Estrella Hawthorne MD (12/31/2018 1:48 PM) [facility]
[2018-12-31] MEDS ORDERED: HYDR-3164 PO (14:06)
[2018-12-31] MEDS ORDERED: INDO50CA15 PO (14:06)
[2018-12-31] MEDS ORDERED: METH4TAB2 PO (14:06)
--- NOTE | 2018-12-31 14:06 | PHYS DOC ---
Past Medical History Past Medical History: Asthma, COPD, Diabetes-Type I, High Cholesterol, Hy pertension, Other Additional Past Medical Histor: SCHOLOSIS, BACK PAIN, GOUT Past Surgical History: Hip Replacement Additional Past Surgical Histo: R hip, Upper L kidney removed, 5 back surgeries due to fall Alcohol Use: None Drug Use: None Adult General Chief Complaint Chief Complaint: HAND PROBLEM [facility] HPI Patient is a 63-year-old female who presents with complaint of right hand and wrist pain primarily on the dorsal aspect that is worsened with flexion and extension of the wrist. She denies any recent trauma. She does have history of gout but does not feel like this is gout. She states the pain started yesterday. She rates pain as moderate.[] Review of Systems Review of Systems Constitutional: Denies fever or chills [] Respiratory: Denies cough or shortness of breath [] Cardiovascular: No additional information not addressed in HPI [] Musculoskeletal: Positive right hand and wrist pain [] Integument: Denies rash or skin lesions [] Neurologic: Denies headache, focal weakness or sensory changes [] Allergies Allergies Allergies Coded Allergies Type Severity Reaction Last Updated Verified aspirin Allergy Intermediate 06/13/18 Yes Physical Exam Physical Exam Constitutional: Well developed, well nourished, no acute distress, non-toxic appearance. [] Cardiovascular: Regular rate and rhythm[] Lungs & Thorax: Bilateral breath sounds clear to auscultation [] Abdomen: Bowel sounds normal, soft, no tenderness. [] Skin: Warm, dry, no erythema, no rash. [] Extremities: Examination of right hand and wrist demonstrates mild tenderness to palpation around the dorsal aspect of the wrist. Patient reports significant discomfort with flexion of wrist and mild to moderate discomfort with extension of wrist. No soft tissue swelling is noted. [] Current Patient Data Vital Signs Vital Signs Date Time Temp Pulse Resp B/P (MAP) Pulse Ox O2 Delivery O2 Flow Rate FiO2 12/31/18 13:13 98.9 87 15 156/73 (100) 94 Room Air 98.9 EKG EKG [] Radiology/Procedures Radiology/Procedures [] Impressions: PROCEDURE: HAND RIGHT 3V EXAM: Right wrist, 3 views; right hand, 3 views. HISTORY: Pain. Gout. COMPARISON: None. FINDINGS: 3 views of the right hand and wrist are obtained. There is partially calcified increased soft tissue surrounding the distal aspect of the ulna with small superimposed lucencies within the distal ulnar metaphysis, consistent with a history of gout. No acute fracture is seen. There are suspected chronic fragmented osteophytes along the dorsal aspect of the third and fourth distal phalanges. IMPRESSION: Soft tissue with associated calcification surrounding the distal aspect of the ulna and subchondral lucencies within the distal ulnar metaphysis, the appearance of which favors changes due to known gout. No pathologic fracture is seen. Electronically signed by: Estrella Hawthorne MD (12/31/2018 1:48 PM) [facility] Course & Med Decision Making Course & Med Decision Making Pertinent Labs and Imaging studies reviewed. (See chart for details) [] Dragon Disclaimer Dragon Disclaimer This electronic medical record was generated, in whole or in part, using a voice recognition dictation system. Departure Departure Impression: Primary Impression: Tendinitis of right wrist Disposition: 01 HOME, SELF-CARE Condition: STABLE Referrals: JACKIE REESE MD (PCP) Patient Instructions: Tendinitis Scripts Hydrocodone/Apap 5-325 (NORCO 5-325 TABLET) 1 Each Tablet 1 EACH PO PRN Q6HRS PRN for PAIN, #12 as needed for pain Prov: LION CARRANZA Jr. DO 12/31/18 Indomethacin (INDOMETHACIN) 50 Mg Capsule 1 CAP PO BID PRN for PAIN, #20 CAP Prov: LION CARRANZA Jr. DO 12/31/18 Methylprednisolone (MEDROL) 4 Mg Tab.ds.pk 1 PKG PO UD, #1 PKG Prov: LION CARRANZA Jr. DO 12/31/18 LION CARRANZA Jr. DO Dec 31, 2018 14:06
== END 2018-12-31 14:38 | disposition home or self-care (01) ==
LOC: ER 12:54
DX: M77.8 Other enthesopathies, not elsewhere classified (principal); M25.531 Pain in right wrist; J44.9 Chronic obstructive pulmonary disease, unspecified; E10.9 Type 1 diabetes mellitus without complications; E78.00 Pure hypercholesterolemia, unspecified; I10 Essential (primary) hypertension; Z96.641 Presence of right artificial hip joint; Z88.6 Allergy status to analgesic agent
CPT/HCPCS: 29125; 73110; 73130; 99284

== ENCOUNTER 2019-04-16 07:43 | Emergency (ER) | payer OTHER ==
[~2019-04-16] VITALS: Ht 157.5 cm; Wt 47.6 kg
[2019-04-16 07:43] VITALS: BP 167/91
[~2019-04-16 07:43] MED LIST changes: -GLIM1TAB3 PO; +GLIM1TAB7 PO; +INDO50CA15 PO
--- NOTE | 2019-04-16 08:18 | PHYS DOC ---
Past Medical History Past Medical History: Asthma, COPD, Diabetes-Type I, High Cholesterol, Hypertension, Other Additional Past Medical Histor: SCHOLOSIS, BACK PAIN, GOUT Past Surgical History: Hip Replacement Additional Past Surgical Histo: R hip, Upper L kidney removed, 5 back surgeries due to fall Smoking: Quit Less Than 1 Year Alcohol Use: None Drug Use: None Adult General Chief Complaint Chief Complaint: MECHANICAL FALL HPI HPI A 63-year-old female presents after a fall today. She felt dizzy and lightheaded after standing and fell backwards landing on her butt and hitting her head. Patient denies being on blood thinners. She reports right anterior chest wall pain, left parietal head pain, and right buttock pain. She rates her pain as 10 on a 10 and sharp. The pain does not radiate. She reports more recent falls and has trouble with balance. Patient denies any changes in vision, recent fever, or worsening shortness of breath. In the ER she denies dizziness or lightheadedness. Review of Systems Review of Systems Constitutional: Denies fever or chills Eyes: Denies redness or eye pain HENT: Denies nasal congestion or sore throat Respiratory: Reports cough and shortness of breath but denies mucus production. Cardiovascular: Denies palpitations, reports anterior chest pain worse with respiration GI: Denies abdominal pain, nausea, or vomiting : Denies dysuria or hematuria Musculoskeletal: Reports right buttock pain, right anterior chest wall pain. Integument: Denies rash or skin lesions Neurologic: Denies focal weakness or sensory changes, reports left parietal headache. Complete systems were reviewed and found to be within normal limits, except as documented in this note. Current Medications Current Medications Current Medications Medications (Trade) Dose Ordered Sig/Thanh Start Time Stop Time Status Last Admin Dose Admin Fentanyl Citrate (Fentanyl 2ml Vial) 50 mcg 1X ONCE 04/16/19 09:30 04/16/19 09:31 DC 04/16/19 09:23 50 MCG Allergies Allergies Allergies Coded Allergies Type Severity Reaction Last Updated Verified aspirin Allergy Intermediate 06/13/18 Yes Physical Exam Physical Exam Constitutional: Appears older than stated age, no acute distress, non-toxic appearance HENT: Normocephalic, atraumatic, oropharynx moist Eyes: PERRL, EOMI, conjunctiva normal, no discharge Neck: Normal range of motion, no tenderness, supple Cardiovascular: Heart rate normal, regular rhythm and right chest wall tender to palpation. Lungs & Thorax: Coarse breath sounds, diminished breath sounds. Abdomen: Soft, no tenderness Skin: Warm, dry, no erythema, no rash Back: Coccyx and buttock tender palpation, denies CVA tenderness Extremities: No tenderness, ROM intact, no edema Neurologic: Alert and oriented X 3, normal motor function, normal sensory function, no focal deficits noted Psychologic: Affect normal, judgement normal, mood normal Current Patient Data Vital Signs Vital Signs Date Time Temp Pulse Resp B/P (MAP) Pulse Ox O2 Delivery O2 Flow Rate FiO2 04/16/19 09:23 16 04/16/19 07:43 97.5 84 167/91 (116) 98 Room Air 97.5 Lab Values Laboratory Tests Test 04/16/19 08:10 04/16/19 10:00 White Blood Count 9.1 x10^3/uL (4.0-11.0) Red Blood Count 3.73 x10^6/uL (3.50-5.40) Hemoglobin 10.7 g/dL (12.0-15.5) L Hematocrit 32.6 % (36.0-47.0) L Mean Corpuscular Volume 87 fL (79-100) Mean Corpuscular Hemoglobin 29 pg (25-35) Mean Corpuscular Hemoglobin Concent 33 g/dL (31-37) Red Cell Distribution Width 15.6 % (11.5-14.5) H Platelet Count 321 x10^3/uL (140-400) Neutrophils (%) (Auto) 81 % (31-73) H Lymphocytes (%) (Auto) 8 % (24-48) L Monocytes (%) (Auto) 8 % (0-9) Eosinophils (%) (Auto) 3 % (0-3) Basophils (%) (Auto) 1 % (0-3) Neutrophils # (Auto) 7.3 x10^3/uL (1.8-7.7) Lymphocytes # (Auto) 0.7 x10^3/uL (1.0-4.8) L Monocytes # (Auto) 0.7 x10^3/uL (0.0-1.1) Eosinophils # (Auto) 0.2 x10^3/uL (0.0-0.7) Basophils # (Auto) 0.1 x10^3/uL (0.0-0.2) Sodium Level 139 mmol/L (136-145) Potassium Level 4.5 mmol/L (3.5-5.1) Chloride Level 102 mmol/L (98-107) Carbon Dioxide Level 35 mmol/L (21-32) H Anion Gap 2 (6-14) L Blood Urea Nitrogen 10 mg/dL (7-20) Creatinine 0.5 mg/dL (0.6-1.0) L Estimated GFR (Cockcroft-Gault) 125.0 BUN/Creatinine Ratio 20 (6-20) Glucose Level 83 mg/dL (70-99) Calcium Level 8.8 mg/dL (8.5-10.1) Magnesium Level 1.6 mg/dL (1.8-2.4) L Total Bilirubin 0.3 mg/dL (0.2-1.0) Aspartate Amino Transferase (AST) 14 U/L (15-37) L Alanine Aminotransferase (ALT) 15 U/L (14-59) Alkaline Phosphatase 69 U/L (46-116) Creatine Kinase 84 U/L (26-192) Creatine Kinase MB (Mass) 2.3 ng/mL (0.0-3.6) Creatine Kinase MB Relative Index 2.7 % (0-4) Troponin I Quantitative < 0.017 ng/mL (0.000-0.055) Total Protein 6.0 g/dL (6.4-8.2) L Albumin 2.8 g/dL (3.4-5.0) L Albumin/Globulin Ratio 0.9 (1.0-1.7) L Urine Collection Type Unknown Urine Color Yellow Urine Clarity Clear Urine pH 7.5 Urine Specific [place] 1.015 Urine Protein Negative mg/dL (NEG-TRACE) Urine Glucose (UA) Negative mg/dL (NEG) Urine Ketones (Stick) Negative mg/dL (NEG) Urine Blood Negative (NEG) Urine Nitrite Negative (NEG) Urine Bilirubin Negative (NEG) Urine Urobilinogen Dipstick 0.2 mg/dL (0.2 mg/dL) Urine Leukocyte Esterase Trace (NEG) Urine RBC Occ /HPF (0-2) Urine WBC 1-4 /HPF (0-4) Urine Squamous Epithelial Cells Few /LPF Urine Bacteria 0 /HPF (0-FEW) Urine Mucus Slight /LPF Laboratory Tests 04/16/19 08:10 Laboratory Tests 04/16/19 08:10 EKG EKG EKG at 0828 shows normal sinus rhythm at 80 bpm, an incomplete right bundle branch block, and Q wave in lead III Radiology/Procedures Radiology/Procedures TECHNIQUE: Frontal and lateral views of the chest are provided. FINDINGS: The cardiomediastinal silhouette is similar in appearance. Limited evaluation secondary to severe dextroscoliosis. There is normal lungs appears similar to prior examination. No significant pleural effusions, pulmonary vascular congestion or pneumothorax. IMPRESSION: Aeration of the lungs appears similar to the prior examination. Evaluation of the right chest is limited secondary to severe is dextroconvex scoliosis. CT HEAD AND CERVICAL SPINE WO Date: 04/16/2019 8:01 AM Clinical Indication: Pain after falling Comparison: 10/14/2018. Technique: 5 mm axial tomographic images were obtained of the head without contrast. These were viewed on brain and bone windows. Noncontrast CT of the cervical spine was performed. Sagittal and coronal reformats were performed and evaluated. One or more of the following dose reduction techniques were utilized: Automated exposure control (AEC), Adjustment of mA and/or kV according to patient size, Use of iterative reconstruction technique such as ASiR, CT scan done according to ALARA and image gently/image wisely HEAD FINDINGS: Mild generalized cerebral and cerebellar volume loss. Mild nonspecific periventricular hypoattenuation, most commonly seen with chronic small vessel ischemic disease. No intra- or extra-axial mass or fluid collection. No acute hemorrhage. The ventricles are normal in size, shape, and morphology. The nash-white matter junction is normal. The basilar cisterns are patent. The visualized paranasal sinuses are normal. The visualized portions of the orbits and globes are normal. The mastoid air cells are clear. No aggressive osseous lesion or fracture. CERVICAL SPINE FINDINGS: Mild left convex cervical curvature. Marked right convex thoracic curvature. No acute fracture. No aggressive lytic or blastic osseous lesions. Moderate multilevel degenerative disc space height loss. Multilevel mild and moderate spinal canal stenosis secondary to disc protrusions and marginal osteophytes. Multilevel mild and moderate neuroforaminal narrowing secondary to uncovertebral arthrosis. Multilevel mild and moderate facet arthrosis. The thyroid gland is normal. No cervical lymphadenopathy. he visualized aerodigestive tract is normal. The visualized portions of the lungs are clear. IMPRESSION: 1. No acute intracranial process. 2. No acute cervical spine fracture. TECHNIQUE: AP and lateral views of the sacrum and coccyx are provided with 3 total images. FINDINGS/ IMPRESSION: 1. Right total hip arthroplasty is identified without associated acute fracture. 2. Pelvic ring appears intact. Superior and inferior pubic rami are intact. Sacroiliac joints are well aligned. Sacral luciano are intact. 3. At the sacrococcygeal junction, there is minimal angulation of the cortex which could represent a nondisplaced or healed fracture which is not definitively seen on prior CT examination from 12/11/2018. Course & Med Decision Making Course & Med Decision Making Patient presented after a recent fall home in which she landed on her buttock and hit her head. She was not on a blood thinners. A CT scan of the head and spine was negative for fractures or bleeds. Radiographs of the sacrum showed no acute fractures. Labs were negative for electrolyte abnormalities or signs of infection. EKG showed no signs of a STEMI or arrhythmias. Patient most likely had a minor head injury, contusion of the right buttock and chest wall pain. The patient was given analgesics for home pain control until she can see her primary care physician. Dragon Disclaimer Dragon Disclaimer This electronic medical record was generated, in whole or in part, using a voice recognition dictation system. Departure Departure Impression: Primary Impression: Fall Additional Impressions: Minor head injury Contusion Chest wall pain Disposition: HOME, SELF-CARE Condition: STABLE Referrals: JACKIE REESE MD (PCP) Patient Instructions: Contusion, Wlyc-kq-[id number], Fall Prevention and Home Safety, [id number], Head Injury, Adult, Digu-jy-Ytwc Scripts Hydrocodone/Apap 5-325 (NORCO 5-325 TABLET) 1 Each Tablet 0.5-1 TAB PO PRN Q6HRS PRN for PAIN, #8 TAB 0 Refills Prov: AKI VIZCARRA Van GOVEA 04/16/19 Problem Qualifiers Primary Impression: Fall Encounter type: initial encounter Qualified Codes: W19.XXXA - Unspecified fall, initial encounter Additional Impressions: Minor head injury Encounter type: initial encounter Qualified Codes: S09.90XA - Unspecified injury of head, initial encounter Contusion Encounter type: initial encounter Contusion area: pelvic area Qualified Codes: S30.0XXA - Contusion of lower back and pelvis, initial encounter AKI VIZCARRA DO Apr 16, 2019 08:18
[2019-04-16 08:20] LABS: BASO # 0.1 x10^3/uL (0.0-0.2); BASO % 1 % (0-3); EOS # 0.2 x10^3/uL (0.0-0.7); EOS % 3 % (0-3); HEMATOCRIT 32.6 % (36.0-47.0); HEMOGLOBIN 10.7 g/dL (12.0-15.5); LYMPH # 0.7 x10^3/uL (1.0-4.8); LYMPH % 8 % (24-48); MEAN CORPUSCULAR HEMOGLOBIN 29 pg (25-35); MEAN CORPUSCULAR HGB CONC 33 g/dL (31-37); MEAN CORPUSCULAR VOLUME 87 fL (79-100); MONO # 0.7 x10^3/uL (0.0-1.1); MONO % 8 % (0-9); NEUT # 7.3 x10^3/uL (1.8-7.7); NEUT % 81 % (31-73); PLATELET COUNT 321 x10^3/uL (140-400); RED BLOOD COUNT 3.73 x10^6/uL (3.50-5.40); RED CELL DISTRIBUTION WIDTH 15.6 % (11.5-14.5); WHITE BLOOD COUNT 9.1 x10^3/uL (4.0-11.0)
[2019-04-16 08:44] LABS: CALCIUM 8.8 mg/dL (8.5-10.1); CREATININE 0.5 mg/dL (0.6-1.0); POTASSIUM 4.5 mmol/L (3.5-5.1)
[2019-04-16 08:50] LABS: ALBUMIN 2.8 g/dL (3.4-5.0); ALBUMIN/GLOBULIN RATIO 0.9 (1.0-1.7); MAGNESIUM 1.6 mg/dL (1.8-2.4); TOTAL BILIRUBIN 0.3 mg/dL (0.2-1.0)
--- NOTE | 2019-04-16 08:52 | RAD ---
Chest radiograph 04/16/2019 9:27 AM INDICATION: Right chest wall pain COMPARISON: 03/27/2019 TECHNIQUE: Frontal and lateral views of the chest are provided. FINDINGS: The cardiomediastinal silhouette is similar in appearance. Limited evaluation secondary to severe dextroscoliosis. There is normal lungs appears similar to prior examination. No significant pleural effusions, pulmonary vascular congestion or pneumothorax. IMPRESSION: Aeration of the lungs appears similar to the prior examination. Evaluation of the right chest is limited secondary to severe is dextroconvex scoliosis. Electronically signed by: Dominga Choudhary MD (04/16/2019 8:50 AM) [id number]
--- NOTE | 2019-04-16 08:56 | RAD ---
SACRUM COCCYX 3V 04/16/2019 9:29 AM INDICATION: Right chest wall pain COMPARISON: CT abdomen/pelvis 12/11/2018. TECHNIQUE: AP and lateral views of the sacrum and coccyx are provided with 3 total images. FINDINGS/ IMPRESSION: 1. Right total hip arthroplasty is identified without associated acute fracture. 2. Pelvic ring appears intact. Superior and inferior pubic rami are intact. Sacroiliac joints are well aligned. Sacral luciano are intact. 3. At the sacrococcygeal junction, there is minimal angulation of the cortex which could represent a nondisplaced or healed fracture which is not definitively seen on prior CT examination from 12/11/2018. Electronically signed by: Dominga Choudhary MD (04/16/2019 8:53 AM) [id number]
--- NOTE | 2019-04-16 09:04 | RAD ---
CT HEAD AND CERVICAL SPINE WO Date: 04/16/2019 8:01 AM Clinical Indication: Pain after falling Comparison: 10/14/2018. Technique: 5 mm axial tomographic images were obtained of the head without contrast. These were viewed on brain and bone windows. Noncontrast CT of the cervical spine was performed. Sagittal and coronal reformats were performed and evaluated. One or more of the following dose reduction techniques were utilized: Automated exposure control (AEC), Adjustment of mA and/or kV according to patient size, Use of iterative reconstruction technique such as ASiR, CT scan done according to ALARA and image gently/image wisely HEAD FINDINGS: Mild generalized cerebral and cerebellar volume loss. Mild nonspecific periventricular hypoattenuation, most commonly seen with chronic small vessel ischemic disease. No intra- or extra-axial mass or fluid collection. No acute hemorrhage. The ventricles are normal in size, shape, and morphology. The nash-white matter junction is normal. The basilar cisterns are patent. The visualized paranasal sinuses are normal. The visualized portions of the orbits and globes are normal. The mastoid air cells are clear. No aggressive osseous lesion or fracture. CERVICAL SPINE FINDINGS: Mild left convex cervical curvature. Marked right convex thoracic curvature. No acute fracture. No aggressive lytic or blastic osseous lesions. Moderate multilevel degenerative disc space height loss. Multilevel mild and moderate spinal canal stenosis secondary to disc protrusions and marginal osteophytes. Multilevel mild and moderate neuroforaminal narrowing secondary to uncovertebral arthrosis. Multilevel mild and moderate facet arthrosis. The thyroid gland is normal. No cervical lymphadenopathy. he visualized aerodigestive tract is normal. The visualized portions of the lungs are clear. IMPRESSION: 1. No acute intracranial process. 2. No acute cervical spine fracture. Electronically signed by: Mazin Chen MD (04/16/2019 9:01 AM) [id number]
[2019-04-16] MEDS ORDERED: fentaNYL PF VIAL 100 MCG/2 ML VIAL IV ONE (09:30)
[2019-04-16 10:15] LABS: BILIRUBIN,URINE NEGATIVE (NEG); CLARITY,URINE CLEAR; COLOR,URINE YELLOW; NITRITE,URINE NEGATIVE (NEG); PH,URINE 7.5; PROTEIN,URINE NEGATIVE (NEG-TRACE); UROBILINOGEN,URINE 0.2 mg/dL (0.2 mg/dL)
[2019-04-16 10:20] LABS: RBC,URINE OCC /HPF (0-2)
[2019-04-16 10:21] LABS: BACTERIA,URINE 0 /HPF (0-FEW); SQUAMOUS EPITHELIAL CELL,UR FEW /LPF
[2019-04-16] MEDS ORDERED: HYDR-3164 PO (11:06)
--- NOTE | 2019-04-17 08:52 | EKG ---
[facility] [address] [place] [address] Test Date: 2019-04-16 Test Time: 08:28:01 Pat Name: TREASURE CALVERT Department: Room: Gender: F Critical Care Technician: : 1955 Requested By: AKI VIZCARRA Order Number: [id number] Reading MD: Measurements Intervals [place] Rate: 80 P: 41 ND: 148 QRS: -36 QRSD: 118 T: 36 QT: 378 QTc: 440 Interpretive Statements SINUS RHYTHM ABNORMAL LEFT AXIS DEVIATION R-S TRANSITION ZONE IN V LEADS DISPLACED TO THE RIGHT LEFT ANTERIOR FASCICULAR BLOCK INCOMPLETE RIGHT BUNDLE BRANCH BLOCK RVH WITH REPOLARIZATION ABNORMALITY ABNORMAL ECG RI6.01 No previous ECG available for comparison
== END 2019-04-16 11:10 ==
LOC: ER 07:43
DX: S09.90XA Unspecified injury of head, initial encounter (principal); S20.211A Contusion of right front wall of thorax, initial encounter; S30.0XXA Contusion of lower back and pelvis, initial encounter; R42 Dizziness and giddiness; J45.909 Unspecified asthma, uncomplicated; E10.9 Type 1 diabetes mellitus without complications; E78.00 Pure hypercholesterolemia, unspecified; I10 Essential (primary) hypertension; Z87.39 Personal history of other diseases of the musculoskeletal system and connective tissue; Z96.649 Presence of unspecified artificial hip joint; Z98.890 Other specified postprocedural states; Z88.6 Allergy status to analgesic agent; W18.39XA Other fall on same level, initial encounter; Y93.89 Activity, other specified; Y92.89 Other specified places as the place of occurrence of the external cause; Y99.8 Other external cause status
CPT/HCPCS: 36415; 70450; 71046; 72125; 72220; 80053; 81001; 82553; 83735; 84484; 85025; 87086; 93005; 96374; 99285; J3010

== ENCOUNTER 2019-06-24 13:00 | Inpatient (IN) | payer OTHER ==
[~2019-06-24] VITALS: Ht 157.5 cm; Wt 56.6 kg
[2019-06-24] MEDS ORDERED: ALBUTEROL SULFATE 2.5 MG/3 ML NEBU. CONT NEB ONE (13:15)
[2019-06-24] MEDS ORDERED: methylPREDNISolone SOD SUCC PF 125 MG/2 ML VIAL. IV ONE (13:15)
--- NOTE | 2019-06-24 13:17 | PHYS DOC ---
Past Medical History Past Medical History: Asthma, CHF, COPD, Diabetes-Type I, High Cholesterol, Hypertension, Other Additional Past Medical Histor: SCHOLOSIS, BACK PAIN, GOUT Past Surgical History: Hip Replacement Additional Past Surgical Histo: R hip, Upper L kidney removed, 5 back surgeries due to fall Smoking Status: Former Smoker Alcohol Use: None Drug Use: None Adult General Chief Complaint Chief Complaint: SHORTNESS OF BREATH HPI HPI Patient is a 63 year old female who presents with last 4 days she has been increasingly short of air. She states she has been using her nebulizers at home taking all of her medications but they are not working. Patient usually wears 2 L of oxygen at home. In the ED on 2 L of oxygen patient is 90%. Speaks in full clear sentences. Patient states she has coughing and the other day she coughed up mucus that was yellow in color. She denies fever, travel, nausea, vomiting, abdominal pain, diarrhea, LOC, dizziness, headache, vision changes, focal weakness, numbness or tingling, chest pain. Review of Systems Review of Systems Respiratory: cough or shortness of breath [] All other systems were reviewed and found to be within normal limits, except as documented in this note. Current Medications Current Medications Current Medications Medications (Trade) Dose Ordered Sig/Thanh Start Time Stop Time Status Last Admin Dose Admin Acetaminophen (Tylenol) 650 mg PRN Q4HRS PRN 06/24/19 15:15 06/25/19 15:14 Albuterol Sulfate (Ventolin Neb Soln) 10 mg 1X ONCE 06/24/19 13:15 06/24/19 13:16 DC 06/24/19 13:36 10 MG Albuterol/ Ipratropium (Duoneb) 3 ml RTQID 06/24/19 16:00 06/25/19 15:59 Doxycycline Hyclate 100 mg/ Dextrose 100 ml @ 50 mls/hr 1X ONCE 06/24/19 13:45 06/24/19 15:44 DC 06/24/19 13:45 50 MLS/HR Fentanyl Citrate (Fentanyl 2ml Vial) 50 mcg PRN Q1HR PRN 06/24/19 15:15 06/25/19 15:14 Methylprednisolone Sodium Succinate (SOLU-Medrol 125MG VIAL) 125 mg 1X ONCE 06/24/19 13:15 06/24/19 13:16 DC 06/24/19 13:38 125 MG Ondansetron HCl (Zofran) 4 mg PRN Q8HRS PRN 06/24/19 15:15 06/25/19 15:14 Allergies Allergies Allergies Coded Allergies Type Severity Reaction Last Updated Verified aspirin Allergy Intermediate 06/13/18 Yes Physical Exam Physical Exam Constitutional: Well developed, well nourished, no acute distress, non-toxic appearance. [] HENT: Normocephalic, atraumatic, bilateral external ears normal, oropharynx moist, no oral exudates, nose normal. [] Eyes: PERRLA, EOMI, conjunctiva normal, no discharge. [] Neck: Normal range of motion, no tenderness, supple, no stridor. [] Cardiovascular:Heart rate regular rhythm, no murmur [] Lungs & Thorax: Bilateral upper breath sounds expiratory wheezing and lower diminished to auscultation [] Abdomen: Bowel sounds normal, soft, no tenderness, no masses, no pulsatile masses. [] Skin: Warm, dry, no erythema, no rash. [] Back: No tenderness, no CVA tenderness. [] Extremities: No tenderness, no cyanosis, no clubbing, ROM intact, no edema. [] Neurologic: Alert and oriented X 3, normal motor function, normal sensory function, no focal deficits noted. [] Psychologic: Affect normal, judgement normal, mood normal. [] Current Patient Data Vital Signs Vital Signs Date Time Temp Pulse Resp B/P (MAP) Pulse Ox O2 Delivery O2 Flow Rate FiO2 06/24/19 13:37 93 Nasal Cannula 2.0 06/24/19 13:06 98.5 82 20 136/78 (97) 98.5 Lab Values Laboratory Tests Test 06/24/19 13:00 06/24/19 13:06 06/24/19 13:35 White Blood Count 4.9 x10^3/uL (4.0-11.0) Red Blood Count 3.71 x10^6/uL (3.50-5.40) Hemoglobin 10.9 g/dL (12.0-15.5) L Hematocrit 32.7 % (36.0-47.0) L Mean Corpuscular Volume 88 fL (79-100) Mean Corpuscular Hemoglobin 30 pg (25-35) Mean Corpuscular Hemoglobin Concent 34 g/dL (31-37) Red Cell Distribution Width 14.1 % (11.5-14.5) Platelet Count 430 x10^3/uL (140-400) H Neutrophils (%) (Auto) 68 % (31-73) Lymphocytes (%) (Auto) 15 % (24-48) L Monocytes (%) (Auto) 10 % (0-9) H Eosinophils (%) (Auto) 6 % (0-3) H Basophils (%) (Auto) 1 % (0-3) Neutrophils # (Auto) 3.3 x10^3/uL (1.8-7.7) Lymphocytes # (Auto) 0.7 x10^3/uL (1.0-4.8) L Monocytes # (Auto) 0.5 x10^3/uL (0.0-1.1) Eosinophils # (Auto) 0.3 x10^3/uL (0.0-0.7) Basophils # (Auto) 0.1 x10^3/uL (0.0-0.2) Sodium Level 139 mmol/L (136-145) Potassium Level 4.6 mmol/L (3.5-5.1) Chloride Level 100 mmol/L (98-107) Carbon Dioxide Level 33 mmol/L (21-32) H Anion Gap 6 (6-14) Blood Urea Nitrogen 10 mg/dL (7-20) Creatinine 0.7 mg/dL (0.6-1.0) Estimated GFR (Cockcroft-Gault) 84.8 BUN/Creatinine Ratio 14 (6-20) Glucose Level 93 mg/dL (70-99) Lactic Acid Level 0.4 mmol/L (0.4-2.0) Calcium Level 9.0 mg/dL (8.5-10.1) Total Bilirubin 0.4 mg/dL (0.2-1.0) Aspartate Amino Transferase (AST) 13 U/L (15-37) L Alanine Aminotransferase (ALT) 12 U/L (14-59) L Alkaline Phosphatase 97 U/L (46-116) Troponin I Quantitative < 0.017 ng/mL (0.000-0.055) YW-Hsk-B-Type Natriuretic Peptide 336 pg/mL (0-124) H Total Protein 6.8 g/dL (6.4-8.2) Albumin 3.4 g/dL (3.4-5.0) Albumin/Globulin Ratio 1.0 (1.0-1.7) O2 Saturation 97 % (92-99) Arterial Blood pH 7.36 (7.35-7.45) Arterial Blood pCO2 at Patient Temp 45 mmHg (35-46) Arterial Blood pO2 at Patient Temp 110 mmHg (65-108) H Arterial Blood HCO3 25 mmol/L (21-28) Arterial Blood Base Excess 0 mmol/L (-3-3) Oxyhemoglobin 96.8 % Methemoglobin 0.4 % (0.0-1.9) Carbon Monoxide, Quantitative 0.2 % (0.0-1.9) FiO2 28 Influenza Type A Antigen Negative (NEGATIVE) Influenza Type B Antigen Negative (NEGATIVE) Laboratory Tests 06/24/19 13:00 Laboratory Tests 06/24/19 13:00 EKG EKG Sinus Rhythm and no STEMI Interpretation Time: [address] Givens Radiology/Procedures Radiology/Procedures [] Impressions: [facility] [address] [place] [address] IMAGING REPORT Signed PATIENT: TREASURE CALVERT AACCOUNT: [id number] : 1955 LOCATION: ER AGE: 63 SEX: F EXAM STATUS: PRE ER ORD. PHYSICIAN: HALEIGH WATTS APRN REASON: soa, cough PROCEDURE: PORTABLE CHEST 1V EXAM: PORTABLE CHEST 1V INDICATION: Cough, shortness of air. TECHNIQUE: Single AP view COMPARISON: 04/16/2019 chest x-ray FINDINGS: Marked rotatory scoliosis of the thoracic spine with rightward convexity curvature is redemonstrated, distorting the patient's anatomy. The heart size is unchanged, upper normal. The great vessels appear unremarkable. There is no hilar or mediastinal mass. Mild left basilar opacity suggestive of atelectasis. Otherwise lungs are clear. There is no pleural effusion or pneumothorax. There are no significant osseous abnormalities. IMPRESSION: Mild left basilar opacity could represent atelectasis or other acute airspace process in the appropriate clinical context. Correlate for any clinical evidence of pneumonia. Electronically signed by: Mariaa Davila MD (06/24/2019 1:33 PM) [id number] DICTATED and SIGNED BY: MARIAA DAVILA MD DATE: 06/24/19 1333 [facility] [address] [place] [address] IMAGING REPORT Signed PATIENT: TREASURE CALVERT AACCOUNT: [id number] : 1955 LOCATION: ER AGE: 63 SEX: F EXAM STATUS: REG ER ORD. PHYSICIAN: HALEIGH WATTS APRN REASON: abdnormal chest xray PROCEDURE: CT CHEST WO CONTRAST Examination: CT chest without contrast HISTORY: History of abnormal chest x-ray COMPARISON: 07/13/2018 TECHNIQUE: Axial CT images of chest were performed without contrast. Coronal and sagittal reformats are performed Exposure: One or more of the following individualized dose reduction techniques were utilized for this examination: 1. Automated exposure control 2. Adjustment of the mA and/or kV according to patient size 3. Use of iterative reconstruction technique FINDINGS: The ascending aorta measures 4.2 cm in transverse dimension. Mild cardiomegaly. Examination limited thoracic scoliosis and lack of IV contrast. Consolidation of the right lower lobe of the lung is similar to prior exam likely chronic consolidation. Mild airspace opacity identified in the left lower lobe of the lung likely atelectasis or infiltrates Multiple cystic structures identified in the liver probably hepatic cysts. Bony ankylosis the thoracic spine is identified. IMPRESSION: 1. Consolidation of the right lower lobe of the lung likely chronic consolidation is unchanged. 2. Mild airspace opacity identified left lingula likely atelectasis or infiltrate. Electronically signed by: Olvin Fink MD (06/24/2019 3:56 PM) [id number] DICTATED and SIGNED BY: OLVIN FINK MD DATE: 06/24/19 1556 Course & Med Decision Making Course & Med Decision Making Pertinent Labs and Imaging studies reviewed. (See chart for details) Speaks in full clear sentences. Ambulatory with a steady gait. Skin pink warm and dry. Bilateral upper lung lobes have expiratory wheezes and lower lung lobes are diminished. No extremity swelling. No tripoding. I have spoken to Dr. Harris for admission. He states to go ahead and CT the patient's chest. Patient is admitted to the hospital. [] Dragon Disclaimer Dragon Disclaimer This electronic medical record was generated, in whole or in part, using a voice recognition dictation system. Departure Departure Impression: Primary Impression: COPD exacerbation Disposition: ADMITTED INPATIENT Admitting Physician: LETI Condition: STABLE Referrals: JACKIE REESE MD (PCP) HALEIGH WATTS APRN Jun 24, 2019 13:17
[2019-06-24 13:20] LABS: BASO # 0.1 x10^3/uL (0.0-0.2); BASO % 1 % (0-3); EOS # 0.3 x10^3/uL (0.0-0.7); EOS % 6 % (0-3); HEMATOCRIT 32.7 % (36.0-47.0); HEMOGLOBIN 10.9 g/dL (12.0-15.5); LYMPH # 0.7 x10^3/uL (1.0-4.8); LYMPH % 15 % (24-48); MEAN CORPUSCULAR HEMOGLOBIN 30 pg (25-35); MEAN CORPUSCULAR HGB CONC 34 g/dL (31-37); MEAN CORPUSCULAR VOLUME 88 fL (79-100); MONO # 0.5 x10^3/uL (0.0-1.1); MONO % 10 % (0-9); NEUT # 3.3 x10^3/uL (1.8-7.7); NEUT % 68 % (31-73); PLATELET COUNT 430 x10^3/uL (140-400); RED BLOOD COUNT 3.71 x10^6/uL (3.50-5.40); RED CELL DISTRIBUTION WIDTH 14.1 % (11.5-14.5); WHITE BLOOD COUNT 4.9 x10^3/uL (4.0-11.0)
[2019-06-24 13:26] LABS: CREATININE 0.7 mg/dL (0.6-1.0); GFR 84.8; POTASSIUM 4.6 mmol/L (3.5-5.1)
[2019-06-24 13:34] LABS: ALBUMIN 3.4 g/dL (3.4-5.0); TOTAL BILIRUBIN 0.4 mg/dL (0.2-1.0); TOTAL PROTEIN 6.8 g/dL (6.4-8.2)
--- NOTE | 2019-06-24 13:36 | RAD ---
EXAM: PORTABLE CHEST 1V INDICATION: Cough, shortness of air. TECHNIQUE: Single AP view COMPARISON: 04/16/2019 chest x-ray FINDINGS: Marked rotatory scoliosis of the thoracic spine with rightward convexity curvature is redemonstrated, distorting the patient's anatomy. The heart size is unchanged, upper normal. The great vessels appear unremarkable. There is no hilar or mediastinal mass. Mild left basilar opacity suggestive of atelectasis. Otherwise lungs are clear. There is no pleural effusion or pneumothorax. There are no significant osseous abnormalities. IMPRESSION: Mild left basilar opacity could represent atelectasis or other acute airspace process in the appropriate clinical context. Correlate for any clinical evidence of pneumonia. Electronically signed by: Alona Davila MD (06/24/2019 1:33 PM) [id number]
[2019-06-24 13:41] LABS: BASE EXCESS COOX 0 mmol/L (-3-3); HCO3 COOX 25 mmol/L (21-28); METHEMOGLOBIN 0.4 % (0.0-1.9); OXYHEMOGLOBIN 96.8 %; PCO2 COOX 45 mmHg (35-46); PO2 COOX 110 mmHg (65-108); SAT O2 COOX 97 % (92-99)
[2019-06-24] MEDS ORDERED: DOXYCYCLINE HYCLATE 100 MG in IV DEXTROSE 5% 100ML 100 ML IV ONE (13:45)
[2019-06-24 14:06] LABS: INFLUENZA A PATIENT NEGATIVE (NEGATIVE); INFLUENZA B PATIENT NEGATIVE (NEGATIVE)
[2019-06-24] MEDS ORDERED: ACETAMINOPHEN 325 MG TABLET. PO PRN (15:15)
[2019-06-24] MEDS ORDERED: fentaNYL PF VIAL 100 MCG/2 ML VIAL IV PRN (15:15)
[2019-06-24] MEDS ORDERED: ONDANSETRON PF 4 MG/2 ML VIAL. IV PRN (15:15)
[2019-06-24] MEDS: IPRATRPIUM/ALBUTEROL 0.5/2.5MG 3 ML NEBU. NEB SCH ×2 (15:39→20:00)
--- NOTE | 2019-06-24 15:59 | RAD ---
Examination: CT chest without contrast HISTORY: History of abnormal chest x-ray COMPARISON: 07/13/2018 TECHNIQUE: Axial CT images of chest were performed without contrast. Coronal and sagittal reformats are performed Exposure: One or more of the following individualized dose reduction techniques were utilized for this examination: 1. Automated exposure control 2. Adjustment of the mA and/or kV according to patient size 3. Use of iterative reconstruction technique FINDINGS: The ascending aorta measures 4.2 cm in transverse dimension. Mild cardiomegaly. Examination limited thoracic scoliosis and lack of IV contrast. Consolidation of the right lower lobe of the lung is similar to prior exam likely chronic consolidation. Mild airspace opacity identified in the left lower lobe of the lung likely atelectasis or infiltrates Multiple cystic structures identified in the liver probably hepatic cysts. Bony ankylosis the thoracic spine is identified. IMPRESSION: 1. Consolidation of the right lower lobe of the lung likely chronic consolidation is unchanged. 2. Mild airspace opacity identified left lingula likely atelectasis or infiltrate. Electronically signed by: Olvin Fink MD (06/24/2019 3:56 PM) [id number]
[2019-06-24 16:01] LABS: BILIRUBIN,URINE NEGATIVE (NEG); CLARITY,URINE CLEAR; COLOR,URINE YELLOW; NITRITE,URINE NEGATIVE (NEG); PROTEIN,URINE NEGATIVE (NEG-TRACE)
[2019-06-24 16:10] LABS: BACTERIA,URINE 0 /HPF (0-FEW); RBC,URINE 0 /HPF (0-2)
[2019-06-24 16:11] LABS: SQUAMOUS EPITHELIAL CELL,UR OCC /LPF
--- NOTE | 2019-06-24 17:19 | PDOC1 ---
History and Physical Date of Admission Date of Admission DATE: 06/24/19 TIME: 17:18 Identification/Chief Complaint Chief Complaint SEEN IN ER , 63 year old female who presents with last 4 days she has been increasingly soa She states she has been using her nebulizers at home taking all of her medications usually wears 2 L of oxygen at home. In the ED on 2 L of oxygen patient is 90%. Patient states she has coughing // coughed up mucus that was yellow in color. denies fever, travel, nausea, vomiting, abdominal pain, diarrhea, LOC, dizziness, headache, vision changes, focal weakness, numbness or tingling, chest pain. Past Medical History Cardiovascular: CAD, CHF, HTN, Hyperlipidemia Pulmonary: Asthma, COPD CENTRAL NERVOUS SYSTEM: Vertigo, Other GI: GERD Heme/Onc: No pertinent hx Hepatobiliary: No pertinent hx Psych: No pertinent hx Musculoskeletal: Osteoarthritis, Other Rheumatologic: No pertinent hx Infectious disease: No pertinent hx Renal/: No pertinent hx Endocrine: Diabetes Past Surgical History Past Surgical History: Total hip replacement, Other Family History Family History fhx htn Cardiovascular: CAD, CHF, HTN, Hyperlipidemia Pulmonary: Asthma, COPD CENTRAL NERVOUS SYSTEM: Vertigo, Other GI: GERD Heme/Onc: No pertinent hx Hepatobiliary: No pertinent hx Psych: No pertinent hx Musculoskeletal: Osteoarthritis, Other Rheumatologic: No pertinent hx Infectious disease: No pertinent hx Renal/: No pertinent hx Endocrine: Diabetes Past Surgical History Past Surgical History: Total hip replacement, Other Family History Family History: Cancer, Heart Disease, Hypertension Social History Smoke: <1 pack per day ALCOHOL: none Drugs: None Family History: Cancer, Heart Disease, Hypertension Social History Smoke: Quit ALCOHOL: none Drugs: None Current Medications Current Medications Current Medications Albuterol Sulfate (Ventolin Neb Soln) 10 mg 1X ONCE CONT NEB Last administered on 06/24/19at 13:36; Start 06/24/19 at 13:15; Stop 06/24/19 at 13:16; Status DC Methylprednisolone Sodium Succinate (SOLU-Medrol 125MG VIAL) 125 mg 1X ONCE IV Last administered on 06/24/19at 13:38; Start 06/24/19 at 13:15; Stop 06/24/19 at 13:16; Status DC Doxycycline Hyclate 100 mg/ Dextrose 100 ml @ 50 mls/hr 1X ONCE IV Last administered on 06/24/19at 13:45; Start 06/24/19 at 13:45; Stop 06/24/19 at 15:44; Status DC Ondansetron HCl (Zofran) 4 mg PRN Q8HRS PRN IV NAUSEA/VOMITING; Start 06/24/19 at 15:15; Stop 06/24/19 at 16:51; Status DC Fentanyl Citrate (Fentanyl 2ml Vial) 50 mcg PRN Q1HR PRN IV PAIN; Start 06/24/19 at 15:15; Stop 06/24/19 at 16:51; Status DC Acetaminophen (Tylenol) 650 mg PRN Q4HRS PRN PO FEVER; Start 06/24/19 at 15:15; Stop 06/24/19 at 16:51; Status DC Albuterol/ Ipratropium (Duoneb) 3 ml RTQID NEB ; Start 06/24/19 at 16:00; Stop 06/24/19 at 16:51; Status DC Active Scripts Active [place] 5-325 Tablet (Acetaminophen/Hydrocodone Bitart) 1 Each Tablet 0.5-1 Tab PO PRN Q6HRS PRN Doxycycline Monohydrate 100 Mg Capsule 1 Cap PO BID 5 Days Prednisone 20 Mg Tablet 1 Tab PO DAILY 5 Days Indomethacin 50 Mg Capsule 1 Cap PO BID PRN Zofran (Ondansetron Hcl) 4 Mg Tablet 1 Tab PO Q8HRS PRN Tramadol Hcl 50 Mg Tablet 50 Mg PO PRN Q6HRS PRN 6 Days Metoclopramide Hcl 5 Mg Tablet 5 Mg PO PRN BFRMEALHC PRN Protonix Packet (Pantoprazole Sodium) 40 Mg Granpkt.dr 40 Mg PO DAILY 30 Days Reported NITROGLYCERIN SubLingual (Nitroglycerin) 0.4 Mg Tab.subl 1 Tab SL UD Benzonatate 100 Mg Capsule 1 Cap PO TID Glimepiride 1 Mg Tablet 1 Tab PO DAILY Duoneb 0.5-3(2.5) Mg/3 Ml (Albuterol/Ipratropium) 3 Ml Ampul.neb 3 Ml NEB BID Symbicort 160-4.5 Mcg Inhaler (Budesonide/Formoterol Fumarate) 10.2 Gm Hfa.aer.ad 2 Puff IH BID Mucinex (Guaifenesin) 600 Mg Tablet.er 1 Tab PO BID Vitamin D (Cholecalciferol (Vitamin D3)) 50,000 Unit Capsule 50,000 Unit PO WEEKLY Ditropan Xl (Oxybutynin Chloride) 5 Mg Tab.er.24 5 Mg PO DAILY Losartan Potassium 50 Mg Tablet 50 Mg PO DAILY Simvastatin 10 Mg Tablet 10 Mg PO HS Proair Hfa Inhaler (Albuterol Sulfate) 8.5 Gm Hfa.aer.ad 17 Gm IH Q4HRS W/A PRN Spiriva (Tiotropium Grant) 18 Mcg Cap.w.dev 18 Mcg IH DAILY Singulair Tablet (Montelukast Sodium) 10 Mg Tablet 10 Mg PO HS Diltiazem 24HR Cd (Diltiazem Hcl) 120 Mg Cap.er.24h 120 Mg PO DAILY Allergies Allergies: Coded Allergies: aspirin (Verified Allergy, Intermediate, 06/13/18) TRIGGER ASTHMA ROS Review of System Review of Systems Review of Systems Respiratory: cough or shortness of breath [] 14 pt systems were reviewed and found to be within normal limits, except as documented General: YES: Fatigue PSYCHOLOGICAL ROS: No: Anxiety, Behavioral Disorder, Concentration difficultie, Decreased libido, Depression, Disorientation, Hallucinations, Hostility, Irritablity, Memory difficulties, Mood Swings, Obsessive thoughts, Physical abuse, Sexual abuse, Sleep disturbances, Suicidal ideation, Other HEENT: No: Heacaches, Visual Changes, Hearing change, Nasal congestion, Nasal discharge, Oral lesions, Sinus pain, Sore Throat, Epistaxis, Sneezing, Snoring, Tinnitus, Vertigo, Vocal changes, Other ALLERGY AND IMMUNOLOGY: No: Hives, Insect Bite Sensitivity, Itchy/Watery Eyes, Nasal Congestion, Post Nasal Drip, Seasonal Allergies, Other Hematological and Lymphatic: No: Bleeding Problems, Blood Clots, Blood Transfusions, Brusing, Night Sweats, Pallor, Swollen Lymph Nodes, Other Respiratory: YES: Cough, Shortness of breath, SOB with excertion Cardiovascular: No Chest Pain, No Palpitations, No Orthopnea, No Paroxysmal Noc. Dyspnea, No Edema, No Lt Headedness, No Other Gastrointestinal: No Nausea, No Vomiting, No Abdominal Pain, No Diarrhea, No Constipation, No Melena, No Hematochezia, No Other Musculoskeletal: Yes Joint Stiffness Skin: Yes Dry Skin; No Eczema, No Hair Changes, No Lumps, No Mole Changes, No Mottling, No Nail Changes, No Pruritus, No Rash, No Skin Lesion Changes, No Other, No Acne Physical Exam Physical Exam Physical Exam Physical Exam Constitutional: Well developed, well nourished, no acute distress, non-toxic appearance. [] HENT: Normocephalic, atraumatic, bilateral external ears normal, oropharynx moist, no oral exudates, nose normal. [] Eyes: PERRLA, EOMI, conjunctiva normal, no discharge. [] Neck: Normal range of motion, no tenderness, supple, no stridor. [] Cardiovascular:Heart rate regular rhythm, no murmur [] Lungs & Thorax: Bilateral upper breath sounds expiratory wheezing and lower diminished to auscultation [] Abdomen: Bowel sounds normal, soft, no tenderness, no masses, no pulsatile masses. [] Skin: Warm, dry, no erythema, no rash. [] Back: No tenderness, no CVA tenderness. [] Extremities: No tenderness, no cyanosis, no clubbing, ROM intact, no edema. [] Neurologic: Alert and oriented X 3, normal motor function, normal sensory function, no focal deficits noted. [] Psychologic: Affect normal, judgement normal, mood normal. [] General: Alert, Oriented X3, Cooperative, No acute distress HEENT: EOMI, Mucous membr. moist/pink Heart: no thrills Breasts: Not examined Abdomen: Normal bowel sounds, Soft Extremities: No cyanosis Neuro: Normal speech, Cranial nerves 3-12 NL Psych/Mental Status: Mental status NL, Mood NL Vitals Vitals Vital Signs Date Time Temp Pulse Resp B/P (MAP) Pulse Ox O2 Delivery O2 Flow Rate FiO2 06/24/19 16:00 82 21 119/72 (88) 99 Nasal Cannula 3.0 06/24/19 13:06 98.5 98.5 Labs Labs Laboratory Tests Test 06/24/19 13:00 06/24/19 13:06 06/24/19 13:35 06/24/19 15:45 White Blood Count 4.9 x10^3/uL (4.0-11.0) Red Blood Count 3.71 x10^6/uL (3.50-5.40) Hemoglobin 10.9 g/dL (12.0-15.5) Hematocrit 32.7 % (36.0-47.0) Mean Corpuscular Volume 88 fL (79-100) Mean Corpuscular Hemoglobin 30 pg (25-35) Mean Corpuscular Hemoglobin Concent 34 g/dL (31-37) Red Cell Distribution Width 14.1 % (11.5-14.5) Platelet Count 430 x10^3/uL (140-400) Neutrophils (%) (Auto) 68 % (31-73) Lymphocytes (%) (Auto) 15 % (24-48) Monocytes (%) (Auto) 10 % (0-9) Eosinophils (%) (Auto) 6 % (0-3) Basophils (%) (Auto) 1 % (0-3) Neutrophils # (Auto) 3.3 x10^3/uL (1.8-7.7) Lymphocytes # (Auto) 0.7 x10^3/uL (1.0-4.8) Monocytes # (Auto) 0.5 x10^3/uL (0.0-1.1) Eosinophils # (Auto) 0.3 x10^3/uL (0.0-0.7) Basophils # (Auto) 0.1 x10^3/uL (0.0-0.2) Sodium Level 139 mmol/L (136-145) Potassium Level 4.6 mmol/L (3.5-5.1) Chloride Level 100 mmol/L (98-107) Carbon Dioxide Level 33 mmol/L (21-32) Anion Gap 6 (6-14) Blood Urea Nitrogen 10 mg/dL (7-20) Creatinine 0.7 mg/dL (0.6-1.0) Estimated GFR (Cockcroft-Gault) 84.8 BUN/Creatinine Ratio 14 (6-20) Glucose Level 93 mg/dL (70-99) Lactic Acid Level 0.4 mmol/L (0.4-2.0) Calcium Level 9.0 mg/dL (8.5-10.1) Total Bilirubin 0.4 mg/dL (0.2-1.0) Aspartate Amino Transf (AST/SGOT) 13 U/L (15-37) Alanine Aminotransferase (ALT/SGPT) 12 U/L (14-59) Alkaline Phosphatase 97 U/L (46-116) Troponin I Quantitative < 0.017 ng/mL (0.000-0.055) CT-Sfj-Q-Type Natriuretic Peptide 336 pg/mL (0-124) Total Protein 6.8 g/dL (6.4-8.2) Albumin 3.4 g/dL (3.4-5.0) Albumin/Globulin Ratio 1.0 (1.0-1.7) O2 Saturation 97 % (92-99) Arterial Blood pH 7.36 (7.35-7.45) Arterial Blood pCO2 at Patient Temp 45 mmHg (35-46) Arterial Blood pO2 at Patient Temp 110 mmHg (65-108) Arterial Blood HCO3 25 mmol/L (21-28) Arterial Blood Base Excess 0 mmol/L (-3-3) Oxyhemoglobin 96.8 % Methemoglobin 0.4 % (0.0-1.9) Carbon Monoxide, Quantitative 0.2 % (0.0-1.9) FiO2 28 Influenza Type A Antigen Negative (NEGATIVE) Influenza Type B Antigen Negative (NEGATIVE) Urine Collection Type Unknown Urine Color Yellow Urine Clarity Clear Urine pH 7.0 (<5.0-8.0) Urine Specific [place]ike 1.010 (1.000-1.030) Urine Protein Negative mg/dL (NEG-TRACE) Urine Glucose (UA) Negative mg/dL (NEG) Urine Ketones (Stick) Negative mg/dL (NEG) Urine Blood Negative (NEG) Urine Nitrite Negative (NEG) Urine Bilirubin Negative (NEG) Urine Urobilinogen Dipstick 1.0 mg/dL (0.2 mg/dL) Urine Leukocyte Esterase Small (NEG) Urine RBC 0 /HPF (0-2) Urine WBC 5-10 /HPF (0-4) Urine Squamous Epithelial Cells Occ /LPF Urine Bacteria 0 /HPF (0-FEW) Laboratory Tests Test 06/24/19 13:00 06/24/19 13:06 06/24/19 13:35 06/24/19 15:45 White Blood Count 4.9 x10^3/uL (4.0-11.0) Red Blood Count 3.71 x10^6/uL (3.50-5.40) Hemoglobin 10.9 g/dL (12.0-15.5) Hematocrit 32.7 % (36.0-47.0) Mean Corpuscular Volume 88 fL (79-100) Mean Corpuscular Hemoglobin 30 pg (25-35) Mean Corpuscular Hemoglobin Concent 34 g/dL (31-37) Red Cell Distribution Width 14.1 % (11.5-14.5) Platelet Count 430 x10^3/uL (140-400) Neutrophils (%) (Auto) 68 % (31-73) Lymphocytes (%) (Auto) 15 % (24-48) Monocytes (%) (Auto) 10 % (0-9) Eosinophils (%) (Auto) 6 % (0-3) Basophils (%) (Auto) 1 % (0-3) Neutrophils # (Auto) 3.3 x10^3/uL (1.8-7.7) Lymphocytes # (Auto) 0.7 x10^3/uL (1.0-4.8) Monocytes # (Auto) 0.5 x10^3/uL (0.0-1.1) Eosinophils # (Auto) 0.3 x10^3/uL (0.0-0.7) Basophils # (Auto) 0.1 x10^3/uL (0.0-0.2) Sodium Level 139 mmol/L (136-145) Potassium Level 4.6 mmol/L (3.5-5.1) Chloride Level 100 mmol/L (98-107) Carbon Dioxide Level 33 mmol/L (21-32) Anion Gap 6 (6-14) Blood Urea Nitrogen 10 mg/dL (7-20) Creatinine 0.7 mg/dL (0.6-1.0) Estimated GFR (Cockcroft-Gault) 84.8 BUN/Creatinine Ratio 14 (6-20) Glucose Level 93 mg/dL (70-99) Lactic Acid Level 0.4 mmol/L (0.4-2.0) Calcium Level 9.0 mg/dL (8.5-10.1) Total Bilirubin 0.4 mg/dL (0.2-1.0) Aspartate Amino Transf (AST/SGOT) 13 U/L (15-37) Alanine Aminotransferase (ALT/SGPT) 12 U/L (14-59) Alkaline Phosphatase 97 U/L (46-116) Troponin I Quantitative < 0.017 ng/mL (0.000-0.055) [place]-Jes-N-Type Natriuretic Peptide 336 pg/mL (0-124) Total Protein 6.8 g/dL (6.4-8.2) Albumin 3.4 g/dL (3.4-5.0) Albumin/Globulin Ratio 1.0 (1.0-1.7) O2 Saturation 97 % (92-99) Arterial Blood pH 7.36 (7.35-7.45) Arterial Blood pCO2 at Patient Temp 45 mmHg (35-46) Arterial Blood pO2 at Patient Temp 110 mmHg (65-108) Arterial Blood HCO3 25 mmol/L (21-28) Arterial Blood Base Excess 0 mmol/L (-3-3) Oxyhemoglobin 96.8 % Methemoglobin 0.4 % (0.0-1.9) Carbon Monoxide, Quantitative 0.2 % (0.0-1.9) FiO2 28 Influenza Type A Antigen Negative (NEGATIVE) Influenza Type B Antigen Negative (NEGATIVE) Urine Collection Type Unknown Urine Color Yellow Urine Clarity Clear Urine pH 7.0 (<5.0-8.0) Urine Specific Dike 1.010 (1.000-1.030) Urine Protein Negative mg/dL (NEG-TRACE) Urine Glucose (UA) Negative mg/dL (NEG) Urine Ketones (Stick) Negative mg/dL (NEG) Urine Blood Negative (NEG) Urine Nitrite Negative (NEG) Urine Bilirubin Negative (NEG) Urine Urobilinogen Dipstick 1.0 mg/dL (0.2 mg/dL) Urine Leukocyte Esterase Small (NEG) Urine RBC 0 /HPF (0-2) Urine WBC 5-10 /HPF (0-4) Urine Squamous Epithelial Cells Occ /LPF Urine Bacteria 0 /HPF (0-FEW) Images Images APPROVED REPORT EXAM: Two-dimensional and M-mode echocardiogram with Doppler and color Doppler. Other Information Quality : Fair HR: 104bpm INDICATION Pulmonary Hypertention 2D DIMENSIONS Left Atrium(2D) 2.7 (1.6-4.0cm) IVSd 0.9 (0.7-1.1cm) Aortic Root(2D) 2.9 (2.0-3.7cm) LVDd 3.0 (3.9-5.9cm) LVOT Diameter 2.0 (1.8-2.4cm) PWd 0.9 (0.7-1.1cm) LVDs 2.1 (2.5-4.0cm) FS (%) 29.6 % SV 19.8 ml LVEF(%) 58.3 (>50%) Aortic Valve AoV Peak Mir. 140.2cm/s AoV VTI 25.8cm AO Peak GR. 7.9mmHg LVOT VTI 23.31cm AO Mean GR. 5mmHg Mitral Valve MV E Velocity 70.6cm/s MV DECEL TIME 113ms MV A Velocity 95.1cm/s E/A Ratio 0.7 TDI Lateral E' P. V 10.46cm/s Medial E' P. V 7.72cm/s E/Lateral E' 6.7 E/Medial E' 9.1 Tricuspid Valve TR P. Velocity 328cm/s RAP ESTIMATE 3mmHg TR Peak Gr. 51mmHg RVSP 54mmHg Pulmonary Vein S1 Velocity 68.3cm/s S2 Velocity 27.94cm/s D2 Velocity 27.9cm/s PVa duration 126msec LEFT VENTRICLE The left ventricle is normal size. There is normal left ventricular wall thickness. The left ventricular systolic function is normal and the ejection fraction is within normal range. The Ejection Fraction is 55-60%. There is normal LV segmental wall motion. Transmitral Doppler flow pattern is Grade I- abnormal relaxation pattern. RIGHT VENTRICLE The right ventricle is normal size. There is normal right ventricular wall t hickness. The right ventricular systolic function is normal. ATRIA The left atrium size is normal. The right atrium size is normal. The interatrial septum is intact with no evidence for an atrial septal defect or patent foramen ovale as noted on 2-D or Doppler imaging. AORTIC VALVE The aortic valve is thickened but opens well. Doppler and Color Flow revealed no significant aortic regurgitation. There is no significant aortic valvular stenosis. MITRAL VALVE The mitral valve is normal in structure and function. There is no evidence of mitral valve prolapse. There is no mitral valve stenosis. Doppler and Color-flow revealed trace mitral regurgitation. TRICUSPID VALVE The tricuspid valve is normal in structure and function. Doppler and Color Flow revealed trace tricuspid regurgitation with an estimated PAP of 54 mmHg. There is no tricuspid valve stenosis. PULMONIC VALVE The pulmonic valve is not well visualized. Doppler and Color Flow revealed no pulmonic valvular regurgitation. There is no pulmonic valvular stenosis. GREAT VESSELS The aortic root is normal in size. The IVC is normal in size and collapses >50% with inspiration. PERICARDIAL EFFUSION There is no evidence of significant pericardial effusion. Critical Notification Critical Value: No <Conclusion> The left ventricular systolic function is normal and the ejection fraction is within normal range. The Ejection Fraction is 55-60%. There is normal LV segmental wall motion. Doppler and Color Flow revealed trace tricuspid regurgitation with an estimated PAP of 54 mmHg. Signed by : Jalen Shine, Electronically Approved : 03/30/2019 12:14:03 DICTATED and SIGNED BY: JALEN SHINE MD DATE: 03/30/19 1202 SEX: F EXAM STATUS: REG ER ORD. PHYSICIAN: HALEIGH WATTS APRN REASON: abdnormal chest xray PROCEDURE: CT CHEST WO CONTRAST Examination: CT chest without contrast HISTORY: History of abnormal chest x-ray COMPARISON: 07/13/2018 TECHNIQUE: Axial CT images of chest were performed without contrast. Coronal and sagittal reformats are performed Exposure: One or more of the following individualized dose reduction techniques were utilized for this examination: 1. Automated exposure control 2. Adjustment of the mA and/or kV according to patient size 3. Use of iterative reconstruction technique FINDINGS: The ascending aorta measures 4.2 cm in transverse dimension. Mild cardiomegaly. Examination limited thoracic scoliosis and lack of IV contrast. Consolidation of the right lower lobe of the lung is similar to prior exam likely chronic consolidation. Mild airspace opacity identified in the left lower lobe of the lung likely atelectasis or infiltrates Multiple cystic structures identified in the liver probably hepatic cysts. Bony ankylosis the thoracic spine is identified. IMPRESSION: 1. Consolidation of the right lower lobe of the lung likely chronic consolidation is unchanged. 2. Mild airspace opacity identified left lingula likely atelectasis or infiltrate. Electronically signed by: Olvin Fink MD (06/24/2019 3:56 PM) [id number] VTE Prophylaxis Ordered VTE Prophylaxis Devices: No VTE Pharmacological Prophylaxi: Yes Assessment/Plan Assessment/Plan IMPRESSION: PNEUMONIA/ Consolidation of the right lower lobe of the lung likely chronic consolidation is unchanged. Mild airspace opacity identified left lingula likely atelectasis or infiltrate. ACUTE COPD EXAC Acute hypoxic resp failure Small focus left basilar opacity of indeterminate significance. needs follow-up two-view chest x-ray exam for more definitive assessment. severe scoliosis HYPERTENSION ascending aorta measures 4.2 cm in transverse dimension BY CT Transmitral Doppler flow pattern is Grade I-abnormal relaxation pattern. Trace aortic regurgitation. Trace mitral regurgitation. Mild tricuspid regurgitation with an estimated PAP of 44 mmHg. 06/21 ECHO C/W MODERATE PULM HTN PLAN ADMIT EMPERIC IV ANTIBIOTICS, DOXYCYCLINE 100MG BID CONSULT PULM MED TELE BED duonebs qid home meds FULL CODE DVT PROPHYLAXIS PT/OT JUNE CORREA MD Jun 24, 2019 17:19
[2019-06-24 17:20] VITALS: BP 134/83
[2019-06-24] MEDS ORDERED: METOCLOPRAMIDE 5 MG TABLET. PO PRN (17:30)
[2019-06-24] MEDS ORDERED: HYDROcodone/APAP 5/325MG 1 TAB TABLET PO PRN (17:30)
[2019-06-24] MEDS ORDERED: NITROGLYCERIN SUBLINGUAL 0.4 MG BOTTLE OF 25. SL PRN (17:30)
[2019-06-24] MEDS ORDERED: ONDANSETRON ODT 4 MG TAB.RAPDIS. PO PRN (17:45)
[2019-06-24] MEDS: HYDROcodone/APAP 5/325MG 1 TAB TABLET PO PRN (18:49)
[2019-06-24] MEDS: traMADol 50 MG TABLET PO PRN (18:54)
[2019-06-24 19:48] VITALS: BP 199/79
[2019-06-24] MEDS: ALBUTEROL SULFATE 2.5 MG/3 ML NEBU. NEB PRN (20:19)
[2019-06-24] MEDS: BUDESONIDE 0.5 MG/2 ML NEBU. NEB SCH (20:20)
[2019-06-24] MEDS: MONTELUKAST SODIUM 10 MG TABLET. PO SCH (21:50)
[2019-06-24] MEDS: BENZONATATE 100 MG CAPSULE. PO SCH (21:50)
[2019-06-24] MEDS: SIMVASTATIN 10 MG TABLET PO SCH (21:50)
[2019-06-24] MEDS: OXYBUTYNIN CHLORIDE 5 MG TABLET PO SCH (21:50)
[2019-06-24] MEDS: DOXYCYCLINE HYCLATE 100 MG in IV DEXTROSE 5% 100ML 100 ML IV SCH (21:50)
[2019-06-24 23:28] VITALS: BP 112/66
[2019-06-25 03:14] VITALS: BP 110/59
--- NOTE | 2019-06-25 05:11 | EKG ---
[facility] [address] [place] [address] Test Date: 2019-06-24 Test Time: 13:27:06 Pat Name: TREASURE CALVERT Department: Room: Gender: F [employer] Operator: : [id number] Requested By: HALEIGH WATTS Order Number: [id number] Reading MD: Measurements Intervals [place] Rate: 76 P: 47 HI: 140 QRS: -14 QRSD: 118 T: 34 QT: 404 QTc: 459 Interpretive Statements SINUS RHYTHM LEFT ATRIAL ABNORMALITY LEFTWARD AXIS R-S TRANSITION ZONE IN V LEADS DISPLACED TO THE RIGHT INCOMPLETE RIGHT BUNDLE BRANCH BLOCK ABNORMAL ECG RI6.01 No previous ECG available for comparison
[2019-06-25] MEDS: IPRATRPIUM/ALBUTEROL 0.5/2.5MG 3 ML NEBU. NEB SCH ×3 (06:59→15:13)
[2019-06-25] MEDS: BUDESONIDE 0.5 MG/2 ML NEBU. NEB SCH ×2 (06:59→21:29)
[2019-06-25] MEDS: guaiFENesin DM 200MG/20MG 10 ML SYRUP PO PRN ×2 (07:21→21:40)
[2019-06-25 07:48] VITALS: BP 111/64
[2019-06-25] MEDS: DOXYCYCLINE HYCLATE 100 MG in IV DEXTROSE 5% 100ML 100 ML IV SCH ×2 (09:02→21:40)
[2019-06-25] MEDS: LOSARTAN POTASSIUM 50 MG TABLET. PO SCH (09:02)
[2019-06-25] MEDS: GLIMEPIRIDE 2 MG TABLET. PO SCH (09:02)
[2019-06-25] MEDS: PANTOPRAZOLE 40 MG TABLET.DR. PO SCH (09:03)
[2019-06-25] MEDS: BENZONATATE 100 MG CAPSULE. PO SCH ×3 (09:03→21:41)
[2019-06-25] MEDS: OXYBUTYNIN CHLORIDE 5 MG TABLET PO SCH ×2 (09:03→21:41)
[2019-06-25 11:50] VITALS: BP 111/57
--- NOTE | 2019-06-25 12:11 | PDOC ---
PROGRESS NOTES History of Present Illness History of Present Illness VTE Prophylaxis Ordered VTE Prophylaxis Devices: No VTE Pharmacological Prophylaxi: Yes Assessment/Plan Assessment/Plan IMPRESSION: PNEUMONIA/ Consolidation of the right lower lobe of the lung likely chronic consolidation is unchanged. Mild airspace opacity identified left lingula likely atelectasis or infiltrate. ACUTE COPD EXAC Acute hypoxic resp failure Small focus left basilar opacity of indeterminate significance. needs follow-up two-view chest x-ray exam for more definitive assessment. severe scoliosis HYPERTENSION ascending aorta measures 4.2 cm in transverse dimension BY CT Transmitral Doppler flow pattern is Grade I-abnormal relaxation pattern. Trace aortic regurgitation. Trace mitral regurgitation. Mild tricuspid regurgitation with an estimated PAP of 44 mmHg. 06/21 ECHO C/W MODERATE PULM HTN PLAN ADMIT EMPERIC IV ANTIBIOTICS, DOXYCYCLINE 100MG BID CONSULT PULM MED TELE BED duonebs qid home meds FULL CODE DVT PROPHYLAXIS PT/OT PREDNISONE 40MG PO DAILY 06/24 SOA SLOW TO IMPROVE Vitals Vitals Vital Signs Date Time Temp Pulse Resp B/P (MAP) Pulse Ox O2 Delivery O2 Flow Rate FiO2 06/25/19 11:50 97.0 75 20 111/57 (75) 99 Nasal Cannula 3.0 97.0 Physical Exam General: Alert, Oriented X3, Cooperative, No acute distress Lungs: Clear Abdomen: Normal bowel sounds, Soft, No tenderness Extremities: No cyanosis Skin: No significant lesion Labs LABS Laboratory Tests Test 06/24/19 13:00 06/24/19 13:06 06/24/19 13:35 06/24/19 15:45 White Blood Count 4.9 x10^3/uL (4.0-11.0) Red Blood Count 3.71 x10^6/uL (3.50-5.40) Hemoglobin 10.9 g/dL (12.0-15.5) Hematocrit 32.7 % (36.0-47.0) Mean Corpuscular Volume 88 fL (79-100) Mean Corpuscular Hemoglobin 30 pg (25-35) Mean Corpuscular Hemoglobin Concent 34 g/dL (31-37) Red Cell Distribution Width 14.1 % (11.5-14.5) Platelet Count 430 x10^3/uL (140-400) Neutrophils (%) (Auto) 68 % (31-73) Lymphocytes (%) (Auto) 15 % (24-48) Monocytes (%) (Auto) 10 % (0-9) Eosinophils (%) (Auto) 6 % (0-3) Basophils (%) (Auto) 1 % (0-3) Neutrophils # (Auto) 3.3 x10^3/uL (1.8-7.7) Lymphocytes # (Auto) 0.7 x10^3/uL (1.0-4.8) Monocytes # (Auto) 0.5 x10^3/uL (0.0-1.1) Eosinophils # (Auto) 0.3 x10^3/uL (0.0-0.7) Basophils # (Auto) 0.1 x10^3/uL (0.0-0.2) Sodium Level 139 mmol/L (136-145) Potassium Level 4.6 mmol/L (3.5-5.1) Chloride Level 100 mmol/L (98-107) Carbon Dioxide Level 33 mmol/L (21-32) Anion Gap 6 (6-14) Blood Urea Nitrogen 10 mg/dL (7-20) Creatinine 0.7 mg/dL (0.6-1.0) Estimated GFR (Cockcroft-Gault) 84.8 BUN/Creatinine Ratio 14 (6-20) Glucose Level 93 mg/dL (70-99) Lactic Acid Level 0.4 mmol/L (0.4-2.0) Calcium Level 9.0 mg/dL (8.5-10.1) Total Bilirubin 0.4 mg/dL (0.2-1.0) Aspartate Amino Transf (AST/SGOT) 13 U/L (15-37) Alanine Aminotransferase (ALT/SGPT) 12 U/L (14-59) Alkaline Phosphatase 97 U/L (46-116) Troponin I Quantitative < 0.017 ng/mL (0.000-0.055) ZV-Kro-S-Type Natriuretic Peptide 336 pg/mL (0-124) Total Protein 6.8 g/dL (6.4-8.2) Albumin 3.4 g/dL (3.4-5.0) Albumin/Globulin Ratio 1.0 (1.0-1.7) O2 Saturation 97 % (92-99) Arterial Blood pH 7.36 (7.35-7.45) Arterial Blood pCO2 at Patient Temp 45 mmHg (35-46) Arterial Blood pO2 at Patient Temp 110 mmHg (65-108) Arterial Blood HCO3 25 mmol/L (21-28) Arterial Blood Base Excess 0 mmol/L (-3-3) Oxyhemoglobin 96.8 % Methemoglobin 0.4 % (0.0-1.9) Carbon Monoxide, Quantitative 0.2 % (0.0-1.9) FiO2 28 Influenza Type A Antigen Negative (NEGATIVE) Influenza Type B Antigen Negative (NEGATIVE) Urine Collection Type Unknown Urine Color Yellow Urine Clarity Clear Urine pH 7.0 (<5.0-8.0) Urine Specific [place] 1.010 (1.000-1.030) Urine Protein Negative mg/dL (NEG-TRACE) Urine Glucose (UA) Negative mg/dL (NEG) Urine Ketones (Stick) Negative mg/dL (NEG) Urine Blood Negative (NEG) Urine Nitrite Negative (NEG) Urine Bilirubin Negative (NEG) Urine Urobilinogen Dipstick 1.0 mg/dL (0.2 mg/dL) Urine Leukocyte Esterase Small (NEG) Urine RBC 0 /HPF (0-2) Urine WBC 5-10 /HPF (0-4) Urine Squamous Epithelial Cells Occ /LPF Urine Bacteria 0 /HPF (0-FEW) Comment Review of Relevant I have reviewed the following items jose angel (where applicable) has been applied. Labs Laboratory Tests Test 06/24/19 13:00 06/24/19 13:06 06/24/19 13:35 06/24/19 15:45 White Blood Count 4.9 x10^3/uL (4.0-11.0) Red Blood Count 3.71 x10^6/uL (3.50-5.40) Hemoglobin 10.9 g/dL (12.0-15.5) Hematocrit 32.7 % (36.0-47.0) Mean Corpuscular Volume 88 fL (79-100) Mean Corpuscular Hemoglobin 30 pg (25-35) Mean Corpuscular Hemoglobin Concent 34 g/dL (31-37) Red Cell Distribution Width 14.1 % (11.5-14.5) Platelet Count 430 x10^3/uL (140-400) Neutrophils (%) (Auto) 68 % (31-73) Lymphocytes (%) (Auto) 15 % (24-48) Monocytes (%) (Auto) 10 % (0-9) Eosinophils (%) (Auto) 6 % (0-3) Basophils (%) (Auto) 1 % (0-3) Neutrophils # (Auto) 3.3 x10^3/uL (1.8-7.7) Lymphocytes # (Auto) 0.7 x10^3/uL (1.0-4.8) Monocytes # (Auto) 0.5 x10^3/uL (0.0-1.1) Eosinophils # (Auto) 0.3 x10^3/uL (0.0-0.7) Basophils # (Auto) 0.1 x10^3/uL (0.0-0.2) Sodium Level 139 mmol/L (136-145) Potassium Level 4.6 mmol/L (3.5-5.1) Chloride Level 100 mmol/L (98-107) Carbon Dioxide Level 33 mmol/L (21-32) Anion Gap 6 (6-14) Blood Urea Nitrogen 10 mg/dL (7-20) Creatinine 0.7 mg/dL (0.6-1.0) Estimated GFR (Cockcroft-Gault) 84.8 BUN/Creatinine Ratio 14 (6-20) Glucose Level 93 mg/dL (70-99) Lactic Acid Level 0.4 mmol/L (0.4-2.0) Calcium Level 9.0 mg/dL (8.5-10.1) Total Bilirubin 0.4 mg/dL (0.2-1.0) Aspartate Amino Transf (AST/SGOT) 13 U/L (15-37) Alanine Aminotransferase (ALT/SGPT) 12 U/L (14-59) Alkaline Phosphatase 97 U/L (46-116) Troponin I Quantitative < 0.017 ng/mL (0.000-0.055) LR-Hba-O-Type Natriuretic Peptide 336 pg/mL (0-124) Total Protein 6.8 g/dL (6.4-8.2) Albumin 3.4 g/dL (3.4-5.0) Albumin/Globulin Ratio 1.0 (1.0-1.7) O2 Saturation 97 % (92-99) Arterial Blood pH 7.36 (7.35-7.45) Arterial Blood pCO2 at Patient Temp 45 mmHg (35-46) Arterial Blood pO2 at Patient Temp 110 mmHg (65-108) Arterial Blood HCO3 25 mmol/L (21-28) Arterial Blood Base Excess 0 mmol/L (-3-3) Oxyhemoglobin 96.8 % Methemoglobin 0.4 % (0.0-1.9) Carbon Monoxide, Quantitative 0.2 % (0.0-1.9) FiO2 28 Influenza Type A Antigen Negative (NEGATIVE) Influenza Type B Antigen Negative (NEGATIVE) Urine Collection Type Unknown Urine Color Yellow Urine Clarity Clear Urine pH 7.0 (<5.0-8.0) Urine Specific [place] 1.010 (1.000-1.030) Urine Protein Negative mg/dL (NEG-TRACE) Urine Glucose (UA) Negative mg/dL (NEG) Urine Ketones (Stick) Negative mg/dL (NEG) Urine Blood Negative (NEG) Urine Nitrite Negative (NEG) Urine Bilirubin Negative (NEG) Urine Urobilinogen Dipstick 1.0 mg/dL (0.2 mg/dL) Urine Leukocyte Esterase Small (NEG) Urine RBC 0 /HPF (0-2) Urine WBC 5-10 /HPF (0-4) Urine Squamous Epithelial Cells Occ /LPF Urine Bacteria 0 /HPF (0-FEW) Laboratory Tests Test 06/24/19 13:00 06/24/19 13:06 06/24/19 13:35 06/24/19 15:45 White Blood Count 4.9 x10^3/uL (4.0-11.0) Red Blood Count 3.71 x10^6/uL (3.50-5.40) Hemoglobin 10.9 g/dL (12.0-15.5) Hematocrit 32.7 % (36.0-47.0) Mean Corpuscular Volume 88 fL (79-100) Mean Corpuscular Hemoglobin 30 pg (25-35) Mean Corpuscular Hemoglobin Concent 34 g/dL (31-37) Red Cell Distribution Width 14.1 % (11.5-14.5) Platelet Count 430 x10^3/uL (140-400) Neutrophils (%) (Auto) 68 % (31-73) Lymphocytes (%) (Auto) 15 % (24-48) Monocytes (%) (Auto) 10 % (0-9) Eosinophils (%) (Auto) 6 % (0-3) Basophils (%) (Auto) 1 % (0-3) Neutrophils # (Auto) 3.3 x10^3/uL (1.8-7.7) Lymphocytes # (Auto) 0.7 x10^3/uL (1.0-4.8) Monocytes # (Auto) 0.5 x10^3/uL (0.0-1.1) Eosinophils # (Auto) 0.3 x10^3/uL (0.0-0.7) Basophils # (Auto) 0.1 x10^3/uL (0.0-0.2) Sodium Level 139 mmol/L (136-145) Potassium Level 4.6 mmol/L (3.5-5.1) Chloride Level 100 mmol/L (98-107) Carbon Dioxide Level 33 mmol/L (21-32) Anion Gap 6 (6-14) Blood Urea Nitrogen 10 mg/dL (7-20) Creatinine 0.7 mg/dL (0.6-1.0) Estimated GFR (Cockcroft-Gault) 84.8 BUN/Creatinine Ratio 14 (6-20) Glucose Level 93 mg/dL (70-99) Lactic Acid Level 0.4 mmol/L (0.4-2.0) Calcium Level 9.0 mg/dL (8.5-10.1) Total Bilirubin 0.4 mg/dL (0.2-1.0) Aspartate Amino Transf (AST/SGOT) 13 U/L (15-37) Alanine Aminotransferase (ALT/SGPT) 12 U/L (14-59) Alkaline Phosphatase 97 U/L (46-116) Troponin I Quantitative < 0.017 ng/mL (0.000-0.055) GC-Nms-R-Type Natriuretic Peptide 336 pg/mL (0-124) Total Protein 6.8 g/dL (6.4-8.2) Albumin 3.4 g/dL (3.4-5.0) Albumin/Globulin Ratio 1.0 (1.0-1.7) O2 Saturation 97 % (92-99) Arterial Blood pH 7.36 (7.35-7.45) Arterial Blood pCO2 at Patient Temp 45 mmHg (35-46) Arterial Blood pO2 at Patient Temp 110 mmHg (65-108) Arterial Blood HCO3 25 mmol/L (21-28) Arterial Blood Base Excess 0 mmol/L (-3-3) Oxyhemoglobin 96.8 % Methemoglobin 0.4 % (0.0-1.9) Carbon Monoxide, Quantitative 0.2 % (0.0-1.9) FiO2 28 Influenza Type A Antigen Negative (NEGATIVE) Influenza Type B Antigen Negative (NEGATIVE) Urine Collection Type Unknown Urine Color Yellow Urine Clarity Clear Urine pH 7.0 (<5.0-8.0) Urine Specific [place] 1.010 (1.000-1.030) Urine Protein Negative mg/dL (NEG-TRACE) Urine Glucose (UA) Negative mg/dL (NEG) Urine Ketones (Stick) Negative mg/dL (NEG) Urine Blood Negative (NEG) Urine Nitrite Negative (NEG) Urine Bilirubin Negative (NEG) Urine Urobilinogen Dipstick 1.0 mg/dL (0.2 mg/dL) Urine Leukocyte Esterase Small (NEG) Urine RBC 0 /HPF (0-2) Urine WBC 5-10 /HPF (0-4) Urine Squamous Epithelial Cells Occ /LPF Urine Bacteria 0 /HPF (0-FEW) Medications Current Medications Albuterol Sulfate (Ventolin Neb Soln) 10 mg 1X ONCE CONT NEB Last administered on 06/24/19at 13:36; Start 06/24/19 at 13:15; Stop 06/24/19 at 13:16; Status DC Methylprednisolone Sodium Succinate (SOLU-Medrol 125MG VIAL) 125 mg 1X ONCE IV Last administered on 06/24/19at 13:38; Start 06/24/19 at 13:15; Stop 06/24/19 at 13:16; Status DC Doxycycline Hyclate 100 mg/ Dextrose 100 ml @ 50 mls/hr 1X ONCE IV Last administered on 06/24/19at 13:45; Start 06/24/19 at 13:45; Stop 06/24/19 at 15:44; Status DC Ondansetron HCl (Zofran) 4 mg PRN Q8HRS PRN IV NAUSEA/VOMITING Last administered on 06/24/19at 18:49; Start 06/24/19 at 15:15; Stop 06/25/19 at 15:14 Fentanyl Citrate (Fentanyl 2ml Vial) 50 mcg PRN Q1HR PRN IV PAIN Last administered on 06/24/19at 21:49; Start 06/24/19 at 15:15; Stop 06/25/19 at 15:14 Acetaminophen (Tylenol) 650 mg PRN Q4HRS PRN PO FEVER; Start 06/24/19 at 15:15; Stop 06/25/19 at 15:14 Albuterol/ Ipratropium (Duoneb) 3 ml RTQID NEB Last administered on 06/25/19at 10:36; Start 06/24/19 at 16:00; Stop 06/25/19 at 15:59 Doxycycline Hyclate 100 mg/ Dextrose 100 ml @ 50 mls/hr BID IV Last administered on 06/25/19at 09:02; Start 06/24/19 at 21:00 Albuterol Sulfate (Ventolin Neb Soln) 2.5 mg Q4HRS W/A PRN NEB wheezing Last administered on 06/24/19at 20:19; Start 06/24/19 at 17:30 Benzonatate (Tessalon Perle) 100 mg TID PO Last administered on 06/25/19at 09:03; Start 06/24/19 at 21:00 Diltiazem HCl (Cardizem 24hr Cd) 120 mg DAILY PO Last administered on 06/25/19at 09:02; Start 06/25/19 at 09:00 Guaifenesin (Mucinex) 600 mg BID PO Last administered on 06/25/19at 09:02; Start 06/24/19 at 21:00 Acetaminophen/ Hydrocodone Bitart (Lortab 5/325) 0.5 tab PRN Q6HRS PRN PO MODERATE PAIN; Start 06/24/19 at 17:30 Albuterol/ Ipratropium (Duoneb) 3 ml RTBID NEB ; Start 06/25/19 at 20:00 Losartan Potassium (Cozaar) 50 mg DAILY PO Last administered on 06/25/19at 09:02; Start 06/25/19 at 09:00 Metoclopramide HCl (Reglan) 5 mg PRN BFRMEALHC PRN PO NAUSEA/VOMITING; Start 06/24/19 at 17:30 Montelukast Sodium (Singulair) 10 mg HS PO Last administered on 06/24/19at 21:50; Start 06/24/19 at 21:00 Nitroglycerin (Nitrostat) 0.4 mg PRN Q5MIN PRN SL CHEST PAIN; Start 06/24/19 at 17:30 Simvastatin (Zocor) 10 mg HS PO Last administered on 06/24/19at 21:50; Start 06/24/19 at 21:00 Tramadol HCl (Ultram) 50 mg PRN Q6HRS PRN PO MILD PAIN 1-3 Last administered on 06/24/19at 18:54; Start 06/24/19 at 17:30 Budesonide (Pulmicort) 0.5 mg RTBID NEB Last administered on 06/25/19at 06:59; Start 06/24/19 at 20:00 Ergocalciferol (Vitamin D2) 50,000 unit WEEKLY PO ; Start 07/01/19 at 09:00 Glimepiride (Amaryl) 1 mg DAILYWBKFT PO Last administered on 06/25/19at 09:02; Start 06/25/19 at 08:00 Ondansetron HCl (Zofran Odt) 4 mg PRN Q8HRS PRN PO NAUSEA/VOMITING, 1ST CHOICE PO; Start 06/24/19 at 17:45 Oxybutynin Chloride (Ditropan) 2.5 mg BID PO Last administered on 06/25/19at 09:03; Start 06/24/19 at 21:00 Pantoprazole Sodium (Protonix) 40 mg DAILYAC PO Last administered on 06/25/19at 09:03; Start 06/25/19 at 07:30 Acetaminophen/ Hydrocodone Bitart (Lortab 5/325) 1 tab PRN Q6HRS PRN PO SEVERE PAIN; Start 06/24/19 at 17:45 Guaifenesin (Robitussin Dm) 10 ml PRN Q4HRS PRN PO COUGH Last administered on 06/25/19at 07:21; Start 06/25/19 at 06:30 Active Scripts Active [facility] 5-325 Tablet (Acetaminophen/Hydrocodone Bitart) 1 Each Tablet 0.5-1 Tab PO PRN Q6HRS PRN Doxycycline Monohydrate 100 Mg Capsule 1 Cap PO BID 5 Days Prednisone 20 Mg Tablet 1 Tab PO DAILY 5 Days Indomethacin 50 Mg Capsule 1 Cap PO BID PRN Zofran (Ondansetron Hcl) 4 Mg Tablet 1 Tab PO Q8HRS PRN Tramadol Hcl 50 Mg Tablet 50 Mg PO PRN Q6HRS PRN 6 Days Metoclopramide Hcl 5 Mg Tablet 5 Mg PO PRN BFRMEALHC PRN Protonix Packet (Pantoprazole Sodium) 40 Mg Granpkt.dr 40 Mg PO DAILY 30 Days Reported NITROGLYCERIN SubLingual (Nitroglycerin) 0.4 Mg Tab.subl 1 Tab SL UD Benzonatate 100 Mg Capsule 1 Cap PO TID Glimepiride 1 Mg Tablet 1 Tab PO DAILY Duoneb 0.5-3(2.5) Mg/3 Ml (Albuterol/Ipratropium) 3 Ml Ampul.neb 3 Ml NEB BID Symbicort 160-4.5 Mcg Inhaler (Budesonide/Formoterol Fumarate) 10.2 Gm Hfa.aer.ad 2 Puff IH BID Mucinex (Guaifenesin) 600 Mg Tablet.er 1 Tab PO BID Vitamin D (Cholecalciferol (Vitamin D3)) 50,000 Unit Capsule 50,000 Unit PO WEEKLY Ditropan Xl (Oxybutynin Chloride) 5 Mg Tab.er.24 5 Mg PO DAILY Losartan Potassium 50 Mg Tablet 50 Mg PO DAILY Simvastatin 10 Mg Tablet 10 Mg PO HS Proair Hfa Inhaler (Albuterol Sulfate) 8.5 Gm Hfa.aer.ad 17 Gm IH Q4HRS W/A PRN Spiriva (Tiotropium [place]) 18 Mcg Cap.w.dev 18 Mcg IH DAILY Singulair Tablet (Montelukast Sodium) 10 Mg Tablet 10 Mg PO HS Diltiazem 24HR Cd (Diltiazem Hcl) 120 Mg Cap.er.24h 120 Mg PO DAILY Vitals/I & O Vital Sign - Last 24 Hours 06/24/19 06/24/19 06/24/19 06/24/19 13:06 13:37 14:00 15:00 Temp 98.5 98.5 Pulse 82 76 88 Resp 20 22 22 B/P (MAP) 136/78 (97) 129/81 (97) 126/87 (100) Pulse Ox 98 93 100 99 O2 Delivery Nasal Cannula Nasal Cannula Nasal Cannula Nasal Cannula O2 Flow Rate 2.0 2.0 3.0 3.0 06/24/19 06/24/19 06/24/19 06/24/19 16:00 17:20 17:53 19:48 Temp 98.2 98.1 98.2 98.1 Pulse 82 87 92 Resp 20 B/P (MAP) 119/72 (88) 134/83 (100) 199/79 (119) Pulse Ox 99 98 O2 Delivery Nasal Cannula Nasal Cannula Nasal Cannula Nasal Cannula O2 Flow Rate 3.0 3.0 3.0 3.0 06/24/19 06/24/19 06/24/19 06/24/19 19:54 20:00 20:19 21:49 Pulse Ox 98 94 O2 Delivery Nasal Cannula Nasal Cannula Nasal Cannula Nasal Cannula O2 Flow Rate 3.0 3.0 2.0 06/24/19 06/24/19 06/25/19 06/25/19 22:19 23:28 03:14 07:00 Temp 97.9 97.6 97.9 97.6 Pulse 91 92 Resp 20 16 B/P (MAP) 112/66 (81) 110/59 (76) Pulse Ox 98 96 93 O2 Delivery Nasal Cannula Nasal Cannula Nasal Cannula Nasal Cannula O2 Flow Rate 3.0 3.0 2.0 06/25/19 06/25/19 06/25/19 06/25/19 07:48 08:00 09:02 09:02 Temp 97.6 97.6 Pulse 79 79 79 Resp 18 B/P (MAP) 111/64 (80) 111/64 111/64 Pulse Ox 100 O2 Delivery Nasal Cannula Nasal Cannula O2 Flow Rate 3.0 3.0 06/25/19 06/25/19 10:37 11:50 Temp 97.0 97.0 Pulse 75 Resp 20 B/P (MAP) 111/57 (75) Pulse Ox 93 99 O2 Delivery Nasal Cannula Nasal Cannula O2 Flow Rate 2.0 3.0 Intake and Output 06/24/19 06/24/19 06/25/19 15:00 23:00 07:00 Intake Total 110 ml Balance 110 ml JUNE CORREA MD Jun 25, 2019 12:11
[2019-06-25] MEDS: traMADol 50 MG TABLET PO PRN (14:02)
--- NOTE | 2019-06-25 14:17 | CONS ---
DATE OF CONSULTATION: I was asked to see this 63-year-old lady for acute on chronic respiratory failure, acute exacerbation of COPD. HISTORY OF PRESENT ILLNESS: She does have history of [id number] smoking. She quit smoking few years ago. She has scoliosis. She has not felt well for the past 4 days. She denies fever or chills. She has had increased shortness of breath and cough, does not know if she had wheezing. She had diarrhea last night. She denies chest pain. PAST MEDICAL HISTORY: Scoliosis, CHF, COPD, diabetes mellitus, hypertension, hip replacement. Status post left upper kidney removal post fall. ALLERGIES: ASPIRIN. MEDICATIONS: Currently, she is on vitamin D, DuoNeb, Cozaar, Cardizem, Amaryl, Protonix, Zocor, Singulair, Mucinex, doxycycline, Pulmicort. SOCIAL HISTORY: History of 30-jxhy-htmi smoking, quit smoking few years ago. FAMILY HISTORY: Hypertension. REVIEW OF SYSTEMS: As mentioned as above, other systems otherwise negative. PHYSICAL EXAMINATION: GENERAL: This is an elderly lady. VITAL SIGNS: Her O2 saturation on 3 liters of oxygen is 93%, respiratory rate 18, heart rate 79, blood pressure 111/64, temperature 97.6. HEENT: Normocephalic, atraumatic. Pupils equal, round, reactive to light. She has poor dentition. Nose is clear. NECK: There is no lymphadenopathy or thyromegaly. CARDIOVASCULAR: Regular rate and rhythm. PMI is nondisplaced. CHEST: On chest inspection, there is scoliosis. LUNGS: There are bibasilar crackles and expiratory wheezing, dullness at the bases. ABDOMEN: Soft. Bowel sounds are good. There is no mass. EXTREMITIES: There is no clubbing or cyanosis. LYMPHATICS: There is no lymphadenopathy. NEUROLOGIC: Alert and oriented. SKIN: Chronic changes. LABORATORY DATA: I reviewed the following lab data: CT of the chest did show scoliosis consolidation of right lower lobe, likely chronic mild airspace opacity identified left lingula, likely atelectasis or infiltrate. WBC 4.9, hemoglobin 10.2, and platelets 430. Influenza A and B negative. Sodium 139, potassium 4.6, chloride 100, CO2 of 33, glucose 93, BUN 10, creatinine 0.7. BNP 336. Troponin less than 0.01. ABG: pH 7.36, pCO2 of 45, pO2 of 110, and 28% FiO2. IMPRESSION: 1. Acute on chronic respiratory failure secondary to acute exacerbation of chronic obstructive pulmonary disease, acute bronchitis. 2. Abnormal CT of the chest. 3. Acute exacerbation of chronic obstructive pulmonary disease. 4. Acute bronchitis. 5. Hypertension. 6. Diabetes mellitus. 7. History of congestive heart failure. PLAN AND RECOMMENDATIONS: 1. Titrate FiO2 to keep O2 saturation 92%. 2. Continue bronchodilator. 3. Continue inhaled corticosteroid. 4. Start prednisone 40 mg daily. 5. Agree with doxycycline. 6. Continue not smoking. 7. Start incentive spirometer to use multiple times an hour. 8. The findings and recommendation were discussed with the patient. She understood and agreed to proceed with the plan. I have answered all of her questions. Thank you very much for allowing me to participate in care of this very nice lady. RODRIGO JONES M.D. : MANOLO/jose JOB#: [id number] / [id number]
[2019-06-25 15:03] VITALS: BP 100/54
[2019-06-25 19:33] VITALS: BP 103/70
[2019-06-25] MEDS: ALBUTEROL SULFATE 2.5 MG/3 ML NEBU. NEB PRN (21:28)
[2019-06-25] MEDS: LACTOBACILLUS RHAMNOSUS GG 1 CAPSULE. PO SCH (21:40)
[2019-06-25] MEDS: MONTELUKAST SODIUM 10 MG TABLET. PO SCH (21:40)
[2019-06-25] MEDS: SIMVASTATIN 10 MG TABLET PO SCH (21:41)
[2019-06-25 23:17] VITALS: BP 124/74
[2019-06-26] MEDS: HYDROcodone/APAP 5/325MG 1 TAB TABLET PO PRN ×2 (03:02→09:31)
[2019-06-26 03:11] VITALS: BP 135/85
[2019-06-26 07:00] VITALS: BP 123/73
[2019-06-26] MEDS: IPRATRPIUM/ALBUTEROL 0.5/2.5MG 3 ML NEBU. NEB SCH ×2 (07:16→21:10)
[2019-06-26] MEDS: ALBUTEROL SULFATE 2.5 MG/3 ML NEBU. NEB PRN ×2 (07:16→12:56)
[2019-06-26] MEDS: BUDESONIDE 0.5 MG/2 ML NEBU. NEB SCH ×2 (07:16→21:10)
--- NOTE | 2019-06-26 08:26 | PDOC ---
PULMONARY PROGRESS NOTES Subjective PT NOT MORE SOA FEELS BETTER Vitals Vital Signs Date Time Temp Pulse Resp B/P (MAP) Pulse Ox O2 Delivery O2 Flow Rate FiO2 06/26/19 07:18 94 Nasal Cannula 3.0 06/26/19 07:00 97.5 92 17 123/73 (90) 97.5 ROS: No Nausea, No Chest Pain, No Abdominal Pain, No Increase Cough General: Alert, Oriented X4, No acute distress HEENT: Other Lungs: Clear Cardiovascular: S1, S2 Abdomen: Soft, Non-tender Neuro Exam: Alert Extremities: No Edema Labs Laboratory Tests Test 06/24/19 13:00 06/24/19 13:06 06/24/19 13:35 06/24/19 15:45 White Blood Count 4.9 x10^3/uL (4.0-11.0) Red Blood Count 3.71 x10^6/uL (3.50-5.40) Hemoglobin 10.9 g/dL (12.0-15.5) Hematocrit 32.7 % (36.0-47.0) Mean Corpuscular Volume 88 fL (79-100) Mean Corpuscular Hemoglobin 30 pg (25-35) Mean Corpuscular Hemoglobin Concent 34 g/dL (31-37) Red Cell Distribution Width 14.1 % (11.5-14.5) Platelet Count 430 x10^3/uL (140-400) Neutrophils (%) (Auto) 68 % (31-73) Lymphocytes (%) (Auto) 15 % (24-48) Monocytes (%) (Auto) 10 % (0-9) Eosinophils (%) (Auto) 6 % (0-3) Basophils (%) (Auto) 1 % (0-3) Neutrophils # (Auto) 3.3 x10^3/uL (1.8-7.7) Lymphocytes # (Auto) 0.7 x10^3/uL (1.0-4.8) Monocytes # (Auto) 0.5 x10^3/uL (0.0-1.1) Eosinophils # (Auto) 0.3 x10^3/uL (0.0-0.7) Basophils # (Auto) 0.1 x10^3/uL (0.0-0.2) Sodium Level 139 mmol/L (136-145) Potassium Level 4.6 mmol/L (3.5-5.1) Chloride Level 100 mmol/L (98-107) Carbon Dioxide Level 33 mmol/L (21-32) Anion Gap 6 (6-14) Blood Urea Nitrogen 10 mg/dL (7-20) Creatinine 0.7 mg/dL (0.6-1.0) Estimated GFR (Cockcroft-Gault) 84.8 BUN/Creatinine Ratio 14 (6-20) Glucose Level 93 mg/dL (70-99) Lactic Acid Level 0.4 mmol/L (0.4-2.0) Calcium Level 9.0 mg/dL (8.5-10.1) Total Bilirubin 0.4 mg/dL (0.2-1.0) Aspartate Amino Transf (AST/SGOT) 13 U/L (15-37) Alanine Aminotransferase (ALT/SGPT) 12 U/L (14-59) Alkaline Phosphatase 97 U/L (46-116) Troponin I Quantitative < 0.017 ng/mL (0.000-0.055) DH-Xcx-H-Type Natriuretic Peptide 336 pg/mL (0-124) Total Protein 6.8 g/dL (6.4-8.2) Albumin 3.4 g/dL (3.4-5.0) Albumin/Globulin Ratio 1.0 (1.0-1.7) O2 Saturation 97 % (92-99) Arterial Blood pH 7.36 (7.35-7.45) Arterial Blood pCO2 at Patient Temp 45 mmHg (35-46) Arterial Blood pO2 at Patient Temp 110 mmHg (65-108) Arterial Blood HCO3 25 mmol/L (21-28) Arterial Blood Base Excess 0 mmol/L (-3-3) Oxyhemoglobin 96.8 % Methemoglobin 0.4 % (0.0-1.9) Carbon Monoxide, Quantitative 0.2 % (0.0-1.9) FiO2 28 Influenza Type A Antigen Negative (NEGATIVE) Influenza Type B Antigen Negative (NEGATIVE) Urine Collection Type Unknown Urine Color Yellow Urine Clarity Clear Urine pH 7.0 (<5.0-8.0) Urine Specific [place] 1.010 (1.000-1.030) Urine Protein Negative mg/dL (NEG-TRACE) Urine Glucose (UA) Negative mg/dL (NEG) Urine Ketones (Stick) Negative mg/dL (NEG) Urine Blood Negative (NEG) Urine Nitrite Negative (NEG) Urine Bilirubin Negative (NEG) Urine Urobilinogen Dipstick 1.0 mg/dL (0.2 mg/dL) Urine Leukocyte Esterase Small (NEG) Urine RBC 0 /HPF (0-2) Urine WBC 5-10 /HPF (0-4) Urine Squamous Epithelial Cells Occ /LPF Urine Bacteria 0 /HPF (0-FEW) Medications Active Scripts Medications Dose Route/Sig Max Daily Dose Days Date Category [place] 5-325 Tablet (Acetaminophen/Hydrocodone Bitart) 1 Each Tablet 0.5-1 Tab PO PRN Q6HRS PRN 04/16/19 Rx Doxycycline Monohydrate 100 Mg Capsule 1 Cap PO BID 5 04/02/19 Rx Prednisone 20 Mg Tablet 1 Tab PO DAILY 5 04/02/19 Rx Indomethacin 50 Mg Capsule 1 Cap PO BID PRN 12/31/18 Rx Zofran (Ondansetron Hcl) 4 Mg Tablet 1 Tab PO Q8HRS PRN 12/11/18 Rx Tramadol Hcl 50 Mg Tablet 50 Mg PO PRN Q6HRS PRN 6 10/15/18 Rx NITROGLYCERIN SubLingual (Nitroglycerin) 0.4 Mg Tab.subl 1 Tab SL UD 10/14/18 Reported Benzonatate 100 Mg Capsule 1 Cap PO TID 10/14/18 Reported Glimepiride 1 Mg Tablet 1 Tab PO DAILY 10/14/18 Reported Duoneb 0.5-3(2.5) Mg/3 Ml (Albuterol/Ipratropium) 3 Ml Ampul.neb 3 Ml NEB BID 10/14/18 Reported Symbicort 160-4.5 Mcg Inhaler (Budesonide/Formoterol Fumarate) 10.2 Gm Hfa.aer.ad 2 Puff IH BID 10/14/18 Reported Metoclopramide Hcl 5 Mg Tablet 5 Mg PO PRN BFRMEALHC PRN 01/24/18 Rx Protonix Packet (Pantoprazole Sodium) 40 Mg Granpkt.dr 40 Mg PO DAILY 30 01/24/18 Rx Mucinex (Guaifenesin) 600 Mg Tablet.er 1 Tab PO BID 08/16/16 Reported Vitamin D (Cholecalciferol (Vitamin D3)) 50,000 Unit Capsule 50,000 Unit PO WEEKLY 08/16/16 Reported Ditropan Xl (Oxybutynin Chloride) 5 Mg Tab.er.24 5 Mg PO DAILY 08/16/16 Reported Losartan Potassium 50 Mg Tablet 50 Mg PO DAILY 08/16/16 Reported Simvastatin 10 Mg Tablet 10 Mg PO HS 08/16/16 Reported Proair Hfa Inhaler (Albuterol Sulfate) 8.5 Gm Hfa.aer.ad 17 Gm IH Q4HRS W/A PRN 07/23/13 Reported Spiriva (Tiotropium [place]) 18 Mcg Cap.w.dev 18 Mcg IH DAILY 07/23/13 Reported Singulair Tablet (Montelukast Sodium) 10 Mg Tablet 10 Mg PO HS 07/23/13 Reported Diltiazem 24HR Cd (Diltiazem Hcl) 120 Mg Cap.er.24h 120 Mg PO DAILY 07/23/13 Reported Impression . IMPRESSION: 1. Acute on chronic respiratory failure secondary to acute exacerbation of chronic obstructive pulmonary disease, acute bronchitis. 2. Abnormal CT of the chest. 3. Acute exacerbation of chronic obstructive pulmonary disease. 4. Acute bronchitis. 5. Hypertension. 6. Diabetes mellitus. 7. History of congestive heart failure. CT CHEST IMPRESSION: 1. Consolidation of the right lower lobe of the lung likely chronic consolidation is unchanged. 2. Mild airspace opacity identified left lingula likely atelectasis or infiltrate. Plan . IMPROVING WILL REEVALUATE IN AM IF CONTINUES TO IMPROVE WILL DC HOME FOR NOW REQUIRES INPATIENT FOR TENUOUS RESP STATUS CONTINUE IV STEROIDS AND IV ANTIVBX WILL NEED CT OF CHEST IN 2 MONTHS RUSSELL ROBERTSON MD Jun 26, 2019 08:26
[2019-06-26] MEDS: OXYBUTYNIN CHLORIDE 5 MG TABLET PO SCH ×2 (09:22→21:06)
[2019-06-26] MEDS: BENZONATATE 100 MG CAPSULE. PO SCH ×3 (09:22→21:06)
[2019-06-26] MEDS: LOSARTAN POTASSIUM 50 MG TABLET. PO SCH (09:22)
[2019-06-26] MEDS: PANTOPRAZOLE 40 MG TABLET.DR. PO SCH (09:23)
[2019-06-26] MEDS: LACTOBACILLUS RHAMNOSUS GG 1 CAPSULE. PO SCH ×2 (09:23→21:06)
[2019-06-26] MEDS: GLIMEPIRIDE 2 MG TABLET. PO SCH (09:23)
[2019-06-26] MEDS: DOXYCYCLINE HYCLATE 100 MG in IV DEXTROSE 5% 100ML 100 ML IV SCH ×2 (09:25→21:07)
--- NOTE | 2019-06-26 10:38 | PDOC ---
PROGRESS NOTES History of Present Illness History of Present Illness VTE Prophylaxis Ordered VTE Prophylaxis Devices: No VTE Pharmacological Prophylaxi: Yes Assessment/Plan Assessment/Plan IMPRESSION: PNEUMONIA/ Consolidation of the right lower lobe of the lung likely chronic consolidation is unchanged. Mild airspace opacity identified left lingula likely atelectasis or infiltrate. ACUTE COPD EXAC Acute hypoxic resp failure Small focus left basilar opacity of indeterminate significance. needs follow-up two-view chest x-ray exam for more definitive assessment. severe scoliosis HYPERTENSION ascending aorta measures 4.2 cm in transverse dimension BY CT Transmitral Doppler flow pattern is Grade I-abnormal relaxation pattern. Trace aortic regurgitation. Trace mitral regurgitation. Mild tricuspid regurgitation with an estimated PAP of 44 mmHg. 06/21 ECHO C/W MODERATE PULM HTN PLAN ADMIT EMPERIC IV ANTIBIOTICS, DOXYCYCLINE 100MG BID CONSULT PULM MED TELE BED duonebs qid home meds FULL CODE DVT PROPHYLAXIS PT/OT PREDNISONE 40MG PO DAILY 06/25 SOA SLOW TO IMPROVE Vitals Vitals Vital Signs Date Time Temp Pulse Resp B/P (MAP) Pulse Ox O2 Delivery O2 Flow Rate FiO2 06/26/19 09:31 18 Nasal Cannula 3.0 06/26/19 09:24 92 123/73 06/26/19 07:18 94 06/26/19 07:00 97.5 97.5 Physical Exam General: Alert, Oriented X3, Cooperative, No acute distress Heart: Regular rate Lungs: Clear Abdomen: Normal bowel sounds, Soft, No tenderness Extremities: No cyanosis Skin: No significant lesion Comment Review of Relevant I have reviewed the following items jose angel (where applicable) has been applied. Labs Laboratory Tests Test 06/24/19 13:00 06/24/19 13:06 06/24/19 13:35 06/24/19 15:45 White Blood Count 4.9 x10^3/uL (4.0-11.0) Red Blood Count 3.71 x10^6/uL (3.50-5.40) Hemoglobin 10.9 g/dL (12.0-15.5) Hematocrit 32.7 % (36.0-47.0) Mean Corpuscular Volume 88 fL (79-100) Mean Corpuscular Hemoglobin 30 pg (25-35) Mean Corpuscular Hemoglobin Concent 34 g/dL (31-37) Red Cell Distribution Width 14.1 % (11.5-14.5) Platelet Count 430 x10^3/uL (140-400) Neutrophils (%) (Auto) 68 % (31-73) Lymphocytes (%) (Auto) 15 % (24-48) Monocytes (%) (Auto) 10 % (0-9) Eosinophils (%) (Auto) 6 % (0-3) Basophils (%) (Auto) 1 % (0-3) Neutrophils # (Auto) 3.3 x10^3/uL (1.8-7.7) Lymphocytes # (Auto) 0.7 x10^3/uL (1.0-4.8) Monocytes # (Auto) 0.5 x10^3/uL (0.0-1.1) Eosinophils # (Auto) 0.3 x10^3/uL (0.0-0.7) Basophils # (Auto) 0.1 x10^3/uL (0.0-0.2) Sodium Level 139 mmol/L (136-145) Potassium Level 4.6 mmol/L (3.5-5.1) Chloride Level 100 mmol/L (98-107) Carbon Dioxide Level 33 mmol/L (21-32) Anion Gap 6 (6-14) Blood Urea Nitrogen 10 mg/dL (7-20) Creatinine 0.7 mg/dL (0.6-1.0) Estimated GFR (Cockcroft-Gault) 84.8 BUN/Creatinine Ratio 14 (6-20) Glucose Level 93 mg/dL (70-99) Lactic Acid Level 0.4 mmol/L (0.4-2.0) Calcium Level 9.0 mg/dL (8.5-10.1) Total Bilirubin 0.4 mg/dL (0.2-1.0) Aspartate Amino Transf (AST/SGOT) 13 U/L (15-37) Alanine Aminotransferase (ALT/SGPT) 12 U/L (14-59) Alkaline Phosphatase 97 U/L (46-116) Troponin I Quantitative < 0.017 ng/mL (0.000-0.055) KX-Ysv-P-Type Natriuretic Peptide 336 pg/mL (0-124) Total Protein 6.8 g/dL (6.4-8.2) Albumin 3.4 g/dL (3.4-5.0) Albumin/Globulin Ratio 1.0 (1.0-1.7) O2 Saturation 97 % (92-99) Arterial Blood pH 7.36 (7.35-7.45) Arterial Blood pCO2 at Patient Temp 45 mmHg (35-46) Arterial Blood pO2 at Patient Temp 110 mmHg (65-108) Arterial Blood HCO3 25 mmol/L (21-28) Arterial Blood Base Excess 0 mmol/L (-3-3) Oxyhemoglobin 96.8 % Methemoglobin 0.4 % (0.0-1.9) Carbon Monoxide, Quantitative 0.2 % (0.0-1.9) FiO2 28 Influenza Type A Antigen Negative (NEGATIVE) Influenza Type B Antigen Negative (NEGATIVE) Urine Collection Type Unknown Urine Color Yellow Urine Clarity Clear Urine pH 7.0 (<5.0-8.0) Urine Specific [place] 1.010 (1.000-1.030) Urine Protein Negative mg/dL (NEG-TRACE) Urine Glucose (UA) Negative mg/dL (NEG) Urine Ketones (Stick) Negative mg/dL (NEG) Urine Blood Negative (NEG) Urine Nitrite Negative (NEG) Urine Bilirubin Negative (NEG) Urine Urobilinogen Dipstick 1.0 mg/dL (0.2 mg/dL) Urine Leukocyte Esterase Small (NEG) Urine RBC 0 /HPF (0-2) Urine WBC 5-10 /HPF (0-4) Urine Squamous Epithelial Cells Occ /LPF Urine Bacteria 0 /HPF (0-FEW) Microbiology 06/24/19 Blood Culture - Preliminary, Resulted NO GROWTH AFTER 1 DAY Medications Current Medications Albuterol Sulfate (Ventolin Neb Soln) 10 mg 1X ONCE CONT NEB Last administered on 06/24/19at 13:36; Start 06/24/19 at 13:15; Stop 06/24/19 at 13:16; Status DC Methylprednisolone Sodium Succinate (SOLU-Medrol 125MG VIAL) 125 mg 1X ONCE IV Last administered on 06/24/19at 13:38; Start 06/24/19 at 13:15; Stop 06/24/19 at 13:16; Status DC Doxycycline Hyclate 100 mg/ Dextrose 100 ml @ 50 mls/hr 1X ONCE IV Last administered on 06/24/19at 13:45; Start 06/24/19 at 13:45; Stop 06/24/19 at 15:44; Status DC Ondansetron HCl (Zofran) 4 mg PRN Q8HRS PRN IV NAUSEA/VOMITING Last administered on 06/24/19at 18:49; Start 06/24/19 at 15:15; Stop 06/25/19 at 15:14; Status DC Fentanyl Citrate (Fentanyl 2ml Vial) 50 mcg PRN Q1HR PRN IV PAIN Last administered on 06/24/19at 21:49; Start 06/24/19 at 15:15; Stop 06/25/19 at 15:14; Status DC Acetaminophen (Tylenol) 650 mg PRN Q4HRS PRN PO FEVER; Start 06/24/19 at 15:15; Stop 06/25/19 at 12:55; Status DC Albuterol/ Ipratropium (Duoneb) 3 ml RTQID NEB Last administered on 06/25/19at 15:13; Start 06/24/19 at 16:00; Stop 06/25/19 at 15:59; Status DC Doxycycline Hyclate 100 mg/ Dextrose 100 ml @ 50 mls/hr BID IV Last administe red on 06/26/19at 09:25; Start 06/24/19 at 21:00 Albuterol Sulfate (Ventolin Neb Soln) 2.5 mg Q4HRS W/A PRN NEB wheezing Last ad ministered on 06/26/19at 07:16; Start 06/24/19 at 17:30 Benzonatate (Tessalon Perle) 100 mg TID PO Last administered on 06/26/19at 09:22; Start 06/24/19 at 21:00 Diltiazem HCl (Cardizem 24hr Cd) 120 mg DAILY PO Last administered on 06/26/19at 09:24; Start 06/25/19 at 09:00 Guaifenesin (Mucinex) 600 mg BID PO Last administered on 06/26/19at 09:24; Start 06/24/19 at 21:00 Acetaminophen/ Hydrocodone Bitart (Lortab 5/325) 0.5 tab PRN Q6HRS PRN PO MODERATE PAIN; Start 06/24/19 at 17:30 Albuterol/ Ipratropium (Duoneb) 3 ml RTBID NEB ; Start 06/25/19 at 20:00 Losartan Potassium (Cozaar) 50 mg DAILY PO Last administered on 06/26/19 09:22; Start 06/25/19 at 09:00 Metoclopramide HCl (Reglan) 5 mg PRN BFRMEALHC PRN PO NAUSEA/VOMITING; Start 06/24/19 at 17:30 Montelukast Sodium (Singulair) 10 mg HS PO Last administered on 06/25/19at 21:40; Start 06/24/19 at 21:00 Nitroglycerin (Nitrostat) 0.4 mg PRN Q5MIN PRN SL CHEST PAIN; Start 06/24/19 at 17:30 Simvastatin (Zocor) 10 mg HS PO Last administered on 06/25/19at 21:41; Start 06/24/19 at 21:00 Tramadol HCl (Ultram) 50 mg PRN Q6HRS PRN PO MILD PAIN 1-3 Last administered on 06/25/19at 14:02; Start 06/24/19 at 17:30 Budesonide (Pulmicort) 0.5 mg RTBID NEB Last administered on 06/26/19at 07:16; Start 06/24/19 at 20:00 Ergocalciferol (Vitamin D2) 50,000 unit WEEKLY PO ; Start 07/01/19 at 09:00 Glimepiride (Amaryl) 1 mg DAILYWBKFT PO Last administered on 06/26/19 09:23; Start 06/25/19 at 08:00 Ondansetron HCl (Zofran Odt) 4 mg PRN Q8HRS PRN PO NAUSEA/VOMITING, 1ST CHOICE PO; Start 06/24/19 at 17:45 Oxybutynin Chloride (Ditropan) 2.5 mg BID PO Last administered on 06/26/19 09:22; Start 06/24/19 at 21:00 Pantoprazole Sodium (Protonix) 40 mg DAILYAC PO Last administered on 06/26/19 09:23; Start 06/25/19 at 07:30 Acetaminophen/ Hydrocodone Bitart (Lortab 5/325) 1 tab PRN Q6HRS PRN PO SEVERE PAIN Last administered on 06/26/19 09:31; Start 06/24/19 at 17:45 Guaifenesin (Robitussin Dm) 10 ml PRN Q4HRS PRN PO COUGH Last administered on 06/25/19at 21:40; Start 06/25/19 at 06:30 Lactobacillus Rhamnosus (Culturelle) 1 cap BID PO Last administered on 06/26/19at 09:23; Start 06/25/19 at 21:00 Active Scripts Active [place] 5-325 Tablet (Acetaminophen/Hydrocodone Bitart) 1 Each Tablet 0.5-1 Tab PO PRN Q6HRS PRN Doxycycline Monohydrate 100 Mg Capsule 1 Cap PO BID 5 Days Prednisone 20 Mg Tablet 1 Tab PO DAILY 5 Days Indomethacin 50 Mg Capsule 1 Cap PO BID PRN Zofran (Ondansetron Hcl) 4 Mg Tablet 1 Tab PO Q8HRS PRN Tramadol Hcl 50 Mg Tablet 50 Mg PO PRN Q6HRS PRN 6 Days Metoclopramide Hcl 5 Mg Tablet 5 Mg PO PRN BFRMEALHC PRN Protonix Packet (Pantoprazole Sodium) 40 Mg Granpkt.dr 40 Mg PO DAILY 30 Days Reported NITROGLYCERIN SubLingual (Nitroglycerin) 0.4 Mg Tab.subl 1 Tab SL UD Benzonatate 100 Mg Capsule 1 Cap PO TID Glimepiride 1 Mg Tablet 1 Tab PO DAILY Duoneb 0.5-3(2.5) Mg/3 Ml (Albuterol/Ipratropium) 3 Ml Ampul.neb 3 Ml NEB BID Symbicort 160-4.5 Mcg Inhaler (Budesonide/Formoterol Fumarate) 10.2 Gm Hfa.aer.ad 2 Puff IH BID Mucinex (Guaifenesin) 600 Mg Tablet.er 1 Tab PO BID Vitamin D (Cholecalciferol (Vitamin D3)) 50,000 Unit Capsule 50,000 Unit PO WEEKLY Ditropan Xl (Oxybutynin Chloride) 5 Mg Tab.er.24 5 Mg PO DAILY Losartan Potassium 50 Mg Tablet 50 Mg PO DAILY Simvastatin 10 Mg Tablet 10 Mg PO HS Proair Hfa Inhaler (Albuterol Sulfate) 8.5 Gm Hfa.aer.ad 17 Gm IH Q4HRS W/A PRN Spiriva (Tiotropium [place]) 18 Mcg Cap.w.dev 18 Mcg IH DAILY Singulair Tablet (Montelukast Sodium) 10 Mg Tablet 10 Mg PO HS Diltiazem 24HR Cd (Diltiazem Hcl) 120 Mg Cap.er.24h 120 Mg PO DAILY Vitals/I & O Vital Sign - Last 24 Hours 06/25/19 06/25/19 06/25/19 06/25/19 11:50 15:03 15:14 19:33 Temp 97.0 98.3 97.8 97.0 98.3 97.8 Pulse 75 73 100 Resp 20 18 20 B/P (MAP) 111/57 (75) 100/54 (69) 103/70 (81) Pulse Ox 99 97 97 O2 Delivery Nasal Cannula Nasal Cannula Nasal Cannula Nasal Cannula O2 Flow Rate 3.0 3.0 2.0 2.0 06/25/19 06/25/19 06/25/19 06/26/19 20:00 21:30 23:17 03:02 Temp 98.2 98.2 Pulse 91 Resp 20 B/P (MAP) 124/74 (91) Pulse Ox 97 98 O2 Delivery Nasal Cannula Nasal Cannula Nasal Cannula Nasal Cannula O2 Flow Rate 3.0 2.0 2.0 06/26/19 06/26/19 06/26/19 06/26/19 03:11 04:02 07:00 07:18 Temp 97.5 97.5 97.5 97.5 Pulse 88 92 Resp 18 17 B/P (MAP) 135/85 (102) 123/73 (90) Pulse Ox 97 98 94 O2 Delivery Nasal Cannula Nasal Cannula Nasal Cannula Nasal Cannula O2 Flow Rate 3.0 3.0 3.0 06/26/19 06/26/19 06/26/19 06/26/19 08:00 09:22 09:24 09:31 Pulse 92 92 Resp 18 B/P (MAP) 123/73 123/73 O2 Delivery Nasal Cannula Nasal Cannula O2 Flow Rate 3.0 3.0 Intake and Output 06/25/19 06/25/19 06/26/19 15:00 23:00 07:00 Intake Total 780 ml 480 ml Output Total 1 ml Balance 780 ml 479 ml JUNE CORREA MD Jun 26, 2019 10:37
[2019-06-26 10:46] VITALS: BP 135/80
--- NOTE | 2019-06-26 14:18 | NUR ---
SS following for discharge planning. SS reviewed pt chart and discussed with RN. Pt is from home with spouse and is currently requiring oxygen. Pt has home oxygen. SS will continue to follow for discharge planning.
[2019-06-26 15:00] VITALS: BP 113/70
[2019-06-26 19:15] VITALS: BP 142/77
[2019-06-26] MEDS: SIMVASTATIN 10 MG TABLET PO SCH (21:05)
[2019-06-26] MEDS: MONTELUKAST SODIUM 10 MG TABLET. PO SCH (21:05)
[2019-06-26 23:15] VITALS: BP 113/78
[2019-06-27 03:15] VITALS: BP 127/85
[2019-06-27 07:15] VITALS: BP 142/93
[2019-06-27] MEDS: IPRATRPIUM/ALBUTEROL 0.5/2.5MG 3 ML NEBU. NEB SCH (07:47)
[2019-06-27] MEDS: BUDESONIDE 0.5 MG/2 ML NEBU. NEB SCH (07:47)
--- NOTE | 2019-06-27 08:10 | PDOC ---
PROGRESS NOTES History of Present Illness History of Present Illness VTE Prophylaxis Ordered VTE Prophylaxis Devices: No VTE Pharmacological Prophylaxi: Yes discharge dx Assessment/Plan IMPRESSION: PNEUMONIA/ Consolidation of the right lower lobe of the lung likely chronic consolidation is unchanged. Mild airspace opacity identified left lingula likely atelectasis or infiltrate. ACUTE COPD EXAC Acute hypoxic resp failure Small focus left basilar opacity of indeterminate significance. needs follow-up two-view chest x-ray exam for more definitive assessment. severe scoliosis HYPERTENSION ascending aorta measures 4.2 cm in transverse dimension BY CT Transmitral Doppler flow pattern is Grade I-abnormal relaxation pattern. Trace aortic regurgitation. Trace mitral regurgitation. Mild tricuspid regurgitation with an estimated PAP of 44 mmHg. 06/21 ECHO C/W MODERATE PULM HTN PLAN ADMIT EMPERIC IV ANTIBIOTICS, DOXYCYCLINE 100MG BID CONSULT PULM MED TELE BED duonebs qid home meds FULL CODE DVT PROPHYLAXIS PT/OT PREDNISONE 40MG PO DAILY 06/25 SOA SLOW TO IMPROVE 06/26 d/c home on levaquin d/c planning 35 min Vitals Vitals Vital Signs Date Time Temp Pulse Resp B/P (MAP) Pulse Ox O2 Delivery O2 Flow Rate FiO2 06/27/19 07:47 Nasal Cannula 3.0 06/27/19 03:15 97.8 82 19 127/85 (99) 98 97.8 Physical Exam General: Alert, Oriented X3, Cooperative, No acute distress Heart: Regular rate Lungs: Clear Abdomen: Normal bowel sounds, Soft, No tenderness Extremities: No cyanosis Skin: No significant lesion Comment Review of Relevant I have reviewed the following items jose angel (where applicable) has been applied. Labs Microbiology 06/24/19 Blood Culture - Preliminary, Resulted NO GROWTH AFTER 2 DAYS Medications Current Medications Albuterol Sulfate (Ventolin Neb Soln) 10 mg 1X ONCE CONT NEB Last administered on 06/24/19at 13:36; Start 06/24/19 at 13:15; Stop 06/24/19 at 13:16; Status DC Methylprednisolone Sodium Succinate (SOLU-Medrol 125MG VIAL) 125 mg 1X ONCE IV Last administered on 06/24/19at 13:38; Start 06/24/19 at 13:15; Stop 06/24/19 at 13:16; Status DC Doxycycline Hyclate 100 mg/ Dextrose 100 ml @ 50 mls/hr 1X ONCE IV Last administered on 06/24/19at 13:45; Start 06/24/19 at 13:45; Stop 06/24/19 at 15:44; Status DC Ondansetron HCl (Zofran) 4 mg PRN Q8HRS PRN IV NAUSEA/VOMITING Last administered on 06/24/19at 18:49; Start 06/24/19 at 15:15; Stop 06/25/19 at 15:14; Status DC Fentanyl Citrate (Fentanyl 2ml Vial) 50 mcg PRN Q1HR PRN IV PAIN Last administered on 06/24/19at 21:49; Start 06/24/19 at 15:15; Stop 06/25/19 at 15:14; Status DC Acetaminophen (Tylenol) 650 mg PRN Q4HRS PRN PO FEVER; Start 06/24/19 at 15:15; Stop 06/25/19 at 12:55; Status DC Albuterol/ Ipratropium (Duoneb) 3 ml RTQID NEB Last administered on 06/25/19at 15:13; Start 06/24/19 at 16:00; Stop 06/25/19 at 15:59; Status DC Doxycycline Hyclate 100 mg/ Dextrose 100 ml @ 50 mls/hr BID IV Last administered on 06/26/19at 21:07; Start 06/24/19 at 21:00 Albuterol Sulfate (Ventolin Neb Soln) 2.5 mg Q4HRS W/A PRN NEB wheezing Last administered on 06/26/19at 12:56; Start 06/24/19 at 17:30 Benzonatate (Tessalon Perle) 100 mg TID PO Last administered on 06/26/19at 21:06; Start 06/24/19 at 21:00 Diltiazem HCl (Cardizem 24hr Cd) 120 mg DAILY PO Last administered on 06/26/19at 09:24; Start 06/25/19 at 09:00 Guaifenesin (Mucinex) 600 mg BID PO Last administered on 06/26/19at 21:05; Start 06/24/19 at 21:00 Acetaminophen/ Hydrocodone Bitart (Lortab 5/325) 0.5 tab PRN Q6HRS PRN PO MODERATE PAIN; Start 06/24/19 at 17:30 Albuterol/ Ipratropium (Duoneb) 3 ml RTBID NEB Last administered on 06/27/19 07:47; Start 06/25/19 at 20:00 Losartan Potassium (Cozaar) 50 mg DAILY PO Last administered on 06/26/19at 09:22; Start 06/25/19 at 09:00 Metoclopramide HCl (Reglan) 5 mg PRN BFRMEALHC PRN PO NAUSEA/VOMITING; Start 06/24/19 at 17:30 Montelukast Sodium (Singulair) 10 mg HS PO Last administered on 06/26/19at 21:05; Start 06/24/19 at 21:00 Nitroglycerin (Nitrostat) 0.4 mg PRN Q5MIN PRN SL CHEST PAIN; Start 06/24/19 at 17:30 Simvastatin (Zocor) 10 mg HS PO Last administered on 06/26/19at 21:05; Start 06/24/19 at 21:00 Tramadol HCl (Ultram) 50 mg PRN Q6HRS PRN PO MILD PAIN 1-3 Last administered on 06/25/19at 14:02; Start 06/24/19 at 17:30 Budesonide (Pulmicort) 0.5 mg RTBID NEB Last administered on 06/27/19at 07:47; Start 06/24/19 at 20:00 Ergocalciferol (Vitamin D2) 50,000 unit WEEKLY PO ; Start 07/01/19 at 09:00 Glimepiride (Amaryl) 1 mg DAILYWBKFT PO Last administered on 06/26/19at 09:23; Start 06/25/19 at 08:00 Ondansetron HCl (Zofran Odt) 4 mg PRN Q8HRS PRN PO NAUSEA/VOMITING, 1ST CHOICE PO; Start 06/24/19 at 17:45 Oxybutynin Chloride (Ditropan) 2.5 mg BID PO Last administered on 06/26/19at 21:06; Start 06/24/19 at 21:00 Pantoprazole Sodium (Protonix) 40 mg DAILYAC PO Last administered on 06/26/19at 09:23; Start 06/25/19 at 07:30 Acetaminophen/ Hydrocodone Bitart (Lortab 5/325) 1 tab PRN Q6HRS PRN PO SEVERE PAIN Last administered on 06/26/19at 09:31; Start 06/24/19 at 17:45 Guaifenesin (Robitussin Dm) 10 ml PRN Q4HRS PRN PO COUGH Last administered on 06/25/19at 21:40; Start 06/25/19 at 06:30 Lactobacillus Rhamnosus (Culturelle) 1 cap BID PO Last administered on 06/26/19at 21:06; Start 06/25/19 at 21:00 Active Scripts Active [place] 5-325 Tablet (Acetaminophen/Hydrocodone Bitart) 1 Each Tablet 0.5-1 Tab PO PRN Q6HRS PRN Doxycycline Monohydrate 100 Mg Capsule 1 Cap PO BID 5 Days Prednisone 20 Mg Tablet 1 Tab PO DAILY 5 Days Indomethacin 50 Mg Capsule 1 Cap PO BID PRN Zofran (Ondansetron Hcl) 4 Mg Tablet 1 Tab PO Q8HRS PRN Tramadol Hcl 50 Mg Tablet 50 Mg PO PRN Q6HRS PRN 6 Days Metoclopramide Hcl 5 Mg Tablet 5 Mg PO PRN BFRMEALHC PRN Protonix Packet (Pantoprazole Sodium) 40 Mg Granpkt.dr 40 Mg PO DAILY 30 Days Reported NITROGLYCERIN SubLingual (Nitroglycerin) 0.4 Mg Tab.subl 1 Tab SL UD Benzonatate 100 Mg Capsule 1 Cap PO TID Glimepiride 1 Mg Tablet 1 Tab PO DAILY Duoneb 0.5-3(2.5) Mg/3 Ml (Albuterol/Ipratropium) 3 Ml Ampul.neb 3 Ml NEB BID Symbicort 160-4.5 Mcg Inhaler (Budesonide/Formoterol Fumarate) 10.2 Gm Hfa.aer.ad 2 Puff IH BID Mucinex (Guaifenesin) 600 Mg Tablet.er 1 Tab PO BID Vitamin D (Cholecalciferol (Vitamin D3)) 50,000 Unit Capsule 50,000 Unit PO WEEKLY Ditropan Xl (Oxybutynin Chloride) 5 Mg Tab.er.24 5 Mg PO DAILY Losartan Potassium 50 Mg Tablet 50 Mg PO DAILY Simvastatin 10 Mg Tablet 10 Mg PO HS Proair Hfa Inhaler (Albuterol Sulfate) 8.5 Gm Hfa.aer.ad 17 Gm IH Q4HRS W/A PRN Spiriva (Tiotropium [place]) 18 Mcg Cap.w.dev 18 Mcg IH DAILY Singulair Tablet (Montelukast Sodium) 10 Mg Tablet 10 Mg PO HS Diltiazem 24HR Cd (Diltiazem Hcl) 120 Mg Cap.er.24h 120 Mg PO DAILY Vitals/I & O Vital Sign - Last 24 Hours 06/26/19 06/26/19 06/26/19 06/26/19 09:22 09:24 09:31 10:31 Pulse 92 92 Resp 18 18 B/P (MAP) 123/73 123/73 O2 Delivery Nasal Cannula Nasal Cannula O2 Flow Rate 3.0 3.0 06/26/19 06/26/19 06/26/19 06/26/19 10:46 12:58 15:00 19:15 Temp 98.0 97.8 98.3 98.0 97.8 98.3 Pulse 92 95 91 Resp 17 17 19 B/P (MAP) 135/80 (98) 113/70 (84) 142/77 (98) Pulse Ox 100 98 98 O2 Delivery Nasal Cannula Nasal Cannula Nasal Cannula Nasal Cannula O2 Flow Rate 3.0 3.0 3.0 3.0 06/26/19 06/26/19 06/26/19 06/27/19 20:00 21:10 23:15 03:15 Temp 97.7 97.8 97.7 97.8 Pulse 85 82 Resp 19 19 B/P (MAP) 113/78 (90) 127/85 (99) Pulse Ox 94 98 98 O2 Delivery Nasal Cannula Nasal Cannula Nasal Cannula Nasal Cannula O2 Flow Rate 3.0 3.0 3.0 3.0 06/27/19 07:47 O2 Delivery Nasal Cannula O2 Flow Rate 3.0 Intake and Output 06/26/19 06/26/19 06/27/19 15:00 23:00 07:00 Intake Total 600 ml 300 ml 270 ml Balance 600 ml 300 ml 270 ml JUNE CORREA MD Jun 27, 2019 08:10
[2019-06-27] MEDS: LOSARTAN POTASSIUM 50 MG TABLET. PO SCH (08:35)
[2019-06-27] MEDS: GLIMEPIRIDE 2 MG TABLET. PO SCH (08:37)
[2019-06-27] MEDS: HYDROcodone/APAP 5/325MG 1 TAB TABLET PO PRN ×2 (08:38→15:34)
[2019-06-27] MEDS: BENZONATATE 100 MG CAPSULE. PO SCH ×2 (08:38→15:33)
[2019-06-27] MEDS: LACTOBACILLUS RHAMNOSUS GG 1 CAPSULE. PO SCH (08:38)
[2019-06-27] MEDS: OXYBUTYNIN CHLORIDE 5 MG TABLET PO SCH (08:39)
[2019-06-27] MEDS: PANTOPRAZOLE 40 MG TABLET.DR. PO SCH (08:39)
[2019-06-27] MEDS: DOXYCYCLINE HYCLATE 100 MG in IV DEXTROSE 5% 100ML 100 ML IV SCH (08:40)
--- NOTE | 2019-06-27 09:25 | PDOC ---
PULMONARY PROGRESS NOTES Subjective Patient slept well and not more short of breath no chest pain no pressure no increasing cough back to baseline Vitals Vital Signs Date Time Temp Pulse Resp B/P (MAP) Pulse Ox O2 Delivery O2 Flow Rate FiO2 06/27/19 08:38 17 Nasal Cannula 3.0 06/27/19 08:38 77 142/93 06/27/19 07:15 97.8 97 97.8 ROS: No Nausea, No Chest Pain, No Abdominal Pain, No Increase Cough General: Alert, Oriented X4, No acute distress HEENT: Other Lungs: Clear Cardiovascular: S1, S2 Abdomen: Soft, Non-tender Neuro Exam: Alert Extremities: No Edema Medications Active Scripts Medications Dose Route/Sig Max Daily Dose Days Date Category Zoe 5-325 Tablet (Acetaminophen/Hydrocodone Bitart) 1 Each Tablet 0.5-1 Tab PO PRN Q6HRS PRN 04/16/19 Rx Doxycycline Monohydrate 100 Mg Capsule 1 Cap PO BID 5 04/02/19 Rx Prednisone 20 Mg Tablet 1 Tab PO DAILY 5 04/02/19 Rx Indomethacin 50 Mg Capsule 1 Cap PO BID PRN 12/31/18 Rx Zofran (Ondansetron Hcl) 4 Mg Tablet 1 Tab PO Q8HRS PRN 12/11/18 Rx Tramadol Hcl 50 Mg Tablet 50 Mg PO PRN Q6HRS PRN 6 10/15/18 Rx NITROGLYCERIN SubLingual (Nitroglycerin) 0.4 Mg Tab.subl 1 Tab SL UD 10/14/18 Reported Benzonatate 100 Mg Capsule 1 Cap PO TID 10/14/18 Reported Glimepiride 1 Mg Tablet 1 Tab PO DAILY 10/14/18 Reported Duoneb 0.5-3(2.5) Mg/3 Ml (Albuterol/Ipratropium) 3 Ml Ampul.neb 3 Ml NEB BID 10/14/18 Reported Symbicort 160-4.5 Mcg Inhaler (Budesonide/Formoterol Fumarate) 10.2 Gm Hfa.aer.ad 2 Puff IH BID 10/14/18 Reported Metoclopramide Hcl 5 Mg Tablet 5 Mg PO PRN BFRMEALHC PRN 01/24/18 Rx Protonix Packet (Pantoprazole Sodium) 40 Mg Granpkt.dr 40 Mg PO DAILY 30 01/24/18 Rx Mucinex (Guaifenesin) 600 Mg Tablet.er 1 Tab PO BID 08/16/16 Reported Vitamin D (Cholecalciferol (Vitamin D3)) 50,000 Unit Capsule 50,000 Unit PO WEEKLY 08/16/16 Reported Ditropan Xl (Oxybutynin Chloride) 5 Mg Tab.er.24 5 Mg PO DAILY 08/16/16 Reported Losartan Potassium 50 Mg Tablet 50 Mg PO DAILY 08/16/16 Reported Simvastatin 10 Mg Tablet 10 Mg PO HS 08/16/16 Reported Proair Hfa Inhaler (Albuterol Sulfate) 8.5 Gm Hfa.aer.ad 17 Gm IH Q4HRS W/A PRN 07/23/13 Reported Spiriva (Tiotropium [place]) 18 Mcg Cap.w.dev 18 Mcg IH DAILY 07/23/13 Reported Singulair Tablet (Montelukast Sodium) 10 Mg Tablet 10 Mg PO HS 07/23/13 Reported Diltiazem 24HR Cd (Diltiazem Hcl) 120 Mg Cap.er.24h 120 Mg PO DAILY 07/23/13 Reported Impression . IMPRESSION: 1. Acute on chronic respiratory failure secondary to acute exacerbation of chronic obstructive pulmonary disease, acute bronchitis. 2. Abnormal CT of the chest. 3. Acute exacerbation of chronic obstructive pulmonary disease. 4. Acute bronchitis. 5. Hypertension. 6. Diabetes mellitus. 7. History of congestive heart failure. CT CHEST IMPRESSION: 1. Consolidation of the right lower lobe of the lung likely chronic consolidation is unchanged. 2. Mild airspace opacity identified left lingula likely atelectasis or infiltrate. Plan . Okay to discharge home, on Levaquin, Patient to call me if her symptoms worsen Taper steroids. WILL NEED CT OF CHEST IN 2 MONTHS RUSSELL ROBERTSON MD Jun 27, 2019 09:25
[2019-06-27 10:37] VITALS: BP 140/72
--- NOTE | 2019-06-27 13:01 | PDOC3 ---
Discharge Summary Date of Admission: Jun 24, 2019 Date of Discharge: Jun 27, 2019 Follow-Up: 3-5 days Admitting Diagnosis comment: discharge dx Assessment/Plan IMPRESSION: PNEUMONIA/ Consolidation of the right lower lobe of the lung likely chronic consolidation is unchanged. Mild airspace opacity identified left lingula likely atelectasis or infiltrate. ACUTE COPD EXAC Acute hypoxic resp failure Small focus left basilar opacity of indeterminate significance. needs follow-up two-view chest x-ray exam for more definitive assessment. severe scoliosis HYPERTENSION ascending aorta measures 4.2 cm in transverse dimension BY CT Transmitral Doppler flow pattern is Grade I-abnormal relaxation pattern. Trace aortic regurgitation. Trace mitral regurgitation. Mild tricuspid regurgitation with an estimated PAP of 44 mmHg. 06/21 ECHO C/W MODERATE PULM HTN PLAN ADMIT EMPERIC IV ANTIBIOTICS, DOXYCYCLINE 100MG BID CONSULT PULM MED TELE BED duonebs qid home meds FULL CODE DVT PROPHYLAXIS PT/OT PREDNISONE 40MG PO DAILY 06/25 SOA SLOW TO IMPROVE 06/26 d/c home on levaquin d/c planning 35 min Vitals Vitals Vital Signs Date Time Temp Pulse Resp B/P (MAP) Pulse Ox O2 Delivery O2 Flow Rate FiO2 06/27/19 07:47 Nasal Cannula 3.0 06/27/19 03:15 97.8 82 19 127/85 (99) 98 97.8 Physical Exam General: Alert, Oriented X3, Cooperative, No acute distress Heart: Regular rate Lungs: Clear Abdomen: Normal bowel sounds, Soft, No tenderness Extremities: No cyanosis Skin: No significant lesion Comment Review of Relevant I have reviewed the following items jose angel (where applicable) has been applied. Labs Microbiology 06/24/19 Blood Culture - Preliminary, Resulted NO GROWTH AFTER 2 DAYS Brief Hospital Course Ms. Moncada is a 63 old [sex] who presented with [copd exac ] CONDITION AT DISCHARGE: Improved Discharge Medications Current Medications Albuterol Sulfate (Ventolin Neb Soln) 10 mg 1X ONCE CONT NEB Last administered on 06/24/19at 13:36; Start 06/24/19 at 13:15; Stop 06/24/19 at 13:16; Status DC Methylprednisolone Sodium Succinate (SOLU-Medrol 125MG VIAL) 125 mg 1X ONCE IV Last administered on 06/24/19at 13:38; Start 06/24/19 at 13:15; Stop 06/24/19 at 13:16; Status DC Doxycycline Hyclate 100 mg/ Dextrose 100 ml @ 50 mls/hr 1X ONCE IV Last administered on 06/24/19at 13:45; Start 06/24/19 at 13:45; Stop 06/24/19 at 15:44; Status DC Ondansetron HCl (Zofran) 4 mg PRN Q8HRS PRN IV NAUSEA/VOMITING Last a dministered on 06/24/19at 18:49; Start 06/24/19 at 15:15; Stop 06/25/19 at 15:14; Status DC Fentanyl Citrate (Fentanyl 2ml Vial) 50 mcg PRN Q1HR PRN IV PAIN Last administered on 06/24/19at 21:49; Start 06/24/19 at 15:15; Stop 06/25/19 at 15:14; Status DC Acetaminophen (Tylenol) 650 mg PRN Q4HRS PRN PO FEVER; Start 06/24/19 at 15:15; Stop 06/25/19 at 12:55; Status DC Albuterol/ Ipratropium (Duoneb) 3 ml RTQID NEB Last administered on 06/25/19at 15:13; Start 06/24/19 at 16:00; Stop 06/25/19 at 15:59; Status DC Doxycycline Hyclate 100 mg/ Dextrose 100 ml @ 50 mls/hr BID IV Last administered on 06/27/19at 08:40; Start 06/24/19 at 21:00 Albuterol Sulfate (Ventolin Neb Soln) 2.5 mg Q4HRS W/A PRN NEB wheezing Last administered on 06/26/19at 12:56; Start 06/24/19 at 17:30 Benzonatate (Tessalon Perle) 100 mg TID PO Last administered on 06/27/19at 08:38; Start 06/24/19 at 21:00 Diltiazem HCl (Cardizem 24hr Cd) 120 mg DAILY PO Last administered on 06/27/19at 08:38; Start 06/25/19 at 09:00 Guaifenesin (Mucinex) 600 mg BID PO Last administered on 06/27/19at 08:35; Start 06/24/19 at 21:00 Acetaminophen/ Hydrocodone Bitart (Lortab 5/325) 0.5 tab PRN Q6HRS PRN PO MODERATE PAIN; Start 06/24/19 at 17:30 Albuterol/ Ipratropium (Duoneb) 3 ml RTBID NEB Last administered on 06/27/19 07:47; Start 06/25/19 at 20:00 Losartan Potassium (Cozaar) 50 mg DAILY PO Last administered on 06/27/19 08:35; Start 06/25/19 at 09:00 Metoclopramide HCl (Reglan) 5 mg PRN BFRMEALHC PRN PO NAUSEA/VOMITING; Start 06/24/19 at 17:30 Montelukast Sodium (Singulair) 10 mg HS PO Last administered on 06/26/19at 21:05; Start 06/24/19 at 21:00 Nitroglycerin (Nitrostat) 0.4 mg PRN Q5MIN PRN SL CHEST PAIN; Start 06/24/19 at 17:30 Simvastatin (Zocor) 10 mg HS PO Last administered on 06/26/19at 21:05; Start 06/24/19 at 21:00 Tramadol HCl (Ultram) 50 mg PRN Q6HRS PRN PO MILD PAIN 1-3 Last administered on 06/25/19at 14:02; Start 06/24/19 at 17:30 Budesonide (Pulmicort) 0.5 mg RTBID NEB Last administered on 06/27/19 07:47; Start 06/24/19 at 20:00 Ergocalciferol (Vitamin D2) 50,000 unit WEEKLY PO ; Start 07/01/19 at 09:00 Glimepiride (Amaryl) 1 mg DAILYWBKFT PO Last administered on 06/27/19at 08:37; Start 06/25/19 at 08:00 Ondansetron HCl (Zofran Odt) 4 mg PRN Q8HRS PRN PO NAUSEA/VOMITING, 1ST CHOICE PO; Start 06/24/19 at 17:45 Oxybutynin Chloride (Ditropan) 2.5 mg BID PO Last administered on 06/27/19 08:39; Start 06/24/19 at 21:00 Pantoprazole Sodium (Protonix) 40 mg DAILYAC PO Last administered on 06/27/19at 08:39; Start 06/25/19 at 07:30 Acetaminophen/ Hydrocodone Bitart (Lortab 5/325) 1 tab PRN Q6HRS PRN PO SEVERE PAIN Last administered on 06/27/19at 08:38; Start 06/24/19 at 17:45 Guaifenesin (Robitussin Dm) 10 ml PRN Q4HRS PRN PO COUGH Last administered on 06/25/19at 21:40; Start 06/25/19 at 06:30 Lactobacillus Rhamnosus (Culturelle) 1 cap BID PO Last administered on 06/27/19at 08:38; Start 06/25/19 at 21:00 Active Scripts Active [place] 5-325 Tablet (Acetaminophen/Hydrocodone Bitart) 1 Each Tablet 0.5-1 Tab PO PRN Q6HRS PRN Doxycycline Monohydrate 100 Mg Capsule 1 Cap PO BID 5 Days Prednisone 20 Mg Tablet 1 Tab PO DAILY 5 Days Indomethacin 50 Mg Capsule 1 Cap PO BID PRN Zofran (Ondansetron Hcl) 4 Mg Tablet 1 Tab PO Q8HRS PRN Tramadol Hcl 50 Mg Tablet 50 Mg PO PRN Q6HRS PRN 6 Days Metoclopramide Hcl 5 Mg Tablet 5 Mg PO PRN BFRMEALHC PRN Protonix Packet (Pantoprazole Sodium) 40 Mg Granpkt.dr 40 Mg PO DAILY 30 Days Reported NITROGLYCERIN SubLingual (Nitroglycerin) 0.4 Mg Tab.subl 1 Tab SL UD Benzonatate 100 Mg Capsule 1 Cap PO TID Glimepiride 1 Mg Tablet 1 Tab PO DAILY Duoneb 0.5-3(2.5) Mg/3 Ml (Albuterol/Ipratropium) 3 Ml Ampul.neb 3 Ml NEB BID Symbicort 160-4.5 Mcg Inhaler (Budesonide/Formoterol Fumarate) 10.2 Gm Hfa.aer.ad 2 Puff IH BID Mucinex (Guaifenesin) 600 Mg Tablet.er 1 Tab PO BID Vitamin D (Cholecalciferol (Vitamin D3)) 50,000 Unit Capsule 50,000 Unit PO WEEKLY Ditropan Xl (Oxybutynin Chloride) 5 Mg Tab.er.24 5 Mg PO DAILY Losartan Potassium 50 Mg Tablet 50 Mg PO DAILY Simvastatin 10 Mg Tablet 10 Mg PO HS Proair Hfa Inhaler (Albuterol Sulfate) 8.5 Gm Hfa.aer.ad 17 Gm IH Q4HRS W/A PRN Spiriva (Tiotropium [place]) 18 Mcg Cap.w.dev 18 Mcg IH DAILY Singulair Tablet (Montelukast Sodium) 10 Mg Tablet 10 Mg PO HS Diltiazem 24HR Cd (Diltiazem Hcl) 120 Mg Cap.er.24h 120 Mg PO DAILY Vital Signs Vital Signs Date Time Temp Pulse Resp B/P (MAP) Pulse Ox O2 Delivery O2 Flow Rate FiO2 06/27/19 10:37 97.6 91 17 140/72 (94) 95 Room Air 97.6 06/27/19 09:38 3.0 Allergies Allergies Coded Allergies Type Severity Reaction Last Updated Verified aspirin Allergy Intermediate 06/13/18 Yes Disposition/Orders: D/C to Home JUNE CORREA MD Jun 27, 2019 13:01
[2019-06-27] MEDS ORDERED: LACT1CAP19 PO (13:03)
[2019-06-27] MEDS ORDERED: GUAI5SYR PO (13:03)
[2019-06-27] MEDS ORDERED: LEVO500T59 PO (13:03)
--- NOTE | 2019-06-27 13:05 | SNU/HH DC ---
DISCHARGE WITH HOME HEALTH DISCHARGE INFORMATION: Condition on Discharge: Stable CODE STATUS: Code Status: Full HOME HEALTH: Face to Face: I certify this patient is under my care and that I, or a nurse practitioner or physician's facilities maintenance assistant working with me, had a face to face encounter that meets the physician face to face encounter requirements with this patient on []. Medical Complications: COPD RN For Eval/Treatment: Yes Physical Therapy For: Evalulation/Treatment Occupational Therapy For: Evaluation/Treatment Speech Language Pathology For: Evaluation/Treatment Home Health Aide For: Self-care [employer] DESIGNER For: Community Resources Pt Meets Homebound Status: Fatigue w/ amb. POST DISCHARGE ORDERS: Activity Instructions for Disc: No restrictions Weight Bearing Status after Di: No restrictions DIET AFTER DISCHARGE: Regular CHECKS AFTER DISCHARGE: Checks after discharge: Check blood press - daily, Check blood sugar, ac/hs, Check your Temp as needed FOLLOW-UP: PCP to follow Home Health: 06/28 Follow up with: pcp 5 days TREATMENT/EQUIPMENT ORDERS: Adaptive Equipment Issued: None, Front wheeled walker CERTIFICATION STATEMENT: Certification Statement: Certification Statement: Based on the above finding, I certify that this patient is confined to the home and needs intermittent group home care, physical therapy and/or speech therapy, or continues to need occupational therapy.~ This patient is under my care, and I have initiated the establishment of the plan of care.~ This patient will be followed by myself or a community physician who will periodically review the plan of care. Home Meds Active Scripts Levofloxacin (LEVAQUIN) 500 Mg Tablet, 1 TAB PO DAILY for copd for 10 Days, #10 TAB 0 Refills Prov:JUNE CORREA MD 06/27/19 Lactobacillus Rhamnosus Gg (CULTURELLE) 1 Each Cap.sprink, 1 CAP PO BID for supplement for 30 Days, #60 CAP Prov:JUNE CORREA MD 06/27/19 Guaifenesin/Dextromethorphan (GUAIFENESIN DM SYRUP) 5 Ml Syrup, 10 ML PO PRN Q4HRS PRN for COUGH for 10 Days, #120 MISC Prov:JUNE CORREA MD 06/27/19 Prednisone (PREDNISONE) 20 Mg Tablet, 1 TAB PO DAILY for COPD for 5 Days, #5 TAB Prov:NABIL SCHERER MD 04/02/19 Ondansetron Hcl (ZOFRAN) 4 Mg Tablet, 1 TAB PO Q8HRS PRN for NAUSEA, #20 TAB Prov:RANDALL KNIGHT DO 12/11/18 Tramadol Hcl (TRAMADOL HCL) 50 Mg Tablet, 50 MG PO PRN Q6HRS PRN for PAIN for 6 Days, #18 TAB Prov:NABIL SCHERER MD 10/15/18 Metoclopramide Hcl (METOCLOPRAMIDE HCL) 5 Mg Tablet, 5 MG PO PRN BFRMEALHC PRN for NAUSEA/VOMITING, #60 TAB Prov:GARRY DUBON MD 01/24/18 Pantoprazole Sodium (PROTONIX PACKET) 40 Mg Granpkt.dr, 40 MG PO DAILY for GERD for 30 Days, #30 PKT Prov:GARRY DUBON MD 01/24/18 Reported Medications Nitroglycerin (NITROGLYCERIN SubLingual) 0.4 Mg Tab.subl, 1 TAB SL UD for CHEST PAIN, #25 TAB 3 Refills 10/14/18 Benzonatate (BENZONATATE) 100 Mg Capsule, 1 CAP PO TID for COUGH, #30 CAP 10/14/18 Glimepiride (GLIMEPIRIDE) 1 Mg Tablet, 1 TAB PO DAILY for DM, #30 TAB 5 Refills 10/14/18 Ipratropium/Albuterol Sulfate (DUONEB 0.5-3(2.5) MG/3 ML) 3 Ml Ampul.neb, 3 ML NEB BID for COPD, EACH 10/14/18 Budesonide/Formoterol Fumarate (SYMBICORT 160-4.5 MCG INHALER) 10.2 Gm Hfa.aer.ad, 2 PUFF IH BID for COPD, #10.6 GM 3 Refills 10/14/18 Guaifenesin (MUCINEX) 600 Mg Tablet.er, 1 TAB PO BID for congestion, #20 TAB 08/16/16 Cholecalciferol (Vitamin D3) (Vitamin D) 50,000 Unit Capsule, 47610 UNIT PO WEEKLY for supplement, CAP 08/16/16 Oxybutynin Chloride (DITROPAN XL) 5 Mg Tab.er.24, 5 MG PO DAILY for bladder, TAB.SR 08/16/16 Losartan Potassium (LOSARTAN POTASSIUM) 50 Mg Tablet, 50 MG PO DAILY for HTN, TAB 08/16/16 Simvastatin (SIMVASTATIN) 10 Mg Tablet, 10 MG PO HS for FOR CHOLESTEROL, #30 TAB 0 Refills 08/16/16 Albuterol Sulfate (PROAIR HFA INHALER) 8.5 Gm Hfa.aer.ad, 17 GM IH Q4HRS W/A PRN for wheezing 07/23/13 Tiotropium [place] (SPIRIVA) 18 Mcg Cap.w.dev, 18 MCG IH DAILY for asthma 07/23/13 Montelukast Sodium (SINGULAIR TABLET ) 10 Mg Tablet, 10 MG PO HS for allergies 07/23/13 Diltiazem Hcl (DILTIAZEM 24HR CD) 120 Mg Cap.er.24h, 120 MG PO DAILY for HTN 07/23/13 Discontinued Scripts Hydrocodone/Apap 5-325 (NORCO 5-325 TABLET) 1 Each Tablet, 0.5-1 TAB PO PRN Q6HRS PRN for PAIN, #8 TAB 0 Refills Prov:AKI VIZCARRA DO 04/16/19 Doxycycline Monohydrate (DOXYCYCLINE MONOHYDRATE) 100 Mg Capsule, 1 CAP PO BID for COPD for 5 Days, #10 CAP Prov:NABIL SCHERER MD 04/02/19 Indomethacin (INDOMETHACIN) 50 Mg Capsule, 1 CAP PO BID PRN for PAIN, #20 CAP Prov:LION CARRANZA Jr. DO 12/31/18 JUNE CORREA MD Jun 27, 2019 13:05
--- NOTE | 2019-06-27 13:27 | NUR ---
SS following up with discharge planning. Discharge orders received for home healthcare. SS and SW, Keri, met with pt to discuss home healthcare. Pt reported that she was on services with [facility], ; fax [phone]. Pt reported that she has home oxygen at home and would just need a ride home. Pt verified address. SS phoned and faxed discharge orders and referral to [facility]. Pt will discharge today and return to home at 1500 via [employer] transportation, . Pt's RN notified.
[2019-06-27 14:42] VITALS: BP 120/86
--- NOTE | 2019-06-27 15:45 | NUR ---
Pt discharged to home per [facility]. Discharge instructions reviewed and questions answered. Pt verbalized understanding.
[2019-07-01] MEDS ORDERED: ERGOCALCIFEROL (VITAMIN D2) 50,000 UNIT CAPSULE. PO SCH (09:00)
== END 2019-06-27 15:45 | disposition home health service (06) | DRG 177 ==
LOC: ER 13:00 → 6 SOUTH 14:34 → ER 16:51
PROVIDERS: ADMIT Family Medicine; ATTEND Family Medicine
DX: J15.6 Pneumonia due to other Gram-negative bacteria (principal); J96.21 Acute and chronic respiratory failure with hypoxia; J44.0 Chronic obstructive pulmonary disease with (acute) lower respiratory infection; J44.1 Chronic obstructive pulmonary disease with (acute) exacerbation; J98.11 Atelectasis; J15.9 Unspecified bacterial pneumonia; J20.9 Acute bronchitis, unspecified; E10.9 Type 1 diabetes mellitus without complications; E78.00 Pure hypercholesterolemia, unspecified; E78.5 Hyperlipidemia, unspecified; F17.210 Nicotine dependence, cigarettes, uncomplicated; I11.0 Hypertensive heart disease with heart failure; I25.10 Atherosclerotic heart disease of native coronary artery without angina pectoris; I27.20 Pulmonary hypertension, unspecified; I50.9 Heart failure, unspecified; M41.9 Scoliosis, unspecified; Z96.649 Presence of unspecified artificial hip joint; K21.9 Gastro-esophageal reflux disease without esophagitis; M19.90 Unspecified osteoarthritis, unspecified site; I08.3 Combined rheumatic disorders of mitral, aortic and tricuspid valves; Z79.4 Long term (current) use of insulin; Z82.49 Family history of ischemic heart disease and other diseases of the circulatory system; Z82.5 Family history of asthma and other chronic lower respiratory diseases; Z83.3 Family history of diabetes mellitus; Z99.81 Dependence on supplemental oxygen; Z88.6 Allergy status to analgesic agent; Z79.899 Other long term (current) drug therapy
CPT/HCPCS: 36415; 36600; 71045; 71250; 80053; 81001; 82805; 83605; 83880; 84484; 85025; 87040; 87086; 87804; 93005; 94640; 94644; G0238; J2405; J2930; J3010; J3490; J7060; G0378; J7613; J7626

== ENCOUNTER 2019-09-13 14:42 | Emergency (ER) | payer OTHER ==
[~2019-09-13] VITALS: Ht 157.5 cm; Wt 58.6 kg
[~2019-09-13 14:42] MED LIST changes: +GUAI5SYR PO
--- NOTE | 2019-09-13 14:50 | PHYS DOC ---
Past Medical History Past Medical History: Asthma, CHF, COPD, Diabetes-Type I, High Cholesterol, Hypertension, Other Additional Past Medical Histor: SCHOLOSIS, BACK PAIN, GOUT Past Surgical History: Hip Replacement Additional Past Surgical Histo: R hip, Upper L kidney removed, 5 back surgeries due to fall Smoking Status: Former Smoker Alcohol Use: None Drug Use: None General Adult HPI: HPI: 64-year-old female significant history of hypertension, COPD, who presents for evaluation of a 1 day history of diffuse abdominal pain. Described as dull and nonradiating. Associated nausea and nonbloody/nonbilious emesis. No diarrhea. No flank pain. No dysuria or hematuria. No fevers or chills. No prior abdominal surgeries. No aggravating or alleviating factors. Review of Systems: Review of Systems: Gen: No fever, chills. Eyes: No blurred vision, diplopia. ENT: No nasal congestion, sore throat. CV: No CP, palpitations. Resp. No SOB, cough. GI: Reports abd pain, N/V. : No dysuria, hematuria. Neuro: No MARADIAGA, dizziness, weakness. MSK: No myalgia, arthralgia, back pain. Skin: No acute rash or lesion. Heart Score: Risk Factors: Risk Factors: DM, Current or recent (<one month) smoker, HTN, HLP, family history of CAD, obesity. Risk Scores: Score 0 - 3: 2.5% MACE over next 6 weeks - Discharge Home Score 4 - 6: 20.3% MACE over next 6 weeks - Admit for Clinical Observation Score 7 - 10: 72.7% MACE over next 6 weeks - Early Invasive Strategies Allergies: Allergies: Allergies Coded Allergies Type Severity Reaction Last Updated Verified aspirin Allergy Intermediate 06/13/18 Yes Physical Exam: PE: Gen: NAD. Well nourished. Head: NC/AT. Eyes: No scleral icterus. No conjunctival injection. ENT: MMM. Posterior OP clear. Neck: Supple. NT. No JVD. CV: RRR. No M/R/G. Peripheral pulses intact. Resp: CTAB. No W/C/R. Abd: Soft. Mild distention. Nonfocal tenderness. No peritoneal signs. MSK: No peripheral cyanosis. No edema. Neuro: Awake and alert. Skin. Warm. Dry. Psych: Appropriate mood & affect. EKG: EKG: [] Radiology/Procedures: Radiology/Procedures: Exam: CT of abdomen and pelvis with contrast INDICATION: Diffuse abdominal pain, nausea vomiting TECHNIQUE: Sequential axial images through the abdomen and pelvis obtained following the administration of 75 mL of Omni 300 IV contrast. Sagittal and coronal reformatted images were reconstructed from the axial data and reviewed. Comparisons: 12/11/2018 FINDINGS: Heart size is normal. No pericardial effusion. There is patchy airspace disease at the left lung base. No effusion. Several hypoattenuating cystic lesions are noted within the liver, which is similar when compared to the prior exam. Spleen, pancreas and adrenals are unremarkable. Gallbladder surgically absent. Postprocedural changes noted at the lower pole of the left kidney. No perinephric inflammation or hydronephrosis. No renal or ureteral calculi are identified. Bladder is distended and appears thin-walled. Uterus is nonenlarged. No abnormal adnexal mass Large and small bowel are unremarkable. No free intra-abdominal air or fluid. No obstruction. Abdominal aorta has a normal course and caliber. Abdominal vasculature is patent. No enlarged abdominal lymph nodes are identified. Scoliotic curvature of the lumbar spine. No suspicious osseous lesions or acute fractures. IMPRESSION: 1. No acute process identified abdomen or pelvis 2. Patchy airspace disease at the left lung base may represent atelectasis. Superimposed infectious process is difficult to exclude. Exposure: One or more of the following in the visualized dose reduction techniques were utilized for this examination: 1. Automated exposure control 2. Adjustment of the MA and/or KV according to patient size 3. Use of iterative of reconstructive technique Electronically signed by: Abby Castro MD (09/13/2019 4:21 PM) [id number] Course & Med Decision Making: Course & Med Decision Making Pertinent Labs and Imaging studies reviewed. (See chart for details) In summary, 64-year-old female who presents for evaluation of diffuse abdominal discomfort with nausea and vomiting. Benign abdominal exam. Lab work unremarkable. Urinalysis not indicative of UTI. CT abdomen/pelvis fails to reveal any acute intra-abdominal pathology to account for her discomfort. Pain is improved following medication. Remains well-appearing and nontoxic. Will be treated empirically with prescription pantoprazole. Outpatient follow-up. Re turn precautions given. Rasheeda Disclaimer: Rasheeda Disclaimer: This electronic medical record was generated, in whole or in part, using a voice recognition dictation system. Departure Departure Impression: Primary Impression: Abdominal pain Disposition: HOME, SELF-CARE Condition: STABLE Referrals: JACKIE REESE MD (PCP) Patient Instructions: Abdominal Pain (Nonspecific) Scripts Pantoprazole Sodium (PANTOPRAZOLE SODIUM ) 40 Mg Tablet.dr 40 MG PO DAILYAC for GERD, #30 TAB Prov: CARISA FOSTER DO 09/13/19 Ondansetron (ONDANSETRON ODT) 4 Mg Tab.rapdis 1 TAB PO PRN Q6-8HRS, #16 TAB Prov: CARISA FOSTER DO 09/13/19 Justicifation of Admission Dx: Justifications for Admission: Justification of Admission Dx: N/A CARISA FOSTER DO Sep 13, 2019 14:49
[2019-09-13] MEDS ORDERED: IV NORMAL SALINE 500ML BAG 500 ML IV ONE (15:00)
[2019-09-13] MEDS ORDERED: ONDANSETRON PF 4 MG/2 ML VIAL. IVP ONE (15:00)
[2019-09-13 15:03] LABS: BASO % 1 % (0-3); EOS # 0.3 x10^3/uL (0.0-0.7); EOS % 5 % (0-3); HEMATOCRIT 34.6 % (36.0-47.0); HEMOGLOBIN 11.5 g/dL (12.0-15.5); LYMPH % 16 % (24-48); MEAN CORPUSCULAR HEMOGLOBIN 30 pg (25-35); MEAN CORPUSCULAR HGB CONC 33 g/dL (31-37); MEAN CORPUSCULAR VOLUME 89 fL (79-100); MONO # 0.7 x10^3/uL (0.0-1.1); MONO % 10 % (0-9); NEUT # 4.3 x10^3/uL (1.8-7.7); NEUT % 69 % (31-73); PLATELET COUNT 459 x10^3/uL (140-400); RED BLOOD COUNT 3.87 x10^6/uL (3.50-5.40); WHITE BLOOD COUNT 6.3 x10^3/uL (4.0-11.0)
[2019-09-13 15:12] LABS: CALCIUM 8.8 mg/dL (8.5-10.1); CREATININE 0.8 mg/dL (0.6-1.0); GFR 72.4; POTASSIUM 3.3 mmol/L (3.5-5.1)
[2019-09-13] MEDS ORDERED: fentaNYL PF VIAL 100 MCG/2 ML VIAL IVP ONE (15:15)
[2019-09-13 15:17] LABS: ALBUMIN 3.6 g/dL (3.4-5.0); ALBUMIN/GLOBULIN RATIO 1.1 (1.0-1.7); MAGNESIUM 1.5 mg/dL (1.8-2.4); TOTAL BILIRUBIN 0.4 mg/dL (0.2-1.0); TOTAL PROTEIN 6.9 g/dL (6.4-8.2)
[2019-09-13] MEDS ORDERED: CONTRAST GIVEN. MC PRN (15:30)
[2019-09-13] MEDS ORDERED: IOHEXOL 300 MG/ML 100ML VIAL. IV ONE (15:30)
[2019-09-13] MEDS ORDERED: MORPHINE SULFATE 4 MG/ML VIAL. IV ONE (16:15)
--- NOTE | 2019-09-13 16:24 | RAD ---
Exam: CT of abdomen and pelvis with contrast INDICATION: Diffuse abdominal pain, nausea vomiting TECHNIQUE: Sequential axial images through the abdomen and pelvis obtained following the administration of 75 mL of Omni 300 IV contrast. Sagittal and coronal reformatted images were reconstructed from the axial data and reviewed. Comparisons: 12/11/2018 FINDINGS: Heart size is normal. No pericardial effusion. There is patchy airspace disease at the left lung base. No effusion. Several hypoattenuating cystic lesions are noted within the liver, which is similar when compared to the prior exam. Spleen, pancreas and adrenals are unremarkable. Gallbladder surgically absent. Postprocedural changes noted at the lower pole of the left kidney. No perinephric inflammation or hydronephrosis. No renal or ureteral calculi are identified. Bladder is distended and appears thin-walled. Uterus is nonenlarged. No abnormal adnexal mass Large and small bowel are unremarkable. No free intra-abdominal air or fluid. No obstruction. Abdominal aorta has a normal course and caliber. Abdominal vasculature is patent. No enlarged abdominal lymph nodes are identified. Scoliotic curvature of the lumbar spine. No suspicious osseous lesions or acute fractures. IMPRESSION: 1. No acute process identified abdomen or pelvis 2. Patchy airspace disease at the left lung base may represent atelectasis. Superimposed infectious process is difficult to exclude. Exposure: One or more of the following in the visualized dose reduction techniques were utilized for this examination: 1. Automated exposure control 2. Adjustment of the MA and/or KV according to patient size 3. Use of iterative of reconstructive technique Electronically signed by: Abby Castro MD (09/13/2019 4:21 PM) [id number]
[2019-09-13 16:34] LABS: BILIRUBIN,URINE NEGATIVE (NEG); CLARITY,URINE CLEAR; COLOR,URINE YELLOW; NITRITE,URINE NEGATIVE (NEG); PH,URINE 6.5 (<5.0-8.0); PROTEIN,URINE NEGATIVE (NEG-TRACE); UROBILINOGEN,URINE 0.2 mg/dL (0.2 mg/dL)
[2019-09-13 16:39] VITALS: BP 123/64
[2019-09-13 16:45] LABS: BACTERIA,URINE FEW /HPF (0-FEW); SQUAMOUS EPITHELIAL CELL,UR FEW /LPF
[2019-09-13] MEDS ORDERED: ONDA4TAB12 PO (16:56)
[2019-09-13] MEDS ORDERED: PANT40TA77 PO (16:56)
== END 2019-09-13 17:13 | disposition home or self-care (01) ==
LOC: ER 14:42
DX: R10.84 Generalized abdominal pain (principal); R11.2 Nausea with vomiting, unspecified; J44.9 Chronic obstructive pulmonary disease, unspecified; E78.00 Pure hypercholesterolemia, unspecified; I11.0 Hypertensive heart disease with heart failure; I50.9 Heart failure, unspecified; E10.9 Type 1 diabetes mellitus without complications; M10.9 Gout, unspecified; Z87.891 Personal history of nicotine dependence; Z98.890 Other specified postprocedural states; Z88.6 Allergy status to analgesic agent
CPT/HCPCS: 36415; 74177; 80053; 81001; 83690; 83735; 85025; 96374; 96375; 99285; J2270; J2405; J3010; J7040; Q9967

== ENCOUNTER 2020-01-02 08:49 | Emergency (ER) | payer OTHER ==
[~2020-01-02] VITALS: Ht 157.5 cm; Wt 59.0 kg
[~2020-01-02 08:49] MED LIST changes: +ONDA4TAB12 PO; +PANT40TA77 PO
[2020-01-02 09:26] LABS: BILIRUBIN,URINE SMALL (NEG); CLARITY,URINE CLEAR; COLOR,URINE YELLOW; NITRITE,URINE NEGATIVE (NEG); PROTEIN,URINE NEGATIVE (NEG-TRACE)
[2020-01-02 09:27] LABS: BASO # 0.1 x10^3/uL (0.0-0.2); BASO % 1 % (0-3); EOS # 0.3 x10^3/uL (0.0-0.7); EOS % 5 % (0-3); HEMATOCRIT 34.9 % (36.0-47.0); HEMOGLOBIN 11.6 g/dL (12.0-15.5); LYMPH # 1.1 x10^3/uL (1.0-4.8); LYMPH % 16 % (24-48); MEAN CORPUSCULAR HEMOGLOBIN 30 pg (25-35); MEAN CORPUSCULAR HGB CONC 33 g/dL (31-37); MEAN CORPUSCULAR VOLUME 89 fL (79-100); MONO # 0.8 x10^3/uL (0.0-1.1); MONO % 13 % (0-9); NEUT # 4.3 x10^3/uL (1.8-7.7); NEUT % 65 % (31-73); PLATELET COUNT 402 x10^3/uL (140-400); RED BLOOD COUNT 3.93 x10^6/uL (3.50-5.40); RED CELL DISTRIBUTION WIDTH 14.4 % (11.5-14.5); WHITE BLOOD COUNT 6.7 x10^3/uL (4.0-11.0)
[2020-01-02 09:35] LABS: CALCIUM 9.1 mg/dL (8.5-10.1); CREATININE 0.7 mg/dL (0.6-1.0); GFR 84.5
[2020-01-02 09:36] LABS: AMORPHOUS SEDIMENT,UR PRESENT /HPF; BACTERIA,URINE 0 /HPF (0-FEW); HYALINE CASTS, URINE OCCASIONAL /HPF; RBC,URINE 0 /HPF (0-2); WBC,URINE OCC /HPF (0-4)
[2020-01-02 09:38] LABS: C-REACTIVE PROTEIN 2.1 mg/L (0-3.3)
[2020-01-02 09:40] LABS: ALBUMIN 3.4 g/dL (3.4-5.0); TOTAL BILIRUBIN 0.4 mg/dL (0.2-1.0); TOTAL PROTEIN 6.9 g/dL (6.4-8.2)
--- NOTE | 2020-01-02 09:46 | PHYS DOC ---
Past Medical History Past Medical History: Asthma, CHF, COPD, Diabetes-Type I, High Cholesterol, Hypertension, Other Additional Past Medical Histor: SCHOLOSIS, BACK PAIN, GOUT Past Surgical History: Hip Replacement Additional Past Surgical Histo: R hip, Upper L kidney removed, 5 back surgeries due to fall Smoking Status: Former Smoker Alcohol Use: None Drug Use: None General Adult EDM: Chief Complaint: CHEST PAIN HPI: HPI: Patient 64-year-old female with past medical history of congestive heart failure and COPD on 4 L of oxygen at home who presents to the emergency room complaining of right-sided chest pain, left lower quadrant abdominal pain, increased shortness of breath. Patient states that she has had many of these problems previously, however they are worse than they typically are. She states that she has lower abdominal pain and she takes some kind of medication for this. She states the last time her symptoms got this bad she had to be admitted to the hospital for a week. She states that the abdominal pain started about a week ag o. The chest pain and shortness of breath started over the last 5 days. Her has also been ill and she states that is due to his emphysema. She states she has been giving him her treatments to help and they have ran out of DuoNeb treatments at home. She has a mild chronic cough that she states is not changed. She states the right-sided chest pain feels sharp and is worse with deep breaths. She denies any nausea, vomiting, diarrhea, constipation. She has not had any fevers that she knows of. Review of Systems: Review of Systems: General: Denies fever, chills, sweats, fatigue Eyes: Denies drainage, blurred vision, eye redness HENT: Denies rhinorrhea, sore throat, earache Respiratory: Reports cough, shortness of breath, wheezing Cardiac: Denies edema, palpitations. Reports chest pain GI: Denies Nausea, vomiting. Reports abdominal pain MSK: Denies back pain, neck pain Skin: Denies rash, jaundice Neuro: Denies headache, dizziness Psychiatric: Denies SI/HI Heart Score: Risk Factors: Risk Factors: DM, Current or recent (<one month) smoker, HTN, HLP, family history of CAD, obesity. Risk Scores: Score 0 - 3: 2.5% MACE over next 6 weeks - Discharge Home Score 4 - 6: 20.3% MACE over next 6 weeks - Admit for Clinical Observation Score 7 - 10: 72.7% MACE over next 6 weeks - Early Invasive Strategies Allergies: Allergies: Allergies Coded Allergies Type Severity Reaction Last Updated Verified aspirin Allergy Intermediate 06/13/18 Yes Physical Exam: PE: General: Awake, alert, NAD. Well Nourished, well hydrated. Cooperative HEENT: Atraumatic, EOMI, PERRL, airway patent, moist oral mucosa Neck: Supple, trachea midline Respiratory: Wheezing bilaterally, decreased breath sounds bilaterally, normal effort CV: RRR, no murmur, cap refill <2 GI: Soft, no masses, lower abdominal tenderness, mild distention, no rebound, no guarding, no signs of peritonitis MSK: No obvious deformities Skin: Warm, dry, intact Neuro: A&O x3, speech NL, sensory and motor grossly intact, no focal deficits Psych: Normal affect, normal mood, not suicidal or homicidal Current Patient Data: Labs: Laboratory Tests Test 01/02/20 09:13 White Blood Count 6.7 x10^3/uL (4.0-11.0) Red Blood Count 3.93 x10^6/uL (3.50-5.40) Hemoglobin 11.6 g/dL (12.0-15.5) L Hematocrit 34.9 % (36.0-47.0) L Mean Corpuscular Volume 89 fL (79-100) Mean Corpuscular Hemoglobin 30 pg (25-35) Mean Corpuscular Hemoglobin Concent 33 g/dL (31-37) Red Cell Distribution Width 14.4 % (11.5-14.5) Platelet Count 402 x10^3/uL (140-400) H Neutrophils (%) (Auto) 65 % (31-73) Lymphocytes (%) (Auto) 16 % (24-48) L Monocytes (%) (Auto) 13 % (0-9) H Eosinophils (%) (Auto) 5 % (0-3) H Basophils (%) (Auto) 1 % (0-3) Neutrophils # (Auto) 4.3 x10^3/uL (1.8-7.7) Lymphocytes # (Auto) 1.1 x10^3/uL (1.0-4.8) Monocytes # (Auto) 0.8 x10^3/uL (0.0-1.1) Eosinophils # (Auto) 0.3 x10^3/uL (0.0-0.7) Basophils # (Auto) 0.1 x10^3/uL (0.0-0.2) Urine Color Yellow Urine Clarity Clear Urine pH 6.0 (<5.0-8.0) Urine Specific [place] 1.025 (1.000-1.030) Urine Protein Negative mg/dL (NEG-TRACE) Urine Glucose (UA) Negative mg/dL (NEG) Urine Ketones (Stick) Trace mg/dL (NEG) Urine Blood Negative (NEG) Urine Nitrite Negative (NEG) Urine Bilirubin Small (NEG) Urine Urobilinogen Dipstick 1.0 mg/dL (0.2 mg/dL) Urine Leukocyte Esterase Negative (NEG) Urine RBC 0 /HPF (0-2) Urine WBC Occ /HPF (0-4) Urine Amorphous Sediment Present /HPF Urine Bacteria 0 /HPF (0-FEW) Urine Hyaline Casts Occasional /HPF Urine Mucus Slight /LPF Sodium Level 139 mmol/L (136-145) Potassium Level 4.0 mmol/L (3.5-5.1) Chloride Level 104 mmol/L (98-107) Carbon Dioxide Level 32 mmol/L (21-32) Anion Gap 3 (6-14) L Blood Urea Nitrogen 13 mg/dL (7-20) Creatinine 0.7 mg/dL (0.6-1.0) Estimated GFR (Cockcroft-Gault) 84.5 BUN/Creatinine Ratio 19 (6-20) Glucose Level 85 mg/dL (70-99) Calcium Level 9.1 mg/dL (8.5-10.1) Total Bilirubin 0.4 mg/dL (0.2-1.0) Aspartate Amino Transferase (AST) 13 U/L (15-37) L Alanine Aminotransferase (ALT) 13 U/L (14-59) L Alkaline Phosphatase 94 U/L (46-116) Lactate Dehydrogenase 194 U/L (81-234) Creatine Kinase 64 U/L (26-192) Troponin I Quantitative < 0.017 ng/mL (0.000-0.055) C-Reactive Protein, Quantitative 2.1 mg/L (0-3.3) Total Protein 6.9 g/dL (6.4-8.2) Albumin 3.4 g/dL (3.4-5.0) Albumin/Globulin Ratio 1.0 (1.0-1.7) Lipase 43 U/L (73-393) L Laboratory Tests 01/02/20 09:13 Laboratory Tests 01/02/20 09:13 Vital Signs: Vital Signs Date Time Temp Pulse Resp B/P (MAP) Pulse Ox O2 Delivery O2 Flow Rate FiO2 01/02/20 09:18 97.8 84 22 150/87 (108) 88 Room Air 97.8 EKG: EKG: [] Radiology/Procedures: Radiology/Procedures: [] Course & Med Decision Making: Course & Med Decision Making Pertinent Labs and Imaging studies reviewed. (See chart for details) Patient is 64-year-old female who presents to the emergency room complaining of chest pain, abdominal pain, shortness of breath. Patient's is also present in the emergency room being evaluated for similar symptoms. Is unclear at this time whether this is due to infectious pathology or exacerbation of her chronic illnesses. Differential diagnosis includes congestive heart failure exacerbation, COPD exacerbation, pneumonia, coronavirus 19. Patient is not requiring any additional oxygen today. She does appear to be diffusely weak. She is having a difficult time with walking which she states is unusual. Work- up for shortness of breath was ordered including CBC, CMP, CRP, troponin, BNP, chest x-ray, EKG, coronavirus test. Work up unremarkable. Patient improved with steroids and duonebs. This appears to be a COPD exacerbation. Patient was able to ambulate well with her cane while in the Emergency Room. Will discharge her home with prednisone burst. Care discussed with daughter who will help patient at home. Patient's test results and vitals while in the ED were fully reviewed and discussed with the patient. Patient is stable and at this time does not need admission to the hospital. We have discussed strict return precautions and the importance of following up with their Primary Care Physician. Patient stated understanding and was given an opportunity to ask any questions. Patient is in agreement with plan. Dragon Disclaimer: [place] Disclaimer: This electronic medical record was generated, in whole or in part, using a voice recognition dictation system. Departure Departure Impression: Primary Impression: COPD exacerbation Disposition: 01 HOME, SELF-CARE Condition: STABLE Referrals: JACKIE REESE MD (PCP) Patient Instructions: Chronic Obstructive Pulmonary Disease Exacerbation Scripts Prednisone (PREDNISONE) 50 Mg Tablet 1 TAB PO DAILY, #5 TAB Prov: ALY RAINEY MD 01/02/20 Justicifation of Admission Dx: Justifications for Admission: Justification of Admission Dx: Yes ALY RAINEY MD Jan 02, 2020 09:46
--- NOTE | 2020-01-02 09:48 | RAD ---
Examination: CHEST AP ONLY History: Reason: chest pain / Spl. Instructions: / History: Comparison: 06/24/2019 CT chest without contrast, 06/24/2019 Portable Chest X-ray Exam. Findings: AP portable upright frontal view of the chest was obtained. The cardiomediastinal silhouette is normal. Right perihilar atelectasis is suggested but similar to prior exam. No new infiltrate. There is no pneumothorax. No pleural effusion is appreciated. No acute bone abnormality. Severe dextroconvex scoliosis is present. 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 Right thoracic cavity is much smaller in volume as compared to the left thoracic cavity. IMPRESSION: No acute cardiopulmonary process. No significant change. Electronically signed by: Tomi Badillo MD (01/02/2020 9:45 AM) [id number]
[2020-01-02] MEDS ORDERED: DEXAMETHASONE SOD PHOS 4 MG/ML VIAL IVP ONE (10:15)
[2020-01-02] MEDS ORDERED: IPRATRPIUM/ALBUTEROL 0.5/2.5MG 3 ML NEBU. NEB ONE (10:30)
[2020-01-02] MEDS ORDERED: PRED50TA PO (10:37)
[2020-01-02 11:24] VITALS: BP 137/72
--- NOTE | 2020-01-03 01:34 | EKG ---
[facility] [address] [place] [address] Test Date: 2020-01-02 Test Time: 09:25:56 Pat Name: TREASURE CALVERT Department: Room: Gender: F Supervisor Of Communications: : 1955 Requested By: ALY RAINEY Order Number: [id number] Reading MD: Oscar Jones Measurements Intervals [place] Rate: 76 P: 59 SC: 152 QRS: -24 QRSD: 116 T: 28 QT: 398 QTc: 452 Interpretive Statements SINUS RHYTHM LEFT ATRIAL ABNORMALITY LEFTWARD AXIS RIGHT BUNDLE BRANCH BLOCK ABNORMAL ECG Electronically Signed On 01-03-2020 12:21:13 CDT by Oscar Jones
--- NOTE | 2020-01-04 14:09 | NUR ---
IP: Informed pt of negative COVID test. Pt verbalized understanding. She voiced concern of , Thierry, who is currently an inpatient and their living conditions. Instructed pt, I would have the executive secretary social welfare contact her daughter per her request.
== END 2020-01-02 12:11 | disposition home or self-care (01) ==
LOC: ER 08:49 → 6 SOUTH 10:35 → UNDOADMIN 10:35 → ER 12:11
DX: J44.1 Chronic obstructive pulmonary disease with (acute) exacerbation (principal); Z20.828 Contact with and (suspected) exposure to other viral communicable diseases; R07.89 Other chest pain; R10.32 Left lower quadrant pain; R06.02 Shortness of breath; I11.0 Hypertensive heart disease with heart failure; I50.9 Heart failure, unspecified; E10.9 Type 1 diabetes mellitus without complications; E78.00 Pure hypercholesterolemia, unspecified; Z87.891 Personal history of nicotine dependence; Z98.890 Other specified postprocedural states; Z88.6 Allergy status to analgesic agent
CPT/HCPCS: 36415; 71045; 80053; 81001; 82550; 83615; 83690; 83880; 84484; 85025; 86140; 93005; 94640; 96374; 99285; J1100; U0003

== ENCOUNTER 2020-01-18 09:33 | Emergency (ER) | payer OTHER ==
[~2020-01-18] VITALS: Ht 157.5 cm; Wt 59.0 kg
[~2020-01-18 09:33] MED LIST changes: +GUAI400T78 PO; +PRED50TA PO
--- NOTE | 2020-01-18 10:23 | RAD ---
EXAM: CHEST AP ONLY INDICATION: Reason: soa / Spl. Instructions: / History: . TECHNIQUE: Single view COMPARISON: 01/10/2020, 01/02/2020 chest x-ray. Also CT chest without IV contrast 06/24/2019 FINDINGS: Moderately enlarged heart is unchanged. Tortuosity of the thoracic aorta is redemonstrated. No hilar or mediastinal mass is apparent. There is deformity to the mediastinal contours due to marked rightward convexity scoliotic curvature of the thoracic spine. The lungs are symmetrically aerated due to thoracic spinal and chest wall deformity but show no change in aeration with the clear left lung and low volume right lung showing medial right basilar atelectatic changes similar to prior.. No pneumothorax or pleural effusion is identified. No new osseous abnormalities. IMPRESSION: Cardiomegaly and stable medial right basilar atelectasis related to severe chest wall deformity as described. No acute superimposed process. Electronically signed by: Alona Davila MD (01/18/2020 10:19 AM) [id number]
[2020-01-18 10:35] LABS: BILIRUBIN,URINE NEGATIVE (NEG); CLARITY,URINE CLEAR; COLOR,URINE YELLOW; NITRITE,URINE NEGATIVE (NEG); PH,URINE 6.5 (<5.0-8.0); PROTEIN,URINE NEGATIVE (NEG-TRACE); UROBILINOGEN,URINE 0.2 mg/dL (0.2 mg/dL)
[2020-01-18 10:58] LABS: BACTERIA,URINE 0 /HPF (0-FEW); RBC,URINE 0 /HPF (0-2); WBC,URINE 0 /HPF (0-4)
[2020-01-18 11:10] VITALS: BP 127/73
--- NOTE | 2020-01-18 11:59 | PHYS DOC ---
Past Medical History Past Medical History: Asthma, CHF, COPD, Diabetes-Type I, High Cholesterol, Hypertension, Other Additional Past Medical Histor: SCOLIOSIS, BACK PAIN, GOUT Past Surgical History: Hip Replacement Additional Past Surgical Histo: R hip, Upper L kidney removed, 5 back surgeries due to fall Smoking Status: Former Smoker Alcohol Use: None Drug Use: None General Adult EDM: Chief Complaint: SHORTNESS OF BREATH HPI: HPI: Patient is a 64 year old female who was taken here by EMS from her house because she has trouble breathing and right-sided rib pain. Patient had chronic right-sided rib pain due to severe scoliosis, she also has history of CHF and COPD. Patient was just discharged from this hospital yesterday after she was admitted for a week due to weakness and trouble breathing. Patient said the reason she called EMS to take her here because she was told yesterday during the discharge process that if she has chest pain or trouble breathing she need come back to ER. Patient denies any fever. Patient denied cough. Patient denied any nausea or vomiting. Review of Systems: Review of Systems: Constitutional: Denies fever or chills. [] Eyes: Denies change in visual acuity. [] HENT: Denies nasal congestion or sore throat. [] Respiratory: Denies cough, positive for shortness of breath. [] Cardiovascular: Denies chest pain or edema. [] GI: Denies abdominal pain, nausea, vomiting, bloody stools or diarrhea. [] : Denies dysuria. [] Musculoskeletal: Denies back pain or joint pain. [] Integument: Denies rash. [] Neurologic: Denies headache, focal weakness or sensory changes. [] Endocrine: Denies polyuria or polydipsia. [] Lymphatic: Denies swollen glands. [] Psychiatric: Denies depression or anxiety. [] Heart Score: Risk Factors: Risk Factors: DM, Current or recent (<one month) smoker, HTN, HLP, family history of CAD, obesity. Risk Scores: Score 0 - 3: 2.5% MACE over next 6 weeks - Discharge Home Score 4 - 6: 20.3% MACE over next 6 weeks - Admit for Clinical Observation Score 7 - 10: 72.7% MACE over next 6 weeks - Early Invasive Strategies Allergies: Allergies: Allergies Coded Allergies Type Severity Reaction Last Updated Verified aspirin Allergy Intermediate 06/13/18 Yes Physical Exam: PE: Constitutional: Well developed, well nourished, no acute distress, non-toxic appearance. [] HENT: Normocephalic, atraumatic, bilateral external ears normal, oropharynx moist, no oral exudates, nose normal. [] Eyes: PERRLA, EOMI, conjunctiva normal, no discharge. [] Neck: Normal range of motion, no tenderness, supple, no stridor. [] Cardiovascular:Heart rate regular rhythm, no murmur [] Lungs & Thorax: Bilateral breath sounds clear to auscultation [] Abdomen: Bowel sounds normal, soft, no tenderness, no masses, no pulsatile masses. [] Skin: Warm, dry, no erythema, no rash. [] Back: No tenderness, no CVA tenderness. Severe upper scoliosis. Extremities: No tenderness, no cyanosis, no clubbing, ROM intact, no edema. [] Neurologic: Alert and oriented X 3, normal motor function, normal sensory function, no focal deficits noted. [] Psychologic: Affect normal, judgement normal, mood normal. [] Current Patient Data: Labs: Laboratory Tests Test 01/18/20 10:25 Urine Collection Type Unknown Urine Color Yellow Urine Clarity Clear Urine pH 6.5 (<5.0-8.0) Urine Specific [place] 1.010 (1.000-1.030) Urine Protein Negative mg/dL (NEG-TRACE) Urine Glucose (UA) Negative mg/dL (NEG) Urine Ketones (Stick) Negative mg/dL (NEG) Urine Blood Negative (NEG) Urine Nitrite Negative (NEG) Urine Bilirubin Negative (NEG) Urine Urobilinogen Dipstick 0.2 mg/dL (0.2 mg/dL) Urine Leukocyte Esterase Trace (NEG) Urine RBC 0 /HPF (0-2) Urine WBC 0 /HPF (0-4) Urine Bacteria 0 /HPF (0-FEW) Vital Signs: Vital Signs Date Time Temp Pulse Resp B/P (MAP) Pulse Ox O2 Delivery O2 Flow Rate FiO2 01/18/20 11:10 74 127/73 (91) 100 Nasal Cannula 2.0 01/18/20 09:35 98.6 22 98.6 EKG: EKG: EKG was done at 958, heart rate of 76 beats per minute, sinus rhythm, no ST segment elevation. Radiology/Procedures: Radiology/Procedures: [][facility] [address] [place] [address] IMAGING REPORT Signed PATIENT: TREASURE CALVERT AACCOUNT: [id number] : 1955 LOCATION: ER AGE: 64 SEX: F EXAM STATUS: REG ER ORD. PHYSICIAN: SHONDA BAIN DO REASON: soa PROCEDURE: CHEST AP ONLY EXAM: CHEST AP ONLY INDICATION: Reason: soa / Spl. Instructions: / History: . TECHNIQUE: Single view COMPARISON: 01/10/2020, 01/02/2020 chest x-ray. Also CT chest without IV contrast 06/24/2019 FINDINGS: Moderately enlarged heart is unchanged. Tortuosity of the thoracic aorta is redemonstrated. No hilar or mediastinal mass is apparent. There is deformity to the mediastinal contours due to marked rightward convexity scoliotic curvature of the thoracic spine. The lungs are symmetrically aerated due to thoracic spinal and chest wall deformity but show no change in aeration with the clear left lung and low volume right lung showing medial right basilar atelectatic changes similar to prior.. No pneumothorax or pleural effusion is identified. No new osseous abnormalities. IMPRESSION: Cardiomegaly and stable medial right basilar atelectasis related to severe chest wall deformity as described. No acute superimposed process. Electronically signed by: Mariaa Davila MD (01/18/2020 10:19 AM) [id number] DICTATED and SIGNED BY: MARIAA DAVILA MD DATE: 01/18/20 1019 Course & Med Decision Making: Course & Med Decision Making Pertinent Labs and Imaging studies reviewed. (See chart for details) Patient is a 63-year-old female who was evaluated in ER due to right-sided rib pain and trouble breathing. On examination there is no crepitus, no rib tenderness to palpation, her lung sounds were clear, she was in no acute distress. Patient with walking around went to the bathroom talking with staff without any problem. There is no further diagnostic work-up needed at this time because patient was just discharged from this hospital yesterday. Review her lab work that was done on the day of discharge did not show any acute problem. Rasheeda Disclaimer: Dragon Disclaimer: This electronic medical record was generated, in whole or in part, using a voice recognition dictation system. Departure Departure Impression: Primary Impression: Shortness of breath Disposition: 01 DC HOME SELF CARE/HOMELESS Condition: STABLE Referrals: UNKNOWN PCP NAME (PCP) FOLLOW UP WITH YOUR FAMILY DOCTOR NEXT WEEK. Patient Instructions: Shortness of Breath SHONDA BAIN DO Jan 18, 2020 11:58
== END 2020-01-18 14:45 | disposition home or self-care (01) ==
LOC: ER 09:33
DX: R06.02 Shortness of breath (principal); R07.81 Pleurodynia; R53.1 Weakness; I11.0 Hypertensive heart disease with heart failure; I50.9 Heart failure, unspecified; E10.9 Type 1 diabetes mellitus without complications; J44.9 Chronic obstructive pulmonary disease, unspecified; E78.00 Pure hypercholesterolemia, unspecified; M10.9 Gout, unspecified; Z87.891 Personal history of nicotine dependence; Z88.6 Allergy status to analgesic agent
CPT/HCPCS: 71045; 81001; 87086; 93005; 99285

== ENCOUNTER 2020-01-24 05:26 | Emergency (ER) | payer OTHER ==
[~2020-01-24] VITALS: Ht 157.5 cm; Wt 59.0 kg
--- NOTE | 2020-01-24 05:37 | PHYS DOC ---
Past Medical History Past Medical History: Asthma, CHF, COPD, Diabetes-Type I, High Cholesterol, Hypertension, Other Additional Past Medical Histor: SCOLIOSIS, BACK PAIN, GOUT Past Surgical History: Hip Replacement Additional Past Surgical Histo: R hip, Upper L kidney removed, 5 back surgeries due to fall Smoking Status: Former Smoker Alcohol Use: None Drug Use: None General Adult EDM: Chief Complaint: CHEST PAIN HPI: HPI: Patient is a 64 year old Female with past medical history of asthma and COPD presents with pleuritic chest pain which started this morning. Patient with cardiac risk factors of former smoker, diabetes, high blood pressure, and high cholesterol. Denies leg swelling or calf tenderness. Denies trauma. Denies fever or chills. Denies known exposure to COVID-19. Patient reports increased wheezing. Reports tried taking her nebulizer treatment at home without improvement. Review of Systems: Review of Systems: Constitutional: Denies fever or chills Eyes: Denies redness or eye pain HENT: Denies nasal congestion or sore throat Respiratory: Reports cough, wheezing, and shortness of breath Cardiovascular: Reports chest pain; denies palpitations GI: Denies abdominal pain, nausea, or vomiting : Denies dysuria or hematuria Musculoskeletal: Denies back pain; reports joint pain Integument: Denies rash or skin lesions Neurologic: Denies headache, focal weakness or sensory changes Complete systems were reviewed and found to be within normal limits, except as documented in this note. Heart Score: HEART Score for Chest Pain: HEART Score for Chest Pain Response (Comments) Value History Moderately Suspicious 1 ECG Normal 0 Age >45 - < 65 1 Risk Factors >3 Risk Factors or Hx CAD 2 Total 4 Risk Factors: Risk Factors: DM, Current or recent (<one month) smoker, HTN, HLP, family history of CAD, obesity. Risk Scores: Score 0 - 3: 2.5% MACE over next 6 weeks - Discharge Home Score 4 - 6: 20.3% MACE over next 6 weeks - Admit for Clinical Observation Score 7 - 10: 72.7% MACE over next 6 weeks - Early Invasive Strategies Allergies: Allergies: Allergies Coded Allergies Type Severity Reaction Last Updated Verified aspirin Allergy Intermediate 06/13/18 Yes Physical Exam: PE: Constitutional: Appears older than age, well nourished, no acute distress, non- toxic appearance HENT: Normocephalic, atraumatic Eyes: Conjunctiva normal, no discharge Neck: Normal range of motion, no tenderness, supple Lungs & Thorax: No respiratory distress, equal chest rise and fall, minimal expiratory wheezing Abdomen: Soft, no tenderness, distended Skin: Warm, dry, no erythema, no rash Extremities: No tenderness, ROM intact, no edema Neurologic: Alert and oriented X 3, no focal deficits noted Psychologic: Affect normal, judgment normal EKG: EKG: Findings @ 05:32 AM HR 90BPM Intervals - [place] 148ms, QRS 126ms, QT 374ms, QTc 462ms Interpretation: sinus rhythm, Left atrial abnormality, leftward axis, Right bundle branch block, RVH with repolarization abnormality, abnormal ECG Radiology/Procedures: Radiology/Procedures: [] Course & Med Decision Making: Course & Med Decision Making Pertinent Labs and Imaging studies reviewed. (See chart for details) Patient presents with chest pain. Significant cardiac risk factors. EKG stable. Labs obtained and pending. Sign out given to Dr. Diaz for further evaluation and final disposition. Discussed current findings and plan with patient, who acknowledges understanding and agreement. Rasheeda Disclaimer: Rasheeda Disclaimer: This electronic medical record was generated, in whole or in part, using a voice recognition dictation system. Departure Departure Impression: Primary Impression: Chest pain Qualified Codes: R07.9 - Chest pain, unspecified Referrals: UNKNOWN PCP NAME (PCP) AKI VIZCARRA DO Jan 24, 2020 05:37
[2020-01-24] MEDS ORDERED: IV NORMAL SALINE 1000ML BAG 1,000 ML IV ONE (06:00)
[2020-01-24] MEDS ORDERED: fentaNYL PF VIAL 100 MCG/2 ML VIAL IV ONE (06:00)
[2020-01-24 06:12] LABS: CALCIUM 8.7 mg/dL (8.5-10.1); CREATININE 0.6 mg/dL (0.6-1.0); POTASSIUM 3.6 mmol/L (3.5-5.1)
[2020-01-24 06:15] LABS: BASO % 1 % (0-3); EOS # 0.2 x10^3/uL (0.0-0.7); EOS % 5 % (0-3); HEMATOCRIT 29.4 % (36.0-47.0); HEMOGLOBIN 9.8 g/dL (12.0-15.5); LYMPH # 0.7 x10^3/uL (1.0-4.8); LYMPH % 17 % (24-48); MEAN CORPUSCULAR HEMOGLOBIN 30 pg (25-35); MEAN CORPUSCULAR HGB CONC 33 g/dL (31-37); MEAN CORPUSCULAR VOLUME 89 fL (79-100); MONO # 0.7 x10^3/uL (0.0-1.1); MONO % 16 % (0-9); NEUT # 2.7 x10^3/uL (1.8-7.7); NEUT % 61 % (31-73); PLATELET COUNT 406 x10^3/uL (140-400); RED CELL DISTRIBUTION WIDTH 14.5 % (11.5-14.5); WHITE BLOOD COUNT 4.4 x10^3/uL (4.0-11.0)
[2020-01-24] MEDS ORDERED: DEXAMETHASONE SOD PHOS 20 MG/5 ML VIAL. IVP ONE (06:15)
[2020-01-24 06:20] LABS: ALBUMIN/GLOBULIN RATIO 0.9 (1.0-1.7); MAGNESIUM 1.8 mg/dL (1.8-2.4); TOTAL BILIRUBIN 0.2 mg/dL (0.2-1.0); TOTAL PROTEIN 6.3 g/dL (6.4-8.2)
[2020-01-24 06:29] LABS: PROTHROMBIN TIME PATIENT 12.7 SEC (11.7-14.0)
[2020-01-24] MEDS ORDERED: IPRATRPIUM/ALBUTEROL 0.5/2.5MG 3 ML NEBU. NEB ONE (07:00)
--- NOTE | 2020-01-24 08:36 | EKG ---
[facility] [address] [place] [address] Test Date: 2020-01-24 Test Time: 05:32:28 Pat Name: TREASURE CALVERT Department: Room: Gender: F Obstetrics Gynecology Physician: : 1955 Requested By: AKI VIZCARRA Order Number: [id number] Reading MD: Measurements Intervals [place] Rate: 90 P: 54 IA: 148 QRS: -20 QRSD: 126 T: 32 QT: 374 QTc: 462 Interpretive Statements SINUS RHYTHM LEFT ATRIAL ABNORMALITY LEFTWARD AXIS RIGHT BUNDLE BRANCH BLOCK RVH WITH REPOLARIZATION ABNORMALITY ABNORMAL ECG RI6.02 No previous ECG available for comparison
--- NOTE | 2020-01-24 08:45 | RAD ---
CHEST AP ONLY History: Shortness of breath Comparison: January 18, 2020 Findings: Single view of the chest is submitted. There is again severe thoracic dextroscoliosis.. There is again volume loss of the right hemithorax. There is some hazy left base airspace opacity somewhat greater, also some interstitial opacity at the lung bases bilaterally slightly greater. There is no pneumothorax. No significant pleural fluid is identified by this exam. Heart size is similar. Impression: 1. Hazy left base airspace opacity is somewhat greater which could be due to edema or infiltrate, also interstitial opacity somewhat increased which may be due to interstitial edema or infiltrate. 2. There is again severe thoracic dextroscoliosis and volume loss of the right hemithorax. Electronically signed by: Mazin Reyes MD (01/24/2020 8:42 AM) [facility] HOSPITALJulianna
[2020-01-24] MEDS ORDERED: KETOROLAC 30 MG/ML VIAL. IVP ONE (09:15)
[2020-01-24] MEDS ORDERED: LEVO500T8 PO (09:26)
[2020-01-24 10:50] VITALS: BP 146/85
== END 2020-01-24 11:10 | disposition home or self-care (01) ==
LOC: ER 05:26
DX: R07.81 Pleurodynia (principal); R06.2 Wheezing; J44.9 Chronic obstructive pulmonary disease, unspecified; E78.00 Pure hypercholesterolemia, unspecified; I11.0 Hypertensive heart disease with heart failure; I50.9 Heart failure, unspecified; E10.9 Type 1 diabetes mellitus without complications; M10.9 Gout, unspecified; Z87.891 Personal history of nicotine dependence; Z88.6 Allergy status to analgesic agent
CPT/HCPCS: 36415; 71045; 80053; 83690; 83735; 83880; 84484; 85025; 85379; 85610; 85730; 93005; 94640; 96361; 96374; 96375; 99285; J1100; J1885; J3010; J7030